=== PATIENT | female | born 1950 | race Caucasian/White ===

== ENCOUNTER 2018-08-14 08:06 | Emergency (ER) | payer OTHER ==
[2018-08-14 09:07] LABS: Absolute Lymphocytes (CBC) 2.6 K/uL (0.7-4.9); Absolute Monocytes 0.5 K/uL (0.1-1.3); Absolute Neutrophil 5.2 K/uL (1.8-8.0); Basophils % 0.8 % (0-1.3); Eosinophils % 4.7 % (0-4.4); Hematocrit 38.8 % (36.0-45.0); Lymphocytes % 29.8 % (15.3-44.8); MPV 7.7 fL (7.6-11.3); Monocytes % 5.3 % (3.3-12.3); RBC Red Blood Cell Count 4.51 M/uL (3.86-4.86)
[2018-08-14 09:25] LABS: ALT/SGPT 25 U/L (12-78); AST/SGOT 13 U/L (15-37); Albumin 3.3 g/dL (3.4-5.0); Alkaline Phosphatase 85 U/L (45-117); BUN Blood Urea Nitrogen 19 mg/dL (7-18); Bicarbonate 30 mmol/L (21-32); Bilirubin Direct 0.1 mg/dL (0-0.2); Bilirubin Total 0.4 mg/dL (0.2-1.0); CKMB Creatine Kinase MB < 1.0 ng/mL (0.3-3.6); Creatine Phosphokinase 64 U/L (26-192); Glucose Level 139 mg/dL (74-106); Lipase 150 U/L (73-393); Magnesium 1.8 mg/dL (1.8-2.4); Potassium 3.4 mmol/L (3.5-5.1); Protein, Total 7.6 g/dL (6.4-8.2); Sodium Level 138 mmol/L (136-145); Troponin (Emerg Dept Use Only) < 0.02 ng/mL (0.0-0.045)
[2018-08-14] MEDS ORDERED: NA CHLORIDE 0.9% 1,000 ML ONE (09:26)
[2018-08-14] MEDS ORDERED: PANTOPRAZOLE 40 MG INJ ONE (09:26)
[2018-08-14] MEDS ORDERED: ONDANSETRON 4 MG/2 ML VIAL ONE (09:26)
--- NOTE | 2018-08-14 10:05 | ER ---
Nurse's Notes [facility] Name: Fela Ayoub Age: 67 yrs Sex: Female : 1950 Arrival Date: 08/14/2018 Time: 08:07 Bed 5 Private MD: Diagnosis: Vasovagal syncope Presentation: 08/14 08:36 Presenting complaint: Patient states: had labs drawn, had 4 episodes of vomiting and iw diarrhea, hx of heart stents. Transition of care: patient was not received from another setting of care. Onset of symptoms was August 14, 2018. Risk Assessment: Do you want to hurt yourself or someone else? Patient reports no desire to harm self or others. Initial Sepsis Screen: Does the patient meet any 2 criteria? No. Patient's initial sepsis screen is negative. Does the patient have a suspected source of infection? No. Patient's initial sepsis screen is negative. Care prior to arrival: None. 08:36 Method Of Arrival: Wheelchair iw 08:36 Acuity: ALE 3 iw Historical: - Allergies: 08:45 Plavix; iw - Home Meds: 10:23 ozempic 0.25 weekly [Active]; basaglar kwik pen 6 BID [Active]; metoprolol tartrate 100 sv mg Oral tab 1 tab 2 times per day [Active]; irbesartan 300 mg oral tab 1 tab once daily [Active]; hydrochlorothiazide 25 mg Oral tab 2 tabs once daily [Active]; pravastatin 40 mg oral tab 1 tab once daily [Active]; amlodipine oral [Active]; - PMHx: 10:23 Diabetes - IDDM; Hypertension; High Cholesterol; sv - PSHx: 10:23 cardiac stent; Cholecystectomy; Hysterectomy; Hemorrhoidectomy; ; sv - Immunization history:: Adult Immunizations up to date. - Ebola Screening: : Patient negative for fever greater than or equal to 101.5 degrees Fahrenheit, and additional compatible Ebola Virus Disease symptoms Patient denies exposure to infectious person Patient denies travel to an Ebola-affected area in the 21 days before illness onset No symptoms or risks identified at this time. - Social history:: Smoking status: Patient/guardian denies using tobacco. Screenin:45 Abuse screen: Denies threats or abuse. Denies injuries from another. Nutritional sv screening: No deficits noted. Tuberculosis screening: No symptoms or risk factors identified. Fall Risk None identified. Assessment: 08:45 General: Appears in no apparent distress. uncomfortable, well groomed, well developed, sv Behavior is cooperative, anxious. Pain: Denies pain. Neuro: Level of Consciousness is awake, alert, obeys commands, Oriented to person, place, time, situation, Moves all extremities. Full function Gait is steady, Speech is normal, Facial symmetry appears normal, Denies syncope. Cardiovascular: Denies chest pain, lightheadedness, shortness of breath, Patient's skin is warm and dry. Rhythm is sinus rhythm. Respiratory: Airway is patent Respiratory effort is even, unlabored, Respiratory pattern is regular, symmetrical, Denies shortness of breath. GI: Reports diarrhea, indigestion, nausea, vomiting, incontinence of stool. Derm: Skin is pink, warm \T\ dry. 09:40 Reassessment: Patient appears in no apparent distress at this time. No changes from sv previously documented assessment. Patient and/or family updated on plan of care and expected duration. Pain level reassessed. Patient is alert, oriented x 3, equal unlabored respirations, skin warm/dry/pink. 11:50 Reassessment: Patient appears in no apparent distress at this time. No changes from sv previously documented assessment. Patient and/or family updated on plan of care and expected duration. Pain level reassessed. Patient is alert, oriented x 3, equal unlabored respirations, skin warm/dry/pink. 12:00 Reassessment: Dr Jurado at bedside speaking with pt and family. sv Vital Signs: 08:45 BP 166 / 69; Pulse 77; Resp 16; Pulse Ox 98% on R/A; Pain 0/10; iw 09:48 BP 141 / 64; Pulse 75; Resp 18; Temp 97.8(TE); Pulse Ox 97% on R/A; mh5 10:41 BP 134 / 54; Pulse 75; Resp 16; Pulse Ox 96% on R/A; sv 11:25 BP 129 / 46; Pulse 77; Resp 16; Temp 97.9(TE); Pulse Ox 99% on R/A; mh5 12:05 BP 133 / 56; Pulse 75; Resp 17; Temp 97.9(TE); Pulse Ox 95% on R/A; mh5 ED Course: 08:07 Patient arrived in ED. rg4 08:31 Josiah Hall, RN is Primary Nurse. hj 08:34 Angel Rosenbaum MD is Attending Physician. tw4 08:39 Debra Abdullahi, [place] is Primary Nurse. sv 08:40 EKG done, by networking technology instructor. reviewed by Angel Rosenbaum MD. sm3 08:42 Triage completed. iw 08:45 Initial lab(s) drawn, by me, sent to lab. Inserted saline lock: 20 gauge in left sv antecubital area, using aseptic technique. Blood collected. Flushed left antecubital with 5 ml normal saline. 08:45 Arm band placed on. iw 08:45 Patient has correct armband on for positive identification. Placed in gown. Bed in low sv position. Call light in reach. Side rails up X 1. Adult w/ patient. research associate on. Pulse ox on. NIBP on. Door closed. Warm blanket given. Pillow given. Head of bed elevated. 10:02 Jose Manuel Koroma MD is Hospitalizing Provider. tw4 10:07 Basic Metabolic Panel Sent. sv 10:07 CBC with Diff Sent. sv 10:07 Ckmb Sent. sv 10:26 Awaiting bed assignment. sv 12:45 No provider procedures requiring assistance completed. IV discontinued, intact, ae4 bleeding controlled, No redness/swelling at site. Pressure dressing applied. Administered Medications: 09:40 Drug: ProTONIX 40 mg Route: IVP; Site: left antecubital; sv 10:30 Follow up: Response: No adverse reaction; Marked relief of symptoms sv 09:40 Drug: NS 0.9% 1000 ml Route: IV; Rate: 1 bolus; Site: left antecubital; sv 09:40 Drug: Zofran 4 mg Route: IVP; Site: left antecubital; sv 10:30 Follow up: Response: No adverse reaction; Marked relief of symptoms sv Point of Care Testing: Blood Glucose: 08:45 Blood Glucose: 154 mg/dL; sv Ranges: Outcome: 10:03 Decision to Hospitalize by Provider. tw4 12:25 Discharge ordered by . tw4 12:45 Discharged to home ambulatory, with significant other. ae4 12:45 Condition: stable 12:45 Discharge instructions given to patient, Instructed on discharge instructions, follow up and referral plans. medication usage, Demonstrated understanding of instructions, Prescriptions given X 1. 12:47 Patient left the ED. ae4 Signatures: Debra Abdullahi, RN Geovanna Stevens RN RN iw Joaquin, Henry, RN RN hj Garcia, Rubi 4 Lindy Sneed 5 Angel oRsenbaum MD MD tw4 Manju Jimenez 3 Cabrera Live RN RN ae4
--- NOTE | 2018-08-14 10:05 | EDPHYS ---
Physician Documentation [facility] Name: Fela Ayoub Age: 67 yrs Sex: Female : 1950 Arrival Date: 08/14/2018 Time: 08:07 Bed 5 Private MD: ED Physician Angel Rosenbaum HPI: 08/14 16:08 This 67 yrs old Female presents to ER via Wheelchair with complaints of tw4 Syncope, Nausea/Vomiting/Diarrhea. 16:08 The patient has experienced near-syncope. Onset: The symptoms/episode began/occurred tw4 just prior to arrival. Duration: This was a single episode. Context: the episode(s) was witnessed, by family. Associated injury: The patient did not suffer any apparent associated injury. Associated signs and symptoms: The patient has no apparent associated signs or symptoms. Current symptoms: Currently, the patient is not experiencing any symptoms. The patient has not experienced similar symptoms in the past. Historical: - Allergies: 08:45 Plavix; iw - Home Meds: 10:23 ozempic 0.25 weekly [Active]; basaglar kwik pen 6 BID [Active]; metoprolol tartrate 100 sv mg Oral tab 1 tab 2 times per day [Active]; irbesartan 300 mg oral tab 1 tab once daily [Active]; hydrochlorothiazide 25 mg Oral tab 2 tabs once daily [Active]; pravastatin 40 mg oral tab 1 tab once daily [Active]; amlodipine oral [Active]; - PMHx: 10:23 Diabetes - IDDM; Hypertension; High Cholesterol; sv - PSHx: 10:23 cardiac stent; Cholecystectomy; Hysterectomy; Hemorrhoidectomy; ; sv - Immunization history:: Adult Immunizations up to date. - Ebola Screening: : Patient negative for fever greater than or equal to 101.5 degrees Fahrenheit, and additional compatible Ebola Virus Disease symptoms Patient denies exposure to infectious person Patient denies travel to an Ebola-affected area in the 21 days before illness onset No symptoms or risks identified at this time. - Social history:: Smoking status: Patient/guardian denies using tobacco. ROS: 16:08 Constitutional: Negative for fever, chills, and weight loss, Eyes: Negative for injury, tw4 pain, redness, and discharge, Cardiovascular: Negative for chest pain, palpitations, and edema, Respiratory: Negative for shortness of breath, cough, wheezing, and pleuritic chest pain, Back: Negative for injury and pain, MS/Extremity: Negative for injury and deformity, Skin: Negative for injury, rash, and discoloration. 16:08 Abdomen/GI: Positive for nausea, vomiting, and diarrhea, nausea. 16:08 Neuro: Positive for near syncope. Exam: 16:08 Constitutional: This is a well developed, well nourished patient who is awake, alert, tw4 and in no acute distress. Head/Face: Normocephalic, atraumatic. Chest/axilla: Normal chest wall appearance and motion. Nontender with no deformity. No lesions are appreciated. Cardiovascular: Regular rate and rhythm with a normal S1 and S2. No gallops, murmurs, or rubs. Normal PMI, no JVD. No pulse deficits. Respiratory: Lungs have equal breath sounds bilaterally, clear to auscultation and percussion. No rales, rhonchi or wheezes noted. No increased work of breathing, no retractions or nasal flaring. Abdomen/GI: Soft, non-tender, with normal bowel sounds. No distension or tympany. No guarding or rebound. No evidence of tenderness throughout. Back: No spinal tenderness. No costovertebral tenderness. Full range of motion. MS/ Extremity: Pulses equal, no cyanosis. Neurovascular intact. Full, normal range of motion. Neuro: Awake and alert, GCS 15, oriented to person, place, time, and situation. Cranial nerves II-XII grossly intact. Motor strength 5/5 in all extremities. Sensory grossly intact. Cerebellar exam normal. Normal gait. Vital Signs: 08:45 BP 166 / 69; Pulse 77; Resp 16; Pulse Ox 98% on R/A; Pain 0/10; iw 09:48 BP 141 / 64; Pulse 75; Resp 18; Temp 97.8(TE); Pulse Ox 97% on R/A; mh5 10:41 BP 134 / 54; Pulse 75; Resp 16; Pulse Ox 96% on R/A; sv 11:25 BP 129 / 46; Pulse 77; Resp 16; Temp 97.9(TE); Pulse Ox 99% on R/A; mh5 12:05 BP 133 / 56; Pulse 75; Resp 17; Temp 97.9(TE); Pulse Ox 95% on R/A; mh5 MDM: 08:34 Patient medically screened. tw4 16:08 Differential Diagnosis: aortic aneurysm, cardiac arrhythmia, emotional response, tw4 idiopathic syncope. Data reviewed: vital signs, nurses notes. Data interpreted: Pulse oximetry:. Counseling: I had a detailed discussion with the patient and/or guardian regarding: the historical points, exam findings, and any diagnostic results supporting the discharge/admit diagnosis. Physician consultation: Reginaldo Jurado MD regarding admission, and will see patient in the [facility]. Special discussion: I discussed with the patient/guardian in detail that at this point there is no indication for admission to the hospital. It is understood, however, that if the symptoms persist or worsen the patient needs to return immediately for re-evaluation. 08/14 08:36 Order name: Basic Metabolic Panel tw4 08/14 08:36 Order name: CBC with Diff tw4 08/14 08:36 Order name: Ckmb tw4 08/14 08:36 Order name: CPK tw4 08/14 08:36 Order name: Hepatic Function tw4 08/14 08:36 Order name: Lipase tw4 08/14 08:36 Order name: Magnesium tw4 08/14 08:36 Order name: Protime (+inr) tw4 08/14 08:36 Order name: Ptt, Activated tw4 08/14 08:36 Order name: Troponin (emerg Dept Use Only) tw4 08/14 08:39 Order name: Basic Metabolic Panel; Complete Time: 11:07 EDWV 08/14 08:39 Order name: CBC with Automated Diff EDWV 08/14 08:39 Order name: CKMB Creatine Kinase MB EDWV 08/14 10:03 Order name: Glucose, Ancillary Testing EDWV 08/14 08:36 Order name: EKG; Complete Time: 08:39 tw4 08/14 08:36 Order name: Cardiac monitoring; Complete Time: 10:06 tw4 08/14 08:36 Order name: EKG - Nurse/Tech; Complete Time: 10:06 4 08/14 08:36 Order name: IV Saline Lock; Complete Time: 10:06 08/14 08:36 Order name: Labs collected and sent; Complete Time: 10:06 4 08/14 08:36 Order name: NPO; Complete Time: 10: tw4 08/14 08:36 Order name: O2 Per Protocol; Complete Time: 10:4 08/14 08:36 Order name: O2 Sat Monitoring; Complete Time: 10: tw4 Administered Medications: 09:40 Drug: ProTONIX 40 mg Route: IVP; Site: left antecubital; sv 10:30 Follow up: Response: No adverse reaction; Marked relief of symptoms sv 09:40 Drug: NS 0.9% 1000 ml Route: IV; Rate: 1 bolus; Site: left antecubital; sv 09:40 Drug: Zofran 4 mg Route: IVP; Site: left antecubital; sv 10:30 Follow up: Response: No adverse reaction; Marked relief of symptoms sv Point of Care Testing: Blood Glucose: 08:45 Blood Glucose: 154 mg/dL; sv Ranges: Critical Glucose Levels:Adult <50 mg/dl or >400 mg/dl <40 mg/dl or >180 mg/dl Disposition: 08/14/18 12:25 Discharged to Home. Impression: Vasovagal syncope. - Condition is Stable. - Discharge Instructions: Gastritis, Adult, Vasovagal Syncope, Adult. - Prescriptions for Protonix 40 mg Oral Tablet - take 1 tablet by ORAL route once daily; 30 tablet. - Medication Reconciliation Form, Thank You Letter, Antibiotic Education, Prescription Opioid Use form. - Follow up: Private Physician; When: Upon discharge from the Emergency Department; Reason: If symptoms return, Recheck today's complaints, Continuance of care. - Problem is new. - Symptoms have improved. Signatures: Dispatcher [employer] [facility] Lorrie Mayes Stephanie, RN [place] Geovanna Peterson, [place] VAN iw Angel Rosenbaum MD MD tw4 Cabrera Live RN RN ae4 Corrections: (The following items were deleted from the chart) 08:58 08:38 Head Brain Wo [id number].BRZ ordered. [facility] 11:51 10:03 Hospitalization Ordered by Jose Manuel Koroma MD for Inpatient Admission. Preliminary tw4 diagnosis is Chest pain, unspecified. Bed requested for Telemetry/MedSurg (Inpatient). Status is Inpatient Admission. Condition is Stable. Problem is new. Symptoms have improved. UTI on Admission? No. tw4 11:51 11:51 08/14/2018 10:03 Hospitalization Ordered by Jose Manuel Koroma MD for Inpatient tw4 Admission. Preliminary diagnosis is Chest pain, unspecified; vasovagal syncope. Bed requested for Telemetry/MedSurg (Inpatient). Status is Inpatient Admission. Condition is Stable. Problem is new. Symptoms have improved. UTI on Admission? No. tw4 11:55 11:51 08/14/2018 10:03 Hospitalization Ordered by Jose Manuel Koroma MD for Observation. bd Preliminary diagnosis is Chest pain, unspecified; vasovagal syncope. Bed requested for Telemetry/MedSurg (observation). Status is Observation. Condition is Stable. Problem is new. Symptoms have improved. UTI on Admission? No. tw4 12:24 11:55 08/14/2018 10:03 Hospitalization Ordered by Jose Manuel Koroma MD for Observation. tw4 Preliminary diagnosis is Chest pain, unspecified; vasovagal syncope. Bed requested for Telemetry/MedSurg (observation). Status is Observation. Condition is Stable. Problem is new. Symptoms have improved. UTI on Admission? No. bd 12:47 12:25 08/14/2018 12:25 Discharged to Home. Impression: Vasovagal syncope. Condition is ae4 Stable. Forms are Medication Reconciliation Form, Thank You Letter, Antibiotic Education, Prescription Opioid Use. Follow up: Private Physician; When: Upon discharge from the Emergency Department; Reason: If symptoms return, Recheck today's complaints, Continuance of care. Problem is new. Symptoms have improved. tw4
[2018-08-14 10:15] LABS: Protime INR 0.94
--- NOTE | 2018-08-14 12:03 | EKG ---
Test Date: 2018-08-14 Test Time: 08:38:16 Scientific Aide: RAMESH MEASUREMENT RESULTS: Intervals: Rate: 77 SD: 218 QRSD: 102 QT: 408 QTc: 461 [place]: P: 50 SD: 218 QRS: -11 T: -3 INTERPRETIVE STATEMENTS: Sinus rhythm with 1st degree AV block Otherwise normal ECG No previous ECG available for comparison Electronically Signed On 08-14-18 12:02:05 CDT by Reginaldo Jurado
--- NOTE | 2018-08-14 17:27 | CON ---
Date of Consultation: 08/14/[address] Koroma service on 08/14/2018. I saw the patient on 08/14/2018. History Of Present Illness: Ms. Ayoub is a 67-year-old woman. She is well known to our practice. Dr. Begum had sent her for blood work today. While she was getting the blood work, she developed severe nausea and vomiting and had chest pain after that and had a syncopal episode. She has been re cently taking medication for UTI. She also had her diabetes medicine doubled specifically medicine gemini Villanueva by Dr. Madden. She had not had any symptoms prior to this episode today as far as chest pain is concerned. She does have a history of coronary artery disease status post LAD stent. In , she had a 50% LAD stenosis, 40% diagonal stenosis. 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 Past Medical History: Include dyslipidemia, hypertension, diabetes, and coronary artery disease as s tated earlier. Allergies: SHE IS ALLERGIC TO PLAVIX. Review of Systems: Negative. Social History: Negative. Family History: Noncontributory. Medications: At home include Norvasc, hydrochlorothiazide, Pravachol, Ozempic, metoprolol, irbesarta n. Physical Examination: General: Ms. Ayoub was pleasant, in no acute distress. Vital Signs: Stable, afebrile. HEENT: Negative. Neck: Supple without any bruit, lymphadenopathy, JVD, or thyromegaly. Chest: Clear to auscultation and percussion. Cardiac exam: Revealed a regular rhythm and rate. No murmurs, gallops, or rubs. Abdomen: Benign. Extremities: Revealed no clubbing, cyanosis, or edema. Diagnostic Data: Her potassium was 3.4. Glucose was 139. EKG was normal. Troponin was negative. Impression And Plan: Atypical chest pain, most likely gastroesophageal reflux disease in nature. I think her nausea and vomiting may have exacerbated the chest pain and certainly the syncope is vasova gal reaction. Her low potassium may have contributed to this. She also has had a UTI recently, whic h may have contributed. She also had doubled her diabetes medicine yesterday. I do not think we are dealing with any acute coronary syndrome. Her troponin is negative. Her EKG is negative. Her bloo d pressure is well controlled. Her dyslipidemia is well controlled. There is blood work that is pen ding. Her diabetes is fairly well controlled. I think Ms. Ayoub can go home today. We do not ne ed to do any more extensive cardiac workup at this point. However, she will come to see me next week in the office and if she has any more chest pain, we may have to reconsider a heart catheterization. Her last investigation as far as her coronaries was in 2016. JOHANN/KENIA Voice ID: [id number] Report ID: [id number]
--- NOTE | 2018-08-14 20:43 | HP ---
Date of Admission: 08/14/2018 Code Status: Full. History Of Present Illness: The patient is a 67-year-old female with past medical history of coronary artery disease, diabetes, hypertension, obesity, who was in her usual state of health until day of admission. The patient had come in for lab draw, ordered by Dr. Begum. After the lab draw, the patient had sudden onset of nausea, vomiting, dizziness, threw up 4 times and had sudden onset of chest pain, which was substernal, nonradiating, sharp. The patient felt woozy, had a near syncopal episode, however, did not lose consciousness completely. The patient's symptoms were constant, moderate, progressively worsening. She was referred to the ER from the lab, and her workup there revealed normal EKG, cardiac enzymes. Initial troponin level was negative. She did have low potassium level and her hemoglobin levels were normal. The patient was then referred for admission for chest pain and near syncopal episode. When seen in the ER, she was awake, alert, oriented x3. Chest pain had improved with treatment. Past Medical History: Coronary artery disease status post stent, diabetes mellitus type 2, hypertension, hyperlipidemia, obesity. Surgical History: Cardiac stent in the LAD. Allergies: TO PLAVIX. Medications: List reviewed. Family History: The patient denies any premature coronary artery disease in the family. Social History: The patient denies any tobacco use, alcohol use, or illicit drug use. The patient is , independent in her activities of daily living. Review of Systems: Ten-point system reviewed, negative except as per HPI. Physical Examination: Vital Signs: Blood pressure 166/69, pulse 77, respirations 16, pulse ox 98% on room air, temperature 97.8. General: Awake, alert, oriented x3, in some mild distress, morbidly obese female. HEENT: Normocephalic, atraumatic. PERRLA. EOMI. Dry mucous membranes. Oropharynx is clear. Conjunctivae anicteric. Neck: Supple. No JVD. Trachea midline. CV: S1, S2. Regular rate and rhythm. No murmurs. Respiratory: Moving air well bilaterally. No wheezing or stridor. No use of accessory muscles. Gastrointestinal: Abdomen is soft, nontender, nondistended. Positive bowel sounds. No guarding or rigidity. Extremities: No clubbing, cyanosis, or edema. No calf tenderness. Neuro: Cranial nerves 2-12 intact grossly. No focal neurological deficits. Speech is normal. Skin: No rashes. Normal skin turgor. Psych: Mood is okay. Affect is full. Insight and judgment are good. Laboratory Data: WBC 8.7, H and H 13.4 and 38.8, platelets 364, neutrophils 59% . INR 0.94. Sodium 138, potassium 3.4, chloride 102, CO2 30, BUN 19, creatinine 0.64, glucose 139, calcium 8.8, magnesium 1.8. Rapid troponin level less than 0.02. Assessment And Plan: A 67-year-old female with: 1. Unstable angina. The patient has multiple risk factors including previous coronary artery disease status post stent with blockage in her diagonal that is not amenable to stenting, diabetes, hypertension, hyperlipidemia, obesity. The patient has a heart score of 6. Initial cardiac enzyme and EKG are negative. We will rule out ACS. Cardiology has been consulted by Dr. Rosenbaum in the ER. He spoke with Dr. Begum in his office. I will reach out to Dr. Jurado, who is on-call. We will obtain echocardiogram if it has not been done in the past 6 months. We will start on chest pain guidelines. 2. Near syncopal episode, likely related to dehydration versus possible vasovagal episode while the patient had labs drawn. We will continue to monitor. No further episodes. 3. Morbid obesity. 4. Diabetes mellitus type 2, insulin requiring. We will continue sliding scale insulin and monitor blood glucose levels. 5. Essential hypertension. We will resume home medications as appropriate. 6. Mixed hyperlipidemia. Continue statin. 7. Coronary artery disease status post stent, [place] artery and [place] heart, with angina. We will continue on aspirin. Plan: Admit the patient to Med-Surg, place on observation. ADDENDUM: Patient was evaluated by Dr. Jurado. She is pain free, negative troponin and no acute changes on EKG. He recommended out patient follow up in his office - appt is for Monday08/20/18. Dr. Jurado recommends discharge. ER contacted. Patient being DC home with close outpt f/up. She understands to return to ER for worsening condition. /KENIA Voice ID: [id number] LANE
== END 2018-08-14 12:47 | disposition home or self-care (01) ==
LOC: ER 08:06 → ERHOLD 10:56 → UNDOADMOB 10:56 → ER 12:47
DX: R55 Syncope and collapse (principal); I10 Essential (primary) hypertension; E11.9 Type 2 diabetes mellitus without complications; E78.00 Pure hypercholesterolemia, unspecified; Z88.8 Allergy status to other drugs, medicaments and biological substances; Z95.818 Presence of other cardiac implants and grafts
CPT/HCPCS: 93005; 85025; 80048; 36415; 83735; 82550; 85610; 82962; 80076; 85730; 84484; 82553; 83690; 96375; 96374; 99284; C9113; J7030; J2405

== ENCOUNTER 2018-08-28 06:16 | Day surgery (SDC) | payer OTHER ==
--- NOTE | 2018-08-27 13:56 | RAD REPORT ---
EXAM DESCRIPTION: RAD - Chest Pa And Lat (2 Views) - 08/27/2018 1:51 pm CLINICAL HISTORY: preop Chest pain. COMPARISON: No comparisons FINDINGS: The lungs are clear. The heart is normal in size. No displaced fractures. IMPRESSION: No acute or concerning finding suspected.
[2018-08-28] MEDS ORDERED: HEPA 1000U/500MLS 1,000 UNIT/500 ML BAG IV ONE (06:52)
[2018-08-28] MEDS ORDERED: LIDOCAINE 1% MPF 30 ML VIAL ONE (06:52)
[2018-08-28] MEDS ORDERED: NA CHLORIDE 0.9% 500 ML ONE (06:52)
[2018-08-28] MEDS ORDERED: MIDAZOLAM HCL 2 MG/2 ML INJ ONE ×2 (07:40→07:46)
[2018-08-28] MEDS ORDERED: FENTANYL CITR 100 MCG/2 ML ONE (07:41)
[2018-08-28] MEDS ORDERED: ATROPINE SULF 1 MG/10 ML SYR IV ONE (07:41)
[2018-08-28] MEDS ORDERED: NA CHLORIDE 0.9% 0 ML ONE (07:41)
[2018-08-28] MEDS ORDERED: METHYLPREDNISOLONE 125 MG INJ ONE (07:43)
--- NOTE | 2018-08-28 12:05 | OP ---
Date of Procedure: 08/28/2018 Surgeon: Reginaldo Jurado MD Lamp Cleaner: Kvng. Procedures: Left heart catheterization, selective coronary arteriogram. Indication: Unstable angina. History Of Present Illness: Ms. Ayoub is a 67-year-old woman who has had a history of coronary ar angelique disease and stent before in the LAD, admitted today as an outpatient, was given 3 mg of Versed f or sedation, she was given fentanyl as well, was given Solu-Medrol 125 for allergy to the dye. She w as prepped and draped in the routine sterile fashion. A 6-Khmer sheath introduced in the right comm on femoral artery. Angiography there was normal. Angio-Seal was used to close the case. She was fo und using Gerson catheter to have diffuse disease throughout. She had a 90% distal posterolateral a rtery stenosis off the RCA. She had a 50% first OM. She had a long small ramus branch with multiple stenosis of 50%-70% each. Her LAD proximal had a 50% in-stent restenosis. There was a 90% ostial d iagonal lesion. There were no complications. Blood Loss: 5 cc. Postoperative Diagnosis: Moderate to severe CAD. Plan: Plan is for medical therapy. Anesthesia: Total conscious sedation was 30 minutes. The patient will be treated medically. We will see her in the office in the next 2 weeks. She will go home today. JOHANN/KENIA Voice ID: [id number] Report ID: [id number]
== END 2018-08-28 10:22 | disposition home or self-care (01) ==
LOC: CCL 06:16
DX: T82.855A Stenosis of coronary artery stent, initial encounter (principal); I25.110 Atherosclerotic heart disease of native coronary artery with unstable angina pectoris; I10 Essential (primary) hypertension; E78.2 Mixed hyperlipidemia; E11.9 Type 2 diabetes mellitus without complications; Z95.5 Presence of coronary angioplasty implant and graft; Z79.82 Long term (current) use of aspirin; Z79.4 Long term (current) use of insulin; Z79.899 Other long term (current) drug therapy; E66.9 Obesity, unspecified; Z68.41 Body mass index [BMI] 40.0-44.9, adult
CPT/HCPCS: 82962; 71046; 93454; C1893; C1760; J2250 ×2; J3010; J2930; J0583

== ENCOUNTER 2019-03-21 07:21 | Day surgery (SDC) | payer OTHER ==
--- NOTE | 2019-03-20 16:02 | RAD REPORT ---
EXAM DESCRIPTION: Tori Price (2 Views)03/20/2019 3:47 pm CLINICAL HISTORY: Hypertension/preop exam for cardiac catheterization COMPARISON: August 2018 FINDINGS: The lungs appear clear of acute infiltrate. The heart is normal size IMPRESSION: No acute abnormalities displayed
[2019-03-20 16:11] LABS: Absolute Lymphocytes (CBC) 3.3 K/uL (0.7-4.9); Hematocrit 36.5 % (36.0-45.0); Lymphocytes % 32.1 % (15.3-44.8); MPV 7.7 fL (7.6-11.3); RBC Red Blood Cell Count 4.21 M/uL (3.86-4.86)
[2019-03-20 16:34] LABS: Potassium 3.7 mmol/L (3.5-5.1)
[2019-03-20 16:48] LABS: Protime INR 0.93
[2019-03-21] MEDS ORDERED: HEPA 1000U/500MLS 1,000 UNIT/500 ML BAG IV ONE (08:29)
[2019-03-21] MEDS ORDERED: MIDAZOLAM HCL 2 MG/2 ML INJ ONE ×2 (09:09→09:38)
[2019-03-21] MEDS ORDERED: FENTANYL CITR 100 MCG/2 ML ONE ×2 (09:09→09:38)
[2019-03-21] MEDS ORDERED: ATROPINE SULF 1 MG/10 ML SYR IV ONE (09:10)
[2019-03-21] MEDS ORDERED: NA CHLORIDE 0.9% 50 ML ONE (09:10)
[2019-03-21] MEDS ORDERED: METHYLPREDNISOLONE 125 MG INJ ONE (09:38)
[2019-03-21] MEDS ORDERED: NITROGLYCERIN 100 MCG/ML SYR (for cath lab use only) IV ONE (09:51)
[2019-03-21] MEDS ORDERED: NITROGLYCERIN/D5W 25 MG/250 ML BTL IV ONE (09:51)
[2019-03-21] MEDS ORDERED: NA CHLORIDE 0.9% 0 ML ONE (09:55)
[2019-03-21] MEDS ORDERED: PRASUGREL (EFFIENT) 10 MG TAB ONE (10:25)
[2019-03-21] MEDS ORDERED: ASPIRIN 325 MG TAB ONE (10:28)
--- NOTE | 2019-03-21 11:01 | EKG ---
Test Date: 2019-03-20 Test Time: 15:33:24 Underwriting Analyst: ROSS MEASUREMENT RESULTS: Intervals: Rate: 65 CA: 254 QRSD: 102 QT: 406 QTc: 422 [place]: P: 58 CA: 254 QRS: -6 T: -2 INTERPRETIVE STATEMENTS: Sinus rhythm with 1st degree AV block Nonspecific ST and T wave abnormality Abnormal ECG Compared to ECG 08/14/2018 08:38:16 ST (T wave) deviation now present Electronically Signed On 03-21-19 10:58:27 DIRECTOR FACILITIES MAINTENANCE by Reginaldo Jurado
[2019-03-21] MEDS ORDERED: NITROGLYCERIN 0.4 MG/TAB SL PRN (14:00)
[2019-03-21] MEDS ORDERED: ACETAMINOPHEN 325 MG TABLET PO PRN (14:00)
[2019-03-21] MEDS ORDERED: NA CHLORIDE 0.9% 1,000 ML IV SCH (14:00)
[2019-03-21 14:22] VITALS: BMI 40.1
[2019-03-21 16:40] VITALS: O2SAT 97
[2019-03-21] MEDS ORDERED: D50W 25 GM/50 ML SYRINGE/VIAL IV PRN (17:19)
[2019-03-21] MEDS ORDERED: GLUCAGON 1 MG/VIAL IM PRN (17:19)
[2019-03-21] MEDS: INSULIN -REGULAR HUMAN 50 UNIT/0.5 ML ML SQ SCH ×2 (18:34→22:06)
[2019-03-21] MEDS ORDERED: INSULIN GLARGINE 60 UNIT SQ SCH (21:00)
[2019-03-21] MEDS ORDERED: MORPHINE 10 MG/ML VIAL IV PRN (21:47)
[2019-03-21] MEDS ORDERED: DIAZEPAM 5 MG TABLET PO PRN (21:48)
[2019-03-21] MEDS ORDERED: ATORVASTATIN 80 MG TAB PO SCH (22:00)
[2019-03-21] MEDS: METOPROLOL TAR 50 MG TAB PO SCH (22:05)
[2019-03-21] MEDS: INSULIN GLARGINE 100 UNITS/ML SQ SCH (22:06)
--- NOTE | 2019-03-21 23:42 | OP ---
Date of Procedure: 03/21/2019 Surgeon: Reginaldo Jurado MD Sheet Metal Welder: 1. Sofia Dutton. 2. Lorenzo Coleman. Patient will be staying overnight and she will be going home in the morning. Procedures: Left heart catheterization, selective coronary arteriogram, primary stent of the first O M, and primary stent of the ramus. History: Ms. Ayoub is 68, has had documented coronary artery disease in the past. Has had an LAD stent in the past. Over the last few months the catheterization was done, but I decided to treat he r medically. At that time she had what appeared to be a 40% to 50% LAD stenosis and 99% diagonal hernando nosis. She had what I thought was moderate disease of the ramus and the OM. She continued, however, to have chest pain with minimal exertion. I decided to bring her back to the label coder. Description Of Procedure: She was prepped and draped in the routine sterile fashion. Given Versed a nd fentanyl for sedation. A 6-Libyan sheath introduced in the right common femoral artery. She had an Angio-Seal to close the case. Angiography there was normal. A 6-Libyan Gerson catheter left and right were used respectively in the left main and the right main. Her RCA was normal. She had dist al diffuse disease in the PDA. She had about what appeared to be a 70% to 80% stenosis in the first obtuse marginal, about 70% to 80% stenosis in the ramus, 99% in the first diagonal, 40% LAD stenosis within an old stent. I decided for symptoms release to stent and the ramus. An XB LAD 3.5 guide wit h side hole was used to cannulate the left main. Initially the cougar wire was used to cross the OM lesion. A 2.5 x 12 Synergy stent was placed at 12 atmospheres with 0% residual. Following that, the cougar wire was placed in the ramus. A 2.25 x 12 Synergy stent was placed at 12 atmospheres with 0% residual. Patient tolerated the procedure well. Complications: There were no complications. Blood Loss: 5 mL. Final Diagnosis: Coronary artery disease status post successful stent of the ramus and OM. Anesthesia: Total conscious sedation was 45 minutes. Patient received Angiomax and Effient and aspi rin during the procedure. She also received Solu-Medrol and prednisone prior to the procedure leonela meier of iodine allergies. When she goes home, she will be on her home medications plus Effient 10 mg da marci. JOHANN/KENIA Voice ID: [id number] Report ID: [id number]
[2019-03-22 04:25] LABS: Absolute Lymphocytes (CBC) 1.8 K/uL (0.7-4.9); Basophils % 0.1 % (0-1.3); Hematocrit 32.8 % (36.0-45.0); Lymphocytes % 12.8 % (15.3-44.8); MPV 8.1 fL (7.6-11.3); RBC Red Blood Cell Count 3.76 M/uL (3.86-4.86)
[2019-03-22 04:45] LABS: Potassium 3.7 mmol/L (3.5-5.1)
[2019-03-22] MEDS ORDERED: MORPHINE 4 MG/ML SYR IV PRN (07:23)
[2019-03-22] MEDS: INSULIN -REGULAR HUMAN 50 UNIT/0.5 ML ML SQ SCH (08:10)
--- NOTE | 2019-03-22 08:11 | EKG ---
Test Date: 2019-03-20 Test Time: 15:33:56 Boat Diesel Motor Mechanic: ROSS MEASUREMENT RESULTS: Intervals: Rate: 65 WI: 254 QRSD: 102 QT: 422 QTc: 438 [place]: P: 59 WI: 254 QRS: -7 T: -6 INTERPRETIVE STATEMENTS: Sinus rhythm with 1st degree AV block Nonspecific ST abnormality Abnormal ECG Compared to ECG 03/20/2019 15:33:24 No significant changes Electronically Signed On 03-22-19 08:07:41 MARKET DEVELOPMENT EXECUTIVE by Reginaldo Jurado
[2019-03-22] MEDS ORDERED: AMLODIPINE 10 MG TAB PO SCH (09:00)
[2019-03-22] MEDS ORDERED: ASPIRIN 325 MG TAB PO SCH (09:00)
[2019-03-22] MEDS ORDERED: ASPIRIN EC 81 MG TAB PO SCH (09:00)
[2019-03-22] MEDS ORDERED: PRASUGREL (EFFIENT) 10 MG TAB PO SCH (09:00)
[2019-03-22] MEDS ORDERED: hydroCHLOROthiazide 25 MG TAB PO SCH (09:00)
[2019-03-22] MEDS ORDERED: IRBESARTAN 150 MG TAB PO SCH (09:00)
[2019-03-22 09:31] VITALS: BP 122/58; TEMP 97
[2019-03-22] MEDS: INSULIN GLARGINE 100 UNITS/ML SQ SCH (10:06)
[2019-03-22] MEDS: METOPROLOL TAR 50 MG TAB PO SCH (10:08)
--- NOTE | 2019-03-22 15:41 | PN ---
Date of Progress Note: 03/22/2019 Ms. Ayoub was admitted as an outpatient to the skill [facility] yesterday for unstable angina and coronary artery disease. She underwent a primary stent of her OM and her ramus. Overnight, she had no groin complication. Her telemetry stayed normal. Her chest was clear. She had no edema. She had good d istal pulses. She had no chest pain. We will plan to send her home with oral medications except pradip t at this time, she will be on Lipitor 80 mg daily instead of the pravastatin. I will also put her o n Effient as she is allergic to Plavix. Her sugar is still poorly controlled. She is on medium scal e insulin. She got Solu-Medrol yesterday for iodine allergy and I am sure that has exacerbated her b lood glucose. She is to start her metformin tomorrow as she will hold it for 48 hours after the cath eterization. Hopefully, her sugar will be better controlled. We will keep an eye on that as an outp atient. She can go home today. JOHANN/KENIA Voice ID: [id number] Report ID: [id number]
== END 2019-03-22 12:41 | disposition home or self-care (01) ==
LOC: CCL 07:21 → 4TH 10:56 → CCL 03-22 12:41
DX: I25.110 Atherosclerotic heart disease of native coronary artery with unstable angina pectoris (principal); I10 Essential (primary) hypertension; E78.5 Hyperlipidemia, unspecified; E11.9 Type 2 diabetes mellitus without complications; E66.9 Obesity, unspecified; Z95.5 Presence of coronary angioplasty implant and graft; Z88.8 Allergy status to other drugs, medicaments and biological substances
CPT/HCPCS: 93005 ×2; 85025 ×2; 80048 ×2; 36415 ×2; 85610; 80061; 82947 ×6; 85347 ×2; 85730; 71046; 93454; C1893; C1725; C9601; C9600; J2250 ×2; J3010 ×2; J0583; J2930; J1815; J7040

== ENCOUNTER 2020-10-20 10:46 | Inpatient (IN) | payer OTHER ==
[2020-10-20 13:19] LABS: Absolute Lymphocytes (CBC) 2.4 K/uL (0.7-4.9); Basophils % 0.1 % (0-1.3); Hematocrit 35.8 % (36.0-45.0); Lymphocytes % 30.6 % (15.3-44.8); MPV 7.8 fL (7.6-11.3); RBC Red Blood Cell Count 4.22 M/uL (3.86-4.86)
[2020-10-20 13:28] LABS: Protime INR 0.87
--- NOTE | 2020-10-20 13:43 | RAD REPORT ---
EXAM DESCRIPTION: RAD - Chest Single View - 10/20/2020 1:39 pm CLINICAL HISTORY: CHEST PAIN COMPARISON: Chest Pa And Lat (2 Views) dated 03/20/2019; Chest Pa And Lat (2 Views) dated 08/27/2018 FINDINGS: No evidence of edema or pneumonia. The heart size is within normal limits.No acute osseous abnormality. No significant pleural effusions or pneumothorax. IMPRESSION: No acute cardiopulmonary disease.
[2020-10-20 13:48] LABS: ALT/SGPT 26 U/L (12-78); AST/SGOT 12 U/L (15-37); Albumin 3.4 g/dL (3.4-5.0); Alkaline Phosphatase 61 U/L (45-117); BUN Blood Urea Nitrogen 24 mg/dL (7-18); Bicarbonate 28 mmol/L (21-32); Bilirubin Direct 0.1 mg/dL (0-0.2); Bilirubin Total 0.5 mg/dL (0.2-1.0); Glucose Level 168 mg/dL (74-106); Magnesium 1.7 mg/dL (1.8-2.4); NT PRO-BNP 190 pg/mL (<125); Potassium 4.1 mmol/L (3.5-5.1); Protein, Total 7.2 g/dL (6.4-8.2); Sodium Level 138 mmol/L (136-145); Troponin (Emerg Dept Use Only) < 0.02 ng/mL (0.0-0.045)
[2020-10-20] MEDS ORDERED: MAGNESIUM SULFATE 1 gm IVPB 0 GM/0 ML BAG IV ONE (14:32)
[2020-10-20] MEDS ORDERED: MAGNESIUM SULFATE 1 gm IVPB 1 GM/100 ML BAG IV ONE (14:33)
--- NOTE | 2020-10-20 15:01 | EDPHYS ---
Physician Documentation [facility] Name: Fela Ayoub Age: 69 yrs Sex: Female : 1950 Arrival Date: 10/20/2020 Time: 10:47 Bed 16 Private MD: Sahil Howard V ED Physician Paulina Hensley HPI: 10/20 14:33 This 69 yrs old Female presents to ER via Ambulatory with complaints of Chest jr8 Pain. 14:33 The patient or guardian reports chest pain that is located primarily in the substernal jr8 area. Onset: acutely, today. The pain does not radiate. Associated signs and symptoms: Pertinent positives: shortness of breath. The chest pain is described as a pressure, stabbing. Duration: The patient or guardian reports multiple episodes, that wax and wane. Modifying factors: The symptoms are alleviated by rest, the symptoms are aggravated by activity. Severity of pain: At its worst the pain was mild in the emergency department the pain is unchanged. The patient has experienced similar episodes in the past, a few times. The patient has not recently seen a physician. This is a 69-year-old female patient that presented to the emergency room for ongoing intermittent chest pain over the last 24 hours. Stated that she has had this a couple times in the past and ended up having to have stents and or cleaning with restenting secondary to atherosclerotic changes. Patient stated that the pain in her chest that she has been experiencing is similar to what she has had in the past and is also noted to have increased chest pain with exertion at this point.. Historical: - Allergies: 11:58 Plavix; jl7 11:58 Iodine; jl7 - Home Meds: 11:58 hydrochlorothiazide 25 mg Oral tab 1 tab once daily [Active]; irbesartan 300 mg Oral jl7 tab 1 tab once daily [Active]; metoprolol tartrate 100 mg Oral tab 1 tab 3 times per day [Active]; pravastatin 40 mg Oral tab 1 tab once daily [Active]; basaglar kwik pen 6 BID [Active]; Radiation [Active]; - PMHx: 11:58 Diabetes - IDDM; High Cholesterol; Hypertension; squamous cell carcinoma; jl7 - PSHx: 12:01 Total abdominal hysterectomy; Cholecystectomy; section; Coronary artery bypass jl7 graft; cardiac stents; - Immunization history:: Adult Immunizations up to date, Client reports receiving the 2nd dose of the Covid vaccine, Moderna. - Social history:: Smoking status: Patient denies any tobacco usage or history of. ROS: 14:33 Eyes: Negative for injury, pain, redness, and discharge, ENT: Negative for injury, jr8 pain, and discharge, Neck: Negative for injury, pain, and swelling, Respiratory: Negative for shortness of breath, cough, wheezing, and pleuritic chest pain, Abdomen/GI: Negative for abdominal pain, nausea, vomiting, diarrhea, and constipation, Back: Negative for injury and pain, MS/Extremity: Negative for injury and deformity, Skin: Negative for injury, rash, and discoloration, Neuro: Negative for headache, weakness, numbness, tingling, and seizure. 14:33 Cardiovascular: Positive for chest pain, palpitations, Negative for edema, orthopnea, paroxysmal nocturnal dyspnea. Exam: 14:33 Constitutional: This is a well developed, well nourished patient who is awake, alert, jr8 and in no acute distress. Neck: Trachea midline, no thyromegaly or masses palpated, and no cervical lymphadenopathy. Supple, full range of motion without nuchal rigidity, or vertebral point tenderness. No Meningismus. Chest/axilla: Normal chest wall appearance and motion. Nontender with no deformity. No lesions are appreciated. Cardiovascular: Regular rate and rhythm with a normal S1 and S2. No gallops, murmurs, or rubs. Normal PMI, no JVD. No pulse deficits. Respiratory: Lungs have equal breath sounds bilaterally, clear to auscultation and percussion. No rales, rhonchi or wheezes noted. No increased work of breathing, no retractions or nasal flaring. Abdomen/GI: Soft, non-tender, with normal bowel sounds. No distension or tympany. No guarding or rebound. No evidence of tenderness throughout. Skin: Warm, dry with normal turgor. Normal color with no rashes, no lesions, and no evidence of cellulitis. MS/ Extremity: Pulses equal, no cyanosis. Neurovascular intact. Full, normal range of motion. Neuro: Awake and alert, GCS 15, oriented to person, place, time, and situation. Cranial nerves II-XII grossly intact. Motor strength 5/5 in all extremities. Sensory grossly intact. Cerebellar exam normal. Normal gait. Vital Signs: 11:54 BP 177 / 65; Pulse 61; Resp 17; Temp 98; Pulse Ox 97% ; Weight 104.33 kg; Height 5 ft. jl7 3 in. (160.02 cm); Pain 0/10; 15:00 BP 144 / 49; Pulse 63; Resp 17; Pulse Ox 99% on R/A; hb 11:54 Body Mass Index 40.74 (104.33 kg, 160.02 cm) jl7 MDM: 13:44 Patient medically screened. jr8 14:33 The patient was given aspirin in the Emergency Department. Data reviewed: vital signs, [facility] nurses notes, lab test result(s), EKG, radiologic studies, plain films. Data interpreted: Pulse oximetry: on room air is 97 %. Interpretation: normal. Counseling: I had a detailed discussion with the patient and/or guardian regarding: the historical points, exam findings, and any diagnostic results supporting the discharge/admit diagnosis, lab results, radiology results, the need for further work-up and treatment in the hospital. 14:57 ED course: Discussed case with Dr. Howard given her story and the previous encounters jr8 she has had resulting in stenting or restenting. Dr. Howard is good with admitting problems and will consult cardiology.. 10/20 12:18 Order name: Basic Metabolic Panel [facility] 10/20 12:18 Order name: CBC with Diff; Complete Time: 13:[address] [facility] 10/20 12:18 Order name: LFT's; Complete Time: 13:[address] [facility] 10/20 12:18 Order name: Magnesium; Complete Time: 13:[address] [facility] 10/20 12:18 Order name: NT PRO-BNP; Complete Time: 13:[address] [facility] 10/20 12:18 Order name: PT-INR; Complete Time: 13:[address] [facility] 10/20 12:18 Order name: Troponin (emerg Dept Use Only); Complete Time: 13:[address] [facility] 10/20 12:18 Order name: Basic Metabolic Panel; Complete Time: 13:54 EDMN 10/20 16:00 Order name: COVID-19 : Document "Date of Symptom Onset" if Symptomatic. hb 10/20 17:58 Order name: SARS-COV-2 RT PCR; Complete Time: 18:24 EDMS 10/20 18:51 Order name: Troponin I; Complete Time: 06:11 EDMS 10/20 22:17 Order name: Glucose, Ancillary Testing; Complete Time: 06:11 EDMS 10/20 22:37 Order name: LDL, Direct; Complete Time: 06:11 EDMS 10/20 12:18 Order name: XRAY Chest (1 view); Complete Time: 13:54 jl7 10/20 22:40 Order name: Troponin I; Complete Time: 06:11 EDMS 10/20 23:16 Order name: Hemoglobin A1c; Complete Time: 06:11 EDMS 10/21 02:46 Order name: CBC with Automated Diff; Complete Time: 06:11 EDMS 10/21 03:09 Order name: Basic Metabolic Panel; Complete Time: 06:11 EDMS 10/21 04:02 Order name: CBC Smear Scan; Complete Time: 06:11 EDMS 10/21 07:45 Order name: D-Dimer; Complete Time: 08:18 EDMS 10/21 10:10 Order name: Glucose, Ancillary Testing; Complete Time: 10:28 EDMS 10/21 16:25 Order name: Glucose, Ancillary Testing; Complete Time: 16:41 EDMS 10/21 20:29 Order name: Glucose, Ancillary Testing EDMS 10/22 08:54 Order name: Glucose, Ancillary Testing EDMS 10/22 11:13 Order name: Glucose, Ancillary Testing EDMS 10/22 12:22 Order name: RAD EDMS 10/22 12:22 Order name: NM EDMS 10/20 12:18 Order name: EKG; Complete Time: 12:18 7 10/20 12:18 Order name: Cardiac monitoring; Complete Time: 14:48 7 10/20 12:18 Order name: EKG - Nurse/Tech; Complete Time: 12:18 jl7 10/20 12:18 Order name: IV Saline Lock; Complete Time: 14:48 7 10/20 12:18 Order name: Labs collected and sent; Complete Time: 14:48 7 10/20 12:18 Order name: O2 Per Protocol; Complete Time: 12:18 7 10/20 12:18 Order name: O2 Sat Monitoring; Complete Time: 12:18 7 10/20 16:01 Order name: Diet Regular; Complete Time: 16:01 hb Administered Medications: 14:48 Drug: Magnesium Sulfate 1 grams Route: IVPB; Infused Over: 1 hrs; Site: left hb antecubital; 22:01 Follow up: IV Status: Completed infusion bs2 15:40 Drug: Aspirin 325 mg Route: PO; 10/21 05:24 Follow up: Response: No adverse reaction bs2 10/20 15:40 Drug: Pepcid (famotidine) 20 mg Route: IVP; Site: left antecubital; 10/21 05:23 Follow up: Response: No adverse reaction bs2 Disposition: 10/23 07:32 Co-signature as Attending Physician, Paulina Hensley I agree with the assessment and plan sp3 of care. Disposition Summary: 10/20/20 15:01 Hospitalization Ordered Hospitalization Status: Observation jr8 Provider: Sahil Howard Condition: Stable jr8 Problem: new jr8 Symptoms: have improved jr8 Bed/Room Type: Standard [facility] Location: [facility] ER HOLD(10/20/20 16:05) Room Assignment: ERHOLD-(10/20/20 16:05) bd Diagnosis - Chest pain, unspecified jr8 Forms: - Medication Reconciliation Form jr8 - SBAR form jr8 Signatures: Dispatcher [employer] EDMS Lorrie Mayes bd Jean Pierre Parra PA PA jr8 Shanti Mason RN RN Libia Abdi RN RN jl7 Paulina Hensley sp3 Monika Marquez RN bs2 Corrections: (The following items were deleted from the chart) 10/20 16:05 15:01 Telemetry/MedSurg (observation) jr8 bd 16:05 15:01 jr8 bd 16:51 16:01 CORONAVIRUS ordered. EDMS EDMS
--- NOTE | 2020-10-20 15:01 | ER ---
Nurse's Notes [facility] Name: Fela Ayoub Age: 69 yrs Sex: Female : 1950 Arrival Date: 10/20/2020 Time: 10:47 Bed 16 Private MD: Sahil Howard V Diagnosis: Chest pain, unspecified Presentation: 10/20 10:50 Chief complaint: Patient states: Intermittent, non-radiating chest pain with shortness jl7 of breath, started at 1045, lasting 2-3 minutes, symptoms resolved, had a chemical stress test 1 week ago and was told everything is good. Coronavirus screen: Client denies travel out of the [place] in the last 14 days. At this time, the client does not indicate any symptoms associated with coronavirus-19. Ebola Screen: No symptoms or risks identified at this time. Initial Sepsis Screen: Does the patient meet any 2 criteria? No. Patient's initial sepsis screen is negative. Does the patient have a suspected source of infection? No. Patient's initial sepsis screen is negative. Risk Assessment: Do you want to hurt yourself or someone else? Patient reports no desire to harm self or others. Onset of symptoms was October 20, 2020 at 10:45. 11:54 Method Of Arrival: Ambulatory jl7 11:54 Acuity: ALE 2 jl7 Triage Assessment: 11:58 General: Appears in no apparent distress. uncomfortable, Behavior is calm, cooperative, jl7 appropriate for age. Pain: Denies pain. Complains of pain in mid-sternal area Pain does not radiate. Pain currently is 0 out of 10 on a pain scale. at worst was 10 out of 10 on a pain scale. Quality of pain is described as sharp, throbbing, Pain began suddenly, Is intermittent. Cardiovascular: Patient's skin is warm and dry. Respiratory: Derm: Skin is pink, warm \\T\\ dry. Historical: - Allergies: 11:58 Plavix; jl7 11:58 Iodine; jl7 - Home Meds: 11:58 hydrochlorothiazide 25 mg Oral tab 1 tab once daily [Active]; irbesartan 300 mg Oral jl7 tab 1 tab once daily [Active]; metoprolol tartrate 100 mg Oral tab 1 tab 3 times per day [Active]; pravastatin 40 mg Oral tab 1 tab once daily [Active]; basaglar kwik pen 6 BID [Active]; Radiation [Active]; - PMHx: 11:58 Diabetes - IDDM; High Cholesterol; Hypertension; squamous cell carcinoma; jl7 - PSHx: 12:01 Total abdominal hysterectomy; Cholecystectomy; section; Coronary artery bypass jl7 graft; cardiac stents; - Immunization history:: Adult Immunizations up to date, Client reports receiving the 2nd dose of the Covid vaccine, Moderna. - Social history:: Smoking status: Patient denies any tobacco usage or history of. Screenin:00 Abuse screen: Denies threats or abuse. Denies injuries from another. Nutritional hb screening: No deficits noted. Tuberculosis screening: No symptoms or risk factors identified. Fall Risk None identified. Assessment: 14:00 General: Appears in no apparent distress. Behavior is calm, cooperative. Pain: Pain hb currently is 4 out of 10 on a pain scale. Neuro: Level of Consciousness is awake, alert, obeys commands, Oriented to person, place, time, situation. Cardiovascular: Reports chest pain, Patient's skin is warm and dry. Respiratory: Respiratory effort is even, unlabored, Respiratory pattern is regular, symmetrical. GI: No signs and/or symptoms were reported involving the gastrointestinal system. : No signs and/or symptoms were reported regarding the genitourinary system. EENT: No signs and/or symptoms were reported regarding the EENT system. Derm: Skin is pink, warm \\T\\ dry. Musculoskeletal: No signs and/or symptoms reported regarding the musculoskeletal system. 15:00 Reassessment: Patient appears in no apparent distress at this time. Patient and/or hb family updated on plan of care and expected duration. Pain level reassessed. Patient is alert, oriented x 3, equal unlabored respirations, skin warm/dry/pink. 16:00 Reassessment: Patient appears in no apparent distress at this time. Patient and/or hb family updated on plan of care and expected duration. Pain level reassessed. Patient is alert, oriented x 3, equal unlabored respirations, skin warm/dry/pink. Vital Signs: 11:54 BP 177 / 65; Pulse 61; Resp 17; Temp 98; Pulse Ox 97% ; Weight 104.33 kg; Height 5 ft. jl7 3 in. (160.02 cm); Pain 0/10; 15:00 BP 144 / 49; Pulse 63; Resp 17; Pulse Ox 99% on R/A; hb 11:54 Body Mass Index 40.74 (104.33 kg, 160.02 cm) 7 ED Course: 10:47 Patient arrived in ED. am2 10:47 Sahil Howard MD is Private Physician. am2 10:55 Arm band placed on right wrist. EKG completed in triage. Results shown to . jl7 11:05 EKG done, by ED staff, reviewed by Jean Pierre BAJWA. 3 11:58 Triage completed. jl7 13:09 Initial lab(s) drawn, by nh, sent to lab. Inserted saline lock: 20 gauge in right kj1 antecubital area, using aseptic technique. Blood collected. 13:39 XRAY Chest (1 view) In Process Unspecified. EDMS 13:44 Jean Pierre Parra PA is PHCP. jr8 13:44 Paulina Hensley is Attending Physician. jr8 14:00 Shanti Mason, RN is Primary Nurse. hb 14:49 Inserted saline lock: 22 gauge in left antecubital area, using aseptic technique. hb 14:58 Sahil Howard MD is Hospitalizing Provider. jr8 15:00 Patient maintains SpO2 saturation greater than 95% on room air. hb 15:00 Patient has correct armband on for positive identification. Placed in gown. Bed in low hb position. Call light in reach. Side rails up X 1. court recording monitor on. Pulse ox on. NIBP on. 16:42 No provider procedures requiring assistance completed. Patient admitted, IV remains in hb place. 10/21 05:22 COVID-19 : Document "Date of Symptom Onset" if Symptomatic. Sent. bs2 Administered Medications: 10/20 14:48 Drug: Magnesium Sulfate 1 grams Route: IVPB; Infused Over: 1 hrs; Site: left hb antecubital; 22:01 Follow up: IV Status: Completed infusion bs2 15:40 Drug: Aspirin 325 mg Route: PO; 10/21 05:24 Follow up: Response: No adverse reaction bs2 10/20 15:40 Drug: Pepcid (famotidine) 20 mg Route: IVP; Site: left antecubital; 10/21 05:23 Follow up: Response: No adverse reaction bs2 Outcome: 10/20 15:01 Decision to Hospitalize by Provider. jr8 16:42 Admitted to ER Hold. Please see [facility] for further documentation. hb 16:42 Condition: stable 16:42 Instructed on the need for admit, Demonstrated understanding of instructions. 10/22 14:53 Patient left the ED. Signatures: Dispatcher [employer] EDAZ Zora Lin RN RN Jean Pierre Parra PA PA jr8 Shanti Mason RN RN Libia Abdi RN RN jl7 Kala Glaser Danyelle Herrera 3 Tammy Martínez [id number] Monika Marquez RN RN bs2
[2020-10-20] MEDS ORDERED: ASPIRIN 81 MG CHEWABLE TABLET ONE (16:17)
[2020-10-20] MEDS ORDERED: ACETAMINOPHEN 500 MG TAB PO PRN (17:36)
[2020-10-20] MEDS ORDERED: D50W 25 GM/50 ML SYRINGE IV PRN (17:36)
[2020-10-20] MEDS ORDERED: ONDANSETRON 4 MG/2 ML VIAL IV PRN (17:36)
[2020-10-20] MEDS ORDERED: GLUCAGON 1 MG/VIAL IM PRN (17:36)
[2020-10-20 17:43] VITALS: BMI 40.7
[2020-10-20] MEDS: INSULIN -REGULAR HUMAN 50 UNIT/0.5 ML ML SQ SCH (21:00)
--- NOTE | 2020-10-20 21:31 | P.HP ---
Certification for Inpatient Patient admitted to: Observation With expected LOS: <2 Midnights Practitioner: I am a practitioner with admitting privileges, knowledge of patient current condition, hospital course, and medical plan of care. Services: Services provided to patient in accordance with Admission requirements found in Title 42 Section 412.3 of the Code of Federal Regulations Patient History Date of Service: 10/20/20 Reason for admission: CHEST PAIN History of Present Illness: BAKARI IS A DIABETIC WITH CAD WHO JUST HAD A STRESS TEST A FEW WEEKS AGO THAT WAS NORMAL COMES WITH CHEST PAIN ON EXERSION AND IS HAVING MORE PAIN LASTING 5 MIN OR SO A FEW HOURS AFTER ADMISSION. Allergies clopidogrel [From Plavix] Allergy (Verified 03/20/19 15:24) Rash iodine Allergy (Verified 03/20/19 15:24) Rash Home medications list reviewed: Yes Home Medications: Amlodipine [Norvasc*] 10 mg PO DAILY 03/21/19 Aspirin 325 mg PO DAILY 03/21/19 Insulin Glargine,Hum.rec.anlog [Basaglar Kwikpen U-100] 60 unit SQ BID 03/21/19 Irbesartan [Avapro] 300 mg PO DAILY 03/21/19 Metformin ER [Glucophage ER*] 1,000 mg PO BID 03/21/19 Metoprolol Tartrate [Lopressor] 100 mg PO BID 03/21/19 hydroCHLOROthiazide [Hydrochlorothiazide] 1 tab PO BID 03/21/19 Atorvastatin Calcium [Lipitor] 80 mg PO DAILY #30 tablet 03/22/19 Prasugrel Hydrochloride [Effient] 10 mg PO DAILY #30 tab 03/22/19 - Past Medical/Surgical History Diabetic: Yes -: hypertension -: skin cancer -: diabetes -: dyslipidemia -: CAD -: 2 heart stents 2001 -: hysterectomy -: hemorrhoidectomy -: right breast tumor removal -: - Social History Smoking Status: Never smoker Alcohol use: No CD- Drugs: No Caffeine use: Yes Review of Systems 10-point ROS is otherwise unremarkable Physical Examination - Physical Exam General: Mild distress, Obese HEENT: Atraumatic, PERRLA, Mucous membr. moist/pink, EOMI, Sclerae nonicteric Neck: Supple, 2+ carotid pulse no bruit, No LAD, Without JVD or thyroid abnormality Respiratory: Clear to auscultation bilaterally, Normal air movement Cardiovascular: Regular rate/rhythm, Normal S1 S2 Gastrointestinal: Normal bowel sounds, No tenderness Musculoskeletal: No tenderness Integumentary: No rashes Neurological: Normal gait, Normal speech, Normal strength at 5/5 x4 extr, Normal tone, Normal affect Lymphatics: No axilla or inguinal lymphadenopathy - Studies Laboratory Data (last 24 hrs) 10/20/20 13:09: PT 10.0, INR 0.87 10/20/20 13:09: WBC 8.00, Hgb 11.8 L, Hct 35.8 L, Plt Count 344 10/20/20 13:09: Sodium 138, Potassium 4.1, BUN 24 H, Creatinine 0.70, Glucose 168 H, Magnesium 1.7 L, Total Bilirubin 0.5, AST 12 L, ALT 26, Alkaline Phosphatase 61 Assessment and Plan - Problems (Diagnosis) (1) Atypical chest pain Current Visit: Yes Status: Acute Plan: SO FAR CARDIAC ENZ ARE NG. START LOVENOX ASPIRIN CONSULT CARDIOLOGY. (2) Coronary artery disease due to type 2 diabetes mellitus Current Visit: Yes Status: Chronic Plan: SHE HAS BEEN GIVEN SAMPLES OF RYBELSUS LATELY. SHE ENDS UP IN ER AFTER FIRST VISIT AT OFFICE. SHE SAYS SHE HAS HAD STENTS EVEN AFTER NORMAL STRESS TEST. (3) HTN (hypertension) Current Visit: Yes Status: Chronic - Advance Directives Does patient have a Living Will: No Does patient have a Durable POA for Healthcare: No
[2020-10-20] MEDS ORDERED: ACETAMINOPHEN 500 MG TAB ONE (23:16)
[2020-10-21 02:46] LABS: Absolute Lymphocytes (CBC) 3.5 K/uL (0.7-4.9); Basophils % 1.3 % (0-1.3); Hematocrit 34.8 % (36.0-45.0); Lymphocytes % 34.4 % (15.3-44.8); MPV 8.3 fL (7.6-11.3); RBC Red Blood Cell Count 4.16 M/uL (3.86-4.86)
[2020-10-21 02:57] LABS: BUN Blood Urea Nitrogen 20 mg/dL (7-18); Bicarbonate 31 mmol/L (21-32); Glucose Level 146 mg/dL (74-106); Sodium Level 139 mmol/L (136-145)
[2020-10-21 04:01] LABS: Blood Morphology Comment NOT SEEN (NOT SEEN); Platelet Estimate ADEQ; White Blood Cell Scan OK (OK)
[2020-10-21] MEDS: INSULIN -REGULAR HUMAN 50 UNIT/0.5 ML ML SQ SCH ×4 (07:30→20:27)
[2020-10-21] MEDS: METFORMIN ER 500 MG TAB PO SCH ×2 (08:00→17:00)
[2020-10-21] MEDS ORDERED: AMLODIPINE 10 MG TAB ONE (08:03)
[2020-10-21] MEDS ORDERED: INSULIN GLARGINE 100 UNITS/ML SQ ONE ×2 (08:03→20:31)
[2020-10-21] MEDS ORDERED: METOPROLOL TAR 50 MG TAB ONE ×2 (08:03→20:31)
[2020-10-21] MEDS ORDERED: PRASUGREL (EFFIENT) 10 MG TAB ONE (08:04)
[2020-10-21] MEDS ORDERED: hydroCHLOROthiazide 25 MG TAB ONE ×2 (08:04→16:54)
[2020-10-21] MEDS ORDERED: ENOXAPARIN 100 MG/ML SYR SQ ONE ×2 (08:04→20:31)
[2020-10-21] MEDS ORDERED: METFORMIN HCL 500 MG TAB ONE (08:04)
[2020-10-21] MEDS: hydroCHLOROthiazide 25 MG TAB PO SCH ×2 (09:00→17:00)
[2020-10-21] MEDS: METOPROLOL TAR 50 MG TAB PO SCH ×2 (09:00→20:26)
[2020-10-21] MEDS: ATORVASTATIN 20 MG TAB PO SCH (09:00)
[2020-10-21] MEDS ORDERED: IRBESARTAN 150 MG TAB PO SCH (09:00)
[2020-10-21] MEDS: INSULIN GLARGINE 100 UNITS/ML SQ SCH ×2 (09:00→20:26)
[2020-10-21] MEDS: ENOXAPARIN 100 MG/ML SYR SQ SCH ×2 (09:00→20:26)
[2020-10-21] MEDS ORDERED: ASPIRIN 325 MG TAB PO SCH ×2 (09:00)
[2020-10-21] MEDS: AMLODIPINE 10 MG TAB PO SCH ×2 (09:00)
[2020-10-21] MEDS: PRASUGREL (EFFIENT) 10 MG TAB PO SCH (09:00)
--- NOTE | 2020-10-21 16:29 | EKG ---
Test Date: 2020-10-20 Test Time: 11:00:11 Special Education Science Teacher: MONA MEASUREMENT RESULTS: Intervals: Rate: 69 SC: 270 QRSD: 94 QT: 410 QTc: 439 [place]: P: 62 SC: 270 QRS: 21 T: 7 INTERPRETIVE STATEMENTS: Sinus rhythm with marked sinus arrhythmia with 1st degree AV block Nonspecific ST abnormality Abnormal ECG Compared to ECG 03/20/2019 15:33:56 No significant changes Electronically Signed On 10-21-20 16:24:25 CDT by Reginaldo Jurado
[2020-10-21] MEDS ORDERED: INSULIN -REGULAR HUMAN 50 UNIT/0.5 ML ML ONE ×2 (16:52→20:36)
--- NOTE | 2020-10-21 20:12 | P.PN ---
Subjective Date of Service: 10/21/20 Chief Complaint: CHEST PAIN Subjective: No new changes SHE CONTINUES TO HAVE MILD PAIN. NO DYSPNEA, NO FEVER. I CALLED DR. RING. HE WILL DO CATH IN AM. Review of Systems 10-point ROS is otherwise unremarkable Physical Examination - Vital Signs Blood Pressure: 144/54 Pulse: 62 Respirations: 19 Pulse Ox (%): 99 - Physical Exam General: Oriented x3, Mild distress, Obese HEENT: Atraumatic, PERRLA, EOMI Neck: Supple, JVD not distended Respiratory: Clear to auscultation bilaterally, Normal air movement Cardiovascular: Regular rate/rhythm, Normal S1 S2 Gastrointestinal: Normal bowel sounds, No tenderness Musculoskeletal: No tenderness Integumentary: No rashes Neurological: Normal speech, Normal tone, Normal affect Lymphatics: No axilla or inguinal lymphadenopathy - Studies Medications List Reviewed: Yes Assessment And Plan - Current Problems (Diagnosis) (1) Atypical chest pain Current Visit: Yes Status: Acute Plan: SO FAR CARDIAC ENZ ARE NG. START LOVENOX ASPIRIN CONSULT CARDIOLOGY. (2) Coronary artery disease due to type 2 diabetes mellitus Current Visit: Yes Status: Chronic Plan: SHE HAS BEEN GIVEN SAMPLES OF RYBELSUS LATELY. SHE ENDS UP IN ER AFTER FIRST VISIT AT OFFICE. SHE SAYS SHE HAS HAD STENTS EVEN AFTER NORMAL STRESS TEST. (3) HTN (hypertension) Current Visit: Yes Status: Chronic (4) Hypoxia Current Visit: Yes Status: Acute Plan: MILD D DIMER IS IN 500S. RISK PROFILE, MODERATE VQ SCAN IN AM.
[2020-10-21] MEDS ORDERED: ACETAMINOPHEN 500 MG TAB ONE (21:59)
[2020-10-22] MEDS: INSULIN -REGULAR HUMAN 50 UNIT/0.5 ML ML SQ SCH ×2 (07:30→11:15)
[2020-10-22] MEDS: METFORMIN ER 500 MG TAB PO SCH (08:00)
[2020-10-22] MEDS ORDERED: NA CHLORIDE 0.9% 500 ML ONE (08:35)
[2020-10-22] MEDS ORDERED: MIDAZOLAM HCL 2 MG/2 ML INJ ONE ×2 (08:55→09:36)
[2020-10-22] MEDS ORDERED: FENTANYL CITR 100 MCG/2 ML ONE (08:56)
[2020-10-22] MEDS ORDERED: HEPA 1000U/500MLS 1,000 UNIT/500 ML BAG IV ONE (08:56)
[2020-10-22] MEDS ORDERED: NA CHLORIDE 0.9% 0 ML ONE (08:56)
[2020-10-22] MEDS ORDERED: LIDOCAINE 1% 20 ML MDV ONE (08:56)
[2020-10-22] MEDS ORDERED: ATROPINE SULF 1 MG/10 ML SYR IV ONE (08:56)
[2020-10-22] MEDS: METOPROLOL TAR 50 MG TAB PO SCH (09:00)
[2020-10-22] MEDS: PRASUGREL (EFFIENT) 10 MG TAB PO SCH (09:00)
[2020-10-22] MEDS: hydroCHLOROthiazide 25 MG TAB PO SCH (09:00)
[2020-10-22] MEDS: AMLODIPINE 10 MG TAB PO SCH (09:00)
[2020-10-22] MEDS ORDERED: METHYLPREDNISOLONE 125 MG INJ ONE (09:33)
[2020-10-22] MEDS ORDERED: HYDRALAZINE HCL 20 MG/ML VIAL ONE (09:39)
[2020-10-22 10:54] VITALS: BP 141/68
[2020-10-22 10:56] VITALS: TEMP 98.7; O2SAT 99
--- NOTE | 2020-10-22 11:19 | OP ---
Date of Procedure: 10/22/2020 Surgeon: Reginaldo Jurado MD The patient admitted to the hospital on 10/20/2020, brought to the cardiac cath tech on 10/22/2020 because of history of CAD, and unstable angina. Procedure In Detail: She was prepped and draped in routine sterile fashion. Given Versed and fentan yl for sedation. She was also given IV hydralazine 10 mg because of hypertension. She was given Cassie u-Medrol IV because of possible allergy to Solu-Medrol. She had a 6-Slovak sheath introduced in the right common femoral artery successfully using the Seldinger technique. Angiography there was normal . Angio-Seal was used to close the case. Gerson catheter left and right were used to do the diagno stic catheterization. The JR4 cannulated the right main. RCA was normal. She had a 70% to 80% very distal PDA stenosis. A small vessel 1 mm in size. Diffuse plaquing in the posterolateral wall. Sh e was codominant. The JL-4 cannulated the left main. The left main was normal. Circumflex was norm al with a patent proximal circumflex stent. Ramus was patent with a mid stent. LAD proximal had a p atent stent. She had a 90% diagonal stenosis, the diagonal came across where the stent is. There we re no complications. Blood Loss: 5 mL. Postoperative Diagnosis: Moderate to severe coronary artery disease, hypertension. Plan: Plan is for medical therapy. I would consider putting her on Ranexa 500 mg b.i.d. Total cons cious sedation was 45 minutes. Dock Manager was myself and assistant professor of music was Mr. Mohan Matt. I will discuss the case with the patient, with Dr. Howard and with her family. I think there is a V/Q scan ordered to rule out pulmonary embolus by Dr. Howard. After that, she can probably go home as far as I am concern ed. JOHANN/KENIA Voice ID: [id number] Report ID: [id number]
--- NOTE | 2020-10-22 12:21 | RAD REPORT ---
EXAM DESCRIPTION: Troi Single View10/22/2020 12:02 pm CLINICAL HISTORY: Chest pain COMPARISON: October 20, 2020 FINDINGS: The lungs appear clear of acute infiltrate. The heart is normal size IMPRESSION: No acute abnormalities displayed
--- NOTE | 2020-10-22 12:22 | RAD REPORT ---
EXAM DESCRIPTION: NM - Vent Perfusion VQ Scan - 10/22/2020 12:11 pm CLINICAL HISTORY: Chest pain COMPARISON: October 22, 2020 chest x-ray TECHNIQUE: 17.4 Mci Xe133 was administered by inhalation. First breath, equilibrium, and washout images of the lungs obtained 7.3 millicuries Technetium-99 MAA was administered intravenously. Anterior, posterior, lateral and ob lique views of the lungs were taken. FINDINGS: The lungs demonstrate relatively homogeneous radiotracer activity on ventilation and perfu arvin sequences. No mismatched segmental or lobar perfusion defects are seen. IMPRESSION: No evidence of a pulmonary embolus
--- NOTE | 2020-10-22 12:34 | CON ---
Date of Consultation: 10/21/2020 Reason For Consultation: Shortness of breath, chest pain, unstable angina. History Of Present Illness: Ms. Ayoub is a 69-year-old woman known to me from previous office vis its and admissions. She has a history of coronary artery disease, status post multiple stents in the past in the circumflex, LAD and ramus. Had come into my office with chest pain and hypertension. R ecently, I increased her beta-cullen. She had a stress test that was negative, but continued to hav e chest pain, shortness of breath, hypoxia, and was admitted to the hospital for further evaluation a nd treatment. She denied PND, orthopnea, pedal edema, palpitations, or syncope. She was hypoxic whe n she came in. She was hypertensive when she came in at 177/65, very anxious. Allergies: IODINE AND PLAVIX. Review of Systems: Negative. Social History: Negative. Family History: Negative. Past Medical History: Include diabetes, hypertension, cholesterol, obesity. She has had a total hys terectomy, cholecystectomy, , cardiac stents. Medicines: At home include hydrochlorothiazide, irbesartan, pravastatin, metoprolol and insulin. Physical Examination: Vital Signs: Blood pressure is 177/65, pulse is 61, O2 saturation was 97% when I saw her on 2 L of n pallavi cannula, but she was hypoxic entirely her route. HEENT: Negative. Neck: Supple with no bruit. Chest: Clear to auscultation and percussion. Cardiac: Revealed a regular rhythm and rate. No murmurs, gallops, or rubs. Abdomen: Benign. Extremities: Revealed no clubbing, cyanosis, or edema. Diagnostic Data: She had a chest x-ray that was normal. Her EKG shows sinus rhythm with first-degre e AV block. Her laboratory evaluation are positive for a D-dimer of 548. Her glucose was 282. Impression And Plan: Symptoms atypical, but still worrisome considering her history of coronary maricruz ry disease. She has a normal EKG, normal troponin, normal BNP. She has elevated D-dimer. Dr. Howard plan to do a V/Q scan on her. She has allergies to iodine and Plavix and I will keep that in mind. I think heart catheterization is indicated to redefine her coronary anatomy. Her last catheterizati on was in March of 2019. The patient understands the risk and the benefits of the procedure. She agreed to proceed. The case was discussed with Dr. Howard and the family. I agree with her present r jose guadalupe. She is on Effient right now, metformin, irbesartan, beta cullen, Lovenox, and hydrochloroth iazide. We will hold the metformin for 48 hours after the catheterization. Her blood pressure is po cami controlled and we may have to make some adjustment to her blood pressure regimen down the road. Her diabetes is fairly well controlled. She has dyslipidemia for which she takes Pravachol and will continue that for now. JOHANN/KENIA Voice ID: [id number] Report ID: [id number]
[2020-10-22] MEDS: ATORVASTATIN 20 MG TAB PO SCH (12:47)
[2020-10-22] MEDS ORDERED: ATORVASTATIN 20 MG TAB ONE (12:57)
[2020-10-22] MEDS ORDERED: METOPROLOL TAR 50 MG TAB ONE (12:58)
[2020-10-22] MEDS ORDERED: PRASUGREL (EFFIENT) 10 MG TAB ONE (12:58)
[2020-10-22] MEDS ORDERED: hydroCHLOROthiazide 25 MG TAB ONE (12:58)
[2020-10-22] MEDS ORDERED: AMLODIPINE 10 MG TAB ONE (12:58)
== END 2020-10-22 14:48 | disposition home or self-care (01) | DRG 287 ==
LOC: ER 10:46 → ERHOLD 16:33 → OBSVTOIN 10-22 07:42
PROVIDERS: ADMIT Internal Medicine; ATTEND Internal Medicine
PROC: B201YZZ Plain Radiography of Multiple Coronary Arteries using Other Contrast (ICD-10-PCS; principal; 2020-10-22)
DX: I25.110 Atherosclerotic heart disease of native coronary artery with unstable angina pectoris (principal); Z68.41 Body mass index [BMI] 40.0-44.9, adult; E11.9 Type 2 diabetes mellitus without complications; I10 Essential (primary) hypertension; E66.9 Obesity, unspecified; R09.02 Hypoxemia; Z95.5 Presence of coronary angioplasty implant and graft; Z20.822 Contact with and (suspected) exposure to COVID-19
CPT/HCPCS: 36415; 71045; 78582; 80048; 80076; 82947; 83036; 83735; 83880; 84484; 85025; 85379; 85610; 93005; 93454; 96365; 96366; 96375; 99285; A9540; A9558; C1760; C1893; G0378; J0360; J0583; J1644; J1650; J1815; J2250; J2930; J3010; J3475; J7040; U0003

== ENCOUNTER 2021-01-03 15:56 | Emergency (ER) | payer OTHER ==
--- NOTE | 2021-01-03 17:31 | RAD REPORT ---
EXAM DESCRIPTION: RAD - Humerus Right - 01/03/2021 5:03 pm CLINICAL HISTORY: fall;Pain COMPARISON: No comparisons FINDINGS: Proximal humerus fracture is present at surgical neck with no significant distraction or a ngulation deformity. There is no dislocation or periosteal reaction noted. No pathologic changes seen . Mild degenerative changes present at the acromion and greater tuberosity. Acromial humeral joint sp pierre is normal with no abnormal soft tissue calcifications. Remainder of the humerus is intact. Partially imaged elbow joint is unremarkable. IMPRESSION: Proximal right humerus fracture as detailed.
--- NOTE | 2021-01-03 17:34 | RAD REPORT ---
EXAM DESCRIPTION: RAD - Clavicle Right - 01/03/2021 5:03 pm CLINICAL HISTORY: PAIN COMPARISON: No comparisons FINDINGS: No fracture is identified. AC joint and SC joint show no acute finding. Mild degenerative changes are present at the AC joint without inferiorly directed spurring. Acromial humeral joint spac e is normal with no soft tissue calcification. Proximal right humerus fracture is present at the surgical neck. This is further detailed on separate right humerus report. IMPRESSION: Negative right clavicle examination.
--- NOTE | 2021-01-03 17:43 | RAD REPORT ---
EXAM DESCRIPTION: CT - Head C Spine Cap Wo Con - 01/03/2021 5:23 pm CLINICAL HISTORY: fall;Pain COMPARISON: No comparisons TECHNIQUE: Axial [address] head images were obtained. Axial [address] cervical spine images were obtain ed with sagittal and coronal reconstruction images reviewed. Axial 5 mm images of the chest, abdomen and pelvis were obtained. All CT scans are performed using dose optimization technique as appropriate and may include automated exposure control or mA/KV adjustment according to patient size. FINDINGS: No intracranial hemorrhage, mass or edema. No midline shift or abnormal fluid collection. Mild atrophy changes are present with ventricles in proportion. Chronic ischemic changes identifiable in the cerebral white matter and in the brainstem. Focal infarction changes are present in the right periventricular white matter near the frontal horn and in the deep posterior left frontal lobe periv entricular white matter. Mastoid air cells and paranasal sinuses are clear. No skull fracture. Cervical bodies are normal in height and alignment. No fracture or acute bone finding.C4-5 and C5-6 s ignificant disc space narrowing. Endplate spurring and uncovertebral joint hypertrophy changes cause significant bilateral foraminal stenosis at C4-5 and more mild foraminal stenosis at C6-7.No preverte bral soft tissue thickening or paraspinal mass.Central canal detail is inherently limited on CT imagi ng. CT chest shows no pneumothorax, pulmonary contusion or pleural fluid collection. 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 This is a normal anatomic variant. Dense aortic calcifications. Calcified lala and mediastin al calcifications are present. No mediastinal hematoma and the aorta and pulmonary arteries are unrem arkable. No chest will mass or abnormal axillary finding. No displaced rib fracture or other signific ant bony finding. CT abdomen and pelvis show no injury to solid abdominal viscera. Cholecystectomy clips are present. N o biliary tree dilatation. 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 Uterus is absent. Ovaries are absent or atrophic. No bowel injury or significant finding. No free air, free fl uid or abnormal stranding. No hernia, mass or bulky lymphadenopathy. No urinary bladder abnormality. Fat only left inguinal hernia is present. Disc and bone degenerative changes are present. Facet joint degenerative changes are present in the l ower lumbar spine. Thoracic and lumbar vertebrae maintain normal height. Bridging ossification spans multiple levels of the thoracic spine. IMPRESSION: No acute CT Head finding. Atrophy, chronic ischemic change and old infarctions are ident ifiable. Cervical spine degenerative changes are present acute finding. No acute traumatic injuries to the chest. Nondisplaced right humerus surgical neck fracture present. No acute traumatic injury to the abdomen or pelvis.
[2021-01-03] MEDS ORDERED: MORPHINE 4 MG/ML SYR ONE ×2 (17:58→20:12)
[2021-01-03] MEDS ORDERED: ONDANSETRON 4 MG/2 ML VIAL ONE (17:58)
--- NOTE | 2021-01-03 18:07 | ER ---
Nurse's Notes [facility] Name: Fela Ayoub Age: 70 yrs Sex: Female : 1950 Arrival Date: 01/03/2021 Time: 15:57 Bed 3 Private MD: Diagnosis: 2-part nondisplaced fracture of surgical neck of right humerus, initial encounter for closed fracture;Fall (on) (from) other stairs and steps, initial encounter Presentation: 01/03 16:15 Chief complaint: Patient states: was standing on a step stool, it slipped out from iw under her, fell in front of her stove, hit chin, cheek on stove, fell onto tile floor on right side, pain to right shoulder, back, neck , had a hard time getting off the floor, denies LOC , fell from approx 1 foot. Care prior to arrival: None. Mechanism of Injury: Fall step stool. Trauma event details: Injury occurred in the [facility]. 16:15 Acuity: ALE 3 iw 16:15 Method Of Arrival: Wheelchair iw 16:18 Coronavirus screen: At this time, the client does not indicate any symptoms associated iw with coronavirus-19. Ebola Screen: Patient negative for fever greater than or equal to 101.5 degrees Fahrenheit, and additional compatible Ebola Virus Disease symptoms Patient denies exposure to infectious person. Patient denies travel to an Ebola-affected area in the 21 days before illness onset. No symptoms or risks identified at this time. Initial Sepsis Screen: Does the patient meet any 2 criteria? No. Patient's initial sepsis screen is negative. Does the patient have a suspected source of infection? No. Patient's initial sepsis screen is negative. Risk Assessment: Do you want to hurt yourself or someone else? Patient reports no desire to harm self or others. Onset of symptoms was January 03, 2021. Trauma Activation: Not Applicable Physician: ED Physician; Name: ; Notified At: ; Arrived At: Physician: General Surgeon; Name: ; Notified At: ; Arrived At: Physician: Radiology; Name: ; Notified At: ; Arrived At: Physician: Respiratory; Name: ; Notified At: ; Arrived At: Physician: Lab; Name: ; Notified At: ; Arrived At: Historical: - Allergies: 16:19 Iodine; iw 16:19 Plavix; iw 16:19 Hydrocodone-Acetaminophen; hallucination; iw - Home Meds: 16:19 amlodipine oral [Active]; basaglar kwik pen 6 BID [Active]; hydrochlorothiazide 25 mg iw Oral tab 1 tab once daily [Active]; irbesartan 300 mg Oral tab 1 tab once daily [Active]; metoprolol tartrate 100 mg Oral tab 1 tab 3 times per day [Active]; ozempic 0.25 weekly [Active]; pravastatin 40 mg Oral tab 1 tab once daily [Active]; radiation [Active]; - PMHx: 17:00 Diabetes - IDDM; High Cholesterol; Hypertension; squamous cell carcinoma; aa5 - PSHx: 16:19 cardiac stents; section; Cholecystectomy; Coronary artery bypass graft; Total iw abdominal hysterectomy; - Immunization history:: Adult Immunizations unknown, . - Social history:: Smoking status: unknown. Screenin:00 Abuse screen: Denies threats or abuse. Nutritional screening: No deficits noted. aa5 Tuberculosis screening: No symptoms or risk factors identified. Fall Risk None identified. Assessment: 17:00 General: Appears uncomfortable, Behavior is calm, cooperative. Pain: Complains of pain aa5 in right shoulder, back, and neck Pain currently is 10 out of 10 on a pain scale. Quality of pain is described as sharp, shooting, Pain began just TECHNOLOGY INTERN post fall Is continuous, Aggravated by repositioning, Noted to be resistant to movement. Neuro: Level of Consciousness is awake, alert, obeys commands, Oriented to person, place, time, situation. Cardiovascular: Heart tones S1 S2 present Rhythm is regular. Respiratory: Airway is patent Respiratory effort is even, unlabored, Respiratory pattern is regular, symmetrical. GI: Abdomen is round non-distended. : No signs and/or symptoms were reported regarding the genitourinary system. EENT: No signs and/or symptoms were reported regarding the EENT system. Derm: Skin is pink, warm \T\ dry. Musculoskeletal: Reports pain in right shoulder. 17:00 Reassessment: C-collar noted, it was applied by PA. aa5 17:00 Reassessment: x-ray at bedside . aa5 17:09 Reassessment: Pt to CT via stretcher. aa5 17:55 Reassessment: C-collar removed by PA. PA at bedside updating pt about results and POC. aa5 18:00 Reassessment: Patient is alert, oriented x 3, equal unlabored respirations, skin aa5 warm/dry/pink. 18:59 Reassessment: D/C ON HOLD PENDING RETURN OF FAMILY FOR TRANSPORT. bp Vital Signs: 16:18 BP 180 / 61; Pulse 69; Resp 16; Pulse Ox 98% on R/A; Weight 104.33 kg; Height 5 ft. 3 iw in. (160.02 cm); Pain 10/10; 18:00 BP 185 / 67; Pulse 63; Resp 16 S; Pulse Ox 96% on R/A; aa5 16:18 Body Mass Index 40.74 (104.33 kg, 160.02 cm) iw ED Course: 15:57 Patient arrived in ED. as 16:18 Triage completed. iw 16:24 Ladarius Wells PA is PHCP. cp 16:24 Andrey Esqueda MD is Attending Physician. cp 16:59 Kerrie Holland, RN is Primary Nurse. aa5 17:00 Patient has correct armband on for positive identification. Bed in low position. Call aa5 light in reach. Side rails up X2. Adult w/ patient. Pulse ox on. NIBP on. 17:00 Arm band placed on. aa5 17:03 XRAY Humerus RIGHT In Process Unspecified. EDMS 17:03 XRAY Clavicle RIGHT In Process Unspecified. EDMS 17:05 Inserted saline lock: 20 gauge in left antecubital area, using aseptic technique. aa5 17:23 CT Traumagram (Head C Spine CAP wo con) In Process Unspecified. EDMS 18:05 Kavon San MD is Referral Physician. cp 19:30 Primary Nurse role handed off by Kerrie Holland, RN mw2 19:34 Monika Marquez, [place] is Primary Nurse. bs2 19:34 No provider procedures requiring assistance completed. IV discontinued, intact, bs2 bleeding controlled, No redness/swelling at site. Administered Medications: 17:05 Drug: Zofran (Ondansetron) 4 mg Route: IVP; Site: left antecubital; aa5 17:09 Follow up: Response: No adverse reaction aa5 17:07 Drug: morphine 4 mg Route: IVP; Site: left antecubital; aa5 17:09 Follow up: Response: No adverse reaction aa5 19:05 Drug: morphine 4 mg Route: IVP; Site: left antecubital; bs2 19:34 Follow up: Response: No adverse reaction bs2 Outcome: 18:07 Discharge ordered by . cp 19:34 Discharged to home ambulatory, via wheelchair, with family. bs2 19:34 Condition: improved 19:34 Discharge instructions given to patient, family, Instructed on discharge instructions, follow up and referral plans. medication usage, Demonstrated understanding of instructions, follow-up care, medications, Prescriptions given X 1. 19:35 Patient left the ED. bs2 Signatures: Dispatcher [employer] EDMS Vivienne Sneed as Geovanna Peterson RN RN iw Kerrie Holland RN RN aa5 Ladarius Wells PA PA cp Peltier, Brian, RN RN bp Roselia Mijares 2 Monika Marquez RN RN bs2 Corrections: (The following items were deleted from the chart) 16:18 16:15 Chief complaint: Patient states: was standing on a step stool, it slipped out iw from under her, fell in front of her stove, hit chin, cheek on stove, fell onto tile floor on right side, pain to right shoulder, back, neck , had a hard time getting off the floor, denies LOC iw 19:22 18:59 Patient left the ED. iw aa5
--- NOTE | 2021-01-03 18:07 | EDPHYS ---
Physician Documentation [facility] Name: Fela Ayoub Age: 70 yrs Sex: Female : 1950 Arrival Date: 01/03/2021 Time: 15:57 Bed 3 Private MD: ED Physician Andrey Esqueda HPI: 01/03 16:50 This 70 yrs old Female presents to ER via Wheelchair with complaints of Fall cp Injury, Shoulder Pain, Back Pain, Neck Pain, <24hrs Old. 16:50 Patient reports she was standing on a step stool in the kitchen, when she lost her cp balance fell forward striking the stove and then falling to the floor. Patient denies any loss of consciousness but comes in complaining of pain to right shoulder right side of chest. Patient reports step stool was approximately 1 foot off the ground. 16:50 Onset: The symptoms/episode began/occurred just prior to arrival. cp Historical: - Allergies: 16:19 Iodine; iw 16:19 Plavix; iw 16:19 Hydrocodone-Acetaminophen; hallucination; iw - Home Meds: 16:19 amlodipine oral [Active]; basaglar kwik pen 6 BID [Active]; hydrochlorothiazide 25 mg iw Oral tab 1 tab once daily [Active]; irbesartan 300 mg Oral tab 1 tab once daily [Active]; metoprolol tartrate 100 mg Oral tab 1 tab 3 times per day [Active]; ozempic 0.25 weekly [Active]; pravastatin 40 mg Oral tab 1 tab once daily [Active]; radiation [Active]; - PMHx: 17:00 Diabetes - IDDM; High Cholesterol; Hypertension; squamous cell carcinoma; aa5 - PSHx: 16:19 cardiac stents; section; Cholecystectomy; Coronary artery bypass graft; Total iw abdominal hysterectomy; - Immunization history:: Adult Immunizations unknown, . - Social history:: Smoking status: unknown. ROS: 17:00 MS/extremity: Positive for injury or acute deformity, decreased range of motion, pain, cp of the right shoulder, Negative for paresthesias. 17:00 Constitutional: Negative for body aches, chills, fever, poor PO intake. cp 17:00 Neck: Positive for pain with movement, pain at rest. 17:00 Cardiovascular: Negative for chest pain, palpitations. 17:00 Back: Positive for pain at rest, pain with movement. 17:00 Neuro: Negative for altered mental status, loss of consciousness, syncope. 17:00 All other systems are negative. cp Exam: 18:00 Head/Face: Normocephalic, atraumatic. cp 18:00 Constitutional: The patient appears in no acute distress, alert, awake, non-diaphoretic, non-toxic, well developed, well nourished, obese, uncomfortable. 18:00 Eyes: Periorbital structures: appear normal, Conjunctiva: normal, no exudate, no injection, Sclera: no appreciated abnormality, Lids and lashes: appear normal, bilaterally. 18:00 ENT: External ear(s): are unremarkable, Nose: is normal, Mouth: Lips: moist, Oral mucosa: moist, Posterior pharynx: Airway: no evidence of obstruction, patent. 18:00 Neck: External neck: tenderness, that is mild, right lateral neck, C-spine: C-collar placed in ED. 18:00 Chest/axilla: Inspection: normal, Palpation: crepitus, is not appreciated, tenderness, that is moderate, of the right lateral posterior chest and right lateral anterior chest. 18:00 Cardiovascular: Rate: normal, Rhythm: regular, Edema: is not appreciated, JVD: is not appreciated. 18:00 Respiratory: the patient does not display signs of respiratory distress, Respirations: normal, no use of accessory muscles, no retractions, labored breathing, is not present, Breath sounds: are clear throughout, no decreased breath sounds, no stridor, no wheezing. 18:00 Abdomen/GI: Inspection: obese Bowel sounds: active, all quadrants, Palpation: soft, in all quadrants, mild abdominal tenderness, in the posterior aspect of right lateral abdomen and anterior aspect of right lateral abdomen, rebound tenderness, is not appreciated, involuntary guarding, is not appreciated. 18:00 Back: pain, that is mild, of the thoracic area, Straight leg raises: of both lower extremities does not illicit pain. 18:00 Musculoskeletal/extremity: Extremities: grossly normal except: noted in the right shoulder: decreased ROM, pain, tenderness, ROM: limited passive range of motion, in the right shoulder, limited passive range of motion due to pain, in the right shoulder, Pulses: noted to be 2+ in the right radial artery and left radial artery. 18:00 Neuro: Orientation: to person, place \T\ time. Mentation: is normal, Motor: moves all fours, strength is normal, Sensation: no obvious gross deficits. Vital Signs: 16:18 BP 180 / 61; Pulse 69; Resp 16; Pulse Ox 98% on R/A; Weight 104.33 kg; Height 5 ft. 3 iw in. (160.02 cm); Pain 10/10; 18:00 BP 185 / 67; Pulse 63; Resp 16 S; Pulse Ox 96% on R/A; aa5 16:18 Body Mass Index 40.74 (104.33 kg, 160.02 cm) iw MDM: 16:44 Patient medically screened. cp 18:00 Differential diagnosis: closed head injury, contusion, fracture, multiple trauma. cp 18:06 Data reviewed: vital signs, nurses notes, radiologic studies, CT scan, plain films. cp 18:06 Test interpretation: by ED physician or midlevel provider: plain radiologic studies. cp Counseling: I had a detailed discussion with the patient and/or guardian regarding: the historical points, exam findings, and any diagnostic results supporting the discharge/admit diagnosis, radiology results, the need for outpatient follow up, for definitive care, a orthopedic surgeon, to return to the emergency department if symptoms worsen or persist or if there are any questions or concerns that arise at home. Response to treatment: VSS. Pain improved. Shoulder placed in immobilizer. Will discharge to home for continued monitoring. 01/03 16:45 Order name: XRAY Humerus RIGHT; Complete Time: 18:05 cp 01/03 16:45 Order name: XRAY Clavicle RIGHT; Complete Time: 18:05 cp 01/03 17:05 Order name: CT Traumagram (Head C Spine CAP wo con); Complete Time: 18:05 cp 01/03 16:46 Order name: IV; Complete Time: 17:09 cp 01/03 18:03 Order name: Shoulder Immobilizer; Complete Time: 18:56 cp Administered Medications: 17:05 Drug: Zofran (Ondansetron) 4 mg Route: IVP; Site: left antecubital; aa5 17:09 Follow up: Response: No adverse reaction aa5 17:07 Drug: morphine 4 mg Route: IVP; Site: left antecubital; aa5 17:09 Follow up: Response: No adverse reaction aa5 19:05 Drug: morphine 4 mg Route: IVP; Site: left antecubital; bs2 19:34 Follow up: Response: No adverse reaction bs2 Disposition: 18:20 Chart complete. cp 01/04 06:32 Co-signature as Attending Physician, Andrey Esqueda MD I agree with the assessment and kdr plan of care. Disposition Summary: 01/03/21 18:07 Discharge Ordered Location: Home cp Problem: new cp Symptoms: have improved cp Condition: Stable cp Diagnosis - 2-part nondisplaced fracture of surgical neck of right humerus, initial encounter cp for closed fracture - Fall (on) (from) other stairs and steps, initial encounter cp Followup: cp - With: Kavon San MD - When: 2 - 3 days - Reason: right proximal humerus fracture Discharge Instructions: - Discharge Summary Sheet cp - Fall Prevention in the Home, Adult cp - Humerus Fracture Treated With Immobilization cp Forms: - Medication Reconciliation Form cp - Thank You Letter cp - Antibiotic Education cp - Prescription Opioid Use cp Prescriptions: - Naprosyn 500 mg Oral Tablet - take 1 tablet by ORAL route 2 times per day take with food; 20 tablet; Refills: cp 0, Product Selection Permitted - Ultracet 37.5-325 mg Oral Tablet - take 1 tablet by ORAL route every 6 hours - for up to 5 days; do not exceed 8 cp tablets per day.; 20 tablet; Refills: 0, Product Selection Permitted Signatures: Dispatcher [employer] EDAndrey Stokes MD MD [facility] Geovanna Peterson RN RN Kerrie Holland RN RN aa5 Ladarius Wells PA PA cp Monika Marquez RN RN bs2 Corrections: (The following items were deleted from the chart) 01/03 17:10 16:46 Head C Spine MPR Wo Con+CT.RAD.BRZ ordered. EDMS EDMS
[2021-01-03 19:47] VITALS: BP 185/67; O2SAT 96
== END 2021-01-03 19:35 | disposition home or self-care (01) ==
LOC: ER 15:56
DX: S42.224A 2-part nondisplaced fracture of surgical neck of right humerus, initial encounter for closed fracture (principal); W17.89XA Other fall from one level to another, initial encounter; Y92.000 Kitchen of unspecified non-institutional (private) residence as the place of occurrence of the external cause; I10 Essential (primary) hypertension; E11.9 Type 2 diabetes mellitus without complications; Z95.1 Presence of aortocoronary bypass graft; Z88.5 Allergy status to narcotic agent; Z88.8 Allergy status to other drugs, medicaments and biological substances; Z91.048 Other nonmedicinal substance allergy status
CPT/HCPCS: 70450; 71250; 72125; 73060; 73000; 96375; 96374; 99284; J2405

== ENCOUNTER 2021-01-05 16:22 | Emergency (ER) | payer OTHER ==
[~2021-01-05 16:22] MED LIST: ALTEPLASE 100 MG/100 ML VIAL (For stroke) IV SCH; LABETALOL 20 MG/4ML SYRINGE IV SCH; NA CHLORIDE 0.9% IV SCH; NICARDIPINE HCL IV SCH; ONDANSETRON 4 MG/2 ML VIAL IV SCH
--- NOTE | 2021-01-05 16:59 | RAD REPORT ---
EXAM DESCRIPTION: CT - Ct Stroke Brain Wo Cont - 01/05/2021 4:53 pm CLINICAL HISTORY: r/o stroke Headache, drowsiness, CVA symptomology COMPARISON: HEAD BRAIN W O CONTRAST dated 07/16/2008; Head C Spine Cap Wo Con dated 01/03/2021 TECHNIQUE: All CT scans are performed using dose optimization technique as appropriate and may inclu de automated exposure control or mA/KV adjustment according to patient size. FINDINGS: No intracranial hemorrhage, hydrocephalus or extra-axial fluid collection.Mild generalized brain atrophy is seen with moderate periventricular and deep white matter chronic microvascular isch emia.Area of diminished density is seen adjacent to the left frontal horn measuring 16 mm likely pete te infarction. The paranasal sinuses and mastoids are clear. The calvarium is intact. IMPRESSION: No acute intracranial abnormality. The findings were discussed with Zack Harris in the ER on 01/05/2021 at 4:45 p.m. by telephone.
[2021-01-05 17:09] LABS: Basophils % 0.3 % (0-1.3); Hematocrit 38.4 % (36.0-45.0); Lymphocytes % 16.1 % (15.3-44.8); MPV 7.8 fL (7.6-11.3); RBC Red Blood Cell Count 4.56 M/uL (3.86-4.86)
[2021-01-05 17:10] LABS: Absolute Lymphocytes (CBC) 1.8 K/uL (0.7-4.9)
[2021-01-05 17:12] LABS: Protime INR 1.03
--- NOTE | 2021-01-05 17:29 | ER ---
Nurse's Notes [facility] Name: Fela Ayoub Age: 70 yrs Sex: Female : 1950 Arrival Date: 01/05/2021 Time: 16:23 Bed 8 Private MD: Sahil Howard V Diagnosis: Cerebral infarction, unspecified;Aphasia following cerebral infarction;Essential (primary) hypertension;Obesity due to excess calories Presentation: 01/05 16:57 Acuity: ALE 2 iw 18:47 Coronavirus screen: Vaccine status: Patient reports receiving the 2nd dose of the covid jt3 vaccine. Ebola Screen: Patient negative for fever greater than or equal to 101.5 degrees Fahrenheit, and additional compatible Ebola Virus Disease symptoms Patient denies exposure to infectious person. Patient denies travel to an Ebola-affected area in the 21 days before illness onset. An acute neurological deficit is present. The charge nurse has been notified. Initial Sepsis Screen: Does the patient meet any 2 criteria? No. Patient's initial sepsis screen is negative. Does the patient have a suspected source of infection? No. Patient's initial sepsis screen is negative. Risk Assessment: Do you want to hurt yourself or someone else? Patient reports no desire to harm self or others. Onset of symptoms was January 05, 2021 at 15:30. 18:47 Method Of Arrival: Ambulatory jt3 18:49 Onset of symptoms was January 05, 2021. jt3 18:49 Chief complaint: Spouse and/or significant other states: Slurred speech and expressive jt3 aphasia. Triage Assessment: 18:47 The onset of the patients symptoms was January 05, 2021 at 15:30. General: Appears jt3 distressed, Behavior is cooperative, restless. Historical: - Allergies: 18:31 Hydrocodone-Acetaminophen; hallucination; jt3 18:31 Plavix; jt3 18:31 Iodine; jt3 - Home Meds: 18:31 amlodipine oral [Active]; pravastatin 40 mg Oral tab 1 tab once daily [Active]; ozempic jt3 0.25 weekly [Active]; metoprolol tartrate 100 mg Oral tab 1 tab 3 times per day [Active]; irbesartan 300 mg Oral tab 1 tab once daily [Active]; hydrochlorothiazide 25 mg Oral tab 1 tab once daily [Active]; eddie shetty pen 6 BID [Active]; - PMHx: 18:31 Diabetes - IDDM; High Cholesterol; Hypertension; squamous cell carcinoma; jt3 - Immunization history:: Adult Immunizations up to date. - Family history:: not pertinent. - Social history:: Smoking status: unknown. Screenin:31 Abuse screen: Denies threats or abuse. Denies injuries from another. Nutritional jt3 screening: No deficits noted. Tuberculosis screening: No symptoms or risk factors identified. Fall Risk None identified. Assessment: 16:40 VAN Scoring: Arm Drift: Patients demonstrates NO arm weakness. Patient is VAN Negative. jt3 Visual Disturbance: No visual disturbance noted. Aphasia: Expressive aphasia noted. Provider notified of +VAN scoring. Neglect: No neglect noted. The patient has not been NPO before screening. The patient is alert, and able to follow commands. The patient exhibits slurred or garbled speech. The patient is exhibiting difficulty speaking. The patient does not exhibit difficulty understanding words. The patient is able to swallow own secretions with no drooling or need for suction. N/A N/A-did not test due to severity of situation and priorities of decreasing blood pressure and starting TPA. The patient failed the bedside swallow screening. The patient will be kept NPO until cleared by Speech Therapy or Physician. Provider notified of bedside swallow screening results: Ladarius Alonso MD. T-PA (Activase) Screening: Indications: Definite evidence of stroke, ischemic, embolic, or hypertensive: Yes. Treatment will start within 4.5 hours onset of symptoms: Yes. No evidence of intracranial hemorrhage or CT of head and no evidence of peripheral hemorrhage or recent CVA: Yes. Consent for thrombolytic therapy: Yes. Pain: Complains of pain in right arm Pain does not radiate. Pain currently is 6 out of 10 on a pain scale. Quality of pain is described as throbbing, Pain began 2-3 days ago. Neuro: Reports reports pt. at 3:30pm not being able to get words out correctly. Per , the patient was not making any sense. Pt. unable to state her name or age. Initial NIH of 4 for 1-LOC questions, 1-Best language, 2-Dysarthria. Airway patent on arrival. . 18:43 Reassessment: TPA was delayed due to the patient's blood pressure being greater than jt3 200. Please see blood pressure trends and medications given to lower blood pressure. Labatolol and Nicardipine was given to achieve a blood pressure below 185. Patient was life flighted to [facility]. Vital Signs: 16:57 BP 220 / 94; Pulse 76; Resp 16; Pulse Ox 98% on R/A; iw 17:04 BP 218 / 74; Pulse 77; jt3 17:15 BP 216 / 82; Pulse 75; jt3 17:20 BP 230 / 120; jt3 17:35 BP 206 / 76; Pulse 84; jt3 17:45 BP 179 / 96; jt3 NIH Stroke Scale Scores: 16:40 NIHSS Score: 4 jt3 17:27 NIHSS Score: 3 agueda ED Course: 16:23 Patient arrived in ED. am2 16:23 Sahil Howard MD is Private Physician. am2 16:42 Ladarius Alonso MD is Attending Physician. agueda 16:53 CT Stroke Brain w/o Contrast In Process Unspecified. EDMS 16:57 Triage completed. iw 17:16 Pato Lo, RN is Primary Nurse. jt3 17:34 XRAY Chest (1 view) In Process Unspecified. EDMS 18:31 Patient has correct armband on for positive identification. Bed in low position. Call jt3 light in reach. Side rails up X2. 18:31 No provider procedures requiring assistance completed. Inserted saline lock: 18 gauge jt3 in right in left antecubital area, using aseptic technique. EJ, using aseptic technique. 18:47 Arm band placed on right wrist. jt3 Administered Medications: 17:15 Drug: Labetalol 10 mg Route: IVP; Infused Over: 2 mins; Site: left antecubital; jd3 17:20 Drug: Labetalol 10 mg Route: IVP; Infused Over: 2 mins; Site: left antecubital; jd3 17:30 Drug: Zofran (Ondansetron) 4 mg Route: IVP; Site: left antecubital; jd3 17:35 Drug: Labetalol 20 mg Route: IVP; Infused Over: 2 mins; Site: left antecubital; jt3 17:40 Drug: Cardene (niCARdipine) 5 mg/hr Route: IV; Rate: per protocol; Site: left jt3 antecubital; 17:53 Drug: ACTIvase (alteplase) {Co-Signature: jd3 (Raymond Abrams RN).} Route: IV jt3 Thrombolytics; Rate: calculated rate; Infused Over: 60 mins; 18:19 Not Given (Not given due to mixing TPA and pulling blood pressure medications. ): foLIC jt3 Acid 1 mg IVPB once 18:20 Not Given (Mixing TPA and getting medications to lower BP): Pepcid (famotidine) 20 mg jt3 IVP once; dilute with 10 mL 0.9% NaCl; give over 2 minutes 18:20 Not Given (Hemodynamic Parameters): NS 0.9% 1000 ml IV at 1 bolus Per protocol; 1000 mL jt3 bolus Point of Care Testing: Blood Glucose: 18:47 Blood Glucose: 134 mg/dL; jt3 Ranges: Outcome: 17:29 ER care complete, transfer ordered by MD. agueda 18:24 Patient left the ED. mh5 18:43 Transferred by helicopter to [facility]. jt3 18:43 Condition: stable 18:43 Instructed on the need for transfer, RN to RN report given to CARLOTA Abebe at [facility]. NIH Stroke Scale - NIH Stroke Score Date: 01/05/2021 Time: 16:40 Total Score = 4 1a. Level of Consciousness (LOC) - 0(Alert) 1b. Level of Consciousness (LOC) (Month \T\ Age) - 1(One) 1c. LOC Commands (Open \T\ Closes Eyes/Patient Access Manager) - 0(Both) 2. Best Gaze (Lateral Gaze Paresis) - 0(Normal) 3. Visual Field Loss - 0(No visual loss) 4. Facial Palsy - 0(Normal) 5a. Left Arm: Motor (10-second hold) - 0(No drift) 5b. Right Arm: Motor (10-second hold) - 0(No drift) 6a. Left Leg: Motor (5-second hold - always test supine) - 0(No drift) 6b. Right Leg: Motor (5-second hold - always test supine) - 0(No drift) 7. Limb Ataxia (finger/nose \T\ heel/crow - test with eyes open) - 0(Absent) 8. Sensory Loss (pinprick arms/legs/face) - 0(Normal) 9. Best Language: Aphasia (description/naming/reading) - 1(Mild to moderate aphasia) 10. Dysarthria (speech clarity - read or repeat words) - 2(Severe) 11. Extinction and Inattention (visual/tactile/auditory/spatial/personal) - 0(No abnormality) Initials: alexander NIH Stroke Scale - NIH Stroke Score Date: 01/05/2021 Time: 17:27 Total Score = 3 1a. Level of Consciousness (LOC) - 0(Alert) 1b. Level of Consciousness (LOC) (Month \T\ Age) - 1(One) 1c. LOC Commands (Open \T\ Closes Eyes/Patient Access Manager) - 0(Both) 2. Best Gaze (Lateral Gaze Paresis) - 0(Normal) 3. Visual Field Loss - 0(No visual loss) 4. Facial Palsy - 0(Normal) 5a. Left Arm: Motor (10-second hold) - 0(No drift) 5b. Right Arm: Motor (10-second hold) - 0(No drift) 6a. Left Leg: Motor (5-second hold - always test supine) - 0(No drift) 6b. Right Leg: Motor (5-second hold - always test supine) - 0(No drift) 7. Limb Ataxia (finger/nose \T\ heel/crow - test with eyes open) - 0(Absent) 8. Sensory Loss (pinprick arms/legs/face) - 0(Normal) 9. Best Language: Aphasia (description/naming/reading) - 1(Mild to moderate aphasia) 10. Dysarthria (speech clarity - read or repeat words) - 1(Mild to Moderate) 11. Extinction and Inattention (visual/tactile/auditory/spatial/personal) - 0(No abnormality) Initials: agueda Signatures: Dispatcher [employer] EDLadarius Arzola MD MD cha Williams, Irene, Lindy Thomas RN Kala Chaudhry Jonathon, RN RN jd3 Pato Lo RN RN jt3 Raymond Abrams RN jd3 Corrections: (The following items were deleted from the chart) 18:22 18:21 Labetalol 20 mg IVP in left antecubital over 2 mins jt3 jt3
--- NOTE | 2021-01-05 17:30 | EDPHYS ---
Physician Documentation [facility] Name: Fela Ayoub Age: 70 yrs Sex: Female : 1950 Arrival Date: 01/05/2021 Time: 16:23 Bed 8 Private MD: Sahil Howard V ED Physician Ladarius Alonso HPI: 01/05 16:53 This 70 yrs old Female presents to ER via Unassigned with complaints of S/S agueda of Possible Stroke. 16:53 The patient's problem is reported as a facial droop, on left, dysphasia, slurred agueda speech, slow speech, expressive aphasia. Onset: The symptoms/episode began/occurred just prior to arrival. Duration: This was a single incident, The episode is continuous. Context: the episode(s) was witnessed, by family, . The symptoms are alleviated by nothing. The symptoms are aggravated by nothing. Associated signs and symptoms: The patient has no apparent associated signs or symptoms. Severity of symptoms: At their worst the symptoms were mild in the emergency department the symptoms are unchanged. Patient's baseline: Neuro: alert and fully oriented. The patient has not experienced similar symptoms in the past. Historical: - Allergies: 18:31 Hydrocodone-Acetaminophen; hallucination; jt3 18:31 Plavix; jt3 18:31 Iodine; jt3 - Home Meds: 18:31 amlodipine oral [Active]; pravastatin 40 mg Oral tab 1 tab once daily [Active]; ozempic jt3 0.25 weekly [Active]; metoprolol tartrate 100 mg Oral tab 1 tab 3 times per day [Active]; irbesartan 300 mg Oral tab 1 tab once daily [Active]; hydrochlorothiazide 25 mg Oral tab 1 tab once daily [Active]; basaglar kwik pen 6 BID [Active]; - PMHx: 18:31 Diabetes - IDDM; High Cholesterol; Hypertension; squamous cell carcinoma; jt3 - Immunization history:: Adult Immunizations up to date. - Family history:: not pertinent. - Social history:: Smoking status: unknown. ROS: 16:53 Constitutional: Negative for fever, chills, and weight loss, Eyes: Negative for injury, agueda pain, redness, and discharge, ENT: Negative for injury, pain, and discharge, Neck: Negative for injury, pain, and swelling, Cardiovascular: Negative for chest pain, palpitations, and edema, Respiratory: Negative for shortness of breath, cough, wheezing, and pleuritic chest pain, Abdomen/GI: Negative for abdominal pain, nausea, vomiting, diarrhea, and constipation, Back: Negative for injury and pain, : Negative for injury, bleeding, discharge, and swelling, MS/Extremity: Negative for injury and deformity, Skin: Negative for injury, rash, and discoloration, Psych: Negative for depression, anxiety, suicide ideation, homicidal ideation, and hallucinations, Allergy/Immunology: Negative for hives, rash, and allergies, Endocrine: Negative for neck swelling, polydipsia, polyuria, polyphagia, and marked weight changes. 16:53 Neuro: Positive for altered mental status, headache, speech changes. Exam: 16:53 Radiologist reports: negative agueda 16:53 Constitutional: This is a well developed, well nourished patient who is awake, alert, and in no acute distress. Eyes: Pupils equal round and reactive to light, extra-ocular motions intact. Lids and lashes normal. Conjunctiva and sclera are non-icteric and not injected. Cornea within normal limits. Periorbital areas with no swelling, redness, or edema. ENT: Nares patent. No nasal discharge, no septal abnormalities noted. Tympanic membranes are normal and external auditory canals are clear. Oropharynx with no redness, swelling, or masses, exudates, or evidence of obstruction, uvula midline. Mucous membranes moist. Neck: Trachea midline, no thyromegaly or masses palpated, and no cervical lymphadenopathy. Supple, full range of motion without nuchal rigidity, or vertebral point tenderness. No Meningismus. Chest/axilla: Normal chest wall appearance and motion. Nontender with no deformity. No lesions are appreciated. Cardiovascular: Regular rate and rhythm with a normal S1 and S2. No gallops, murmurs, or rubs. Normal PMI, no JVD. No pulse deficits. Respiratory: Lungs have equal breath sounds bilaterally, clear to auscultation and percussion. No rales, rhonchi or wheezes noted. No increased work of breathing, no retractions or nasal flaring. Abdomen/GI: Soft, non-tender, with normal bowel sounds. No distension or tympany. No guarding or rebound. No evidence of tenderness throughout. Back: No spinal tenderness. No costovertebral tenderness. Full range of motion. Female : Normal external genitalia. Skin: Warm, dry with normal turgor. Normal color with no rashes, no lesions, and no evidence of cellulitis. MS/ Extremity: Pulses equal, no cyanosis. Neurovascular intact. Full, normal range of motion. Psych: Awake, alert, with orientation to person, place and time. Behavior, mood, and affect are within normal limits. 16:53 Neuro: Orientation: unable to test, Mentation: slow to respond, confused, Memory: unable to test, Cranial nerves: facial droop noted on left, Cerebellar function: unable to test, Motor: moves all fours, strength is 5/5 in all extremities, Sensation: no obvious gross deficits, no acute changes, Gait: not tested. Babinski testing is normal, seizure activity, is not displayed by the patient. 17:26 ECG was reviewed by the Attending Physician. agueda Vital Signs: 16:57 BP 220 / 94; Pulse 76; Resp 16; Pulse Ox 98% on R/A; iw 17:04 BP 218 / 74; Pulse 77; jt3 17:15 BP 216 / 82; Pulse 75; jt3 17:20 BP 230 / 120; jt3 17:35 BP 206 / 76; Pulse 84; jt3 17:45 BP 179 / 96; jt3 NIH Stroke Scale Scores: 16:40 NIHSS Score: 4 jt3 17:27 NIHSS Score: 3 agueda Procedures: 18:09 Peripheral line: by aseptic technique a peripheral line was placed in the right [facility] external jugular vein. MDM: 16:42 Patient medically screened. agueda 17:25 Differential diagnosis: CVA, TIA. Data reviewed: vital signs, nurses notes, lab test agueda result(s), EKG, radiologic studies, CT scan, plain films. Data interpreted: vehicle monitor technician: rate is 76 beats/min, rhythm is regular, Pulse oximetry: on room air is 98 %. Test interpretation: by ED physician or midlevel provider: ECG, plain radiologic studies. Counseling: I had a detailed discussion with the patient and/or guardian regarding: the historical points, exam findings, and any diagnostic results supporting the discharge/admit diagnosis, the presence of at least one elevated blood pressure reading (>120/80) during this emergency department visit, lab results, the need for outpatient follow up, the need to transfer to another facility, for higher level of care, [facility] does not immediately have the required specialist. 01/05 16:52 Order name: Basic Metabolic Panel [facility] 01/05 16:52 Order name: CBC with Diff; Complete Time: 17:24 [facility] 01/05 16:52 Order name: LFT's [facility] 01/05 16:52 Order name: Magnesium [facility] 01/05 16:52 Order name: NT PRO-BNP [facility] 01/05 16:52 Order name: PT-INR; Complete Time: 17:24 [facility] 01/05 16:46 Order name: CT Stroke Brain w/o Contrast; Complete Time: 17:24 01/05 16:52 Order name: Troponin (emerg Dept Use Only) [facility] 01/05 16:52 Order name: XRAY Chest (1 view) [facility] 01/05 16:59 Order name: Glucose, Ancillary Testing; Complete Time: 17:24 EDMS 01/05 17:00 Order name: COVID-19 SARS RT PCR (Document "Date of Onset" if Symptomatic) 01/05 17:00 Order name: SARS-COV-2 RT PCR (Document "Date of Onset" if Symptomatic) [facility] 01/05 16:52 Order name: EKG; Complete Time: 16:53 [facility] 01/05 16:52 Order name: Cardiac monitoring; Complete Time: 17:24 [facility] 01/05 16:52 Order name: EKG - Nurse/Tech; Complete Time: 17:24 [facility] 01/05 16:52 Order name: IV Saline Lock; Complete Time: 17:24 [facility] 01/05 16:52 Order name: Labs collected and sent; Complete Time: 17:25 [facility] 01/05 16:52 Order name: O2 Per Protocol; Complete Time: 17:25 [facility] 01/05 16:52 Order name: O2 Sat Monitoring; Complete Time: 17:25 [facility] 01/05 16:52 Order name: Urine Dipstick-Ancillary (obtain specimen) [facility] 01/05 17:24 Order name: IV - Large Bore; Complete Time: 17:25 [facility] EC:26 Rate is 83 beats/min. Rhythm is regular. QRS [place] is Normal. ME interval is prolonged agueda at 230 msec. QRS interval is normal. QT interval is normal. No Q waves. T waves are Normal. No ST changes noted. Clinical impression: NSR w/ Non-specific ST/T Changes, 1st degree heart block, and No evidence of ischemia. Interpreted by me. Reviewed by me. Administered Medications: 17:15 Drug: Labetalol 10 mg Route: IVP; Infused Over: 2 mins; Site: left antecubital; jd3 17:20 Drug: Labetalol 10 mg Route: IVP; Infused Over: 2 mins; Site: left antecubital; jd3 17:30 Drug: Zofran (Ondansetron) 4 mg Route: IVP; Site: left antecubital; jd3 17:35 Drug: Labetalol 20 mg Route: IVP; Infused Over: 2 mins; Site: left antecubital; jt3 17:40 Drug: Cardene (niCARdipine) 5 mg/hr Route: IV; Rate: per protocol; Site: left jt3 antecubital; 17:53 Drug: ACTIvase (alteplase) {Co-Signature: jd3 (Raymond Abrams RN).} Route: IV jt3 Thrombolytics; Rate: calculated rate; Infused Over: 60 mins; 18:19 Not Given (Not given due to mixing TPA and pulling blood pressure medications. ): foLIC jt3 Acid 1 mg IVPB once 18:20 Not Given (Mixing TPA and getting medications to lower BP): Pepcid (famotidine) 20 mg jt3 IVP once; dilute with 10 mL 0.9% NaCl; give over 2 minutes 18:20 Not Given (Hemodynamic Parameters): NS 0.9% 1000 ml IV at 1 bolus Per protocol; 1000 mL jt3 bolus Point of Care Testing: Blood Glucose: 18:47 Blood Glucose: 134 mg/dL; jt3 Ranges: Critical Glucose Levels:Adult <50 mg/dl or >400 mg/dl <40 mg/dl or >180 mg/dl Disposition Summary: 01/05/21 17:29 Transfer Ordered Transfer Location: [facility] agueda Reason: Higher level of care agueda Condition: Serious agueda Problem: new agueda Symptoms: have improved agueda Accepting Physician: to [facility], [facility](01/05/21 18:24) [email or web address] Diagnosis - Cerebral infarction, unspecified agueda - Aphasia following cerebral infarction agueda - Essential (primary) hypertension agueda - Obesity due to excess calories agueda Forms: - Medication Reconciliation Form agueda - SBAR form agueda Critical care time excluding procedures: 18:10 Critical care time: Bedside Care: 45 minutes, Consultation: 15 minutes, Family agueda Intervention: 10 minutes. Total time: 70 minutes NIH Stroke Scale - NIH Stroke Score Date: 01/05/2021 Time: 16:40 Total Score = 4 1a. Level of Consciousness (LOC) - 0(Alert) 1b. Level of Consciousness (LOC) (Month \\T\\ Age) - 1(One) 1c. LOC Commands (Open \\T\\ Closes Eyes/Cab Driver) - 0(Both) 2. Best Gaze (Lateral Gaze Paresis) - 0(Normal) 3. Visual Field Loss - 0(No visual loss) 4. Facial Palsy - 0(Normal) 5a. Left Arm: Motor (10-second hold) - 0(No drift) 5b. Right Arm: Motor (10-second hold) - 0(No drift) 6a. Left Leg: Motor (5-second hold - always test supine) - 0(No drift) 6b. Right Leg: Motor (5-second hold - always test supine) - 0(No drift) 7. Limb Ataxia (finger/nose \\T\\ heel/crow - test with eyes open) - 0(Absent) 8. Sensory Loss (pinprick arms/legs/face) - 0(Normal) 9. Best Language: Aphasia (description/naming/reading) - 1(Mild to moderate aphasia) 10. Dysarthria (speech clarity - read or repeat words) - 2(Severe) 11. Extinction and Inattention (visual/tactile/auditory/spatial/personal) - 0(No abnormality) Initials: jt3 NIH Stroke Scale - NIH Stroke Score Date: 01/05/2021 Time: 17:27 Total Score = 3 1a. Level of Consciousness (LOC) - 0(Alert) 1b. Level of Consciousness (LOC) (Month \\T\\ Age) - 1(One) 1c. LOC Commands (Open \\T\\ Closes Eyes/Cab Driver) - 0(Both) 2. Best Gaze (Lateral Gaze Paresis) - 0(Normal) 3. Visual Field Loss - 0(No visual loss) 4. Facial Palsy - 0(Normal) 5a. Left Arm: Motor (10-second hold) - 0(No drift) 5b. Right Arm: Motor (10-second hold) - 0(No drift) 6a. Left Leg: Motor (5-second hold - always test supine) - 0(No drift) 6b. Right Leg: Motor (5-second hold - always test supine) - 0(No drift) 7. Limb Ataxia (finger/nose \\T\\ heel/crow - test with eyes open) - 0(Absent) 8. Sensory Loss (pinprick arms/legs/face) - 0(Normal) 9. Best Language: Aphasia (description/naming/reading) - 1(Mild to moderate aphasia) 10. Dysarthria (speech clarity - read or repeat words) - 1(Mild to Moderate) 11. Extinction and Inattention (visual/tactile/auditory/spatial/personal) - 0(No abnormality) Initials: agueda Signatures: Dispatcher [employer] EDLadarius Arzola MD MD cha Martinez, [facility] Raymond Abrams RN RN jd3 Pato Lo RN RN jt3 Raymond Abrams RN jd3 Corrections: (The following items were deleted from the chart) 18:24 17:29 to [facility], [facility]
[2021-01-05 17:35] LABS: ALT/SGPT 28 U/L (12-78); AST/SGOT 12 U/L (15-37); Albumin 3.4 g/dL (3.4-5.0); Alkaline Phosphatase 73 U/L (45-117); BUN Blood Urea Nitrogen 18 mg/dL (7-18); Bicarbonate 29 mmol/L (21-32); Bilirubin Direct 0.2 mg/dL (0-0.2); Bilirubin Total 0.7 mg/dL (0.2-1.0); Glucose Level 138 mg/dL (74-106); Magnesium 1.7 mg/dL (1.8-2.4); NT PRO-BNP 243 pg/mL (<125); Potassium 3.3 mmol/L (3.5-5.1); Protein, Total 8.1 g/dL (6.4-8.2); Sodium Level 135 mmol/L (136-145); Troponin (Emerg Dept Use Only) < 0.02 ng/mL (0.0-0.045)
--- NOTE | 2021-01-05 18:38 | RAD REPORT ---
EXAM DESCRIPTION: RAD - Chest Single View - 01/05/2021 5:34 pm CLINICAL HISTORY: COUGH Chest pain. COMPARISON: Chest Single View dated 10/22/2020; Chest Single View dated 10/20/2020; Chest Pa And Lat ( 2 Views) dated 03/20/2019; Chest Pa And Lat (2 Views) dated 08/27/2018 FINDINGS: Portable technique limits examination quality. The lungs are grossly clear. The heart is normal in size. No displaced fractures. IMPRESSION: No acute intrathoracic process suspected.
[2021-01-05 18:45] VITALS: BP 220/94; O2SAT 98
--- NOTE | 2021-01-06 13:13 | EKG ---
Test Date: 2021-01-05 Test Time: 16:45:45 Protective Services Social Worker: MIN MEASUREMENT RESULTS: Intervals: Rate: 83 SC: 230 QRSD: 104 QT: 390 QTc: 458 [place]: P: 52 SC: 230 QRS: -5 T: 31 INTERPRETIVE STATEMENTS: Sinus rhythm with 1st degree AV block Nonspecific ST abnormality Abnormal ECG Compared to ECG 10/20/2020 11:00:11 Sinus arrhythmia no longer present ST (T wave) deviation still present Electronically Signed On 01-06-21 13:10:28 CDT by Reginaldo Jurado
--- OUTSIDE RECORDS SUMMARY | 2021-01-16 08:25 | XMS REPORT | Continuity of Care Document ---
:1950 Author Organization [facility] t Address [address] [place] [address] Care Team Providers Name Role Phone LITO Attending Clinician Unavailable FELIBERTO MILLER Attending Clinician Unavailable FELIBERTO MILLER Admitting Clinician Unavailable Payers Payer Name Policy Type Policy Number Effective Date Expiration Date S ledy MEDICARE A B [id number] 2013 00:00:00 GENERIC MEDICARE [id number] 2020 SUPPLEMENT 00:00:00 Problems This patient has no known problems. Allergies, Adverse Reactions, Alerts Allergy Allergy Status Severity Reaction(s) Onset Inactive Treating Comm ents Source Name Type Date Date Clinician NO KNOWN Allergy Active [facility] Medications This patient has no known medications. Vital Signs Vital Name Observation Time Observation Value Comments Source WEIGHT 2021-01-05 19:30:00 102.513 kg HEIGHT 2021-01-05 19:30:00 160 cm WEIGHT 2021-01-05 19:30:00 102.513 kg HEIGHT 2021-01-05 19:30:00 160 cm Procedures This patient has no known procedures. Encounters Start End Encounter Admission Attending Care Care Encounter Source Date/Time Date/Time Type Type Clinicians Facility Department ID 2021-01-05 2021-01-12 Inpatient ER SHARATH MORSE [facility] Neuro ICU [id number] [facility] 18:51:00 12:41:00 Results Test Description Test Time Test Comments Results Result Comments Source POCT-GLUCOSE METER 2021-01-12 08:55:56 Test Item Value Reference Range Interpretation Comme nts POC-GLUCOSE METER (BEAKER) 290 mg/dL 70-110 H : TESTED AT [facility] 67[address] MP (test code = 1538) [place], [address]: Suggestion Clerk/Techni kenzie ID = [id number] for Nadiya Alonso [id number] 05:19:28 Test Item Value Reference Range Interpretation Comments MAGNESIUM (BEAKER) (test code = 1.6 mg/dL 1.6-2.6 627) Suggestion Clerk ID - CONOR [id number] 05:19:28 Test Item Value Reference Range Interpretation Comments PHOSPHORUS (BEAKER) (test code = 4.0 mg/dL 2.3-4.7 604) Suggestion Clerk ID - CONOR LBASIC METABOLIC [id number] 05:19:27 Test Item Value Reference Range Interpretation Comments SODIUM (BEAKER) 133 meq/L 136-145 L (test code = 381) POTASSIUM (BEAKER) 3.7 meq/L 3.5-5.1 (test code = 379) CHLORIDE (BEAKER) 95 meq/L 98-107 L (test code = 382) CO2 (BEAKER) (test 26 meq/L 22-29 code = 355) BLOOD UREA NITROGEN 24 mg/dL 7-21 H (BEAKER) (test code = 354) CREATININE (BEAKER) 0.70 mg/dL 0.57-1.25 (test code = 358) GLUCOSE RANDOM 224 mg/dL 70-105 H (BEAKER) (test code = 652) CALCIUM (BEAKER) 9.1 mg/dL 8.4-10.2 (test code = 697) EGFR (BEAKER) (test 82 mL/min/1.73 ESTIMA JEREMIAH GFR IS code = 1092) sq m NOT ACCURATE CREATININE CLEARANCE IN PREDICTING GLOMERULAR FILTRATION RATE . ESTIMATED GFR I S NOT APPLICABLE FOR DIALYSIS PATIEN TS. Suggestion Clerk ID - CONOR LCBC W/PLT COUNT & AUTO [id number] 05:09:03 Test Item Value Reference Range Interpretation Comments WHITE BLOOD CELL COUNT (BEAKER) 12.0 K/ L 3.5-10.5 H (test code = 775) RED BLOOD CELL COUNT (BEAKER) 4.47 M/ L 3.93-5.22 (test code = 761) HEMOGLOBIN (BEAKER) (test code = 12.7 GM/DL 11.2-15.7 410) HEMATOCRIT (BEAKER) (test code = 38.6 % 34.1-44.9 411) MEAN CORPUSCULAR VOLUME (BEAKER) 86.4 fL 79.4-94.8 (test code = 753) MEAN CORPUSCULAR HEMOGLOBIN 28.4 pg 25.6-32.2 (BEAKER) (test code = 751) MEAN CORPUSCULAR HEMOGLOBIN CONC 32.9 GM/DL 32.2-35.5 (BEAKER) (test code = 752) RED CELL DISTRIBUTION WIDTH 14.4 % 11.7-14.4 (BEAKER) (test code = 412) PLATELET COUNT (BEAKER) (test 339 K/CU MM 150-450 code = 756) MEAN PLATELET VOLUME (BEAKER) 9.7 fL 9.4-12.3 (test code = 754) NUCLEATED RED BLOOD CELLS 0 /100 WBC 0-0 (BEAKER) (test code = 413) NEUTROPHILS RELATIVE PERCENT 68 % (BEAKER) (test code = 429) LYMPHOCYTES RELATIVE PERCENT 21 % (BEAKER) (test code = 430) MONOCYTES RELATIVE PERCENT 6 % (BEAKER) (test code = 431) EOSINOPHILS RELATIVE PERCENT 3 % (BEAKER) (test code = 432) BASOPHILS RELATIVE PERCENT 1 % (BEAKER) (test code = 437) NEUTROPHILS ABSOLUTE COUNT 8.09 K/ L 1.56-6.13 H (BEAKER) (test code = 670) LYMPHOCYTES ABSOLUTE COUNT 2.55 K/ L 1.18-3.74 (BEAKER) (test code = 414) MONOCYTES ABSOLUTE COUNT (BEAKER) 0.77 K/ L 0.24-0.36 H (test code = 415) EOSINOPHILS ABSOLUTE COUNT 0.38 K/ L 0.04-0.36 H (BEAKER) (test code = 416) BASOPHILS ABSOLUTE COUNT (BEAKER) 0.08 K/ L 0.01-0.08 (test code = 417) IMMATURE GRANULOCYTES-RELATIVE 1 % 0-1 PERCENT (BEAKER) (test code = 2801) POCT-GLUCOSE [id number] 23:33:30 Test Item Value Reference Range Interpretation Comments POC-GLUCOSE METER 118 mg/dL 70-110 H : TESTED A T [facility] 6720 (BEAKER) (test code = [facility], 1538) [address]: Suggestion Clerk/Techni kenzie ID = [id number] for Kenia Stover POCT-GLUCOSE [id number] 16:42:37 Test Item Value Reference Range Interpretation Comments POC-GLUCOSE METER 179 mg/dL 70-110 H : TESTED A T [facility] 6720 (BEAKER) (test code = [facility], 1538) [address]: Suggestion Clerk/Techni kenzie ID = [id number] for An rayshawn, Nadiya POCT-GLUCOSE [id number] 12:48:21 Test Item Value Reference Range Interpretation Comments POC-GLUCOSE METER 414 mg/dL 70-110 HH : TESTED A T [facility] 6720 (BEAKER) (test code = [facility], 1538) [address]: Suggestion Clerk/Techni kenzie ID = [id number] for An rayshawn, Nadiya POCT-GLUCOSE [id number] 07:23:54 Test Item Value Reference Range Interpretation Comments POC-GLUCOSE METER 307 mg/dL 70-110 H : TESTED A T [facility] 6720 (BEAKER) (test code = [facility], 1538) [address]: Suggestion Clerk/Techni kenzie ID = [id number] for Sae field (contract)Ivone [id number] 05:34:22 Test Item Value Reference Range Interpretation Comments MAGNESIUM (BEAKER) (test code = 1.7 mg/dL 1.6-2.6 627) Suggestion Clerk ID - TRISH [id number] 05:34:22 Test Item Value Reference Range Interpretation Comments PHOSPHORUS (BEAKER) (test code = 3.6 mg/dL 2.3-4.7 604) Suggestion Clerk ID - TRISH MBASIC METABOLIC [id number] 05:34:21 Test Item Value Reference Range Interpretation Comments SODIUM (BEAKER) 134 meq/L 136-145 L (test code = 381) POTASSIUM (BEAKER) 4.0 meq/L 3.5-5.1 (test code = 379) CHLORIDE (BEAKER) 96 meq/L 98-107 L (test code = 382) CO2 (BEAKER) (test 26 meq/L 22-29 code = 355) BLOOD UREA NITROGEN 24 mg/dL 7-21 H (BEAKER) (test code = 354) CREATININE (BEAKER) 0.64 mg/dL 0.57-1.25 (test code = 358) GLUCOSE RANDOM 308 mg/dL 70-105 H (BEAKER) (test code = 652) CALCIUM (BEAKER) 9.2 mg/dL 8.4-10.2 (test code = 697) EGFR (BEAKER) (test 91 mL/min/1.73 ESTIMA JEREMIAH GFR IS code = 1092) sq m NOT ACCURATE CREATININE CLEARANCE IN PREDICTING GLOMERULAR FILTRATION RATE . ESTIMATED GFR I S NOT APPLICABLE FOR DIALYSIS PATIEN TS. Suggestion Clerk ID - TRISH MCBC W/PLT COUNT & AUTO [id number] 04:48:58 Test Item Value Reference Range Interpretation Comments WHITE BLOOD CELL COUNT (BEAKER) 10.7 K/ L 3.5-10.5 H (test code = 775) RED BLOOD CELL COUNT (BEAKER) 4.18 M/ L 3.93-5.22 (test code = 761) HEMOGLOBIN (BEAKER) (test code = 12.1 GM/DL 11.2-15.7 410) HEMATOCRIT (BEAKER) (test code = 35.9 % 34.1-44.9 411) MEAN CORPUSCULAR VOLUME (BEAKER) 85.9 fL 79.4-94.8 (test code = 753) MEAN CORPUSCULAR HEMOGLOBIN 28.9 pg 25.6-32.2 (BEAKER) (test code = 751) MEAN CORPUSCULAR HEMOGLOBIN CONC 33.7 GM/DL 32.2-35.5 (BEAKER) (test code = 752) RED CELL DISTRIBUTION WIDTH 14.1 % 11.7-14.4 (BEAKER) (test code = 412) PLATELET COUNT (BEAKER) (test 319 K/CU MM 150-450 code = 756) MEAN PLATELET VOLUME (BEAKER) 9.9 fL 9.4-12.3 (test code = 754) NUCLEATED RED BLOOD CELLS 0 /100 WBC 0-0 (BEAKER) (test code = 413) NEUTROPHILS RELATIVE PERCENT 63 % (BEAKER) (test code = 429) LYMPHOCYTES RELATIVE PERCENT 25 % (BEAKER) (test code = 430) MONOCYTES RELATIVE PERCENT 8 % (BEAKER) (test code = 431) EOSINOPHILS RELATIVE PERCENT 4 % (BEAKER) (test code = 432) BASOPHILS RELATIVE PERCENT 1 % (BEAKER) (test code = 437) NEUTROPHILS ABSOLUTE COUNT 6.70 K/ L 1.56-6.13 H (BEAKER) (test code = 670) LYMPHOCYTES ABSOLUTE COUNT 2.61 K/ L 1.18-3.74 (BEAKER) (test code = 414) MONOCYTES ABSOLUTE COUNT (BEAKER) 0.82 K/ L 0.24-0.36 H (test code = 415) EOSINOPHILS ABSOLUTE COUNT 0.38 K/ L 0.04-0.36 H (BEAKER) (test code = 416) BASOPHILS ABSOLUTE COUNT (BEAKER) 0.09 K/ L 0.01-0.08 H (test code = 417) IMMATURE GRANULOCYTES-RELATIVE 1 % 0-1 PERCENT (BEAKER) (test code = 2801) POCT-GLUCOSE [id number] 21:55:36 Test Item Value Reference Range Interpretation Comments POC-GLUCOSE METER 308 mg/dL 70-110 H : TESTED A T [facility] 6720 (BEAKER) (test code = [facility], [facility]) [address]: Suggestion Clerk/Techni kenzie ID = [id number] for Fang Tracey POCT-GLUCOSE [id number] 16:47:18 Test Item Value Reference Range Interpretation Comments POC-GLUCOSE METER 349 mg/dL 70-110 H : TESTED A T [facility] 6720 (BEAKER) (test code = [facility], [facility]) [address]: Suggestion Clerk/Techni kenzie ID = [id number] for MIKE COLMENARESL POCT-GLUCOSE [id number] 12:07:39 Test Item Value Reference Range Interpretation Comments POC-GLUCOSE METER 429 mg/dL 70-110 HH : TESTED A T [facility] 6720 (BEAKER) (test code = [facility], 1538) [address]: Suggestion Clerk/Techni kenzie ID = [id number] for CAMI MATHUR POCT-GLUCOSE [id number] 09:13:52 Test Item Value Reference Range Interpretation Comments POC-GLUCOSE METER 357 mg/dL 70-110 H : TESTED A T [facility] 6720 (BEAKER) (test code = [facility], 1538) [address]: Suggestion Clerk/Techni kenzie ID = [id number] for CAMI MATHUR [id number] 08:01:34 Test Item Value Reference Range Interpretation Comments PHOSPHORUS (BEAKER) (test code = 3.4 mg/dL 2.3-4.7 604) Suggestion Clerk ID - CONOR [id number] 07:20:33 Test Item Value Reference Range Interpretation Comments MAGNESIUM (BEAKER) (test code = 1.9 mg/dL 1.6-2.6 627) Suggestion Clerk ID - CONOR LBASIC METABOLIC [id number] 07:20:32 Test Item Value Reference Range Interpretation Comments SODIUM (BEAKER) 132 meq/L 136-145 L (test code = 381) POTASSIUM (BEAKER) 4.1 meq/L 3.5-5.1 (test code = 379) CHLORIDE (BEAKER) 94 meq/L 98-107 L (test code = 382) CO2 (BEAKER) (test 25 meq/L 22-29 code = 355) BLOOD UREA NITROGEN 24 mg/dL 7-21 H (BEAKER) (test code = 354) CREATININE (BEAKER) 0.77 mg/dL 0.57-1.25 (test code = 358) GLUCOSE RANDOM 379 mg/dL 70-105 H (BEAKER) (test code = 652) CALCIUM (BEAKER) 9.2 mg/dL 8.4-10.2 (test code = 697) EGFR (BEAKER) (test 74 mL/min/1.73 ESTIMA JEREMIAH GFR IS code = 1092) sq m NOT ACCURATE CREATININE CLEARANCE IN PREDICTING GLOMERULAR FILTRATION RATE . ESTIMATED GFR I S NOT APPLICABLE FOR DIALYSIS PATIEN TS. Suggestion Clerk ID - CONOR LCBC W/PLT COUNT & AUTO [id number] 07:02:47 Test Item Value Reference Range Interpretation Comments WHITE BLOOD CELL COUNT (BEAKER) 11.9 K/ L 3.5-10.5 H (test code = 775) RED BLOOD CELL COUNT (BEAKER) 4.31 M/ L 3.93-5.22 (test code = 761) HEMOGLOBIN (BEAKER) (test code = 12.3 GM/DL 11.2-15.7 410) HEMATOCRIT (BEAKER) (test code = 36.8 % 34.1-44.9 411) MEAN CORPUSCULAR VOLUME (BEAKER) 85.4 fL 79.4-94.8 (test code = 753) MEAN CORPUSCULAR HEMOGLOBIN 28.5 pg 25.6-32.2 (BEAKER) (test code = 751) MEAN CORPUSCULAR HEMOGLOBIN CONC 33.4 GM/DL 32.2-35.5 (BEAKER) (test code = 752) RED CELL DISTRIBUTION WIDTH 14.0 % 11.7-14.4 (BEAKER) (test code = 412) PLATELET COUNT (BEAKER) (test 350 K/CU MM 150-450 code = 756) MEAN PLATELET VOLUME (BEAKER) 9.6 fL 9.4-12.3 (test code = 754) NUCLEATED RED BLOOD CELLS 0 /100 WBC 0-0 (BEAKER) (test code = 413) NEUTROPHILS RELATIVE PERCENT 71 % (BEAKER) (test code = 429) LYMPHOCYTES RELATIVE PERCENT 19 % (BEAKER) (test code = 430) MONOCYTES RELATIVE PERCENT 7 % (BEAKER) (test code = 431) EOSINOPHILS RELATIVE PERCENT 3 % (BEAKER) (test code = 432) BASOPHILS RELATIVE PERCENT 1 % (BEAKER) (test code = 437) NEUTROPHILS ABSOLUTE COUNT 8.42 K/ L 1.56-6.13 H (BEAKER) (test code = 670) LYMPHOCYTES ABSOLUTE COUNT 2.22 K/ L 1.18-3.74 (BEAKER) (test code = 414) MONOCYTES ABSOLUTE COUNT (BEAKER) 0.81 K/ L 0.24-0.36 H (test code = 415) EOSINOPHILS ABSOLUTE COUNT 0.31 K/ L 0.04-0.36 (BEAKER) (test code = 416) BASOPHILS ABSOLUTE COUNT (BEAKER) 0.09 K/ L 0.01-0.08 H (test code = 417) IMMATURE GRANULOCYTES-RELATIVE 1 % 0-1 PERCENT (BEAKER) (test code = 2801) POCT-GLUCOSE [id number] 00:19:20 Test Item Value Reference Range Interpretation Comments POC-GLUCOSE METER 390 mg/dL 70-110 H : TESTED Julissa Mckeon [facility] 6720 (BEAKER) (test code = [place], 1538) [address]: Suggestion Clerk/Techni kenzie ID = [id number] for Fang Tracey POCT-GLUCOSE [id number] 18:02:03 Test Item Value Reference Range Interpretation Comments POC-GLUCOSE METER 390 mg/dL 70-110 H : TESTED A T [facility] 6720 (RADHA) (test code = [place] [facility], 1538) [address]: Suggestion Clerk/Techni kenzie ID = [id number] for CAMI MATHUR POCT-GLUCOSE [id number] 13:25:11 Test Item Value Reference Range Interpretation Comments POC-GLUCOSE METER 449 mg/dL 70-110 HH : Notified RN/MD: (RADHA) (test code = TESTED AT [facility] 6720 1538) [facility], [address]: Suggestion Clerk/Techni kenzie ID = [id number] for CAMI MATHUR POCT-GLUCOSE [id number] 08:48:27 Test Item Value Reference Range Interpretation Comments POC-GLUCOSE METER 347 mg/dL 70-110 H : Notified RN/MD: (RADHA) (test code = TESTED AT [place] [address] 1538) [facility], [address]: Suggestion Clerk/Techni kenzie ID = [id number] for CAMI MATHUR CBC W/PLT COUNT & AUTO [id number] 07:45:14 Test Item Value Reference Range Interpretation Comments WHITE BLOOD CELL COUNT (BEAKER) 11.6 K/ L 3.5-10.5 H (test code = 775) RED BLOOD CELL COUNT (BEAKER) 4.41 M/ L 3.93-5.22 (test code = 761) HEMOGLOBIN (BEAKER) (test code = 12.6 GM/DL 11.2-15.7 410) HEMATOCRIT (BEAKER) (test code = 39.3 % 34.1-44.9 411) MEAN CORPUSCULAR VOLUME (BEAKER) 89.1 fL 79.4-94.8 (test code = 753) MEAN CORPUSCULAR HEMOGLOBIN 28.6 pg 25.6-32.2 (BEAKER) (test code = 751) MEAN CORPUSCULAR HEMOGLOBIN CONC 32.1 GM/DL 32.2-35.5 L (BEAKER) (test code = 752) RED CELL DISTRIBUTION WIDTH 14.2 % 11.7-14.4 (BEAKER) (test code = 412) PLATELET COUNT (BEAKER) (test 273 K/CU MM 150-450 code = 756) MEAN PLATELET VOLUME (BEAKER) 10.4 fL 9.4-12.3 (test code = 754) NUCLEATED RED BLOOD CELLS 0 /100 WBC 0-0 (BEAKER) (test code = 413) NEUTROPHILS RELATIVE PERCENT 69 % (BEAKER) (test code = 429) LYMPHOCYTES RELATIVE PERCENT 17 % (BEAKER) (test code = 430) MONOCYTES RELATIVE PERCENT 8 % (BEAKER) (test code = 431) EOSINOPHILS RELATIVE PERCENT 4 % (BEAKER) (test code = 432) BASOPHILS RELATIVE PERCENT 1 % (BEAKER) (test code = 437) NEUTROPHILS ABSOLUTE COUNT 7.98 K/ L 1.56-6.13 H (BEAKER) (test code = 670) LYMPHOCYTES ABSOLUTE COUNT 2.00 K/ L 1.18-3.74 (BEAKER) (test code = 414) MONOCYTES ABSOLUTE COUNT (BEAKER) 0.91 K/ L 0.24-0.36 H (test code = 415) EOSINOPHILS ABSOLUTE COUNT 0.46 K/ L 0.04-0.36 H (BEAKER) (test code = 416) BASOPHILS ABSOLUTE COUNT (BEAKER) 0.12 K/ L 0.01-0.08 H (test code = 417) IMMATURE GRANULOCYTES-RELATIVE 1 % 0-1 PERCENT (BEAKER) (test code = 2801) BASIC METABOLIC [id number] 07:42:41 Test Item Value Reference Range Interpretation Comments SODIUM (BEAKER) 132 meq/L 136-145 L (test code = 381) POTASSIUM (BEAKER) 4.4 meq/L 3.5-5.1 Specimen slightly (test code = 379) hemolyzed CHLORIDE (BEAKER) 94 meq/L 98-107 L (test code = 382) CO2 (BEAKER) (test 22 meq/L 22-29 code = 355) BLOOD UREA NITROGEN 20 mg/dL 7-21 (BEAKER) (test code = 354) CREATININE (BEAKER) 0.68 mg/dL 0.57-1.25 Specimen slightly (test code = 358) hemolyzed GLUCOSE RANDOM 320 mg/dL 70-105 H (BEAKER) (test code = 652) CALCIUM (BEAKER) 9.4 mg/dL 8.4-10.2 (test code = 697) EGFR (BEAKER) (test 85 mL/min/1.73 ESTIMA JEREMIAH GFR IS code = 1092) sq m NOT ACCURATE CREATININE CLEARANCE IN PREDICTING GLOMERULAR FILTRATION RATE . ESTIMATED GFR I S NOT APPLICABLE FOR DIALYSIS PATIEN TS. Suggestion Clerk ID - RAÚL [id number] 07:42:40 Test Item Value Reference Range Interpretation Comments MAGNESIUM (BEAKER) 1.7 mg/dL 1.6-2.6 Specimen slightly (test code = 627) hemolyzed Suggestion Clerk ID - RAÚL [id number] 07:42:40 Test Item Value Reference Range Interpretation Comments PHOSPHORUS (BEAKER) 3.6 mg/dL 2.3-4.7 Specimen slightly (test code = 604) hemolyzed Suggestion Clerk ID Carmenza OLSEN WPOCT-GLUCOSE [id number] 21:45:21 Test Item Value Reference Range Interpretation Comments POC-GLUCOSE METER 331 mg/dL 70-110 H : TESTED A T [facility] 6720 (BEAKER) (test code = [facility], 153) [address]: Suggestion Clerk/Techni kenzie ID = [id number] for Homar Russo POCT-GLUCOSE [id number] 17:30:00 Test Item Value Reference Range Interpretation Comments POC-GLUCOSE METER 299 mg/dL 70-110 H : TESTED A T [facility] 6720 (BEAKER) (test code = [facility], 153) [address]: Suggestion Clerk/Techni kenzie ID = [id number] for An derson, Nadiya POCT-GLUCOSE [id number] 13:29:42 Test Item Value Reference Range Interpretation Comments POC-GLUCOSE METER 352 mg/dL 70-110 H : TESTED A T [facility] 6720 (BEAKER) (test code = [facility], 1538) [address]: Suggestion Clerk/Techni kenzie ID = [id number] for Maxine Mixon POCT-GLUCOSE [id number] 08:55:09 Test Item Value Reference Range Interpretation Comments POC-GLUCOSE METER 304 mg/dL 70-110 H : TESTED A T [facility] 6720 (BEAKER) (test code = [facility], 153) [address]: Suggestion Clerk/Techni kenzie ID = [id number] for An derson, Nadiya CBC W/PLT COUNT & AUTO [id number] 07:29:43 Test Item Value Reference Range Interpretation Comments WHITE BLOOD CELL COUNT (BEAKER) 9.2 K/ L 3.5-10.5 (test code = 775) RED BLOOD CELL COUNT (BEAKER) 3.65 M/ L 3.93-5.22 L (test code = 761) HEMOGLOBIN (BEAKER) (test code = 10.5 GM/DL 11.2-15.7 L 410) HEMATOCRIT (BEAKER) (test code = 31.9 % 34.1-44.9 L 411) MEAN CORPUSCULAR VOLUME (BEAKER) 87.4 fL 79.4-94.8 (test code = 753) MEAN CORPUSCULAR HEMOGLOBIN 28.8 pg 25.6-32.2 (BEAKER) (test code = 751) MEAN CORPUSCULAR HEMOGLOBIN CONC 32.9 GM/DL 32.2-35.5 (BEAKER) (test code = 752) RED CELL DISTRIBUTION WIDTH 13.8 % 11.7-14.4 (BEAKER) (test code = 412) PLATELET COUNT (BEAKER) (test 223 K/CU MM 150-450 code = 756) MEAN PLATELET VOLUME (BEAKER) 9.6 fL 9.4-12.3 (test code = 754) NUCLEATED RED BLOOD CELLS 0 /100 WBC 0-0 (BEAKER) (test code = 413) NEUTROPHILS RELATIVE PERCENT 69 % (BEAKER) (test code = 429) LYMPHOCYTES RELATIVE PERCENT 19 % (BEAKER) (test code = 430) MONOCYTES RELATIVE PERCENT 8 % (BEAKER) (test code = 431) EOSINOPHILS RELATIVE PERCENT 4 % (BEAKER) (test code = 432) BASOPHILS RELATIVE PERCENT 1 % (BEAKER) (test code = 437) NEUTROPHILS ABSOLUTE COUNT 6.32 K/ L 1.56-6.13 H (BEAKER) (test code = 670) LYMPHOCYTES ABSOLUTE COUNT 1.76 K/ L 1.18-3.74 (BEAKER) (test code = 414) MONOCYTES ABSOLUTE COUNT (BEAKER) 0.69 K/ L 0.24-0.36 H (test code = 415) EOSINOPHILS ABSOLUTE COUNT 0.32 K/ L 0.04-0.36 (BEAKER) (test code = 416) BASOPHILS ABSOLUTE COUNT (BEAKER) 0.08 K/ L 0.01-0.08 (test code = 417) IMMATURE GRANULOCYTES-RELATIVE 0 % 0-1 PERCENT (BEAKER) (test code = 2801) BASIC METABOLIC [id number] 05:34:55 Test Item Value Reference Range Interpretation Comments SODIUM (BEAKER) 130 meq/L 136-145 L (test code = 381) POTASSIUM (BEAKER) 4.6 meq/L 3.5-5.1 Specimen slightly (test code = 379) hemolyzed CHLORIDE (BEAKER) 93 meq/L 98-107 L (test code = 382) CO2 (BEAKER) (test 23 meq/L 22-29 code = 355) BLOOD UREA NITROGEN 17 mg/dL 7-21 (BEAKER) (test code = 354) CREATININE (BEAKER) 0.67 mg/dL 0.57-1.25 Specimen slightly (test code = 358) hemolyzed GLUCOSE RANDOM 298 mg/dL 70-105 H (BEAKER) (test code = 652) CALCIUM (BEAKER) 9.3 mg/dL 8.4-10.2 (test code = 697) EGFR (BEAKER) (test 87 mL/min/1.73 ESTIMA JEREMIAH GFR IS code = 1092) sq m NOT ACCURATE CREATININE CLEARANCE IN PREDICTING GLOMERULAR FILTRATION RATE . ESTIMATED GFR I S NOT APPLICABLE FOR DIALYSIS PATIEN TS. Suggestion Clerk ID - RAÚL [id number] 05:34:54 Test Item Value Reference Range Interpretation Comments MAGNESIUM (BEAKER) 1.5 mg/dL 1.6-2.6 L Specimen slightly (test code = 627) hemolyzed Suggestion Clerk ID - RAÚL [id number] 05:34:54 Test Item Value Reference Range Interpretation Comments PHOSPHORUS (BEAKER) 3.2 mg/dL 2.3-4.7 Specimen slightly (test code = 604) hemolyzed Suggestion Clerk ID Carmenza OLSEN WSARS-COV2/RT-PCR ([facility])2021-01-08 00:23:58 Test Item Value Reference Range Interpretation Comments SARS-COV2/RT-PCR (test Negative Not Detected, Negative, code = 4645674) See external report for linked test SARS-COV-2 PERFORMING LAB [facility] (test code = 7240223) Negative result for this test determines that SARS-CoV-2 RNA was not present in the specimen above the Limit of Detection (LOD). However, Negative results do not preclude SARS-CoV-2 infection and should not be used as the sole basis for treatment or patient management decisions. Negative results mustbe combined with clinical observations, patient history, and epidemiological information. A false negative result may occur if a specimen is improperly collected, transported or handled. A false negative result should be considered if patient's recent exposures or clinical presentation indicate that COVID-19 (SARS-CoV-2) is likely and diagnostic tests for other causes of illness are negative. Re-testing should be considered in cases of suspected false negatives.The limit of detection for this assay is 800 copies/mL.This SARS CoV-2 test is a real-time RT-PCR test intended for the qualitative detection of nucleic acid from SARS-CoV-2 in a nasopharyngeal swab specimen collected from individuals susp ected of COVID-19 by their healthcare provider.This test has not been Food and Drug Administration (FDA) cleared or approved. This is a modified version of an approved Emergency Use Authorization (EUA) and is in the process of review by the FDA. Once authorized by the FDA, the issued EUA will be effective until the declaration that circumstances exist justifying the authorization of the emergency use of in vitro diagnostic tests for detection and/or diagnosis of COVID-19 is terminated under Section 564(b)(2) of the Act or the EUA is revoked under Section 564(g) of the Act.Fact Sheet for Healthcare Providers:https://www.[employer]/sites/default/files/product/documents/Fact_Shee r_QD_Gkugkafcb_Ctzq_OWBQ-WlD-9.pdfFact Sheet for Healthcare Patients:https://www.[employer]/sites/default/files/product/ documents/Fbhe_Qsbyz_Kzllwofo_Oztc_OAAJ-ZjK-8.pdfPerforming Laboratory:[facility], [place] [id number] METER 2021-01-07 20:55:22 Test Item Value Reference Range Interpretation Comments POC-GLUCOSE METER 307 mg/dL 70-110 H : TESTED A T [facility] 67[address] (RADHA) (test code = [place], 1538) [address]: Suggestion Clerk/Techni kenzie ID = [id number] for Holland hamlin (contract)Geraldo POCT-GLUCOSE [id number] 18:16:42 Test Item Value Reference Range Interpretation Comments POC-GLUCOSE METER 343 mg/dL 70-110 H : TESTED A T [facility] 67[address] (BEAKER) (test code = [place] Wil[place] [facility], 1538) [address]: Suggestion Clerk/Techni kenzie ID = [id number] for BOY FISCHER POCT-GLUCOSE [id number] 11:38:09 Test Item Value Reference Range Interpretation Comments POC-GLUCOSE METER 307 mg/dL 70-110 H : TESTED A T [facility] 67[address] (BEAKER) (test code [facility], = 1538) [address]: Suggestion Clerk/Techni kenzie ID = [id number] for Kostas-Lefty s Marie POCT-GLUCOSE [id number] 08:02:28 Test Item Value Reference Range Interpretation Comments POC-GLUCOSE METER 237 mg/dL 70-110 H : TESTED A T [facility] 6720 (BEAKER) (test code [facility], = 1538) [address]: Suggestion Clerk/Techni kenzie ID = [id number] for Kostas-Marshallga s, Marie [id number] 03:44:24 Test Item Value Reference Range Interpretation Comments PHOSPHORUS (BEAKER) (test code = 3.9 mg/dL 2.3-4.7 604) Suggestion Clerk ID - TRISH MBASIC METABOLIC [id number] 03:44:23 Test Item Value Reference Range Interpretation Comments SODIUM (BEAKER) 136 meq/L 136-145 (test code = 381) POTASSIUM (BEAKER) 4.1 meq/L 3.5-5.1 (test code = 379) CHLORIDE (BEAKER) 97 meq/L 98-107 L (test code = 382) CO2 (BEAKER) (test 28 meq/L 22-29 code = 355) BLOOD UREA NITROGEN 14 mg/dL 7-21 (BEAKER) (test code = 354) CREATININE (BEAKER) 0.71 mg/dL 0.57-1.25 (test code = 358) GLUCOSE RANDOM 213 mg/dL 70-105 H (BEAKER) (test code = 652) CALCIUM (BEAKER) 9.4 mg/dL 8.4-10.2 (test code = 697) EGFR (BEAKER) (test 81 mL/min/1.73 ESTIMA JEREMIAH GFR IS code = 1092) sq m NOT ACCURATE CREATININE CLEARANCE IN PREDICTING GLOMERULAR FILTRATION RATE . ESTIMATED GFR I S NOT APPLICABLE FOR DIALYSIS PATIEN TS. Suggestion Clerk ID - TRISH [id number] 03:44:23 Test Item Value Reference Range Interpretation Comments MAGNESIUM (BEAKER) (test code = 1.7 mg/dL 1.6-2.6 627) Suggestion Clerk ID - TRISH MCBC W/PLT COUNT & AUTO [id number] 03:27:18 Test Item Value Reference Range Interpretation Comments WHITE BLOOD CELL COUNT (BEAKER) 10.4 K/ L 3.5-10.5 (test code = 775) RED BLOOD CELL COUNT (BEAKER) 4.04 M/ L 3.93-5.22 (test code = 761) HEMOGLOBIN (BEAKER) (test code = 11.4 GM/DL 11.2-15.7 410) HEMATOCRIT (BEAKER) (test code = 35.9 % 34.1-44.9 411) MEAN CORPUSCULAR VOLUME (BEAKER) 88.9 fL 79.4-94.8 (test code = 753) MEAN CORPUSCULAR HEMOGLOBIN 28.2 pg 25.6-32.2 (BEAKER) (test code = 751) MEAN CORPUSCULAR HEMOGLOBIN CONC 31.8 GM/DL 32.2-35.5 L (BEAKER) (test code = 752) RED CELL DISTRIBUTION WIDTH 14.1 % 11.7-14.4 (BEAKER) (test code = 412) PLATELET COUNT (BEAKER) (test 298 K/CU MM 150-450 code = 756) MEAN PLATELET VOLUME (BEAKER) 9.7 fL 9.4-12.3 (test code = 754) NUCLEATED RED BLOOD CELLS 0 /100 WBC 0-0 (BEAKER) (test code = 413) NEUTROPHILS RELATIVE PERCENT 67 % (BEAKER) (test code = 429) LYMPHOCYTES RELATIVE PERCENT 20 % (BEAKER) (test code = 430) MONOCYTES RELATIVE PERCENT 8 % (BEAKER) (test code = 431) EOSINOPHILS RELATIVE PERCENT 3 % (BEAKER) (test code = 432) BASOPHILS RELATIVE PERCENT 1 % (BEAKER) (test code = 437) NEUTROPHILS ABSOLUTE COUNT 7.00 K/ L 1.56-6.13 H (BEAKER) (test code = 670) LYMPHOCYTES ABSOLUTE COUNT 2.11 K/ L 1.18-3.74 (BEAKER) (test code = 414) MONOCYTES ABSOLUTE COUNT (BEAKER) 0.83 K/ L 0.24-0.36 H (test code = 415) EOSINOPHILS ABSOLUTE COUNT 0.33 K/ L 0.04-0.36 (BEAKER) (test code = 416) BASOPHILS ABSOLUTE COUNT (BEAKER) 0.07 K/ L 0.01-0.08 (test code = 417) IMMATURE GRANULOCYTES-RELATIVE 0 % 0-1 PERCENT (BEAKER) (test code = 2801) POCT-GLUCOSE [id number] 03:23:46 Test Item Value Reference Range Interpretation Comments POC-GLUCOSE METER 180 mg/dL 70-110 H : TESTED A T [facility] 6720 (BEAKER) (test code = [facility], 1538) 77727: Suggestion Clerk/Techni kenzie ID = [id number] for NICOLE POWERS POCT-GLUCOSE [id number] 22:13:28 Test Item Value Reference Range Interpretation Comments POC-GLUCOSE METER 187 mg/dL 70-110 H : TESTED A T [facility] 6720 (BEAKER) (test code = [facility], 1538) 41618: Suggestion Clerk/Techni kenzie ID = [id number] for Oneyda Salas MR, BRAIN, WITHOUT [id number] 20:05:00Reason for exam:->Ischemic Stroke EvaluationNAT[facility]IDAD [facility]ENTERName: ELANABAKARI : 1950 Sex: FFINAL REPORT MR, BRAIN, WITHOUT CONTRAST INDICATION: Unlisted Reason for ExamIschemic Stroke Evaluation TECHNIQUE: Multiplanar, multisequence MR imaging of the brain was obtained. COMPARISON: None FINDINGS:Brain parenchyma is normal in morphology. 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 Midline structures are normally developed. No restricted diffusion to suggest recent ischemic insult. No abnormal susceptibility. Scattered T2/FLAIR hyperintense foci within the periventricular and subcortical white matter are nonspecific, however, statistically represent chronic microvascular ischemic changes. No hydrocephalus. Orbits are within normal l imits. No obstructive paranasal sinus disease. IMPRESSION: No acute intracranial findings Signed: Dara Wyatt MDReport Verified Date/Time: 01/06/2021 20:05:22 URINALYSIS W/ REFLEX URINE [id number] 14:32:30 Test Item Value Reference Range Interpretation Comments COLOR (BEAKER) (test code = 470) Yellow CLARITY (BEAKER) (test code = Hazy 469) SPECIFIC GRAVITY UA (BEAKER) 1.026 1.001-1.035 (test code = 468) PH UA (BEAKER) (test code = 467) 5.5 5.0-8.0 PROTEIN UA (BEAKER) (test code = 20 mg/dL Negative A 464) GLUCOSE UA (BEAKER) (test code = >1000 mg/dL Negative A 365) KETONES UA (BEAKER) (test code = 60 mg/dL Negative A 371) BILIRUBIN UA (BEAKER) (test code Negative Negative = 462) BLOOD UA (BEAKER) (test code = Large Negative A 461) NITRITE UA (BEAKER) (test code = Positive Negative A 465) LEUKOCYTE ESTERASE UA (BEAKER) Large Negative A (test code = 466) UROBILINOGEN UA (BEAKER) (test 0.2 mg/dL 0.2-1.0 code = 463) RBC UA (BEAKER) (test code = 519) 11 /HPF WBC UA (BEAKER) (test code = 520) 92 /HPF BACTERIA (BEAKER) (test code = Rare 517) MUCUS (BEAKER) (test code = 1574) Rare SQUAMOUS EPITHELIAL (BEAKER) 1 /HPF (test code = 516) CRYSTALS, URINE (BEAKER) (test None Seen code = 1521) SOURCE(BEAKER) (test code = 2795) Suggestion Clerk ID - [auto]Suggestion Clerk ID - [id number] 13:15:40 Test Item Value Reference Range Interpretation Comments RPR SCREEN (BEAKER) (test code = Nonreactive Nonreactive 420) POCT-GLUCOSE [id number] 12:47:57 Test Item Value Reference Range Interpretation Comments POC-GLUCOSE METER 244 mg/dL 70-110 H : TESTED A T [facility] 6720 (BEAKER) (test code = [facility], 1538) 10087: Suggestion Clerk/Techni kenzie ID = [id number] for Ar duanerong Latesa POCT-GLUCOSE [id number] 07:15:12 Test Item Value Reference Range Interpretation Comments POC-GLUCOSE METER 142 mg/dL 70-110 H : TESTED A T [facility] 6720 (BEAKER) (test code = [facility], 1538) 50230: Suggestion Clerk/Techni kenzie ID = [id number] for Inge Booker CT, BRAIN, WITHOUT [id number] 07:11:00Unlisted Reason for Exam - Click Yes and Enter Reason Below->No [facility] : 1950 Sex: FFINAL REPORT CT, CAROTID, ANGIO, CT, CTANGIO BRAIN, CT, BRAIN, WITHOUT CONTRASTBRAIN CT WITHOUT CONTRAST INDICATION: Neuro deficit, acute, stroke suspected COMPARISON: None TECHNIQUE:Rapid acquisition spiral images were obtained between the aortic arch and the cranial vertex during intravenous contrast infusion to reconstruct axial images and angiographic 3D maximum inte nsity projections (MIP). 3-D volumetric reformatted images were created at a dedicated workstation. Precontrast images of the brain were also obtained. Stenosis evaluation reported in compliance with NASCET criteria. DOSE REDUCTION: Dose modulation, iterative reconstruction, and/or weight-based adjustment of the mA/kV was utilized to reduce the radiation dose to as low as reasonably achievable. FINDINGS:CT BRAIN:Mild volume loss is present. Remote ischemic changes are noted in the anterior left cabrales radiata. Chronic white matter changes are present bilaterally, likely microvascular given patient's demographics. No midline shift or hydrocephalus. There is no visible lundberg-white disruption. Osseous structures are intact. CTA BRAIN:Circumferential calcifications are present in the intracranial internal carotid arteries at the petrous and cavernous segments. Middle cerebral and anterior cerebral artery branches are normally perfused. Anterior communicating artery is atretic. The basilar artery isintact. Posterior circulation is unimpaired. 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 Great vessel origins are patent. Vertebral artery origins are patent. Left vertebral artery is dominant. There is no flow limitation in the major cervical vessels. Minimal atherosclerotic disease is present at the bifurcations but without focal narrowing. Nonvascular findings:No acute findings within the limits of arterial phase imaging. IMPRESSION: Chronic involutional and ischemic changes without discernible acute intracranial abnormality. No flow limiting stenosis or major branch occlusion in the intracranial circulation. Signed: JR Figueroa Robert MDReport Verified Date/Time: 01/06/2021 07:11:22 Reading Location: [address] Neuro Reading Room [facility] [id number] 07:11:00Unlisted Reason for Exam - Click Yes and Enter Reason Below->No [facility] : 1950 Sex: FFINAL REPORT CT, CAROTID, ANGIO, CT, CTANGIO BRAIN, CT, BRAIN, WITHOUT CONTRASTBRAIN CT WITHOUT CONTRAST INDICATION: Neuro deficit, acute, stroke suspected COMPARISON: None TECHNIQUE:Rapid acquisition spiral images were obtained between the aortic arch and the cranial vertex during intravenous contrast infusion to reconstruct axial images and angiographic 3D maximum inte nsity projections (MIP). 3-D volumetric reformatted images were created at a dedicated workstation. Precontrast images of the brain were also obtained. Stenosis evaluation reported in compliance with NASCET criteria. DOSE REDUCTION: Dose modulation, iterative reconstruction, and/or weight-based adjustment of the mA/kV was utilized to reduce the radiation dose to as low as reasonably achievable. FINDINGS:CT BRAIN:Mild volume loss is present. Remote ischemic changes are noted in the anterior left cabrales radiata. Chronic white matter changes are present bilaterally, likely microvascular given patient's demographics. No midline shift or hydrocephalus. There is no visible lundberg-white disruption. Osseous structures are intact. CTA BRAIN:Circumferential calcifications are present in the intracranial internal carotid arteries at the petrous and cavernous segments. Middle cerebral and anterior cerebral artery branches are normally perfused. Anterior communicating artery is atretic. The basilar artery isintact. Posterior circulation is unimpaired. 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 Great vessel origins are patent. Vertebral artery origins are patent. Left vertebral artery is dominant. There is no flow limitation in the major cervical vessels. Minimal atherosclerotic disease is present at the bifurcations but without focal narrowing. Nonvascular findings:No acute findings within the limits of arterial phase imaging. IMPRESSION: Chronic involutional and ischemic changes without discernible acute intracranial abnormality. No flow limiting stenosis or major branch occlusion in the intracranial circulation. Signed: JR Figueroa Robert MDReport Verified Date/Time: 01/06/2021 07:11:22 Reading Location: [facility] B[facility] C013V Neuro Reading Room CT, CAROTID, [id number] 07:11:00Unlisted Reason for Exam - Click Yes and Enter Reason Below->No [facility]: [facility]AK[facility]I HU[facility]RON : 1950 Sex: FFINAL REPORT CT, CAROTID, ANGIO, CT, CTANGIO BRAIN, CT, BRAIN, WITHOUT CONTRASTBRAIN CT WITHOUT CONTRAST INDICATION: Neuro deficit, acute, stroke suspected COMPARISON: None TECHNIQUE:Rapid acquisition spiral images were obtained between the aortic arch and the cranial vertex during intravenous contrast infusion to reconstruct axial images and angiographic 3D maximum inte nsity projections (MIP). 3-D volumetric reformatted images were created at a dedicated workstation. Precontrast images of the brain were also obtained. Stenosis evaluation reported in compliance with NASCET criteria. DOSE REDUCTION: Dose modulation, iterative reconstruction, and/or weight-based adjustment of the mA/kV was utilized to reduce the radiation dose to as low as reasonably achievable. FINDINGS:CT BRAIN:Mild volume loss is present. Remote ischemic changes are noted in the anterior left cabrales radiata. Chronic white matter changes are present bilaterally, likely microvascular given patient's demographics. No midline shift or hydrocephalus. There is no visible lundberg-white disruption. Osseous structures are intact. CTA BRAIN:Circumferential calcifications are present in the intracranial internal carotid arteries at the petrous and cavernous segments. Middle cerebral and anterior cerebral artery branches are normally perfused. Anterior communicating artery is atretic. The basilar artery isintact. Posterior circulation is unimpaired. 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 Great vessel origins are patent. Vertebral artery origins are patent. Left vertebral artery is dominant. There is no flow limitation in the major cervical vessels. Minimal atherosclerotic disease is present at the bifurcations but without focal narrowing. Nonvascular findings:No acute findings within the limits of arterial phase imaging. IMPRESSION: Chronic involutional and ischemic changes without discernible acute intracranial abnormality. No flow limiting stenosis or major branch occlusion in the intracranial circulation. Signed: JR Henry, Adriana WESLEYeport Verified Date/Time: 01/06/2021 07:11:22 Reading Location: [facility] C013V Neuro Reading Room CALCIUM, [id number] 06:41:59 Test Item Value Reference Range Interpretation Comments CALCIUM IONIZED (BEAKER) (test 1.14 mmol/L 1.12-1.27 code = 698) PH, BLOOD (BEAKER) (test code = 7.43 1810) BASIC METABOLIC [id number] 05:42:30 Test Item Value Reference Range Interpretation Comments SODIUM (BEAKER) 134 meq/L 136-145 L (test code = 381) POTASSIUM (BEAKER) 3.9 meq/L 3.5-5.1 Specimen slightly (test code = 379) hemolyzed CHLORIDE (BEAKER) 97 meq/L 98-107 L (test code = 382) CO2 (BEAKER) (test 24 meq/L 22-29 code = 355) BLOOD UREA NITROGEN 16 mg/dL 7-21 (BEAKER) (test code = 354) CREATININE (BEAKER) 0.66 mg/dL 0.57-1.25 Specimen slightly (test code = 358) hemolyzed GLUCOSE RANDOM 173 mg/dL 70-105 H (BEAKER) (test code = 652) CALCIUM (BEAKER) 9.0 mg/dL 8.4-10.2 (test code = 697) EGFR (BEAKER) (test 88 mL/min/1.73 ESTIMA JEREMIAH GFR IS code = 1092) sq m NOT ACCURATE CREATININE CLEARANCE IN PREDICTING GLOMERULAR FILTRATION RATE . ESTIMATED GFR I S NOT APPLICABLE FOR DIALYSIS PATIEN TS. Suggestion Clerk ID - TRISH MLIPID [id number] 05:42:30 Test Item Value Reference Range Interpretation Comments TRIGLYCERIDES (BEAKER) 123 mg/dL Speci men slightly (test code = 540) hemolyzed CHOLESTEROL (BEAKER) 101 mg/dL Specime n slightly (test code = 631) hemolyzed HDL CHOLESTEROL (BEAKER) 41 mg/dL (test code = 976) LDL CHOLESTEROL 35 mg/dL CALCULATED (BEAKER) (test code = 633) Triglyceride Reference Range: Low Risk <150 Borderline 150-199 High Risk 200-499 Very High Risk >=500Cholesterol Reference Range: Low Risk <200 Borderline 200-239 High Risk >240HDL Cholesterol Reference Range: Low Risk >=60 High Risk <40LDL Cholesterol Reference Range: Optimal <100 Near Optimal 100-129 Borderline 130-159 High 160-189 Very High >=190 Suggestion Clerk ID - TRISH [id number] 05:42:29 Test Item Value Reference Range Interpretation Comments MAGNESIUM (BEAKER) 2.4 mg/dL 1.6-2.6 Specimen slightly (test code = 627) hemolyzed Suggestion Clerk ID - TRISH [id number] 05:42:29 Test Item Value Reference Range Interpretation Comments PHOSPHORUS (BEAKER) 4.5 mg/dL 2.3-4.7 Specimen slightly (test code = 604) hemolyzed Suggestion Clerk ID - TRISH MCBC W/PLT COUNT & AUTO [id number] 05:01:08 Test Item Value Reference Range Interpretation Comments WHITE BLOOD CELL COUNT (BEAKER) 12.4 K/ L 3.5-10.5 H (test code = 775) RED BLOOD CELL COUNT (BEAKER) 3.92 M/ L 3.93-5.22 L (test code = 761) HEMOGLOBIN (BEAKER) (test code = 11.2 GM/DL 11.2-15.7 410) HEMATOCRIT (BEAKER) (test code = 34.1 % 34.1-44.9 411) MEAN CORPUSCULAR VOLUME (BEAKER) 87.0 fL 79.4-94.8 (test code = 753) MEAN CORPUSCULAR HEMOGLOBIN 28.6 pg 25.6-32.2 (BEAKER) (test code = 751) MEAN CORPUSCULAR HEMOGLOBIN CONC 32.8 GM/DL 32.2-35.5 (BEAKER) (test code = 752) RED CELL DISTRIBUTION WIDTH 13.7 % 11.7-14.4 (BEAKER) (test code = 412) PLATELET COUNT (BEAKER) (test 287 K/CU MM 150-450 code = 756) MEAN PLATELET VOLUME (BEAKER) 9.7 fL 9.4-12.3 (test code = 754) NUCLEATED RED BLOOD CELLS 0 /100 WBC 0-0 (BEAKER) (test code = 413) NEUTROPHILS RELATIVE PERCENT 76 % (BEAKER) (test code = 429) LYMPHOCYTES RELATIVE PERCENT 15 % (BEAKER) (test code = 430) MONOCYTES RELATIVE PERCENT 7 % (BEAKER) (test code = 431) EOSINOPHILS RELATIVE PERCENT 2 % (BEAKER) (test code = 432) BASOPHILS RELATIVE PERCENT 0 % (BEAKER) (test code = 437) NEUTROPHILS ABSOLUTE COUNT 9.38 K/ L 1.56-6.13 H (BEAKER) (test code = 670) LYMPHOCYTES ABSOLUTE COUNT 1.87 K/ L 1.18-3.74 (BEAKER) (test code = 414) MONOCYTES ABSOLUTE COUNT (BEAKER) 0.85 K/ L 0.24-0.36 H (test code = 415) EOSINOPHILS ABSOLUTE COUNT 0.19 K/ L 0.04-0.36 (BEAKER) (test code = 416) BASOPHILS ABSOLUTE COUNT (BEAKER) 0.05 K/ L 0.01-0.08 (test code = 417) IMMATURE GRANULOCYTES-RELATIVE 1 % 0-1 PERCENT (BEAKER) (test code = 2801) RAD, SHOULDER, COMPLETE (MIN 2 VIEWS), [id number] 03:48:00Reason for exam:- >R shoulder fracture [facility] : 1950 Sex: FFINAL REPORT CLINICAL HISTORY: Right shoulder fracture COMPARISON: None. FINDINGS: 2 images of the right shoulder are submitted. The examination is limited by patient body habitus and nonstandard projection. There is a subtle, minimally displaced fracture of the lateral humeral head. The humeral head appears inferiorly subluxed related to the bony glenoid, possibly secondary to an associated shoulder joint effusion. Dislocation should be excluded clinically. This can be evaluated with CT of the shoulder, as indicated. There is no radiopaque foreign body. The visualized right lung is clear. Signed: Noel Esparza MDReport Verified Date/Time: 01/06/2021 03:48:41 E lectronically signed by: NOEL ESPARZA M.D. on 01/06/2021 03:48 AMMAGNESIUM 2021-01-06 01:47:26 Test Item Value Reference Range Interpretation Comments MAGNESIUM (BEAKER) 1.7 mg/dL 1.6-2.6 Specimen slightly (test code = 627) hemolyzed Suggestion Clerk ID - TRISH [id number] 01:47:26 Test Item Value Reference Range Interpretation Comments POTASSIUM (BEAKER) 4.2 meq/L 3.5-5.1 Specimen slightly (test code = 379) hemolyzed Suggestion Clerk ID - TRISH MPOCT-GLUCOSE [id number] 22:16:03 Test Item Value Reference Range Interpretation Comments POC-GLUCOSE METER 215 mg/dL 70-110 H : TESTED A T [facility] 6720 (BEAKER) (test code = [place], 1538) [address]: Suggestion Clerk/Techni kenzie ID = [id number] for Andrei dash Inge TSH/FREE T4 IF [id number] 20:35:33 Test Item Value Reference Range Interpretation Comments THYROID STIMULATING HORMONE 1.104 uIU/mL 0.350-4.940 (BEAKER) (test code = 772) Suggestion Clerk ID - ADMINVITAMIN B12 AND [id number] 20:35:33 Test Item Value Reference Range Interpretation Comments VITAMIN B12 756 pg/mL 213-816 (BEAKER) (test code = 774) FOLATE (BEAKER) 13.50 ng/mL See_Comment [Automated message] (test code = 362) The system which generated this result transmitted ref erence range: >=7.00. The reference range was not used to interpr et this result as normal/abnormal . Suggestion Clerk ID - ADMINHEMOGLOBIN [id number] 20:20:55 Test Item Value Reference Range Interpretation Comments HEMOGLOBIN A1C (BEAKER) (test code = 9.0 % 4.3-6.1 H 368) HIGH SENSITIVITY TROPONIN [id number] 20:05:30 Test Item Value Reference Range Interpretation Comments HIGH SENSITIVITY < pg/ml See_Comment [Automated message] TROPONIN I (test code = The system which [id number]) generated this result transmitted ref erence range: <=17. Th e reference range was not used to interpr et this result as normal/abnormal . Suggestion Clerk ID - ADMINThe CAR LO[employer]ER STAT High Sensitivity Troponin-I results should be used in conjunction with other diagnostic information such as ECG, clinical observations and information, and patientsymptoms to aid in the diagnosis of MO. [id number] 20:01:52 Test Item Value Reference Range Interpretation Comments PHOSPHORUS (BEAKER) (test code = 7.2 mg/dL 2.3-4.7 H 604) Suggestion Clerk ID - [id number] 20:01:51 Test Item Value Reference Range Interpretation Comments MAGNESIUM (BEAKER) (test code = 1.1 mg/dL 1.6-2.6 L 627) Suggestion Clerk ID - ADMINBASIC METABOLIC [id number] 20:01:50 Test Item Value Reference Range Interpretation Comments SODIUM (BEAKER) 133 meq/L 136-145 L (test code = 381) POTASSIUM (BEAKER) 3.1 meq/L 3.5-5.1 L (test code = 379) CHLORIDE (BEAKER) 96 meq/L 98-107 L (test code = 382) CO2 (BEAKER) (test 24 meq/L 22-29 code = 355) BLOOD UREA NITROGEN 15 mg/dL 7-21 (BEAKER) (test code = 354) CREATININE (BEAKER) 0.63 mg/dL 0.57-1.25 (test code = 358) GLUCOSE RANDOM 164 mg/dL 70-105 H (BEAKER) (test code = 652) CALCIUM (BEAKER) 8.4 mg/dL 8.4-10.2 (test code = 697) EGFR (BEAKER) (test 93 mL/min/1.73 ESTIMA JEREMIAH GFR IS code = 1092) sq m NOT ACCURATE CREATININE CLEARANCE IN PREDICTING GLOMERULAR FILTRATION RATE . ESTIMATED GFR I S NOT APPLICABLE FOR DIALYSIS PATIEN TS. Suggestion Clerk ID - ADMINCBC W/PLT COUNT & AUTO [id number] 19:37:16 Test Item Value Reference Range Interpretation Comments WHITE BLOOD CELL COUNT (BEAKER) 17.7 K/ L 3.5-10.5 H (test code = 775) RED BLOOD CELL COUNT (BEAKER) 4.26 M/ L 3.93-5.22 (test code = 761) HEMOGLOBIN (BEAKER) (test code = 12.3 GM/DL 11.2-15.7 410) HEMATOCRIT (BEAKER) (test code = 36.9 % 34.1-44.9 411) MEAN CORPUSCULAR VOLUME (BEAKER) 86.6 fL 79.4-94.8 (test code = 753) MEAN CORPUSCULAR HEMOGLOBIN 28.9 pg 25.6-32.2 (BEAKER) (test code = 751) MEAN CORPUSCULAR HEMOGLOBIN CONC 33.3 GM/DL 32.2-35.5 (BEAKER) (test code = 752) RED CELL DISTRIBUTION WIDTH 13.4 % 11.7-14.4 (BEAKER) (test code = 412) PLATELET COUNT (BEAKER) (test 285 K/CU MM 150-450 code = 756) MEAN PLATELET VOLUME (BEAKER) 9.6 fL 9.4-12.3 (test code = 754) NUCLEATED RED BLOOD CELLS 0 /100 WBC 0-0 (BEAKER) (test code = 413) NEUTROPHILS RELATIVE PERCENT 87 % (BEAKER) (test code = 429) LYMPHOCYTES RELATIVE PERCENT 7 % (BEAKER) (test code = 430) MONOCYTES RELATIVE PERCENT 4 % (BEAKER) (test code = 431) EOSINOPHILS RELATIVE PERCENT 1 % (BEAKER) (test code = 432) BASOPHILS RELATIVE PERCENT 0 % (BEAKER) (test code = 437) NEUTROPHILS ABSOLUTE COUNT 15.45 K/ L 1.56-6.13 H (BEAKER) (test code = 670) LYMPHOCYTES ABSOLUTE COUNT 1.19 K/ L 1.18-3.74 (BEAKER) (test code = 414) MONOCYTES ABSOLUTE COUNT (BEAKER) 0.78 K/ L 0.24-0.36 H (test code = 415) EOSINOPHILS ABSOLUTE COUNT 0.15 K/ L 0.04-0.36 (BEAKER) (test code = 416) BASOPHILS ABSOLUTE COUNT (BEAKER) 0.05 K/ L 0.01-0.08 (test code = 417) IMMATURE GRANULOCYTES-RELATIVE 1 % 0-1 PERCENT (BEAKER) (test code = 2801)
== END 2021-01-05 18:24 | disposition short-term general hospital (02) ==
LOC: ER 16:22
PROC: 05HP33Z Insertion of Infusion Device into Right External Jugular Vein, Percutaneous Approach (ICD-10-PCS; principal; 2021-01-05)
DX: I63.9 Cerebral infarction, unspecified (principal); R47.01 Aphasia; I10 Essential (primary) hypertension; R29.704 NIHSS score 4; E66.09 Other obesity due to excess calories; E11.8 Type 2 diabetes mellitus with unspecified complications; Z20.822 Contact with and (suspected) exposure to COVID-19; Z88.5 Allergy status to narcotic agent; Z88.8 Allergy status to other drugs, medicaments and biological substances; Z91.048 Other nonmedicinal substance allergy status
CPT/HCPCS: 92977; 93005; 85025; 80048; 36415; 83735; 85610; 82947; 80076; 84484; 83880; 70450; 71045; 96375; 96374; 99285; 36569; U0003; J2997; J7050; J2405

== ENCOUNTER 2021-01-12 08:43 | Inpatient (IN) | payer OTHER ==
--- NOTE | 2021-01-12 11:45 | R.PREADM ---
PRE-ADMISSION SCREENING FORM SCREENING DATE AND TIME 01/12/2021 08:54 (SAFETY SPEC) ANTICIPATED REHAB ADMISSION DATE 01/14/2021 REFERRING FACILITY [facility] REFERRAL DATE AND TIME 01/12/2021 08:54 (SAFETY SPEC) REFERRAL ROOM# 22T Previous Rehabilitation(s): No. 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 Lauren Mathews REFERRING PHYSICIAN Dr. Reza Avelar REHAB FACILITY [facility] CLINICAL LIAISON Wen Christianson PHYSICIAN REVIEWER Dr. Prince Ivey M.D. MR# [id number] NAME FELA AYOUB ADDRESS [address] [place] [address] [address] [place] [address] PHONE [facility] [id number] DATE OF 1950 AGE 70 SSN# [id number] GENDER female MARITAL STATUS RACE white ADMIT FROM 02 - [facility] PRE-HOSPITAL LIVING SETTING 01 - Home (private home/apt. board/care, assisted living, usp, transitional living) HOME TYPE AND DETAILS Type of home: single family house # of steps to enter the residence: 2 # of steps within the residence: 0 # of levels in the residence: 1 PRE-HOSPITAL LIVING WITH Family/Relatives FAMILY SUPPORT Yes FAMILY SUPPORT DETAILS Pt lives with her . PRIMARY FAMILY CONTACT NAME Linwood Jaeger PRIMARY FAMILY CONTACT PHONE PRIMARY FAMILY CONTACT RELATIONSHIP Spouse PHONE PRIMARY FAMILY CONTACT ON ADM.? no IS PRIMARY FAMILY CONTACT AUTH. REP.? no 1ST EMERGENCY CONTACT Linwood Jaeger 1ST CONTACT PHONE 1ST CONTACT RELATIONSHIP Spouse PHONE 1ST CONTACT ON ADM. no IS 1ST CONTACT AUTH. REP.? no 2ND EMERGENCY CONTACT Joao Jaeger 2ND CONTACT PHONE 2ND CONTACT RELATIONSHIP Daughter PHONE 2ND CONTACT ON ADM.? no PATIENT EMPLOYMENT STATUS Retired (for age) PATIENT EMPLOYER No Employer PAYOR INFORMATION: 1ST PAYOR NAME Medicare 1ST PAYOR PHONE [phone] 1ST PAYOR 2ND PAYOR NAME [facility] MEDICARE SUP 2ND PAYOR PHONE [phone] 2ND PAYOR INJURY/ILLNESS DUE TO ACCIDENT? No ANOTHER [employer]IANCE PARTY RESPONSIBLE? No PRIMARY REHAB/ACUTE DIAGNOSIS: L CVA ONSET DATE 01/05/2021 REHAB IMPAIRMENT CATEGORY (CARLOS): 01 Stroke (STR) MEETS 60% rule AFFECTED EXTREMITIES: RLE and RUE PRIMARY DIAGNOSIS-RELATED SURGERIES: No surgeries related to the primary diagnosis were performed. INTERVENTIONS: - CVA/TIA Neuro checks Medications Spasticity/Flaccidity management VS - R Shoulder Fx Educate on proper WB status as per doctors orders to prevent worsening fx. - Hypertension Medications - Diabetes Mellitus Diabetes Management education RISK FOR COMPLICATIONS: - Aspiration Clinical staff will monitor for coughing, drooling, congestion Nursing will monitor patient swallowing during meals Speech will evaluate swallowing and dysphagia - Fx Educate on prevention of worsening R shoulder fx - CVA Monitor signs and symptoms of stroke - UTI Monitor for frequency, burning, discomfort, or incontinence - DVT Routine checks/assessments of pt JEREMIAH hose; sequential compression device as needed/prescribed - Skin Breakdown Nursing will assess skin daily using assessment tool and will place on Skin Breakdown Precautions as Indicated per protocol - Pain Clinical staff will assess patient's pain level every shift per protocol to monitor for pain manageme nt effectiveness Educate patient on pain management strategies Medications will be given and the pain level reassessed. Clinical Staff may employ other methods such as: massage, distraction, decrease stimulus, etc. as needed - Falls Educated pt on fall prevention strategies to reduce/eliminate fall risk Patient will be evaluated for Fall Precautions and will be placed on Fall Precautions as indicated pe r protocol. - Impaired Safety Educate patient on safety awareness strategies. Educate patient on safety hazards - Bleeding Monitor lab values - Limb Ischemia Assess circulation each shift Report any changes to MD Carmenza Dinh Monitor lab values - Anxiety Clinical staff will take time to explain any procedures, POC, and course of current tx. SUMMARY OF ACUTE HOSPITALIZATION: On 01/05/2021 Pt. presented to [facility] with sudden onse t of right-side weakness. Pt. is a 70 yo white female. On 01/05/2021 she was admitted to [facility] with diagnosi s L CVA. Her impairment category is Stroke 01 - Right Body (Left Brain) (01.2). Pre-morbidly, Pt. was independent/mod-I in Locomotion, Safety Awareness, Social Cognition, Balance, T ransfers Control, Sphincter Control, Self-Care, Communication, and Endurance; and she had good Locomo tion, Safety Awareness, Balance, Social Cognition, Transfers Control, Sphincter Control, Self-Care, C ommunication, and Endurance. Currently, she has deficits of Locomotion, Safety Awareness, Social Cognition, Balance, Transfers Con trol, Self-Care, Communication, and Endurance. Pt. is now referred to [facility] for acute in-patient rehabilitation in order to maximize patient's functional independence in activities of daily living, strength, ROM, and mobi lity. Patient has realistic goal of being discharged at assistance level Sup-IND to reside at Home with Fa shelby/Relatives. Mrs. Fela Ayoub is a 70 yo white female that lives at home with her . Mrs. Chahal reports being independent with all tasks without AD/E prior to hospitalization. Mrs. Chahal sought medical a ttention at [facility] with a recent R shoulder fx (Monday) and after she started experiencing diffic ulty with speech (inability to say what she wanted to say and dysarthria), R facial droop, and confu arvin on the afternoon of 01/05/2021. When Mrs. Chahal was taken to the OSH by her she was hype rtensive at 220/94, BG 138, and NIHSS recorded 3. Mrs. Chahal received tPA at 6 p.m. and then transfe rred to [facility]. Upon arrival to the medical morven, Mrs. Chahal was hypertensi ve to 190's and the NIHSS was 0. Mrs. Chahal endorsed numbness in her feet (chronic) and blurred vis ion in both eyes. Mrs. Chahal's diagnostic imaging resulted negative for a stroke, likely due to tPA provided. Mrs. Chahal has a PMH of: DMII, HTN, anxiety, blurred vision, and B neuropathy, hypercholes terolemia, and squamous cell carcinoma. Mrs. Chahal requires intensive acute inpatient rehab approach to reduce caregiver burden from of 80 yo with his own physical ailments, maximize independen ce and safety for patient. Mrs. Chhaal was previously independent with all task and is now requiring assistance to get in/out of bed, stand, walk, and perform self care tasks. Without intensive acute re hab approach, Mrs. Chahal's residual stroke deficits may become permanent and/or worsen. Mrs. Chahal will benefit from skilled acute inpatient rehab to prevent contractures/flaccidity and relearn to car e for herself at her PLOF. Mrs. Chahal is currently working with PT and OT. Both disciplines report nomi rudd continues to present with confusion and mild word finding deficits along with impulsive and un safe behaviors during session requiring continuous cuing. Mrs. Chahal barriers to progress are R shou lder fracture with NWB status, lack of safety awareness, pain, and impulsivity. OT and PT report linda ent to have decreased balance, decreased strength, decreased transfers, decreased ambulation, decreas ed functional mobility, decreased activity tolerance, pain, cognitive deficits, and decreased safety. Withan interdisciplinary approach by acute IRF, pt. demonstrates great potentialand motivation to g et stronger, safer, and more independent to return toPLOF. Pt demonstrates a strong need sravanthi inten sive team: rehab doctor, nurse, social media coordinator, and therapist to meetfunctional and medical goals. It is reasonable and necessary for the patient tocome to acute IRF to safely dc. Pt is medically stable but in need of 24 hournursing, doctor supervision, and oversight while receiving active and ongoingin tensive (OT/PT/ST). The patient is reasonably expected to participate in 3hours of therapy a day/15 h ours a week. COVID-19 screening performed. Patient denies a new onset of fever, cough,difficulty ghulam athing, sore throat, body aches and non-allergy nasal congestionin the past 24 hours. Patient denies travel outside of [place] in the past 14days. Patient denies any contact with someone who has a confirm ed diagnosis ofor is under investigation for COVID-19 in the past 14 days. Patient has beentested neg ative for COVID- 19. PAST MEDICAL HISTORY DM HTN Blurry Vision B Neuropathy Ischemic Stroke (HCC) Right Humeral Head Fracture UTI Anxiety KARTHIK hypercholestrolemia squamous cell carcinoma PAST SURGICAL HISTORY: No surgical history on patient's chart/file MEDICATION ALLERGIES: No Known Drug Allergies (NKDA) ENVIRONMENTAL ALLERGIES: None Known - Substance Allergies None Known - Other Allergies None Known CODE STATUS: Full code WEIGHT/HEIGHT/BMI: WEIGHT 226 lbs HEIGHT 5' 3" BMI 40 DIET: - Diet Type Regular - Diet - Solid Texture Regular - Diet - Liquid Texture Regular - Tube Feed N/A SKIN DIAGRAM: Right Humeral Head Fracture on Right shoulder;Treatment - Adhere to WB precautions; utilize arm sling as ordered by . Right Humeral Head Fracture on Right shoulder; Treatment - Adhere to WB precautions; utilize arm slin g as ordered by . REVIEW OF SYSTEMS: - Gen Alert and awake Lying in bed No apparent distress Oriented to: person, time, and place - Vital Signs Temperature: 97.6 F SBP/DBP: 162/66 Pulse: 94 Resp: 21 Vital signs stable, afebrile - CVS RRR VITAL SIGNS Temperature: 97.6 F SBP/DBP: 162/66 Pulse: 94 Resp: 21 Vital signs stable, afebrile Vitals recorded by nursing on 01/07/2021 at 4:33 pm. MEDICATIONS/TREATMENT: Other- See attached MAR (Medication Administration Record). CURRENT SPHINCTER CONTROL: Pre-hospital bladder status: unspecified # of bladder accidents in the last 7 days prior to screenin Pre-hospital bowel status: unspecified # of bowel accidents in the last 7 days prior to screenin Last Bowel Movement Date: 01/12/2021 CURRENT LOCOMOTION STATUS: distance walked 10 feet with BANANA RIPENING ROOM SUPERVISOR DETAILED CURRENT FUNCTIONAL STATUS: - Bladder accident frequency: 7-Ind - No accidents in the past 7 days - Bowel accident frequency: 7-Ind - No accidents in the past 7 days - Walking score based on distance walked: 0(N/A) score based on distance walked: 1(<=50ft) - Wheelchair score based on distance traveled: 0(N/A) QI SCORES: - Self-Care A. Eating 88-Not attempted due to medical condition or safety concerns B. Oral hygiene 03-Partial/moderate assistance C. Toileting hygiene 03-Partial/moderate assistance E. Shower/bathe self 88-Not attempted due to medical condition or safety concerns F. Upper body dressing 02-Substantial/maximal assistance G. Lower body dressing 02-Substantial/maximal assistance H. Putting on/taking off footwear 02-Substantial/maximal assistance - Mobility A. Roll left and right 03-Partial/moderate assistance B. Sit to lying 03-Partial/moderate assistance C. Lying to sitting on side of bed 03-Partial/moderate assistance D. Sit to stand 03-Partial/moderate assistance E. Chair/[id number] transfer 03-Partial/moderate assistance F. Toilet transfer 03-Partial/moderate assistance G. Car transfer 88-Not attempted due to medical condition or safety concerns I. Walk 10 feet 03-Partial/moderate assistance J. Walk 50 feet with two turns 88-Not attempted due to medical condition or safety concerns K. Walk 150 feet 88-Not attempted due to medical condition or safety concerns L. Walking 10 feet on uneven surfaces 88-Not attempted due to medical condition or safety concerns M. 1 step (curb) 88-Not attempted due to medical condition or safety concerns N. 4 steps 88-Not attempted due to medical condition or safety concerns O. 12 steps 88-Not attempted due to medical condition or safety concerns P. Picking up object 88-Not attempted due to medical condition or safety concerns R. Wheel 50 feet with two turns S. Wheel 150 feet - Bladder and Bowel Bladder continence Bowel continence - Endurance Fair - Balance Fair - Safety Awareness Fair CURRENT FUNC. DEFICITS: Mobility, Endurance, Balance, Safety Awareness, and Self-Care CURRENT / PREVIOUS ASSISTIVE DEVICES: arm sling HISTORY OF FALLS. HAS THE PATIENT HAD TWO OR MORE FALLS IN THE PAST YEAR OR ANY FALL WITH INJURY IN T HE PAST YEAR?: Yes PRIOR SURGERY. DID THE PATIENT HAVE MAJOR SURGERY DURING THE 100 DAYS PRIOR TO ADMISSION?: Unknown THERAPY NOTES FROM ACUTE CARE: Attached. SPECIAL NEEDS: - Safety Concerns Fall precautions needed due to Poor balance Skin breakdown precautions needed due to skin breakdown risk Weight Bearing PRECAUTIONS: - Weight Bearing Precaution NWB RUE - Fall Precaution Bed alarm TABS alarm Wheel chair alarm PATIENT NEEDS ACTIVE AND ONGOING THERAPEUTIC INTERVENTION OF MULTIPLE THERAPY DISCIPLINES, INCLUDING: - Dietary and Nutrition Adequate Nutrition. Nutritional Education. Nutritional Supplements. - Occupational Therapy Cognitive Retraining. ADL Training. Adaptive Equipment. Community Reintegration. Eating. Evaluate and Treat. Household Tasks. Indep. ADL's- Higher Level Functioning. Patient/Family Education. Safety Aspen reness. Transfer Training. UE Strengthening. - Speech Therapy Cognitive Training. Expressive Language Skills. Memory Strategies. Receptive Language Skills. Speech Intelligibility Training. - Physical Therapy Balance Training. Evaluate and Treat. Gait Training. LE ROM. LE Strengthening. Medical Equipment Asse ssment and Evaluation. Mobility Training. Modalities Training. Patient/Family Education. Safety Aware ness. Transfer Training. PATIENT NEEDS CLOSE MEDICAL SUPERVISION BY A REHABILITATION PHYSICIAN FOR: Coordination of Treatment Team Diabetes Management Medical and Co-Morbidity Management Pain Management medication management PATIENT REQUIRES 24X7 REHAB NURSING FOR MEDICAL AND FUNCTIONAL MGT. OF THE FOLLOWING DEFICITS: Disease Management Medication Management Patient/Family Education Providing Safe Environment Skin Integrity Ambulation Cognition Pain Management Swallowing Transfers PATIENT REQUIRES INTENSIVE, COORDINATED INTERDISCIPLINARY APPROACH TO REHAB: Arranging Home Equipment/Services Discharge Planning Family Intervention/Training Vp Ancillary/Case Management PATIENT REHAB POTENTIAL: Juliane AYOUB is able and expected to receive 3 hours of individualized therapy daily on at least 5 of every 7 days Juliane AYOUB'dejon prognosis for significant practical improvement within a reasonable period of time appe ars Good Expected level of measurable improvement will be of a practical value to Juliane AYOUB's functional cap acity or adaptations to impairments Has a viable Discharge Plan Medically appropriate; condition is sufficiently stable to participate in intensive rehab program DISCHARGE PLAN: - Estimated Length of Stay (days) 17. - Consensus on plan Discharge plan has been discussed with primary caregiver. Patient/Family is in agreement with the edilma n. Primary caregiver is in agreement with the plan. - Patient/Family Goals Return home independently. - Planned Living Setting Upon Discharge Home, to live with Family/Relatives. Transitional Living. RECOMMENDED CARE LEVEL: IRF RECOMMENDATION DETAILS: Recommended Admission to Comprehensive Rehabilitation Program to Increase Functional [place] SCREENER'S COMPLETENESS CONFIRMATION: - Screening Confirmation The patient data collection on this preadmission screening form is finished PHYSICIANS REVIEW AND ADMISSION DETERMINATION Admit - Based on my review of the Pre-Admission Screening results, in my medical judgment and experie nce, I concur with the findings and recommend admission to [facility], as this patient requires an IRF level of care. SIGNATURE PANEL: Stone Polisher Machine - [electronically] signed by Rachael Ghosh on 01/12/2021 at 10:18 (SAFETY SPEC) Stone Polisher Machine - [electronically] signed by Fer Mack PT on 01/12/2021 at 10:47 (SAFETY SPEC) Physician Reviewer - [electronically] signed by Dr. Prince Ivey M.D. on 01/12/2021 at 11:44 (SAFETY SPEC )
[2021-01-12] MEDS ORDERED: GLUCAGON 1 MG/VIAL IM PRN ×3 (13:44→14:04)
[2021-01-12] MEDS ORDERED: D50W 25 GM/50 ML SYRINGE IV PRN ×3 (13:44→14:04)
[2021-01-12] MEDS ORDERED: BISACODYL E.C. 5 MG TAB PO PRN (13:47)
[2021-01-12] MEDS ORDERED: BISACODYL 10 MG RECTAL SUPP PR PRN (13:49)
[2021-01-12] MEDS ORDERED: METOPROLOL TAR 50 MG TAB PO SCH (14:00)
[2021-01-12] MEDS ORDERED: INSULIN LISPRO 100 UNIT/1 ML SQ SCH (14:00)
[2021-01-12] MEDS ORDERED: DOCUSATE NA/SENNA CONC 1 TAB PO PRN (14:03)
[2021-01-12] MEDS ORDERED: ACETAMINOPHEN 500 MG TAB PO PRN (14:06)
[2021-01-12] MEDS ORDERED: INFLUENZA VACCINE (for 6+ mo) 0.5 ML DOSE IMVAC ONE (16:00)
[2021-01-12] MEDS: INSULIN LISPRO 100 UNIT/1 ML SQ SCH (17:00)
[2021-01-12] MEDS: INSULIN -REGULAR HUMAN 50 UNIT/0.5 ML ML SQ SCH ×2 (17:01→19:34)
[2021-01-12] MEDS: METOPROLOL TAR 50 MG TAB PO SCH (17:02)
[2021-01-12] MEDS: METFORMIN ER 500 MG TAB PO SCH (17:02)
[2021-01-12 17:58] LABS: Urine Appearance CLEAR (Clear); Urine Bilirubin NEGATIVE (Negative); Urine Blood NEGATIVE (Negative); Urine Color YELLOW (Yellow); Urine Glucose 3+ (Negative); Urine Protein NEGATIVE (Negative); Urine Urobilinogen 0.2 mg/dL (0.2-1.0); Urine pH 5.5 (5.0-7.0)
[2021-01-12 18:55] LABS: Urine Bacteria <20 /HPF (<20); Urine RBC <5 /HPF (NONE SEEN)
[2021-01-12 18:56] LABS: Urine Mucus LIGHT /HPF (NONE SEEN)
[2021-01-12] MEDS: INSULIN GLARGINE 100 UNITS/ML SQ SCH (19:33)
[2021-01-12] MEDS: NAPROXEN 250 MG TAB PO SCH (19:34)
[2021-01-12] MEDS: ATORVASTATIN 80 MG TAB PO SCH (19:35)
[2021-01-12] MEDS: CIPROFLOXACIN HCL 500 MG TAB PO SCH (19:35)
[2021-01-12] MEDS: MELATONIN 3 MG TABLET PO SCH (19:35)
[2021-01-12] MEDS: HYDROCODONE/APAP 5/325 MG TAB PO PRN (19:35)
[2021-01-12] MEDS: GABAPENTIN 100 MG CAP PO SCH (19:35)
[2021-01-12] MEDS: NYSTATIN PWDR 100000 UNIT/GM TOP SCH (19:36)
--- NOTE | 2021-01-12 19:36 | R.HP ---
HISTORY AND PHYSICAL FACILITY: 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 board/care, assisted living, custodial, transitional living) PRE-HOSPITAL LIVING WITH Family/Relatives ENCOUNTER PHYSICIAN: Dr. Prince Ivey M.D. REFERRING DOCTOR: Dr. 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 HISTORY OF PRESENT ILLNESS (HPI): On 01/05/2021 Pt. presented to [facility] with sudden onse t of right-side weakness. Pt. is a 70 yo white female. On 01/05/2021 she was admitted to [facility] with diagnosi s L CVA, uncontrolled diabetes mellitus. Her impairment category is Stroke 01 - Right Body (Left Brain) (01.2). Pre-morbidly, Pt. was independent/mod-I in Locomotion, Safety Awareness, Social Cognition, Balance, T ransfers Control, Sphincter Control, Self-Care, Communication, and Endurance; and she had good Locomo tion, Safety Awareness, Balance, Social Cognition, Transfers Control, Sphincter Control, Self-Care, C ommunication, and Endurance. Currently, she has deficits of Locomotion, Safety Awareness, Social Cognition, Balance, Transfers Con trol, Self-Care, Communication, and Endurance. Pt. is now referred to [facility] for acute in-patient rehabilitation in order to maximize patient's functional independence in activities of daily living, strength, ROM, and mobi lity. Patient has realistic goal of being discharged at assistance level Sup-IND to reside at Home with Fa shelby/Relatives. Mrs. Fela Ayoub is a 70 yo white female that lives at home with her . Mrs. Chahal reports being independent with all tasks without AD/E prior to hospitalization. Mrs. Chahal sought medical a ttention at [facility] with a recent R shoulder fx (Monday) and after she started experiencing diffic ulty with speech (inability to say what she wanted to say and dysarthria), R facial droop, and confu arvin on the afternoon of 01/05/2021. When Mrs. Chahal was taken to the OSH by her she was hype rtensive at 220/94, BG 138, and NIHSS recorded 3. Mrs. Chahal received tPA at 6 p.m. and then transfe rred to [facility]. [facility] arrival to the [facility], Mrs. Chahal was hypertensi ve to 190's and the NIHSS was 0. Mrs. Chahal endorsed numbness in her feet (chronic) and blurred vis ion in both eyes. Mrs. Chahal's diagnostic imaging resulted negative for a stroke, likely due to tPA provided. Mrs. Chahal has a PMH of: DMII, HTN, anxiety, blurred vision, and B neuropathy, hypercholes terolemia, and squamous cell carcinoma. Mrs. Chahal requires intensive acute inpatient rehab approach to reduce caregiver burden from of 80 yo with his own physical ailments, maximize independen ce and safety for patient. Mrs. Chahal was previously independent with all task and is now requiring assistance to get in/out of bed, stand, walk, and perform self care tasks. Without intensive acute re hab approach, Mrs. Chahal's residual stroke deficits may become permanent and/or worsen. Mrs. Chahal will benefit from skilled acute inpatient rehab to prevent contractures/flaccidity and relearn to car e for herself at her PLOF. Mrs. Chahal is currently working with PT and OT. Both disciplines report p atient continues to present with confusion and mild word finding deficits along with impulsive and un safe behaviors during session requiring continuous cuing. Mrs. Chahal barriers to progress are R shou lder fracture with NWB status, lack of safety awareness, pain, and impulsivity. OT and PT report linda ent to have decreased balance, decreased strength, decreased transfers, decreased ambulation, decreas ed functional mobility, decreased activity tolerance, pain, cognitive deficits, and decreased safety. Withan interdisciplinary approach by acute IRF, pt. demonstrates great potentialand motivation to g et stronger, safer, and more independent to return toPLOF. Pt demonstrates a strong need sravanthi inten sive team: rehab doctor, nurse, social media executive, and therapist to meetfunctional and medical goals. It is reasonable and necessary for the patient tocome to acute IRF to safely dc. Pt is medically stable but in need of 24 hournursing, doctor supervision, and oversight while receiving active and ongoingin tensive (OT/PT/ST). The patient is reasonably expected to participate in 3hours of therapy a day/15 h ours a week. COVID-19 screening performed. Patient denies a new onset of fever, cough,difficulty ghulam athing, sore throat, body aches and non-allergy nasal congestionin the past 24 hours. Patient denies travel outside of [place] in the past 14days. Patient denies any contact with someone who has a confirm ed diagnosis ofor is under investigation for COVID-19 in the past 14 days. Patient has beentested neg ative for COVID- 19. MEDICATION ALLERGIES: No Known Drug Allergies (NKDA) ENVIRONMENTAL ALLERGIES: None Known - Substance Allergies None Known - Other Allergies None Known PAST MEDICAL HISTORY: DM HTN Blurry Vision B Neuropathy Ischemic Stroke (HCC) Right Humeral Head Fracture UTI Anxiety KARTHIK hypercholestrolemia squamous cell carcinoma PAST SURGICAL HISTORY: No surgical history on patient's chart/file SOCIAL HISTORY: - Home Living Family/Relatives REVIEW OF SYSTEMS: - Gen No Chills Fatigue No Fever - Eyes No Double Vision No itchiness - ENMT No Difficulty Swallowing - CVS No Chest Discomfort No Chest Pain No Fatigue No Weight Gain - Resp No Cough No Shortness of Breath - GI Continent No Abdominal Pain No Constipation No Diarrhea - Continent No Kidney Pain No Painful Urination No Urinary Urgency - MSK Joint Pain Muscle Cramps Stiffness - Skin No Itching No Rash No Suspicious Lesions - Neuro Coordination Difficulty No Difficulty with Concentration No Memory Loss No Seizures Weakness - Psych No Anxiety No Depression No HIV Exposure No Persistent Infections No Seasonal Allergies - Endo No Cold/Heat Intolerance No Excessive Hunger No Excessive Thirst No Excessive Urination PHYSICAL EXAM - Gen Alert and awake Lying in bed No apparent distress Oriented to: person, time, and place - Skin No skin breakdown. Normacephalic - Eyes No abnormalities - ENMT No abnormalities - Neck No abnormalities No cervical adenopathy - CVS RRR - Chest No abnormalities - Abd Soft - GI Non distended Deferred - No abnormalities - Ext Mild right upper extremity hyperemia and edema. - MSK Mild to moderate right upper and lower extremity weakness - Neuro Mild to moderate right upper and lower extremity weakness - Psych No abnormalities VITAL SIGNS Temperature: 97.6 F SBP/DBP: 141/62 Pulse: 67 Resp: 16 NURSING: - Shower allowing shower - Bladder care per protocol - Skin care per protocol PRECAUTIONS: - Weight Bearing Precaution NWB RUE - Fall Precaution Bed alarm TABS alarm Wheel chair alarm ACTIVITIES OOB only with supervision QI SCORES: - Self-Care A. Eating 88-Not attempted due to medical condition or safety concerns B. Oral hygiene 03-Partial/moderate assistance C. Toileting hygiene 03-Partial/moderate assistance E. Shower/bathe self 88-Not attempted due to medical condition or safety concerns F. Upper body dressing 02-Substantial/maximal assistance G. Lower body dressing 02-Substantial/maximal assistance H. Putting on/taking off footwear 02-Substantial/maximal assistance - Mobility A. Roll left and right 03-Partial/moderate assistance B. Sit to lying 03-Partial/moderate assistance C. Lying to sitting on side of bed 03-Partial/moderate assistance D. Sit to stand 03-Partial/moderate assistance E. Chair/rjp-xo-[id number] transfer 03-Partial/moderate assistance F. Toilet transfer 03-Partial/moderate assistance G. Car transfer 88-Not attempted due to medical condition or safety concerns I. Walk 10 feet 03-Partial/moderate assistance J. Walk 50 feet with two turns 88-Not attempted due to medical condition or safety concerns K. Walk 150 feet 88-Not attempted due to medical condition or safety concerns L. Walking 10 feet on uneven surfaces 88-Not attempted due to medical condition or safety concerns M. 1 step (curb) 88-Not attempted due to medical condition or safety concerns N. 4 steps 88-Not attempted due to medical condition or safety concerns O. 12 steps 88-Not attempted due to medical condition or safety concerns P. Picking up object 88-Not attempted due to medical condition or safety concerns R. Wheel 50 feet with two turns S. Wheel 150 feet - Bladder and Bowel Bladder continence Bowel continence - Endurance Fair - Balance Fair - Safety Awareness Fair CURRENT [facility]. DEFICITS: Mobility, Endurance, Balance, Safety Awareness, and Self-Care MEDICATIONS: - Other See attached MAR (Medication Administration Record) ASSESSMENT: On 01/05/2021 Pt. presented to [facility] with sudden onse t of right-side weakness.Pt. is a 70 yo white female.On 01/05/2021 she was admitted to [facility] with diagnosis L CVA, uncontrolled diabetes mellitus.Her impa irment category is Stroke 01 - Right Body (Left Brain) (01.2).Pre-morbidly, Pt. was independent/mod- I in Locomotion, Safety Awareness, Social Cognition, Balance, Transfers Control, Sphincter Control, S elf-Care, Communication, and Endurance; and she had good Locomotion, Safety Awareness, Balance, Socia l Cognition, Transfers Control, Sphincter Control, Self-Care, Communication, and Endurance.Currently, she has deficits of Locomotion, Safety Awareness, Social Cognition, Balance, Transfers Control, Self -Care, Communication, and Endurance.Pt. is now referred to [facility] for acut e in-patient rehabilitation in order to maximize patient's functional independence in activities of d aily living, strength, ROM, and mobility.- Rehab Goal Patient has realistic goal of being discharged at assistance level Sup-IND to reside at Home with Fa shelby/Relatives. Mrs. Fela Ayoub is a 70 yo white female that lives at home with her . Mrs. Chahal reports being independent with all tasks without AD/E prior to hospitalization. Mrs. Chahal sought medical a ttention at [facility] with a recent R shoulder fx (Monday) and after she started experiencing diffic ulty with speech (inability to say what she wanted to say and dysarthria), R facial droop, and confu arvin on the afternoon of 01/05/2021. When Mrs. Chahal was taken to the OSH by her she was hype rtensive at 220/94, BG 138, and NIHSS recorded 3. Mrs. Chahal received tPA at 6 p.m. and then transfe rred to [facility]. Upon arrival to the medical center, Mrs. Chahal was hypertensi ve to 190's and the NIHSS was 0. Mrs. Chahal endorsed numbness in her feet (chronic) and blurred vis ion in both eyes. Mrs. Chahal's diagnostic imaging resulted negative for a stroke, likely due to tPA provided. Mrs. Chahal has a PMH of: DMII, HTN, anxiety, blurred vision, and B neuropathy, hypercholes terolemia, and squamous cell carcinoma. Mrs. Chahal requires intensive acute inpatient rehab approach to reduce caregiver burden from of 80 yo with his own physical ailments, maximize independen ce and safety for patient. Mrs. Chahal was previously independent with all task and is now requiring assistance to get in/out of bed, stand, walk, and perform self care tasks. Without intensive acute re hab approach, Mrs. Cabraless residual stroke deficits may become permanent and/or worsen. Mrs. Chahal will benefit from skilled acute inpatient rehab to prevent contractures/flaccidity and relearn to car e for herself at her PLOF. Mrs. hCahal is currently working with PT and OT. Both disciplines report p blaire continues to present with confusion and mild word finding deficits along with impulsive and un safe behaviors during session requiring continuous cuing. Mrs. Chahal barriers to progress are R shou lder fracture with NWB status, lack of safety awareness, pain, and impulsivity. OT and PT report linda ent to have decreased balance, decreased strength, decreased transfers, decreased ambulation, decreas ed functional mobility, decreased activity tolerance, pain, cognitive deficits, and decreased safety. Withan interdisciplinary approach by acute IRF, pt. demonstrates great potentialand motivation to g et stronger, safer, and more independent to return toPLOF. Pt demonstrates a strong need sravanthi inten sive team: rehab doctor, nurse, social media executive, and therapist to meetfunctional and medical goals. It is reasonable and necessary for the patient tocome to acute IRF to safely dc. Pt is medically stable but in need of 24 hournursing, doctor supervision, and oversight while receiving active and ongoingin tensive (OT/PT/ST). The patient is reasonably expected to participate in 3hours of therapy a day/15 h ours a week. COVID-19 screening performed. Patient denies a new onset of fever, cough,difficulty ghulam athing, sore throat, body aches and non-allergy nasal congestionin the past 24 hours. Patient denies travel outside of [place] in the past 14days. Patient denies any contact with someone who has a confirm ed diagnosis ofor is under investigation for COVID-19 in the past 14 days. Patient has beentested neg ative for COVID- 19.REHAB PLAN: for Dementia, TBI, Stroke, or others - Physical Therapy Weakness - to improve, our physical therapists will perform initial evaluation of pt's status upon a dmission and devise an individualized program for Aquatic Therapy, Neuromuscular Reeducation, and Str engthening Poor balance - to improve, our physical therapists will perform initial evaluation of pt's status up on admission and devise an individualized program for Balance Training Inability to transfer - to improve, our physical therapists will perform initial evaluation of pt's status upon admission and devise an individualized program for Bed mobility Need in caregiver upon discharge - to improve, our physical therapists will perform initial evaluati on of pt's status upon admission and devise an individualized program for Caregiver Training Poor endurance - to improve, our physical therapists will perform initial evaluation of pt's status upon admission and devise an individualized program for Endurance Training Gait dysfunction - to improve, our physical therapists will perform initial evaluation of pt's statu s upon admission and devise an individualized program for Gait Training, and Wheel Chair mobility Need for home safety evaluation - to improve, our physical therapists will perform initial evaluatio n of pt's status upon admission and devise an individualized program for Home Evaluation New precaution - to improve, our physical therapists will perform initial evaluation of pt's status upon admission and devise an individualized program for Patient precaution education Edema - to improve, our physical therapists will perform initial evaluation of pt's status upon admi ssion and devise an individualized program for Elevation Training, and Lymphedema Therapy - Occupational Therapy Weakness - to improve, our occupation therapists will perform initial evaluation of pt's status upon admission and devise an individualized program for Aquatic Therapy, Balance, Endurance, UE ROM, and UE strengthening ADL deficits - to improve, our occupation therapists will perform initial evaluation of pt's status upon admission and devise an individualized program for Bathing, Bed mobility, Community Reintegratio n, Cooking, Dressing, Eating, Fine Motor Skills, Grooming, Homemaking, Kitchen Mobility, Laundry, Pat ient Education, Safety Awareness, Splinting - Positioning, Transfers(Toilet, Tub, Shower), and Wheel Chair Management Need for spiritual care coordinator - to improve, our occupation therapists will perform initial evaluation of pt's status upon admission and devise an individualized program for Caregiver Training Cognitive deficits - to improve, our occupation therapists will perform initial evaluation of pt's s tatus upon admission and devise an individualized program for Cognition - orientation - Balance for Weakness - Bed mobility for ADL deficits - Cognition - orientation for Dementia - Dressing Status: for ADL deficits - Eating for ADL deficits - Grooming Status: for ADL deficits - Toilet Transfer for ADL deficits Status: - Bed to Chair Transfer sbt Status: for ADL deficits - Tub Transfer for ADL deficits Status: - Hygiene for ADL deficits - Shower Transfer for ADL deficits Status: - Wheel Chair to Bed Transfer Status: for ADL deficits MEDICAL PLAN: - Diet Type Start Regular - Diet - Liquid Texture Start Regular - Tube Feed Start N/A - Bladder care per protocol - Weight Bearing Precaution NWB RUE WBAT right LE - Fall Precaution Bed alarm TABS alarm Wheel chair alarm - Skin care per protocol - Other See attached MAR (Medication Administration Record) - Diet - Solid Texture Regular - Shower shower DISCHARGE PLAN: - Estimated Length of Stay (days) 17. - Consensus on plan Discharge plan has been discussed with primary caregiver. Patient/Family is in agreement with the edilma n. Primary caregiver is in agreement with the plan. - Patient/Family Goals Return home independently. - Planned Living Setting Upon Discharge Home, to live with Family/Relatives. Transitional Living. 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
--- NOTE | 2021-01-12 19:37 | PAPE ---
POST ADMISSION PHYSICIAN EVALUATION PATIENT: [facility] MR# [id number] REFERRING DOCTOR Dr. 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 Prince Ivey M.D. ADMISSION DIAGNOSIS: L CVA, uncontrolled diabetes mellitus ONSET DATE 01/05/2021 POST-ADMISSION FUNCTIONAL/MEDICAL STATUS: - Bladder Same accident frequency: 7-Ind - No accidents in the past 7 days - Bowel Same accident frequency: 7-Ind - No accidents in the past 7 days - Walking Same score based on distance walked: 0(N/A) Same score based on distance walked: 1(<=50ft) - Wheelchair Same score based on distance traveled: 0(N/A) STATUS CHANGE EVALUATION: No change in Functional or Medical Status is identified compared with Pre-Admission screening. PATIENT NEEDS CLOSE MEDICAL SUPERVISION BY A REHABILITATION PHYSICIAN FOR: Coordination of Treatment Team Diabetes Management Medical and Co-Morbidity Management Pain Management medication management PATIENT REQUIRES 24X7 REHAB NURSING FOR MEDICAL AND FUNCTIONAL MGT. OF THE FOLLOWING DEFICITS: Disease Management Medication Management Patient/Family Education Providing Safe Environment Skin Integrity Ambulation Cognition Pain Management Swallowing Transfers PATIENT REQUIRES INTENSIVE, COORDINATED INTERDISCIPLINARY APPROACH TO REHAB: Arranging Home Equipment/Services Discharge Planning Family Intervention/Training Automotive Service Consultant/Case Management LIST OF IDENTIFIED AND POTENTIAL PROBLEMS: Alteration in leisure activities Bladder, Incontinence Bowel, Incontinence Falls, Actual or Potential Infection, Actual or Potential Mobility Impaired Pain, Alteration in Comfort Self Care Deficit Skin Integrity, Actual or Potential Urinary Tract Infection (UTI), Actual or Potential RISK FOR COMPLICATIONS - Aspiration Clinical staff will monitor for coughing, drooling, congestion. Nursing will monitor patient swallowi ng during meals. Speech will evaluate swallowing and dysphagia. - Fx Educate on prevention of worsening R shoulder fx. - CVA Monitor signs and symptoms of stroke. - UTI Monitor for frequency, burning, discomfort, or incontinence. - DVT Routine checks/assessments of pt. JEREMIAH hose; sequential compression device as needed/prescribed. - Skin Breakdown Nursing will assess skin daily using assessment tool and will place on Skin Breakdown Precautions as Indicated per protocol. - Pain Clinical staff will assess patient's pain level every shift per protocol to monitor for pain manageme nt effectiveness. Educate patient on pain management strategies. Medications will be given and the pa in level reassessed. Clinical Staff may employ other methods such as: massage, distraction, decrease stimulus, etc. as needed. - Falls Educated pt on fall prevention strategies to reduce/eliminate fall risk. Patient will be evaluated fo r Fall Precautions and will be placed on Fall Precautions as indicated per protocol. - Impaired Safety Educate patient on safety awareness strategies. Educate patient on safety hazards. - Bleeding Monitor lab values. - Limb Ischemia Assess circulation each shift. Report any changes to MD. - Sespsis Monitor lab values. - Anxiety Clinical staff will take time to explain any procedures, POC, and course of current tx. INTERVENTIONS - CVA/TIA Neuro checks. Medications. Spasticity/Flaccidity management. VS. - R Shoulder Fx Educate on proper WB status as per doctors orders to prevent worsening fx. - Hypertension Medications. - Diabetes Mellitus Diabetes Management education. PATIENT COULD BE AT RISK FOR COMPLICATIONS FROM ADVERSE MEDICAL CONDITIONS DUE TO HIS/HER COMORBIDITI ES AND THE RIGORS OF THE INTENSIVE REHABILLITATION PROGRAM. METHODS OR INTERVENTIONS TO AVOID COMPLIC ATIONS INCLUDE: - Bleeding Stroke patients assessed for lethargy or change in status. - Infection Clinical staff to assess and manage the signs and symptoms of infection including fever, redness, war mth, etc. - Urinary Tract Infection - Aspiration Clinical staff will assess and manage coughing, drooling, congestion. - Falls Patient will be evaluated for Fall Precautions and will be placed on Fall Precautions as indicated pe r protocol. - Skin Breakdown Nursing will assess skin daily using assessment tool and will place on Skin Breakdown Precautions as indicated per protocol. - Pain Clinical staff may employ non-medication methods such as massage, distraction, decrease stimulus, etc . as needed. Clinical staff will assess patient's pain level every shift per protocol to assess and e nsure pain management effectiveness. Medications will be given and the pain level re-assessed. PRELIMINARY PLAN OF CARE: - Physical Therapy Patient needs Physical Therapy for a daily minimum of 1.5 hours at least 5 out of 7 days, to improve: Mobility, Strengthening, Transfers, Stretching, ROM, Endurance, Ability to manage stairs, Gait, and Balance. - Speech Therapy Patient needs Speech Therapy for a daily minimum of 0.5 hours at least 5 out of 7 days, to improve: S wallowing, Cognition, Language Skills, and Compensatory Strategies. - Rehabilitation Nursing Patient requires 24x7 Rehabilitation Nursing for: Pain Issues, Identifying and preventing risk factor s, Monitoring and reporting current medical conditions, Assisting with ambulation and transfer, Guillermina ting with all ADL-s, Teaching patients about disease process and medications, Family teaching, Provid ing safe environment, Bowel and Bladder Issues, Skin Integrity, and Medication Management. Patient needs Automotive Service Consultant and/or Case Management for: Discharge Planning, Arranging Home Equipmen t or Services, and Family Interventions. - Dietary and Nutrition Services Patient needs Dietary and Nutrition Services for: Adequate Nutrition, Nutritional Supplements, and Nu tritional Education. - Occupational Therapy Patient needs Occupational Therapy for a daily minimum of 1.5 hours at least 5 out of 7 days, to impr ove Activities of Daily Living, including: Eating, Grooming, Bathing, Dressing, Toileting, Toilet Tra nsfers, Community Reintegration, Higher functional activities, Adaptive Equipment, Splinting, Househo ld Tasks, and Other activities as determined. QI SCORES: - Self-Care A. Eating 88-Not attempted due to medical condition or safety concerns B. Oral hygiene 03-Partial/moderate assistance C. Toileting hygiene 03-Partial/moderate assistance E. Shower/bathe self 88-Not attempted due to medical condition or safety concerns F. Upper body dressing 02-Substantial/maximal assistance G. Lower body dressing 02-Substantial/maximal assistance H. Putting on/taking off footwear 02-Substantial/maximal assistance - Mobility A. Roll left and right 03-Partial/moderate assistance B. Sit to lying 03-Partial/moderate assistance C. Lying to sitting on side of bed 03-Partial/moderate assistance D. Sit to stand 03-Partial/moderate assistance E. Chair/[id number]-[id number] transfer 03-Partial/moderate assistance F. Toilet transfer 03-Partial/moderate assistance G. Car transfer 88-Not attempted due to medical condition or safety concerns I. Walk 10 feet 03-Partial/moderate assistance J. Walk 50 feet with two turns 88-Not attempted due to medical condition or safety concerns K. Walk 150 feet 88-Not attempted due to medical condition or safety concerns L. Walking 10 feet on uneven surfaces 88-Not attempted due to medical condition or safety concerns M. 1 step (curb) 88-Not attempted due to medical condition or safety concerns N. 4 steps 88-Not attempted due to medical condition or safety concerns O. 12 steps 88-Not attempted due to medical condition or safety concerns P. Picking up object 88-Not attempted due to medical condition or safety concerns R. Wheel 50 feet with two turns S. Wheel 150 feet - Bladder and Bowel Bladder continence Bowel continence - Endurance Fair - Balance Fair - Safety Awareness Fair POTENTIAL FUNCTIONAL GOALS FOR PATIENT TO ACHIEVE BY DISCHARGE: - Safety Precaution Patient will remain free from falls or injury at time of discharge. - Bed Mobility Patient will perform bed mobility at 4-Marilyn level of assistance. - Transfers Patient will complete transfers from bed to chair at 4-Marilyn level of assistance. - Mobility Patient will ambulate 150 ft with 4-Marilyn level of assistance with RW. PATIENT REHAB POTENTIAL Juliane HUITRON is able and expected to receive 3 hours of individualized therapy daily on at least 5 of every 7 days Juliane LAYTONTASIA's prognosis for significant practical improvement within a reasonable period of time appe ars Good Expected level of measurable improvement will be of a practical value to Juliane CALINTASIA's functional cap acity or adaptations to impairments Has a viable Discharge Plan Medically appropriate; condition is sufficiently stable to participate in intensive rehab program DISCHARGE PLAN: - Estimated Length of Stay (days) 17. - Consensus on plan Discharge plan has been discussed with primary caregiver. Patient/Family is in agreement with the edilma n. Primary caregiver is in agreement with the plan. - Patient/Family Goals Return home independently. - Planned Living Setting Upon Discharge Home, to live with Family/Relatives. Transitional Living. CONCLUSION ON REHABILITATION NECESSITY: I have evaluated patient's pre-admission functional status and, comparing it to the patient's post-ad mission functional status now, I conclude that the pre-admission assessment was accurate. Patient's c ondition on admission supports the medical necessity of admission to IR[facility]. It is safe to proceed with patient's therapy program. 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
[2021-01-13 04:58] LABS: Absolute Lymphocytes (CBC) 2.8 K/uL (0.7-4.9); Basophils % 0.8 % (0-1.3); Hematocrit 35.4 % (36.0-45.0); Lymphocytes % 30.1 % (15.3-44.8); RBC Red Blood Cell Count 4.12 M/uL (3.86-4.86)
[2021-01-13 05:14] LABS: Albumin 2.7 g/dL (3.4-5.0); Magnesium 1.9 mg/dL (1.8-2.4); Potassium 3.4 mmol/L (3.5-5.1); Prealbumin 17.6 mg/dL (20-40)
[2021-01-13] MEDS ORDERED: BISACODYL 10 MG RECTAL SUPP PR PRN (06:19)
[2021-01-13] MEDS: ENOXAPARIN 40 MG/0.4 ML SQ SCH (07:01)
[2021-01-13] MEDS: INSULIN -REGULAR HUMAN 50 UNIT/0.5 ML ML SQ SCH ×4 (07:30→19:22)
[2021-01-13] MEDS: INSULIN LISPRO 100 UNIT/1 ML SQ SCH ×3 (08:03→17:03)
[2021-01-13] MEDS: INSULIN GLARGINE 100 UNITS/ML SQ SCH ×2 (08:03→19:22)
[2021-01-13] MEDS: NIFEDIPINE XL 90 MG TABLET PO SCH (08:09)
[2021-01-13] MEDS: NAPROXEN 250 MG TAB PO SCH ×2 (08:09→17:02)
[2021-01-13] MEDS: METFORMIN ER 500 MG TAB PO SCH ×2 (08:10→17:02)
[2021-01-13] MEDS: METOPROLOL TAR 50 MG TAB PO SCH ×3 (08:10→17:09)
[2021-01-13] MEDS: hydroCHLOROthiazide 25 MG TAB PO SCH (08:11)
[2021-01-13] MEDS: IRBESARTAN 150 MG TAB PO SCH (08:11)
[2021-01-13] MEDS: GABAPENTIN 100 MG CAP PO SCH ×2 (08:12→19:23)
[2021-01-13] MEDS: CIPROFLOXACIN HCL 500 MG TAB PO SCH ×2 (08:12→19:23)
[2021-01-13] MEDS: NYSTATIN PWDR 100000 UNIT/GM TOP SCH ×2 (10:16→19:23)
[2021-01-13] MEDS: HYDROCODONE/APAP 5/325 MG TAB PO PRN (13:07)
[2021-01-13] MEDS: DOCUSATE NA/SENNA CONC 1 TAB PO SCH (19:22)
[2021-01-13] MEDS: MELATONIN 3 MG TABLET PO SCH (19:23)
[2021-01-13] MEDS: ATORVASTATIN 80 MG TAB PO SCH (19:23)
[2021-01-13] MEDS: CRANBERRY FRUIT EXTRACT 400 MG CAP PO SCH (19:23)
--- NOTE | 2021-01-13 21:37 | R.PN ---
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 SUBJECTIVE: Pt denied any depression. Pt denied any Shortness of Breath. WBC 9.4, Hgb 11.8, Plt 319, K 3.4, Glucose 119 to 365, prealbumin 17.6, UA: 1+ esterase, 3+ketones, C OVID-19 is negative. Ambulated 250' without and assistive device, 200' with a left hemiwalker, with contact guard assistan ce. VITAL SIGNS Temperature: 97.9 F SBP/DBP: 114/47 Pulse: 75 Resp: 16 MEDICATION ALLERGIES: No Known Drug Allergies (NKDA) ENVIRONMENTAL ALLERGIES: None Known - Substance Allergies None Known - Other Allergies None Known NURSING: - Shower allowing shower - Bladder care per protocol - Skin care per protocol PRECAUTIONS: - Weight Bearing Precaution NWB RUE - Fall Precaution Bed alarm TABS alarm Wheel chair alarm ACTIVITIES OOB only with supervision THERAPIES: - Dietary and Nutrition Adequate Nutrition. Nutritional Education. Nutritional Supplements. - Occupational Therapy Cognitive Retraining. ADL Training. Adaptive Equipment. Community Reintegration. Eating. Evaluate and Treat. Household Tasks. Indep. ADL's- Higher Level Functioning. Patient/Family Education. Safety Aspen reness. Transfer Training. UE Strengthening. - Speech Therapy Cognitive Training. Expressive Language Skills. Memory Strategies. Receptive Language Skills. Speech Intelligibility Training. - Physical Therapy Balance Training. Evaluate and Treat. Gait Training. LE ROM. LE Strengthening. Medical Equipment Asse ssment and Evaluation. Mobility Training. Modalities Training. Patient/Family Education. Safety Aware ness. Transfer Training. PHYSICAL EXAM - Gen Alert and awake Lying in bed No apparent distress Oriented to: person, time, and place - Skin No skin breakdown. Normacephalic - Eyes No abnormalities - ENMT No abnormalities - Neck No abnormalities No cervical adenopathy - CVS RRR - Chest No abnormalities - Abd Soft - GI Non distended Deferred - No abnormalities - Ext Mild right upper extremity hyperemia and edema. - MSK Mild to moderate right upper and lower extremity weakness - Neuro Mild to moderate right upper and lower extremity weakness - Psych No abnormalities ASSESSMENT: On 01/05/2021 Pt. presented to [facility] with sudden onse t of right-side weakness.Pt. is a 70 yo white female.On 01/05/2021 she was admitted to [facility] with diagnosis L CVA, uncontrolled diabetes mellitus.Her impa irment category is Stroke 01 - Right Body (Left Brain) (01.2).Pre-morbidly, Pt. was independent/mod- I in Locomotion, Safety Awareness, Social Cognition, Balance, Transfers Control, Sphincter Control, S elf-Care, Communication, and Endurance; and she had good Locomotion, Safety Awareness, Balance, Socia l Cognition, Transfers Control, Sphincter Control, Self-Care, Communication, and Endurance.Currently, she has deficits of Locomotion, Safety Awareness, Social Cognition, Balance, Transfers Control, Self -Care, Communication, and Endurance.Pt. is now referred to [facility] for acut e in-patient rehabilitation in order to maximize patient's functional independence in activities of d aily living, strength, ROM, and mobility.- Rehab Goal Patient has realistic goal of being discharged at assistance level Sup-IND to reside at Home with Fa shelby/Relatives. MDM/PLAN: - Physical Therapy Weakness - to improve, our physical therapists will perform initial evaluation of pt's status upon ad mission and devise an individualized program for Aquatic Therapy, Neuromuscular Reeducation, and Stre ngthening Poor balance - to improve, our physical therapists will perform initial evaluation of pt's status upo n admission and devise an individualized program for Balance Training Inability to transfer - to improve, our physical therapists will perform initial evaluation of pt's s tatus upon admission and devise an individualized program for Bed mobility Need in caregiver upon discharge - to improve, our physical therapists will perform initial evaluatio n of pt's status upon admission and devise an individualized program for Caregiver Training Poor endurance - to improve, our physical therapists will perform initial evaluation of pt's status u eleuterio admission and devise an individualized program for Endurance Training Gait dysfunction - to improve, our physical therapists will perform initial evaluation of pt's status upon admission and devise an individualized program for Gait Training, and Wheel Chair mobility Need for home safety evaluation - to improve, our physical therapists will perform initial evaluation of pt's status upon admission and devise an individualized program for Home Evaluation New precaution - to improve, our physical therapists will perform initial evaluation of pt's status u eleuterio admission and devise an individualized program for Patient precaution education Edema - to improve, our physical therapists will perform initial evaluation of pt's status upon admis arvin and devise an individualized program for Elevation Training, and Lymphedema Therapy - Occupational Therapy Weakness - to improve, our occupation therapists will perform initial evaluation of pt's status upon admission and devise an individualized program for Aquatic Therapy, Balance, Endurance, UE ROM, and U E strengthening ADL deficits - to improve, our occupation therapists will perform initial evaluation of pt's status u eleuterio admission and devise an individualized program for Bathing, Bed mobility, Community Reintegration , Cooking, Dressing, Eating, Fine Motor Skills, Grooming, Homemaking, Kitchen Mobility, Laundry, Laurel ent Education, Safety Awareness, Splinting - Positioning, Transfers(Toilet, Tub, Shower), and Wheel C hair Management Need for neonatal intensive care nurse - to improve, our occupation therapists will perform initial evaluation of pt's s tatus upon admission and devise an individualized program for Caregiver Training Cognitive deficits - to improve, our occupation therapists will perform initial evaluation of pt's st atus upon admission and devise an individualized program for Cognition - orientation - Other See attached MAR (Medication Administration Record) - Diet Type Continue Regular - Diet - Liquid Texture Continue Regular - Tube Feed Continue N/A - Bladder care per protocol - Weight Bearing Precaution NWB RUE WBAT right LE - Fall Precaution Bed alarm TABS alarm Wheel chair alarm - Skin care per protocol - Diet - Solid Texture Continue Regular - Shower allowing shower for Dementia, TBI, Stroke, or others - Balance for Weakness - Bed mobility for ADL deficits - Cognition - orientation for Dementia - Dressing Status: indep for ADL deficits - Eating for ADL deficits - Grooming Status: indep for ADL deficits - Toilet Transfer for ADL deficits Status: indep - Bed to Chair Transfer sbt Status: indep for ADL deficits - Tub Transfer for ADL deficits Status: indep - Hygiene for ADL deficits - Shower Transfer for ADL deficits Status: indep - Wheel Chair to Bed Transfer Status: indep for ADL deficits FUNCTIONAL STATUS: UPDATED AT WEEKLY TEAM CONFERENCE - Bladder Same accident frequency: 7-Ind - No accidents in the past 7 days - Bowel Same accident frequency: 7-Ind - No accidents in the past 7 days - Walking Same score based on distance walked: 0(N/A) Same score based on distance walked: 1(<=50ft) - Wheelchair Same score based on distance traveled: 0(N/A) FUNCTIONAL STATUS: - Self-Care A. Eating Ind B. Grooming Tamara C. Bathing Marilyn D. Dressing - Upper Marilyn E. Dressing - Lower modA F. Toileting sup - Sphincter Control G. Bladder control Marilyn H. Bowel control Marilyn - Transfers Control I. Bed/Chair/Wheelchair sup J. Toilet sup K. Tub/Shower sup - Locomotion L. Walk/Wheelchair (B) Marilyn M. Stairs modA - Communication N. Comprehension (B) sup O. Expression (B) sup - Social Cognition P. Social Interaction Tamara Q. Problem Solving Tamara R. Memory Tamara - Endurance Good - Balance Good - Safety Awareness Good QI SCORES: - Self-Care A. Eating 88-Not attempted due to medical condition or safety concerns B. Oral hygiene 03-Partial/moderate assistance C. Toileting hygiene 03-Partial/moderate assistance E. Shower/bathe self 88-Not attempted due to medical condition or safety concerns F. Upper body dressing 02-Substantial/maximal assistance G. Lower body dressing 02-Substantial/maximal assistance H. Putting on/taking off footwear 02-Substantial/maximal assistance - Mobility A. Roll left and right 03-Partial/moderate assistance B. Sit to lying 03-Partial/moderate assistance C. Lying to sitting on side of bed 03-Partial/moderate assistance D. Sit to stand 03-Partial/moderate assistance E. Chair/bik-kg-ojemq transfer 03-Partial/moderate assistance F. Toilet transfer 03-Partial/moderate assistance G. Car transfer 88-Not attempted due to medical condition or safety concerns I. Walk 10 feet 03-Partial/moderate assistance J. Walk 50 feet with two turns 88-Not attempted due to medical condition or safety concerns K. Walk 150 feet 88-Not attempted due to medical condition or safety concerns L. Walking 10 feet on uneven surfaces 88-Not attempted due to medical condition or safety concerns M. 1 step (curb) 88-Not attempted due to medical condition or safety concerns N. 4 steps 88-Not attempted due to medical condition or safety concerns O. 12 steps 88-Not attempted due to medical condition or safety concerns P. Picking up object 88-Not attempted due to medical condition or safety concerns R. Wheel 50 feet with two turns S. Wheel 150 feet - Bladder and Bowel Bladder continence Bowel continence - Endurance Fair - Balance Fair - Safety Awareness Fair CURRENT REPLACED BY [facility]. 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
[2021-01-14] MEDS: HYDROCODONE/APAP 5/325 MG TAB PO PRN ×2 (01:00→09:06)
[2021-01-14 04:53] LABS: Absolute Lymphocytes (CBC) 2.5 K/uL (0.7-4.9); Basophils % 0.6 % (0-1.3); Hematocrit 33.9 % (36.0-45.0); Lymphocytes % 21.6 % (15.3-44.8); MPV 7.8 fL (7.6-11.3); RBC Red Blood Cell Count 4.01 M/uL (3.86-4.86)
[2021-01-14 05:17] LABS: Albumin 2.7 g/dL (3.4-5.0); Magnesium 1.6 mg/dL (1.8-2.4); Prealbumin 18.7 mg/dL (20-40)
[2021-01-14] MEDS: INSULIN -REGULAR HUMAN 50 UNIT/0.5 ML ML SQ SCH ×4 (07:30→20:53)
[2021-01-14] MEDS: ENOXAPARIN 40 MG/0.4 ML SQ SCH (08:36)
[2021-01-14] MEDS: GABAPENTIN 100 MG CAP PO SCH ×2 (08:37→20:42)
[2021-01-14] MEDS: METFORMIN ER 500 MG TAB PO SCH ×2 (08:38→17:01)
[2021-01-14] MEDS: NAPROXEN 250 MG TAB PO SCH ×2 (08:39→17:02)
[2021-01-14] MEDS: INSULIN LISPRO 100 UNIT/1 ML SQ SCH ×3 (08:41→17:04)
[2021-01-14] MEDS: INSULIN GLARGINE 100 UNITS/ML SQ SCH ×2 (08:42→20:41)
[2021-01-14] MEDS: DOCUSATE NA/SENNA CONC 1 TAB PO SCH ×2 (08:43→20:00)
[2021-01-14] MEDS: POTASSIUM CL SA 10 MEQ TAB PO SCH (08:43)
[2021-01-14] MEDS: IRBESARTAN 150 MG TAB PO SCH (08:44)
[2021-01-14] MEDS: METOPROLOL TAR 50 MG TAB PO SCH ×2 (08:45→17:00)
[2021-01-14] MEDS: CRANBERRY FRUIT EXTRACT 400 MG CAP PO SCH ×2 (08:45→20:42)
[2021-01-14] MEDS: CIPROFLOXACIN HCL 500 MG TAB PO SCH ×2 (08:46→20:42)
[2021-01-14] MEDS: hydroCHLOROthiazide 25 MG TAB PO SCH (08:46)
[2021-01-14] MEDS: NYSTATIN PWDR 100000 UNIT/GM TOP SCH ×2 (08:47→20:43)
[2021-01-14] MEDS: NIFEDIPINE XL 90 MG TABLET PO SCH (08:47)
[2021-01-14] MEDS ORDERED: MAGNESIUM CITRATE 300 ML BOT PO ONE (13:06)
--- NOTE | 2021-01-14 16:35 | R.PN ---
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 SUBJECTIVE: Pt denied any depression. Pt denied any Shortness of Breath. WBC 11.5, Hgb 11.6, Plt 319, K 3.4, Glucose 150 to 251, prealbumin 18.7, UA: 1+ esterase, 3+ketones, COVID-19 is negative. Ambulated 600' without an assistive device, with contact guard assistance. Cognition exercises done with 88% to 98% accuracy. VITAL SIGNS Temperature: 97.9 F SBP/DBP: 142/59 Pulse: 80 Resp: 16 MEDICATION ALLERGIES: No Known Drug Allergies (NKDA) ENVIRONMENTAL ALLERGIES: None Known - Substance Allergies None Known - Other Allergies None Known NURSING: - Shower allowing shower - Bladder care per protocol - Skin care per protocol PRECAUTIONS: - Weight Bearing Precaution NWB RUE - Fall Precaution Bed alarm TABS alarm Wheel chair alarm ACTIVITIES OOB only with supervision THERAPIES: - Dietary and Nutrition Adequate Nutrition. Nutritional Education. Nutritional Supplements. - Occupational Therapy Cognitive Retraining. ADL Training. Adaptive Equipment. Community Reintegration. Eating. Evaluate and Treat. Household Tasks. Indep. ADL's- Higher Level Functioning. Patient/Family Education. Safety Aspen reness. Transfer Training. UE Strengthening. - Speech Therapy Cognitive Training. Expressive Language Skills. Memory Strategies. Receptive Language Skills. Speech Intelligibility Training. - Physical Therapy Balance Training. Evaluate and Treat. Gait Training. LE ROM. LE Strengthening. Medical Equipment Asse ssment and Evaluation. Mobility Training. Modalities Training. Patient/Family Education. Safety Aware ness. Transfer Training. PHYSICAL EXAM - Gen Alert and awake Lying in bed No apparent distress Oriented to: person, time, and place - Skin No skin breakdown. Normacephalic - Eyes No abnormalities - ENMT No abnormalities - Neck No abnormalities No cervical adenopathy - CVS RRR - Chest No abnormalities - Abd Soft - GI Non distended Deferred - No abnormalities - Ext Mild right upper extremity hyperemia and edema. - MSK Mild to moderate right upper and lower extremity weakness - Neuro Mild to moderate right upper and lower extremity weakness - Psych No abnormalities ASSESSMENT: On 01/05/2021 Pt. presented to [facility] with sudden onse t of right-side weakness.Pt. is a 70 yo white female.On 01/05/2021 she was admitted to [facility] with diagnosis L CVA, uncontrolled diabetes mellitus.Her impa irment category is Stroke 01 - Right Body (Left Brain) (01.2).Pre-morbidly, Pt. was independent/mod- I in Locomotion, Safety Awareness, Social Cognition, Balance, Transfers Control, Sphincter Control, S elf-Care, Communication, and Endurance; and she had good Locomotion, Safety Awareness, Balance, Socia l Cognition, Transfers Control, Sphincter Control, Self-Care, Communication, and Endurance.Currently, she has deficits of Locomotion, Safety Awareness, Social Cognition, Balance, Transfers Control, Self -Care, Communication, and Endurance.Pt. is now referred to [facility] for acut e in-patient rehabilitation in order to maximize patient's functional independence in activities of d aily living, strength, ROM, and mobility.- Rehab Goal Patient has realistic goal of being discharged at assistance level Sup-IND to reside at Home with Fa shelby/Relatives. MDM/PLAN: - Physical Therapy Weakness - to improve, our physical therapists will perform initial evaluation of pt's status upon a dmission and devise an individualized program for Aquatic Therapy, Neuromuscular Reeducation, and Str engthening Poor balance - to improve, our physical therapists will perform initial evaluation of pt's status up on admission and devise an individualized program for Balance Training Inability to transfer - to improve, our physical therapists will perform initial evaluation of pt's status upon admission and devise an individualized program for Bed mobility Need in caregiver upon discharge - to improve, our physical therapists will perform initial evaluati on of pt's status upon admission and devise an individualized program for Caregiver Training Poor endurance - to improve, our physical therapists will perform initial evaluation of pt's status upon admission and devise an individualized program for Endurance Training Gait dysfunction - to improve, our physical therapists will perform initial evaluation of pt's statu s upon admission and devise an individualized program for Gait Training, and Wheel Chair mobility Need for home safety evaluation - to improve, our physical therapists will perform initial evaluatio n of pt's status upon admission and devise an individualized program for Home Evaluation New precaution - to improve, our physical therapists will perform initial evaluation of pt's status upon admission and devise an individualized program for Patient precaution education Edema - to improve, our physical therapists will perform initial evaluation of pt's status upon admi ssion and devise an individualized program for Elevation Training, and Lymphedema Therapy - Occupational Therapy Weakness - to improve, our occupation therapists will perform initial evaluation of pt's status upon admission and devise an individualized program for Aquatic Therapy, Balance, Endurance, UE ROM, and UE strengthening ADL deficits - to improve, our occupation therapists will perform initial evaluation of pt's status upon admission and devise an individualized program for Bathing, Bed mobility, Community Reintegratio n, Cooking, Dressing, Eating, Fine Motor Skills, Grooming, Homemaking, Kitchen Mobility, Laundry, Pat ient Education, Safety Awareness, Splinting - Positioning, Transfers(Toilet, Tub, Shower), and Wheel Chair Management Need for rn transitional care - to improve, our occupation therapists will perform initial evaluation of pt's status upon admission and devise an individualized program for Caregiver Training Cognitive deficits - to improve, our occupation therapists will perform initial evaluation of pt's s tatus upon admission and devise an individualized program for Cognition - orientation - Other See attached MAR (Medication Administration Record) - Diet Type Continue Regular - Diet - Liquid Texture Continue Regular - Tube Feed Continue N/A - Bladder care per protocol - Weight Bearing Precaution NWB RUE WBAT right LE - Fall Precaution Bed alarm TABS alarm Wheel chair alarm - Skin care per protocol - Diet - Solid Texture Continue Regular - Shower allowing shower for Dementia, TBI, Stroke, or others - Balance for Weakness - Bed mobility for ADL deficits - Cognition - orientation for Dementia - Dressing Status: indep for ADL deficits - Eating for ADL deficits - Grooming Status: indep for ADL deficits - Toilet Transfer for ADL deficits Status: indep - Bed to Chair Transfer sbt Status: indep for ADL deficits - Tub Transfer for ADL deficits Status: indep - Hygiene for ADL deficits - Shower Transfer for ADL deficits Status: indep - Wheel Chair to Bed Transfer Status: indep for ADL deficits FUNCTIONAL STATUS: UPDATED AT WEEKLY TEAM CONFERENCE - Bladder Same accident frequency: 7-Ind - No accidents in the past 7 days - Bowel Same accident frequency: 7-Ind - No accidents in the past 7 days - Walking Same score based on distance walked: 0(N/A) Same score based on distance walked: 1(<=50ft) - Wheelchair Same score based on distance traveled: 0(N/A) FUNCTIONAL STATUS: - Self-Care A. Eating Ind B. Grooming Tamara C. Bathing Marilyn D. Dressing - Upper Marilyn E. Dressing - Lower modA F. Toileting sup - Sphincter Control G. Bladder control Marilyn H. Bowel control Marilyn - Transfers Control I. Bed/Chair/Wheelchair sup J. Toilet sup K. Tub/Shower sup - Locomotion L. Walk/Wheelchair (B) Marilyn M. Stairs modA - Communication N. Comprehension (B) sup O. Expression (B) sup - Social Cognition P. Social Interaction Tamara Q. Problem Solving Tamraa R. Memory Tamara - Endurance Good - Balance Good - Safety Awareness Good QI SCORES: - Self-Care A. Eating 88-Not attempted due to medical condition or safety concerns B. Oral hygiene 03-Partial/moderate assistance C. Toileting hygiene 03-Partial/moderate assistance E. Shower/bathe self 88-Not attempted due to medical condition or safety concerns F. Upper body dressing 02-Substantial/maximal assistance G. Lower body dressing 02-Substantial/maximal assistance H. Putting on/taking off footwear 02-Substantial/maximal assistance - Mobility A. Roll left and right 03-Partial/moderate assistance B. Sit to lying 03-Partial/moderate assistance C. Lying to sitting on side of bed 03-Partial/moderate assistance D. Sit to stand 03-Partial/moderate assistance E. Chair/[id number] transfer 03-Partial/moderate assistance F. Toilet transfer 03-Partial/moderate assistance G. Car transfer 88-Not attempted due to medical condition or safety concerns I. Walk 10 feet 03-Partial/moderate assistance J. Walk 50 feet with two turns 88-Not attempted due to medical condition or safety concerns K. Walk 150 feet 88-Not attempted due to medical condition or safety concerns L. Walking 10 feet on uneven surfaces 88-Not attempted due to medical condition or safety concerns M. 1 step (curb) 88-Not attempted due to medical condition or safety concerns N. 4 steps 88-Not attempted due to medical condition or safety concerns O. 12 steps 88-Not attempted due to medical condition or safety concerns P. Picking up object 88-Not attempted due to medical condition or safety concerns R. Wheel 50 feet with two turns S. Wheel 150 feet - Bladder and Bowel Bladder continence Bowel continence - Endurance Fair - Balance Fair - Safety Awareness Fair CURRENT [facility]. 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
[2021-01-14] MEDS: TRAZODONE 50 MG TABLET PO SCH (20:41)
[2021-01-14] MEDS: MAGNESIUM OXIDE 400 MG TAB PO SCH (20:42)
[2021-01-14] MEDS: ATORVASTATIN 80 MG TAB PO SCH (20:42)
[2021-01-14] MEDS: MELATONIN 3 MG TABLET PO SCH (20:43)
[2021-01-14] MEDS: ENSURE HIGH PROTEIN 237 ML CAN PO SCH (20:44)
[2021-01-15] MEDS: INSULIN -REGULAR HUMAN 50 UNIT/0.5 ML ML SQ SCH ×4 (07:28→20:09)
[2021-01-15] MEDS: CALCIUM CARB 500MG/VIT D 200 IU TAB PO SCH (07:53)
[2021-01-15] MEDS: NYSTATIN PWDR 100000 UNIT/GM TOP SCH ×2 (07:53→20:07)
[2021-01-15] MEDS: POTASSIUM CL SA 10 MEQ TAB PO SCH (07:53)
[2021-01-15] MEDS: ENOXAPARIN 40 MG/0.4 ML SQ SCH (07:53)
[2021-01-15] MEDS: MAGNESIUM OXIDE 400 MG TAB PO SCH ×2 (07:54→20:06)
[2021-01-15] MEDS: hydroCHLOROthiazide 25 MG TAB PO SCH (07:54)
[2021-01-15] MEDS: CIPROFLOXACIN HCL 500 MG TAB PO SCH (07:54)
[2021-01-15] MEDS: DOCUSATE NA/SENNA CONC 1 TAB PO SCH ×2 (07:54→20:08)
[2021-01-15] MEDS: IRBESARTAN 150 MG TAB PO SCH (07:55)
[2021-01-15] MEDS: GABAPENTIN 100 MG CAP PO SCH ×2 (07:55→20:07)
[2021-01-15] MEDS: CRANBERRY FRUIT EXTRACT 400 MG CAP PO SCH ×2 (07:55→20:06)
[2021-01-15] MEDS: METFORMIN ER 500 MG TAB PO SCH ×2 (07:55→16:58)
[2021-01-15] MEDS: NIFEDIPINE XL 90 MG TABLET PO SCH (07:56)
[2021-01-15] MEDS: INSULIN LISPRO 100 UNIT/1 ML SQ SCH ×3 (07:57→17:00)
[2021-01-15] MEDS: INSULIN GLARGINE 100 UNITS/ML SQ SCH ×2 (07:58→20:06)
[2021-01-15] MEDS: METOPROLOL TAR 50 MG TAB PO SCH ×2 (07:58→16:57)
[2021-01-15] MEDS: NAPROXEN 250 MG TAB PO SCH ×2 (08:00→16:58)
[2021-01-15] MEDS: ENSURE HIGH PROTEIN 237 ML CAN PO SCH ×2 (08:00→20:06)
--- NOTE | 2021-01-15 10:02 | P.RH.PN ---
Estimated Length of Stay: 11 Expected Discharge Date: 01/23/21 Discharge Disposition Plan: Home Family Support: Yes Half-Way Goal: Mobility, Transfers, Self Care Vital Signs: Last Vital Signs Temp 96.8 F 01/15/21 07:14 Pulse 92 H 01/15/21 07:58 Resp 16 01/15/21 07:14 BP 135/64 01/15/21 07:58 Pulse Ox 97 01/15/21 07:14 Laboratory: Laboratory Last Values WBC 11.50 K/uL (4.3-10.9) H D 01/14/21 04:36 RBC 4.01 M/uL (3.86-4.86) 01/14/21 04:36 Hgb 11.6 g/dL (12.0-15.0) L 01/14/21 04:36 Hct 33.9 % (36.0-45.0) L 01/14/21 04:36 MCV 84.5 fL (80-100) 01/14/21 04:36 MCH 28.9 pg (27.0-35.0) 01/14/21 04:36 MCHC 34.3 g/dL (32.0-36.0) 01/14/21 04:36 RDW 14.8 % (12.1-15.2) 01/14/21 04:36 Plt Count 341 K/uL (152-406) 01/14/21 04:36 MPV 7.8 fL (7.6-11.3) 01/14/21 04:36 Neutrophils % 68.1 % (41.7-73.7) 01/14/21 04:36 Lymphocytes % 21.6 % (15.3-44.8) 01/14/21 04:36 Monocytes % 6.3 % (3.3-12.3) 01/14/21 04:36 Eosinophils % 3.4 % (0-4.4) 01/14/21 04:36 Basophils % 0.6 % (0-1.3) 01/14/21 04:36 Absolute Neutrophils 7.8 K/uL (1.8-8.0) 01/14/21 04:36 Absolute Lymphocytes 2.5 K/uL (0.7-4.9) 01/14/21 04:36 Absolute Monocytes 0.7 K/uL (0.1-1.3) 01/14/21 04:36 Absolute Eosinophils 0.4 K/uL (0-0.5) 01/14/21 04:36 Absolute Basophils 0.1 K/uL (0-0.5) 01/14/21 04:36 Sodium 133 mmol/L (136-145) L 01/14/21 04:36 Potassium 4.0 mmol/L (3.5-5.1) 01/14/21 04:36 Chloride 98 mmol/L (98-107) 01/14/21 04:36 Carbon Dioxide 26 mmol/L (21-32) 01/14/21 04:36 BUN 49 mg/dL (7-18) H D 01/14/21 04:36 Creatinine 1.10 mg/dL (0.55-1.3) 01/14/21 04:36 Estimated GFR 49 mL/min (=/>90) L 01/14/21 04:36 Glucose 150 mg/dL (74-106) H 01/14/21 04:36 POC Glucose 222 mg/dL (65-120) H 01/15/21 07:26 Calcium 8.4 mg/dL (8.5-10.1) L 01/14/21 04:36 Magnesium 1.6 mg/dL (1.8-2.4) L 01/14/21 04:36 Albumin 2.7 g/dL (3.4-5.0) L 01/14/21 04:36 Prealbumin 18.7 mg/dL (20-40) L 01/14/21 04:36 Urine Color Yellow (Yellow) 01/12/21 17:05 Urine Appearance Clear (Clear) 01/12/21 17:05 Urine pH 5.5 (5.0-7.0) 01/12/21 17:05 Ur Specific [place] 1.020 (1.005-1.030) 01/12/21 17:05 Glucose (UA)(Auto) 3+ (Negative) H 01/12/21 17:05 Urine Ketones 1+ (Negative) H 01/12/21 17:05 Urine Blood Negative (Negative) 01/12/21 17:05 Urine Nitrite Negative (Negative) 01/12/21 17:05 Urine Bilirubin Negative (Negative) 01/12/21 17:05 Urine Urobilinogen 0.2 mg/dL (0.2-1.0) 01/12/21 17:05 Ur Leukocyte Esterase 1+ (Negative) H 01/12/21 17:05 Urine RBC <5 /HPF (NONE SEEN) 01/12/21 17:05 Urine WBC <5 /HPF (<5) 01/12/21 17:05 Ur Squamous Epith Cells <5 /HPF (NONE SEEN) 01/12/21 17:05 Urine Bacteria <20 /HPF (<20) 01/12/21 17:05 Urine Mucus Light /HPF (NONE SEEN) 01/12/21 17:05 Urine Culture Reflexed Not needed 01/12/21 17:05 Urine Total Protein Negative (Negative) 01/12/21 17:05 SARS-CoV-2 Rap RNA(RT-PCR) Negative (NEGATIVE) 01/12/21 15:20 Weight: 220 lb Left Arm Skin Alteration: Bruising Skin Temperature: Cool Skin Color: Normal Skin Tone Skin Turgor: Normal Skin Tone: Elastic Wound Present: No Physician Update: Labs reviewed and are stable. She is making good overal progress with all therapy. MOCA 18/20, poor memory, attention and problem solving. Gets flustered easily. She had a good BM yesterday. Labs reviewed and are stable. Walking 250' without an assistive device and contact guard. Easily distracted and may lose balance. Up and down 5 steps without and assistive device and contact guard. Also contact guard with transfers. Functional Improvement: Patient has only been in rehab a few days, however demonstrates good work ethic, and shows progress w/ following instructions well, and retaining information. Patient tends to become easily distracted. 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 Please see the Rehabilitation Signature page for all necessary signatures.
[2021-01-15] MEDS: HYDROCODONE/APAP 5/325 MG TAB PO PRN (14:57)
[2021-01-15] MEDS: MELATONIN 3 MG TABLET PO SCH (20:08)
[2021-01-15] MEDS: ATORVASTATIN 80 MG TAB PO SCH (20:08)
[2021-01-15] MEDS: TRAZODONE 50 MG TABLET PO SCH (20:08)
[2021-01-16] MEDS: HYDROCODONE/APAP 5/325 MG TAB PO PRN (02:36)
[2021-01-16] MEDS: ENOXAPARIN 40 MG/0.4 ML SQ SCH (06:52)
[2021-01-16] MEDS: NYSTATIN PWDR 100000 UNIT/GM TOP SCH ×2 (06:56→19:39)
[2021-01-16] MEDS: INSULIN -REGULAR HUMAN 50 UNIT/0.5 ML ML SQ SCH ×4 (07:10→20:50)
[2021-01-16] MEDS: INSULIN GLARGINE 100 UNITS/ML SQ SCH ×2 (08:20→19:37)
[2021-01-16] MEDS: INSULIN LISPRO 100 UNIT/1 ML SQ SCH ×3 (08:21→16:12)
[2021-01-16] MEDS: NIFEDIPINE XL 90 MG TABLET PO SCH (08:23)
[2021-01-16] MEDS: POTASSIUM CL SA 10 MEQ TAB PO SCH (08:24)
[2021-01-16] MEDS: hydroCHLOROthiazide 25 MG TAB PO SCH (08:24)
[2021-01-16] MEDS: ENSURE HIGH PROTEIN 237 ML CAN PO SCH ×2 (08:25→19:38)
[2021-01-16] MEDS: IRBESARTAN 150 MG TAB PO SCH (08:25)
[2021-01-16] MEDS: CRANBERRY FRUIT EXTRACT 400 MG CAP PO SCH ×2 (08:25→19:37)
[2021-01-16] MEDS: NAPROXEN 250 MG TAB PO SCH ×2 (08:26→17:22)
[2021-01-16] MEDS: DOCUSATE NA/SENNA CONC 1 TAB PO SCH ×2 (08:26→19:40)
[2021-01-16] MEDS: MAGNESIUM OXIDE 400 MG TAB PO SCH ×2 (08:27→19:38)
[2021-01-16] MEDS: GABAPENTIN 100 MG CAP PO SCH ×2 (08:27→19:39)
[2021-01-16] MEDS: METFORMIN ER 500 MG TAB PO SCH ×2 (08:28→17:22)
[2021-01-16] MEDS: CALCIUM CARB 500MG/VIT D 200 IU TAB PO SCH (08:28)
[2021-01-16] MEDS: METOPROLOL TAR 50 MG TAB PO SCH ×2 (08:28→16:34)
[2021-01-16] MEDS: ONDANSETRON 4 MG (ODT) TAB PO PRN (12:30)
--- OUTSIDE RECORDS SUMMARY | 2021-01-16 18:14 | XMS REPORT | Continuity of Care Document ---
:1950 Author Organization [facility] t Address [address] [place] [address] Care Team Providers Name Role Phone LITO Attending Clinician Unavailable FELIBERTO MILLER Attending Clinician Unavailable FELIEBRTO MILLER Admitting Clinician Unavailable Payers Payer Name Policy Type Policy Number Effective Date Expiration Date S ledy MEDICARE A B [id number] 2013 00:00:00 GENERIC MEDICARE [id number] 2020 SUPPLEMENT 00:00:00 Problems This patient has no known problems. Allergies, Adverse Reactions, Alerts Allergy Allergy Status Severity Reaction(s) Onset Inactive Treating Comm ents Source Name Type Date Date Clinician NO KNOWN Allergy Active [facility] Medications This patient has no [...] ID 2021-01-05 2021-01-12 Inpatient ER SHARATH MORSE [facility] Neuro ICU [id number] [facility] 18:51:00 12:41:00 Results Test Description Test Time Test Comments Results Result Comments Source POCT-GLUCOSE METER 2021-01-12 08:55:56 Test Item Value Reference Range Interpretation Comme nts POC-GLUCOSE METER (BEAKER) 290 mg/dL 70-110 H : TESTED AT [facility] 6720 MP (test code = 1538) [place], [address]: Remote Control Mirror Installer/Techni kenzie ID = [id number] for Nadiya Alonso [id number] 05:19:28 Test Item Value Reference Range Interpretation Comments MAGNESIUM (BEAKER) (test code = 1.6 mg/dL 1.6-2.6 627) Remote Control Mirror Installer ID - CONOR [id number] 05:19:28 Test Item Value Reference Range Interpretation Comments PHOSPHORUS (BEAKER) (test code = 4.0 mg/dL 2.3-4.7 604) Remote Control Mirror Installer ID - CONOR LBASIC METABOLIC [id number] 05:19:27 Test Item Value Reference Range Interpretation [...] S NOT APPLICABLE FOR DIALYSIS PATIEN TS. Remote Control Mirror Installer ID - CONOR LCBC W/PLT COUNT & AUTO [id number] 05:09:03 Test Item Value Reference Range Interpretation [...] PERCENT (BEAKER) (test code = 2801) POCT-GLUCOSE [id number] 23:33:30 Test Item Value Reference Range Interpretation Comments POC-GLUCOSE METER 118 mg/dL 70-110 H : TESTED A T [facility] 6720 (BEAKER) (test code = [facility], 1538) [address]: Remote Control Mirror Installer/Techni kenzie ID = [id number] for Kenia Stover POCT-GLUCOSE [id number] 16:42:37 Test Item Value Reference Range Interpretation Comments POC-GLUCOSE METER 179 mg/dL 70-110 H : TESTED A T [facility] 6720 (BEAKER) (test code = [facility], 1538) [address]: Remote Control Mirror Installer/Techni kenzie ID = [id number] for An rayshawn, Nadiya POCT-GLUCOSE [id number] 12:48:21 Test Item Value Reference Range Interpretation Comments POC-GLUCOSE METER 414 mg/dL 70-110 HH : TESTED A T [facility] 6720 (BEAKER) (test code = [facility], 1538) [address]: Remote Control Mirror Installer/Techni kenzie ID = [id number] for An rayshawn, Nadiya POCT-GLUCOSE [id number] 07:23:54 Test Item Value Reference Range Interpretation Comments POC-GLUCOSE METER 307 mg/dL 70-110 H : TESTED A T [facility] 6720 (BEAKER) (test code = [facility], 1538) [address]: Remote Control Mirror Installer/Techni kenzie ID = [id number] for Sae field (contract)Ivone [id number] 05:34:22 Test Item Value Reference Range Interpretation Comments MAGNESIUM (BEAKER) (test code = 1.7 mg/dL 1.6-2.6 627) Remote Control Mirror Installer ID - TRISH [id number] 05:34:22 Test Item Value Reference Range Interpretation Comments PHOSPHORUS (BEAKER) (test code = 3.6 mg/dL 2.3-4.7 604) Remote Control Mirror Installer ID - TRISH MBASIC METABOLIC [id number] 05:34:21 Test Item Value Reference Range Interpretation [...] S NOT APPLICABLE FOR DIALYSIS PATIEN TS. Remote Control Mirror Installer ID - TRISH MCBC W/PLT COUNT & AUTO [id number] 04:48:58 Test Item Value Reference Range Interpretation [...] PERCENT (BEAKER) (test code = 2801) POCT-GLUCOSE [id number] 21:55:36 Test Item Value Reference Range Interpretation Comments POC-GLUCOSE METER 308 mg/dL 70-110 H : TESTED A T [facility] 6720 (BEAKER) (test code = [facility], [facility]8) [address]: Remote Control Mirror Installer/Techni kenzie ID = [id number] for Fang Tracey POCT-GLUCOSE [id number] 16:47:18 Test Item Value Reference Range Interpretation Comments POC-GLUCOSE METER 349 mg/dL 70-110 H : TESTED A T [facility] 6720 (BEAKER) (test code = [facility], [facility]8) [address]: Remote Control Mirror Installer/Techni kenzie ID = [id number] for MIKE COLMENARESL POCT-GLUCOSE [id number] 12:07:39 Test Item Value Reference Range Interpretation Comments POC-GLUCOSE METER 429 mg/dL 70-110 HH : TESTED A T [facility] 6720 (BEAKER) (test code = [facility], 1538) [address]: Remote Control Mirror Installer/Techni kenzie ID = [id number] for CAMI MATHUR POCT-GLUCOSE [id number] 09:13:52 Test Item Value Reference Range Interpretation Comments POC-GLUCOSE METER 357 mg/dL 70-110 H : TESTED A T [facility] 6720 (BEAKER) (test code = [facility], 1538) 10[address]: Remote Control Mirror Installer/Techni kenzie ID = [id number] for CAMI MATHUR [id number] 08:01:34 Test Item Value Reference Range Interpretation Comments PHOSPHORUS (BEAKER) (test code = 3.4 mg/dL 2.3-4.7 604) Remote Control Mirror Installer ID - CONOR [id number] 07:20:33 Test Item Value Reference Range Interpretation Comments MAGNESIUM (BEAKER) (test code = 1.9 mg/dL 1.6-2.6 627) Remote Control Mirror Installer ID - CONOR LBASIC METABOLIC [id number] 07:20:32 Test Item Value Reference Range Interpretation [...] S NOT APPLICABLE FOR DIALYSIS PATIEN TS. Remote Control Mirror Installer ID - CONOR LCBC W/PLT COUNT & AUTO [id number] 07:02:47 Test Item Value Reference Range Interpretation [...] PERCENT (BEAKER) (test code = 2801) POCT-GLUCOSE [id number] 00:19:20 Test Item Value Reference Range Interpretation Comments POC-GLUCOSE METER 390 mg/dL 70-110 H : TESTED Julissa Mckeon [facility] 6720 (BEAKER) (test code = [facility] [place], 1538) [address]: Remote Control Mirror Installer/Techni kenzie ID = [id number] for Fang Tracey POCT-GLUCOSE [id number] 18:02:03 Test Item Value Reference Range Interpretation Comments POC-GLUCOSE METER 390 mg/dL 70-110 H : TESTED A T [facility] 6720 (RADHA) (test code = [facility] [place] [facility], 1538) [address]: Remote Control Mirror Installer/Techni kenzie ID = [id number] for CAMI MATHUR POCT-GLUCOSE [id number] 13:25:11 Test Item Value Reference Range Interpretation Comments POC-GLUCOSE METER 449 mg/dL 70-110 HH : Notified RN/MD: (RADHA) (test code = TESTED AT [facility] 6720 1538) [facility], [address]: Remote Control Mirror Installer/Techni kenzie ID = [id number] for CAMI MATHUR POCT-GLUCOSE [id number] 08:48:27 Test Item Value Reference Range Interpretation Comments POC-GLUCOSE METER 347 mg/dL 70-110 H : Notified RN/MD: (RADHA) (test code = TESTED AT [place] [address] 1538) [facility], [address]: Remote Control Mirror Installer/Techni kenzie ID = [id number] for CAMI MATHUR CBC W/PLT COUNT & AUTO [id number] 07:45:14 Test Item Value Reference Range Interpretation [...] (BEAKER) (test code = 2801) BASIC METABOLIC [id number] 07:42:41 Test Item Value Reference Range Interpretation [...] S NOT APPLICABLE FOR DIALYSIS PATIEN TS. Remote Control Mirror Installer ID - RAÚL [id number] 07:42:40 Test Item Value Reference Range Interpretation Comments MAGNESIUM (BEAKER) 1.7 mg/dL 1.6-2.6 Specimen slightly (test code = 627) hemolyzed Remote Control Mirror Installer ID - RAÚL [id number] 07:42:40 Test Item Value Reference Range Interpretation Comments PHOSPHORUS (BEAKER) 3.6 mg/dL 2.3-4.7 Specimen slightly (test code = 604) hemolyzed Remote Control Mirror Installer ID Carmenza OLSEN WPOCT-GLUCOSE [id number] 21:45:21 Test Item Value Reference Range Interpretation Comments POC-GLUCOSE METER 331 mg/dL 70-110 H : TESTED A T [facility] 6720 (BEAKER) (test code = [facility], 153) [address]: Remote Control Mirror Installer/Techni kenzie ID = [id number] for Homar Russo POCT-GLUCOSE [id number] 17:30:00 Test Item Value Reference Range Interpretation Comments POC-GLUCOSE METER 299 mg/dL 70-110 H : TESTED A T [facility] 6720 (BEAKER) (test code = [facility], 153) [address]: Remote Control Mirror Installer/Techni kenzie ID = [id number] for An derson, Nadiya POCT-GLUCOSE [id number] 13:29:42 Test Item Value Reference Range Interpretation Comments POC-GLUCOSE METER 352 mg/dL 70-110 H : TESTED A T [facility] 6720 (BEAKER) (test code = [facility], 1538) [address]: Remote Control Mirror Installer/Techni kenzie ID = [id number] for Maxine Mixon POCT-GLUCOSE [id number] 08:55:09 Test Item Value Reference Range Interpretation Comments POC-GLUCOSE METER 304 mg/dL 70-110 H : TESTED A T [facility] 6720 (BEAKER) (test code = [facility], 153) [address]: Remote Control Mirror Installer/Techni kenzie ID = [id number] for An derson, Nadiya CBC W/PLT COUNT & AUTO [id number] 07:29:43 Test Item Value Reference Range Interpretation [...] (BEAKER) (test code = 2801) BASIC METABOLIC [id number] 05:34:55 Test Item Value Reference Range Interpretation [...] S NOT APPLICABLE FOR DIALYSIS PATIEN TS. Remote Control Mirror Installer ID - RAÚL [id number] 05:34:54 Test Item Value Reference Range Interpretation Comments MAGNESIUM (BEAKER) 1.5 mg/dL 1.6-2.6 L Specimen slightly (test code = 627) hemolyzed Remote Control Mirror Installer ID - RAÚL [id number] 05:34:54 Test Item Value Reference Range Interpretation Comments PHOSPHORUS (BEAKER) 3.2 mg/dL 2.3-4.7 Specimen slightly (test code = 604) hemolyzed Remote Control Mirror Installer ID Carmenza OLSEN WSARS-COV2/RT-PCR ([facility])2021-01-08 00:23:58 Test Item Value Reference Range Interpretation Comments SARS-COV2/RT-PCR (test Negative Not Detected, Negative, code = 3591751) See external report for linked test SARS-COV-[address] [facility] ROSENDO (test code = 0946555) Negative result for this test determines that [...] 564(g) of the Act.Fact Sheet for Healthcare Providers:https://www.[employer].avocadostore/sites/default/files/product/documents/Fact_Shee z_US_Wezcdouhe_Mgxz_KTWI-ZaS-6.pdfFact Sheet for Healthcare Patients:https://www.[employer].avocadostore/sites/default/files/product/ documents/Mqrb_Mblkf_Kqbfzlti_Xjnp_SAZT-NdN-4.pdfPerforming Laboratory:[facility], [place] [address]LMIX-MIXMYAO METER 2021-01-07 20:55:22 Test Item Value Reference Range Interpretation Comments POC-GLUCOSE METER 307 mg/dL 70-110 H : TESTED A T [facility] 6720 (RADHA) (test code = [facility], 1538) [address]: Remote Control Mirror Installer/Techni kenzie ID = [id number] for Holland hamlin (contract)Geraldo POCT-GLUCOSE [id number] 18:16:42 Test Item Value Reference Range Interpretation Comments POC-GLUCOSE METER 343 mg/dL 70-110 H : TESTED A T [facility] 6720 (BEAKER) (test code = K[facility] Wil[place] [facility], 1538) [address]: Remote Control Mirror Installer/Techni kenzie ID = [id number] for BOY FISCHER POCT-GLUCOSE [id number] 11:38:09 Test Item Value Reference Range Interpretation Comments POC-GLUCOSE METER 307 mg/dL 70-110 H : TESTED A T [facility] 6720 (BEAKER) (test code [facility], = 1538) [address]: Remote Control Mirror Installer/Techni kenzie ID = [id number] for Kostas-Lefty s Marie POCT-GLUCOSE [id number] 08:02:28 Test Item Value Reference Range Interpretation Comments POC-GLUCOSE METER 237 mg/dL 70-110 H : TESTED A T [facility] 6720 (BEAKER) (test code [facility], = 1538) [address]: Remote Control Mirror Installer/Techni kenzie ID = [id number] for Kostas-Marshallga s, Marie [id number] 03:44:24 Test Item Value Reference Range Interpretation Comments PHOSPHORUS (BEAKER) (test code = 3.9 mg/dL 2.3-4.7 604) Remote Control Mirror Installer ID - TRISH MBASIC METABOLIC [id number] 03:44:23 Test Item Value Reference Range Interpretation [...] S NOT APPLICABLE FOR DIALYSIS PATIEN TS. Remote Control Mirror Installer ID - TRISH [id number] 03:44:23 Test Item Value Reference Range Interpretation Comments MAGNESIUM (BEAKER) (test code = 1.7 mg/dL 1.6-2.6 627) Remote Control Mirror Installer ID - TRISH MCBC W/PLT COUNT & AUTO [id number] 03:27:18 Test Item Value Reference Range Interpretation [...] PERCENT (BEAKER) (test code = 2801) POCT-GLUCOSE [id number] 03:23:46 Test Item Value Reference Range Interpretation Comments POC-GLUCOSE METER 180 mg/dL 70-110 H : TESTED A T [facility] 6720 (BEAKER) (test code = [facility], 1538) [address]: Remote Control Mirror Installer/Techni kenzie ID = [id number] for NICOLE POWERS POCT-GLUCOSE [id number] 22:13:28 Test Item Value Reference Range Interpretation Comments POC-GLUCOSE METER 187 mg/dL 70-110 H : TESTED A T [facility] 6720 (BEAKER) (test code = [facility], 1538) [address]: Remote Control Mirror Installer/Techni kenzie ID = [id number] for Oneyda Salas MR, BRAIN, WITHOUT [id number] 20:05:00Reason for exam:->Ischemic Stroke EvaluationKA[facility]: ELANABAKARI : 1950 Sex: FFINAL [...] Date/Time: 01/06/2021 20:05:22 URINALYSIS W/ REFLEX URINE [id number] 14:32:30 Test Item Value Reference Range Interpretation [...] = 1521) SOURCE(BEAKER) (test code = 2795) Remote Control Mirror Installer ID - [auto]Remote Control Mirror Installer ID - [id number] 13:15:40 Test Item Value Reference Range Interpretation Comments RPR SCREEN (BEAKER) (test code = Nonreactive Nonreactive 420) POCT-GLUCOSE [id number] 12:47:57 Test Item Value Reference Range Interpretation Comments POC-GLUCOSE METER 244 mg/dL 70-110 H : TESTED A T [facility] 6720 (BEAKER) (test code = [facility] Chung [facility], 1538) [address]: Remote Control Mirror Installer/Techni kenzie ID = [id number] for Ar duanerong Latesa POCT-GLUCOSE [id number] 07:15:12 Test Item Value Reference Range Interpretation Comments POC-GLUCOSE METER 142 mg/dL 70-110 H : TESTED A T [facility] 6720 (BEAKER) (test code = [facility], 1538) [address]: Remote Control Mirror Installer/Techni kenzie ID = [id number] for Inge Booker CT, BRAIN, WITHOUT [id number] 07:11:00Unlisted Reason for Exam - Click Yes and Enter Reason Below->No [facility]I HUITRON : 1950 Sex: [...] MDReport Verified Date/Time: 01/06/2021 07:11:22 Reading Location: [address] Neuro Reading Room [facility] [id number] 07:11:00Unlisted Reason for Exam - Click Yes and Enter Reason Below->No [facility] HU[facility]RON : 1950 Sex: [...] MDReport Verified Date/Time: 01/06/2021 07:11:22 Reading Location: [facility] B1 C[address]V Neuro Reading Room CT, CAROTID, [id number] 07:11:00Unlisted Reason for Exam - Click Yes and Enter Reason Below->No [facility] : 1950 Sex: FFINAL [...] WESLEYeport Verified Date/Time: 01/06/2021 07:11:22 Reading Location: [facility] C013V Neuro Reading Room CALCIUM, [id number] 06:41:59 Test Item Value Reference Range Interpretation Comments CALCIUM IONIZED (BEAKER) (test 1.14 mmol/L 1.12-1.27 code = 698) PH, BLOOD (BEAKER) (test code = 7.43 1810) BASIC METABOLIC [id number] 05:42:30 Test Item Value Reference Range Interpretation [...] S NOT APPLICABLE FOR DIALYSIS PATIEN TS. Remote Control Mirror Installer ID - TRISH MLIPID [id number] 05:42:30 Test Item Value Reference Range Interpretation [...] Borderline 130-159 High 160-189 Very High >=190 Remote Control Mirror Installer ID - TRISH [id number] 05:42:29 Test Item Value Reference Range Interpretation Comments MAGNESIUM (BEAKER) 2.4 mg/dL 1.6-2.6 Specimen slightly (test code = 627) hemolyzed Remote Control Mirror Installer ID - TRISH [id number] 05:42:29 Test Item Value Reference Range Interpretation Comments PHOSPHORUS (BEAKER) 4.5 mg/dL 2.3-4.7 Specimen slightly (test code = 604) hemolyzed Remote Control Mirror Installer ID - TRISH MCBC W/PLT COUNT & AUTO [id number] 05:01:08 Test Item Value Reference Range Interpretation [...] 2801) RAD, SHOULDER, COMPLETE (MIN 2 VIEWS), [id number] 03:48:00Reason for exam:- >R shoulder fracture [facility] HU[facility]RON : 1950 Sex: [...] Specimen slightly (test code = 627) hemolyzed Remote Control Mirror Installer ID - TRISH [id number] 01:47:26 Test Item Value Reference Range Interpretation Comments POTASSIUM (BEAKER) 4.2 meq/L 3.5-5.1 Specimen slightly (test code = 379) hemolyzed Remote Control Mirror Installer ID - TRISH MPOCT-GLUCOSE [id number] 22:16:03 Test Item Value Reference Range Interpretation Comments POC-GLUCOSE METER 215 mg/dL 70-110 H : TESTED A T [facility] 6720 (BEAKER) (test code = [facility] [place], 1538) [address]: Remote Control Mirror Installer/Techni kenzie ID = [id number] for Andrei dash Inge TSH/FREE T4 IF [id number] 20:35:33 Test Item Value Reference Range Interpretation Comments THYROID STIMULATING HORMONE 1.104 uIU/mL 0.350-4.940 (BEAKER) (test code = 772) Remote Control Mirror Installer ID - ADMINVITAMIN B12 AND [id number] 20:35:33 Test Item Value Reference Range Interpretation Comments VITAMIN B12 756 pg/mL 213-816 (BEAKER) (test code = 774) FOLATE (BEAKER) 13.50 ng/mL See_Comment [Automated message] (test code = 362) The system which generated this result transmitted ref erence range: >=7.00. The reference range was not used to interpr et this result as normal/abnormal . Remote Control Mirror Installer ID - ADMINHEMOGLOBIN [id number] 20:20:55 Test Item Value Reference Range Interpretation Comments HEMOGLOBIN A1C (BEAKER) (test code = 9.0 % 4.3-6.1 H 368) HIGH SENSITIVITY TROPONIN [id number] 20:05:30 Test Item Value Reference Range Interpretation Comments HIGH SENSITIVITY < pg/ml See_Comment [Automated message] TROPONIN I (test code = The system which [id number]) generated this result transmitted ref erence range: <=17. Th e reference range was not used to interpr et this result as normal/abnormal . Remote Control Mirror Installer ID - ADMINThe TITLE ONE KINDERGARTEN TEACHER STAT High Sensitivity Troponin-I results should be used in conjunction with other diagnostic information such as ECG, clinical observations and information, and patientsymptoms to aid in the diagnosis of [place]. [id number] 20:01:52 Test Item Value Reference Range Interpretation Comments PHOSPHORUS (BEAKER) (test code = 7.2 mg/dL 2.3-4.7 H 604) Remote Control Mirror Installer ID - [id number] 20:01:51 Test Item Value Reference Range Interpretation Comments MAGNESIUM (BEAKER) (test code = 1.1 mg/dL 1.6-2.6 L 627) Remote Control Mirror Installer ID - ADMINBASIC METABOLIC [id number] 20:01:50 Test Item Value Reference Range Interpretation [...] S NOT APPLICABLE FOR DIALYSIS PATIEN TS. Remote Control Mirror Installer ID - ADMINCBC W/PLT COUNT & AUTO [id number] 19:37:16 Test Item Value Reference Range Interpretation [...]
[2021-01-16] MEDS: TRAZODONE 50 MG TABLET PO SCH (20:48)
[2021-01-16] MEDS: ATORVASTATIN 80 MG TAB PO SCH (20:48)
[2021-01-16] MEDS: MELATONIN 3 MG TABLET PO SCH (20:50)
[2021-01-17] MEDS: HYDROCODONE/APAP 10/325 TAB PO PRN (01:27)
[2021-01-17] MEDS: PANTOPRAZOLE 40MG TABLET PO SCH (07:03)
[2021-01-17] MEDS: INSULIN -REGULAR HUMAN 50 UNIT/0.5 ML ML SQ SCH ×4 (07:30→19:55)
[2021-01-17] MEDS: INSULIN LISPRO 100 UNIT/1 ML SQ SCH ×3 (07:53→16:33)
[2021-01-17] MEDS: INSULIN GLARGINE 100 UNITS/ML SQ SCH ×2 (07:54→19:55)
[2021-01-17] MEDS: ENSURE HIGH PROTEIN 237 ML CAN PO SCH ×2 (08:00→19:49)
[2021-01-17] MEDS: NYSTATIN PWDR 100000 UNIT/GM TOP SCH ×2 (08:42→19:49)
[2021-01-17] MEDS: CALCIUM CARB 500MG/VIT D 200 IU TAB PO SCH (08:42)
[2021-01-17] MEDS: NAPROXEN 250 MG TAB PO SCH ×2 (08:42→16:35)
[2021-01-17] MEDS: IRBESARTAN 150 MG TAB PO SCH (08:43)
[2021-01-17] MEDS: CRANBERRY FRUIT EXTRACT 400 MG CAP PO SCH ×2 (08:43→19:47)
[2021-01-17] MEDS: DOCUSATE NA/SENNA CONC 1 TAB PO SCH ×2 (08:44→19:49)
[2021-01-17] MEDS: POTASSIUM CL SA 10 MEQ TAB PO SCH (08:44)
[2021-01-17] MEDS: hydroCHLOROthiazide 25 MG TAB PO SCH (08:44)
[2021-01-17] MEDS: ENOXAPARIN 40 MG/0.4 ML SQ SCH (08:44)
[2021-01-17] MEDS: METFORMIN ER 500 MG TAB PO SCH ×2 (08:44→16:36)
[2021-01-17] MEDS: METOPROLOL TAR 50 MG TAB PO SCH ×2 (08:45→16:33)
[2021-01-17] MEDS: MAGNESIUM OXIDE 400 MG TAB PO SCH ×2 (08:45→19:49)
[2021-01-17] MEDS: GABAPENTIN 100 MG CAP PO SCH ×2 (08:45→19:48)
[2021-01-17] MEDS: HYDROCODONE/APAP 5/325 MG TAB PO PRN ×2 (08:45→19:48)
[2021-01-17] MEDS: NIFEDIPINE XL 90 MG TABLET PO SCH (08:46)
[2021-01-17] MEDS: CALCIUM CARBONATE CHEW 500MG TAB PO PRN (08:57)
[2021-01-17] MEDS: ONDANSETRON 4 MG (ODT) TAB PO PRN (08:57)
[2021-01-17] MEDS: ATORVASTATIN 80 MG TAB PO SCH (19:48)
[2021-01-17] MEDS: MELATONIN 3 MG TABLET PO SCH (19:48)
[2021-01-17] MEDS: TRAZODONE 50 MG TABLET PO SCH (19:48)
[2021-01-18 04:10] LABS: Absolute Lymphocytes (CBC) 2.3 K/uL (0.7-4.9); Basophils % 0.8 % (0-1.3); Hematocrit 34.5 % (36.0-45.0); MPV 7.5 fL (7.6-11.3); RBC Red Blood Cell Count 4.06 M/uL (3.86-4.86)
[2021-01-18 04:33] LABS: Albumin 2.8 g/dL (3.4-5.0); Magnesium 1.8 mg/dL (1.8-2.4); Potassium 4.3 mmol/L (3.5-5.1); Prealbumin 24.1 mg/dL (20-40)
[2021-01-18] MEDS: PANTOPRAZOLE 40MG TABLET PO SCH (06:35)
[2021-01-18] MEDS: INSULIN -REGULAR HUMAN 50 UNIT/0.5 ML ML SQ SCH ×4 (06:47→20:31)
[2021-01-18] MEDS: ONDANSETRON 4 MG (ODT) TAB PO PRN (07:04)
[2021-01-18] MEDS: ENOXAPARIN 40 MG/0.4 ML SQ SCH (07:04)
[2021-01-18] MEDS: CALCIUM CARBONATE CHEW 500MG TAB PO PRN (07:04)
[2021-01-18] MEDS: DOCUSATE NA/SENNA CONC 1 TAB PO SCH ×3 (08:00→20:00)
[2021-01-18] MEDS: ENSURE HIGH PROTEIN 237 ML CAN PO SCH ×3 (08:00→20:30)
[2021-01-18] MEDS: hydroCHLOROthiazide 25 MG TAB PO SCH (08:04)
[2021-01-18] MEDS: GABAPENTIN 100 MG CAP PO SCH ×2 (08:04→20:34)
[2021-01-18] MEDS: METFORMIN ER 500 MG TAB PO SCH ×2 (08:05→17:00)
[2021-01-18] MEDS: METOPROLOL TAR 50 MG TAB PO SCH ×2 (08:05→16:15)
[2021-01-18] MEDS: POTASSIUM CL SA 10 MEQ TAB PO SCH (08:06)
[2021-01-18] MEDS: INSULIN GLARGINE 100 UNITS/ML SQ SCH ×2 (08:06→20:35)
[2021-01-18] MEDS: INSULIN LISPRO 100 UNIT/1 ML SQ SCH ×3 (08:06→20:00)
[2021-01-18] MEDS: NYSTATIN PWDR 100000 UNIT/GM TOP SCH ×2 (08:07→20:33)
[2021-01-18] MEDS: MAGNESIUM OXIDE 400 MG TAB PO SCH ×2 (08:07→20:34)
[2021-01-18] MEDS: CRANBERRY FRUIT EXTRACT 400 MG CAP PO SCH ×2 (08:07→20:34)
[2021-01-18] MEDS: CALCIUM CARB 500MG/VIT D 200 IU TAB PO SCH (08:08)
[2021-01-18] MEDS: NIFEDIPINE XL 90 MG TABLET PO SCH (08:08)
[2021-01-18] MEDS: IRBESARTAN 150 MG TAB PO SCH (08:08)
[2021-01-18] MEDS: NAPROXEN 250 MG TAB PO SCH ×2 (08:09→16:14)
[2021-01-18] MEDS: ZINC OXIDE 40% 30 GM TUBE TOP PRN (13:06)
[2021-01-18] MEDS: HYDROCODONE/APAP 5/325 MG TAB PO PRN (14:01)
--- NOTE | 2021-01-18 17:56 | R.PN ---
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 SUBJECTIVE: Pt denied any depression. Pt denied any Shortness of Breath. WBC 8.3, Hgb 11.6, Plt 336, K 4.3, Glucose 85 to 231, prealbumin 24.1, UA: 1+ esterase, 3+ketones, C OVID-19 is negative. Ambulated 1000' without an assistive device, with supervision. Cognition exercises done with 88% to 98% accuracy. VITAL SIGNS Temperature: 97.7 F SBP/DBP: 126/53 Pulse: 80 Resp: 16 MEDICATION ALLERGIES: No Known Drug Allergies (NKDA) ENVIRONMENTAL ALLERGIES: None Known - Substance Allergies None Known - Other Allergies None Known NURSING: - Shower allowing shower - Bladder care per protocol - Skin care per protocol PRECAUTIONS: - Weight Bearing Precaution NWB RUE - Fall Precaution Bed alarm TABS alarm Wheel chair alarm ACTIVITIES OOB only with supervision THERAPIES: - Dietary and Nutrition Adequate Nutrition. Nutritional Education. Nutritional Supplements. - Occupational Therapy Cognitive Retraining. ADL Training. Adaptive Equipment. Community Reintegration. Eating. Evaluate and Treat. Household Tasks. Indep. ADL's- Higher Level Functioning. Patient/Family Education. Safety Aspen reness. Transfer Training. UE Strengthening. - Speech Therapy Cognitive Training. Expressive Language Skills. Memory Strategies. Receptive Language Skills. Speech Intelligibility Training. - Physical Therapy Balance Training. Evaluate and Treat. Gait Training. LE ROM. LE Strengthening. Medical Equipment Asse ssment and Evaluation. Mobility Training. Modalities Training. Patient/Family Education. Safety Aware ness. Transfer Training. PHYSICAL EXAM - Gen Alert and awake Lying in bed No apparent distress Oriented to: person, time, and place - Skin No skin breakdown. Normacephalic - Eyes No abnormalities - ENMT No abnormalities - Neck No abnormalities No cervical adenopathy - CVS RRR - Chest No abnormalities - Abd Soft - GI Non distended Deferred - No abnormalities - Ext Mild right upper extremity hyperemia and edema. - MSK Mild to moderate right upper and lower extremity weakness - Neuro Mild to moderate right upper and lower extremity weakness - Psych No abnormalities ASSESSMENT: On 01/05/2021 Pt. presented to [facility] with sudden onse t of right-side weakness.Pt. is a 70 yo white female.On 01/05/2021 she was admitted to [facility] with diagnosis L CVA, uncontrolled diabetes mellitus.Her impa irment category is Stroke 01 - Right Body (Left Brain) (01.2).Pre-morbidly, Pt. was independent/mod- I in Locomotion, Safety Awareness, Social Cognition, Balance, Transfers Control, Sphincter Control, S elf-Care, Communication, and Endurance; and she had good Locomotion, Safety Awareness, Balance, Socia l Cognition, Transfers Control, Sphincter Control, Self-Care, Communication, and Endurance.Currently, she has deficits of Locomotion, Safety Awareness, Social Cognition, Balance, Transfers Control, Self -Care, Communication, and Endurance.Pt. is now referred to [facility] for acut e in-patient rehabilitation in order to maximize patient's functional independence in activities of d aily living, strength, ROM, and mobility.- Rehab Goal Patient has realistic goal of being discharged at assistance level Sup-IND to reside at Home with Fa shelby/Relatives. MDM/PLAN: - Physical Therapy Weakness - to improve, our physical therapists will perform initial evaluation of pt's status upon a dmission and devise an individualized program for Aquatic Therapy, Neuromuscular Reeducation, and Str engthening Poor balance - to improve, our physical therapists will perform initial evaluation of pt's status up on admission and devise an individualized program for Balance Training Inability to transfer - to improve, our physical therapists will perform initial evaluation of pt's status upon admission and devise an individualized program for Bed mobility Need in caregiver upon discharge - to improve, our physical therapists will perform initial evaluati on of pt's status upon admission and devise an individualized program for Caregiver Training Poor endurance - to improve, our physical therapists will perform initial evaluation of pt's status upon admission and devise an individualized program for Endurance Training Gait dysfunction - to improve, our physical therapists will perform initial evaluation of pt's statu s upon admission and devise an individualized program for Gait Training, and Wheel Chair mobility Need for home safety evaluation - to improve, our physical therapists will perform initial evaluatio n of pt's status upon admission and devise an individualized program for Home Evaluation New precaution - to improve, our physical therapists will perform initial evaluation of pt's status upon admission and devise an individualized program for Patient precaution education Edema - to improve, our physical therapists will perform initial evaluation of pt's status upon admi ssion and devise an individualized program for Elevation Training, and Lymphedema Therapy - Occupational Therapy Weakness - to improve, our occupation therapists will perform initial evaluation of pt's status upon admission and devise an individualized program for Aquatic Therapy, Balance, Endurance, UE ROM, and UE strengthening ADL deficits - to improve, our occupation therapists will perform initial evaluation of pt's status upon admission and devise an individualized program for Bathing, Bed mobility, Community Reintegratio n, Cooking, Dressing, Eating, Fine Motor Skills, Grooming, Homemaking, Kitchen Mobility, Laundry, Pat ient Education, Safety Awareness, Splinting - Positioning, Transfers(Toilet, Tub, Shower), and Wheel Chair Management Need for care process manager - to improve, our occupation therapists will perform initial evaluation of pt's status upon admission and devise an individualized program for Caregiver Training Cognitive deficits - to improve, our occupation therapists will perform initial evaluation of pt's s tatus upon admission and devise an individualized program for Cognition - orientation - Other See attached MAR (Medication Administration Record) - Diet Type Continue Regular - Diet - Liquid Texture Continue Regular - Tube Feed Continue N/A - Bladder care per protocol - Weight Bearing Precaution NWB RUE WBAT right LE - Fall Precaution Bed alarm TABS alarm Wheel chair alarm - Skin care per protocol - Diet - Solid Texture Continue Regular - Shower allowing shower for Dementia, TBI, Stroke, or others - Balance for Weakness - Bed mobility for ADL deficits - Cognition - orientation for Dementia - Dressing Status: indep for ADL deficits - Eating for ADL deficits - Grooming Status: indep for ADL deficits - Toilet Transfer for ADL deficits Status: indep - Bed to Chair Transfer sbt Status: indep for ADL deficits - Tub Transfer for ADL deficits Status: indep - Hygiene for ADL deficits - Shower Transfer for ADL deficits Status: indep - Wheel Chair to Bed Transfer Status: indep for ADL deficits FUNCTIONAL STATUS: UPDATED AT WEEKLY TEAM CONFERENCE - Bladder Same accident frequency: 7-Ind - No accidents in the past 7 days - Bowel Same accident frequency: 7-Ind - No accidents in the past 7 days - Walking Same score based on distance walked: 0(N/A) Same score based on distance walked: 1(<=50ft) - Wheelchair Same score based on distance traveled: 0(N/A) FUNCTIONAL STATUS: - Self-Care A. Eating Ind B. Grooming Tamara C. Bathing Marilyn D. Dressing - Upper Marilyn E. Dressing - Lower modA F. Toileting sup - Sphincter Control G. Bladder control Marilyn H. Bowel control Marilyn - Transfers Control I. Bed/Chair/Wheelchair sup J. Toilet sup K. Tub/Shower sup - Locomotion L. Walk/Wheelchair (B) Marilyn M. Stairs modA - Communication N. Comprehension (B) sup O. Expression (B) sup - Social Cognition P. Social Interaction Tamara Q. Problem Solving Tamara R. Memory Tamara - Endurance Good - Balance Good - Safety Awareness Good QI SCORES: - Self-Care A. Eating 88-Not attempted due to medical condition or safety concerns B. Oral hygiene 03-Partial/moderate assistance C. Toileting hygiene 03-Partial/moderate assistance E. Shower/bathe self 88-Not attempted due to medical condition or safety concerns F. Upper body dressing 02-Substantial/maximal assistance G. Lower body dressing 02-Substantial/maximal assistance H. Putting on/taking off footwear 02-Substantial/maximal assistance - Mobility A. Roll left and right 03-Partial/moderate assistance B. Sit to lying 03-Partial/moderate assistance C. Lying to sitting on side of bed 03-Partial/moderate assistance D. Sit to stand 03-Partial/moderate assistance E. Chair/[id number] transfer 03-Partial/moderate assistance F. Toilet transfer 03-Partial/moderate assistance G. Car transfer 88-Not attempted due to medical condition or safety concerns I. Walk 10 feet 03-Partial/moderate assistance J. Walk 50 feet with two turns 88-Not attempted due to medical condition or safety concerns K. Walk 150 feet 88-Not attempted due to medical condition or safety concerns L. Walking 10 feet on uneven surfaces 88-Not attempted due to medical condition or safety concerns M. 1 step (curb) 88-Not attempted due to medical condition or safety concerns N. 4 steps 88-Not attempted due to medical condition or safety concerns O. 12 steps 88-Not attempted due to medical condition or safety concerns P. Picking up object 88-Not attempted due to medical condition or safety concerns R. Wheel 50 feet with two turns S. Wheel 150 feet - Bladder and Bowel Bladder continence Bowel continence - Endurance Fair - Balance Fair - Safety Awareness Fair [facility]RENT [facility]. 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
[2021-01-18] MEDS: ATORVASTATIN 80 MG TAB PO SCH (20:34)
[2021-01-18] MEDS: TRAZODONE 50 MG TABLET PO SCH (20:34)
[2021-01-18] MEDS: MELATONIN 3 MG TABLET PO SCH (20:34)
[2021-01-18] MEDS: HYDROCODONE/APAP 10/325 TAB PO PRN (22:21)
[2021-01-19] MEDS: PANTOPRAZOLE 40MG TABLET PO SCH (04:34)
[2021-01-19] MEDS: ONDANSETRON 4 MG (ODT) TAB PO PRN (06:37)
[2021-01-19] MEDS: CALCIUM CARBONATE CHEW 500MG TAB PO PRN ×2 (06:37→16:52)
[2021-01-19] MEDS: ENOXAPARIN 40 MG/0.4 ML SQ SCH (07:29)
[2021-01-19] MEDS: INSULIN -REGULAR HUMAN 50 UNIT/0.5 ML ML SQ SCH ×4 (07:30→20:09)
[2021-01-19] MEDS: NYSTATIN PWDR 100000 UNIT/GM TOP SCH ×2 (08:00→20:16)
[2021-01-19] MEDS: ENSURE HIGH PROTEIN 237 ML CAN PO SCH ×2 (08:00→20:00)
[2021-01-19] MEDS: ZINC OXIDE 40% 30 GM TUBE TOP PRN (08:38)
[2021-01-19] MEDS: CALCIUM CARB 500MG/VIT D 200 IU TAB PO SCH (08:39)
[2021-01-19] MEDS: HYDROCODONE/APAP 5/325 MG TAB PO PRN (08:39)
[2021-01-19] MEDS: MAGNESIUM OXIDE 400 MG TAB PO SCH ×2 (08:39→20:14)
[2021-01-19] MEDS: DOCUSATE NA/SENNA CONC 1 TAB PO SCH ×2 (08:39→20:13)
[2021-01-19] MEDS: IRBESARTAN 150 MG TAB PO SCH (08:39)
[2021-01-19] MEDS: GABAPENTIN 100 MG CAP PO SCH ×2 (08:39→20:13)
[2021-01-19] MEDS: POTASSIUM CL SA 10 MEQ TAB PO SCH (08:39)
[2021-01-19] MEDS: hydroCHLOROthiazide 25 MG TAB PO SCH (08:40)
[2021-01-19] MEDS: NAPROXEN 250 MG TAB PO SCH ×2 (08:40→16:34)
[2021-01-19] MEDS: CRANBERRY FRUIT EXTRACT 400 MG CAP PO SCH ×2 (08:41→20:13)
[2021-01-19] MEDS: NIFEDIPINE XL 90 MG TABLET PO SCH (08:42)
[2021-01-19] MEDS: METOPROLOL TAR 50 MG TAB PO SCH ×2 (08:42→16:35)
[2021-01-19] MEDS: METFORMIN ER 500 MG TAB PO SCH ×2 (08:43→16:34)
[2021-01-19] MEDS: INSULIN GLARGINE 100 UNITS/ML SQ SCH ×2 (08:43→20:14)
[2021-01-19] MEDS: INSULIN LISPRO 100 UNIT/1 ML SQ SCH ×2 (08:43→20:15)
--- NOTE | 2021-01-19 17:58 | R.PN ---
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 SUBJECTIVE: Pt denied any depression. Pt denied any Shortness of Breath. WBC 8.3, Hgb 11.6, Plt 336, K 4.3, Glucose 150 to 297, prealbumin 24.1, UA: 1+ esterase, 3+ketones, COVID-19 is negative. Ambulated 2250' without an assistive device, with modified independence. Up and down 15 steps with s upervision. Cognition exercises done with 88% to 98% accuracy. VITAL SIGNS Temperature: 97.8 F SBP/DBP: 120/62 Pulse: 76 Resp: 16 MEDICATION ALLERGIES: No Known Drug Allergies (NKDA) ENVIRONMENTAL ALLERGIES: None Known - Substance Allergies None Known - Other Allergies None Known NURSING: - Shower allowing shower - Bladder care per protocol - Skin care per protocol PRECAUTIONS: - Weight Bearing Precaution NWB RUE - Fall Precaution Bed alarm TABS alarm Wheel chair alarm ACTIVITIES OOB only with supervision THERAPIES: - Dietary and Nutrition Adequate Nutrition. Nutritional Education. Nutritional Supplements. - Occupational Therapy Cognitive Retraining. ADL Training. Adaptive Equipment. Community Reintegration. Eating. Evaluate and Treat. Household Tasks. Indep. ADL's- Higher Level Functioning. Patient/Family Education. Safety Aspen reness. Transfer Training. UE Strengthening. - Speech Therapy Cognitive Training. Expressive Language Skills. Memory Strategies. Receptive Language Skills. Speech Intelligibility Training. - Physical Therapy Balance Training. Evaluate and Treat. Gait Training. LE ROM. LE Strengthening. Medical Equipment Asse ssment and Evaluation. Mobility Training. Modalities Training. Patient/Family Education. Safety Aware ness. Transfer Training. PHYSICAL EXAM - Gen Alert and awake Lying in bed No apparent distress Oriented to: person, time, and place - Skin No skin breakdown. Normacephalic - Eyes No abnormalities - ENMT No abnormalities - Neck No abnormalities No cervical adenopathy - CVS RRR - Chest No abnormalities - Abd Soft - GI Non distended Deferred - No abnormalities - Ext Mild right upper extremity hyperemia and edema. - MSK Mild to moderate right upper and lower extremity weakness - Neuro Mild to moderate right upper and lower extremity weakness - Psych No abnormalities ASSESSMENT: On 01/05/2021 Pt. presented to [facility] with sudden onse t of right-side weakness.Pt. is a 70 yo white female.On 01/05/2021 she was admitted to [facility] with diagnosis L CVA, uncontrolled diabetes mellitus.Her impa irment category is Stroke 01 - Right Body (Left Brain) (01.2).Pre-morbidly, Pt. was independent/mod- I in Locomotion, Safety Awareness, Social Cognition, Balance, Transfers Control, Sphincter Control, S elf-Care, Communication, and Endurance; and she had good Locomotion, Safety Awareness, Balance, Socia l Cognition, Transfers Control, Sphincter Control, Self-Care, Communication, and Endurance.Currently, she has deficits of Locomotion, Safety Awareness, Social Cognition, Balance, Transfers Control, Self -Care, Communication, and Endurance.Pt. is now referred to [facility] for acut e in-patient rehabilitation in order to maximize patient's functional independence in activities of d aily living, strength, ROM, and mobility.- Rehab Goal Patient has realistic goal of being discharged at assistance level Sup-IND to reside at Home with Fa shelby/Relatives. MDM/PLAN: - Physical Therapy Weakness - to improve, our physical therapists will perform initial evaluation of pt's status upon a dmission and devise an individualized program for Aquatic Therapy, Neuromuscular Reeducation, and Str engthening Poor balance - to improve, our physical therapists will perform initial evaluation of pt's status up on admission and devise an individualized program for Balance Training Inability to transfer - to improve, our physical therapists will perform initial evaluation of pt's status upon admission and devise an individualized program for Bed mobility Need in caregiver upon discharge - to improve, our physical therapists will perform initial evaluati on of pt's status upon admission and devise an individualized program for Caregiver Training Poor endurance - to improve, our physical therapists will perform initial evaluation of pt's status upon admission and devise an individualized program for Endurance Training Gait dysfunction - to improve, our physical therapists will perform initial evaluation of pt's statu s upon admission and devise an individualized program for Gait Training, and Wheel Chair mobility Need for home safety evaluation - to improve, our physical therapists will perform initial evaluatio n of pt's status upon admission and devise an individualized program for Home Evaluation New precaution - to improve, our physical therapists will perform initial evaluation of pt's status upon admission and devise an individualized program for Patient precaution education Edema - to improve, our physical therapists will perform initial evaluation of pt's status upon admi ssion and devise an individualized program for Elevation Training, and Lymphedema Therapy - Occupational Therapy Weakness - to improve, our occupation therapists will perform initial evaluation of pt's status upon admission and devise an individualized program for Aquatic Therapy, Balance, Endurance, UE ROM, and UE strengthening ADL deficits - to improve, our occupation therapists will perform initial evaluation of pt's status upon admission and devise an individualized program for Bathing, Bed mobility, Community Reintegratio n, Cooking, Dressing, Eating, Fine Motor Skills, Grooming, Homemaking, Kitchen Mobility, Laundry, Pat ient Education, Safety Awareness, Splinting - Positioning, Transfers(Toilet, Tub, Shower), and Wheel Chair Management Need for medicare insurance specialist - to improve, our occupation therapists will perform initial evaluation of pt's status upon admission and devise an individualized program for Caregiver Training Cognitive deficits - to improve, our occupation therapists will perform initial evaluation of pt's s tatus upon admission and devise an individualized program for Cognition - orientation - Other See attached MAR (Medication Administration Record) - Diet Type Continue Regular - Diet - Liquid Texture Continue Regular - Tube Feed Continue N/A - Bladder care per protocol - Weight Bearing Precaution NWB RUE WBAT right LE - Fall Precaution Bed alarm TABS alarm Wheel chair alarm - Skin care per protocol - Diet - Solid Texture Continue Regular - Shower allowing shower for Dementia, TBI, Stroke, or others - Balance for Weakness - Bed mobility for ADL deficits - Cognition - orientation for Dementia - Dressing Status: indep for ADL deficits - Eating for ADL deficits - Grooming Status: indep for ADL deficits - Toilet Transfer for ADL deficits Status: indep - Bed to Chair Transfer sbt Status: indep for ADL deficits - Tub Transfer for ADL deficits Status: indep - Hygiene for ADL deficits - Shower Transfer for ADL deficits Status: indep - Wheel Chair to Bed Transfer Status: indep for ADL deficits FUNCTIONAL STATUS: UPDATED AT WEEKLY TEAM CONFERENCE - Bladder Same accident frequency: 7-Ind - No accidents in the past 7 days - Bowel Same accident frequency: 7-Ind - No accidents in the past 7 days - Walking Same score based on distance walked: 0(N/A) Same score based on distance walked: 1(<=50ft) - Wheelchair Same score based on distance traveled: 0(N/A) FUNCTIONAL STATUS: - Self-Care A. Eating Ind B. Grooming Tamara C. Bathing Marilyn D. Dressing - Upper Marilyn E. Dressing - Lower modA F. Toileting sup - Sphincter Control G. Bladder control Marilyn H. Bowel control Marilyn - Transfers Control I. Bed/Chair/Wheelchair sup J. Toilet sup K. Tub/Shower sup - Locomotion L. Walk/Wheelchair (B) Marilyn M. Stairs modA - Communication N. Comprehension (B) sup O. Expression (B) sup - Social Cognition P. Social Interaction Tamara Q. Problem Solving Tamara R. Memory Tamara - Endurance Good - Balance Good - Safety Awareness Good QI SCORES: - Self-Care A. Eating 88-Not attempted due to medical condition or safety concerns B. Oral hygiene 03-Partial/moderate assistance C. Toileting hygiene 03-Partial/moderate assistance E. Shower/bathe self 88-Not attempted due to medical condition or safety concerns F. Upper body dressing 02-Substantial/maximal assistance G. Lower body dressing 02-Substantial/maximal assistance H. Putting on/taking off footwear 02-Substantial/maximal assistance - Mobility A. Roll left and right 03-Partial/moderate assistance B. Sit to lying 03-Partial/moderate assistance C. Lying to sitting on side of bed 03-Partial/moderate assistance D. Sit to stand 03-Partial/moderate assistance E. Chair/[id number] transfer 03-Partial/moderate assistance F. Toilet transfer 03-Partial/moderate assistance G. Car transfer 88-Not attempted due to medical condition or safety concerns I. Walk 10 feet 03-Partial/moderate assistance J. Walk 50 feet with two turns 88-Not attempted due to medical condition or safety concerns K. Walk 150 feet 88-Not attempted due to medical condition or safety concerns L. Walking 10 feet on uneven surfaces 88-Not attempted due to medical condition or safety concerns M. 1 step (curb) 88-Not attempted due to medical condition or safety concerns N. 4 steps 88-Not attempted due to medical condition or safety concerns O. 12 steps 88-Not attempted due to medical condition or safety concerns P. Picking up object 88-Not attempted due to medical condition or safety concerns R. Wheel 50 feet with two turns S. Wheel 150 feet - Bladder and Bowel Bladder continence Bowel continence - Endurance Fair - Balance Fair - Safety Awareness Fair CURRENT [facility]. 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
[2021-01-19] MEDS: ATORVASTATIN 80 MG TAB PO SCH (20:13)
[2021-01-19] MEDS: MELATONIN 3 MG TABLET PO SCH (20:14)
[2021-01-19] MEDS: TRAZODONE 50 MG TABLET PO SCH (20:14)
[2021-01-20] MEDS: ONDANSETRON 4 MG (ODT) TAB PO PRN (03:49)
[2021-01-20] MEDS: ENOXAPARIN 40 MG/0.4 ML SQ SCH (06:49)
[2021-01-20] MEDS: PANTOPRAZOLE 40MG TABLET PO SCH (06:49)
[2021-01-20] MEDS: NYSTATIN PWDR 100000 UNIT/GM TOP SCH ×2 (07:25→19:16)
[2021-01-20] MEDS: ZINC OXIDE 40% 30 GM TUBE TOP PRN (07:26)
[2021-01-20] MEDS: INSULIN -REGULAR HUMAN 50 UNIT/0.5 ML ML SQ SCH ×4 (07:30→19:53)
[2021-01-20] MEDS: ENSURE HIGH PROTEIN 237 ML CAN PO SCH ×2 (08:00→19:17)
[2021-01-20] MEDS: POTASSIUM CL SA 10 MEQ TAB PO SCH (08:05)
[2021-01-20] MEDS: IRBESARTAN 150 MG TAB PO SCH (08:05)
[2021-01-20] MEDS: MAGNESIUM OXIDE 400 MG TAB PO SCH ×2 (08:06→19:16)
[2021-01-20] MEDS: NAPROXEN 250 MG TAB PO SCH ×2 (08:06→17:10)
[2021-01-20] MEDS: hydroCHLOROthiazide 25 MG TAB PO SCH (08:06)
[2021-01-20] MEDS: CRANBERRY FRUIT EXTRACT 400 MG CAP PO SCH ×2 (08:06→19:16)
[2021-01-20] MEDS: METFORMIN ER 500 MG TAB PO SCH ×2 (08:07→17:10)
[2021-01-20] MEDS: METOPROLOL TAR 50 MG TAB PO SCH ×2 (08:07→16:38)
[2021-01-20] MEDS: CALCIUM CARB 500MG/VIT D 200 IU TAB PO SCH (08:07)
[2021-01-20] MEDS: GABAPENTIN 100 MG CAP PO SCH ×2 (08:07→19:17)
[2021-01-20] MEDS: NIFEDIPINE XL 90 MG TABLET PO SCH (08:07)
[2021-01-20] MEDS: DOCUSATE NA/SENNA CONC 1 TAB PO SCH ×2 (08:07→19:15)
[2021-01-20] MEDS: INSULIN GLARGINE 100 UNITS/ML SQ SCH ×2 (08:09→19:53)
[2021-01-20] MEDS: INSULIN LISPRO 100 UNIT/1 ML SQ SCH ×2 (08:10→19:52)
[2021-01-20] MEDS: FORMULATION-R RECTAL 57GM PR PRN (11:39)
--- NOTE | 2021-01-20 17:38 | R.PN ---
PROGRESS NOTES ENCOUNTER DATE AND TIME: 01/20/2021 17:33 ([employer]) NAME BAKARI HUITRON DATE OF : 1950 DATE OF ADMISSION: 01/12/2021 13:20 ([employer]) L CVA, uncontrolled diabetes mellitusCHIEF COMPLAINT: Stroke with right sided residual weakness. SUBJECTIVE: Pt denied any depression. Pt denied any Shortness of Breath. WBC 8.3, Hgb 11.6, Plt 336, K 4.3, Glucose 104 to 237, prealbumin 24.1, UA: 1+ esterase, 3+ketones, COVID-19 is negative. Ambulated 1750' without an assistive device, with modified independence. Up and down 20 steps with i ndependence. Cognition exercises done with 88% to 98% accuracy. VITAL SIGNS Temperature: 97.2 F SBP/DBP: 145/53 Pulse: 84 Resp: 16 MEDICATION ALLERGIES: No Known Drug Allergies (NKDA) ENVIRONMENTAL ALLERGIES: None Known - Substance Allergies None Known - Other Allergies None Known NURSING: - Shower allowing shower - Bladder care per protocol - Skin care per protocol PRECAUTIONS: - Weight Bearing Precaution NWB RUE - Fall Precaution Bed alarm TABS alarm Wheel chair alarm ACTIVITIES OOB only with supervision THERAPIES: - Dietary and Nutrition Adequate Nutrition. Nutritional Education. Nutritional Supplements. - Occupational Therapy Cognitive Retraining. ADL Training. Adaptive Equipment. Community Reintegration. Eating. Evaluate and Treat. Household Tasks. Indep. ADL's- Higher Level Functioning. Patient/Family Education. Safety Aspen reness. Transfer Training. UE Strengthening. - Speech Therapy Cognitive Training. Expressive Language Skills. Memory Strategies. Receptive Language Skills. Speech Intelligibility Training. - Physical Therapy Balance Training. Evaluate and Treat. Gait Training. LE ROM. LE Strengthening. Medical Equipment Asse ssment and Evaluation. Mobility Training. Modalities Training. Patient/Family Education. Safety Aware ness. Transfer Training. PHYSICAL EXAM - Gen Alert and awake Lying in bed No apparent distress Oriented to: person, time, and place - Skin No skin breakdown. Normacephalic - Eyes No abnormalities - ENMT No abnormalities - Neck No abnormalities No cervical adenopathy - CVS RRR - Chest No abnormalities - Abd Soft - GI Non distended Deferred - No abnormalities - Ext Mild right upper extremity hyperemia and edema. - MSK Mild to moderate right upper and lower extremity weakness - Neuro Mild to moderate right upper and lower extremity weakness - Psych No abnormalities ASSESSMENT: On 01/05/2021 Pt. presented to [facility] with sudden onse t of right-side weakness.Pt. is a 70 yo white female.On 01/05/2021 she was admitted to [facility] with diagnosis L CVA, uncontrolled diabetes mellitus.Her impa irment category is Stroke 01 - Right Body (Left Brain) (01.2).Pre-morbidly, Pt. was independent/mod- I in Locomotion, Safety Awareness, Social Cognition, Balance, Transfers Control, Sphincter Control, S elf-Care, Communication, and Endurance; and she had good Locomotion, Safety Awareness, Balance, Socia l Cognition, Transfers Control, Sphincter Control, Self-Care, Communication, and Endurance.Currently, she has deficits of Locomotion, Safety Awareness, Social Cognition, Balance, Transfers Control, Self -Care, Communication, and Endurance.Pt. is now referred to [facility] for acut e in-patient rehabilitation in order to maximize patient's functional independence in activities of d aily living, strength, ROM, and mobility.- Rehab Goal Patient has realistic goal of being discharged at assistance level Sup-IND to reside at Home with Fa shelby/Relatives. MDM/PLAN: - Physical Therapy Weakness - to improve, our physical therapists will perform initial evaluation of pt's status upon a dmission and devise an individualized program for Aquatic Therapy, Neuromuscular Reeducation, and Str engthening Poor balance - to improve, our physical therapists will perform initial evaluation of pt's status up on admission and devise an individualized program for Balance Training Inability to transfer - to improve, our physical therapists will perform initial evaluation of pt's status upon admission and devise an individualized program for Bed mobility Need in caregiver upon discharge - to improve, our physical therapists will perform initial evaluati on of pt's status upon admission and devise an individualized program for Caregiver Training Poor endurance - to improve, our physical therapists will perform initial evaluation of pt's status upon admission and devise an individualized program for Endurance Training Gait dysfunction - to improve, our physical therapists will perform initial evaluation of pt's statu s upon admission and devise an individualized program for Gait Training, and Wheel Chair mobility Need for home safety evaluation - to improve, our physical therapists will perform initial evaluatio n of pt's status upon admission and devise an individualized program for Home Evaluation New precaution - to improve, our physical therapists will perform initial evaluation of pt's status upon admission and devise an individualized program for Patient precaution education Edema - to improve, our physical therapists will perform initial evaluation of pt's status upon admi ssion and devise an individualized program for Elevation Training, and Lymphedema Therapy - Occupational Therapy Weakness - to improve, our occupation therapists will perform initial evaluation of pt's status upon admission and devise an individualized program for Aquatic Therapy, Balance, Endurance, UE ROM, and UE strengthening ADL deficits - to improve, our occupation therapists will perform initial evaluation of pt's status upon admission and devise an individualized program for Bathing, Bed mobility, Community Reintegratio n, Cooking, Dressing, Eating, Fine Motor Skills, Grooming, Homemaking, Kitchen Mobility, Laundry, Pat ient Education, Safety Awareness, Splinting - Positioning, Transfers(Toilet, Tub, Shower), and Wheel Chair Management Need for health care administrator - to improve, our occupation therapists will perform initial evaluation of pt's status upon admission and devise an individualized program for Caregiver Training Cognitive deficits - to improve, our occupation therapists will perform initial evaluation of pt's s tatus upon admission and devise an individualized program for Cognition - orientation - Other See attached MAR (Medication Administration Record) - Diet Type Continue Regular - Diet - Liquid Texture Continue Regular - Tube Feed Continue N/A - Bladder care per protocol - Weight Bearing Precaution NWB RUE WBAT right LE - Fall Precaution Bed alarm TABS alarm Wheel chair alarm - Skin care per protocol - Diet - Solid Texture Continue Regular - Shower allowing shower for Dementia, TBI, Stroke, or others - Balance for Weakness - Bed mobility for ADL deficits - Cognition - orientation for Dementia - Dressing Status: indep for ADL deficits - Eating for ADL deficits - Grooming Status: indep for ADL deficits - Toilet Transfer for ADL deficits Status: indep - Bed to Chair Transfer sbt Status: indep for ADL deficits - Tub Transfer for ADL deficits Status: indep - Hygiene for ADL deficits - Shower Transfer for ADL deficits Status: indep - Wheel Chair to Bed Transfer Status: indep for ADL deficits FUNCTIONAL STATUS: UPDATED AT WEEKLY TEAM CONFERENCE - Bladder Same accident frequency: 7-Ind - No accidents in the past 7 days - Bowel Same accident frequency: 7-Ind - No accidents in the past 7 days - Walking Same score based on distance walked: 0(N/A) Same score based on distance walked: 1(<=50ft) - Wheelchair Same score based on distance traveled: 0(N/A) FUNCTIONAL STATUS: - Self-Care A. Eating Ind B. Grooming Tamara C. Bathing Marilyn D. Dressing - Upper Marilyn E. Dressing - Lower modA F. Toileting sup - Sphincter Control G. Bladder control Marilyn H. Bowel control Marilyn - Transfers Control I. Bed/Chair/Wheelchair sup J. Toilet sup K. Tub/Shower sup - Locomotion L. Walk/Wheelchair (B) Marilyn M. Stairs modA - Communication N. Comprehension (B) sup O. Expression (B) sup - Social Cognition P. Social Interaction Tamara Q. Problem Solving Tamara R. Memory Tamara - Endurance Good - Balance Good - Safety Awareness Good QI SCORES: - Self-Care A. Eating 88-Not attempted due to medical condition or safety concerns B. Oral hygiene 03-Partial/moderate assistance C. Toileting hygiene 03-Partial/moderate assistance E. Shower/bathe self 88-Not attempted due to medical condition or safety concerns F. Upper body dressing 02-Substantial/maximal assistance G. Lower body dressing 02-Substantial/maximal assistance H. Putting on/taking off footwear 02-Substantial/maximal assistance - Mobility A. Roll left and right 03-Partial/moderate assistance B. Sit to lying 03-Partial/moderate assistance C. Lying to sitting on side of bed 03-Partial/moderate assistance D. Sit to stand 03-Partial/moderate assistance E. Chair/[id number] transfer 03-Partial/moderate assistance F. Toilet transfer 03-Partial/moderate assistance G. Car transfer 88-Not attempted due to medical condition or safety concerns I. Walk 10 feet 03-Partial/moderate assistance J. Walk 50 feet with two turns 88-Not attempted due to medical condition or safety concerns K. Walk 150 feet 88-Not attempted due to medical condition or safety concerns L. Walking 10 feet on uneven surfaces 88-Not attempted due to medical condition or safety concerns M. 1 step (curb) 88-Not attempted due to medical condition or safety concerns N. 4 steps 88-Not attempted due to medical condition or safety concerns O. 12 steps 88-Not attempted due to medical condition or safety concerns P. Picking up object 88-Not attempted due to medical condition or safety concerns R. Wheel 50 feet with two turns S. Wheel 150 feet - Bladder and Bowel Bladder continence Bowel continence - Endurance Fair - Balance Fair - Safety Awareness Fair CURRENT [facility]. DEFICITS: Mobility, Endurance, Balance, Safety Awareness, and Self-Care SIGNATURE PANEL: ([employer])
[2021-01-20] MEDS: MELATONIN 3 MG TABLET PO SCH (19:15)
[2021-01-20] MEDS: ATORVASTATIN 80 MG TAB PO SCH (19:16)
[2021-01-20] MEDS: TRAZODONE 50 MG TABLET PO SCH (19:17)
[2021-01-20] MEDS: HYDROCODONE/APAP 10/325 TAB PO PRN (21:42)
[2021-01-21 06:07] LABS: Absolute Lymphocytes (CBC) 2.2 K/uL (0.7-4.9); Basophils % 1.2 % (0-1.3); Hematocrit 32.3 % (36.0-45.0); Lymphocytes % 33.5 % (15.3-44.8); MPV 7.5 fL (7.6-11.3); RBC Red Blood Cell Count 3.82 M/uL (3.86-4.86)
[2021-01-21 06:22] LABS: Albumin 2.8 g/dL (3.4-5.0); Magnesium 1.9 mg/dL (1.8-2.4); Potassium 4.2 mmol/L (3.5-5.1); Prealbumin 28.5 mg/dL (20-40)
[2021-01-21] MEDS: PANTOPRAZOLE 40MG TABLET PO SCH (07:30)
[2021-01-21] MEDS: INSULIN -REGULAR HUMAN 50 UNIT/0.5 ML ML SQ SCH ×4 (07:30→19:14)
[2021-01-21] MEDS: INSULIN GLARGINE 100 UNITS/ML SQ SCH ×2 (07:40→19:14)
[2021-01-21] MEDS: INSULIN LISPRO 100 UNIT/1 ML SQ SCH ×2 (07:41→19:14)
[2021-01-21] MEDS: NIFEDIPINE XL 90 MG TABLET PO SCH (07:49)
[2021-01-21] MEDS: NYSTATIN PWDR 100000 UNIT/GM TOP SCH ×2 (07:50→19:14)
[2021-01-21] MEDS: ZINC OXIDE 40% 30 GM TUBE TOP PRN (07:50)
[2021-01-21] MEDS: POTASSIUM CL SA 10 MEQ TAB PO SCH (07:51)
[2021-01-21] MEDS: METFORMIN ER 500 MG TAB PO SCH ×2 (07:51→16:09)
[2021-01-21] MEDS: GABAPENTIN 100 MG CAP PO SCH ×2 (07:51→19:13)
[2021-01-21] MEDS: MAGNESIUM OXIDE 400 MG TAB PO SCH ×2 (07:51→19:13)
[2021-01-21] MEDS: DOCUSATE NA/SENNA CONC 1 TAB PO SCH ×2 (07:51→19:12)
[2021-01-21] MEDS: IRBESARTAN 150 MG TAB PO SCH (07:51)
[2021-01-21] MEDS: ENOXAPARIN 40 MG/0.4 ML SQ SCH (07:51)
[2021-01-21] MEDS: NAPROXEN 250 MG TAB PO SCH ×2 (07:52→16:11)
[2021-01-21] MEDS: CALCIUM CARB 500MG/VIT D 200 IU TAB PO SCH (07:52)
[2021-01-21] MEDS: hydroCHLOROthiazide 25 MG TAB PO SCH (07:53)
[2021-01-21] MEDS: METOPROLOL TAR 50 MG TAB PO SCH ×2 (07:53→16:10)
[2021-01-21] MEDS: CRANBERRY FRUIT EXTRACT 400 MG CAP PO SCH ×2 (07:53→19:13)
[2021-01-21] MEDS: ENSURE HIGH PROTEIN 237 ML CAN PO SCH ×2 (07:53→19:14)
[2021-01-21] MEDS: HYDROCODONE/APAP 5/325 MG TAB PO PRN (12:00)
--- NOTE | 2021-01-21 17:53 | R.PN ---
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 SUBJECTIVE: Pt denied any depression. Pt denied any Shortness of Breath. WBC 6.5 Hgb 11.0, Plt 336, K 4.2, Glucose 130 to 189, prealbumin 28.5, UA: 1+ esterase, 3+ketones, COVID-19 is negative. Ambulated 1500' without an assistive device and independence. Up and down 15 steps with independence . Cognition exercises done with 83% to 100% accuracy. VITAL SIGNS Temperature: 97.6 F SBP/DBP: 138/53 Pulse: 72 Resp: 16 MEDICATION ALLERGIES: No Known Drug Allergies (NKDA) ENVIRONMENTAL ALLERGIES: None Known - Substance Allergies None Known - Other Allergies None Known NURSING: - Shower allowing shower - Bladder care per protocol - Skin care per protocol PRECAUTIONS: - Weight Bearing Precaution NWB RUE - Fall Precaution Bed alarm TABS alarm Wheel chair alarm ACTIVITIES OOB only with supervision THERAPIES: - Dietary and Nutrition Adequate Nutrition. Nutritional Education. Nutritional Supplements. - Occupational Therapy Cognitive Retraining. ADL Training. Adaptive Equipment. Community Reintegration. Eating. Evaluate and Treat. Household Tasks. Indep. ADL's- Higher Level Functioning. Patient/Family Education. Safety Aspen reness. Transfer Training. UE Strengthening. - Speech Therapy Cognitive Training. Expressive Language Skills. Memory Strategies. Receptive Language Skills. Speech Intelligibility Training. - Physical Therapy Balance Training. Evaluate and Treat. Gait Training. LE ROM. LE Strengthening. Medical Equipment Asse ssment and Evaluation. Mobility Training. Modalities Training. Patient/Family Education. Safety Aware ness. Transfer Training. PHYSICAL EXAM - Gen Alert and awake Lying in bed No apparent distress Oriented to: person, time, and place - Skin No skin breakdown. Normacephalic - Eyes No abnormalities - ENMT No abnormalities - Neck No abnormalities No cervical adenopathy - CVS RRR - Chest No abnormalities - Abd Soft - GI Non distended Deferred - No abnormalities - Ext Mild right upper extremity hyperemia and edema. - MSK Mild to moderate right upper and lower extremity weakness - Neuro Mild to moderate right upper and lower extremity weakness - Psych No abnormalities ASSESSMENT: On 01/05/2021 Pt. presented to [facility] with sudden onse t of right-side weakness.Pt. is a 70 yo white female.On 01/05/2021 she was admitted to [facility] with diagnosis L CVA, uncontrolled diabetes mellitus.Her impa irment category is Stroke 01 - Right Body (Left Brain) (01.2).Pre-morbidly, Pt. was independent/mod- I in Locomotion, Safety Awareness, Social Cognition, Balance, Transfers Control, Sphincter Control, S elf-Care, Communication, and Endurance; and she had good Locomotion, Safety Awareness, Balance, Socia l Cognition, Transfers Control, Sphincter Control, Self-Care, Communication, and Endurance.Currently, she has deficits of Locomotion, Safety Awareness, Social Cognition, Balance, Transfers Control, Self -Care, Communication, and Endurance.Pt. is now referred to [facility] for acut e in-patient rehabilitation in order to maximize patient's functional independence in activities of d aily living, strength, ROM, and mobility.- Rehab Goal Patient has realistic goal of being discharged at assistance level Sup-IND to reside at Home with Fa shelby/Relatives. MDM/PLAN: - Physical Therapy Weakness - to improve, our physical therapists will perform initial evaluation of pt's status upon a dmission and devise an individualized program for Aquatic Therapy, Neuromuscular Reeducation, and Str engthening Poor balance - to improve, our physical therapists will perform initial evaluation of pt's status up on admission and devise an individualized program for Balance Training Inability to transfer - to improve, our physical therapists will perform initial evaluation of pt's status upon admission and devise an individualized program for Bed mobility Need in caregiver upon discharge - to improve, our physical therapists will perform initial evaluati on of pt's status upon admission and devise an individualized program for Caregiver Training Poor endurance - to improve, our physical therapists will perform initial evaluation of pt's status upon admission and devise an individualized program for Endurance Training Gait dysfunction - to improve, our physical therapists will perform initial evaluation of pt's statu s upon admission and devise an individualized program for Gait Training, and Wheel Chair mobility Need for home safety evaluation - to improve, our physical therapists will perform initial evaluatio n of pt's status upon admission and devise an individualized program for Home Evaluation New precaution - to improve, our physical therapists will perform initial evaluation of pt's status upon admission and devise an individualized program for Patient precaution education Edema - to improve, our physical therapists will perform initial evaluation of pt's status upon admi ssion and devise an individualized program for Elevation Training, and Lymphedema Therapy - Occupational Therapy Weakness - to improve, our occupation therapists will perform initial evaluation of pt's status upon admission and devise an individualized program for Aquatic Therapy, Balance, Endurance, UE ROM, and UE strengthening ADL deficits - to improve, our occupation therapists will perform initial evaluation of pt's status upon admission and devise an individualized program for Bathing, Bed mobility, Community Reintegratio n, Cooking, Dressing, Eating, Fine Motor Skills, Grooming, Homemaking, Kitchen Mobility, Laundry, Pat ient Education, Safety Awareness, Splinting - Positioning, Transfers(Toilet, Tub, Shower), and Wheel Chair Management Need for student career development specialist - to improve, our occupation therapists will perform initial evaluation of pt's status upon admission and devise an individualized program for Caregiver Training Cognitive deficits - to improve, our occupation therapists will perform initial evaluation of pt's s tatus upon admission and devise an individualized program for Cognition - orientation - Other See attached MAR (Medication Administration Record) - Diet Type Continue Regular - Diet - Liquid Texture Continue Regular - Tube Feed Continue N/A - Bladder care per protocol - Weight Bearing Precaution NWB RUE WBAT right LE - Fall Precaution Bed alarm TABS alarm Wheel chair alarm - Skin care per protocol - Diet - Solid Texture Continue Regular - Shower allowing shower for Dementia, TBI, Stroke, or others - Balance for Weakness - Bed mobility for ADL deficits - Cognition - orientation for Dementia - Dressing Status: indep for ADL deficits - Eating for ADL deficits - Grooming Status: indep for ADL deficits - Toilet Transfer for ADL deficits Status: indep - Bed to Chair Transfer sbt Status: indep for ADL deficits - Tub Transfer for ADL deficits Status: indep - Hygiene for ADL deficits - Shower Transfer for ADL deficits Status: indep - Wheel Chair to Bed Transfer Status: indep for ADL deficits FUNCTIONAL STATUS: UPDATED AT WEEKLY TEAM CONFERENCE - Bladder Same accident frequency: 7-Ind - No accidents in the past 7 days - Bowel Same accident frequency: 7-Ind - No accidents in the past 7 days - Walking Same score based on distance walked: 0(N/A) Same score based on distance walked: 1(<=50ft) - Wheelchair Same score based on distance traveled: 0(N/A) FUNCTIONAL STATUS: - Self-Care A. Eating Ind B. Grooming Tamara C. Bathing Marilyn D. Dressing - Upper Marilyn E. Dressing - Lower modA F. Toileting sup - Sphincter Control G. Bladder control Marilyn H. Bowel control Marilyn - Transfers Control I. Bed/Chair/Wheelchair sup J. Toilet sup K. Tub/Shower sup - Locomotion L. Walk/Wheelchair (B) Marilyn M. Stairs modA - Communication N. Comprehension (B) sup O. Expression (B) sup - Social Cognition P. Social Interaction Tamara Q. Problem Solving Tamara R. Memory Tamara - Endurance Good - Balance Good - Safety Awareness Good QI SCORES: - Self-Care A. Eating 88-Not attempted due to medical condition or safety concerns B. Oral hygiene 03-Partial/moderate assistance C. Toileting hygiene 03-Partial/moderate assistance E. Shower/bathe self 88-Not attempted due to medical condition or safety concerns F. Upper body dressing 02-Substantial/maximal assistance G. Lower body dressing 02-Substantial/maximal assistance H. Putting on/taking off footwear 02-Substantial/maximal assistance - Mobility A. Roll left and right 03-Partial/moderate assistance B. Sit to lying 03-Partial/moderate assistance C. Lying to sitting on side of bed 03-Partial/moderate assistance D. Sit to stand 03-Partial/moderate assistance E. Chair/[id number] transfer 03-Partial/moderate assistance F. Toilet transfer 03-Partial/moderate assistance G. Car transfer 88-Not attempted due to medical condition or safety concerns I. Walk 10 feet 03-Partial/moderate assistance J. Walk 50 feet with two turns 88-Not attempted due to medical condition or safety concerns K. Walk 150 feet 88-Not attempted due to medical condition or safety concerns L. Walking 10 feet on uneven surfaces 88-Not attempted due to medical condition or safety concerns M. 1 step (curb) 88-Not attempted due to medical condition or safety concerns N. 4 steps 88-Not attempted due to medical condition or safety concerns O. 12 steps 88-Not attempted due to medical condition or safety concerns P. Picking up object 88-Not attempted due to medical condition or safety concerns R. Wheel 50 feet with two turns S. Wheel 150 feet - Bladder and Bowel Bladder continence Bowel continence - Endurance Fair - Balance Fair - Safety Awareness Fair CURRENT [facility]. 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
[2021-01-21] MEDS: MELATONIN 3 MG TABLET PO SCH (19:13)
[2021-01-21] MEDS: ATORVASTATIN 80 MG TAB PO SCH (19:13)
[2021-01-21] MEDS: TRAZODONE 50 MG TABLET PO SCH (19:13)
[2021-01-22] MEDS: ENOXAPARIN 40 MG/0.4 ML SQ SCH (06:39)
[2021-01-22] MEDS: PANTOPRAZOLE 40MG TABLET PO SCH (06:39)
[2021-01-22] MEDS: NYSTATIN PWDR 100000 UNIT/GM TOP SCH ×2 (07:20→20:00)
[2021-01-22] MEDS: ZINC OXIDE 40% 30 GM TUBE TOP PRN (07:21)
[2021-01-22] MEDS: INSULIN -REGULAR HUMAN 50 UNIT/0.5 ML ML SQ SCH ×4 (07:30→20:37)
[2021-01-22] MEDS: ENSURE HIGH PROTEIN 237 ML CAN PO SCH ×2 (08:00→20:34)
[2021-01-22] MEDS: INSULIN GLARGINE 100 UNITS/ML SQ SCH ×2 (08:11→20:33)
[2021-01-22] MEDS: INSULIN LISPRO 100 UNIT/1 ML SQ SCH ×2 (08:12→20:35)
[2021-01-22] MEDS: DOCUSATE NA/SENNA CONC 1 TAB PO SCH ×2 (08:15→20:33)
[2021-01-22] MEDS: NIFEDIPINE XL 90 MG TABLET PO SCH (08:16)
[2021-01-22] MEDS: hydroCHLOROthiazide 25 MG TAB PO SCH (08:16)
[2021-01-22] MEDS: FORMULATION-R RECTAL 57GM PR PRN (08:16)
[2021-01-22] MEDS: MAGNESIUM OXIDE 400 MG TAB PO SCH ×2 (08:16→20:35)
[2021-01-22] MEDS: METFORMIN ER 500 MG TAB PO SCH ×2 (08:17→17:00)
[2021-01-22] MEDS: NAPROXEN 250 MG TAB PO SCH ×2 (08:17→17:03)
[2021-01-22] MEDS: CRANBERRY FRUIT EXTRACT 400 MG CAP PO SCH ×2 (08:18→20:34)
[2021-01-22] MEDS: CALCIUM CARB 500MG/VIT D 200 IU TAB PO SCH (08:18)
[2021-01-22] MEDS: POTASSIUM CL SA 10 MEQ TAB PO SCH (08:18)
[2021-01-22] MEDS: GABAPENTIN 100 MG CAP PO SCH ×2 (08:19→20:35)
[2021-01-22] MEDS: IRBESARTAN 150 MG TAB PO SCH (08:19)
[2021-01-22] MEDS: METOPROLOL TAR 50 MG TAB PO SCH ×2 (08:19→17:00)
--- NOTE | 2021-01-22 10:02 | P.RH.PN ---
Vital Signs: Last Vital Signs Temp 96.8 F 01/22/21 07:08 Pulse 72 01/22/21 08:19 Resp 18 01/22/21 07:08 BP 149/75 H 01/22/21 08:19 Pulse Ox 100 01/22/21 07:08 Laboratory: Laboratory Last Values WBC 6.50 K/uL (4.3-10.9) D 01/21/21 05:46 RBC 3.82 M/uL (3.86-4.86) L 01/21/21 05:46 Hgb 11.0 g/dL (12.0-15.0) L 01/21/21 05:46 Hct 32.3 % (36.0-45.0) L 01/21/21 05:46 MCV 84.6 fL (80-100) 01/21/21 05:46 MCH 28.8 pg (27.0-35.0) 01/21/21 05:46 MCHC 34.1 g/dL (32.0-36.0) 01/21/21 05:46 RDW 15.1 % (12.1-15.2) 01/21/21 05:46 Plt Count 374 K/uL (152-406) 01/21/21 05:46 MPV 7.5 fL (7.6-11.3) L 01/21/21 05:46 Neutrophils % 51.4 % (41.7-73.7) 01/21/21 05:46 Lymphocytes % 33.5 % (15.3-44.8) 01/21/21 05:46 Monocytes % 7.9 % (3.3-12.3) 01/21/21 05:46 Eosinophils % 6.0 % (0-4.4) H 01/21/21 05:46 Basophils % 1.2 % (0-1.3) 01/21/21 05:46 Absolute Neutrophils 3.3 K/uL (1.8-8.0) 01/21/21 05:46 Absolute Lymphocytes 2.2 K/uL (0.7-4.9) 01/21/21 05:46 Absolute Monocytes 0.5 K/uL (0.1-1.3) 01/21/21 05:46 Absolute Eosinophils 0.4 K/uL (0-0.5) 01/21/21 05:46 Absolute Basophils 0.1 K/uL (0-0.5) 01/21/21 05:46 Sodium 139 mmol/L (136-145) 01/21/21 05:46 Potassium 4.2 mmol/L (3.5-5.1) 01/21/21 05:46 Chloride 104 mmol/L (98-107) 01/21/21 05:46 Carbon Dioxide 29 mmol/L (21-32) 01/21/21 05:46 BUN 22 mg/dL (7-18) H 01/21/21 05:46 Creatinine 0.70 mg/dL (0.55-1.3) 01/21/21 05:46 Estimated GFR 82 mL/min (=/>90) L 01/21/21 05:46 Glucose 130 mg/dL (74-106) H 01/21/21 05:46 POC Glucose 103 mg/dL (65-120) 01/22/21 06:57 Calcium 8.8 mg/dL (8.5-10.1) 01/21/21 05:46 Magnesium 1.9 mg/dL (1.8-2.4) 01/21/21 05:46 Albumin 2.8 g/dL (3.4-5.0) L 01/21/21 05:46 Prealbumin 28.5 mg/dL (20-40) 01/21/21 05:46 Urine Color Yellow (Yellow) 01/12/21 17:05 Urine Appearance Clear (Clear) 01/12/21 17:05 Urine pH 5.5 (5.0-7.0) 01/12/21 17:05 Ur Specific [place] 1.020 (1.005-1.030) 01/12/21 17:05 Glucose (UA)(Auto) 3+ (Negative) H 01/12/21 17:05 Urine Ketones 1+ (Negative) H 01/12/21 17:05 Urine Blood Negative (Negative) 01/12/21 17:05 Urine Nitrite Negative (Negative) 01/12/21 17:05 Urine Bilirubin Negative (Negative) 01/12/21 17:05 Urine Urobilinogen 0.2 mg/dL (0.2-1.0) 01/12/21 17:05 Ur Leukocyte Esterase 1+ (Negative) H 01/12/21 17:05 Urine RBC <5 /HPF (NONE SEEN) 01/12/21 17:05 Urine WBC <5 /HPF (<5) 01/12/21 17:05 Ur Squamous Epith Cells <5 /HPF (NONE SEEN) 01/12/21 17:05 Urine Bacteria <20 /HPF (<20) 01/12/21 17:05 Urine Mucus Light /HPF (NONE SEEN) 01/12/21 17:05 Urine Culture Reflexed Not needed 01/12/21 17:05 Urine Total Protein Negative (Negative) 01/12/21 17:05 SARS-CoV-2 Rap RNA(RT-PCR) Negative (NEGATIVE) 01/12/21 15:20 Weight: 226 lb 4.8 oz Left Arm Skin Alteration: Bruising Skin Temperature: Cool Skin Color: Normal Skin Tone Skin Turgor: Normal Skin Tone: Elastic Wound Present: No Closed Surgical Incision Present: No Negative Pressure Wound Therapy Present: No Physician Update: She is doing fairly well except for short term memory. She does much better with problem solving. At minimum assistance with ADLs. Walking 1000' without an assistive device. Up and down 15 steps with independence. Labs are reviewed and are stable. 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 desitin cream available for redness at the bottom Functional Improvement: Patient was able to meet all short-term and long-term goals, w/ the exception of a car transfer, due to unavailablity. Patient presents w/ good overall work ethic. Summary: Patient's care plan and senior care goals have been reviewed and revised as necessary. Please see the Rehabilitation Signature page for all necessary signatures.
[2021-01-22] MEDS: TRAZODONE 50 MG TABLET PO SCH (20:36)
[2021-01-22] MEDS: ATORVASTATIN 80 MG TAB PO SCH (20:36)
[2021-01-22] MEDS: MELATONIN 3 MG TABLET PO SCH (20:37)
[2021-01-23] MEDS: PANTOPRAZOLE 40MG TABLET PO SCH (06:48)
[2021-01-23] MEDS: ENOXAPARIN 40 MG/0.4 ML SQ SCH (06:49)
[2021-01-23 07:29] VITALS: BP 157/69; TEMP 97.6
[2021-01-23] MEDS: INSULIN -REGULAR HUMAN 50 UNIT/0.5 ML ML SQ SCH ×2 (07:30→11:41)
[2021-01-23] MEDS: INSULIN LISPRO 100 UNIT/1 ML SQ SCH (07:58)
[2021-01-23] MEDS: INSULIN GLARGINE 100 UNITS/ML SQ SCH (07:59)
[2021-01-23] MEDS: DOCUSATE NA/SENNA CONC 1 TAB PO SCH (08:00)
[2021-01-23] MEDS: CRANBERRY FRUIT EXTRACT 400 MG CAP PO SCH (08:00)
[2021-01-23] MEDS: ENSURE HIGH PROTEIN 237 ML CAN PO SCH (08:00)
[2021-01-23] MEDS: hydroCHLOROthiazide 25 MG TAB PO SCH (08:01)
[2021-01-23] MEDS: METFORMIN ER 500 MG TAB PO SCH (08:01)
[2021-01-23] MEDS: POTASSIUM CL SA 10 MEQ TAB PO SCH (08:01)
[2021-01-23] MEDS: NIFEDIPINE XL 90 MG TABLET PO SCH (08:01)
[2021-01-23] MEDS: NAPROXEN 250 MG TAB PO SCH (08:02)
[2021-01-23] MEDS: METOPROLOL TAR 50 MG TAB PO SCH (08:02)
[2021-01-23] MEDS: IRBESARTAN 150 MG TAB PO SCH (08:03)
[2021-01-23] MEDS: MAGNESIUM OXIDE 400 MG TAB PO SCH (08:03)
[2021-01-23] MEDS: CALCIUM CARB 500MG/VIT D 200 IU TAB PO SCH (08:03)
[2021-01-23] MEDS: GABAPENTIN 100 MG CAP PO SCH (08:03)
[2021-01-23] MEDS: NYSTATIN PWDR 100000 UNIT/GM TOP SCH (08:04)
[2021-01-23] MEDS: ZINC OXIDE 40% 30 GM TUBE TOP PRN (08:04)
== END 2021-01-23 14:00 | disposition home health service (06) | DRG 57 ==
LOC: 5TH 13:30
PROVIDERS: ADMIT Psychiatry & Neurology Neurology with Special Qualifications in Child Neurology; ATTEND Psychiatry & Neurology Neurology with Special Qualifications in Child Neurology
DX: I69.351 Hemiplegia and hemiparesis following cerebral infarction affecting right dominant side (principal); E11.65 Type 2 diabetes mellitus with hyperglycemia; I10 Essential (primary) hypertension; F41.9 Anxiety disorder, unspecified; E78.00 Pure hypercholesterolemia, unspecified; Z20.822 Contact with and (suspected) exposure to COVID-19
CPT/HCPCS: 36415; 80048; 81001; 82040; 82947; 83735; 84134; 85025; 87086; 87088; 92507; 92523; 97110; 97112; 97116; 97127; 97161; 97530; J1650; J1815; U0002; U0003

== ENCOUNTER 2021-02-06 00:49 | Inpatient (IN) | payer OTHER ==
--- OUTSIDE RECORDS SUMMARY | 2021-02-06 01:02 | XMS REPORT | Continuity of Care Document ---
:1950 Author Organization [facility] t Address [address] [place] [address] Care Team Providers Name Role Phone LITO Attending Clinician Unavailable FELIBERTO MILLER Attending Clinician Unavailable FELIBERTO MILLER Admitting Clinician Unavailable Payers Payer Name Policy Type Policy Number Effective Date Expiration Date S ledy MEDICARE A B [id number] 2013 00:00:00 GENERIC MEDICARE [id number] 2020 SUPPLEMENT 00:00:00 Problems This patient has no known problems. Allergies, Adverse Reactions, Alerts Allergy Allergy Status Severity Reaction(s) Onset Inactive Treating Comm ents Source Name Type Date Date Clinician NO KNOWN Allergy Active [facility] Medications This patient has no known medications. [...] Department ID 2021-01-05 2021-01-12 Inpatient ER SHARATH OMRSE [facility] Neuro ICU [id number] [facility] 18:51:00 12:41:00 Results Test Description Test Time Test Comments Results Result Comments Source POCT-GLUCOSE METER 2021-01-12 08:55:56 Test Item Value Reference Range Interpretation Comme nts POC-GLUCOSE METER (BEAKER) 290 mg/dL 70-110 H : TESTED AT [facility] 6720 MP (test code = 1538) [place], [address]: Lozenge Dough Mixer/Techni kenzie ID = [id number] for Nadiya Alonso [id number] 05:19:28 Test Item Value Reference Range Interpretation Comments MAGNESIUM (BEAKER) (test code = 1.6 mg/dL 1.6-2.6 627) Lozenge Dough Mixer ID - CONOR [id number] 05:19:28 Test Item Value Reference Range Interpretation Comments PHOSPHORUS (BEAKER) (test code = 4.0 mg/dL 2.3-4.7 604) Lozenge Dough Mixer ID - CONOR LBASIC METABOLIC [id number] 05:19:27 Test Item Value Reference Range Interpretation [...] S NOT APPLICABLE FOR DIALYSIS PATIEN TS. Lozenge Dough Mixer ID - CONOR LCBC W/PLT COUNT & AUTO [id number] 05:09:03 Test Item Value Reference Range Interpretation [...] PERCENT (BEAKER) (test code = 2801) POCT-GLUCOSE [id number] 23:33:30 Test Item Value Reference Range Interpretation Comments POC-GLUCOSE METER 118 mg/dL 70-110 H : TESTED A T [facility] 6720 (BEAKER) (test code = [facility], 1538) [address]: Lozenge Dough Mixer/Techni kenzie ID = [id number] for Kenia Stover POCT-GLUCOSE [id number] 16:42:37 Test Item Value Reference Range Interpretation Comments POC-GLUCOSE METER 179 mg/dL 70-110 H : TESTED A T [facility] 6720 (BEAKER) (test code = [facility], 1538) [address]: Lozenge Dough Mixer/Techni kenzie ID = [id number] for An rayshawn, Nadiya POCT-GLUCOSE [id number] 12:48:21 Test Item Value Reference Range Interpretation Comments POC-GLUCOSE METER 414 mg/dL 70-110 HH : TESTED A T [facility] 6720 (BEAKER) (test code = [facility], 1538) [address]: Lozenge Dough Mixer/Techni kenzie ID = [id number] for An rayshawn, Nadiya POCT-GLUCOSE [id number] 07:23:54 Test Item Value Reference Range Interpretation Comments POC-GLUCOSE METER 307 mg/dL 70-110 H : TESTED A T [facility] 6720 (BEAKER) (test code = [facility], 1538) [address]: Lozenge Dough Mixer/Techni kenzie ID = [id number] for Sae field (contract)Ivone [id number] 05:34:22 Test Item Value Reference Range Interpretation Comments MAGNESIUM (BEAKER) (test code = 1.7 mg/dL 1.6-2.6 627) Lozenge Dough Mixer ID - TRISH [id number] 05:34:22 Test Item Value Reference Range Interpretation Comments PHOSPHORUS (BEAKER) (test code = 3.6 mg/dL 2.3-4.7 604) Lozenge Dough Mixer ID - TRISH MBASIC METABOLIC [id number] 05:34:21 Test Item Value Reference Range Interpretation [...] S NOT APPLICABLE FOR DIALYSIS PATIEN TS. Lozenge Dough Mixer ID - TRISH MCBC W/PLT COUNT & AUTO [id number] 04:48:58 Test Item Value Reference Range Interpretation [...] PERCENT (BEAKER) (test code = 2801) POCT-GLUCOSE [id number] 21:55:36 Test Item Value Reference Range Interpretation Comments POC-GLUCOSE METER 308 mg/dL 70-110 H : TESTED A T [facility] 6720 (BEAKER) (test code = [facility], [facility]8) [address]: Lozenge Dough Mixer/Techni kenzie ID = [id number] for Fang Tracey POCT-GLUCOSE [id number] 16:47:18 Test Item Value Reference Range Interpretation Comments POC-GLUCOSE METER 349 mg/dL 70-110 H : TESTED A T [facility] 6720 (BEAKER) (test code = [facility], [facility]8) [address]: Lozenge Dough Mixer/Techni kenzie ID = [id number] for MIKE COLMENARESL POCT-GLUCOSE [id number] 12:07:39 Test Item Value Reference Range Interpretation Comments POC-GLUCOSE METER 429 mg/dL 70-110 HH : TESTED A T [facility] 6720 (BEAKER) (test code = [facility], 1538) [address]: Lozenge Dough Mixer/Techni kenzie ID = [id number] for CAMI MATHUR POCT-GLUCOSE [id number] 09:13:52 Test Item Value Reference Range Interpretation Comments POC-GLUCOSE METER 357 mg/dL 70-110 H : TESTED A T [facility] 6720 (BEAKER) (test code = [facility], 1538) [address]: Lozenge Dough Mixer/Techni kenzie ID = [id number] for CAMI MATHUR [id number] 08:01:34 Test Item Value Reference Range Interpretation Comments PHOSPHORUS (BEAKER) (test code = 3.4 mg/dL 2.3-4.7 604) Lozenge Dough Mixer ID - CONOR [id number] 07:20:33 Test Item Value Reference Range Interpretation Comments MAGNESIUM (BEAKER) (test code = 1.9 mg/dL 1.6-2.6 627) Lozenge Dough Mixer ID - CONOR LBASIC METABOLIC [id number] 07:20:32 Test Item Value Reference Range Interpretation [...] S NOT APPLICABLE FOR DIALYSIS PATIEN TS. Lozenge Dough Mixer ID - CONOR LCBC W/PLT COUNT & AUTO [id number] 07:02:47 Test Item Value Reference Range Interpretation [...] PERCENT (BEAKER) (test code = 2801) POCT-GLUCOSE [id number] 00:19:20 Test Item Value Reference Range Interpretation Comments POC-GLUCOSE METER 390 mg/dL 70-110 H : TESTED Julissa Mckeon [facility] 6720 (BEAKER) (test code = [place], 1538) [address]: Lozenge Dough Mixer/Techni kenzie ID = [id number] for Fang Tracey POCT-GLUCOSE [id number] 18:02:03 Test Item Value Reference Range Interpretation Comments POC-GLUCOSE METER 390 mg/dL 70-110 H : TESTED A T [facility] 6720 (RADHA) (test code = [place] [facility], 1538) [address]: Lozenge Dough Mixer/Techni kenzie ID = [id number] for CAMI MATHUR POCT-GLUCOSE [id number] 13:25:11 Test Item Value Reference Range Interpretation Comments POC-GLUCOSE METER 449 mg/dL 70-110 HH : Notified RN/MD: (RADHA) (test code = TESTED AT [facility] 6720 1538) [facility], [address]: Lozenge Dough Mixer/Techni kenzie ID = [id number] for CAMI MATHUR POCT-GLUCOSE [id number] 08:48:27 Test Item Value Reference Range Interpretation Comments POC-GLUCOSE METER 347 mg/dL 70-110 H : Notified RN/MD: (RADHA) (test code = TESTED AT [place] [address] 1538) [facility], [address]: Lozenge Dough Mixer/Techni kenzie ID = [id number] for CAMI MATHUR CBC W/PLT COUNT & AUTO [id number] 07:45:14 Test Item Value Reference Range Interpretation [...] (BEAKER) (test code = 2801) BASIC METABOLIC [id number] 07:42:41 Test Item Value Reference Range Interpretation [...] S NOT APPLICABLE FOR DIALYSIS PATIEN TS. Lozenge Dough Mixer ID - RAÚL [id number] 07:42:40 Test Item Value Reference Range Interpretation Comments MAGNESIUM (BEAKER) 1.7 mg/dL 1.6-2.6 Specimen slightly (test code = 627) hemolyzed Lozenge Dough Mixer ID - RAÚL [id number] 07:42:40 Test Item Value Reference Range Interpretation Comments PHOSPHORUS (BEAKER) 3.6 mg/dL 2.3-4.7 Specimen slightly (test code = 604) hemolyzed Lozenge Dough Mixer ID Carmenza OLSEN WPOCT-GLUCOSE [id number] 21:45:21 Test Item Value Reference Range Interpretation Comments POC-GLUCOSE METER 331 mg/dL 70-110 H : TESTED A T [facility] 6720 (BEAKER) (test code = [facility], 153) [address]: Lozenge Dough Mixer/Techni kenzie ID = [id number] for Homar Russo POCT-GLUCOSE [id number] 17:30:00 Test Item Value Reference Range Interpretation Comments POC-GLUCOSE METER 299 mg/dL 70-110 H : TESTED A T [facility] 6720 (BEAKER) (test code = [facility], 153) [address]: Lozenge Dough Mixer/Techni kenzie ID = [id number] for An derson, Nadiya POCT-GLUCOSE [id number] 13:29:42 Test Item Value Reference Range Interpretation Comments POC-GLUCOSE METER 352 mg/dL 70-110 H : TESTED A T [facility] 6720 (BEAKER) (test code = [facility], 1538) [address]: Lozenge Dough Mixer/Techni kenzie ID = [id number] for Maxine Mixon POCT-GLUCOSE [id number] 08:55:09 Test Item Value Reference Range Interpretation Comments POC-GLUCOSE METER 304 mg/dL 70-110 H : TESTED A T [facility] 6720 (BEAKER) (test code = [facility], 153) [address]: Lozenge Dough Mixer/Techni kenzie ID = [id number] for An derson, Nadiya CBC W/PLT COUNT & AUTO [id number] 07:29:43 Test Item Value Reference Range Interpretation [...] (BEAKER) (test code = 2801) BASIC METABOLIC [id number] 05:34:55 Test Item Value Reference Range Interpretation [...] S NOT APPLICABLE FOR DIALYSIS PATIEN TS. Lozenge Dough Mixer ID - RAÚL [id number] 05:34:54 Test Item Value Reference Range Interpretation Comments MAGNESIUM (BEAKER) 1.5 mg/dL 1.6-2.6 L Specimen slightly (test code = 627) hemolyzed Lozenge Dough Mixer ID - RAÚL [id number] 05:34:54 Test Item Value Reference Range Interpretation Comments PHOSPHORUS (BEAKER) 3.2 mg/dL 2.3-4.7 Specimen slightly (test code = 604) hemolyzed Lozenge Dough Mixer ID Carmenza OLSEN WSARS-COV2/RT-PCR ([facility])2021-01-08 00:23:58 Test Item Value Reference Range Interpretation Comments SARS-COV2/RT-PCR (test Negative Not Detected, Negative, code = 4903461) See external report for linked test SARS-COV-2 PERFORMING LAB [facility] ROSENDO (test code = 3903827) Negative result for this test determines that [...] 564(g) of the Act.Fact Sheet for Healthcare Providers:https://www.[employer]/sites/default/files/product/documents/Fact_Shee z_PY_Emtbanwgj_Ryxm_FVOO-EvH-0.pdfFact Sheet for Healthcare Patients:https://www.[employer]/sites/default/files/product/ documents/Wobt_Qhobq_Cqrlzste_Xdth_HOZW-ZgD-5.pdfPerforming Laboratory:[facility], [place] [address]HJGI-WHJZVQR METER 2021-01-07 20:55:22 Test Item Value Reference Range Interpretation Comments POC-GLUCOSE METER 307 mg/dL 70-110 H : TESTED A T [facility] 6720 (RADHA) (test code = [place], 1538) [address]: Lozenge Dough Mixer/Techni kenzie ID = [id number] for Holland hamlin (contract)Geraldo POCT-GLUCOSE [id number] 18:16:42 Test Item Value Reference Range Interpretation Comments POC-GLUCOSE METER 343 mg/dL 70-110 H : TESTED A T [facility] 6720 (BEAKER) (test code = [place] [facility], 1538) [address]: Lozenge Dough Mixer/Techni kenzie ID = [id number] for BOY FISCHER POCT-GLUCOSE [id number] 11:38:09 Test Item Value Reference Range Interpretation Comments POC-GLUCOSE METER 307 mg/dL 70-110 H : TESTED A T [facility] 6720 (BEAKER) (test code [facility], = 1538) [address]: Lozenge Dough Mixer/Techni kenzie ID = [id number] for Kostas-Lefty s Marie POCT-GLUCOSE [id number] 08:02:28 Test Item Value Reference Range Interpretation Comments POC-GLUCOSE METER 237 mg/dL 70-110 H : TESTED A T [facility] 6720 (BEAKER) (test code [facility], = 1538) [address]: Lozenge Dough Mixer/Techni kenzie ID = [id number] for Kostas-Marshallga s, Marie [id number] 03:44:24 Test Item Value Reference Range Interpretation Comments PHOSPHORUS (BEAKER) (test code = 3.9 mg/dL 2.3-4.7 604) Lozenge Dough Mixer ID - TRISH MBASIC METABOLIC [id number] 03:44:23 Test Item Value Reference Range Interpretation [...] S NOT APPLICABLE FOR DIALYSIS PATIEN TS. Lozenge Dough Mixer ID - TRISH [id number] 03:44:23 Test Item Value Reference Range Interpretation Comments MAGNESIUM (BEAKER) (test code = 1.7 mg/dL 1.6-2.6 627) Lozenge Dough Mixer ID - TRISH MCBC W/PLT COUNT & AUTO [id number] 03:27:18 Test Item Value Reference Range Interpretation [...] PERCENT (BEAKER) (test code = 2801) POCT-GLUCOSE [id number] 03:23:46 Test Item Value Reference Range Interpretation Comments POC-GLUCOSE METER 180 mg/dL 70-110 H : TESTED A T [facility] 6720 (BEAKER) (test code = [facility], 1538) [address]: Lozenge Dough Mixer/Techni kenzie ID = [id number] for NICOLE POWERS POCT-GLUCOSE [id number] 22:13:28 Test Item Value Reference Range Interpretation Comments POC-GLUCOSE METER 187 mg/dL 70-110 H : TESTED A T [facility] 6720 (BEAKER) (test code = [facility], 1538) [address]: Lozenge Dough Mixer/Techni kenzie ID = [id number] for Oneyda Salas MR, BRAIN, WITHOUT [id number] 20:05:00Reason for exam:->Ischemic Stroke EvaluationESTELLE [facility]: [facility]KARI : 1950 Sex: FFINAL REPORT MR, [...] Date/Time: 01/06/2021 20:05:22 URINALYSIS W/ REFLEX URINE [id number] 14:32:30 Test Item Value Reference Range Interpretation [...] = 1521) SOURCE(BEAKER) (test code = 2795) Lozenge Dough Mixer ID - [auto]Lozenge Dough Mixer ID - [id number] 13:15:40 Test Item Value Reference Range Interpretation Comments RPR SCREEN (BEAKER) (test code = Nonreactive Nonreactive 420) POCT-GLUCOSE [id number] 12:47:57 Test Item Value Reference Range Interpretation Comments POC-GLUCOSE METER 244 mg/dL 70-110 H : TESTED A T [facility] 6720 (BEAKER) (test code = [facility] Chung [facility], 1538) [address]: Lozenge Dough Mixer/Techni kenzie ID = [id number] for Ar duanerong Latesa POCT-GLUCOSE [id number] 07:15:12 Test Item Value Reference Range Interpretation Comments POC-GLUCOSE METER 142 mg/dL 70-110 H : TESTED A T [facility] 6720 (BEAKER) (test code = [facility], 1538) [address]: Lozenge Dough Mixer/Techni kenzie ID = [id number] for Inge Booker CT, BRAIN, WITHOUT [id number] 07:11:00Unlisted Reason for Exam - Click Yes and Enter Reason Below->No [facility]RON : 1950 Sex: FFINAL REPORT [...] MDReport Verified Date/Time: 01/06/2021 07:11:22 Reading Location: [address] Neuro Reading Room [facility] [id number] 07:11:00Unlisted Reason for Exam - Click Yes and Enter Reason Below->No [facility] : 1950 Sex: FFINAL REPORT [...] MDReport Verified Date/Time: 01/06/2021 07:11:22 Reading Location: [facility] B1 C013V Neuro Reading Room CT, CAROTID, [id number] 07:11:00Unlisted Reason for Exam - Click Yes and Enter Reason Below->No [facility] CENTERName: BAKARI HUITRON : 1950 Sex: [...] WESLEYeport Verified Date/Time: 01/06/2021 07:11:22 Reading Location: [facility] C013V Neuro Reading Room CALCIUM, [id number] 06:41:59 Test Item Value Reference Range Interpretation Comments CALCIUM IONIZED (BEAKER) (test 1.14 mmol/L 1.12-1.27 code = 698) PH, BLOOD (BEAKER) (test code = 7.43 1810) BASIC METABOLIC [id number] 05:42:30 Test Item Value Reference Range Interpretation [...] S NOT APPLICABLE FOR DIALYSIS PATIEN TS. Lozenge Dough Mixer ID - TRISH MLIPID [id number] 05:42:30 Test Item Value Reference Range Interpretation [...] Borderline 130-159 High 160-189 Very High >=190 Lozenge Dough Mixer ID - TRISH [id number] 05:42:29 Test Item Value Reference Range Interpretation Comments MAGNESIUM (BEAKER) 2.4 mg/dL 1.6-2.6 Specimen slightly (test code = 627) hemolyzed Lozenge Dough Mixer ID - TRISH [id number] 05:42:29 Test Item Value Reference Range Interpretation Comments PHOSPHORUS (BEAKER) 4.5 mg/dL 2.3-4.7 Specimen slightly (test code = 604) hemolyzed Lozenge Dough Mixer ID - TRISH MCBC W/PLT COUNT & AUTO [id number] 05:01:08 Test Item Value Reference Range Interpretation [...] 2801) RAD, SHOULDER, COMPLETE (MIN 2 VIEWS), [id number] 03:48:00Reason for exam:- >R shoulder fracture [facility] : 1950 Sex: FFINAL REPORT [...] Specimen slightly (test code = 627) hemolyzed Lozenge Dough Mixer ID - TRISH [id number] 01:47:26 Test Item Value Reference Range Interpretation Comments POTASSIUM (BEAKER) 4.2 meq/L 3.5-5.1 Specimen slightly (test code = 379) hemolyzed Lozenge Dough Mixer ID - TRISH MPOCT-GLUCOSE [id number] 22:16:03 Test Item Value Reference Range Interpretation Comments POC-GLUCOSE METER 215 mg/dL 70-110 H : TESTED A T [facility] 6720 (BEAKER) (test code = [place], 1538) [address]: Lozenge Dough Mixer/Techni kenzie ID = [id number] for Andrei dash Inge TSH/FREE T4 IF [id number] 20:35:33 Test Item Value Reference Range Interpretation Comments THYROID STIMULATING HORMONE 1.104 uIU/mL 0.350-4.940 (BEAKER) (test code = 772) Lozenge Dough Mixer ID - ADMINVITAMIN B12 AND [id number] 20:35:33 Test Item Value Reference Range Interpretation Comments VITAMIN B12 756 pg/mL 213-816 (BEAKER) (test code = 774) FOLATE (BEAKER) 13.50 ng/mL See_Comment [Automated message] (test code = 362) The system which generated this result transmitted ref erence range: >=7.00. The reference range was not used to interpr et this result as normal/abnormal . Lozenge Dough Mixer ID - ADMINHEMOGLOBIN [id number] 20:20:55 Test Item Value Reference Range Interpretation Comments HEMOGLOBIN A1C (BEAKER) (test code = 9.0 % 4.3-6.1 H 368) HIGH SENSITIVITY TROPONIN [id number] 20:05:30 Test Item Value Reference Range Interpretation Comments HIGH SENSITIVITY < pg/ml See_Comment [Automated message] TROPONIN I (test code = The system which 5051961) generated this result transmitted ref erence range: <=17. Th e reference range was not used to interpr et this result as normal/abnormal . Lozenge Dough Mixer ID - ADMINThe BLADE BONER STAT High Sensitivity Troponin-I results should be used in conjunction with other diagnostic information such as ECG, clinical observations and information, and patientsymptoms to aid in the diagnosis of [place]. [id number] 20:01:52 Test Item Value Reference Range Interpretation Comments PHOSPHORUS (BEAKER) (test code = 7.2 mg/dL 2.3-4.7 H 604) Lozenge Dough Mixer ID - [id number] 20:01:51 Test Item Value Reference Range Interpretation Comments MAGNESIUM (BEAKER) (test code = 1.1 mg/dL 1.6-2.6 L 627) Lozenge Dough Mixer ID - ADMINBASIC METABOLIC [id number] 20:01:50 Test Item Value Reference Range Interpretation [...] S NOT APPLICABLE FOR DIALYSIS PATIEN TS. Lozenge Dough Mixer ID - ADMINCBC W/PLT COUNT & AUTO [id number] 19:37:16 Test Item Value Reference Range Interpretation [...]
[2021-02-06] MEDS ORDERED: ONDANSETRON 4 MG/2 ML VIAL ONE ×2 (02:06→05:29)
[2021-02-06] MEDS ORDERED: FAMOTIDINE 20 MG/2 ML VIAL IV ONE ×2 (02:06→05:30)
[2021-02-06 03:11] LABS: Urine Blood Negative (Negative); Urine Glucose Trace (Negative); Urine Protein Negative (Negative); Urine Specific Gravity 1.025 (1.005-1.030); Urine pH 5.5 (5.0-7.0)
[2021-02-06 03:21] LABS: Protime INR 0.93
[2021-02-06 03:27] LABS: RBC Red Blood Cell Count 4.24 M/uL (3.86-4.86)
[2021-02-06 03:28] LABS: Absolute Lymphocytes (CBC) 1.7 K/uL (0.7-4.9); Basophils % 0.5 % (0-1.3); Hematocrit 35.5 % (36.0-45.0); Lymphocytes % 15.9 % (15.3-44.8); MPV 8.3 fL (7.6-11.3)
[2021-02-06 03:39] LABS: Urine Bacteria 20-50 /HPF (<20); Urine Mucus 3+ /HPF (NONE SEEN); Urine RBC <5 /HPF (NONE SEEN)
[2021-02-06 03:41] LABS: ALT/SGPT 26 U/L (12-78); AST/SGOT 12 U/L (15-37); Alkaline Phosphatase 82 U/L (45-117); BUN Blood Urea Nitrogen 16 mg/dL (7-18); Bicarbonate 25 mmol/L (21-32); Bilirubin Direct 0.2 mg/dL (0-0.2); Bilirubin Total 0.6 mg/dL (0.2-1.0); Glucose Level 171 mg/dL (74-106); Lipase 118 U/L (73-393); NT PRO-BNP 202 pg/mL (<125); Potassium 3.1 mmol/L (3.5-5.1); Protein, Total 7.2 g/dL (6.4-8.2); Sodium Level 124 mmol/L (136-145); Troponin (Emerg Dept Use Only) < 0.02 ng/mL (0.0-0.045)
[2021-02-06 03:45] LABS: Magnesium 1.3 mg/dL (1.8-2.4)
[2021-02-06 03:49] LABS: Blood Morphology Comment NOT SEEN (NOT SEEN); Platelet Estimate ADEQ; Platelets, Giant OCC; White Blood Cell Scan OK (OK)
[2021-02-06] MEDS ORDERED: NA CHLORIDE 0.9% 1,000 ML ONE (05:01)
[2021-02-06] MEDS ORDERED: MAGNESIUM SULFATE 1 gm IVPB 1 GM/100 ML BAG IV ONE (05:02)
--- NOTE | 2021-02-06 05:07 | ER ---
Nurse's Notes [facility] Name: Fela Ayoub Age: 70 yrs Sex: Female : 1950 Arrival Date: 02/06/2021 Time: 00:52 Bed 19 Private MD: Sahil Howard V Diagnosis: Hypo-osmolality and hyponatremia;Nausea;Weakness;Type 1 diabetes mellitus with hyperglycemia;Hypomagnesemia;Hypokalemia Presentation: 02/06 01:23 Chief complaint: Patient states: pt dx w tia last month and since then has been having mr2 trouble controlling her blood pressure. pt co nausea constipation and vomiting x2 days. Coronavirus screen: Vaccine status: Patient reports receiving the 2nd dose of the covid vaccine. Ebola Screen: No symptoms or risks identified at this time. Initial Sepsis Screen: Does the patient meet any 2 criteria? No. Patient's initial sepsis screen is negative. Does the patient have a suspected source of infection? No. Patient's initial sepsis screen is negative. Risk Assessment: Do you want to hurt yourself or someone else? Patient reports no desire to harm self or others. Onset of symptoms was February 04, 2021. 01:23 Method Of Arrival: Ambulatory mr2 01:23 Acuity: ALE 3 mr2 Triage Assessment: :27 General: Appears in no apparent distress. Behavior is calm, cooperative. Pain: Denies mr2 pain. GI: Reports constipation, nausea, vomiting. Historical: - Allergies: : Hydrocodone-Acetaminophen; hallucination; mr2 01:27 Iodine; mr2 :27 Plavix; mr2 - Home Meds: :27 basaglar kwik pen 6 BID [Active]; amlodipine oral [Active]; irbesartan 300 mg Oral tab mr2 1 tab once daily [Active]; hydrochlorothiazide 25 mg Oral tab 1 tab once daily [Active]; metoprolol tartrate 100 mg Oral tab 1 tab 3 times per day [Active]; ozempic 0.25 weekly [Active]; pravastatin 40 mg Oral tab 1 tab once daily [Active]; radiation [Active]; - PMHx: 01:27 Diabetes - IDDM; High Cholesterol; Hypertension; squamous cell carcinoma; mr2 - PSHx: :27 cardiac stents; section; Cholecystectomy; Coronary artery bypass graft; Total mr2 abdominal hysterectomy; - Immunization history:: Adult Immunizations up to date. - Social history:: Smoking status: Patient denies any tobacco usage or history of. Screenin:29 Abuse screen: Denies threats or abuse. Denies injuries from another. Nutritional mr2 screening: No deficits noted. Tuberculosis screening: No symptoms or risk factors identified. Fall Risk None identified. Assessment: 01:28 GI: Abdomen is round non-distended, obese, Last BM was February 05, 2021. mr2 Vital Signs: 01:11 BP 154 / 55; Pulse 63; Resp 17; Temp 98.6; Pulse Ox 99% on R/A; Weight 97.52 kg (R); mw2 Height 5 ft. 3 in. (160.02 cm); 01:11 Body Mass Index 38.09 (97.52 kg, 160.02 cm) mw2 ED Course: 00:52 Patient arrived in ED. es 00:52 Sahil Howard MD is Private Physician. es 00:59 Ladarius Wells PA is PHCP. cp 00:59 Ladarius Alonso MD is Attending Physician. cp 01:10 Quintin Arreaga, CARLOTA is Primary Nurse. mr2 01:27 Triage completed. mr2 01:27 Arm band placed on. mr2 01:29 Patient has correct armband on for positive identification. Bed in low position. Side mr2 rails up X2. Adult w/ patient. 01:46 XRAY Chest (1 view) In Process Unspecified. EDMS 02:32 Abdomen In Process Unspecified. EDMS 03:45 Notified ED physician of a critical lab result(s). Mag of 1.3 Dr Alonso notified. bb 05:05 Sahil Howard MD is Hospitalizing Provider. agueda 05:39 COVID-19 SARS RT PCR (Document "Date of Onset" if Symptomatic) Sent. mr2 08:56 Report given to CARLOTA Lambert. jg9 09:25 EKG done, by ED staff, reviewed by Ladarius Alonso MD. jg9 09:28 No provider procedures requiring assistance completed. Patient admitted, IV remains in ss place. Administered Medications: 05:16 Discontinued: NS 0.9% 1000 ml IV at 75 ml/hr continuous agueda 02:07 Drug: Pepcid (famotidine) 20 mg Route: IVP; Site: left antecubital; mr2 02:08 Drug: Zofran (Ondansetron) 4 mg Route: IVP; Site: left antecubital; mr2 04:58 Drug: NS 0.9% 1000 ml Route: IV; Rate: 75 ml/hr; Site: left antecubital; mr2 04:58 Drug: Magnesium Sulfate 1 grams Route: IVPB; Infused Over: 1 hrs; Site: left mr2 antecubital; 04:59 Drug: NS 0.9% 500 ml Route: IV; Rate: bolus; Site: left antecubital; mr2 05:38 Drug: Potassium Effervescent Tablet 25 mEq Route: PO; mr2 05:38 Drug: NS 0.9% with KCl 20 mEq/L 1000 ml Route: IV; Rate: 100 ml/hr; Site: left mr2 antecubital; 09:24 Follow up: IV Status: Completed infusion; IV converted to saline lock; IV Intake: [id number] 05:38 Drug: Pepcid (famotidine) 20 mg Route: IVP; Site: left antecubital; mr2 Intake: 09:24 IV: 1000ml; Total: 1000ml. jg9 Outcome: 05:06 Decision to Hospitalize by Provider. agueda 09:25 Admitted to Med/surg accompanied by tech, via wheelchair, Report called to CARLOTA Lambert jg9 09:28 Patient left the ED. ss Signatures: Dispatcher [employer] EDLadarius Arzola MD MD cha Salyer, Edna es Ballard, Brenda, RN RN bb Smirch, Shelby, RN RN Ladarius Wells PA PA cp [place]brook, MyKena 2 Quintin Arreaga RN RN mr2 Caitie Cuellar jg9 Corrections: (The following items were deleted from the chart) 01:31 01:23 Chief complaint: Patient states: pt dx w tia last week and since then has been mr2 having trouble controlling her blood pressure. pt co nausea constipation and vomiting x2 days mr2
--- NOTE | 2021-02-06 05:08 | EDPHYS ---
Physician Documentation [facility] Name: Fela Ayoub Age: 70 yrs Sex: Female : 1950 Arrival Date: 02/06/2021 Time: 00:52 Bed 19 Private MD: Sahil Howard V ED Physician Ladarius Alonso HPI: 02/06 01:20 This 70 yrs old Female presents to ER via Ambulatory with complaints of Vomiting, cp Constipation, High Blood Sugar. 01:20 The patient presents to the emergency department with nausea, that is moderate, cp vomiting, that is intermittent. Onset: The symptoms/episode began/occurred 3 day(s) ago. Possible causes: antibiotics, cephalosporin. Associated signs and symptoms: Pertinent positives: constipation, elevated blood glucose, Pertinent negatives: fever, GI bleeding. Severity of symptoms: in the emergency department the symptoms are unchanged despite home interventions. Historical: - Allergies: :27 Hydrocodone-Acetaminophen; hallucination; mr2 :27 Iodine; mr2 :27 Plavix; mr2 - Home Meds: :27 basaglar kwik pen 6 BID [Active]; amlodipine oral [Active]; irbesartan 300 mg Oral tab mr2 1 tab once daily [Active]; hydrochlorothiazide 25 mg Oral tab 1 tab once daily [Active]; metoprolol tartrate 100 mg Oral tab 1 tab 3 times per day [Active]; ozempic 0.25 weekly [Active]; pravastatin 40 mg Oral tab 1 tab once daily [Active]; radiation [Active]; - PMHx: 01:27 Diabetes - IDDM; High Cholesterol; Hypertension; squamous cell carcinoma; mr2 - PSHx: :27 cardiac stents; section; Cholecystectomy; Coronary artery bypass graft; Total mr2 abdominal hysterectomy; - Immunization history:: Adult Immunizations up to date. - Social history:: Smoking status: Patient denies any tobacco usage or history of. ROS: 01:25 Constitutional: Positive for poor PO intake, Negative for body aches, chills, fever. cp 01:25 Eyes: Negative for injury, pain, redness, and discharge. cp 01:25 ENT: Negative for ear pain, sore throat, difficulty swallowing, difficulty handling secretions. 01:25 Cardiovascular: Negative for chest pain, edema, palpitations. 01:25 Respiratory: Negative for cough, shortness of breath, wheezing. 01:25 Abdomen/GI: Positive for nausea and vomiting, constipation, anorexia, Negative for abdominal pain, diarrhea, hematemesis, black/tarry stool, rectal bleeding. 01:25 : Positive for urinary symptoms. 01:25 Neuro: Negative for altered mental status, headache, weakness. 01:25 All other systems are negative. Exam: 01:30 Constitutional: The patient appears in no acute distress, alert, awake, cp non-diaphoretic, non-toxic, well developed, well nourished. 01:30 Head/Face: Normocephalic, atraumatic. cp 01:30 Eyes: Periorbital structures: appear normal, Conjunctiva: normal, no exudate, no injection, Sclera: no appreciated abnormality, Lids and lashes: appear normal, bilaterally. 01:30 ENT: External ear(s): are unremarkable, Nose: is normal, Mouth: Lips: moist, Oral mucosa: moist, Posterior pharynx: Airway: no evidence of obstruction, patent. 01:30 Neck: ROM/movement: is normal, is supple, without pain, no range of motions limitations, no meningismus. 01:30 Chest/axilla: Inspection: normal. 01:30 Cardiovascular: Rate: normal, Rhythm: regular, Edema: is not appreciated, JVD: is not appreciated. 01:30 Respiratory: the patient does not display signs of respiratory distress, Respirations: normal, no use of accessory muscles, no retractions, labored breathing, is not present, Breath sounds: are clear throughout, no decreased breath sounds, no stridor, no wheezing. 01:30 Abdomen/GI: Inspection: abdomen appears normal, Bowel sounds: active, all quadrants, Palpation: abdomen is soft and non-tender, in all quadrants, rebound tenderness, is not appreciated, involuntary guarding, is not appreciated. 01:30 Back: pain, is absent, ROM is normal. 01:30 Neuro: Orientation: to person, place \\T\\ time. Mentation: is normal. Vital Signs: 01:11 BP 154 / 55; Pulse 63; Resp 17; Temp 98.6; Pulse Ox 99% on R/A; Weight 97.52 kg (R); mw2 Height 5 ft. 3 in. (160.02 cm); 01:11 Body Mass Index 38.09 (97.52 kg, 160.02 cm) mw2 MDM: 01:09 Patient medically screened. [facility] 02:00 Differential diagnosis: gastritis, cholecystitis, pancreatitis, diverticulitis, viral cp gastroenteritis, gastroenteritis. 03:30 Transition of care: After a detail discussion of the patient's case, care is cp transferred to Ladarius Alonso MD. 05:17 Data reviewed: vital signs, nurses notes, EMS record, lab test result(s), EKG, agueda radiologic studies, CT scan, plain films. Data interpreted: nuclear monitoring technician: rate is 63 beats/min, rhythm is regular, Pulse oximetry: on room air is 99 %. Test interpretation: by ED physician or midlevel provider: ECG, plain radiologic studies. Counseling: I had a detailed discussion with the patient and/or guardian regarding: the historical points, exam findings, and any diagnostic results supporting the discharge/admit diagnosis, lab results, radiology results, the need for further work-up and treatment in the hospital. 02/06 01:24 Order name: Basic Metabolic Panel; Complete Time: 04:40 cp 02/06 01:24 Order name: CBC with Diff; Complete Time: 04:40 cp 02/06 01:24 Order name: LFT's; Complete Time: 04:40 cp 02/06 01:24 Order name: Magnesium; Complete Time: 04:40 cp 02/06 01:24 Order name: NT PRO-BNP; Complete Time: 04:40 cp 02/06 01:24 Order name: PT-INR; Complete Time: 04:40 cp 02/06 01:24 Order name: Troponin (emerg Dept Use Only); Complete Time: 04:40 cp 02/06 01:24 Order name: Lipase; Complete Time: 04:40 cp 02/06 01:24 Order name: Urine Microscopic Only; Complete Time: 04:40 cp 02/06 02:42 Order name: CREATININE WHOLE BLOOD; Complete Time: 04:40 EDMS 02/06 03:10 Order name: Urine Dipstick-Ancillary; Complete Time: 04:40 EDMS 02/06 03:41 Order name: Urine Culture [facility] 02/06 03:49 Order name: CBC Smear Scan [facility] 02/06 04:44 Order name: Urine Osmolality [facility] 02/06 01:24 Order name: XRAY Chest (1 view); Complete Time: 16:11 cp 02/06 01:24 Order name: EKG; Complete Time: 01:25 cp 02/06 02:19 Order name: Abdomen EDMS 02/06 04:44 Order name: Osmolality, Serum agueda 02/06 04:44 Order name: Urine Sodium Random agueda 02/06 05:27 Order name: COVID-19 SARS RT PCR (Document "Date of Onset" if Symptomatic) bb 02/06 08:03 Order name: SARS-COV-2 RT PCR; Complete Time: 16:11 EDMS 02/06 01:14 Order name: Accucheck Blood Glucose cp 02/06 01:24 Order name: Cardiac monitoring; Complete Time: 06:20 cp 02/06 01:24 Order name: EKG - Nurse/Tech; Complete Time: 06:20 cp 02/06 01:24 Order name: IV Saline Lock; Complete Time: 06:20 cp 02/06 01:24 Order name: Labs collected and sent; Complete Time: 06:20 cp 02/06 01:24 Order name: O2 Per Protocol; Complete Time: 06:21 cp 02/06 01:24 Order name: O2 Sat Monitoring; Complete Time: 06:21 cp 02/06 01:24 Order name: Cath cp 02/06 01:24 Order name: Urine Dipstick-Ancillary (obtain specimen); Complete Time: 03:00 cp Administered Medications: 05:16 Discontinued: NS 0.9% 1000 ml IV at 75 ml/hr continuous agueda 02:07 Drug: Pepcid (famotidine) 20 mg Route: IVP; Site: left antecubital; mr2 02:08 Drug: Zofran (Ondansetron) 4 mg Route: IVP; Site: left antecubital; mr2 04:58 Drug: NS 0.9% 1000 ml Route: IV; Rate: 75 ml/hr; Site: left antecubital; mr2 04:58 Drug: Magnesium Sulfate 1 grams Route: IVPB; Infused Over: 1 hrs; Site: left mr2 antecubital; 04:59 Drug: NS 0.9% 500 ml Route: IV; Rate: bolus; Site: left antecubital; mr2 05:38 Drug: Potassium Effervescent Tablet 25 mEq Route: PO; mr2 05:38 Drug: NS 0.9% with KCl 20 mEq/L 1000 ml Route: IV; Rate: 100 ml/hr; Site: left mr2 antecubital; 09:24 Follow up: IV Status: Completed infusion; IV converted to saline lock; IV Intake: [id number] 05:38 Drug: Pepcid (famotidine) 20 mg Route: IVP; Site: left antecubital; mr2 Disposition: 05:17 Co-signature as Attending Physician, Ladarius Alonso MD I agree with the assessment and agueda plan of care. Disposition Summary: 02/06/21 05:06 Hospitalization Ordered Hospitalization Status: Inpatient Admission agueda Provider: Sahil Howard cha Location: Telemetry/MedSurg (Inpatient) agueda Condition: Fair agueda Problem: new agueda Symptoms: have improved agueda Bed/Room Type: Standard [facility] Room Assignment: 405(02/06/21 08:20) eb Diagnosis - Hypo-osmolality and hyponatremia agueda - Nausea agueda - Weakness agueda - Type 1 diabetes mellitus with hyperglycemia agueda - Hypomagnesemia agueda - Hypokalemia agueda Forms: - Medication Reconciliation Form agueda - SBAR form agueda Signatures: Dispatcher [employer] EDIL Ladarius Alonso MD MD cha Page, Corey, PA PA Sammi Loya Mike, RN RN mr2 Caitie Cuellar [id number] Corrections: (The following items were deleted from the chart) 02:19 01:25 Abdomen Pelvis W Con+CT.RAD.BRZ ordered. [facility] EDMS 08:20 05:06 agueda eb
[2021-02-06] MEDS ORDERED: POTASSIUM 25 MEQ EFFERV TAB ONE (05:29)
[2021-02-06] MEDS ORDERED: KCL 20 MEQ/100 mL IVPB 20 MEQ/100 ML BAG IV ONE (05:30)
[2021-02-06 07:49] VITALS: BMI 38.0
[2021-02-06] MEDS ORDERED: ACETAMINOPHEN 500 MG TAB PO PRN (09:33)
[2021-02-06] MEDS: MAGNESIUM OXIDE 400 MG TAB PO SCH ×2 (09:33→22:04)
[2021-02-06] MEDS ORDERED: NS KCL 20MEQ 20 MEQ/1,000 ML BAG IV SCH (09:33)
[2021-02-06] MEDS ORDERED: ONDANSETRON 4 MG/2 ML VIAL IV PRN (09:33)
[2021-02-06] MEDS ORDERED: ACETAMINOPHEN 325 MG TABLET PO PRN (10:26)
[2021-02-06 10:30] LABS: Troponin I < 0.02 ng/mL (0.0-0.045)
--- NOTE | 2021-02-06 10:44 | RAD REPORT ---
EXAM DESCRIPTION: Tori Single View02/06/2021 1:46 am CLINICAL HISTORY: Vomiting COMPARISON: January 05, 2021 FINDINGS: The lungs appear clear of acute infiltrate. The heart is normal size IMPRESSION: No acute abnormalities displayed
[2021-02-06] MEDS: ASPIRIN EC 81 MG TAB PO SCH (11:14)
[2021-02-06] MEDS ORDERED: HOME MED 1 EA UNK (Insulin Glargine,Hum.Rec.Anlog [Basaglar Kwikpen U-100] 100 UNIT/ML Ins SQ SCH (14:00)
[2021-02-06] MEDS ORDERED: D50W 25 GM/50 ML SYRINGE IV PRN (14:17)
[2021-02-06] MEDS ORDERED: GLUCAGON 1 MG/VIAL IM PRN (14:17)
[2021-02-06] MEDS: NS KCL 20MEQ 20 MEQ/1,000 ML BAG IV SCH (15:00)
[2021-02-06] MEDS: INSULIN -REGULAR HUMAN 50 UNIT/0.5 ML ML SQ SCH ×2 (16:45→22:10)
[2021-02-06] MEDS ORDERED: SODIUM CHLORIDE 0.9% 10ML INJ IV PRN (18:07)
[2021-02-06] MEDS: cloNIDine HCL 0.1 MG TAB PO SCH (18:22)
--- NOTE | 2021-02-06 18:54 | RAD REPORT ---
EXAM DESCRIPTION: CT - Head Brain Wo Cont - 02/06/2021 6:36 pm CLINICAL HISTORY: Alteration of awareness/confusion COMPARISON: January 05, 2021 TECHNIQUE: Computed axial tomography of the head was obtained. IV contrast was not requested. All CT scans are performed using dose optimization technique as appropriate and may include automated exposure control or mA/KV adjustment according to patient size. FINDINGS: An intracranial bleed is not seen . The ventricles are normal in caliber. No extra-axial fluid collection is noted. 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 Mild to moderate low-density areas within periventricular, deep and subcortical white matter likely r epresent ischemic changes secondary to small vessel disease. Fluid within the sinuses/ mastoids is not seen. IMPRESSION: No acute intracranial abnormality is seen. If patient's symptoms persist MRI of the bra in would be recommended.
[2021-02-06] MEDS ORDERED: INSULIN GLARGINE 100 UNIT/ML SQ SCH (20:30)
[2021-02-06] MEDS: PANTOPRAZOLE 40 MG INJ IVP SCH (21:00)
[2021-02-06] MEDS ORDERED: FAMOTIDINE 20 MG TAB PO SCH (21:00)
[2021-02-06] MEDS ORDERED: METFORMIN ER 500 MG TAB PO SCH (21:00)
[2021-02-06] MEDS ORDERED: ATORVASTATIN 80 MG TAB PO SCH (21:00)
[2021-02-06 21:22] LABS: BUN Blood Urea Nitrogen 10 mg/dL (7-18); Bicarbonate 29 mmol/L (21-32); Glucose Level 240 mg/dL (74-106); Magnesium 1.8 mg/dL (1.8-2.4); Potassium 3.6 mmol/L (3.5-5.1); Sodium Level 130 mmol/L (136-145)
[2021-02-06] MEDS ORDERED: THIAMINE 200 MG/2 ML INJ ONE (21:50)
[2021-02-06] MEDS ORDERED: ENOXAPARIN 40 MG/0.4 ML SQ ONE (21:50)
[2021-02-06] MEDS: METOPROLOL TAR 50 MG TAB PO SCH (22:03)
[2021-02-06] MEDS: FAMOTIDINE 20 MG/2 ML VIAL IV SCH (22:05)
[2021-02-06] MEDS: ENOXAPARIN 40 MG/0.4 ML SQ SCH (22:12)
[2021-02-06] MEDS: THIAMINE 200 MG/2 ML INJ IVP SCH (22:13)
[2021-02-07] MEDS: cloNIDine HCL 0.1 MG TAB PO SCH ×2 (01:05→06:42)
[2021-02-07] MEDS: NS KCL 20MEQ 20 MEQ/1,000 ML BAG IV SCH (01:05)
[2021-02-07 06:02] LABS: Absolute Lymphocytes (CBC) 1.5 K/uL (0.7-4.9); Basophils % 1.3 % (0-1.3); Hematocrit 32.1 % (36.0-45.0); Lymphocytes % 24.4 % (15.3-44.8); MPV 7.7 fL (7.6-11.3); RBC Red Blood Cell Count 3.84 M/uL (3.86-4.86)
[2021-02-07 06:22] LABS: BUN Blood Urea Nitrogen 12 mg/dL (7-18); Bicarbonate 27 mmol/L (21-32); Glucose Level 201 mg/dL (74-106); Potassium 3.9 mmol/L (3.5-5.1); Sodium Level 130 mmol/L (136-145)
[2021-02-07] MEDS ORDERED: PANTOPRAZOLE 40MG TABLET PO SCH (06:30)
[2021-02-07] MEDS: INSULIN -REGULAR HUMAN 50 UNIT/0.5 ML ML SQ SCH (07:30)
[2021-02-07] MEDS ORDERED: IRBESARTAN 150 MG TAB PO SCH (09:00)
[2021-02-07] MEDS: DULOXETINE 30 MG CAP PO SCH ×2 (09:00→10:12)
[2021-02-07] MEDS: MAGNESIUM OXIDE 400 MG TAB PO SCH (09:00)
[2021-02-07] MEDS ORDERED: AMLODIPINE 10 MG TAB PO SCH (09:00)
[2021-02-07] MEDS: PANTOPRAZOLE 40 MG INJ IVP SCH (10:09)
[2021-02-07] MEDS: ASPIRIN EC 81 MG TAB PO SCH (10:11)
[2021-02-07] MEDS: METOPROLOL TAR 50 MG TAB PO SCH (10:12)
[2021-02-07] MEDS: ENOXAPARIN 40 MG/0.4 ML SQ SCH (10:13)
[2021-02-07] MEDS: THIAMINE 200 MG/2 ML INJ IVP SCH (10:16)
[2021-02-07] MEDS: FAMOTIDINE 20 MG/2 ML VIAL IV SCH (10:16)
[2021-02-07 10:36] VITALS: O2SAT 97
--- NOTE | 2021-02-07 11:05 | RAD REPORT ---
EXAM DESCRIPTION: CT - Abdomen Pelvis Wo Contrast - 02/06/2021 6:29 am CLINICAL HISTORY: The patient is 70 years old and is Female; nausea/vomiting TECHNIQUE: Axial computed tomography images of the abdomen and pelvis without intravenous contrast. Sagittal and coronal reformatted images were created and reviewed. This CT exam was performed usi ng one or more of the following dose reduction techniques: automated exposure control, adjustment o f the mA and/or kV according to patient size, and/or use of iterative reconstruction technique. COMPARISON: No relevant prior studies available. FINDINGS: LUNG BASES: Unremarkable. No mass. No consolidation. ABDOMEN: LIVER: The liver is enlarged and homogeneous. GALLBLADDER AND BILE DUCTS: No calcified stones. No ductal dilation. PANCREAS: Unremarkable. No ductal dilation. SPLEEN: Unremarkable. ADRENALS: Unremarkable. No mass. KIDNEYS AND URETERS: No obstructing stones. No hydronephrosis. No perinephric fluid. STOMACH AND BOWEL: The stomach is minimally distended with fluid and air. The small bowel is rela tively normal in caliber. Stool is present throughout colon. There is no mucosal thickening or eviden ce of bowel obstruction. PELVIS: APPENDIX: The appendix is normal in caliber without surrounding inflammation. BLADDER: The bladder is well distended. No stones. REPRODUCTIVE: The patient is status post hysterectomy. ABDOMEN and PELVIS: INTRAPERITONEAL SPACE: Unremarkable. No free air. No significant fluid collection. BONES/JOINTS: The bones are osteopenic with minimal degenerative change. There is no acute fractu re. SOFT TISSUES: The soft tissues are normal. VASCULATURE: Atherosclerosis of the vasculature is present. Calcification near the renal vessels on the right is noted. No abdominal aortic aneurysm. LYMPH NODES: Unremarkable. No enlarged lymph nodes. IMPRESSION: No acute findings on this noncontrasted CT of the abdomen and pelvis to explain the linda ent's symptoms. Electronically signed by: Bernie Casanova MD 02/06/2021 3:24 AM GIN POLE OPERATOR Due to temporary technical issues with the PACS/Fluency reporting system, reports are being signed by the in house radiologists without review as a courtesy to insure prompt reporting. The interpreting radiologist is fully responsible for the content of the report.
[2021-02-07] MEDS ORDERED: clonazePAM 0.5 MG TAB PO ONE (12:00)
[2021-02-07 13:04] VITALS: BP 147/65; TEMP 97.3
--- NOTE | 2021-02-07 20:50 | DS ---
Date of Discharge: 02/07/2021 Final Diagnoses: Nausea and hyponatremia. Secondary Diagnoses: Severe anxiety disorder, diabetes mellitus, coronary artery disease secondary t o diabetes, hypertension, high cholesterol, and osteoarthritis. Hospital Course: The patient who is an elderly lady who has severe anxiety and comes in the hospital for nausea. She has been worked up with her nausea symptoms for last 1 week. I explained to her th at more anxiety will create more nausea with acid production. Protonix b.i.d. and Pepcid b.i.d. are not helping at this point. She comes to ER panicking because she is not able to get an appointment w [facility] GI specialist. I explained to her the GI doctors do not work at this hospital on a daily basis, and fortunately, her nausea had recovered with IV Protonix. She is discharged home. While she was b eing discharged, she was having panic attack about her medications. I have stopped her metformin bec ause her magnesium is low. She is having nausea symptom. At this point, she is already on insulin a nd metformin was not necessary. I also stopped it because her magnesium can be a problem to induce a rrhythmia, which is why metformin had been stopped. The same way I stopped hydrochlorothiazide becau se of hyponatremia and hypomagnesemia. She will do without this 2 medications. I have went over shelby ry single medicine with the daughter and the purpose off it. I also added Klonopin 0.25 mg p.o. b.i. d. for her severe generalized anxiety disorder, even though it is a controlled substance for someone like her. It is necessary. RVD/MODL Voice ID: [id number] Report ID: [id number]
--- NOTE | 2021-02-08 11:12 | HP ---
Date of Admission: 02/06/2021 Chief Complaint: The patient was brought to the hospital by her for persistent nausea. History Of Present Illness: The patient is a very anxious lady who has a history of hypertension, hi story of stroke, and persistent anxiety and nausea. The patient has been nauseous for about a week a nd she says she is intolerable, she reports to emergency room. There is no other acute problem. She denies any chest pain, double vision, blurred vision, paralysis, tingling, or numbness. Denies any headaches. According to nurses, this afternoon she has become a little more confused and is not able to recognize the simplest stuff around her like food tray. Past Medical History: Hypertension, high cholesterol, anxiety, depression, panic attacks. She has c oronary artery disease because of diabetes mellitus. She is morbidly obese. High blood pressure, di abetic peripheral neuropathy. Surgical History: As recorded. , breast lump, hysterectomy, cholecystectomy, hemorrhoidect joann, PTCA and cardiac stents in 1992 and in 2019. Allergies: RECORDED. Social History: She has never smoked. Medications: Her list of medication includes amlodipine 10 mg daily, atorvastatin 80 mg daily, Lantu s 40 units in morning and 30 units at night, duloxetine 30 mg once a day, Diflucan 100 mg every other day. She asked for it when she had other antibiotic for UTI. Pepcid 20 mg p.o. b.i.d. as Protonix alone did not work for her symptoms until she gets further testing done, hydrochlorothiazide 25 mg on ce a day, irbesartan 300 mg once a day, metformin 1000 mg p.o. b.i.d., metoprolol 100 mg p.o. b.i.d., pantoprazole 40 mg once a day. Physical Examination: Vital Signs: The patient's blood pressure is 130/70. Chest: Clear. Heart: Regular. Abdomen: No guarding, no rebound, no rigidity. Neurological: The patient seems to be at baseline to me. Continues to be severe and anxious. Voided about everything and reports to emergency room just because she is nauseous. She is supposed to go to a GI doctor. She is not able to get to a GI doctor on her time like next week. They are no t able to give her appointment next week. She ended up to emergency room. Diagnostic Data: On lab examination, sodium is 125, potassium is slightly low at 3.1. Otherwise, th e lab is unremarkable. CT of brain is negative. I ordered this afternoon. Assessment And Plan: 1.Persistent nausea. overedger the IV to IV Protonix 40 mg b.i.d. Consult Gastroenterology on an outpatient basis. She does not have any inpatient diagnosis. 2.Confusion, disorientation, possibly is because of her mainly being so extremely anxious, so I will start her on Klonopin 0.25 mg q.h.s. I will start her on thiamine [address] of brain is negative, and I do not suspect any neurological problems at this point. I also do not suspect any ca rdiological issues given her active nausea as her EKG is normal. Cardiac enzymes are negative and sh e has no coronary symptoms. RVD/MODL Voice ID: [id number]
== END 2021-02-07 13:31 | disposition home or self-care (01) | DRG 641 ==
LOC: ER 00:49 → ERHOLD 05:19 → 4TH 09:00
PROVIDERS: ADMIT Internal Medicine; ATTEND Internal Medicine
DX: E87.1 Hypo-osmolality and hyponatremia (principal); I10 Essential (primary) hypertension; E83.42 Hypomagnesemia; E87.6 Hypokalemia; I25.10 Atherosclerotic heart disease of native coronary artery without angina pectoris; M19.90 Unspecified osteoarthritis, unspecified site; F41.9 Anxiety disorder, unspecified; E10.42 Type 1 diabetes mellitus with diabetic polyneuropathy; E10.65 Type 1 diabetes mellitus with hyperglycemia; Z88.5 Allergy status to narcotic agent; Z88.8 Allergy status to other drugs, medicaments and biological substances; Z91.048 Other nonmedicinal substance allergy status; Z79.899 Other long term (current) drug therapy; Z95.5 Presence of coronary angioplasty implant and graft; Z90.710 Acquired absence of both cervix and uterus; Z90.49 Acquired absence of other specified parts of digestive tract; Z86.73 Personal history of transient ischemic attack (TIA), and cerebral infarction without residual deficits; Z68.38 Body mass index [BMI] 38.0-38.9, adult; Z79.4 Long term (current) use of insulin; Z20.822 Contact with and (suspected) exposure to COVID-19
CPT/HCPCS: 36415; 70450; 71045; 74176; 80048; 80076; 81003; 81015; 82565; 82947; 83690; 83735; 83880; 83930; 83935; 84132; 84300; 84484; 84550; 85025; 85610; 87086; 87088; 93005; 96361; 96374; 96375; 99285; C9113; J1650; J2405; J3411; J3475; J3480; J7030; U0003

== ENCOUNTER 2021-02-23 16:33 | Inpatient (IN) | payer OTHER ==
--- OUTSIDE RECORDS SUMMARY | 2021-02-23 18:23 | XMS REPORT | Continuity of Care Document ---
:1950 Author Organization [facility] t Address [address] [place] [address] Care Team Providers Name Role Phone LITO Attending Clinician Unavailable FELIBERTO MILLER Attending Clinician Unavailable FELIBERTO MILLER Admitting Clinician Unavailable Payers Payer Name Policy Type Policy Number Effective Date Expiration Date S ledy MEDICARE A B [id number] 2013 00:00:00 GENERIC MEDICARE [id number] 2020 SUPPLEMENT 00:00:00 Problems This patient has no known problems. Allergies, Adverse Reactions, Alerts Allergy Allergy Status Severity Reaction(s) Onset Inactive Treating Comm ents Source Name Type Date Date Clinician NO KNOWN Allergy Active [facility] Medications This patient has no known medications. [...] ID 2021-01-05 2021-01-12 Inpatient ER SHARATH MORSE [facility] Neuro ICU [id number] [facility] 18:51:00 12:41:00 Results Test Description Test Time Test Comments Results Result Comments Source POCT-GLUCOSE METER 2021-01-12 08:55:56 Test Item Value Reference Range Interpretation Comme nts POC-GLUCOSE METER (BEAKER) 290 mg/dL 70-110 H : TESTED AT [facility] 6720 MP (test code = 1538) [place], [address]: Knot Cutter/Techni kenzie ID = [id number] for Nadiya Alonso [id number] 05:19:28 Test Item Value Reference Range Interpretation Comments MAGNESIUM (BEAKER) (test code = 1.6 mg/dL 1.6-2.6 627) Knot Cutter ID - CONOR [id number] 05:19:28 Test Item Value Reference Range Interpretation Comments PHOSPHORUS (BEAKER) (test code = 4.0 mg/dL 2.3-4.7 604) Knot Cutter ID - CONOR LBASIC METABOLIC [id number] 05:19:27 Test Item Value Reference Range Interpretation [...] S NOT APPLICABLE FOR DIALYSIS PATIEN TS. Knot Cutter ID - CONOR LCBC W/PLT COUNT & AUTO [id number] 05:09:03 Test Item Value Reference Range Interpretation [...] PERCENT (BEAKER) (test code = 2801) POCT-GLUCOSE [id number] 23:33:30 Test Item Value Reference Range Interpretation Comments POC-GLUCOSE METER 118 mg/dL 70-110 H : TESTED A T [facility] 6720 (BEAKER) (test code = [facility], 1538) [address]: Knot Cutter/Techni kenzie ID = [id number] for Kenia Stover POCT-GLUCOSE [id number] 16:42:37 Test Item Value Reference Range Interpretation Comments POC-GLUCOSE METER 179 mg/dL 70-110 H : TESTED A T [facility] 6720 (BEAKER) (test code = [facility], 1538) [address]: Knot Cutter/Techni kenzie ID = [id number] for An rayshawn, Nadiya POCT-GLUCOSE [id number] 12:48:21 Test Item Value Reference Range Interpretation Comments POC-GLUCOSE METER 414 mg/dL 70-110 HH : TESTED A T [facility] 6720 (BEAKER) (test code = [facility], 1538) [address]: Knot Cutter/Techni kenzie ID = [id number] for An rayshawn, Nadiya POCT-GLUCOSE [id number] 07:23:54 Test Item Value Reference Range Interpretation Comments POC-GLUCOSE METER 307 mg/dL 70-110 H : TESTED A T [facility] 6720 (BEAKER) (test code = [facility], 1538) [address]: Knot Cutter/Techni kenzie ID = [id number] for Sae field (contract)Ivone [id number] 05:34:22 Test Item Value Reference Range Interpretation Comments MAGNESIUM (BEAKER) (test code = 1.7 mg/dL 1.6-2.6 627) Knot Cutter ID - TRISH [id number] 05:34:22 Test Item Value Reference Range Interpretation Comments PHOSPHORUS (BEAKER) (test code = 3.6 mg/dL 2.3-4.7 604) Knot Cutter ID - TRISH MBASIC METABOLIC [id number] 05:34:21 Test Item Value Reference Range Interpretation [...] S NOT APPLICABLE FOR DIALYSIS PATIEN TS. Knot Cutter ID - TRISH MCBC W/PLT COUNT & AUTO [id number] 04:48:58 Test Item Value Reference Range Interpretation [...] PERCENT (BEAKER) (test code = 2801) POCT-GLUCOSE [id number] 21:55:36 Test Item Value Reference Range Interpretation Comments POC-GLUCOSE METER 308 mg/dL 70-110 H : TESTED A T [facility] 6720 (BEAKER) (test code = [facility], [facility]8) [address]: Knot Cutter/Techni kenzie ID = [id number] for Fang Tracey POCT-GLUCOSE [id number] 16:47:18 Test Item Value Reference Range Interpretation Comments POC-GLUCOSE METER 349 mg/dL 70-110 H : TESTED A T [facility] 6720 (BEAKER) (test code = [facility], [facility]8) [address]: Knot Cutter/Techni kenzie ID = [id number] for MIKE COLMENARESL POCT-GLUCOSE [id number] 12:07:39 Test Item Value Reference Range Interpretation Comments POC-GLUCOSE METER 429 mg/dL 70-110 HH : TESTED A T [facility] 6720 (BEAKER) (test code = [facility], 1538) [address]: Knot Cutter/Techni kenzie ID = [id number] for CAMI MATHUR POCT-GLUCOSE [id number] 09:13:52 Test Item Value Reference Range Interpretation Comments POC-GLUCOSE METER 357 mg/dL 70-110 H : TESTED A T [facility] 6720 (BEAKER) (test code = [facility], 1538) 39[address]: Knot Cutter/Techni kenzie ID = [id number] for CAMI MATHUR [id number] 08:01:34 Test Item Value Reference Range Interpretation Comments PHOSPHORUS (BEAKER) (test code = 3.4 mg/dL 2.3-4.7 604) Knot Cutter ID - CONOR [id number] 07:20:33 Test Item Value Reference Range Interpretation Comments MAGNESIUM (BEAKER) (test code = 1.9 mg/dL 1.6-2.6 627) Knot Cutter ID - CONOR LBASIC METABOLIC [id number] 07:20:32 Test Item Value Reference Range Interpretation [...] S NOT APPLICABLE FOR DIALYSIS PATIEN TS. Knot Cutter ID - CONOR LCBC W/PLT COUNT & AUTO [id number] 07:02:47 Test Item Value Reference Range Interpretation [...] PERCENT (BEAKER) (test code = 2801) POCT-GLUCOSE [id number] 00:19:20 Test Item Value Reference Range Interpretation Comments POC-GLUCOSE METER 390 mg/dL 70-110 H : TESTED Julissa Mckeon [facility] 6720 (BEAKER) (test code = [facility] [place], 1538) [address]: Knot Cutter/Techni kenzie ID = [id number] for Fang Tracey POCT-GLUCOSE [id number] 18:02:03 Test Item Value Reference Range Interpretation Comments POC-GLUCOSE METER 390 mg/dL 70-110 H : TESTED A T [facility] 6720 (RADHA) (test code = [facility], 1538) [address]: Knot Cutter/Techni kenzie ID = [id number] for CAMI MATHUR POCT-GLUCOSE [id number] 13:25:11 Test Item Value Reference Range Interpretation Comments POC-GLUCOSE METER 449 mg/dL 70-110 HH : Notified RN/MD: (RADHA) (test code = TESTED AT [facility] 6720 1538) [facility], [address]: Knot Cutter/Techni kenzie ID = [id number] for CAMI MATHUR POCT-GLUCOSE [id number] 08:48:27 Test Item Value Reference Range Interpretation Comments POC-GLUCOSE METER 347 mg/dL 70-110 H : Notified RN/MD: (RADHA) (test code = TESTED AT [place] [address] 1538) [facility], [address]: Knot Cutter/Techni kenzie ID = [id number] for CAMI MATHUR CBC W/PLT COUNT & AUTO [id number] 07:45:14 Test Item Value Reference Range Interpretation [...] (BEAKER) (test code = 2801) BASIC METABOLIC [id number] 07:42:41 Test Item Value Reference Range Interpretation [...] S NOT APPLICABLE FOR DIALYSIS PATIEN TS. Knot Cutter ID - RAÚL [id number] 07:42:40 Test Item Value Reference Range Interpretation Comments MAGNESIUM (BEAKER) 1.7 mg/dL 1.6-2.6 Specimen slightly (test code = 627) hemolyzed Knot Cutter ID - RAÚL [id number] 07:42:40 Test Item Value Reference Range Interpretation Comments PHOSPHORUS (BEAKER) 3.6 mg/dL 2.3-4.7 Specimen slightly (test code = 604) hemolyzed Knot Cutter ID Carmenza OLSEN WPOCT-GLUCOSE [id number] 21:45:21 Test Item Value Reference Range Interpretation Comments POC-GLUCOSE METER 331 mg/dL 70-110 H : TESTED A T [facility] 6720 (BEAKER) (test code = [facility], 153) [address]: Knot Cutter/Techni kenzie ID = [id number] for Homar Russo POCT-GLUCOSE [id number] 17:30:00 Test Item Value Reference Range Interpretation Comments POC-GLUCOSE METER 299 mg/dL 70-110 H : TESTED A T [facility] 6720 (BEAKER) (test code = [facility], 153) [address]: Knot Cutter/Techni kenzie ID = [id number] for An derson, Nadiya POCT-GLUCOSE [id number] 13:29:42 Test Item Value Reference Range Interpretation Comments POC-GLUCOSE METER 352 mg/dL 70-110 H : TESTED A T [facility] 6720 (BEAKER) (test code = [facility], 1538) [address]: Knot Cutter/Techni kenzie ID = [id number] for Maxine Mixon POCT-GLUCOSE [id number] 08:55:09 Test Item Value Reference Range Interpretation Comments POC-GLUCOSE METER 304 mg/dL 70-110 H : TESTED A T [facility] 6720 (BEAKER) (test code = [facility], 153) [address]: Knot Cutter/Techni kenzie ID = [id number] for An derson, Nadiya CBC W/PLT COUNT & AUTO [id number] 07:29:43 Test Item Value Reference Range Interpretation [...] (BEAKER) (test code = 2801) BASIC METABOLIC [id number] 05:34:55 Test Item Value Reference Range Interpretation [...] S NOT APPLICABLE FOR DIALYSIS PATIEN TS. Knot Cutter ID - RAÚL [id number] 05:34:54 Test Item Value Reference Range Interpretation Comments MAGNESIUM (BEAKER) 1.5 mg/dL 1.6-2.6 L Specimen slightly (test code = 627) hemolyzed Knot Cutter ID - RAÚL [id number] 05:34:54 Test Item Value Reference Range Interpretation Comments PHOSPHORUS (BEAKER) 3.2 mg/dL 2.3-4.7 Specimen slightly (test code = 604) hemolyzed Knot Cutter ID Carmenza OLSEN WSARS-COV2/RT-PCR ([facility])2021-01-08 00:23:58 Test Item Value Reference Range Interpretation Comments SARS-COV2/RT-PCR (test Negative Not Detected, Negative, code = 5514377) See external report for linked test SARS-COV-2 PERFORMING LAB [facility] ROSENDO (test code = 6990106) Negative result for this test determines that [...] 564(g) of the Act.Fact Sheet for Healthcare Providers:https://www.[employer]/sites/default/files/product/documents/Fact_Shee g_QO_Jhltolsas_Wutv_LMBU-WmI-0.pdfFact Sheet for Healthcare Patients:https://www.[employer]/sites/default/files/product/ documents/Dyjv_Wjvzn_Pmfvlllf_Cfvf_UORJ-SfB-2.pdfPerforming Laboratory:[facility], [place] [address]DZBC-UTARDCN METER 2021-01-07 20:55:22 Test Item Value Reference Range Interpretation Comments POC-GLUCOSE METER 307 mg/dL 70-110 H : TESTED A T [facility] 6720 (RADHA) (test code = [facility] [place], 1538) [address]: Knot Cutter/Techni kenzie ID = [id number] for Holland hamlin (contract)Geraldo POCT-GLUCOSE [id number] 18:16:42 Test Item Value Reference Range Interpretation Comments POC-GLUCOSE METER 343 mg/dL 70-110 H : TESTED A T [facility] 6720 (BEAKER) (test code = [facility], 1538) [address]: Knot Cutter/Techni kenzie ID = [id number] for BOY FISCHER POCT-GLUCOSE [id number] 11:38:09 Test Item Value Reference Range Interpretation Comments POC-GLUCOSE METER 307 mg/dL 70-110 H : TESTED A T [facility] 6720 (BEAKER) (test code [facility], = 1538) [address]: Knot Cutter/Techni kenzie ID = [id number] for Kostas-Lefty s Marie POCT-GLUCOSE [id number] 08:02:28 Test Item Value Reference Range Interpretation Comments POC-GLUCOSE METER 237 mg/dL 70-110 H : TESTED A T [facility] 6720 (BEAKER) (test code [facility], = 1538) [address]: Knot Cutter/Techni kenzie ID = [id number] for Kostas-Marshallga s, Marie [id number] 03:44:24 Test Item Value Reference Range Interpretation Comments PHOSPHORUS (BEAKER) (test code = 3.9 mg/dL 2.3-4.7 604) Knot Cutter ID - TRISH MBASIC METABOLIC [id number] 03:44:23 Test Item Value Reference Range Interpretation [...] S NOT APPLICABLE FOR DIALYSIS PATIEN TS. Knot Cutter ID - TRISH [id number] 03:44:23 Test Item Value Reference Range Interpretation Comments MAGNESIUM (BEAKER) (test code = 1.7 mg/dL 1.6-2.6 627) Knot Cutter ID - TRISH MCBC W/PLT COUNT & AUTO [id number] 03:27:18 Test Item Value Reference Range Interpretation [...] PERCENT (BEAKER) (test code = 2801) POCT-GLUCOSE [id number] 03:23:46 Test Item Value Reference Range Interpretation Comments POC-GLUCOSE METER 180 mg/dL 70-110 H : TESTED A T [facility] 6720 (BEAKER) (test code = [facility], 1538) [address]: Knot Cutter/Techni kenzie ID = [id number] for NICOLE POWERS POCT-GLUCOSE [id number] 22:13:28 Test Item Value Reference Range Interpretation Comments POC-GLUCOSE METER 187 mg/dL 70-110 H : TESTED A T [facility] 6720 (BEAKER) (test code = [facility], 1538) [address]: Knot Cutter/Techni kenzie ID = [id number] for Oneyda Salas MR, BRAIN, WITHOUT [id number] 20:05:00Reason for exam:->Ischemic Stroke EvaluationHUNTINGTON [facility]ITALName: ELANABAKARI : 1950 Sex: FFINAL REPORT [...] Date/Time: 01/06/2021 20:05:22 URINALYSIS W/ REFLEX URINE [id number] 14:32:30 Test Item Value Reference Range Interpretation [...] = 1521) SOURCE(BEAKER) (test code = 2795) Knot Cutter ID - [auto]Knot Cutter ID - [id number] 13:15:40 Test Item Value Reference Range Interpretation Comments RPR SCREEN (BEAKER) (test code = Nonreactive Nonreactive 420) POCT-GLUCOSE [id number] 12:47:57 Test Item Value Reference Range Interpretation Comments POC-GLUCOSE METER 244 mg/dL 70-110 H : TESTED A T [facility] 6720 (BEAKER) (test code = [facility] Chung [facility], 1538) [address]: Knot Cutter/Techni kenzie ID = [id number] for Ar duanerong Latesa POCT-GLUCOSE [id number] 07:15:12 Test Item Value Reference Range Interpretation Comments POC-GLUCOSE METER 142 mg/dL 70-110 H : TESTED A T [facility] 6720 (BEAKER) (test code = [facility], 1538) [address]: Knot Cutter/Techni kenzie ID = [id number] for Inge Booker CT, BRAIN, WITHOUT [id number] 07:11:00Unlisted Reason for Exam - Click Yes and Enter Reason Below->No [facility] : 1950 Sex: FFINAL [...] MDReport Verified Date/Time: 01/06/2021 07:11:22 Reading Location: [address] Neuro Reading Room [facility] [id number] 07:11:00Unlisted Reason for Exam - Click Yes and Enter Reason Below->No [facility] : 1950 Sex: FFINAL [...] MDReport Verified Date/Time: 01/06/2021 07:11:22 Reading Location: [facility] B1 C013V Neuro Reading Room CT, CAROTID, [id number] 07:11:00Unlisted Reason for Exam - Click Yes and Enter Reason Below->No [facility] : 1950 Sex: [...] WESLEYeport Verified Date/Time: 01/06/2021 07:11:22 Reading Location: [facility] C013V Neuro Reading Room CALCIUM, [id number] 06:41:59 Test Item Value Reference Range Interpretation Comments CALCIUM IONIZED (BEAKER) (test 1.14 mmol/L 1.12-1.27 code = 698) PH, BLOOD (BEAKER) (test code = 7.43 1810) BASIC METABOLIC [id number] 05:42:30 Test Item Value Reference Range Interpretation [...] S NOT APPLICABLE FOR DIALYSIS PATIEN TS. Knot Cutter ID - TRISH MLIPID [id number] 05:42:30 Test Item Value Reference Range Interpretation [...] Borderline 130-159 High 160-189 Very High >=190 Knot Cutter ID - TRISH [id number] 05:42:29 Test Item Value Reference Range Interpretation Comments MAGNESIUM (BEAKER) 2.4 mg/dL 1.6-2.6 Specimen slightly (test code = 627) hemolyzed Knot Cutter ID - TRISH [id number] 05:42:29 Test Item Value Reference Range Interpretation Comments PHOSPHORUS (BEAKER) 4.5 mg/dL 2.3-4.7 Specimen slightly (test code = 604) hemolyzed Knot Cutter ID - TRISH MCBC W/PLT COUNT & AUTO [id number] 05:01:08 Test Item Value Reference Range Interpretation [...] 2801) RAD, SHOULDER, COMPLETE (MIN 2 VIEWS), [id number] 03:48:00Reason for exam:- >R shoulder fracture [facility] : 1950 Sex: FFINAL [...] Specimen slightly (test code = 627) hemolyzed Knot Cutter ID - TRISH [id number] 01:47:26 Test Item Value Reference Range Interpretation Comments POTASSIUM (BEAKER) 4.2 meq/L 3.5-5.1 Specimen slightly (test code = 379) hemolyzed Knot Cutter ID - TRISH MPOCT-GLUCOSE [id number] 22:16:03 Test Item Value Reference Range Interpretation Comments POC-GLUCOSE METER 215 mg/dL 70-110 H : TESTED A T [facility] 6720 (BEAKER) (test code = [facility] [place], 1538) [address]: Knot Cutter/Techni kenzie ID = [id number] for Andrei adsh Inge TSH/FREE T4 IF [id number] 20:35:33 Test Item Value Reference Range Interpretation Comments THYROID STIMULATING HORMONE 1.104 uIU/mL 0.350-4.940 (BEAKER) (test code = 772) Knot Cutter ID - ADMINVITAMIN B12 AND [id number] 20:35:33 Test Item Value Reference Range Interpretation Comments VITAMIN B12 756 pg/mL 213-816 (BEAKER) (test code = 774) FOLATE (BEAKER) 13.50 ng/mL See_Comment [Automated message] (test code = 362) The system which generated this result transmitted ref erence range: >=7.00. The reference range was not used to interpr et this result as normal/abnormal . Knot Cutter ID - ADMINHEMOGLOBIN [id number] 20:20:55 Test Item Value Reference Range Interpretation Comments HEMOGLOBIN A1C (BEAKER) (test code = 9.0 % 4.3-6.1 H 368) HIGH SENSITIVITY TROPONIN [id number] 20:05:30 Test Item Value Reference Range Interpretation Comments HIGH SENSITIVITY < pg/ml See_Comment [Automated message] TROPONIN I (test code = The system which [id number]) generated this result transmitted ref erence range: <=17. Th e reference range was not used to interpr et this result as normal/abnormal . Knot Cutter ID - ADMINThe FIELD SERVICE TECH STAT High Sensitivity Troponin-I results should be used in conjunction with other diagnostic information such as ECG, clinical observations and information, and patientsymptoms to aid in the diagnosis of HI. [id number] 20:01:52 Test Item Value Reference Range Interpretation Comments PHOSPHORUS (BEAKER) (test code = 7.2 mg/dL 2.3-4.7 H 604) Knot Cutter ID - [id number] 20:01:51 Test Item Value Reference Range Interpretation Comments MAGNESIUM (BEAKER) (test code = 1.1 mg/dL 1.6-2.6 L 627) Knot Cutter ID - ADMINBASIC METABOLIC [id number] 20:01:50 Test Item Value Reference Range Interpretation [...] S NOT APPLICABLE FOR DIALYSIS PATIEN TS. Knot Cutter ID - ADMINCBC W/PLT COUNT & AUTO [id number] 19:37:16 Test Item Value Reference Range Interpretation [...]
[2021-02-23] MEDS ORDERED: ACETAMINOPHEN 325 MG TABLET PO PRN (20:38)
[2021-02-23] MEDS ORDERED: GLUCAGON 1 MG/VIAL IM PRN (20:38)
[2021-02-23] MEDS ORDERED: D50W 25 GM/50 ML SYRINGE IV PRN (20:38)
[2021-02-23] MEDS ORDERED: ONDANSETRON 4 MG/2 ML VIAL IV PRN (20:38)
[2021-02-23] MEDS ORDERED: POLYETHYL GLY 3350 17 GM/DOSE PO PRN (20:38)
[2021-02-23] MEDS ORDERED: ALBUTEROL 2.5 MG/3 ML NEB SOL NEB PRN (20:38)
[2021-02-23] MEDS: INSULIN -REGULAR HUMAN 50 UNIT/0.5 ML ML SQ SCH (21:00)
[2021-02-23 21:25] LABS: Absolute Lymphocytes (CBC) 1.9 K/uL (0.7-4.9); Basophils % 0.9 % (0-1.3); Hematocrit 34.6 % (36.0-45.0); Lymphocytes % 27.2 % (15.3-44.8); MPV 7.2 fL (7.6-11.3); RBC Red Blood Cell Count 4.07 M/uL (3.86-4.86)
[2021-02-23 21:34] LABS: Protime INR 1.02
[2021-02-23 22:05] LABS: ALT/SGPT 33 U/L (12-78); AST/SGOT 18 U/L (15-37); Albumin 3.1 g/dL (3.4-5.0); Alkaline Phosphatase 67 U/L (45-117); BUN Blood Urea Nitrogen 13 mg/dL (7-18); Bicarbonate 30 mmol/L (21-32); Bilirubin Direct 0.2 mg/dL (0-0.2); Bilirubin Total 0.5 mg/dL (0.2-1.0); Glucose Level 143 mg/dL (74-106); Magnesium 1.9 mg/dL (1.8-2.4); Phosphorus 3.4 mg/dL (2.5-4.9); Potassium 3.6 mmol/L (3.5-5.1); Sodium Level 135 mmol/L (136-145)
[2021-02-23] MEDS: NACHLORIDE 0.45% 1,000 ML IV SCH (23:09)
[2021-02-23] MEDS: DIPHENHYDRAMINE 25 MG TAB/CAP PO PRN (23:22)
[2021-02-24] MEDS ORDERED: ZIPRASIDONE MESYLA 20 MG/VIAL IM ONE ×2 (01:33→01:36)
[2021-02-24] MEDS ORDERED: WATER FOR INJ,STERILE 10 ML IM PRN (01:33)
[2021-02-24] MEDS ORDERED: WATER FOR INJ,STERILE 10 ML ONE (01:36)
[2021-02-24] MEDS ORDERED: ALBUTEROL 2.5 MG/3 ML NEB SOL NEB SCH (02:00)
[2021-02-24] MEDS ORDERED: IPRATROPIUM BROM 0.5MG/2.5ML NEB SCH (02:00)
[2021-02-24 02:23] LABS: Basophils % 0.7 % (0-1.3); Hematocrit 36.9 % (36.0-45.0); Lymphocytes % 33.5 % (15.3-44.8); MPV 7.3 fL (7.6-11.3); RBC Red Blood Cell Count 4.34 M/uL (3.86-4.86)
[2021-02-24 02:43] LABS: BUN Blood Urea Nitrogen 12 mg/dL (7-18); Bicarbonate 28 mmol/L (21-32); Glucose Level 118 mg/dL (74-106); Potassium 3.5 mmol/L (3.5-5.1); Sodium Level 136 mmol/L (136-145)
[2021-02-24] MEDS ORDERED: CLOPIDOGREL 75 MG TABLET PO ONE (03:06)
[2021-02-24] MEDS ORDERED: ASPIRIN 81 MG CHEWABLE TABLET PO ONE (03:17)
[2021-02-24] MEDS: ENOXAPARIN 40 MG/0.4 ML SQ SCH (03:48)
[2021-02-24 05:25] LABS: Urine Appearance CLOUDY (Clear); Urine Bilirubin NEGATIVE (Negative); Urine Blood NEGATIVE (Negative); Urine Color YELLOW (Yellow); Urine Glucose NEGATIVE (Negative); Urine Protein NEGATIVE (Negative); Urine Specific Gravity 1.015 (1.005-1.030); Urine Urobilinogen 0.2 mg/dL (0.2-1.0); Urine pH 6.5 (5.0-7.0)
[2021-02-24 05:29] LABS: Urine Microscopic Reflex ORDER UMIC
[2021-02-24 05:50] LABS: Urine Bacteria >50 /HPF (<20)
[2021-02-24 05:51] LABS: Urine RBC <5 /HPF (NONE SEEN); Urine Urothelial Cells <5 /HPF (NONE SEEN)
[2021-02-24] MEDS ORDERED: DOCUSATE NA 100 MG CAP PO PRN (07:00)
[2021-02-24] MEDS ORDERED: KCL 20 MEQ/100 mL IVPB 20 MEQ/100 ML BAG IV SCH (07:00)
[2021-02-24] MEDS: INSULIN -REGULAR HUMAN 50 UNIT/0.5 ML ML SQ SCH ×4 (07:30→21:00)
[2021-02-24] MEDS ORDERED: ALBUTEROL 2.5 MG/3 ML NEB SOL NEB PRN (07:33)
[2021-02-24] MEDS ORDERED: IPRATROPIUM BROM 0.5MG/2.5ML NEB PRN (07:33)
[2021-02-24] MEDS ORDERED: INSULIN GLARGINE 100 UNIT/ML SQ SCH ×2 (08:00→20:30)
[2021-02-24] MEDS ORDERED: LORazepam 2 MG/ML VIAL IV ONE (08:08)
--- NOTE | 2021-02-24 08:21 | RAD REPORT ---
EXAM DESCRIPTION: RAD - Chest Single View - 02/23/2021 10:37 pm CLINICAL HISTORY: ams, cva, r/o seizures Chest pain. COMPARISON: Chest Single View dated 02/06/2021; Chest Single View dated 01/05/2021; Chest Single View dated 10/22/2020; Chest Single View dated 10/20/2020 FINDINGS: Portable technique limits examination quality. The lungs are grossly clear. The heart is normal in size. No displaced fractures. IMPRESSION: No acute intrathoracic process suspected.
--- NOTE | 2021-02-24 08:59 | RAD REPORT ---
EXAM DESCRIPTION: MRI - Brain Wo Cont - 02/24/2021 8:25 am CLINICAL HISTORY: AMS, CVA, aphasia, atypical seizures r/o COMPARISON: Ct Stroke Brain Wo Cont dated 02/24/2021 TECHNIQUE: Multi-sequence, multiplanar MR imaging of the brain was performed without contrast. FINDINGS: No intracranial hemorrhage, hydrocephalus or extra-axial fluid collections.Mild generalize d brain atrophy is present with mild periventricular and deep white matter chronic microvascular isch emic changes. No edema or shift of midline structures. No findings to suspect brain mass.Old left per iventricular infarction is present. DWI is negative for acute CVA. Midline structures are normally formed. Mastoid air cells and paranasal sinuses are clear. IMPRESSION: Negative for acute CVA or other acute intracranial abnormality.
[2021-02-24] MEDS: FAMOTIDINE 20 MG TAB PO SCH ×2 (09:00→21:53)
[2021-02-24] MEDS ORDERED: ASPIRIN 81 MG CHEWABLE TABLET PO SCH (09:00)
[2021-02-24] MEDS ORDERED: POLYETHYL GLY 3350 17 GM/DOSE PO PRN (09:00)
[2021-02-24] MEDS ORDERED: INFLUENZA VACCINE (for 6+ mo) 0.5 ML DOSE IMVAC ONE (09:00)
[2021-02-24] MEDS: METOPROLOL TAR 50 MG TAB PO SCH ×2 (10:05→21:53)
[2021-02-24] MEDS: clonazePAM 0.5 MG TAB PO SCH ×2 (10:05→21:53)
[2021-02-24] MEDS: DULOXETINE 30 MG CAP PO SCH (10:05)
[2021-02-24] MEDS: IRBESARTAN 150 MG TAB PO SCH (10:54)
[2021-02-24] MEDS: levETIRAcetam 500 MG TAB PO SCH ×2 (13:39→21:54)
--- NOTE | 2021-02-24 13:42 | RAD REPORT ---
EXAM DESCRIPTION: Abdomen Pelvis Wo Contrast 02/23/2021 10:24 PM SITE CONTROLLER CLINICAL HISTORY: 70 years, Female, difficulty voiding and having bm COMPARISON: 02/06/2021 TECHNIQUE: Multiple transaxial tomograms of the abdomen and pelvis were performed from the lung base s to the symphysis pubis 5 mm slice thickness at 5 mm interval reconstruction, without administration of IV and oral contrast. Multiplanar reformats in the sagittal and coronal plane were generated and reviewed. This exam was performed according to our departmental dose-optimization protocol, which includes auto mated exposure control, adjustment of the mA and/or kV according to patient size and/or use of iterat caesar reconstruction technique. FINDINGS: The lack of IV and oral contrast limits evaluation of solid organs, subtle lesions cannot be exclud ed. The lung bases demonstrate to be clear. Minimal coronary artery calcific lesions. Grossly the unopacified liver, pancreas, spleen and adrenal glands demonstrate to be within normal li mits, no significant focal lesions were identified. Surgical clips within the gallbladder fossa cor respond to previous cholecystectomy. The kidneys demonstrate grossly unremarkable. There is no evidence for nephrolithiasis and/or hydro nephrosis. Again there is a rim calcified structure within the right renal hilum corresponding to a r im calcified aneurysm measuring 1.1 and 0.8 cm on image 37. The ureters displays normal appearance with normal caliber, no hydroureter was seen. Grossly the unopacified stomach, small bowel and large bowel demonstrate to be within normal limits. There is no evidence for bowel dilatation and/or free air. The appendix is normal. There is fecal res idue within the rectum. The urinary bladder demonstrate to be within normal limits. The uterus is absent. There are no adnexa l masses The aorta demonstrate minimal atherosclerotic disease. There is no retroperitoneal lymphad enopathy. There is no evidence for ascites. The bone windows demonstrate grade 1 degenerative spond ylolisthesis at L4/L5. IMPRESSION: No evidence for nephrolithiasis and/or hydronephrosis. 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 Status post cholecystectomy and hysterectomy. Grade 1 degenerative spondylolisthesis at L4/L5. No significant interval change. Electronically signed by: Carmelo Rojas MD 02/23/2021 10:27 PM SITE CONTROLLER Due to temporary technical issues with the PACS/Fluency reporting system, reports are being signed by the in house radiologists without review as a courtesy to insure prompt reporting. The interpreting radiologist is fully responsible for the content of the report.
--- NOTE | 2021-02-24 14:43 | RAD REPORT ---
EXAM DESCRIPTION: ADDENDUM #1 THIS REPORT CONTAINS FINDINGS THAT MAY BE CRITICAL TO PATIENT CARE: Called, telephoned, verbal repo rt was given oral to Del Dutton registered nurse at 3:02 AM PROJECT CONSTRUCTION MANAGER on 02/24/2021. Electronically signed by: Carmelo Rojas MD 02/24/2021 3:07 AM PROJECT CONSTRUCTION MANAGER End of Addendum EXAM DESCRIPTION: Ct Stroke Brain Wo Cont 02/24/2021 2:52 AM PROJECT CONSTRUCTION MANAGER CLINICAL HISTORY: 70 years, Female, slurred speech, right facial drooping COMPARISON: 02/06/2021. FINDINGS: Multiple transaxial tomograms of the brain were obtained from the base of the skull to the vertex without contrast. 2-D multiplanar reformats and the coronal and sagittal plane were performed and reviewed. This exam was performed according to our departmental dose-optimization protocol, which includes auto mated exposure control, adjustment of the mA and/or kV according to patient size and/or use of iterat caesar reconstruction technique. Brain parenchyma demonstrate mild prominence of the sulci and gyri are corresponding to mild cerebral and cerebellar atrophy. There is minimal periventricular white matter changes of microvascular ische hemanth. Again there is a focus of hypodensity within the left basal ganglia-caudate head corresponding t o an old lacunar infarct. There is no midline shift and/or mass effect. There is no evidence for acut e intracranial hemorrhage. Lateral ventricles and cisterns displace normal appearance. No intra o r extra axial fluid collections were seen. The calvarium is intact with no evidence for fracture. The visualized portions of the paranasal sinuses and orbits demonstrate to be clear. IMPRESSION: No evidence for acute intracranial hemorrhage. 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 Minimal periventricular white matter changes of microvascular ischemia. No change in comparison with 02/06/2021. Electronically signed by: Carmelo Rojas MD 02/24/2021 2:55 AM PROJECT CONSTRUCTION MANAGER Due to temporary technical issues with the PACS/Fluency reporting system, reports are being signed by the in house radiologists without review as a courtesy to insure prompt reporting. The interpreting radiologist is fully responsible for the content of the report.
[2021-02-24 15:17] LABS: Urine Appearance CLOUDY (Clear); Urine Bilirubin NEGATIVE (Negative); Urine Blood 1+ (Negative); Urine Color DK YELLOW (Yellow); Urine Glucose NEGATIVE (Negative); Urine Protein NEGATIVE (Negative); Urine pH 6.5 (5.0-7.0)
[2021-02-24 15:39] LABS: Urine Bacteria >50 /HPF (<20); Urine RBC <5 /HPF (NONE SEEN)
--- NOTE | 2021-02-24 17:43 | P.PN ---
Subjective Date of Service: 02/24/21 Chief Complaint: WEAK, FATIGUE, URINARY FREQUENCY Subjective: Improving SHE WALKED 300 FEET. LAST NIGHT NURSES CALLED ME SHE WAS CONFUSED HAD FACIAL TWITCHING AND APHASIA. THEY DID STAT CT THAT WAS NEGATIVE, WE DID MRI TODAY THAT WAS NEGATIVE FOR STROKE. SHE WAS TO DO ST CATH URINE YESTERDAY BUT WANTED TO USE COMMODE INSTEAD SO THE URINE SAMPLE YESTERDAY WAS CONTAMINATED. I ASKED THEM TO DO ST CATH URINE. TALKED TO NURSE A FEW TIMES AND CHARGE NURSE A FEW TIMES. IT WAS DONE BY 5 PM TODAY AND WE STARTED ANTIBIOTICS. I HAD A LONG TALK WITH DAUGHTERS. ONE LIVES HERE AND OTHER ONE LIVES AN HOUR AWAY. MOTHER IS NOT ABLE TO TAKE CARE OF HERSELF. WE USUALLY HAVE ONE DAY IN HOSPITAL FOR OBSERVATION. THERE IS NO INPATIENT DIAGNOSIS. I EXPLAINED THAT TO THE DAUGHTERS BUT THEY WERE NOT RECEPTIVE THE STEP FATHER IS OLD AND FATIGUED AND SO NOT ABLE TO TAKE CARE OF HER. THEY ARE NOT ABLE TO DO SO ALSO DAUGHTERS CAN'T LIVE WITH HER. I HAD COOK SPECIALTY TEAM WORK WITH THE DAUGHTERS. SHE IS DENIED FOR REHAB AND HALF-WAY SHE IS HIGH LEVEL FOR BOTH PER THE HEAD ANESTHESIOLOGIST PHYSICIAN SHAAN. SHE DOES NOT HAVE ANY NEW ISSUES. NURSES CALLED ME FOUR TIMES LAST NIGHT WITH HER SYMPTOMS WHICH ARE NOT THERE ANY LONGER. PER DAUGHTER WHO LIVES IN [place] SINCE THE HEAD INJURY WHEN SHE FELL SHE HAS DECLINED FAST. I EXPLAINED THAT ANY KIND OF CONCUSSION CAN BRING ABOUT THE CHANGES. I ALSO TOLD HER THAT IF ST CATH URINE IS POSITIVE, WE WILL TREAT HER FOR INFECTION AND NOW WE HAVE STARTED ABX. Review of Systems 10-point ROS is otherwise unremarkable General: Weakness, Malaise Neurological: Confusion (at times.) Physical Examination - Vital Signs Temperature: 98.6 F Blood Pressure: 138/65 Pulse: 70 Respirations: 20 Pulse Ox (%): 94 - Physical Exam General: Oriented x3, Oriented x2, Mild distress, Obese HEENT: Atraumatic, PERRLA, EOMI Neck: Supple, JVD not distended Respiratory: Clear to auscultation bilaterally, Normal air movement Cardiovascular: Regular rate/rhythm, Normal S1 S2 Gastrointestinal: Normal bowel sounds, No tenderness Musculoskeletal: No tenderness Integumentary: No rashes Neurological: Normal speech, Normal tone, Normal affect Lymphatics: No axilla or inguinal lymphadenopathy - Studies Laboratory Data (last 24 hrs) 02/24/21 02:16: Sodium 136, Potassium 3.5, BUN 12, Creatinine 0.52 L, Glucose 118 H, Magnesium 2.0 02/24/21 02:16: WBC 9.10 D, Hgb 12.6, Hct 36.9, Plt Count 395 02/23/21 21:12: Sodium 135 L, Potassium 3.6, BUN 13, Creatinine 0.60, Glucose 143 H, Phosphorus 3.4, Magnesium 1.9, Total Bilirubin 0.5, AST 18, ALT 33, Alkaline Phosphatase 67 02/23/21 21:12: PT 11.7, INR 1.02, APTT 25.3 02/23/21 21:12: WBC 7.00, Hgb 11.9 L, Hct 34.6 L, Plt Count 395 Medications List Reviewed: Yes Assessment And Plan - Current Problems (Diagnosis) (1) Altered mental state Current Visit: Yes Status: Chronic Plan: THIS CAN BE FROM UTI. THIS CAN BE ALSO FROM ATYPICAL SEIZURES THAT COME CONFUSION. I TALKED TO DAUGHTERS IN DETAIL. STARTED HER ON ROCEPHIN AND KEPPRA SMALL DOSE. DR. AMBRIZ HER NEUROLOGIST IS OUT OF COUNTRY. ORDER EEG. THERE IS NO OTHER NEURO AVAILABLE. I SUGGEST NURSING BUT FAMILY DOES NOT WANT TO. THEY WILL HAVE TO HIRE HELP AT HOME TO RELIVE HE STEP . SHE SHOULD BE ABLE TO GO HOME IN AM. Qualifiers: Altered mental status type: delirium Qualified Code(s): R41.0 - Disorientation, unspecified (2) Urinary frequency Current Visit: Yes Status: Acute Plan: HPI. (3) UTI (urinary tract infection) Current Visit: Yes Status: Acute Plan: STARTED ABX. SHOULD HELP HER MENTATION. (4) TIA (transient ischemic attack) Current Visit: Yes Status: Acute Plan: LAST NIGHT SYMPTOMS CAN BE FROM TIA OR ATYPICAL SEIZURES. STARTED MEDS TODAY. UTI WILL NOT GIVE YOU FACIAL WEAKNESS AND PARTIAL ANOMIA. SHE IS ON ASPIRIN. THEY ARE SAYING SHE IS ALLERGIC TO PLAVIX. I WILL CHANGE HER TO AGGRENOX.
[2021-02-24] MEDS: CEFTRIAXONE 1,000 MG in NA CHLORIDE 0.9% 50 ML IVPB SCH (18:43)
[2021-02-24] MEDS ORDERED: DIPYRIDAMOLE/ASPIRIN CAP ER PO SCH (21:00)
[2021-02-24] MEDS: ATORVASTATIN 80 MG TAB PO SCH (21:53)
[2021-02-24] MEDS: DIPHENHYDRAMINE 25 MG TAB/CAP PO PRN (21:54)
[2021-02-25 05:38] LABS: Absolute Lymphocytes (CBC) 1.7 K/uL (0.7-4.9); Basophils % 0.9 % (0-1.3); Hematocrit 37.2 % (36.0-45.0); Lymphocytes % 16.3 % (15.3-44.8); MPV 7.5 fL (7.6-11.3); RBC Red Blood Cell Count 4.39 M/uL (3.86-4.86)
[2021-02-25 05:49] LABS: BUN Blood Urea Nitrogen 10 mg/dL (7-18); Bicarbonate 27 mmol/L (21-32); Glucose Level 89 mg/dL (74-106); Potassium 3.6 mmol/L (3.5-5.1); Sodium Level 136 mmol/L (136-145)
[2021-02-25] MEDS: NACHLORIDE 0.45% 1,000 ML IV SCH (06:20)
[2021-02-25] MEDS: INSULIN -REGULAR HUMAN 50 UNIT/0.5 ML ML SQ SCH ×4 (07:30→21:00)
--- NOTE | 2021-02-25 07:50 | RAD REPORT ---
EXAM DESCRIPTION: - CP - 02/25/2021 12:11 am CLINICAL HISTORY: TIA COMPARISON: No comparisons TECHNIQUE: Real-time sonographic evaluation of both carotid systems was performed. Doppler interroga tion was performed with waveform tracing bilaterally. FINDINGS: Normal high resistance waveforms are noted in both external carotid arteries. The common c arotid arteries and internal carotid arteries show normal low resistance waveforms. Hard and soft plaque is seen at the carotid bifurcations. Peak systolic and end diastolic velocity va lues and the ICA/CCA ratios are in the non-hemodynamically significant range. Difficult to evaluate the vertebral arteries due to patient agitation. Both vertebral arteries are gr ossly patent, however. IMPRESSION: Mild atherosclerosis but no hemodynamically significant stenosis.
[2021-02-25] MEDS: INSULIN GLARGINE 100 UNIT/ML SQ SCH (08:30)
[2021-02-25] MEDS ORDERED: CEFTRIAXONE 1000 MG/VIAL ONE (08:36)
[2021-02-25] MEDS ORDERED: NA CHLORIDE 0.9% 50 ML ONE (08:51)
[2021-02-25] MEDS: DULOXETINE 30 MG CAP PO SCH (09:13)
[2021-02-25] MEDS: IRBESARTAN 150 MG TAB PO SCH (09:13)
[2021-02-25] MEDS: levETIRAcetam 500 MG TAB PO SCH ×2 (09:14→22:56)
[2021-02-25] MEDS: clonazePAM 0.5 MG TAB PO SCH ×2 (09:14→23:00)
[2021-02-25] MEDS: FAMOTIDINE 20 MG TAB PO SCH ×2 (09:15→22:56)
[2021-02-25] MEDS: METOPROLOL TAR 50 MG TAB PO SCH ×2 (09:15→22:55)
[2021-02-25] MEDS: CEFTRIAXONE 1,000 MG in NA CHLORIDE 0.9% 50 ML IVPB SCH ×2 (09:17→23:02)
[2021-02-25] MEDS: ENOXAPARIN 40 MG/0.4 ML SQ SCH (09:18)
--- NOTE | 2021-02-25 10:49 | P.PN ---
Subjective Date of Service: 02/25/21 Chief Complaint: WEAK, FATIGUE, URINARY FREQUENCY Subjective: Improving SHE WALKED 300 FEET. LAST NIGHT NURSES CALLED ME SHE WAS CONFUSED HAD FACIAL TWITCHING AND APHASIA. THEY DID STAT CT THAT WAS NEGATIVE, WE DID MRI TODAY THAT WAS NEGATIVE FOR STROKE. SHE WAS TO DO ST CATH URINE YESTERDAY BUT WANTED TO USE COMMODE INSTEAD SO THE URINE SAMPLE YESTERDAY WAS CONTAMINATED. I ASKED THEM TO DO ST CATH URINE. TALKED TO NURSE A FEW TIMES AND CHARGE NURSE A FEW TIMES. IT WAS DONE BY 5 PM TODAY AND WE STARTED ANTIBIOTICS. I HAD A LONG TALK WITH DAUGHTERS. ONE LIVES HERE AND OTHER ONE LIVES AN HOUR AWAY. MOTHER IS NOT ABLE TO TAKE CARE OF HERSELF. WE USUALLY HAVE ONE DAY IN HOSPITAL FOR OBSERVATION. THERE IS NO INPATIENT DIAGNOSIS. I EXPLAINED THAT TO THE DAUGHTERS BUT THEY WERE NOT RECEPTIVE THE STEP FATHER IS OLD AND FATIGUED AND SO NOT ABLE TO TAKE CARE OF HER. THEY ARE NOT ABLE TO DO SO ALSO DAUGHTERS CAN'T LIVE WITH HER. I HAD URGENT CARE TEAM WORK WITH THE DAUGHTERS. SHE IS DENIED FOR REHAB AND [facility] SHE IS HIGH LEVEL FOR BOTH PER THE HEAD SEO INTERN SHAAN. SHE DOES NOT HAVE ANY NEW ISSUES. NURSES CALLED ME FOUR TIMES LAST NIGHT WITH HER SYMPTOMS WHICH ARE NOT THERE ANY LONGER. PER DAUGHTER WHO LIVES IN [place] SINCE THE HEAD INJURY WHEN SHE FELL SHE HAS DECLINED FAST. I EXPLAINED THAT ANY KIND OF CONCUSSION CAN BRING ABOUT THE CHANGES. I ALSO TOLD HER THAT IF ST CATH URINE IS POSITIVE, WE WILL TREAT HER FOR INFECTION AND NOW WE HAVE STARTED ABX. TALKED TO DAUGHTER IN DETAIL AGAIN TODAY. SHE THOUGHT WE ARE TRYING TO THROW AWAY HE MOTHER BUT THAT IS NOT THE CASE. WE ARE TRYING TO FOLLOW MEDICARE RULES OF OBSERVATION. SHE IS STILL ON OBS. TODAY WE TRIED TO WALK HER BUT SHE STAYED UNSTEADY. I WILL HAVE TO KEEP HER HERE UNTIL SHE IS NOT A FALL RISK ANY LONGER. SHE NOW UNDERSTOOD THAT WE ARE PROVIDING THE MOST EXTENSIVE CARE FOR ANYONE SO COMPLICATED LIKE HER MOTHER WITH UTMOST ATTENTION. SHE READ THAT STROKE CAN GIVE YOU URINE AND STOOL ISSUES BUT I EXPLAINED THAT IS ONLY WHEN STROKE AFFECTS THE PARIETAL REGION OF BRAIN AND TRACT THAT GOES TO LUMBAR AREA. Review of Systems 10-point ROS is otherwise unremarkable General: Weakness Physical Examination - Vital Signs Temperature: 97.6 F Blood Pressure: 142/63 Pulse: 73 Respirations: 18 Pulse Ox (%): 92 - Physical Exam General: Oriented x3, Mild distress, Obese HEENT: Atraumatic, PERRLA, EOMI Neck: Supple, JVD not distended Respiratory: Clear to auscultation bilaterally, Normal air movement Cardiovascular: Regular rate/rhythm, Normal S1 S2 Gastrointestinal: Normal bowel sounds, No tenderness Musculoskeletal: No tenderness Integumentary: No rashes Neurological: Normal speech, Normal strength at 5/5 x4 extr, Normal tone, Normal affect, Abnormal gait (UNSTEADY, FALL RISK.) Lymphatics: No axilla or inguinal lymphadenopathy - Studies Laboratory Data (last 24 hrs) 02/25/21 04:59: Sodium 136, Potassium 3.6, BUN 10, Creatinine 0.45 L, Glucose 89, Magnesium 2.0 02/25/21 04:59: WBC 10.20, Hgb 12.8, Hct 37.2, Plt Count 388 Medications List Reviewed: Yes Assessment And Plan - Current Problems (Diagnosis) (1) Altered mental state Current Visit: Yes Status: Chronic Plan: THIS CAN BE FROM UTI. THIS CAN BE ALSO FROM ATYPICAL SEIZURES THAT COME CONFUSION. I TALKED TO DAUGHTERS IN DETAIL. STARTED HER ON ROCEPHIN AND KEPPRA SMALL DOSE. DR. AMBRIZ HER NEUROLOGIST IS OUT OF COUNTRY. ORDER EEG. THERE IS NO OTHER NEURO AVAILABLE. I SUGGEST NURSING BUT FAMILY DOES NOT WANT TO. THEY WILL HAVE TO HIRE HELP AT HOME TO RELIVE HE STEP . SHE SHOULD BE ABLE TO GO HOME IN AM. Qualifiers: Altered mental status type: delirium Qualified Code(s): R41.0 - Disorientation, unspecified (2) Urinary frequency Current Visit: Yes Status: Acute Plan: HPI. (3) UTI (urinary tract infection) Current Visit: Yes Status: Acute Plan: STARTED ABX. SHOULD HELP HER MENTATION. (4) TIA (transient ischemic attack) Current Visit: Yes Status: Acute Plan: LAST NIGHT SYMPTOMS CAN BE FROM TIA OR ATYPICAL SEIZURES. STARTED MEDS TODAY. UTI WILL NOT GIVE YOU FACIAL WEAKNESS AND PARTIAL ANOMIA. SHE IS ON ASPIRIN. THEY ARE SAYING SHE IS ALLERGIC TO PLAVIX. I WILL CHANGE HER TO AGGRENOX. (5) General weakness Current Visit: Yes Status: Acute Plan: NO FOCAL WEAKNESS. UNSTEADY. WEAK. NEEDS PT BUT MEDICARE REFUSED SO FAR.
[2021-02-25] MEDS: DIPYRIDAMOLE/ASPIRIN CAP ER PO SCH ×2 (12:00→22:55)
[2021-02-25] MEDS ORDERED: POTASSIUM CL SA 10 MEQ TAB PO ONE (14:51)
[2021-02-25 18:28] VITALS: O2SAT 97
[2021-02-25] MEDS ORDERED: INSULIN GLARGINE 100 UNIT/ML SQ SCH (20:30)
[2021-02-25 22:43] VITALS: BMI 36.7
[2021-02-25] MEDS: ATORVASTATIN 80 MG TAB PO SCH (22:56)
[2021-02-26 04:10] VITALS: TEMP 97.2
[2021-02-26] MEDS ORDERED: clonazePAM 0.5 MG TAB PO PRN (05:51)
--- NOTE | 2021-02-26 05:53 | P.PN ---
Subjective Date of Service: 02/26/21 Primary Care Provider: Dr. Howard; Neurology-Dr. Ivey Chief Complaint: WEAK, FATIGUE, URINARY FREQUENCY Subjective: Improving, Doing well Physical Examination - Vital Signs Temperature: 97.2 F Blood Pressure: 144/63 Pulse: 57 Respirations: 18 Pulse Ox (%): 95 - Studies Medications List Reviewed: Yes Assessment & Plan Discharge Plan: Home Plan to discharge in: 24 Hours Physician Review Additional Text: COVID: Negative Chest x-ray: COMPARISON: Chest Single View dated 02/06/2021; Chest Single View dated 01/05/2021; Chest Single View dated 10/22/2020; Chest Single View dated 10/20/2020 FINDINGS: Portable technique limits examination quality. The lungs are grossly clear. The heart is normal in size. No displaced fractures. IMPRESSION: No acute intrathoracic process suspected. CT head: COMPARISON: 02/06/2021. FINDINGS: Multiple transaxial tomograms of the brain were obtained from the base of the skull to the vertex without contrast. 2-D multiplanar reformats and the coronal and sagittal plane were performed and reviewed. This exam was performed according to our departmental dose-optimization protocol, which includes automated exposure control, adjustment of the mA and/or kV according to patient size and/or use of iterative reconstruction technique. Brain parenchyma demonstrate mild prominence of the sulci and gyri are corresponding to mild cerebral and cerebellar atrophy. There is minimal periventricular white matter changes of microvascular ischemia. Again there is a focus of hypodensity within the left basal ganglia-caudate head corresponding to an old lacunar infarct. There is no midline shift and/or mass effect. There is no evidence for acute intracranial hemorrhage. Lateral ventricles and cisterns displace normal appearance. No intra or extra axial fluid collections were seen. The calvarium is intact with no evidence for fracture. The visualized portions of the paranasal sinuses and orbits demonstrate to be clear. IMPRESSION: No evidence for acute intracranial hemorrhage. 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 Minimal periventricular white matter changes of microvascular ischemia. No change in comparison with 02/06/2021. CT AB/Pelvis: COMPARISON: 02/06/2021 TECHNIQUE: Multiple transaxial tomograms of the abdomen and pelvis were performed from the lung bases to the symphysis pubis 5 mm slice thickness at 5 mm interval reconstruction, without administration of IV and oral contrast. Multiplanar reformats in the sagittal and coronal plane were generated and reviewed. This exam was performed according to our departmental dose-optimization protocol, which includes automated exposure control, adjustment of the mA and/or kV according to patient size and/or use of iterative reconstruction technique. FINDINGS: The lack of IV and oral contrast limits evaluation of solid organs, subtle lesions cannot be excluded. The lung bases demonstrate to be clear. Minimal coronary artery calcific lesions. Grossly the unopacified liver, pancreas, spleen and adrenal glands demonstrate to be within normal limits, no significant focal lesions were identified. Surgical clips within the gallbladder fossa correspond to previous cholecystectomy. The kidneys demonstrate grossly unremarkable. There is no evidence for nephrolithiasis and/or hydronephrosis. Again there is a rim calcified structure within the right renal hilum corresponding to a rim calcified aneurysm measuring 1.1 and 0.8 cm on image 37. The ureters displays normal appearance with normal caliber, no hydroureter was seen. Grossly the unopacified stomach, small bowel and large bowel demonstrate to be within normal limits. There is no evidence for bowel dilatation and/or free air. The appendix is normal. There is fecal residue within the rectum. The urinary bladder demonstrate to be within normal limits. The uterus is absent. There are no adnexal masses The aorta demonstrate minimal atherosclerotic disease. There is no retroperitoneal lymphadenopathy. There is no evidence for ascites. The bone windows demonstrate grade 1 degenerative spondylolisthesis at L4/L5. IMPRESSION: No evidence for nephrolithiasis and/or hydronephrosis. 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 Status post cholecystectomy and hysterectomy. Grade 1 degenerative spondylolisthesis at L4/L5. No significant interval change. MRI brain: COMPARISON: Ct Stroke Brain Wo Cont dated 02/24/2021 TECHNIQUE: Multi-sequence, multiplanar MR imaging of the brain was performed without contrast. FINDINGS: No intracranial hemorrhage, hydrocephalus or extra-axial fluid collections.Mild generalized brain atrophy is present with mild periventricular and deep white matter chronic microvascular ischemic changes. No edema or shift of midline structures. No findings to suspect brain mass.Old left periventricular infarction is present. DWI is negative for acute CVA. Midline structures are normally formed. Mastoid air cells and paranasal sinuses are clear. IMPRESSION: Negative for acute CVA or other acute intracranial abnormality. Carotid Doppler: COMPARISON: No comparisons TECHNIQUE: Real-time sonographic evaluation of both carotid systems was performed. Doppler interrogation was performed with waveform tracing bilaterally. FINDINGS: Normal high resistance waveforms are noted in both external carotid arteries. The common carotid arteries and internal carotid arteries show normal low resistance waveforms. Hard and soft plaque is seen at the carotid bifurcations. Peak systolic and end diastolic velocity values and the ICA/CCA ratios are in the non-hemodynamically significant range. Difficult to evaluate the vertebral arteries due to patient agitation. Both vertebral arteries are grossly patent, however. IMPRESSION: Mild atherosclerosis but no hemodynamically significant stenosis. Physical Exam: GENERAL: Patient alert, cooperative. VITAL SIGNS: Reviewed HEENT: Head is normocephalic and atraumatic. Extraocular muscles are intact. Pupils are equal, round, and reactive to light and accommodation. Nares appeared normal. Mouth is well hydrated and without lesions. Mucous membranes are moist. NECK: Supple. No carotid bruits. No lymphadenopathy or thyromegaly. LUNGS: Clear to auscultation. No crackles or wheezes are heard. HEART: Regular rate and rhythm, no appreciable gallops, rubs, murmurs or extra heart sounds ABDOMEN: Soft, nontender, and nondistended. Positive bowel sounds. No hepatosplenomegaly was noted. EXTREMITIES: Without any cyanosis, clubbing, rash, lesions or peripheral edema. NEUROLOGIC: The patient is oriented to person, place and time. Strength and sensation are grossly intact. Face is symmetric. SKIN: Normal color, turgor and temperature. No ulcerations or rashes noted. Impression: Toxic encephalopathy secondary to UTI, urine culture positive for Klebsiella pneumoniae History of CVA Hypertension Depression with anxiety Hyperlipidemia Diabetes mellitus type 2 insulin-dependent GERD Plan: Toxic encephalopathy secondary to UTI, urine culture positive for Klebsiella pneumoniae: Patient doing at this time. Will change IV antibiotic therapy to Ceftin 200 mg 1 pill twice daily. Physical therapy to assess ambulation. Patient was having some increased weakness and lethargy with Keppra. Case discussed in detail with neurology. No need for Keppra at this time as altered mental status likely related to UTI. Discontinue Keppra. We will also discontinue Benadryl. Will change Klonopin to as needed. If doing well will discharge home today. Plan of care addressed in detail with family member. History of CVA: Continue aspirin and dipyridamole. We will add folic acid 1 mg daily. No need for Keppra as this was likely causing increased sedation. No seizures identified. Case discussed in detail with neurology who sees the patient as an outpatient. No evidence of seizure. This was discussed in detail with family member. Hypertension: Ibesartan 300 mg daily and metoprolol 100 mg twice daily. Depression with anxiety: Continue Cymbalta 60 mg daily. Will change Klonopin to as needed. Hyperlipidemia: Continue Lipitor 80 mg daily Diabetes mellitus type 2 insulin-dependent: Continue with insulin medicationLantus 40 units in the morning and 30 units at night. GERD: Continue Protonix 40 mg daily. Code Status: Full Code DVT prophylaxis: Lovenox Advanced Care Planning-30 minutes: Home at discharge with home health Time Spent Managing Pts Care (In Minutes): 55
[2021-02-26 06:09] LABS: Absolute Lymphocytes (CBC) 1.4 K/uL (0.7-4.9); Basophils % 0.5 % (0-1.3); Hematocrit 36.2 % (36.0-45.0); Lymphocytes % 14.6 % (15.3-44.8); MPV 7.7 fL (7.6-11.3); RBC Red Blood Cell Count 4.23 M/uL (3.86-4.86)
[2021-02-26 06:22] LABS: BUN Blood Urea Nitrogen 14 mg/dL (7-18); Bicarbonate 28 mmol/L (21-32); Glucose Level 116 mg/dL (74-106); Magnesium 2.1 mg/dL (1.8-2.4); Potassium 3.7 mmol/L (3.5-5.1); Sodium Level 137 mmol/L (136-145)
[2021-02-26] MEDS: INSULIN -REGULAR HUMAN 50 UNIT/0.5 ML ML SQ SCH ×2 (07:30→12:09)
[2021-02-26] MEDS ORDERED: MAGNESIUM OXIDE 400 MG TAB PO ONE (08:15)
--- NOTE | 2021-02-26 08:39 | P.DS ---
Admission Date: 02/25/21 Discharge Date: 02/26/21 Primary Care Provider: Dr. Howard; Neurology-Dr. Ivey Disposition: DC HOME/HOME HEALTH CARE Discharge Condition: FAIR Reason for Admission: WEAK, FATIGUE, URINARY FREQUENCY Consultations: none Procedures: COVID: Negative Chest x-ray: COMPARISON: Chest Single View dated 02/06/2021; Chest Single View dated 01/05/2021; Chest Single View dated 10/22/2020; Chest Single View dated 10/20/2020 FINDINGS: Portable technique limits examination quality. The lungs are grossly clear. The heart is normal in size. No displaced fractures. IMPRESSION: No acute intrathoracic process suspected. CT head: COMPARISON: 02/06/2021. FINDINGS: Multiple transaxial tomograms of the brain were obtained from the base of the skull to the vertex without contrast. 2-D multiplanar reformats and the coronal and sagittal plane were performed and reviewed. This exam was performed according to our departmental dose-optimization protocol, which includes automated exposure control, adjustment of the mA and/or kV according to patient size and/or use of iterative reconstruction technique. Brain parenchyma demonstrate mild prominence of the sulci and gyri are corresponding to mild cerebral and cerebellar atrophy. There is minimal periventricular white matter changes of microvascular ischemia. Again there is a focus of hypodensity within the left basal ganglia-caudate head corresponding to an old lacunar infarct. There is no midline shift and/or mass effect. There is no evidence for acute intracranial hemorrhage. Lateral ventricles and cisterns displace normal appearance. No intra or extra axial fluid collections were seen. The calvarium is intact with no evidence for fracture. The visualized portions of the paranasal sinuses and orbits demonstrate to be clear. IMPRESSION: No evidence for acute intracranial hemorrhage. 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 Minimal periventricular white matter changes of microvascular ischemia. No change in comparison with 02/06/2021. CT AB/Pelvis: COMPARISON: 02/06/2021 TECHNIQUE: Multiple transaxial tomograms of the abdomen and pelvis were performed from the lung bases to the symphysis pubis 5 mm slice thickness at 5 mm interval reconstruction, without administration of IV and oral contrast. Multiplanar reformats in the sagittal and coronal plane were generated and reviewed. This exam was performed according to our departmental dose-optimization protocol, which includes automated exposure control, adjustment of the mA and/or kV according to patient size and/or use of iterative reconstruction technique. FINDINGS: The lack of IV and oral contrast limits evaluation of solid organs, subtle lesions cannot be excluded. The lung bases demonstrate to be clear. Minimal coronary artery calcific lesions. Grossly the unopacified liver, pancreas, spleen and adrenal glands demonstrate to be within normal limits, no significant focal lesions were identified. Surgical clips within the gallbladder fossa correspond to previous cholecystectomy. The kidneys demonstrate grossly unremarkable. There is no evidence for nephrolithiasis and/or hydronephrosis. Again there is a rim calcified structure within the right renal hilum corresponding to a rim calcified aneurysm measuring 1.1 and 0.8 cm on image 37. The ureters displays normal appearance with normal caliber, no hydroureter was seen. Grossly the unopacified stomach, small bowel and large bowel demonstrate to be within normal limits. There is no evidence for bowel dilatation and/or free air. The appendix is normal. There is fecal residue within the rectum. The urinary bladder demonstrate to be within normal limits. The uterus is absent. There are no adnexal masses The aorta demonstrate minimal atherosclerotic disease. There is no retroperitoneal lymphadenopathy. There is no evidence for ascites. The bone windows demonstrate grade 1 degenerative spondylolisthesis at L4/L5. IMPRESSION: No evidence for nephrolithiasis and/or hydronephrosis. 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 Status post cholecystectomy and hysterectomy. Grade 1 degenerative spondylolisthesis at L4/L5. No significant interval change. MRI brain: COMPARISON: Ct Stroke Brain Wo Cont dated 02/24/2021 TECHNIQUE: Multi-sequence, multiplanar MR imaging of the brain was performed without contrast. FINDINGS: No intracranial hemorrhage, hydrocephalus or extra-axial fluid collections.Mild generalized brain atrophy is present with mild periventricular and deep white matter chronic microvascular ischemic changes. No edema or shift of midline structures. No findings to suspect brain mass.Old left periventricular infarction is present. DWI is negative for acute CVA. Midline structures are normally formed. Mastoid air cells and paranasal sinuses are clear. IMPRESSION: Negative for acute CVA or other acute intracranial abnormality. Carotid Doppler: COMPARISON: No comparisons TECHNIQUE: Real-time sonographic evaluation of both carotid systems was performed. Doppler interrogation was performed with waveform tracing bilaterally. FINDINGS: Normal high resistance waveforms are noted in both external carotid arteries. The common carotid arteries and internal carotid arteries show normal low resistance waveforms. Hard and soft plaque is seen at the carotid bifurcations. Peak systolic and end diastolic velocity values and the ICA/CCA ratios are in the non-hemodynamically significant range. Difficult to evaluate the vertebral arteries due to patient agitation. Both vertebral arteries are grossly patent, however. IMPRESSION: Mild atherosclerosis but no hemodynamically significant stenosis. Medical Problem List: Toxic encephalopathy secondary to UTI, urine culture positive for Klebsiella pneumoniae History of CVA with possible early vascular dementia Hypertension Depression with anxiety Hyperlipidemia Diabetes mellitus type 2 insulin-dependent GERD Brief History of Present Illness: 70-year-old female with history of CVA, hypertension, hyperlipidemia, diabetes mellitus type 2, and GERD. Patient presented with confusion and slight tremors. Patient had been recently hospitalized earlier this month for hyponatremia. Patient admitted for further evaluation. Hospital Course: Patient presented with weakness, mild tremor and altered mental status. Patient found to have toxic encephalopathy related to UTI. Patient was treated with IV antibiotic therapy. Urine culture positive for Klebsiella pneumoniae. Extensive work-up also included CT head which showed no evidence of acute stroke. CT abdomen and pelvis showed no acute abdominal abnormality. MRI showed no acute stroke. Chronic ischemic changes and old stroke noted. Keppra was added as there was some suspicion of possible atypical seizure. When this was added increase sedation was noted. Keppra was discontinued. Case discussed in detail with neurology. No need for antiseizure medication at this time. Other medications including Benadryl was discontinued. Her Klonopin was also changed to as needed at a lower dose. At discharge patient ambulating well. At discharge she will continue with UTI treatment Ceftin 250 mg 1 pill twice daily for 3 more days to complete UTI treatment. UTI prevention provided. Patient will continue with home health and physical therapy at discharge. Patient may require caregiver services in the future if needed. Recommend follow-up with PCP in 1 week to follow-up his hospitalization. Patient with history of CVA. CT scan and MRI showed no acute stroke. Chronic ischemic changes identified. As mentioned above Keppra was added during the course of her stay for possible atypical seizure. Case discussed in detail with neurology. Keppra was causing increased sedation. After thorough evaluation, neurology recommended no Keppra. Patient has done well off medication. Patient able to ambulate appropriately. At discharge patient will continue with her current medications of aspirin/dipyridamole daily and folic acid 1 mg daily. No need for Keppra at this time. Patient may have underlying early vascular dementia. This was explained in detail with the daughter. Patient also worked well with physical therapy. Patient was able to ambulate more than 200 feet. Physical therapy recommended home health and physical therapy. Patient will go home with family. Consider caregiver services if needed in the future. Recommend no driving. Recommend follow-up with neurology as an outpatient to further monitor and address. Further recommendations may come from neurology as an outpatient. Continue with CVA prevention medication and precautions. Patient with hypertension. Overall stable. At discharge patient will continue with ibesartan 300 mg daily and metoprolol 100 mg 1 pill twice daily. Recommend to maintain blood pressure less 130/80. Further adjustment can be done by her PCP. Patient with hyperlipidemia. At discharge patient will continue with Lipitor 80 mg daily. Recommend to recheck labCMP and fasting lipid panel in 4 to 6 weeks to monitor progress. Patient with GERD. At discharge patient may continue with Protonix 40 mg daily. Patient with diabetes mellitus type 2 insulin-dependent. At discharge patient will continue with her insulin regimen of Lantus 60 units subcu in the morning and 50 units subcu at night. Recommend to maintain blood sugar less than 140 fasting and less than 200 after meals. Further adjustment in her medication may be required. This can be done with the help of her PCP. Recommend to recheck hemoglobin A1c every 3 months. Recommend follow-up with her PCP to further monitor and adjust. Patient with depression with anxiety. At discharge patient will continue with Cymbalta 60 mg daily. Recommend to take Klonopin 0.25 mg 1 pill twice daily as needed for anxiety or agitation. No further use of Benadryl. Further adjustment can be done by her PCP. Patient may continue with medication for constipation including docusate daily. Plan of care discussed in detail with family and patient. Vital Signs/Physical Exam: Temp Pulse Resp BP Pulse Ox 97.2 F 57 18 144/63 H 95 02/26/21 08:32 02/26/21 08:32 02/26/21 08:32 02/26/21 08:32 02/26/21 08:32 General: Alert, In no apparent distress, Cooperative HEENT: Atraumatic Neck: Supple Respiratory: Clear to auscultation bilaterally, Normal air movement Cardiovascular: Normal pulses, Regular rate/rhythm Gastrointestinal: Normal bowel sounds, No tenderness, No masses, No rebound, No guarding Musculoskeletal: No erythema, No tenderness, No warmth Integumentary: No tenderness/swelling, No erythema, No warmth, No cyanosis Neurological: Normal speech, Normal strength at 5/5 x4 extr, Normal tone, Normal affect Laboratory Data at Discharge: WBC 9.50 K/uL (4.3-10.9) 02/26/21 05:34 Hgb 12.4 g/dL (12.0-15.0) 02/26/21 05:34 Hct 36.2 % (36.0-45.0) 02/26/21 05:34 Plt Count 386 K/uL (152-406) 02/26/21 05:34 PT 11.7 SECONDS (9.5-12.5) 02/23/21 21:12 INR 1.02 02/23/21 21:12 APTT 25.3 SECONDS (24.3-36.9) 02/23/21 21:12 Sodium 137 mmol/L (136-145) 02/26/21 05:34 Potassium 3.7 mmol/L (3.5-5.1) 02/26/21 05:34 BUN 14 mg/dL (7-18) 02/26/21 05:34 Creatinine 0.51 mg/dL (0.55-1.3) L 02/26/21 05:34 Glucose 116 mg/dL (74-106) H 02/26/21 05:34 Phosphorus 3.4 mg/dL (2.5-4.9) 02/23/21 21:12 Magnesium 2.1 mg/dL (1.8-2.4) 02/26/21 05:34 Total Bilirubin 0.5 mg/dL (0.2-1.0) 02/23/21 21:12 AST 18 U/L (15-37) 02/23/21 21:12 ALT 33 U/L (12-78) 02/23/21 21:12 Alkaline Phosphatase 67 U/L (45-117) 02/23/21 21:12 Home Medications: Insulin Glargine,Hum.rec.anlog [Basaglar Kwikpen U-100] 50 unit SQ 30 MIN BEFORE HS 01/16/20 Irbesartan [Avapro] 300 mg PO DAILY 03/21/19 Metoprolol Tartrate [Lopressor] 100 mg PO BID 03/21/19 Atorvastatin Calcium [Lipitor] 80 mg PO BEDTIME 01/12/21 Pantoprazole [Protonix Tab*] 40 mg PO DAILYAC #30 tab 01/23/21 Duloxetine HCl 60 mg PO DAILY 02/06/21 Insulin Glargine,Hum.rec.anlog [Basaglar Kwikpen U-100] 60 units SQ BREAKFAST 02/06/21 Docusate [Colace Cap*] 100 mg PO PRN PRN 02/24/21 Polyethylene Glycol 3350 [Miralax] 17 gm PO PRN PRN 02/24/21 Dipyridamole/Aspirin [Aggrenox 25 mg-200 mg Cap*] 1 cap PO BID #60 cap 02/25/21 clonazePAM [Klonopin*] 0.25 mg PO BID tab 02/25/21 Cefuroxime [Ceftin*] 250 mg PO BID #6 tab 02/26/21 Folic Acid 1 mg PO DAILY #90 tablet 02/26/21 Pantoprazole [Protonix Tab*] 40 mg PO DAILYAC #30 tab 02/26/21 New Medications: Dipyridamole/Aspirin [Aggrenox 25 mg-200 mg Cap*] 1 cap PO BID #60 cap Cefuroxime [Ceftin*] 250 mg PO BID #6 tab Folic Acid 1 mg PO DAILY #90 tablet Pantoprazole [Protonix Tab*] 40 mg PO DAILYAC #30 tab Physician Discharge Instructions: Patient presented with weakness, mild tremor and altered mental status. Patient found to have toxic encephalopathy related to UTI. Patient was treated with IV antibiotic therapy. Urine culture positive for Klebsiella pneumoniae. Extensive work-up also included CT head which showed no evidence of acute stroke. CT abdomen and pelvis showed no acute abdominal abnormality. MRI showed no acute stroke. Chronic ischemic changes and old stroke noted. Keppra was added as there was some suspicion of possible atypical seizure. When this was added increase sedation was noted. Keppra was discontinued. Case discussed in detail with neurology. No need for antiseizure medication at this time. Other medications including Benadryl was discontinued. Her Klonopin was also changed to as needed at a lower dose. At discharge patient ambulating well. At discharge she will continue with UTI treatment Ceftin 250 mg 1 pill twice daily for 3 more days to complete UTI treatment. UTI prevention provided. Patient will continue with home health and physical therapy at discharge. Patient may require caregiver services in the future if needed. Recommend follow-up with PCP in 1 week to follow-up his hospitalization. Patient with history of CVA. CT scan and MRI showed no acute stroke. Chronic ischemic changes identified. As mentioned above Keppra was added during the course of her stay for possible atypical seizure. Case discussed in detail with neurology. Keppra was causing increased sedation. After thorough evaluation, neurology recommended no Keppra. Patient has done well off medication. Patient able to ambulate appropriately. At discharge patient will continue with her current medications of aspirin/dipyridamole daily and folic acid 1 mg daily. No need for Keppra at this time. Patient may have underlying early vascular dementia. This was explained in detail with the daughter. Patient also worked well with physical therapy. Patient was able to ambulate more than 200 feet. Physical therapy recommended home health and physical therapy. Patient will go home with family. Consider caregiver services if needed in the future. Recommend no driving. Recommend follow-up with neurology as an outpatient to further monitor and address. Further recommendations may come from neurology as an outpatient. Continue with CVA prevention medication and precautions. Patient with hypertension. Overall stable. At discharge patient will continue with ibesartan 300 mg daily and metoprolol 100 mg 1 pill twice daily. Recommend to maintain blood pressure less 130/80. Further adjustment can be done by her PCP. Patient with hyperlipidemia. At discharge patient will continue with Lipitor 80 mg daily. Recommend to recheck labCMP and fasting lipid panel in 4 to 6 weeks to monitor progress. Patient with GERD. At discharge patient may continue with Protonix 40 mg daily. Patient with diabetes mellitus type 2 insulin-dependent. At discharge patient will continue with her insulin regimen of Lantus 60 units subcu in the morning and 50 units subcu at night. Recommend to maintain blood sugar less than 140 fasting and less than 200 after meals. Further adjustment in her medication may be required. This can be done with the help of her PCP. Recommend to recheck hemoglobin A1c every 3 months. Recommend follow-up with her PCP to further monitor and adjust. Patient with depression with anxiety. At discharge patient will continue with Cymbalta 60 mg daily. Recommend to take Klonopin 0.25 mg 1 pill twice daily as needed for anxiety or agitation. No further use of Benadryl. Further adjustment can be done by her PCP. Patient may continue with medication for constipation including docusate daily. Plan of care discussed in detail with family and patient. Diet: ADA Activity: Fall precautions Time spent managing pt's care (in minutes): 55
[2021-02-26] MEDS ORDERED: CEFUROXIME 250 MG TAB PO SCH (09:00)
[2021-02-26] MEDS ORDERED: FOLIC ACID 1 MG TABLET PO SCH (09:00)
[2021-02-26] MEDS: DIPYRIDAMOLE/ASPIRIN CAP ER PO SCH (09:51)
[2021-02-26] MEDS: IRBESARTAN 150 MG TAB PO SCH (09:52)
[2021-02-26] MEDS: METOPROLOL TAR 50 MG TAB PO SCH (09:52)
[2021-02-26] MEDS: DULOXETINE 30 MG CAP PO SCH (09:53)
[2021-02-26] MEDS: ENOXAPARIN 40 MG/0.4 ML SQ SCH (09:55)
[2021-02-26] MEDS: INSULIN GLARGINE 100 UNIT/ML SQ SCH (09:55)
[2021-02-26 13:42] VITALS: BP 164/68
[2021-02-27] MEDS ORDERED: PANTOPRAZOLE 40MG TABLET PO SCH (06:30)
--- NOTE | 2021-03-01 15:50 | EEG ---
CHART: [id number] TEST ID#: [id number] DATE OF STUDY: 02/25/2021 THE EEG WAS RECORDED PORTABLE IN THE PATIENT'S ROOM ON A 17 CHANNEL MACHINE. ELECTRODES WERE APPLIED IN THE USUAL MANNER USING THE INTERNATIONAL 10-20 SYSTEM. THE WAKING BACKGROUND RHYTHM IN THIS RECORD CONSISTS OF POORLY DEVELOPED AND POORLY ORGANIZED WAVES OF 7.5 HZ., MAXIMAL IN THE POSTERIOR HEAD REGIONS WHICH ATTENUATE NORMALLY WITH EYE OPENING. MODERATE VOLTAGE 1.5-3 HZ ACTIVITY IS EXPRESSED IN THE FRONTAL REGIONS. LOW VOLTAGE 15-18 HZ ACTIVITY IS DIFFUSELY EXPRESSED. THERE ARE NO FOCAL OR LATERALIZING FEATURES. NO EPILEPTIFORM ACTIVITY APPEARS. SLEEP OCCURRED NATURALLY. IN ADDITION NORMAL SLEEP PATTERNS ARE PRESENT. HYPERVENTILATION WAS NOT PERFORMED. PHOTIC STIMULATION PRODUCED NO DRIVING BILATERALLY. IMPRESSION: THIS IS A MILDLY ABNORMAL EEG DUE TO A MILDLY SLOW BACKGROUND AND POSTERIOR DOMINANT RHYTHM. THESE ARE NON-SPECIFIC FINDINGS INDICATING THE PRESENCE OF A MILD DIFFUSE DISTURBANCE IN CEREBRAL FUNCTION. NO FOCAL, LATERALIZING OR EPILEPTIFORM ACTIVITY OCCURRED DURING THIS STUDY.
== END 2021-02-26 13:52 | disposition home health service (06) | DRG 689 ==
LOC: 2ND 18:20 → OBSVTOIN 02-25 12:26
PROVIDERS: ADMIT Internal Medicine; ATTEND Internal Medicine
DX: N39.0 Urinary tract infection, site not specified (principal); G92.9 Unspecified toxic encephalopathy; R47.01 Aphasia; F41.8 Other specified anxiety disorders; I10 Essential (primary) hypertension; E78.5 Hyperlipidemia, unspecified; F01.50 Vascular dementia, unspecified severity, without behavioral disturbance, psychotic disturbance, mood disturbance, and anxiety; E11.9 Type 2 diabetes mellitus without complications; K21.9 Gastro-esophageal reflux disease without esophagitis; B96.1 Klebsiella pneumoniae [K. pneumoniae] as the cause of diseases classified elsewhere; R35.0 Frequency of micturition; Z86.73 Personal history of transient ischemic attack (TIA), and cerebral infarction without residual deficits; Z79.4 Long term (current) use of insulin; Z79.82 Long term (current) use of aspirin; Z88.8 Allergy status to other drugs, medicaments and biological substances; Z20.822 Contact with and (suspected) exposure to COVID-19
CPT/HCPCS: 36415; 70450; 70551; 71045; 74176; 80048; 80076; 81001; 81003; 81015; 82043; 82306; 82570; 82607; 82947; 83036; 83735; 84100; 84443; 85025; 85610; 85730; 87077; 87086; 87088; 87186; 90471; 92610; 93880; 95819; 97110; 97116; 97161; 97530; G0378; G0379; J1650; J2405; J3480; J3486; Q2035; U0003

== ENCOUNTER 2021-12-02 08:11 | Emergency (ER) | payer OTHER ==
--- OUTSIDE RECORDS SUMMARY | 2021-12-02 08:21 | XMS REPORT | Continuity of Care Document ---
:1950 Author Organization [facility] t Address [address] [place] [address] Care Team Providers Name Role Phone Jaylon Joshi MD Primary Care Physician Rudy Persaud Rahil Attending Clinician Unavailable [id number] Attending Clinician Unavailable JAYLON JOSHI Attending Clinician Unavailable Jaylon Joshi MD Attending Clinician Arielle Guido Attending Clinician SHARATH MATHEWS Attending Clinician Unavailable Nenita Ivy MD Attending Clinician Unavailable Rebecca DURAN, Alex Hill Attending Clinician [phone] Ryan Basurto Attending Clinician Unavailable Eli DURAN, Kranthi Attending Clinician Viola Lane MD Attending Clinician Sharath Mathews MD Attending Clinician NENITA IVY Attending Clinician Unavailable Rudy Persaud Rahil Admitting Clinician Unavailable [id number] Admitting Clinician Unavailable NENITA IVY Admitting Clinician Unavailable Payers Payer Name Policy Type Policy Number Effective Date Expiration Date S ledy [facility] [id number] MEDICARE PART A \T\ [id number] 2013 B 00:00:00 COMMERCIAL [id number] 2013 NON-CONTRACT 00:00:00 GENERIC MEDICARE A B [id number] 2013 00:00:00 GENERIC MEDICARE [id number] 2020 SUPPLEMENT 00:00:00 Problems Condition Condition Condition Status Onset Resolution Last Treating Co mments Source Name Details Category Date Date Treatment Clinician Date Psoriasis Psoriasis Disease Active Uni vers of scalp of scalp 5-12 ity of 00:00: [place] 00 Medical Branch Vitamin D Vitamin D Disease Active Uni vers deficiency deficiency 2-03 it y of 00:00: [place] 00 Medical Branch Diabetes Diabetes Disease Active Unive rs mellitus mellitus 2-03 ity of with with 00:00: [place] gastropare gastropare 00 Me dical sis sis Branch Need for Need for Disease Active Unive rs influenza influenza 1-19 ity of vaccinatio vaccinatio [place] 00 Medical Branch Decreased Decreased Disease Active Uni vers appetite appetite 1-19 ity of 00:00: [place] 00 Medical Branch Essential Essential Disease Active Uni vers hypertensi hypertensi 1-14 it y of on on 00:00: [place] 00 Medical Branch Diabetes Diabetes Disease Active Unive rs mellitus mellitus 1-14 ity of type 2, type 2, 00:00: [place] insulin insulin 00 Medical dependent dependent Bran ch Senile Senile Disease Active Univers osteoporos osteoporos 1-14 it y of is is 00:00: [place] 00 Medical Branch Dyslipidem Dyslipidem Disease Active U nivers ia ia 1-14 ity of 00:00: [place] 00 Medical Branch Diabetic Diabetic Disease Active Unive rs eye exam eye exam 1-14 ity of 00:00: [place] 00 Medical Branch Need for Need for Disease Active Unive rs hepatitis hepatitis 1-14 ity of C C 00:00: [place] screening screening 00 Medi ania test test Branch Obesity Obesity Disease Active Univers (BMI (BMI 1-14 ity of 30-39.9) 30-39.9) 00:00: [place] Medical [facility] Recurrent Recurrent Disease Active Uni vers UTI UTI 1-14 ity of 00:00: [place] Medical [facility] Anxiety Anxiety Disease Active Univers about about 1-14 ity of health health 00:00: [place] [facility] Primary Primary Disease Active Univers insomnia insomnia 1-14 ity of 00:00: [place] [facility] 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 00:00: [place] ganglia ganglia 00 Medical Branch Mild Mild Disease Active Univers depression depression 1-14 it y of 00:00: [place] Medical [facility] Memory Memory Disease Active Univers changes changes 1-14 ity of 00:00: [place] Medical Branch Weakness Weakness Disease Active Unive rs of both of both 1-14 ity of lower lower 00:00: [place] extremitie extremitie 00 Me dical s s Branch Gastroesop Gastroesop Disease Active U nivers hageal hageal 1-14 ity of reflux reflux 00:00: [place] disease disease 00 Medical without without Branch esophagiti esophagiti s s Constipati Constipati Disease Active U nivers on due to on due to 1-14 ity of slow slow 00:00: [place] transit transit 00 Medical Branch HTN HTN Disease Active 2020-[address] [facility] [address] (hypertens (hypertens 1-03 Lisa kes ion) ion) 00:00: [facility] 00 Center T2DM (type T2DM (type Disease Active 2020-[address] 2 diabetes 2 diabetes 1-03 Lisa kes mellitus) mellitus) 00:00: [facility] 00 Center Right Right Disease Active 2020-[address] [facility] humeral humeral -03 [facility] fracture [facility] 00 Center Ischemic Ischemic Disease Active 2020-03 [facility] 00:00: [facility] 00 Center Allergies, Adverse Reactions, Alerts Allergy Allergy Status Severity Reaction(s) Onset Inactive Treating Comm ents Source Name Type Date Date Clinician IODINE DRUG Active Med Rash Univers INGREDI - ity of 00:00: [place] 00 Medical Branch CLOPIDOG DRUG Active Med Rash Univers REL INGREDI - ity of 00:00: [place] 00 Medical Branch Iodine Propensi Active Rash Univers ty to 11-24 ity of adverse 00:00: [place] reaction 00 Medical s to Branch drug Clopidog Propensi Active Rash Univer s rel ty to 11-24 ity of adverse 00:00: [place] reaction 00 Medical s to Branch drug NO KNOWN Allergy Active [facility] Social History Social Habit Start Date Stop Date Quantity Comments Source Exposure to 2021-10-12 2021-10-22 Not sure [facility] SARS-CoV-2 (event) 00:00:00 13:25:00 Medica Branch Tobacco use and 2021-01-07 2021-01-[address] [facility] Lisa kes exposure 00:00:00 00:00:00 [facility] Sex Assigned At [address] [facility] 00:00:00 00:00:00 [facility] Center Smoking Status Start Date Stop Date Source Tobacco smoking consumption [facility] Branch Never smoker [facility] Medications Ordered Filled Start Stop Current Ordering Indication Dosage Frequency Signature Comments Components Source Medication Medication Date Date Medication? Clinician (SIG) Name Name metoprolol 2021- No [id number] 1 tablet Univers tartrate 11-24 with food ity o f 100 mg 15:46: 00:00 [place] tablet 47 :00 Medical Branch metoprolol 2021- No [id number] 1 tablet Univers tartrate 11-24 with food ity o f 100 mg 15:46: 00:00 [place] tablet 47 :00 Medical Branch amLODIPine 2021- No [id number] 1 tablet Univers 10 mg 11-24 ity of tablet 15:46: 00:00 [place] 31 :00 Medical Branch amLODIPine 2021- No [id number] 1 tablet Univers 10 mg 11-24 ity of tablet 15:46: 00:00 [place] 31 :00 Medical Branch acetaminoph Yes Take by Uni vers en (TYLENOL 11-24 mouth. ity of ORAL) 15:02: [place] 18 Medical Branch aspirin 325 2022-0 Yes 1 tablet Un rubi mg tablet -21 ity of 15:02: [place] 18 Medical Branch acetaminoph 2021-0 Yes Take by Uni vers en (TYLENOL - mouth. ity of ORAL) 15:02: [place] 18 Medical Branch aspirin 325 2021-0 Yes 1 tablet Un rubi mg tablet 11-24 ity of 15:02: [place] 18 Medical Branch atorvastati 2021-0 Yes [id number] 80mg Take 1 Univers n 80 mg 9-21 tablet by ity of tablet 00:00: mouth at [place] [address] bedtime. Medical Branch hydroCHLORO 2021-0 Yes [id number] 25mg Take 1 Univers thiazide 25 9-21 tablet by ity of mg tablet 00:00: mouth [place] 00 every Medical morning Branch and evening. metoprolol 2021-0 Yes [id number] 100mg Take 1 Univers succinate 9-21 tablet by ity o f XL 100 mg 00:00: mouth in [facility] s 24 hr 00 the Medical tablet morning Branch and 1 tablet in the evening. irbesartan 2021-0 Yes [id number] 300mg Take 1 Univers 300 mg 9-21 tablet by ity of tablet 00:00: mouth in [place] 00 the Medical morning. Branch aspirin-dip 2021-0 Yes [id number] 1{capsu Take 1 Univers yridamole 9-21 le} capsule by ity of (AGGRENOX) 00:00: mouth in [facility] as 25-200 mg 00 the Medical per 12 hr morning Branch capsule and 1 capsule in the evening. traZODone 2021-0 Yes [id number] 50mg Take 1 U nivers 50 mg 9-21 tablet by ity of tablet 00:00: mouth at [place] [address] bedtime. Medical Branch DULoxetine 2021-0 Yes [id number] 40mg Take 2 Univers 20 mg 9-21 capsules ity of capsule 00:00: by mouth [place] 00 in the Medical morning. Branch atorvastati 2021-0 Yes [id number] 80mg Take 1 Univers n 80 mg 9-21 tablet by ity of tablet 00:00: mouth at [place] [address] bedtime. Medical Branch hydroCHLORO 2021-0 Yes [id number] 25mg Take 1 Univers thiazide 25 9-21 tablet by ity of mg tablet 00:00: mouth [place] 00 every Medical morning Branch and evening. metoprolol 2021-0 Yes [id number] 100mg Take 1 Univers succinate 9-21 tablet by ity o f XL 100 mg 00:00: mouth [facility] 00 the Medical tablet morning Branch and 1 tablet in the evening. irbesartan 0 Yes [id number] 300mg Take 1 Univers 300 mg 9-21 tablet by ity of tablet 00:00: mouth in [place] 00 the Medical morning. Branch aspirin-dip 2021-0 Yes [id number] 1{capsu Take 1 Univers yridamole 9-21 le} capsule by ity of (AGGRENOX) 00:00: mouth in [place] 25-200 mg 00 the Medical per 12 hr morning Branch capsule and 1 capsule in the evening. traZODone Yes [id number] 50mg Take 1 U nivers 50 mg 9-21 tablet by ity of tablet 00:00: mouth at [place] [address] bedtime. Medical Branch DULoxetine 2021- Yes [id number] 40mg Take 2 Univers 20 mg 9-21 capsules ity of capsule 00:00: by mouth [place] 00 in the Medical morning. Branch DULoxetine 0 Yes [id number] 40mg Take 2 Univers 20 mg 9-08 capsules ity of capsule 00:00: by mouth [place] 00 in the Medical morning. Branch DULoxetine 2021-0 2021- No [id number] 40mg Take 2 Univers 20 mg 9-08 09-21 capsules ity of capsule 00:00: 00:00 by mouth [place] 00 :00 in the Medical morning. Branch DULoxetine 2021-0 2021- No [id number] 40mg Take 2 Univers 20 mg 9-08 09-21 capsules ity of capsule 00:00: 00:00 by mouth [place] 00 :00 in the Medical morning. Branch TRAZODONE 2021-0 Yes [id number] 50mg TAKE 1 U nivers 50 mg 9-06 TABLET BY ity of tablet 00:00: MOUTH AT [place] 00 BEDTIME Medical Branch TRAZODONE 2021-0 Yes [id number] 50mg TAKE 1 U nivers 50 mg 9-06 TABLET BY ity of tablet 00:00: MOUTH AT [place] 00 BEDTIME Medical Branch TRAZODONE 2021-0 Yes [id number] 50mg TAKE 1 U nivers 50 mg 9-06 TABLET BY ity of tablet 00:00: MOUTH AT [place] 00 BEDTIME Medical Branch TRAZODONE Yes [id number] 50mg TAKE 1 U nivers 50 mg 11-09 TABLET BY ity of tablet 00:00: MOUTH AT [place] 00 BEDTIME Medical Branch TRAZODONE 0 2021- No [id number] 50mg TAKE 1 Univers 50 mg 11-09 TABLET BY ity of tablet 00:00: 00:00 MOUTH AT [place] 00 :00 BEDTIME [facility] Branch TRAZODONE 0 2021- No [id number] 50mg TAKE 1 Univers 50 mg 11-09 TABLET BY ity of tablet 00:00: 00:00 MOUTH AT [place] 00 :00 BEDTIME [facility] Branch metoprolol Yes [id number] 1 tablet Univers tartrate 8-19 with food ity of 100 mg 14:17: [place] tablet 57 Medical Branch metoprolol Yes [id number] 1 tablet Univers tartrate 8-19 with food ity of 100 mg 14:17: [place] tablet 57 [facility] Branch metoprolol Yes [id number] 1 tablet Univers tartrate 8-19 with food ity of 100 mg 14:17: [place] tablet 57 Medical Branch metoprolol Yes [id number] 1 tablet Univers tartrate 8-19 with food ity of 100 mg 14:17: [place] tablet 57 [facility] Branch metoprolol Yes [id number] 1 tablet Univers tartrate 8-19 with food ity of 100 mg 14:17: [address] Branch aspirin 325 2021-0 Yes 1 tablet Un rubi mg tablet 8-19 ity of 14:17: [address] aspirin 325 2021-0 Yes 1 tablet Un rubi mg tablet 8-19 ity of 14:17: [address] aspirin 325 2021-0 Yes 1 tablet Un rubi mg tablet 8-19 ity of 14:17: [address] aspirin 325 2021-0 Yes 1 tablet Un rubi mg tablet 8-19 ity of 14:17: [address] aspirin 325 2021-0 Yes 1 tablet Un rubi mg tablet 8-19 ity of 14:17: [address] amLODIPine 2021-0 Yes [id number] 1 tablet Univers 10 mg 8-19 ity of tablet 14:17: [place] 54 Medical Branch amLODIPine Yes [id number] 1 tablet Univers 10 mg 8-19 ity of tablet 14:17: [address] Branch amLODIPine Yes [id number] 1 tablet Univers 10 mg 8-19 ity of tablet 14:17: [address] amLODIPine Yes [id number] 1 tablet Univers 10 mg 8-19 ity of tablet 14:17: [address] amLODIPine Yes [id number] 1 tablet Univers 10 mg 8-19 ity of tablet 14:17: [address] IRBESARTAN Yes [id number] Take 1 Univers 300 mg 8-19 tablet by ity of tablet 00:00: mouth once [place] [address] daily [facility] Branch TRAZODONE Yes [id number] 50mg TAKE 1 U nivers 50 mg 8-19 TABLET BY ity of tablet 00:00: MOUTH AT [place] 00 BEDTIME Medical Branch Insulin Yes [id number] INJECT 50 U nivers Glargine 8-19 UNITS ity of (BASAGLAR 00:00: [place] KW[place]PEN 00 USLY IN Medical U-100 THE Branch INSULIN) MORNING 100 unit/mL AND 50 (3 mL) UNITS IN injection THE EVENINGBEF ORE MEALS metformin Yes [id number] 500mg Take 1 U nivers ER 500 mg 8-19 tablet by ity o f 24 hr 00:00: mouth in [place] tablet [address] [facility] Branch and 1 tablet in the evening. Take with meals. insulin Yes [id number] 10U inject 10 U nivers aspart 8-19 Units ity of U-100 00:00: under the [place] (NOVOLOG 00 skin in Medical FLEXPEN the Branch U-100 morning INSULIN) and 10 100 unit/mL Units at (3 mL) noon and injection 10 Units in the evening. inject before meals. E11.65 IRBESARTAN Yes [id number] Take 1 Univers 300 mg 8-19 tablet by ity of tablet 00:00: mouth once [place] [address] daily [facility] Branch Insulin 0 Yes [id number] INJECT 50 U nivers Glargine 8-19 UNITS ity of (BASAGLAR 00:00: [place] 00 USLY IN Medical U-100 THE Branch INSULIN) MORNING 100 unit/mL AND 50 (3 mL) UNITS IN injection THE EVENINGBEF ORE MEALS metformin Yes [id number] 500mg Take 1 U nivers ER 500 mg 8-19 tablet by ity o f 24 hr 00:00: mouth in [place] tablet the [facility] Branch and 1 tablet in the evening. Take with meals. insulin Yes [id number] 10U inject 10 U nivers aspart 8-19 Units ity of U-100 00:00: under the [place] (NOVOLOG 00 skin in [facility] the Branch U-100 morning INSULIN) and 10 100 unit/mL Units at (3 mL) noon and injection 10 Units in the evening. inject before meals. E11.65 IRBESARTAN Yes [id number] Take 1 Univers 300 mg 8-19 tablet by ity of tablet 00:00: mouth once [place] daily [facility] Insulin Yes [id number] INJECT 50 U nivers Glargine 8-19 UNITS ity of (BASAGLAR 00:00: [place] K[place] 00 USLY IN Medical U-100 THE Branch INSULIN) MORNING 100 unit/mL AND 50 (3 mL) UNITS IN injection THE EVENINGBEF ORE MEALS metformin Yes [id number] 500mg Take 1 U nivers ER 500 mg 8-19 tablet by ity o f 24 hr 00:00: mouth in [place] tablet [facility] ER and 1 tablet in the evening. Take with meals. insulin Yes [id number] 10U inject 10 U nivers aspart 8-19 Units ity of U-100 00:00: under the [place] (NOVOLOG 00 skin in [facility] the Branch U-100 morning INSULIN) and 10 100 unit/mL Units at (3 mL) noon and injection 10 Units in the evening. inject before meals. E11.65 IRBESARTAN Yes [id number] Take 1 Univers 300 mg 8-19 tablet by ity of tablet 00:00: mouth once [place] daily [facility] Insulin Yes [id number] INJECT 50 U nivers Glargine 8-19 UNITS ity of (BASAGLAR 00:00: [place] KW[place]PEN 00 USLY IN Medical U-100 THE Branch INSULIN) MORNING 100 unit/mL AND 50 (3 mL) UNITS IN injection THE EVENINGBEF ORE MEALS metformin Yes [id number] 500mg Take 1 U nivers ER 500 mg 8-19 tablet by ity o f 24 hr 00:00: mouth in [place] tablet the [facility] Branch and 1 tablet in the evening. Take with meals. insulin Yes [id number] 10U inject 10 U nivers aspart 8-19 Units ity of U-100 00:00: under the [place] [facility] U-[facility] morning INSULIN) and 10 100 unit/mL Units at (3 mL) noon and injection 10 Units in the evening. inject before meals. E11.65 IRBESARTAN Yes [id number] Take 1 Univers 300 mg 8-19 tablet by ity of tablet 00:00: mouth once [place] 00 daily [facility] Insulin Yes [id number] INJECT 50 U nivers Glargine 8-19 UNITS ity of (BASAGLAR 00:00: [place] K[place] 00 USLY IN [facility] U[address] [place] [address] Branch INSULIN) MORNING 100 unit/mL AND 50 (3 mL) UNITS IN injection THE EVENINGBEF ORE MEALS metformin Yes [id number] 500mg Take 1 U nivers ER 500 mg 8-19 tablet by ity o f 24 hr 00:00: mouth in [place] tablet the [facility] and 1 tablet in the evening. Take with meals. insulin Yes [id number] 10U inject 10 U nivers aspart 8-19 Units ity of U-100 00:00: under the [place] (NOVOLOG 00 skin in [facility] U-100 morning INSULIN) and 10 100 unit/mL Units at (3 mL) noon and injection 10 Units in the evening. inject before meals. E11.65 Insulin Yes [id number] INJECT 50 U nivers Glargine 8-19 UNITS ity of (BASAGLAR 00:00: [place] 00 USLY IN [facility] U-100 [facility] Branch INSULIN) MORNING 100 unit/mL AND 50 (3 mL) UNITS IN injection THE EVENINGBEF ORE MEALS metformin Yes [id number] 500mg Take 1 U nivers ER 500 mg 8-19 tablet by ity o f 24 hr 00:00: mouth in [place] tablet 00 the Medical morning Branch and 1 tablet in the evening. Take with meals. insulin Yes [id number] 10U inject 10 U nivers aspart 8-19 Units ity of U-100 00:00: under the [place] (NOVOLOG 00 skin in Medical FLEXPEN the Branch U-100 morning INSULIN) and 10 100 unit/mL Units at (3 mL) noon and injection 10 Units in the evening. inject before meals. E11.65 Insulin 0 Yes [id number] INJECT 50 U nivers Glargine 8-19 UNITS ity of (BASAGLAR 00:00: [place] 00 USLY IN Medical U-100 THE Branch INSULIN) MORNING 100 unit/mL AND 50 (3 mL) UNITS IN injection THE EVENINGBEF ORE MEALS metformin Yes [id number] 500mg Take 1 U nivers ER 500 mg 8-19 tablet by ity o f 24 hr 00:00: mouth in [place] tablet 00 the [facility] morning Branch and 1 tablet in the evening. Take with meals. insulin Yes [id number] 10U inject 10 U nivers aspart 8-19 Units ity of U-100 00:00: under the [place] (NOVOLOG 00 skin in Medical FLEXPEN the Branch U-100 morning INSULIN) and 10 100 unit/mL Units at (3 mL) noon and injection 10 Units in the evening. inject before meals. E11.65 IRBESARTAN 0 2022- No [id number] Take 1 Univers 300 mg 8-22 11- tablet by ity of tablet 00:00: 00:00 [place] 00 :00 daily Medical Branch IRBESARTAN 2021-0 2- No [id number] Take 1 Univers 300 mg 8-22 11- tablet by ity of tablet 00:00: 00:00 [place] 00 :00 daily Medical Branch TRAZODONE 2021-2021- No [id number] 50mg TAKE 1 Univers 50 mg 8-22 11- TABLET BY ity of tablet 00:00: 00:00 MOUTH AT [place] 00 :00 BEDTIME Medical Branch ergocalcife 0 Yes [id number] Take 1 Univers rol, 8-16 capsule by ity of vitamin d2, 00:00: mouth [place] 1,250 mcg 00 weekly. Medical (50,000 Branch unit) capsule hydroCHLORO 2022-0 Yes [id number] 25mg Take 1 Univers thiazide 25 8-16 tablet by ity of mg tablet 00:00: [place] 00 the Medical morning. Branch DULoxetine 2021-0 Yes [id number] 40mg Take 2 Univers 20 mg 8-16 capsules ity of capsule 00:00: by mouth [place] 00 in the Medical morning. Branch metoprolol 2021-0 Yes [id number] 100mg Take 1 Univers succinate 8-16 tablet by ity o f XL 100 mg 00:00: [place] 24 hr 00 the Medical tablet morning Branch and 1 tablet in the evening. ergocalcife 2022-0 Yes [id number] Take 1 Univers rol, 8-16 capsule by ity of vitamin d2, 00:00: mouth [place] 1,250 mcg 00 weekly. Medical (50,000 Branch unit) capsule hydroCHLORO 2-0 Yes [id number] 25mg Take 1 Univers thiazide 25 8-16 tablet by ity of mg tablet 00:00: [place] 00 the Medical morning. Branch DULoxetine 2021-0 Yes [id number] 40mg Take 2 Univers 20 mg 8-16 capsules ity of capsule 00:00: by mouth [place] 00 in the Medical morning. Branch metoprolol 2021-0 Yes [id number] 100mg Take 1 Univers succinate 8-16 tablet by ity o f XL 100 mg 00:00: [place] 24 [place] 00 the Medical tablet morning Branch and 1 tablet in the evening. ergocalcife 2022-0 Yes [id number] Take 1 Univers rol, 8-16 capsule by ity of vitamin d2, 00:00: mouth [place] 1,250 mcg 00 weekly. Medical (50,000 Branch unit) capsule hydroCHLORO 2-0 Yes [id number] 25mg Take 1 Univers thiazide 25 8-16 tablet by ity of mg tablet 00:00: [place] 00 the Medical morning. Branch DULoxetine 2-0 Yes [id number] 40mg Take 2 Univers 20 mg 8-16 capsules ity of capsule 00:00: by mouth [place] 00 in the Medical morning. Branch metoprolol 2-0 Yes [id number] 100mg Take 1 Univers succinate 8-16 tablet by ity o f XL 100 mg 00:00: [place] 24 [place] 00 the Medical tablet morning Branch and 1 tablet in the evening. ergocalcife 2021-0 Yes [id number] Take 1 Univers rol, 8-16 capsule by ity of vitamin d2, 00:00: mouth [place] 1,250 mcg 00 weekly. Medical (50,000 Branch unit) capsule hydroCHLORO 2021-0 Yes [id number] 25mg Take 1 Univers thiazide 25 8-16 tablet by ity of mg tablet 00:00: [place] 00 the Medical morning. Branch DULoxetine 2021-0 Yes [id number] 40mg Take 2 Univers 20 mg 8-16 capsules ity of capsule 00:00: by mouth [place] 00 in the Medical morning. Branch metoprolol 2021-0 Yes [id number] 100mg Take 1 Univers succinate 8-16 tablet by ity o f XL 100 mg 00:00: [place] 24 [place] 00 the Medical tablet morning Branch and 1 tablet in the evening. ergocalcife 2021-0 Yes [id number] Take 1 Univers rol, 8-16 capsule by ity of vitamin d2, 00:00: mouth [place] 1,250 mcg 00 weekly. Medical (50,000 Branch unit) capsule hydroCHLORO 2021-0 Yes [id number] 25mg Take 1 Univers thiazide 25 8-16 tablet by ity of mg tablet 00:00: [place] 00 the Medical morning. Branch metoprolol 2021-0 Yes [id number] 100mg Take 1 Univers succinate 8-16 tablet by ity o f XL 100 mg 00:00: [place] 24 [place] 00 the Medical tablet morning Branch and 1 tablet in the evening. ergocalcife 2021-0 Yes [id number] Take 1 Univers rol, 8-16 capsule by ity of vitamin d2, 00:00: mouth [place] 1,250 mcg 00 weekly. Medical (50,000 Branch unit) capsule ergocalcife 2021-0 Yes [id number] Take 1 Univers rol, 8-16 capsule by ity of vitamin d2, 00:00: mouth [place] 1,250 mcg 00 weekly. Medical (50,000 Branch unit) capsule hydroCHLORO 2021-0 2021- No [id number] 25mg Take 1 Univers thiazide 25 8-16 09-21 tablet by it y of mg tablet 00:00: 00:00 mouth in [place] 00 :00 the Medical morning. Branch metoprolol 0 2- No [id number] 100mg Take 1 Univers succinate 10-19 tablet by ity of XL 100 mg 00:00: 00:00 mouth in [place] 24 hr 00 :00 the Medical tablet morning Branch and 1 tablet in the evening. hydroCHLORO 2021-0 2- No [id number] 25mg Take 1 Univers thiazide 25 10-19 tablet by it y of mg tablet 00:00: 00:00 mouth in [place] 00 :00 the Medical morning. Branch metoprolol 2021-0 2021- No [id number] 100mg Take 1 Univers succinate 10-19 tablet by ity of XL 100 mg 00:00: 00:00 mouth in [place] 24 hr 00 :00 the Medical tablet morning Branch and 1 tablet in the evening. DULoxetine 2021-2021- No [id number] 40mg Take 2 Univers 20 mg 10-19 capsules ity of capsule 00:00: 00:00 by mouth [place] 00 :00 in the Medical morning. Branch ketoconazol 0 Yes SHAMPOO TO Univers e 2 % 8-11 SCALP ity of shampoo 00:00: DIRECTED [place] [facility] ketoconazol 0 Yes SHAMPOO TO Univers e 2 % 8-11 SCALP ity of shampoo 00:00: DIRECTED [place] [facility] ketoconazol 0 Yes SHAMPOO TO Univers e 2 % 8-11 SCALP ity of shampoo 00:00: DIRECTED [facility] ketoconazol 0 Yes SHAMPOO TO Univers e 2 % 8-11 SCALP ity of shampoo 00:00: DIRECTED [place] [facility] ketoconazol 0 Yes SHAMPOO TO Univers e 2 % 8-11 SCALP ity of shampoo 00:00: DIRECTED [place] [facility] ketoconazol 0 Yes SHAMPOO TO Univers e 2 % 8-11 SCALP ity of shampoo 00:00: DIRECTED [address] ketoconazol 0 Yes SHAMPOO TO Univers e 2 % 8-11 SCALP ity of shampoo 00:00: DIRECTED [place] 00 Medical Branch levoFLOXaci 2022-0 Yes 750mg Take 1 Univers n 750 mg 6-26 tablet by ity of tablet 00:00: mouth [place] 00 every 24 Medical (twenty-fo Branch ur) hours. levoFLOXaci 0 Yes 750mg Take 1 Univers n 750 mg 6-26 tablet by ity of tablet 00:00: mouth [place] 00 every 24 Medical (twenty-fo Branch ur) hours. levoFLOXaci Yes 750mg Take 1 Univers n 750 mg 6-26 tablet by ity of tablet 00:00: mouth [place] 00 every 24 Medical (twenty-fo Branch ur) hours. levoFLOXaci Yes 750mg Take 1 Univers n 750 mg 6-26 tablet by ity of tablet 00:00: mouth [place] 00 every 24 Medical (twenty-fo Branch ur) hours. levoFLOXaci Yes 750mg Take 1 [facility] n 750 mg 6-26 tablet by ity of tablet 00:00: mouth [place] 00 every 24 Medical (twenty-fo Branch ur) hours. levoFLOXaci 2021- No [id number] 750mg Take 1 [facility] n 750 mg 6-26 09-21 tablet by ity o f tablet 00:00: 00:00 mouth [place] 00 :00 every 24 Medical (twenty-fo Branch ur) hours. levoFLOXaci 2021- No [id number] 750mg Take 1 [facility] n 750 mg 6-26 09- tablet by ity o f tablet 00:00: 00:00 mouth [place] 00 :00 every 24 Medical (twenty-fo Branch ur) hours. Insulin 2021- No [id number] INJECT 40 [facility] Glargine 5-23 08-19 UNITS ity of (BASAGLAR 00:00: 00:00 SUBCUTANEO [place] KWIKPEN 00 :00 USLY IN Medical U-100 THE Branch INSULIN) MORNING 100 unit/mL AND 40 (3 mL) UNITS IN injection THE EVENINGBEF ORE MEALS amoxicillin Yes 1{tbl} Take 1 [facility] -clavulanat 5-15 tablet by ity of e 00:00: mouth 2 [place] (AUGMENTIN) 00 (two) Medical 875-125 mg times Branch per tablet daily. amoxicillin Yes 1{tbl} Take 1 [facility] -clavulanat 5-15 tablet by ity of e 00:00: mouth 2 [place] (AUGMENTIN) 00 (two) Medical 875-125 mg times Branch per tablet daily. amoxicillin Yes 1{tbl} Take 1 [facility] -clavulanat 5-15 tablet by ity of e 00:00: mouth 2 [place] (AUGMENTIN) 00 (two) Medical 875-125 mg times Branch per tablet daily. amoxicillin Yes [id number] 1{tbl} Take 1 [facility] -clavulanat 5-15 tablet by ity of e 00:00: mouth 2 [place] (AUGMENTIN) 00 (two) Medical 875-125 mg times Branch per tablet daily. amoxicillin Yes [id number] 1{tbl} Take 1 [facility] -clavulanat 5-15 tablet by ity of e 00:00: mouth 2 [place] (AUGMENTIN) 00 (two) Medical 875-125 mg times Branch per tablet daily. amoxicillin 2021- No [id number] 1{tbl} Take 1 [facility] -clavulanat 5-15 09-21 tablet by it y of e 00:00: 00:00 mouth 2 [place] (AUGMENTIN) 00 :00 (two) Medical 875-125 mg times Branch per tablet daily. amoxicillin 2021- No [id number] 1{tbl} Take 1 [facility] -clavulanat 5-15 09-21 tablet by it y of e 00:00: 00:00 mouth 2 [place] (AUGMENTIN) 00 :00 (two) Medical 875-125 mg times Branch per tablet daily. triamcinolo Yes [id number] Apply to [facility] ne 5-12 area(s) 2 ity of acetonide 00:00: (two) [place] 0.1 % 00 times Medical ointment daily. Branch Apply 2g to affected areas BID. Okay to dispense alternativ e brand covered by insurance Pyrithione Yes [id number] by scalp Univers Zinc 5-12 route ity of (DANDRUFF 00:00: daily. [place] SHAMPOO/CON 00 Apply 2g Medi ania DITIONER) 1 at least Bran ch % Sham 2x/week, leave several min, then rinse triamcinolo 2022-0 Yes [id number] Apply to Univers ne 5-12 area(s) 2 ity of acetonide 00:00: (two) [place] 0.1 % 00 times Medical ointment daily. Branch Apply 2g to affected areas BID. Okay to dispense alternativ e brand covered by insurance Pyrithione 2021-0 Yes [id number] by scalp [facility] Zinc 5-12 route ity of (DANDRUFF 00:00: daily. [place] SHAMPOO/CON 00 Apply 2g Medi ania DITIONER) 1 at least Bran ch % Sham 2x/week, leave several min, then rinse triamcinolo 2022-0 Yes [id number] Apply to Univers ne 5-12 area(s) 2 ity of acetonide 00:00: (two) [place] 0.1 % 00 times Medical ointment daily. Branch Apply 2g to affected areas BID. Okay to dispense alternativ e brand covered by insurance Pyrithione 2021-0 Yes [id number] by scalp Univers Zinc 5-12 route ity of (DANDRUFF 00:00: daily. [place] SHAMPOO/CON 00 Apply 2g Medi ania DITIONER) 1 at least Bran ch % Sham 2x/week, leave several min, then rinse triamcinolo 2-0 Yes [id number] Apply to Univers ne 5-12 area(s) 2 ity of acetonide 00:00: (two) [place] 0.1 % 00 times Medical ointment daily. Branch Apply 2g to affected areas BID. Okay to dispense alternativ e brand covered by insurance Pyrithione 2021-0 Yes [id number] by scalp [facility] Zinc 5-12 route ity of (DANDRUFF 00:00: daily. [place] SHAMPOO/CON 00 Apply 2g Medi ania DITIONER) 1 at least Bran ch % Sham 2x/week, leave several min, then rinse triamcinolo 2022-0 Yes [id number] Apply to Univers ne 5-12 area(s) 2 ity of acetonide 00:00: (two) [place] 0.1 % 00 times Medical ointment daily. Branch Apply 2g to affected areas BID. Okay to dispense alternativ e brand covered by insurance Pyrithione 2021-0 Yes [id number] by scalp [facility] Zinc 5-12 route ity of (DANDRUFF 00:00: daily. [place] SHAMPOO/CON 00 Apply 2g Medi ania DITIONER) 1 at least Bran ch % Sham 2x/week, leave several min, then rinse triamcinolo 2022-0 Yes [id number] Apply to Univers ne 5-12 area(s) 2 ity of acetonide 00:00: (two) [place] 0.1 % 00 times Medical ointment daily. Branch Apply 2g to affected areas BID. Okay to dispense alternativ e brand covered by insurance Pyrithione 0 Yes [id number] by scalp [facility] Zinc 5-12 route ity of (DANDRUFF 00:00: daily. [place] SHAMPOO/CON 00 Apply 2g Medi ania DITIONER) 1 at least Bran ch % Sham 2x/week, leave several min, then rinse triamcinolo 2022-0 Yes [id number] Apply to Univers ne 5-12 area(s) 2 ity of acetonide 00:00: (two) [place] 0.1 % 00 times Medical ointment daily. Branch Apply 2g to affected areas BID. Okay to dispense alternativ e brand covered by insurance Pyrithione 0 Yes [id number] by scalp [facility] Zinc 5-12 route ity of (DANDRUFF 00:00: daily. [place] SHAMPOO/CON 00 Apply 2g Medi ania DITIONER) 1 at least Bran ch % Sham 2x/week, leave several min, then rinse foLIC acid 0 Yes [id number] 1mg Take 1 [facility] 1 mg tablet 4-29 tablet by ity of 00:00: mouth daily. Medical Branch aspirin-dip 2021-0 Yes [id number] 1{capsu Take 1 [facility] yridamole 4-29 le} capsule by ity of (AGGRENOX) 00:00: mouth 2 [place] 25-200 mg 00 (two) Medical per 12 hr times Branch capsule daily. foLIC acid 2021-0 Yes [id number] 1mg Take 1 [facility] 1 mg tablet 4-29 tablet by ity of 00:00: mouth [place] 00 daily. Medical Branch aspirin-dip 2021-0 Yes [id number] 1{capsu Take 1 [facility] yridamole 4-29 le} capsule by ity of (AGGRENOX) 00:00: mouth 2 [place] 25-200 mg 00 (two) Medical per 12 hr times Branch capsule daily. foLIC acid 2021-0 Yes [id number] 1mg Take 1 [facility] 1 mg tablet 4-29 tablet by ity of 00:00: mouth [place] 00 daily. Medical Branch aspirin-dip 2021-0 Yes [id number] 1{capsu Take 1 [facility] yridamole 4-29 le} capsule by ity of (AGGRENOX) 00:00: mouth 2 [place] 25-200 mg 00 (two) Medical per 12 hr times Branch capsule daily. foLIC acid 2021-0 Yes [id number] 1mg Take 1 [facility] 1 mg tablet 4-29 tablet by ity of 00:00: mouth [place] 00 daily. Medical Branch aspirin-dip 2021-0 Yes [id number] 1{capsu Take 1 [facility] yridamole 4-29 le} capsule by ity of (AGGRENOX) 00:00: mouth 2 [place] 25-200 mg 00 (two) Medical per 12 hr times Branch capsule daily. foLIC acid 2021-0 Yes [id number] 1mg Take 1 [facility] 1 mg tablet 4-29 tablet by ity of 00:00: mouth [place] 00 daily. Medical Branch aspirin-dip 2021-0 Yes [id number] 1{capsu Take 1 [facility] yridamole 4-29 le} capsule by ity of (AGGRENOX) 00:00: mouth 2 [place] 25-200 mg 00 (two) Medical per 12 hr times Branch capsule daily. foLIC acid 2021-0 Yes [id number] 1mg Take 1 [facility] 1 mg tablet 4-29 tablet by ity of 00:00: mouth [place] 00 daily. Medical Branch foLIC acid 2021-0 Yes [id number] 1mg Take 1 [facility] 1 mg tablet 4-29 tablet by ity of 00:00: mouth [place] 00 daily. Medical Branch aspirin-dip 2021-0 2021- No [id number] 1{capsu Take 1 [facility] yridamole 4-29 09-21 le} capsule by ity of (AGGRENOX) 00:00: 00:00 mouth 2 [place] 25-200 mg 00 :00 (two) Medical per 12 hr times Branch capsule daily. aspirin-dip 2021-0 2022- No [id number] 1{capsu Take 1 [facility] yridamole 4-29 09-21 le} capsule by ity of (AGGRENOX) 00:00: 00:00 mouth 2 [place] 25-200 mg 00 :00 (two) Medical per 12 hr times Branch capsule daily. insulin 2021- No [id number] 10U inject 10 [facility] aspart 06-08 Units ity of U-100 00:00: 00:00 under the [place] (NOVOLOG 00 :00 skin 3 Medical FLEXPEN (three) Branch U-100 times INSULIN) daily 100 unit/mL before (3 mL) meals. injection E11.65 metformin 2021- No [id number] 500mg Take 1 [facility] ER 500 mg 06-08 tablet by ity of 24 hr 00:00: 00:00 mouth [place] tablet 00 :00 daily with Medical breakfast. Branch sennosides Yes [id number] 8.6mg Take 1 [facility] (SENOKOT) 2-02 tablet by ity o f 8.6 mg 00:00: mouth [place] tablet 00 daily. Medical Branch docusate Yes [id number] 100mg Take 1 Un rubi (COLACE) 2-02 capsule by ity o f 100 mg 00:00: mouth 2 [place] capsule 00 (two) Medical times [place] daily as needed for Constipati on. sennosides Yes [id number] 8.6mg Take 1 [facility] (SENOKOT) 2-02 tablet by ity o f 8.6 mg 00:00: mouth [place] tablet 00 daily. Medical Branch docusate Yes [id number] 100mg Take 1 [facility] rubi (COLACE) 2-02 capsule by ity o f 100 mg 00:00: mouth 2 [place] capsule 00 (two) Medical times [place] daily as needed for Constipati on. sennosides Yes [id number] 8.6mg Take 1 [facility] (SENOKOT) 2-02 tablet by ity o f 8.6 mg 00:00: mouth [place] tablet 00 daily. Medical Branch docusate Yes [id number] 100mg Take 1 Un rubi (COLACE) 2-02 capsule by ity o f 100 mg 00:00: mouth 2 [place] capsule 00 (two) Medical times [place] daily as needed for Constipati on. sennosides Yes [id number] 8.6mg Take 1 [facility] (SENOKOT) 2-02 tablet by ity o f 8.6 mg 00:00: mouth [place] tablet 00 daily. Medical Branch docusate Yes [id number] 100mg Take 1 Un rubi (COLACE) 2-02 capsule by ity o f 100 mg 00:00: mouth 2 [place] capsule 00 (two) Medical times Branch daily as needed for Constipati on. sennosides Yes [id number] 8.6mg Take 1 [facility] (SENOKOT) 2-02 tablet by ity o f 8.6 mg 00:00: mouth [place] tablet 00 daily. Medical Branch docusate Yes [id number] 100mg Take 1 Un rubi (COLACE) 2-02 capsule by ity o f 100 mg 00:00: mouth 2 [place] capsule 00 (two) Medical times Branch daily as needed for Constipati on. sennosides Yes [id number] 8.6mg Take 1 [facility] (SENOKOT) 2-02 tablet by ity o f 8.6 mg 00:00: mouth [place] tablet 00 daily. Medical Branch docusate Yes [id number] 100mg Take 1 Un rubi (COLACE) 2-02 capsule by ity o f 100 mg 00:00: mouth 2 [place] capsule 00 (two) Medical times Branch daily as needed for Constipati on. sennosides Yes [id number] 8.6mg Take 1 [facility] (SENOKOT) 2-02 tablet by ity o f 8.6 mg 00:00: mouth [place] tablet 00 daily. Medical Branch docusate Yes [id number] 100mg Take 1 Un rubi (COLACE) 2-02 capsule by ity o f 100 mg 00:00: mouth 2 [place] capsule 00 (two) Medical times Branch daily as needed for Constipati on. calcium Yes [id number] 500mg Take 1 Uni vers carbonate 2-01 tablet by ity o f (CALCIUM 00:00: mouth [place] 500) 500 mg 00 daily. Medica l calcium Branch (1,250 mg) tablet calcium Yes [id number] 500mg Take 1 [facility] vers carbonate 2-01 tablet by ity o f (CALCIUM 00:00: mouth [place] 500) 500 mg 00 daily. Medica l calcium Branch (1,250 mg) tablet calcium 2022-0 Yes [id number] 500mg Take 1 [facility] vers carbonate 2-01 tablet by ity o f (CALCIUM 00:00: mouth [place] 500) 500 mg 00 daily. Medica l calcium Branch (1,250 mg) tablet calcium 2021-0 Yes [id number] 500mg Take 1 [facility] vers carbonate 2-01 tablet by ity o f (CALCIUM 00:00: mouth [place] 500) 500 mg 00 daily. Medica l calcium Branch (1,250 mg) tablet calcium 2021-0 Yes [id number] 500mg Take 1 [facility] vers carbonate 2-01 tablet by ity o f (CALCIUM 00:00: mouth [place] 500) 500 mg 00 daily. Medica l calcium Branch (1,250 mg) tablet calcium 2021-0 Yes [id number] 500mg Take 1 [facility] vers carbonate 2-01 tablet by ity o f (CALCIUM 00:00: mouth [place] 500) 500 mg 00 daily. Medica l calcium Branch (1,250 mg) tablet calcium 2021-0 Yes [id number] 500mg Take 1 [facility] vers carbonate 2-01 tablet by ity o f (CALCIUM 00:00: mouth [place] 500) 500 mg 00 daily. Medica l calcium Branch (1,250 mg) tablet L.acid/L.ca Yes Take by Uni vers sei/B.bif/B 1-14 mouth. ity of .emperatriz/FOS 10:32: [place] (PROBIOTIC 21 Medical BLEND ORAL) Branch Multivitami Yes Take by Uni vers ns with 1-14 mouth. ity of Fluoride 10:32: [place] (MULTI-LISSETH 21 Medical MIN ORAL) Branch cranberry Yes Take by Unive rs fruit 1-14 mouth. ity of extract 10:32: [place] (CRANBERRY 21 Medical ORAL) Branch acetaminoph Yes Take by Uni vers en (TYLENOL 1-14 mouth. ity of ORAL) 10:32: [place] 21 Medical Branch L.acid/L.ca 0 Yes Take by Uni vers sei/B.bif/B 1-14 mouth. ity of .emperatriz/FOS 10:32: [place] (PROBIOTIC 21 Medical BLEND ORAL) Branch Multivitami Yes Take by Uni vers ns with 1-14 mouth. ity of Fluoride 10:32: [place] (MULTI-LISSETH 21 Medical MIN ORAL) Branch cranberry Yes Take by Univ ers fruit 1-14 mouth. ity of extract 10:32: [place] (CRANBERRY 21 Medical ORAL) Branch acetaminoph Yes Take by Uni vers en (TYLENOL 1-14 mouth. ity of ORAL) 10:32: [place] [address] Medical Branch L.acid/L.ca 0 Yes Take by Uni vers sei/B.bif/B 1-14 mouth. ity of .emperatriz/FOS 10:32: [place] (PROBIOTIC 21 Medical BLEND ORAL) Branch Multivitami Yes Take by Uni vers ns with 1-14 mouth. ity of Fluoride 10:32: [place] (MULTI-LISSETH 21 Medical MIN ORAL) Branch cranberry Yes Take by Unive rs fruit 1-14 mouth. ity of extract 10:32: [place] (CRANBERRY 21 Medical ORAL) Branch acetaminoph Yes Take by Uni vers en (TYLENOL 1-14 mouth. ity of ORAL) 10:32: [place] [address] Medical Branch L.acid/L.ca Yes Take by Uni vers sei/B.bif/B 1-14 mouth. ity of .emperatriz/FOS 10:32: [place] (PROBIOTIC 21 Medical BLEND ORAL) Branch Multivitami Yes Take by Uni vers ns with 1-14 mouth. ity of Fluoride 10:32: [place] (MULTI-LISSETH 21 Medical MIN ORAL) Branch cranberry Yes Take by Unive rs fruit 1-14 mouth. ity of extract 10:32: [place] (CRANBERRY 21 Medical ORAL) Branch acetaminoph Yes Take by Uni vers en (TYLENOL 1-14 mouth. ity of ORAL) 10:32: [place] [address] Medical Branch L.acid/L.ca 0 Yes Take by Uni vers sei/B.bif/B 1-14 mouth. ity of .emperatriz/FOS 10:32: [place] (PROBIOTIC 21 Medical BLEND ORAL) Branch Multivitami Yes Take by Uni vers ns with 1-14 mouth. ity of Fluoride 10:32: [place] (MULTI-LISSETH 21 Medical MIN ORAL) Branch cranberry Yes Take by Unive rs fruit 1-14 mouth. ity of extract 10:32: [place] (CRANBERRY 21 Medical ORAL) Branch acetaminoph Yes Take by Uni vers en (TYLENOL 1-14 mouth. ity of ORAL) 10:32: [place] 21 Medical Branch L.acid/L.ca Yes Take by Uni vers sei/B.bif/B 1-14 mouth. ity of .emperatriz/FOS 10:32: [place] (PROBIOTIC 21 Medical BLEND ORAL) Branch Multivitami Yes Take by Uni vers ns with 1-14 mouth. ity of Fluoride 10:32: [place] (MULTI-LISSETH 21 Medical MIN ORAL) Branch cranberry Yes Take by Unive rs fruit 1-14 mouth. ity of extract 10:32: [place] (CRANBERRY 21 Medical ORAL) Branch L.acid/L.ca Yes Take by Uni vers sei/B.bif/B 1-14 mouth. ity of .emperatriz/FOS 10:32: [place] (PROBIOTIC 21 Medical BLEND ORAL) Branch Multivitami Yes Take by Uni vers ns with 1-14 mouth. ity of Fluoride 10:32: [place] (MULTI-LISSETH 21 Medical MIN ORAL) Branch cranberry Yes Take by Unive rs fruit 1-14 mouth. ity of extract 10:32: [place] (CRANBERRY 21 Medical ORAL) Branch NASONEX 50 0 Yes as needed Un rubi MCG/ACTUATI 1-14 it[facility]ME 0 Yes as needed Unive rs ORAL 1-14 ity of 10:16: [place] [address] Medical Branch NASONEX 50 0 Yes as needed Un rubi MCG/ACTUATI 1-14 ity of ON NASAL 10:16: [place] SPRY 53 Medical Branch PHAZYME 2021-0 Yes as needed Unive rs ORAL 1-14 ity of 10:16: [place] 53 Medical Branch NASONEX 50 2021-0 Yes as needed Un rubi MCG/ACTUATI 1-14 ity of ON NASAL 10:16: [place] SPRY 53 Medical Branch PHAZYME 2021-0 Yes as needed Unive rs ORAL 1-14 ity of 10:16: [place] [address] Medical Branch NASONEX 50 0 Yes as needed Un rubi MCG/ACTUATI 1-14 ity of ON NASAL 10:16: [address] PHAZYME Yes as needed Unive rs ORAL 1-14 ity of 10:16: [address] NASONEX 50 Yes as needed Un rubi MCG/ACTUATI 1-14 ity of ON NASAL 10:16: [address] PHAZYME Yes as needed Unive rs ORAL 1-14 ity of 10:16: [address] NASONEX 50 Yes as needed Un rubi MCG/ACTUATI 1-14 ity of ON NASAL 10:16: [address] PHAZYME Yes as needed Unive rs ORAL 1-14 ity of 10:16: [address] NASONEX 50 Yes as needed Un rubi MCG/ACTUATI 1-14 ity of ON NASAL 10:16: [address] PHAZYME Yes as needed Unive rs ORAL 1-14 ity of 10:16: [address] atorvastati Yes [id number] 80mg Take 1 [facility] n 80 mg 1-14 tablet by ity of tablet 00:00: mouth at [place] [address] bedtime. Medical Branch pantoprazol Yes [id number] 40mg Take 1 [facility] e 40 mg EC 1-14 tablet by ity of tablet 00:00: mouth [place] 00 daily Medical before Branch breakfast. polyethylen Yes [id number] 17g Take 17 g Univers e glycol 1-14 by mouth ity of 3350 00:00: once daily [place] (MIRALAX) 00 as needed Medic al 17 for Branch gram/dose Constipati powder on. Food Yes [id number] 1{can} Take 1 Can U nivers Supplement, 1-14 by mouth 3 it y of Lactose-Shyam 00:00: (three) [place] e (ENSURE 00 times Medical HIGH daily with Branch PROTEIN) meals and liquid at bedtime. atorvastati Yes [id number] 80mg Take 1 [facility] n 80 mg 1-14 tablet by ity of tablet 00:00: mouth at [place] [address] bedtime. Medical Branch pantoprazol Yes [id number] 40mg Take 1 [facility] e 40 mg EC 1-14 tablet by ity of tablet 00:00: mouth [place] 00 daily Medical before Branch breakfast. polyethylen 2021-0 Yes [id number] 17g Take 17 g Univers e glycol 1-14 by mouth ity of 3350 00:00: once daily [place] (MIRALAX) 00 as needed Medic al 17 for Branch gram/dose Constipati powder on. Food Yes [id number] 1{can} Take 1 Can U nivers Supplement, 1-14 by mouth 3 it y of Lactose-Shyam 00:00: (three) [place] (ENSURE 00 times Medical HIGH daily with Branch PROTEIN) meals and liquid at bedtime. atorvastati Yes [id number] 80mg Take 1 [facility] n 80 mg 1-14 tablet by ity of tablet 00:00: mouth at [place] 00 bedtime. Medical Branch pantoprazol Yes [id number] 40mg Take 1 [facility] e 40 mg EC 1-14 tablet by ity of tablet 00:00: mouth [place] 00 daily Medical before Branch breakfast. polyethylen Yes [id number] 17g Take 17 g [facility] e glycol 1-14 by mouth ity of 3350 00:00: once daily [place] (MIRALAX) 00 as needed Medic al 17 for Branch gram/dose Constipati powder on. Food Yes [id number] 1{can} Take 1 Can U nivers Supplement, 1-14 by mouth 3 it y of Lactose-Shyam 00:00: (three) [place] (ENSURE 00 times Medical HIGH daily with Branch PROTEIN) meals and liquid at bedtime. atorvastati Yes [id number] 80mg Take 1 [facility] n 80 mg 1-14 tablet by ity of tablet 00:00: mouth at [place] 00 bedtime. Medical Branch pantoprazol Yes [id number] 40mg Take 1 [facility] e 40 mg EC 1-14 tablet by ity of tablet 00:00: mouth [place] 00 daily Medical before Branch breakfast. polyethylen 2021-0 Yes [id number] 17g Take 17 g [facility] e glycol 1-14 by mouth ity of 3350 00:00: once daily [place] (MIRALAX) 00 as needed Medic al 17 for Branch gram/dose Constipati powder on. Food Yes [id number] 1{can} Take 1 Can U nivers Supplement, 1-14 by mouth 3 it y of Lactose-Shyam 00:00: (three) [place] (ENSURE 00 times Medical HIGH daily with Branch PROTEIN) meals and liquid at bedtime. atorvastati 0 Yes [id number] 80mg Take 1 [facility] n 80 mg 1-14 tablet by ity of tablet 00:00: mouth at [place] 00 bedtime. Medical Branch pantoprazol 0 Yes [id number] 40mg Take 1 [facility] e 40 mg EC 1-14 tablet by ity of tablet 00:00: mouth [place] 00 daily Medical before Branch breakfast. polyethylen 2021-0 Yes [id number] 17g Take 17 g Univers e glycol 1-14 by mouth ity of 3350 00:00: once daily [place] (MIRALAX) 00 as needed Medic al 17 for Branch gram/dose Constipati powder on. Food 0 Yes [id number] 1{can} Take 1 Can U nivers Supplement, 1-14 by mouth 3 it y of Lactose-Shyam 00:00: (three) [place] (ENSURE 00 times Medical HIGH daily with Branch PROTEIN) meals and liquid at bedtime. pantoprazol 0 Yes [id number] 40mg Take 1 [facility] e 40 mg EC 1-14 tablet by ity of tablet 00:00: mouth [place] 00 daily Medical before Branch breakfast. polyethylen 2021-0 Yes [id number] 17g Take 17 g Univers e glycol 1-14 by mouth ity of 3350 00:00: once daily [place] (MIRALAX) 00 as needed Medic al 17 for Branch gram/dose Constipati powder on. Food Yes [id number] 1{can} Take 1 Can U nivers Supplement, 1-14 by mouth 3 it y of Lactose-Shyam 00:00: (three) [place] (ENSURE 00 times Medical HIGH daily with Branch PROTEIN) meals and liquid at bedtime. pantoprazol 2021-0 Yes [id number] 40mg Take 1 [facility] e 40 mg EC 1-14 tablet by ity of tablet 00:00: mouth [place] 00 daily Medical before Branch breakfast. polyethylen 2021-0 Yes [id number] 17g Take 17 g Univers e glycol 1-14 by mouth ity of 3350 00:00: once daily [place] (MIRALAX) 00 as needed Medic al 17 for Branch gram/dose Constipati powder on. Food Yes [id number] 1{can} Take 1 Can U nivers Supplement, -14 by mouth 3 it y of Lactose-Shyam 00:00: (three) [place] as e (ENSURE 00 times Medical HIGH daily with Branch PROTEIN) meals and liquid at bedtime. atorvastati 2021- No [id number] 80mg Take 1 [facility] n 80 mg 03-19 tablet by ity of tablet 00:00: 00:00 mouth at [place] 00 :00 bedtime. Medical Branch atorvastati 2021- No [id number] 80mg Take 1 [facility] n 80 mg 03-19 tablet by ity of tablet 00:00: 00:00 mouth at [place] 00 :00 bedtime. Medical Branch NIFEdipine 2020-03- No 90mg QD Take [address] [facility] (PROCARDIA- 1-10 11-10 tablet (90 L ukes XL) 90 MG 00:00: 23:59 mg total) Me dical (OSM) 24 hr 00 :00 by mouth Cent er tablet daily. metoprolol 2020-03 Yes 100mg Take [address] [facility] tartrate 1-09 mg by [facility] (LOPRESSOR) 12:41: mouth 3 Med ical 100 MG 56 (three) Center tablet times daily with meals. naproxen 2020-03 Yes 500mg Take [address] [facility] (NAPROSYN) 1-09 mg [facility] 500 MG 12:41: mouth 2 Medical tablet 56 (two) Center times daily with breakfast and dinner. ranolazine 2020-03 Yes 500mg Q.5D Take [address] [facility] [address] [facility] (RANEXA) 1-09 mg [facility] 500 MG 12 12:41: mouth 2 Medic al hr tablet 56 (two) Center times daily. irbesartan 2020-03 Yes 300mg QD Take [address] (AVAPRO) 1-09 mg by [facility] 300 MG 12:41: mouth Medical tablet 56 daily. Center atorvastati 2020-03 Yes 80mg QD Take [address] [facility] n (LIPITOR) 1-09 by mouth [facility] 80 MG 12:41: daily. Medical tablet 56 Center hydroCHLORO 2020-03 Yes 50mg QD Take [address] [facility] thiazide 1-09 by mouth [facility] (HYDRODIURI 12:41: daily . Med ical L) 25 MG 56 Center tablet metFORMIN 2020-03 Yes 1000mg Take 1,[address] [facility] (GLUCOPHAGE 1-09 mg by Yoly ) 1000 MG 12:41: mouth 2 Medic al tablet 56 (two) Center times daily with breakfast and dinner. insulin 2020-03- No 6U Q.5D Inject 6 [facility] glargine,hu 03-14 Units [facility] m.rec.anlog 09:13: 00:00 subcutaneo Medical (BASAGLAR 02 :00 usly 2 Center KWIKPEN (two) U-100 times INSULIN daily. SUBQ) insulin 2020-03 Yes 30U Q.5D Inject 30 [facility] glargine - Units [facility] (LANTUS) 00:00: subcutaneo Med ical 100 unit/mL 00 usly 2 Center syringe (two) times daily Use as directed. insulin 2020-03 No 30U Inject [address] [facility] lispro 03-14 Units [facility] (HumaLOG) 00:00: 23:59 subcutaneo M edical 100 unit/mL 00 :00 usly 3 Center injection (three) times daily before meals. bisacodyL 2020-03 No 10mg Take 2 [facility] (DULCOLAX) 03-14 tablets [facility] 5 mg EC 00:00: 23:59 (10 mg Medical tablet 00 :00 total) by Center mouth daily as needed for Constipati on for up to 30 days. HYDROcodone 2020-03 No 1{tbl} Take [address] -acetaminop 03-14 tablet by Lisa mann (NORCO 00:00: 23:59 mouth Medic al 5-325) 00 :00 every 6 Center 5-325 mg (six) per tablet hours as needed for up to 10 days. Max Daily Amount: 4 tablets ciprofloxac 2020-03 No 500mg Q.5D Take [address] [facility] [address] in HCl 03-14 tablet [facility] (CIPRO) 500 00:00: 23:59 (500 mg Me dical MG tablet 00 :00 total) by Cente r mouth 2 (two) times daily for 3 days. bisacodyL 2021-1 2021- No 10mg Place [address] [facility] (DULCOLAX) 03-14 suppositor Lisa kes 10 mg 00:00: 00:00 y (10 mg Medical suppository 00 :00 total) Center rectally daily as needed for up to 10 days. cefTRIAXone 2020-03- No 1g Q24H Inject [address] [facility] (ROCEPHIN) 03-14 intravenou Lisa kes 1 g in 00:00: 00:00 sly daily. Medi ania sodium 00 :00 Center chloride 0.9 % (NS) 100 mL (V2B) IVPB Immunizations Ordered Filled Immunization Date Status Comments [facility] e Immunization Name Name SARS-COV-2 COVID-19 2021-10-25 Completed Unive rsity of MODERNA 0.25ML 00:00:00 [place] Medi ania BOOSTER VACCINE Branch SARS-COV-2 COVID-19 2021-10-25 Completed Unive rsity of MODERNA 0.25ML 00:00:00 [place] Medi ania BOOSTER VACCINE Branch SARS-COV-2 COVID-19 2021-02-03 Completed Unive rsity of MODERNA VACCINE 00:00:00 [place] Med ical Branch SARS-COV-2 COVID-19 2021-02-03 Completed Unive rsity of MODERNA 12+ YRS 00:00:00 [place] Med ical VACCINE Branch SARS-COV-2 COVID-19 2021-02-03 Completed Unive rsity of MODERNA 12+ YRS 00:00:00 [place] Med ical VACCINE Branch SARS-COV-2 COVID-19 2021-02-03 Completed Unive rsity of MODERNA 12+ YRS 00:00:00 [place] [facility] SARS-COV-2 COVID-19 2021-02-03 Completed Unive rsity of MODERNA 12+ YRS 00:00:00 [place] [facility] SARS-COV-2 COVID-19 2021-02-03 Completed Unive rsity of MODERNA 12+ YRS 00:00:00 [place] [facility] SARS-COV-2 COVID-19 2021-02-03 Completed Unive rsity of MODERNA 12+ YRS 00:00:00 [place] [facility] SARS-COV-2 COVID-19 2020-06-02 Completed Unive rsity of MODERNA VACCINE 00:00:00 [place] [facility] SARS-COV-2 COVID-19 2020-06-02 Completed Unive rsity of MODERNA 12+ YRS 00:00:00 [place] [facility] SARS-COV-2 COVID-19 2020-06-02 Completed Unive rsity of MODERNA 12+ YRS 00:00:00 [place] [facility] SARS-COV-2 COVID-19 2020-06-02 Completed Unive rsity of MODERNA 12+ YRS 00:00:00 [place] [facility] SARS-COV-2 COVID-19 2020-06-02 Completed Unive rsity of MODERNA 12+ YRS 00:00:00 [place] [facility] SARS-COV-2 COVID-19 2020-06-02 Completed Unive rsity of MODERNA 12+ YRS 00:00:00 [place] [facility] SARS-COV-2 COVID-19 2020-06-02 Completed Unive rsity of MODERNA 12+ YRS 00:00:00 [place] [facility] SARS-COV-2 COVID-19 2020-05-05 Completed Unive rsity of MODERNA VACCINE 00:00:00 [place] [facility] SARS-COV-2 COVID-19 2020-05-05 Completed Unive rsity of MODERNA 12+ YRS 00:00:00 [place] [facility] SARS-COV-2 COVID-19 2020-05-05 Completed Unive rsity of MODERNA 12+ YRS 00:00:00 [place] [facility] SARS-COV-2 COVID-19 2020-05-05 Completed Unive rsity of MODERNA 12+ YRS 00:00:00 [place] [facility] SARS-COV-2 COVID-19 2020-05-05 Completed Unive rsity of MODERNA 12+ YRS 00:00:00 [place] [facility] SARS-COV-2 COVID-19 2020-05-05 Completed Unive rsity of MODERNA 12+ YRS 00:00:00 [place] [facility] SARS-COV-2 COVID-19 2020-05-05 Completed Unive rsity of MODERNA 12+ YRS 00:00:00 [place] [facility] Vital Signs Vital Name Observation Time Observation Value Comments Source Systolic blood 2021-11-24 20:02:00 173 mm[Hg] Un[facility] [place] [facility] Diastolic blood 2021-11-24 20:02:00 73 mm[Hg] Unive rsity of [facility] Heart rate 2021-11-24 20:02:00 69 /min [facility] [place] [facility] Respiratory rate 2021-11-24 20:02:00 18 /min [facility] ers[facility] [place] [facility] Body height 2021-11-24 20:02:00 160 cm [facility] [place] [facility] Body weight 2021-11-24 20:02:00 100.699 kg [facility] [place] [facility] BMI 2021-11-24 20:02:00 39.33 kg/m2 [facility] Oxygen saturation in 2021-11-24 20:02:00 97 /min University of Arterial blood by [place] [facility] Pulse oximetry Branch Systolic blood 2021-10-22 18:47:00 176 mm[Hg] Univer sity of [facility] Diastolic blood 2021-10-22 18:47:00 71 mm[Hg] Unive rsity of pressure [facility] Heart rate 2021-10-22 18:46:00 66 /min [facility] [place] [facility] Body height 2021-10-22 18:46:00 160 cm [facility] [place] [facility] Body weight 2021-10-22 18:46:00 101.152 kg [facility] BMI 2021-10-22 18:46:00 39.50 kg/m2 [facility] [place] [facility] Oxygen saturation in 2021-10-22 18:46:00 96 /min [facility] Arterial blood by [place] [facility] Pulse oximetry [facility] WEIGHT 2021-01-05 19:30:00 102.513 kg HEIGHT 2021-01-05 19:30:00 160 cm WEIGHT 2021-01-05 19:30:00 102.513 kg HEIGHT 2021-01-05 19:30:00 160 cm WEIGHT 2021-01-05 19:30:00 102.513 kg HEIGHT 2021-01-05 19:30:00 160 cm Systolic blood 2021-01-12 09:08:00 168 mm[Hg] [facility] Diastolic blood 2021-01-12 09:08:00 73 mm[Hg] [facility] Heart rate 2021-01-12 09:08:00 103 /min [facility] Body temperature 2021-01-12 09:08:00 36.06 Caitlin [facility] Respiratory rate 2021-01-12 09:08:00 18 /min [facility] Oxygen saturation in 2021-01-12 09:08:00 95 /min [facility] Arterial blood by Medical Ce nter Pulse oximetry Body height 2021-01-05 19:30:00 160 cm [facility] Body weight 2021-01-05 19:30:00 102.513 kg [facility] BMI 2021-01-05 19:30:00 40.03 kg/m2 [facility] Procedures Procedure Date / Time Performing Clinician Source Performed POCT HEMOGLOBIN A1C 2021-10-22 19:04:00 [facility] HEMOGLOBIN A1C 2021-10-22 18:47:00 [facility] POCT-GLUCOSE METER 2021-01-12 08:44:00 Lito [facility] CBC W/PLT COUNT & AUTO 2021-01-12 04:27:00 Jace Quintero [facility] BASIC METABOLIC PANEL 2021-01-12 04:27:00 Jace Quintero [facility] (7) [place] CBC W/PLT COUNT & AUTO 2021-01-12 04:27:00 Jace Quintero [facility] DIFFERENTIAL Center MAGNESIUM 2021-01-12 04:27:00 Jace Quintero [facility] PHOSPHORUS 2021-01-12 04:27:00 Jace Quintero [facility] POCT-GLUCOSE METER 2021-01-11 23:22:00 Lito [facility] POCT-GLUCOSE METER 2021-01-11 16:30:00 Lito, [facility] POCT-GLUCOSE METER 2021-01-11 12:31:00 Lito, [facility] POCT-GLUCOSE METER 2021-01-11 07:12:00 Lito, [facility] CBC W/PLT COUNT & AUTO 2021-01-11 03:44:00 Jace Quintero [facility] BASIC METABOLIC PANEL 2021-01-11 03:44:00 Jace Quintero [facility] () [place] CBC W/PLT COUNT & AUTO 2021-01-11 03:44:00 Jace Quintero [facility] MAGNESIUM 2021-01-11 03:44:00 Jace Quintero [facility] PHOSPHORUS 2021-01-11 03:44:00 Jace Quintero [facility] POCT-GLUCOSE METER 2021-01-10 21:44:00 Lito, [facility] POCT-GLUCOSE METER 2021-01-10 16:35:00 Lito, [facility] POCT-GLUCOSE METER 2021-01-10 11:52:00 Lito, [facility] POCT-GLUCOSE METER 2021-01-10 09:01:00 Domingo [facility] CBC W/PLT COUNT & AUTO 2021-01-10 06:40:00 Jace Quintero [facility] BASIC METABOLIC PANEL 2021-01-10 06:40:00 Jace Quintero [facility] () [place] CBC W/PLT COUNT & AUTO 2021-01-10 06:40:00 Jace Quintero [facility] Center MAGNESIUM 2021-01-10 06:40:00 Jace Quintero [facility] PHOSPHORUS 2021-01-10 06:40:00 Jace Quintero [facility] POCT-GLUCOSE METER 2021-01-09 20:59:00 Domingo [facility] POCT-GLUCOSE METER 2021-01-09 17:49:00 Abaalvaro [facility] POCT-GLUCOSE METER 2021-01-09 13:12:00 Abaalvaro [facility] POCT-GLUCOSE METER 2021-01-09 08:34:00 Abaalvaro [facility] CBC W/PLT COUNT & AUTO 2021-01-09 06:02:00 Jace Quintero [facility] BASIC METABOLIC PANEL 2021-01-09 06:02:00 Jace Quintero [facility] (7) [place] CBC W/PLT COUNT & AUTO 2021-01-09 06:02:00 Jace Quintero [facility] MAGNESIUM 2021-01-09 06:02:00 Jace Quintero [facility] PHOSPHORUS 2021-01-09 06:02:00 Jace Quintero [facility] POCT-GLUCOSE METER 2021-01-08 21:34:00 Abaalvaro [facility] POCT-GLUCOSE METER 2021-01-08 17:18:00 [facility] POCT-GLUCOSE METER 2021-01-08 13:17:00 Abaalvaro [facility] POCT-GLUCOSE METER 2021-01-08 08:43:00 Domingo [facility] CBC W/PLT COUNT & AUTO 2021-01-08 04:55:00 Jace Quintero [facility] BASIC METABOLIC PANEL 2021-01-08 04:55:00 Jace Quintero [facility] (7) [place] CBC W/PLT COUNT & AUTO 2021-01-08 04:55:00 Jace Quintero [facility] Center MAGNESIUM 2021-01-08 04:55:00 Jace Quintero [facility] PHOSPHORUS 2021-01-08 04:55:00 Jace Quintero [facility] POCT-GLUCOSE METER 2021-01-07 20:44:00 Maria G BenitezMeg [facility] POCT-GLUCOSE METER 2021-01-07 18:02:00 [facility] SARS-COV2/RT-PCR [facility] 2021-01-07 16:21:00 [facility] [place] POCT-GLUCOSE METER 2021-01-07 11:23:00 [facility] POCT-GLUCOSE METER 2021-01-07 07:34:00 Mabel Fernandezfairdealingmarlene [facility] CBC W/PLT COUNT & AUTO 2021-01-07 03:09:00 Shana Zelaya [facility] DIFFERENTIAL [facility] BASIC METABOLIC PANEL 2021-01-07 03:09:00 Jace Quintero [facility] (7) [place] CBC W/PLT COUNT & AUTO 2021-01-07 03:09:00 Jace Quintero [facility] DIFFERENTIAL Center MAGNESIUM 2021-01-07 03:09:00 Jace Quintero [facility] PHOSPHORUS 2021-01-07 03:09:00 Jace Quintero [facility] POCT-GLUCOSE METER 2021-01-06 22:01:00 Alex Fernandez [facility] MR BRAIN WITHOUT IV 2021-01-06 19:32:00 Rosio Hutch[facility] CONTRAST Center POCT-GLUCOSE METER 2021-01-06 18:31:00 Alex Fernandez [facility] Center URINE CULTURE 2021-01-06 13:59:00 Jace Quintero [facility] URINALYSIS W/ REFLEX 2021-01-06 13:59:00 Jace Quintero [facility] URINE CULTURE Center POCT-GLUCOSE METER 2021-01-06 12:36:00 Alex Fernandez [facility] 2D ECHO W/ DOPPLER 2021-01-06 10:38:00 Rosio Hutchinson [facility] (CW/PW/COLOR) Center CT BRAIN WITHOUT IV 2021-01-06 07:07:00 [facility] CONTRAST Center CTA BRAIN 2021-01-06 07:07:00 [facility] CTA CAROTID 2021-01-06 07:07:00 [facility] POCT-GLUCOSE METER 2021-01-06 07:03:00 Nenita Ivy [facility] CALCIUM, IONIZED 2021-01-06 05:51:00 [facility] W/[facility]T [facility] & AUTO 2021-01-06 04:39:00 [facility] BASIC METABOLIC PANEL 2021-01-06 04:39:00 Jace Quintero [facility] (7) Center LIPID PANEL 2021-01-06 04:39:00 Garcia [facility] CBC W/PLT COUNT & AUTO 2021-01-06 04:39:00 Jace Quintero I [facility] MAGNESIUM 2021-01-06 04:39:00 Jace Quintero [facility] PHOSPHORUS 2021-01-06 04:39:00 Jace Quintero [facility] MAGNESIUM 2021-01-06 00:15:00 Jace Quintero [facility] POTASSIUM 2021-01-06 00:15:00 Jace Quintero [facility] POCT-GLUCOSE METER 2021-01-05 22:03:00 Nenita Ivy [facility] XR SHOULDER COMPLETE 2 2021-01-05 21:25:00 Rosio Hutchinson [facility] VIEWS MIN RIGHT Center CBC W/PLT COUNT & AUTO 2021-01-05 19:30:00 [facility]OLIC PANEL 2021-01-05 19:30:00 Jace Quintero [facility] (7) Center CBC W/PLT COUNT & AUTO 2021-01-05 19:30:00 Jace Quintero [facility] DIFFERENTIAL Center MAGNESIUM 2021-01-05 19:30:00 Jace Quintero [facility] PHOSPHORUS 2021-01-05 19:30:00 Jace Quintero [facility] RPR 2021-01-05 19:30:00 [facility] ([place], [place]) VITAMIN B12 AND FOLATE 2021-01-05 19:30:00 [facility] TSH/FREE T4 IF 2021-01-05 19:30:00 [facility] INDICATED [facility] HEMOGLOBIN A1C 2021-01-05 19:30:00 [facility] [place]) HIGH SENSITIVITY 2021-01-05 19:30:00 [facility] [place] [place] TROPONIN [facility] EKG-SCANNED 2021-01-05 00:00:00 Provider, Katie [facility] Scanning [place] Plan of Care Planned Activity Planned Date Details Comments Source Future Scheduled 2021-11-04 INFLUENZA VACCINE (#1) [facility] 00:[facility]00 [code = INFLUENZA Medical Ce nter VACCINE (#1)] Future Scheduled 2021-04-[address] [facility] Test 00:00:00 measurement (procedure) [facility] [code = 91216988] Future Scheduled 2021-03-[address] [facility] 00:00:00 (12+) [code = Medical Center DEPRESSION SCREENING (12+)] Future Scheduled 2021-03-06 FALLS RISK SCREENING [facility] 00:00:00 [code = FALLS RISK Medical C enter SCREENING] Future Scheduled 2014-11-[address] [facility] Test 00:00:00 WELLNESS (YEAR 2 or Medical Center FIRST YEAR if no IPPE) [code = MEDICARE ANNUAL WELLNESS (YEAR 2 or FIRST YEAR if no IPPE)] Future Scheduled 1998 SHINGLES VACCINES ([address] [facility] 00:00:00 2) [code = SHINGLES [facility] VACCINES (1 of 2)] Future Scheduled 1967-11-26 DTAP/TDAP/TD VACCINES [facility] 00:00:00 (1 - Tdap) [code = Medical C enter DTAP/TDAP/TD VACCINES (1 - Tdap)] Future Scheduled 1966 HEPATITIS C SCREENING [facility] 00:00:00 [code = HEPATITIS C Medical Center SCREENING] Future Scheduled 1958 DIABETIC EYE EXAM [code [facility] 00:00:00 = DIABETIC EYE EXAM] Medical Center Future Scheduled [address] [facility] Test 00:00:00 examination Medical Center (regime/therapy) [code = 598137446] Future Scheduled 1958 Urine screening for [facility] 00:00:00 protein (procedure) Medical Center [code = 360449605] Future Scheduled 1954 PNEUMOCOCCAL 65+ YRS ([address] [facility] 00:00:00 - PCV) [code = Medical Cente r PNEUMOCOCCAL 65+ YRS (1 - PCV)] Future Scheduled 1949-05-25 COVID-19 VACCINE (#1) [facility] 00:00:00 [code = COVID-[address] VACCINE (#1)] Future Scheduled 1948 Screening for malignant [facility] 00:00:00 neoplasm of breast Medical C enter (procedure) [code = 792674903] Future Scheduled 1948 CT Colonography (combo) [facility] Test 00:00:00 [code = CT Colonography [facility] (combo)] Future Scheduled 1948 Screening for malignant [facility] Test 00:00:00 neoplasm of colon Medical Ce nter (procedure) [code = 635718835] Future Scheduled 1948 Screening for malignant [facility] Test 00:00:00 neoplasm of colon Medical Ce nter (procedure) [code = 898097372] Future Scheduled 1948 DXA SCAN [code = DXA [facility] 00:00:00 SCAN] [facility] Center Future Scheduled 1948 Screening for malignant [facility] Test 00:00:00 neoplasm of colon Medical Ce nter (procedure) [code = 193713878] Future Scheduled 1948 Screening for malignant [facility] Test 00:00:00 neoplasm of colon Medical Ce nter (procedure) [code = 163608829] Future Scheduled 1948 Sigmoidoscopy [code = [facility] 00:[facility]:00 Sigmoidoscopy] Medical Cente r Encounters Start End Encounter Admission Attending Care Care Encounter Source Date/Time Date/Time Type Type Clinicians Facility Department ID 2021-04-01 Outpatient 3 Hung, [facility] CVA [id number] [facility] 13:35:11 [facility] [place] 2021-04-01 Outpatient 3 [id number] [facility] REF [id number] [facility] 13:35:06 [facility] [place] 2021-04-01 Outpatient 3 [id number] [facility] REF [id number] [facility] 13:34:55 [facility] [place] 2022-02-25 2022-02-25 [facility] [id number] Univers 14:40:00 14:40:00 JAYLON [id number] [facility] 2022-02-25 2022-02-25 Outpatient [facility] [id number] Univers 14:40:00 14:40:00 JAYLON [facility] 2022-02-18 2022-02-18 Outpatient R [facility] [id number] Univers 08:45:00 08:45:00 [id number] [facility] 2022-02-18 2022-02-18 Outpatient [facility] [id number] Univers 08:45:00 08:45:00 JAYLON [facility] 2021-11-24 2021-11-24 [facility] [id number] Univers 14:40:00 15:54:49 JAYLON [facility] 2021-11-24 2021-11-24 [facility] [id number] Univers 14:40:00 15:54:49 Visit Jaylon DOMINGUEZ [id number] i ty of [facility] [id number] [id number] Va prabhu [address] 2021-11-24 2021-11-24 Outpatient R АЛЕКСАНДР [facility] [id number] Univers 14:40:00 14:40:00 JAYLON [id number] ity of [facility] 2021-11-10 2021-11-10 [facility] [id number] Univers 00:00:00 00:00:00 [facility] [id number] it y of [facility] [id number] Daniel as JAIDEN?BLEA [phone] [address] OFFICE [facility] 2021-11-10 2021-11-10 [facility] [id number] Univers 00:00:00 00:00:00 Jaylon DOMINGUEZ [id number] [id number] [id number] [address] 2021-11-10 2021-11-10 [facility] [id number] Univers 00:00:00 00:00:00 Jaylon DOMINGUEZ [id number] [id number] [id number] [address] 2021-11-08 2021-11-08 [facility] [id number] Univers 00:00:00 00:00:00 Jaylon DOMINGUEZ [id number] i [id number] [id number] [address] 2021-10-29 2021-10-29 Outpatient R [facility] [id number] Univers 09:00:00 09:00:00 JAYLON [facility]trip [facility] 2021-10-22 2021-10-22 Office [facility] [id number] Univers 13:30:00 14:35:58 [facility] [id number] it y of [place] [id number] Daniel as JAIDEN?BLEA [phone] Va prabhu LEBLANC [address] [facility] 2021-01-05 2021-01-12 Inpatient ER LITO, SHARATH [facility] Neuro ICU [id number] [facility] 18:51:00 12:41:00 2021-01-05 2021-01-12 Hospital Cata Nenitachicho Moreno [facility] [id number] 18:51:00 12:41:00 Encounter Alex Fernandez, [facility], [address], Viola Lito, Sharath 2021-01-05 2021-01-05 Travel [facility] [id number] [facility] 00:[facility]00 00:00:00 [facility] Results Test Description Test Time Test Comments Results Result Comments Source POCT HEMOGLOBIN A1C TEST 2021-10-22 19:04:00 Test Item Value Reference Range Interpretation Comme nts POCT HBA1C (test code = 4548-4) 7.9 % 4-6 A Lab Interpretation (test code = 03794-7) [facility] [id number] 18:47:00 Test Item Value Reference Range Interpretation Comments POCT HBA1C (test code = 4548-4) 11.3 % 4-6 A Lab Interpretation (test code = Abnormal 07053-9) [facility]-Glucose [id number] 08:55:56 Test Item Value Reference Range Interpretation Comments POC-Glucose Meter (test 290 mg/dL 70-110 H : TE STED AT [facility] code = 6624) [address] [place], 770 30: Hydrogen Plant Operations Manager/Techni kenzie ID = [id number] for Nadiya Alonso Lab Interpretation (test Abnormal code = 20218-7) [facility] [id number] 08:55:56 Test Item Value Reference Range Interpretation Comments POC-GLUCOSE METER 290 mg/dL 70-110 H : TESTED A T [facility] 6720 (BEAKER) (test code = [place], 1538) [address]: Hydrogen Plant Operations Manager/Techni kenzie ID = [id number] for Nadiya Fernando [id number] 05:19:28 Test Item Value Reference Range Interpretation Comments Magnesium (test code = 1.6 mg/dL 1.6-2.6 87748-4) LADARIUS (test code = LADARIUS) Hydrogen Plant Operations Manager ID - CONOR L Lab Interpretation (test Normal code = 84886-8) [facility]2021[facility]09 05:19:28 Test Item Value Reference Range Interpretation Comments Phosphorus (test code = 4.0 mg/dL 2.3-4.7 2777-1) LADARIUS (test code = LADARIUS) Hydrogen Plant Operations Manager ID - CONOR L Lab Interpretation (test Normal code = 38287-2) [facility]21-[facility]-09 05:19:28 Test Item Value Reference Range Interpretation Comments MAGNESIUM (BEAKER) (test code = 1.6 mg/dL 1.6-2.6 627) Hydrogen Plant Operations Manager ID - CONOR [id number] 05:19:28 Test Item Value Reference Range Interpretation Comments PHOSPHORUS (BEAKER) (test code = 4.0 mg/dL 2.3-4.7 604) Hydrogen Plant Operations Manager ID - CONOR LBasic Metabolic [id number] 05:19:27 Test Item Value Reference Range Interpretation Comments Sodium (test code = 133 meq/L 136-145 L 2951-2) Potassium (test code = 3.7 meq/L 3.5-5.1 2823-3) Chloride (test code = 95 meq/L 98-107 L 2075-0) CO2 (test code = 26 meq/L 22-29 8-9) BUN (test code = 24 mg/dL 7-21 H 3094-0) Creatinine (test code 0.70 mg/dL 0.57-1.25 = 2160-0) Glucose (test code = 224 mg/dL 70-105 H 2345-7) Calcium (test code = 9.1 mg/dL 8.4-10.2 37194-1) EGFR (test code = 82 mL/min/1.73 sq m ESTIMHE[place] [address]-7) NOT ACCURATE CREATININE CLEARANCE IN PREDICTING GLOMERULAR FILTRATION RATE . ESTIMATED GFR I S NOT APPLICABLE FOR DIALYSIS PATIENTS. LADARIUS (test code = LADARIUS) Hydrogen Plant Operations Manager ID - PIJ CARLOS L Lab Interpretation Abnormal (test code = 36220-8) [facility] [id number] 05:19:27 Test Item Value Reference Range Interpretation [...] 697) EGFR (BEAKER) (test 82 mL/min/1.73 ESTIMA GIGI GFR IS code = 1092) sq m NOT ACCURATE CREATININE CLEARANCE IN PREDICTING GLOMERULAR FILTRATION RATE . ESTIMATED GFR I S NOT APPLICABLE FOR DIALYSIS PATIEN TS. Hydrogen Plant Operations Manager ID - PIAYA LCBC with platelet count + automated [id number] 05:09:03 Test Item Value Reference Range Interpretation Comments WBC (test code = 6690-2) 12.0 See_Comment H [A utomated message] The system [employer] generated this result transmitted ref erence range: 3.5 - 10 .5 K/L. The refe rence range was not u sed to interpret this result as normal/abnor mal. RBC (test code = 789-8) 4.47 See_Comment [Au tomated message] The system [employer] generated this result transmitted ref erence range: 3.93 - 5 .22 M/L. The refe rence range was not u sed to interpret this result as normal/abnor mal. MCHC (test code = 786-4) 32.9 See_Comment [A utomated message] The system [employer] generated this result transmitted ref erence range: 32.2 - 3 5.5 GM/DL. The refe rence range was not u sed to interpret this result as normal/abnor mal. Hematocrit (test code = 38.6 % 34.1-44.9 4544-3) MCV (test code = 787-2) 86.4 fL 79.4-94.8 MCH (test code = 785-6) 28.4 pg 25.6-32.2 RDW (test code = 788-0) 14.4 % 11.7-14.4 Platelets (test code = 339 See_Comment [Aut omated message] 777-3) The system [employer] generated this result transmitted ref erence range: 150 - 45 0 K/CU MM. The referen ce range was not u sed to interpret this result as normal/abnor mal. MPV (test code = 9.7 fL 9.4-12.3 22015-2) nRBC (test code = 413) 0 See_Comment [Aut omated message] The system [employer] generated this result transmitted ref erence range: 0 - 0 /1 00 WBC. The refere nce range was not u sed to interpret this result as normal/abnor mal. % Neutros (test code = 68 % 429) % Lymphs (test code = 21 % 430) % Monos (test code = 6 % 431) % Eos (test code = 432) 3 % % Baso (test code = 437) 1 % # Neutros (test code = 8.09 See_Comment H [Aut omated message] 670) The system [employer] generated this result transmitted ref erence range: 1.56 - 6 .13 K/L. The refe rence range was not u sed to interpret this result as normal/abnor mal. # Lymphs (test code = 2.55 See_Comment [Auto mated message] 414) The system [employer] generated this result transmitted ref erence range: 1.18 - 3 .74 K/L. The refe rence range was not u sed to interpret this result as normal/abnor mal. # Monos (test code = 0.77 See_Comment H [Autom ated message] 415) The system [employer] generated this result transmitted ref erence range: 0.24 - 0 .36 K/L. The refe rence range was not u sed to interpret this result as normal/abnor mal. # Eos (test code = 416) 0.38 See_Comment H [Au tomated message] The system [employer] generated this result transmitted ref erence range: 0.04 - 0 .36 K/L. The refe rence range was not u sed to interpret this result as normal/abnor mal. # Baso (test code = 417) 0.08 See_Comment [A utomated message] The system [employer] generated this result transmitted ref erence range: 0.01 - 0 .08 K/L. The refe rence range was not u sed to interpret this result as normal/abnor mal. Immature 1 % 0-1 Granulocytes-Relative (test code = 2801) Lab Interpretation (test Abnormal code = 08317-6) [facility] W/PLT COUNT & AUTO [id number] 05:09:03 Test Item Value Reference Range Interpretation [...] PERCENT (BEAKER) (test code = 2801) POCT-GLUCOSE [id number] 23:33:30 Test Item Value Reference Range Interpretation Comments POC-GLUCOSE METER 118 mg/dL 70-110 H : TESTED A T [facility] 6720 (BEAKER) (test code = [facility], [facility]) [address]12: Hydrogen Plant Operations Manager/Techni kenzie ID = [id number] for Kenia Stover POCT-GLUCOSE [id number] 16:42:37 Test Item Value Reference Range Interpretation Comments POC-GLUCOSE METER 179 mg/dL 70-110 H : TESTED A T [facility] 6720 (BEAKER) (test code = [facility], 1538) 10361: Hydrogen Plant Operations Manager/Techni kenzie ID = [id number] for An derson, Nadiya POCT-GLUCOSE [id number] 12:48:21 Test Item Value Reference Range Interpretation Comments POC-GLUCOSE METER 414 mg/dL 70-110 HH : TESTED A T [facility] 6720 (BEAKER) (test code = [facility], 1538) 49610: Hydrogen Plant Operations Manager/Techni kenzie ID = [id number] for An derson, Nadiya POCT-GLUCOSE [id number] 07:23:54 Test Item Value Reference Range Interpretation Comments POC-GLUCOSE METER 307 mg/dL 70-110 H : TESTED A T [facility] 6720 (BEAKER) (test code = [place], 1538) [address]: Hydrogen Plant Operations Manager/Techni kenzie ID = [id number] for Sae field (contract)Ivone [id number] 05:34:22 Test Item Value Reference Range Interpretation Comments MAGNESIUM (BEAKER) (test code = 1.7 mg/dL 1.6-2.6 627) Hydrogen Plant Operations Manager ID - TRISH [id number] 05:34:22 Test Item Value Reference Range Interpretation Comments PHOSPHORUS (BEAKER) (test code = 3.6 mg/dL 2.3-4.7 604) Hydrogen Plant Operations Manager ID - TRISH MBASIC METABOLIC [id number] 05:34:21 Test Item Value Reference Range Interpretation [...] 697) EGFR (BEAKER) (test 91 mL/min/1.73 ESTIMA GIGI GFR IS code = 1092) sq m NOT ACCURATE CREATININE CLEARANCE IN PREDICTING GLOMERULAR FILTRATION RATE . ESTIMATED GFR I S NOT APPLICABLE FOR DIALYSIS PATIEN TS. Hydrogen Plant Operations Manager ID - TRISH MCBC W/PLT COUNT & AUTO [id number] 04:48:58 Test Item Value Reference Range Interpretation [...] PERCENT (BEAKER) (test code = 2801) POCT-GLUCOSE [id number] 21:55:36 Test Item Value Reference Range Interpretation Comments POC-GLUCOSE METER 308 mg/dL 70-110 H : TESTED A T [facility] 6720 (BEAKER) (test code = [facility], 1538) 30016: Hydrogen Plant Operations Manager/Techni kenzie ID = [id number] for Fang Tracey POCT-GLUCOSE [id number] 16:47:18 Test Item Value Reference Range Interpretation Comments POC-GLUCOSE METER 349 mg/dL 70-110 H : TESTED A T [facility] 6720 (BEAKER) (test code = [facility], 1538) 27921: Hydrogen Plant Operations Manager/Techni kenzie ID = [id number] for MIKE COLMENARESL POCT-GLUCOSE [id number] 12:07:39 Test Item Value Reference Range Interpretation Comments POC-GLUCOSE METER 429 mg/dL 70-110 HH : TESTED A T [facility] 6720 (BEAKER) (test code = [facility], 1538) 02921: Hydrogen Plant Operations Manager/Techni kenzie ID = [id number] for GERALDINE GRIFFIN, CAMI POCT-GLUCOSE [id number] 09:13:52 Test Item Value Reference Range Interpretation Comments POC-GLUCOSE METER 357 mg/dL 70-110 H : TESTED A T [facility] 6720 (BEAKER) (test code = [facility], 1538) 31057: Hydrogen Plant Operations Manager/Techni kenzie ID = [id number] for MA RTINEZ, CAMI [id number] 08:01:34 Test Item Value Reference Range Interpretation Comments PHOSPHORUS (BEAKER) (test code = 3.4 mg/dL 2.3-4.7 604) Hydrogen Plant Operations Manager ID - CONOR [id number] 07:20:33 Test Item Value Reference Range Interpretation Comments MAGNESIUM (BEAKER) (test code = 1.9 mg/dL 1.6-2.6 627) Hydrogen Plant Operations Manager ID - CONOR LBASIC METABOLIC [id number] 07:20:32 Test Item Value Reference Range Interpretation [...] 697) EGFR (BEAKER) (test 74 mL/min/1.73 ESTIMA GIGI GFR IS code = 1092) sq m NOT ACCURATE CREATININE CLEARANCE IN PREDICTING GLOMERULAR FILTRATION RATE . ESTIMATED GFR I S NOT APPLICABLE FOR DIALYSIS PATIEN TS. Hydrogen Plant Operations Manager ID - PIAYA LCBC W/PLT COUNT & AUTO [id number] 07:02:47 Test Item Value Reference Range Interpretation [...] 417) IMMATURE GRANULOCYTES-RELATIVE 1 % 0-1 PERCENT (AKER) (test code = 2801) POCT-GLUCOSE [id number] 00:19:20 Test Item Value Reference Range Interpretation Comments POC-GLUCOSE METER 390 mg/dL 70-110 H : [facility] (test code = [facility], [facility]) 51055: Hydrogen Plant Operations Manager/Techni kenzie ID = [id number] for Fagn Tracey POCT-GLUCOSE [id number] 18:02:03 Test Item Value Reference Range Interpretation Comments POC-GLUCOSE METER 390 mg/dL 70-110 H : [facility] ([facility]) (test code = [facility], 153) 59271: Hydrogen Plant Operations Manager/Techni kenzie ID = [id number] for MA RTINEZ, CAMI POCT-GLUCOSE [id number] 13:25:11 Test Item Value Reference Range Interpretation Comments POC-GLUCOSE METER 449 mg/dL 70-110 HH : Notified RN/MD: ([facility]) (test code = TESTED AT [place] [address] 153) [facility], [address]: Hydrogen Plant Operations Manager/Techni kenzie ID = [id number] for MA RTINEZ, CAMI POCT-GLUCOSE [id number] 08:48:27 Test Item Value Reference Range Interpretation Comments POC-GLUCOSE METER 347 mg/dL 70-110 H : Notified RN/MD: ([facility]) (test code = TESTED AT [place] [address] 153) [facility], [address]: Hydrogen Plant Operations Manager/Techni kenzie ID = [id number] for CAMI MATHUR CBC W/PLT COUNT & AUTO [id number] 07:45:14 Test Item Value Reference Range Interpretation [...] (BEAKER) (test code = 2801) BASIC METABOLIC [id number] 07:42:41 Test Item Value Reference Range Interpretation [...] 697) EGFR (BEAKER) (test 85 mL/min/1.73 ESTIMA GIGI GFR IS code = 1092) sq m NOT ACCURATE CREATININE CLEARANCE IN PREDICTING GLOMERULAR FILTRATION RATE . ESTIMATED GFR I S NOT APPLICABLE FOR DIALYSIS PATIEN TS. Hydrogen Plant Operations Manager ID - RAÚL [id number] 07:42:40 Test Item Value Reference Range Interpretation Comments MAGNESIUM (BEAKER) 1.7 mg/dL 1.6-2.6 Specimen slightly (test code = 627) hemolyzed Hydrogen Plant Operations Manager ID - RAÚL [id number] 07:42:40 Test Item Value Reference Range Interpretation Comments PHOSPHORUS (BEAKER) 3.6 mg/dL 2.3-4.7 Specimen slightly (test code = 604) hemolyzed Hydrogen Plant Operations Manager ID - RAÚL WPOCT-GLUCOSE [id number] 21:45:21 Test Item Value Reference Range Interpretation Comments POC-GLUCOSE METER 331 mg/dL 70-110 H : TESTED A T [facility] 6720 (BEAKER) (test code = [place], 1538) [address]: Hydrogen Plant Operations Manager/Techni kenzie ID = [id number] for Homar Russo POCT-GLUCOSE [id number] 17:30:00 Test Item Value Reference Range Interpretation Comments POC-GLUCOSE METER 299 mg/dL 70-110 H : TESTED A T [facility] 6720 (BEAKER) (test code = [facility], 153) 47[address]: Hydrogen Plant Operations Manager/Techni kenzie ID = [id number] for An Nadiya tabares POCT-GLUCOSE [id number] 13:29:42 Test Item Value Reference Range Interpretation Comments POC-GLUCOSE METER 352 mg/dL 70-110 H : TESTED A T [facility] 6720 (BEAKER) (test code = [facility], 1538) 53182: Hydrogen Plant Operations Manager/Techni kenzie ID = [id number] for Maxine Mixon POCT-GLUCOSE [id number] 08:55:09 Test Item Value Reference Range Interpretation Comments POC-GLUCOSE METER 304 mg/dL 70-110 H : TESTED A T [facility] 6720 (BEAKER) (test code = [facility], 153) 69[address]: Hydrogen Plant Operations Manager/Techni kenzie ID = [id number] for An Nadiya tabares CBC W/PLT COUNT & AUTO [id number] 07:29:43 Test Item Value Reference Range Interpretation [...] (BEAKER) (test code = 2801) BASIC METABOLIC [id number] 05:34:55 Test Item Value Reference Range Interpretation [...] 697) EGFR (BEAKER) (test 87 mL/min/1.73 ESTIMA GIGI GFR IS code = 1092) sq m NOT ACCURATE CREATININE CLEARANCE IN PREDICTING GLOMERULAR FILTRATION RATE . ESTIMATED GFR I S NOT APPLICABLE FOR DIALYSIS PATIEN TSAngy Hydrogen Plant Operations Manager ID Carmenza LOSEN [id number] 05:34:54 Test Item Value Reference Range Interpretation Comments MAGNESIUM (BEAKER) 1.5 mg/dL 1.6-2.6 L Specimen slightly (test code = 627) hemolyzed Hydrogen Plant Operations Manager ID - RAÚL [id number] 05:34:54 Test Item Value Reference Range Interpretation Comments PHOSPHORUS (BEAKER) 3.2 mg/dL 2.3-4.7 Specimen slightly (test code = 604) hemolyzed Hydrogen Plant Operations Manager ANA OLSEN WSARS-CoV2/RT-PCR (Asymptomatic ONLY)2021-01-08 00:23:58 Test Item Value Reference Range Interpretation Comments SARS-COV2/RT-PCR Negative Not Detected, (test code = Negative, See 30624-3) external report for linked test SARS-COV-2 [facility] PERFORMING LAB (test code = 20542-4) LADARIUS (test code = Negative result for this LADARIUS) test determines that SARS-CoV-2 RNA was not present in the specimen above the Limit of Detection (LOD). However, Negative results do not preclude SARS-CoV-2 infection and should not be used as the sole basis for treatment or patient management decisions. Negative results must be combined with clinical observations, patient history, and epidemiological information. A false negative result may occur if a specimen is improperly collected, transported or handled. A false negative result should be considered if patient's recent exposures or clinical presentation indicate that COVID-19 (SARS-CoV-2) is likely and diagnostic tests for other causes of illness are negative. Re-testing should be considered in cases of suspected false negatives. The limit of detection for this assay is 800 copies/mL. This SARS CoV-2 test is a real-time RT-PCR test intended for the qualitative detection of nucleic acid from SARS-CoV-2 in a nasopharyngeal swab specimen collected from individuals suspected of COVID-19 by their healthcare provider. This test has not been Food and Drug [...] is revoked under Section 564(g) of the Act. Fact Sheet for Healthcare Providers:https://www.[employer]/sites/default/f tom/product/documents/F act_Sheet_HC_Providers_L khk_PUWE-YsM-1.pdf Fact Sheet for Healthcare Patients:https://www.[employer]/sites/default/fi les/product/documents/Fa ct_Sheet_Patients_Lyra_S ARS-CoV-2.pdf Performing Laboratory:[facility], [place] [address] [place], [place] [address]ARS-COV2/RT-PCR ([facility])2021-01-08 00:23:58 Test Item Value Reference Range Interpretation Comments SARS-COV2/RT-PCR (test Negative Not Detected, Negative, code = 5661188) See external report for linked test SARS-COV-2 PERFORMING LAB [facility] (test code = 3139006) Negative result for this test determines that SARS-CoV-2 RNA was not present in the specimen above the Limit of Detection (LOD). However, Negative results do not preclude SARS-CoV-2 infection and should not be used as the sole basis for treatment or patient management decisions. Negative results must be combined with clinical observations, patient history, and [...] a nasopharyngeal swab specimen collected from individuals suspected of COVID-19 by their healthcare provider.This test [...] justifying the authorization of the emergency use ofin vitro diagnostic tests for detection and/or diagnosis of COVID-19 is terminated under Section 564(b)(2) of the Act or the EUA is revoked under Section 564(g) of the Act.Fact Sheet for Healthcare Prov iders:https://www.[employer]/sites/default/files/product/documents/Fact_Sheet_HC _Qnepwsrsz_Qdvw_YBLJ-VoJ-7.pdfFact Sheet for Healthcare Patients:https://www.[employer]/sites/default/files/product/docume nts/Ilgj_Nedic_Rxllpfhn_Xkjr_QHRP-UlL-2.pdfPerforming Laboratory:[place] [address], [place] [address]ZKMG-FAKSCFX METER 2021-01-07 20:55:22 Test Item Value Reference Range Interpretation Comments POC-GLUCOSE METER 307 mg/dL 70-110 H : TESTED A T [facility] 6720 (BEAKER) (test code = [facility], 1538) [address]: Hydrogen Plant Operations Manager/Techni kenzie ID = [id number] for Holland hamlin (contract)Geraldo POCT-GLUCOSE [id number] 18:16:42 Test Item Value Reference Range Interpretation Comments POC-GLUCOSE METER 343 mg/dL 70-110 H : TESTED A T [facility] 6720 (BEAKER) (test code = [facility] Chung [facility], 1538) [address]: Hydrogen Plant Operations Manager/Techni kenzie ID = [id number] for ESSENCE LI BOY POCT-GLUCOSE [id number] 11:38:09 Test Item Value Reference Range Interpretation Comments POC-GLUCOSE METER 307 mg/dL 70-110 H : TESTED A T [facility] 6720 (BEAKER) (test code [facility], = 1538) 97167: Hydrogen Plant Operations Manager/Techni kenzie ID = [id number] for Marie Cosby POCT-GLUCOSE [id number] 08:02:28 Test Item Value Reference Range Interpretation Comments POC-GLUCOSE METER 237 mg/dL 70-110 H : TESTED A T [facility] 6720 (BEAKER) (test code MP [facility], = 1538) [address]157: Hydrogen Plant Operations Manager/Techni kenzie ID = [id number] for Marie Cosby [id number] 03:44:24 Test Item Value Reference Range Interpretation Comments PHOSPHORUS (BEAKER) (test code = 3.9 mg/dL 2.3-4.7 604) Hydrogen Plant Operations Manager ID - TRISH [id number] 03:44:23 Test Item Value Reference Range Interpretation Comments MAGNESIUM (BEAKER) (test code = 1.7 mg/dL 1.6-2.6 627) Hydrogen Plant Operations Manager ID - TRISH MBASIC METABOLIC [id number] 03:44:23 Test Item Value Reference Range Interpretation [...] 697) EGFR (BEAKER) (test 81 mL/min/1.73 ESTIMA GIGI GFR IS code = 1092) sq m NOT ACCURATE CREATININE CLEARANCE IN PREDICTING GLOMERULAR FILTRATION RATE . ESTIMATED GFR I S NOT APPLICABLE FOR DIALYSIS PATIEN TS. Hydrogen Plant Operations Manager ID - TRISH MCBC W/PLT COUNT & AUTO [id number] 03:27:18 Test Item Value Reference Range Interpretation [...] PERCENT (BEAKER) (test code = 2801) POCT-GLUCOSE [id number] 03:23:46 Test Item Value Reference Range Interpretation Comments POC-GLUCOSE METER 180 mg/dL 70-110 H : TESTED A T [facility] 6720 (RADHA) (test code = [place], 1538) [address]: Hydrogen Plant Operations Manager/Techni kenzie ID = [id number] for NICOLE POWERS POCT-GLUCOSE [id number] 22:13:28 Test Item Value Reference Range Interpretation Comments POC-GLUCOSE METER 187 mg/dL 70-110 H : [facility] (RADHA) (test code = [place], 1538) [address]: Hydrogen Plant Operations Manager/Techni kenzie ID = [id number] for Oneyda Salas MR, BRAIN, WITHOUT [id number] 20:05:00Reason for exam:->Ischemic Stroke EvaluationMOUNT ZION CAMPUSName: BAKARI AYOUB : 1950 Sex: FFINAL REPORT MR, BRAIN, WITHOUT CONTRAST INDICATION: Unlisted Reason for ExamIschemic Stroke Evaluation TECHNIQUE: Multiplanar, multisequence MR imaging of the brain was obtained. COMPARISON: None FINDINGS:Brain parenchyma is normal in morphology. 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 Midline structures are normally developed. No restricted diffusion to s uggest recent ischemic insult. No abnormal susceptibility. Scattered T2/FLAIR hyperintense foci within the periventricular and subcortical white matter are nonspecific, however, statistically representchronic microvascular ischemic changes. No hydrocephalus. Orbits are within normal limits. No obstructive paranasal sinus disease. IMPRESSION: No acute intracranial findings Signed: Cuca Wyatt Verified Date/Time: 01/06/2021 20:05:22 2D Echo W/Doppler(CW/PW/Color)2021-01-06 15:02:04Ejection FractionSLEH ECHO HEARTLAB MKCKESSON [facility]/Microscopic + Reflex to [id number] 14:32:30 Test Item Value Reference Range Interpretation Comments Color, UA (test code Yellow = 5778-6) Clarity, UA (test Hazy code = 5767-9) Specific Fields, UA 1.026 1.001-1.035 (test code = 5811-5) pH, UA (test code = 5.5 5.0-8.0 5803-2) Protein, UA (test 20 mg/dL Negative A code = 95397-1) Glucose, UA (test >1000 mg/dL Negative A code = 365) Ketones, UA (test 60 mg/dL Negative A code = 2514-8) Bilirubin, UA (test Negative Negative code = 38860-4) Blood, UA (test code Large Negative A = 46549-6) Nitrite, UA (test Positive Negative A code = 5802-4) Leukocytes, UA (test Large Negative A code = 5799-2) Urobilinogen, UA 0.2 mg/dL 0.2-1.0 (test code = 64419-7) RBC, UA (test code = 11 See_Comment [Autom ated 57103-8) message] The system which generated this result transmit gigi reference range : /HPF. The reference range was not used to interpret this result as normal/abnormal . WBC, UA (test code = 92 See_Comment [Autom ated 5821-4) message] The system which generated this result transmit gigi reference range : /HPF. The reference range was not used to interpret this result as normal/abnormal . Bacteria, UA (test Rare code = 69687-6) Mucus (test code = Rare 8247-9) Squam Epithel, UA 1 See_Comment [Automate d (test code = 25448-6) messag e] The system which generated this result transmit gigi reference range : /HPF. The reference range was not used to interpret this result as normal/abnormal . Crystals, Urine (test None Seen code = 74716-4) Specimen Source (test code = 2795) LADARIUS (test code = LADARIUS) Hydrogen Plant Operations Manager ID - [auto]Hydrogen Plant Operations Manager ID - tech Lab Interpretation Abnormal (test code = 16852-5) [facility] [id number] 14:32:30 Test Item Value Reference Range Interpretation [...] = 1521) SOURCE(BEAKER) (test code = 2795) Hydrogen Plant Operations Manager ID - [auto]Hydrogen Plant Operations Manager ID - [id number] 13:15:40 Test Item Value Reference Range Interpretation Comments RPR (test code = 43008-3) Nonreactive Nonreactive Lab Interpretation (test code = Normal 61964-6) [facility] 13:15:40 Test Item Value Reference Range Interpretation Comments RPR SCREEN (BEAKER) (test code = Nonreactive Nonreactive 420) POCT-GLUCOSE [id number] 12:47:57 Test Item Value Reference Range Interpretation Comments POC-GLUCOSE METER 244 mg/dL 70-110 H : TESTED A T [facility] 6720 (RADHA) (test code = [place], 1538) [address]: Hydrogen Plant Operations Manager/Techni kenzie ID = [id number] for Waylon Jade POCT-GLUCOSE [id number] 07:15:12 Test Item Value Reference Range Interpretation Comments POC-GLUCOSE METER 142 mg/dL 70-110 H : TESTED A T [facility] 6720 (RADHA) (test code = [place], 1538) [address]: Hydrogen Plant Operations Manager/Techni kenzie ID = [id number] for Inge Booker CT, BRAIN, WITHOUT [id number] 07:11:00Unlisted Reason for Exam - Click Yes and Enter Reason Below->No [facility]Name: [facility]I [facility]YOUB : 1950 Sex: FFINAL REPORT CT, CAROTID, ANGIO, CT, CTANGIO BRAIN, CT, BRAIN, WITHOUT CONTRASTBRAIN CTWITHOUT CONTRAST INDICATION: Neuro deficit, acute, stroke suspected COMPARISON: None TECHNIQUE:Rapidacquisition spiral images were obtained between the aortic arch and the cranial vertex during intravenous contrast infusion to reconstruct axial images and angiographic 3D maximum intensity projections(MIP). 3-D volumetric reformatted images were created at a dedicated workstation. Precontrast imagesof the brain were also obtained. Stenosis evaluation [...] present bilaterally, likely microvascular given patient's demographics. Nomidline shift or hydrocephalus. There is no visible lundberg-white disruption. Osseous structures are intact. CTA BRAIN:Circumferential calcifications are present in the intracranial internal carotid arteries at the petrous and cavernous segments. Middle cerebral and anterior cerebral artery branches are normally perfused. Anterior communicating artery is atretic. The basilar artery is intact. Posterior circulation is unimpaired. 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 Great vessel origins are patent. Vertebral artery origins are patent. Left vertebral artery is dominant. There is no flow limitation in the major cervical vessels. Minimal atherosclerotic disease is present at the bifurcations but without focal narrowing. Nonvascular findings:Noacute findings within the limits of arterial phase imaging. IMPRESSION: Chronic involutional and ischemic changes without discernible acute intracranial abnormality. No flow limiting stenosis or major branch occlusion in the intracranial circulation. Signed: JR Figueroa Robert MDReport Verified Date/Time: 01/06/2021 07:11:22 Reading Location: [address] Neuro Reading Room CT, CTANGIO [id number] 07:11:00Unlisted Reason for Exam - Click Yes and Enter Reason Below->No [facility]Name: BRANDON AYOUBITH : 1950 Sex: FFINAL REPORT CT, CAROTID, ANGIO, CT, CTANGIO BRAIN, CT, BRAIN, WITHOUT CONTRASTBRAIN CTWITHOUT CONTRAST INDICATION: Neuro deficit, acute, stroke suspected COMPARISON: None TECHNIQUE:Rapidacquisition spiral images were obtained between the aortic arch and the cranial vertex during intravenous contrast infusion to reconstruct axial images and angiographic 3D maximum intensity projections(MIP). 3-D volumetric reformatted images were created at a dedicated workstation. Precontrast imagesof the brain were also obtained. Stenosis evaluation [...] present bilaterally, likely microvascular given patient's demographics. Nomidline shift or hydrocephalus. There is no visible lundberg-white disruption. Osseous structures are intact. CTA BRAIN:Circumferential calcifications are present in the intracranial internal carotid arteries at the petrous and cavernous segments. Middle cerebral and anterior cerebral artery branches are normally perfused. Anterior communicating artery is atretic. The basilar artery is intact. Posterior circulation is unimpaired. 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 Great vessel origins are patent. Vertebral artery origins are patent. Left vertebral artery is dominant. There is no flow limitation in the major cervical vessels. Minimal atherosclerotic disease is present at the bifurcations but without focal narrowing. Nonvascular findings:Noacute findings within the limits of arterial phase imaging. IMPRESSION: Chronic involutional and ischemic changes without discernible acute intracranial abnormality. No flow limiting stenosis or major branch occlusion in the intracranial circulation. Signed: JR Figueroa Robert MDReport Verified Date/Time: 01/06/2021 07:11:22 Reading Location: [address] Neuro Reading Room CT, CAROTID, [id number] 07:11:00Unlisted Reason for Exam - Click Yes and Enter Reason Below->No [facility]Name: BAKARI AYOUB : 1950 Sex: FFINAL REPORT CT, CAROTID, ANGIO, CT, CTANGIO BRAIN, CT, BRAIN, WITHOUT CONTRASTBRAIN CTWITHOUT CONTRAST INDICATION: Neuro deficit, acute, stroke suspected COMPARISON: None TECHNIQUE:Rapidacquisition spiral images were obtained between the aortic arch and the cranial vertex during intravenous contrast infusion to reconstruct axial images and angiographic 3D maximum intensity projections(MIP). 3-D volumetric reformatted images were created at a dedicated workstation. Precontrast imagesof the brain were also obtained. Stenosis evaluation [...] present bilaterally, likely microvascular given patient's demographics. Nomidline shift or hydrocephalus. There is no visible lundberg-white disruption. Osseous structures are intact. CTA BRAIN:Circumferential calcifications are present in the intracranial internal carotid arteries at the petrous and cavernous segments. Middle cerebral and anterior cerebral artery branches are normally perfused. Anterior communicating artery is atretic. The basilar artery is intact. Posterior circulation is unimpaired. 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 Great vessel origins are patent. Vertebral artery origins are patent. Left vertebral artery is dominant. There is no flow limitation in the major cervical vessels. Minimal atherosclerotic disease is present at the bifurcations but without focal narrowing. Nonvascular findings:Noacute findings within the limits of arterial phase imaging. IMPRESSION: Chronic involutional and ischemic changes without discernible acute intracranial abnormality. No flow limiting stenosis or major branch occlusion in the intracranial circulation. Signed: JR Figueroa Robert [facility] Verified Date/Time: 01/06/2021 07:11:22 Reading Location: [address] Neuro Reading Room Calcium, [id number] 06:41:59 Test Item Value Reference Range Interpretation Comments Calcium, Ion (test code = 1993-) 1.14 mmol/L 1.12-1.27 pH, Blood (test code = 88405-9) 7.43 [facility] [id number] 06:41:59 Test Item Value Reference Range Interpretation Comments CALCIUM IONIZED (BEAKER) (test 1.14 mmol/L 1.12-1.27 code = 698) PH, BLOOD (BEAKER) (test code = 7.43 1810) Fasting lipid [id number] 05:42:30 Test Item Value Reference Range Interpretation Comments Triglycerides (test 123 mg/dL Specimen code = 2571-8) slightly hemolyzed Cholesterol (test 101 mg/dL Specimen code = 2093-3) slightly hemolyzed HDL (test code = 41 mg/dL 2084-11) LDL Calculated (test 35 mg/dL code = 42800-3) LADARIUS (test code = Triglyceride LADARIUS) Reference Range: Low Risk <150 Borderline 150-199 High Risk 200-499 Very High Risk >=500 Cholesterol Reference Range: Low Risk <200 Borderline 200-239 High Risk >240 HDL Cholesterol Reference Range: Low Risk >=60 High Risk <40 LDL Cholesterol Reference Range: Optimal <100 Near Optimal 100-129 Borderline 130-159 High 160-189 Very High >=190 Hydrogen Plant Operations Manager ANA Aguillon [facility] [id number] 05:42:30 Test Item Value Reference Range Interpretation [...] 697) EGFR (BEAKER) (test 88 mL/min/1.73 ESTIMA GIGI GFR IS code = 1092) sq m NOT ACCURATE CREATININE CLEARANCE IN PREDICTING GLOMERULAR FILTRATION RATE . ESTIMATED GFR I S NOT APPLICABLE FOR DIALYSIS PATIEN TS. Hydrogen Plant Operations Manager ID - TRISH MLIPID [id number] 05:42:30 Test Item Value Reference Range Interpretation Comments TRIGLYCERIDES (BEAKER) 123 mg/dL Speci men slightly (test code = 540) hemolyzed CHOLESTEROL (BEAKER) 101 mg/dL Specime n slightly (test code = 631) hemolyzed HDL CHOLESTEROL (BEAKER) 41 mg/dL (test code = 976) LDL CHOLESTEROL 35 mg/dL CALCULATED (BEAKER) (test code = 633) Triglyceride Reference Range: Low Risk <150 Borderline 150-199 High Risk 200- 499 Very High Risk >=500Cholesterol Reference Range: Low Risk <200 Borderline 200-239 High Risk >240HDL Cholesterol Reference Range: Low Risk >=60 High Risk <40LDL Cholesterol Reference Range: Optimal <100 Near Optimal 100-129 Borderline 130-159 High 160-189 Very High >=190 [employer] Plant Operations Manager ID - TRISH [id number] 05:42:29 Test Item Value Reference Range Interpretation Comments MAGNESIUM (BEAKER) 2.4 mg/dL 1.6-2.6 Specimen slightly (test code = 627) hemolyzed Hydrogen Plant Operations Manager ID - TRISH [id number] 05:42:29 Test Item Value Reference Range Interpretation Comments PHOSPHORUS (BEAKER) 4.5 mg/dL 2.3-4.7 Specimen slightly (test code = 604) hemolyzed Hydro[employer] Plant Operations Manager ID - TRISH MCBC W/PLT COUNT & AUTO [id number] 05:01:08 Test Item Value Reference Range Interpretation [...] 2801) RAD, SHOULDER, COMPLETE (MIN 2 VIEWS), [id number] 03:48:00Reason for exam:- >[facility] 1950 Sex: FFINAL REPORT CLINICAL HISTORY: [...] The visualized right lung is clear. Signed: Lia Esparza [facility] Verified Date/Time: 01/06/2021 03:48:41 [id number] 01:47:26 Test Item Value Reference Range Interpretation Comments Potassium (test code = 4.2 meq/L 3.5-5.1 Speci men 2823-3) slightly hemolyzed LADARIUS (test code = LADARIUS) Hydrogen Plant Operations Manager ID - TRISH M Lab Interpretation Normal (test code = 56454-5) [id number] 01:47:26 Test Item Value Reference Range Interpretation Comments MAGNESIUM (BEAKER) 1.7 mg/dL 1.6-2.6 Specimen slightly (test code = 627) hemolyzed Hydrogen Plant Operations Manager ID - TRISH [id number] 01:47:26 Test Item Value Reference Range Interpretation Comments POTASSIUM (BEAKER) 4.2 meq/L 3.5-5.1 Specimen slightly (test code = 379) hemolyzed Hydrogen Plant Operations Manager ID - TRISH MPOCT-GLUCOSE [id number] 22:16:03 Test Item Value Reference Range Interpretation Comments POC-GLUCOSE METER 215 mg/dL 70-110 H : TESTED A T BSC 6720 (BEAKER) (test code = KIANA HEALY [place], 1538) 73336: Hydrogen Plant Operations Manager/Techni kenzie ID = [id number] for Inge Booker TSH/Free T4 If [id number] 20:35:33 Test Item Value Reference Range Interpretation Comments TSH (test code = 1.104 See_Comment [Automated 27615-6) message] The system which generated this result transmit gigi reference range : 0.350 - 4.940 uIU/mL. The reference range was not used to interpret this result as normal/abnormal . LADARIUS (test code = LADARIUS) Hydrogen Plant Operations Manager ID - ADMIN Lab Interpretation Normal (test code = 12030-6) [facility] HospitalVitamin B12 and [id number] 20:35:33 Test Item Value Reference Range Interpretation Comments Vitamin B12 (test 756 pg/mL 213-816 code = 2132-9) Folate (test code = 13.50 ng/mL See_Comment [Automa gigi 2284-8) message] The system which generated this result transmit gigi reference range : >=7.00. The reference range was not used to interpret this result as normal/abnormal . LADARIUS (test code = LADARIUS) Hydrogen Plant Operations Manager ID - ADMIN Lab Interpretation Normal (test code = 62989-0) [facility] HospitalTSH/FREE T4 IF [id number] 20:35:33 Test Item Value Reference Range Interpretation Comments THYROID STIMULATING HORMONE 1.104 uIU/mL 0.350-4.940 (BEAKER) (test code = 772) Hydro[employer] Plant Operations Manager ID - ADMINVITAMIN B12 AND [id number] 20:35:33 Test Item Value Reference Range Interpretation Comments VITAMIN B12 756 pg/mL 213-816 (BEAKER) (test code = 774) FOLATE (BEAKER) 13.50 ng/mL See_Comment [Automated message] (test code = 362) The system which generated this result transmitted ref erence range: >=7.00. The reference range was not used to interpr et this result as normal/abnormal . Hydrogen Plant Operations Manager ID - ADMINHemoglobin [id number] 20:20:55 Test Item Value Reference Range Interpretation Comments Hemoglobin A1C (test code = 4548-4) 9.0 % 4.3-6.1 H Lab Interpretation (test code = Abnormal 93280-6) [facility] HospitalHEMOGLOBIN [id number] 20:20:55 Test Item Value Reference Range Interpretation Comments HEMOGLOBIN A1C (BEAKER) (test code = 9.0 % 4.3-6.1 H 368) High Sensitivity Troponin I ([facility] Only)2021-01-05 20:05:30 Test Item Value Reference Range Interpretation Comments Troponin I HS (test <4 See_Comment [Automa gigi code = 20963-1) message] The system which generated this result transmitted reference range : <=17 pg/ml. The reference range was not used to interpret this result as normal/abnormal . LADARIUS (test code = Hydrogen Plant Operations Manager ID - LADARIUS) ADMINThe TIMBER TREATMENT PLANT OPERATOR STAT High Sensitivity Troponin-I results should be used in conjunction with other diagnostic information such as ECG, clinical observations and information, and patient symptoms to aid in the diagnosis of [place]. Lab Interpretation Normal (test code = 23085-2) [facility]ENSITIVITY TROPONIN [id number] 20:05:30 Test Item Value Reference Range Interpretation Comments HIGH SENSITIVITY < pg/ml See_Comment [Automated message] TROPONIN I (test code = The system which 3447981) generated this result transmitted ref erence range: <=17. Th e reference range was not used to interpr et this result as normal/abnormal . Hydrogen Plant Operations Manager ID - ADMINThe TIMBER TREATMENT PLANT OPERATOR STAT High Sensitivity Troponin-I results should be used in conjunction with other diagnostic information such as ECG, clinical observations and information, and patientsymptoms to aid in the diagnosis of [place]. [id number] 20:01:52 Test Item Value Reference Range Interpretation Comments PHOSPHORUS (BEAKER) (test code = 7.2 mg/dL 2.3-4.7 H 604) Hydrogen Plant Operations Manager ID - [id number] 20:01:51 Test Item Value Reference Range Interpretation Comments MAGNESIUM (BEAKER) (test code = 1.1 mg/dL 1.6-2.6 L 627) Hydrogen Plant Operations Manager ID - ADMINBASIC METABOLIC [id number] 20:01:50 Test Item Value Reference Range Interpretation [...] 697) EGFR (BEAKER) (test 93 mL/min/1.73 ESTIMA GIGI GFR IS code = 1092) sq m NOT ACCURATE CREATININE CLEARANCE IN PREDICTING GLOMERULAR FILTRATION RATE . ESTIMATED GFR I S NOT APPLICABLE FOR DIALYSIS PATIEN TS. Hydrogen Plant Operations Manager ID - ADMINCBC W/PLT COUNT & AUTO [id number] 19:37:16 Test Item Value Reference Range Interpretation [...] % 0-1 PERCENT (BEAKER) (test code = 2936)
[2021-12-02 08:52] LABS: Protime INR 0.87
[2021-12-02] MEDS ORDERED: ONDANSETRON 4 MG/2 ML VIAL ONE (09:05)
[2021-12-02 09:10] LABS: Absolute Lymphocytes (CBC) 1.6 K/uL (0.7-4.9); Hematocrit 33.9 % (36.0-45.0); MCV 84.5 fL (80-100); MPV 7.5 fL (7.6-11.3); RBC Red Blood Cell Count 4.01 M/uL (3.86-4.86)
--- NOTE | 2021-12-02 09:11 | RAD REPORT ---
EXAM DESCRIPTION: RAD - Chest Single View - 12/02/2021 8:51 am CLINICAL HISTORY: CHEST PAIN COMPARISON: Chest Single View dated 02/23/2021; Chest Single View dated 02/06/2021; Chest Single View dated 01/05/2021; Chest Single View dated 10/22/2020 FINDINGS: Lines: None. Lungs: No evidence of edema or pneumonia. Pleural: No significant pleural effusions or pneumothorax. Cardiac: The heart size is within normal limits. Mediastinum: Within normal limits. Bones: No acute fractures. Other: None IMPRESSION: No acute cardiopulmonary disease.
[2021-12-02 09:29] LABS: ALT/SGPT 24 U/L (12-78); AST/SGOT 10 U/L (15-37); Albumin 2.9 g/dL (3.4-5.0); Alkaline Phosphatase 77 U/L (45-117); BUN Blood Urea Nitrogen 21 mg/dL (7-18); Bicarbonate 32 mmol/L (21-32); Bilirubin Total 0.3 mg/dL (0.2-1.0); Glomerular Filtration Rate 69 ml/min (=/>90); Glucose Level 345 mg/dL (74-106); Magnesium 1.7 mg/dL (1.8-2.4); NT PRO-BNP 88 pg/mL (<125); Potassium 3.7 mmol/L (3.5-5.1); Protein, Total 7.1 g/dL (6.4-8.2); Sodium Level 135 mmol/L (136-145); Troponin High Sensitivity 7.7 pg/mL (<58.9)
[2021-12-02 09:30] LABS: Bilirubin Direct < 0.1 mg/dL (0-0.2)
--- NOTE | 2021-12-02 15:10 | EDPHYS ---
Physician Documentation [facility] Name: Fela Ayoub Age: 71 yrs Sex: Female : 1950 Arrival Date: 12/02/2021 Time: 08:14 Bed 6 Private MD: ED Physician Tejinder Bashir HPI: 12/02 08:27 This 71 yrs old Female presents to ER via Ambulatory with complaints of Chest Pain, pm1 Nausea. 08:27 The patient or guardian reports chest pain that is located primarily in the mid-sternal pm1 area. Onset: this morning, at 06:30. The pain does not radiate. Associated signs and symptoms: Pertinent positives: nausea, palpitations, shortness of breath, vomiting, Pertinent negatives: abdominal pain, diaphoresis, dizziness, headache. The chest pain is described as sharp, stabbing. Duration: The patient or guardian reports a single episode, that is now resolved, that lasted 30 minute(s). Modifying factors: The symptoms are alleviated by nothing. the symptoms are aggravated by nothing. Severity of pain: in the emergency department the pain has resolved. The patient has experienced similar episodes in the past, multiple times, symptoms and presentation are the same except worse today. The patient has not recently seen a physician, has an appointment scheduled, with Dr Jurado today at 1000. Patient was getting breakfast ready at 0630 and she started having nausea, went to the restroom and started dry heaving. Then patient reports chest pain, felt like two area of sharp stabbing chest pain in the middle of her chest that resolved over 30 minutes with shortness of breath. All symptoms resolved except for her current symptom of slight nausea. Historical: - Allergies: 08:30 Hydrocodone-Acetaminophen; hallucination; ss 08:30 Iodine; ss 08:30 Plavix; ss - PMHx: 08:30 Diabetes - IDDM; High Cholesterol; Hypertension; squamous cell carcinoma; ss - PSHx: 08:30 cardiac stents; section; Cholecystectomy; Coronary artery bypass graft; Total ss abdominal hysterectomy; ROS: 08:34 Constitutional: Negative for fever, chills, and weight loss. pm1 08:34 Eyes: Negative for injury, pain, redness, and discharge, ENT: Negative for injury, pain, and discharge. 08:34 Back: Negative for injury and pain, MS/Extremity: Negative for injury and deformity, Skin: Negative for injury, rash, and discoloration, Neuro: Negative for headache, weakness, numbness, tingling, and seizure. 08:34 Cardiovascular: Positive for chest pain, of the mid-sternal area, Negative for edema, palpitations. 08:34 Respiratory: Positive for shortness of breath, Negative for cough. 08:34 Abdomen/GI: Positive for nausea and vomiting, Negative for abdominal pain, diarrhea. 08:34 All other systems are negative. Exam: 08:34 Constitutional: This is a well developed, well nourished patient who is awake, alert, pm1 and in no acute distress. Head/Face: Normocephalic, atraumatic. 08:34 Back: No spinal tenderness. No costovertebral tenderness. Full range of motion. Skin: Warm, dry with normal turgor. Normal color with no rashes, no lesions, and no evidence of cellulitis. MS/ Extremity: Pulses equal, no cyanosis. Neurovascular intact. Full, normal range of motion. 08:34 Chest/axilla: Exam negative for acute changes, Inspection: no acute changes, Palpation: no acute changes. 08:34 Cardiovascular: Exam negative for acute changes, Rate: normal, Rhythm: regular, Pulses: no pulse deficits are appreciated, Heart sounds: normal, normal S1and S2, Edema: is not appreciated. 08:34 Respiratory: Exam negative for acute changes, respiratory distress, shortness of breath, Breath sounds: are clear throughout. 08:34 Abdomen/GI: Exam negative for acute changes, Inspection: abdomen appears normal, Palpation: abdomen is soft and non-tender, in all quadrants. 08:34 Neuro: Exam negative for acute changes, Orientation: is normal, Mentation: is normal, Motor: is normal, moves all fours. Vital Signs: 08:26 BP 169 / 92; Pulse 72; Resp 17; Pulse Ox 99% ; Pain 0/10; ss 13:00 BP 148 / 86; Pulse 77; Resp 17; Pain 0/10; jh6 15:00 BP 156 / 80; Pulse 76; Resp 17; Pulse Ox 99% ; Pain 0/10; jh6 MDM: 08:18 Patient medically screened. pm1 08:54 Data reviewed: vital signs. Data interpreted: Pulse oximetry: on room air is 99 %. pm1 Interpretation: normal. 10:31 Physician consultation: Reginaldo Jurado MD was contacted at 10:31, regarding admission, pm1 consult, patient's condition, impression by Dr. Jurado is gastric and patient can follow up in the office on Monday at 1300. Informed him I will repeat troponin in the ER prior to disposition. 10:54 ED course: Discussed with patient and discussion with Dr. Jurado and plan of pm1 care in ER for repeat troponin prior to disposition. 15:07 Counseling: I had a detailed discussion with the patient and/or guardian regarding: the pm1 historical points, exam findings, and any diagnostic results supporting the discharge/admit diagnosis, lab results, the need for outpatient follow up, to return to the emergency department if symptoms worsen or persist or if there are any questions or concerns that arise at home. 12/02 08:27 Order name: Basic Metabolic Panel; Complete Time: 09:31 pm12/02 08:27 Order name: CBC with Diff; Complete Time: 09:14 12/02 08:27 Order name: LFT's; Complete Time: : pm12/02 08:27 Order name: Magnesium; Complete Time: 09:31 pm12/02 08:27 Order name: NT PRO-BNP; Complete Time: : pm12/02 08:27 Order name: PT-INR; Complete Time: 09:14 12/02 08:27 Order name: Troponin HS; Complete Time: 09:12/02 08:27 Order name: XRAY Chest (1 view); Complete Time: 09:14 12/02 08:27 Order name: EKG; Complete Time: :12/02 08:27 Order name: Cardiac monitoring; Complete Time: 08:34 pm12/02 08:27 Order name: EKG - Nurse/Tech; Complete Time: 08:34 pm12/02 13:12 Order name: Troponin High Sensitivity; Complete Time: 15:07 pm12/02 08:27 Order name: IV Saline Lock; Complete Time: 08:34 pm12/02 08:27 Order name: Labs collected and sent; Complete Time: 08:33 pm12/02 08:27 Order name: O2 Per Protocol; Complete Time: 08:33 pm12/02 08:27 Order name: O2 Sat Monitoring; Complete Time: 08:33 pm1 12/02 08:54 Order name: Labs - recollect needed: please recollect CBC and Basic; Complete Time: em1 09:16 12/02 13:59 Order name: Labs - recollect needed: Recollect Troponin; Complete Time: 15:24 ss EC:31 Rate is 65 beats/min. Rhythm is regular, Normal Sinus Rhythm with 1st degree heart pm1 block. QRS [place] is Normal. QRS interval is normal. QT interval is normal. No Q waves. T waves are Normal. No ST changes noted. Clinical impression: sinus rhythm with 1st degree AV block. Administered Medications: 09:17 Drug: Zofran (Ondansetron) 4 mg Route: IVP; Site: right antecubital; [facility] 15:24 Drug: Magnesium 400 mg Route: PO; [facility] Disposition: 15:52 PA/[facility]'s history reviewed, patient interviewed, and examined. I agree with assessment jr and care plan and confirm the diagnosis (es) above. Attestation: The patient's history, exam findings, diagnostics, and a summary of any interventions or procedures was reviewed in detail with Juanjose Spann NP. Disposition Summary: 12/02/21 15:09 Discharge Ordered Location: Home pm1 Problem: new pm1 Symptoms: have improved pm1 Condition: Stable pm1 Diagnosis - Chest pain, unspecified pm1 Followup: pm1 - With: Emergency Department - When: As needed - Reason: Worsening of condition Followup: pm1 - With: Reginaldo Jurado MD - When: 12/06/2021 - Reason: Recheck today's complaints, Continuance of care, Re-evaluation by your physician Discharge Instructions: - Discharge Summary Sheet pm1 - Nonspecific Chest Pain, Adult pm1 Forms: - Medication Reconciliation Form pm1 - Thank You Letter pm1 - Antibiotic Education pm1 - Prescription Opioid Use pm1 Signatures: Dispatcher [employer] EDMS Malcolm Sneed 1 Zora Lin RN RN ss Marinas, Patrick, NP [facility] pm1 Caitie Oliveros RN RN [facility] Tejinder Bashir MD MD jr
--- NOTE | 2021-12-02 15:10 | ER ---
Nurse's Notes [facility] Name: Fela Ayoub Age: 71 yrs Sex: Female : 1950 Arrival Date: 12/02/2021 Time: 08:14 Bed 6 Private MD: Diagnosis: Chest pain, unspecified Presentation: 12/02 08:26 Chief complaint: Patient states: "I was sitting there making coffee and I got really ss nauseous. I ran to the bathroom and started dry heaving. My chest started hurting. It doesn't hurt anymore, but these episodes having been occurring every few days for the past few months." Pt states that this episode this morning has been the worse yet. Coronavirus screen: Client denies travel out of the [place] in the last 14 days. Ebola Screen: Patient denies exposure to infectious person. Patient denies travel to an Ebola-affected area in the 21 days before illness onset. Initial Sepsis Screen: Does the patient meet any 2 criteria? No. Patient's initial sepsis screen is negative. Does the patient have a suspected source of infection? No. Patient's initial sepsis screen is negative. Risk Assessment: Do you want to hurt yourself or someone else? Patient reports no desire to harm self or others. Onset of symptoms was December 02, 2021. 08:26 Method Of Arrival: Ambulatory 08:26 Acuity: ALE 2 ss Historical: - Allergies: 08:30 Hydrocodone-Acetaminophen; hallucination; ss 08:30 Iodine; ss 08:30 Plavix; ss - PMHx: 08:30 Diabetes - IDDM; High Cholesterol; Hypertension; squamous cell carcinoma; ss - PSHx: 08:30 cardiac stents; section; Cholecystectomy; Coronary artery bypass graft; Total ss abdominal hysterectomy; Screenin:46 Abuse screen: Denies threats or abuse. Denies injuries from another. Nutritional jh6 screening: No deficits noted. Tuberculosis screening: No symptoms or risk factors identified. Fall Risk IV access (20 points). Assessment: 08:46 General: Appears in no apparent distress. Behavior is calm, cooperative. Pain: Denies 6 pain. Complains of pain in anterior aspect of left upper chest, xiphoid area and mid-sternal area Pain does not radiate. Pain currently is 0 out of 10 on a pain scale. at worst was 6 out of 10 on a pain scale. Quality of pain is described as throbbing, Pain began suddenly, 1 hour ago. Is intermittent, episodic. Cardiovascular: No deficits noted. Reports chest pain, nausea, Capillary refill < 3 seconds Clubbing of nail beds is absent JVD is absent Rhythm is regular. 10:00 Reassessment: Patient and/or family updated on plan of care and expected duration. Pain jh6 level reassessed. Patient is alert, oriented x 3, equal unlabored respirations, skin warm/dry/pink. pt resting without pain or complaint. waiting for provider to speak with Dr Brenner. 11:00 Reassessment: No changes from previously documented assessment. Patient and/or family jh6 updated on plan of care and expected duration. Pain level reassessed. Patient is alert, oriented x 3, equal unlabored respirations, skin warm/dry/pink. 12:00 Reassessment: No changes from previously documented assessment. Patient is alert, jh6 oriented x 3, equal unlabored respirations, skin warm/dry/pink. waiting to 1300 to repeat Cardiac Enzymes and if normal pt will be discharged with follow up with Dr Brenner. 13:15 Reassessment: Patient and/or family updated on plan of care and expected duration. Pain jh6 level reassessed. Patient is alert, oriented x 3, equal unlabored respirations, skin warm/dry/pink. blood sent to lab, waiting results. pt resting and was able to eat lunch without nausea or pain in chest. Patient denies pain at this time. 15:43 Reassessment: Patient is alert, oriented x 3, equal unlabored respirations, skin jh6 warm/dry/pink. second set of enzymes negative, waiting for provider to speak with pt. pt having no complaints at this time. Vital Signs: 08:26 BP 169 / 92; Pulse 72; Resp 17; Pulse Ox 99% ; Pain 0/10; ss 13:00 BP 148 / 86; Pulse 77; Resp 17; Pain 0/10; jh6 15:00 BP 156 / 80; Pulse 76; Resp 17; Pulse Ox 99% ; Pain 0/10; jh6 ED Course: 08:14 Patient arrived in ED. rg4 08:16 Juanjose Spann NP is PHCP. pm1 08:16 Tejinder Bashir MD is Attending Physician. pm1 08:17 Caitie Oliveros, RN is Primary Nurse. jh6 08:30 Triage completed. ss 08:30 Arm band placed on right wrist. ss 08:48 Placed in gown. Bed in low position. Call light in reach. Side rails up X 1. Client jh6 placed on continuous cardiac and pulse oximetry monitoring. NIBP monitoring applied. surveillance system monitor on. 08:48 No provider procedures requiring assistance completed. Inserted saline lock: 20 gauge jh6 in left antecubital area, using aseptic technique. Blood collected. 08:53 XRAY Chest (1 view) In Process Unspecified. EDMS 15:08 Reginaldo Jurado MD is Referral Physician. pm1 15:20 IV discontinued, intact, bleeding controlled, No redness/swelling at site. Pressure jh6 dressing applied. Administered Medications: 09:17 Drug: Zofran (Ondansetron) 4 mg Route: IVP; Site: right antecubital; jh6 15:24 Drug: Magnesium 400 mg Route: PO; 6 Medication: 08:49 VIS not applicable for this client. jh6 Outcome: 15:09 Discharge ordered by . pm1 15:20 Discharged to home ambulatory. jh6 15:20 Condition: good 15:20 Discharge instructions given to Instructed on Demonstrated understanding of instructions, follow-up care. 15:45 Patient left the ED. 6 Signatures: Dispatcher [employer] EDDE Zora Lin RN RN Juanjose Spann, UNDERCOAT SPRAYER UNDERCOAT SPRAYER pm1 Shira Dutton rg4 Caitie Oliveros RN RN 6
[2021-12-02] MEDS ORDERED: MAGNESIUM OXIDE 400 MG TAB ONE (15:19)
--- NOTE | 2021-12-03 06:25 | EKG ---
Test Date: 2021-12-02 Test Time: 08:23:54 Adult Manager: MEASUREMENT RESULTS: Intervals: Rate: 65 PA: 236 QRSD: 96 QT: 418 QTc: 434 [place]: P: 43 PA: 236 QRS: 36 T: 6 INTERPRETIVE STATEMENTS: Sinus rhythm with 1st degree AV block Otherwise normal ECG Compared to ECG 02/06/2021 09:03:43 Right-axis deviation no longer present Electronically Signed On 12-03-21 06:24:17 CDT by Reginaldo Jurado
[2021-12-03 19:48] VITALS: O2SAT 99
[2021-12-03 20:04] VITALS: BP 156/80
== END 2021-12-02 15:45 | disposition home or self-care (01) ==
LOC: ER 08:11
DX: R07.89 Other chest pain (principal); R11.2 Nausea with vomiting, unspecified; E11.9 Type 2 diabetes mellitus without complications; I10 Essential (primary) hypertension; Z95.1 Presence of aortocoronary bypass graft; Z95.818 Presence of other cardiac implants and grafts; Z88.5 Allergy status to narcotic agent; Z88.8 Allergy status to other drugs, medicaments and biological substances
CPT/HCPCS: 93005; 85025; 80048; 36415; 83735; 85610; 80076; 84484 ×2; 83880; 71045; 96374; 99284; J2405

== ENCOUNTER → 2023-03-16 | Emergency (ER) | payer OTHER ==
[~2023-03-16] MED LIST changes: -ALTEPLASE 100 MG/100 ML VIAL (For stroke) IV SCH; +FAMOTIDINE 20 MG/2 ML VIAL IV ONE; -LABETALOL 20 MG/4ML SYRINGE IV SCH; +LIDOCAINE 1% 20 ML MDV ONE; -NA CHLORIDE 0.9% IV SCH; -NICARDIPINE HCL IV SCH; +NS 0.9% VIAL 10 ML ONE; -ONDANSETRON 4 MG/2 ML VIAL IV SCH; +ONDANSETRON 4 MG/2 ML VIAL ONE; +POTASSIUM 25 MEQ EFFERV TAB ONE
[2023-03-16 17:25] LABS: Absolute Lymphocytes (CBC) 2.4 K/uL (0.7-4.9); Hematocrit 32.3 % (36.0-45.0); Lymphocytes % 24.6 % (15.3-44.8); MCV 80.7 fL (80-100); MPV 7.1 fL (7.6-11.3); Platelets 464 thou/uL (152-406)
[2023-03-16 17:35] LABS: Potassium 3.2 mEq/L (3.5-5.1)
--- NOTE | 2023-03-16 18:40 | RAD REPORT ---
EXAM DESCRIPTION: CT - [id number] - 03/16/2023 5:56 pm CLINICAL HISTORY: fall COMPARISON: Facial Bones W/ Mpr dated 03/16/2023; Ct Stroke Brain Wo Cont dated 02/24/2021; Brain Wo Cont dated 02/24/2021 TECHNIQUE: Axial thin cut noncontrast CT images of the head were obtained. Axial thin cut noncontrast CT images of the cervical spine were obtained. Multiplanar reformatted images were generated and reviewed. All CT scans are performed using dose optimization technique as appropriate and may include automated exposure control or mA/KV adjustment according to patient size. FINDINGS: CT HEAD WITHOUT CONTRAST: No acute hemorrhage, hydrocephalus or extra-axial collection is identified.Stable left centrum semiov angela focus of hypoattenuation suggestive of a remote infarct. Patchy periventricular deep white matter hypodensities, stable and nonspecific, but most suggestive of chronic small vessel ischemic changes. No areas of brain edema or midline shift. The paranasal sinuses and mastoids are clear.The calvarium is intact. CT CERVICAL SPINE WITHOUT CONTRAST: No fracture or subluxation. Mild multilevel degenerative changes with mild to moderate degrees of nichole ral foraminal narrowing, most notably at C4-5 bilaterally and C5-6 on the left. No prevertebral soft tissues swelling is identified. IMPRESSION: No acute traumatic intracranial or cervical spine findings. Chronic findings as above.
--- NOTE | 2023-03-16 18:43 | RAD REPORT ---
EXAM DESCRIPTION: CT - CTFB CLINICAL HISTORY: fall COMPARISON: No comparisons TECHNIQUE: Axial thin cut noncontrast CT images of the face were obtained with sagittal and coronal reconstruction images. All CT scans are performed using dose optimization technique as appropriate and may include automated exposure control or mA/KV adjustment according to patient size. FINDINGS: No acute facial bone fracture is seen.The mandible is intact. The globes and orbital contents are grossly unremarkable.The paranasal sinuses and mastoids are clear . IMPRESSION: Negative for facial bone fracture.
--- NOTE | 2023-03-16 20:49 | ER ---
Nurse's Notes [facility] Name: Fela Ayoub Age: 72 yrs Sex: Female : 1950 Arrival Date: 03/16/2023 Time: 16:26 Bed 11 Private MD: Diagnosis: Laceration without foreign body of scalp;Hypokalemia;Nausea with vomiting, unspecified;Fall on same level, unspecified Presentation: 03/16 16:42 Chief complaint: Patient states: She was grocery shopping and she fell. Pt states that cm10 she hit her head. Pt has a lac on her head. Pt noted to be vomiting during triage. No LOC, pt states that she is taking blood thinners. Pt only complaining of head pain. Coronavirus screen: Vaccine status: Patient reports receiving the 2nd dose of the covid vaccine. Client denies travel out of the [place] in the last 14 days. Ebola Screen: Patient denies travel to an Ebola-affected area in the 21 days before illness onset. No symptoms or risks identified at this time. Initial Sepsis Screen: Does the patient meet any 2 criteria? No. Patient's initial sepsis screen is negative. Does the patient have a suspected source of infection? No. Patient's initial sepsis screen is negative. Risk Assessment: Do you want to hurt yourself or someone else? Patient reports no desire to harm self or others. Onset of symptoms was March 16, 2023. 16:42 Method Of Arrival: EMS: [facility] cm10 16:42 Acuity: ALE 3 cm10 Triage Assessment: 16:45 General: Appears in no apparent distress. comfortable, Behavior is calm, cooperative. cm10 Pain: Complains of pain in head. EENT: No deficits noted. No signs and/or symptoms were reported regarding the EENT system. Neuro: No deficits noted. Barriga Agitation-Sedation Scale (RASS): 0 - Alert and Calm Level of Consciousness is awake, alert, obeys commands, Oriented to person, place, time, situation. Cardiovascular: No deficits noted. Patient's skin is warm and dry. Respiratory: No deficits noted. Airway is patent Respiratory effort is even, unlabored, Respiratory pattern is regular, symmetrical. GI: No deficits noted. No signs and/or symptoms were reported involving the gastrointestinal system. : No deficits noted. No signs and/or symptoms were reported regarding the genitourinary system. Derm: Wound noted scalp Wound is Laceration. Musculoskeletal: No deficits noted. Range of motion: intact in all extremities. Historical: - Allergies: 16:38 Hydrocodone-Acetaminophen; hallucination; cm10 16:38 Iodine; cm10 16:38 Plavix; cm10 - Home Meds: 17:37 metoprolol tartrate 100 mg oral tablet 1 tab 2 times per day [Active]; metformin 500 mg cm10 oral tablet 2 tabs 2 times per day [Active]; Aggrenox Oral [Active]; Vascepa 1 gram oral capsule 2 caps [Active]; hydrochlorothiazide 25 mg Oral tab 1 tab 2 times per day [Active]; fenofibrate 54 mg oral tablet 1 tab daily [Active]; irbesartan 300 mg Oral tab 1 tab once daily [Active]; atorvastatin 80 mg oral tablet daily [Active]; Protonix 40 mg Oral tablet, delayed release (enteric coated) [Active]; - PMHx: 16:38 Diabetes - IDDM; High Cholesterol; squamous cell carcinoma; Hypertension; cm10 Cerebrovascular accident; - PSHx: 16:38 cardiac stents; section; Cholecystectomy; Coronary artery bypass graft; Total cm10 abdominal hysterectomy; - Immunization history:: Adult Immunizations up to date. - Social history:: Smoking status: Patient denies any tobacco usage or history of. Screenin:43 [facility] ED Fall Risk Assessment (Adult) History of falling in the last 3 months, cm10 including since admission Yes- single mechanical fall (1 pt) Confusion or Disorientation No (0 pts) Intoxicated or Sedated No (0 pts) Impaired Gait No (0 pts) Mobility Assist Device Used No (0 pt) Altered Elimination No (0 pt) Score/Fall Risk Level 0 - 2 = Low Risk Oriented to surroundings, Maintained a safe environment, Hourly rounding (assess needs \T\ fall precautionary measures) done. Abuse screen: Denies threats or abuse. Denies injuries from another. Nutritional screening: No deficits noted. Tuberculosis screening: No symptoms or risk factors identified. Assessment: 17:45 Reassessment: Patient appears in no apparent distress at this time. Patient and/or cm10 family updated on plan of care and expected duration. Pain level reassessed. Patient is alert, oriented x 3, equal unlabored respirations, skin warm/dry/pink. 18:43 Reassessment: Pt assisted to bedside commode. cm10 19:01 Reassessment: C-Collar removed at this time. cm10 Vital Signs: 16:42 BP 167 / 80; Pulse 78; Resp 16; Temp 98.3; Pulse Ox 99% on R/A; Weight 97.52 kg; Height cm10 5 ft. 3 in. ; Pain 4/10; 17:30 BP 141 / 76; Pulse 89; Resp 16; Pulse Ox 98% on R/A; cm10 18:00 BP 154 / 76; Pulse 85; Resp 18; Pulse Ox 99% ; cm10 19:00 BP 127 / 70; cm10 19:30 BP 125 / 69; cm10 20:00 BP 142 / 81; cm10 20:30 BP 146 / 63; Pulse 71; Resp 18; Pulse Ox 99% ; cm10 16:42 Body Mass Index 38.09 (97.52 kg, 160.02 cm) cm10 16:42 Pain Scale: Adult cm10 ED Course: 16:28 Patient arrived in ED. cm10 16:29 Ladarius Wells PA is PHCP. cp 16:29 Paulina Hensley MD is Attending Physician. cp 16:37 Emperatriz Sneed, [place] is Primary Nurse. cm10 16:45 Triage completed. cm10 16:45 Arm band placed on Patient placed in an exam room, on a stretcher, on pulse oximetry. cm10 17:14 Basic Metabolic Panel Sent. cm10 17:14 CBC with Diff Sent. cm10 17:14 Type And Screen Sent. cm10 17:14 Initial lab(s) drawn, by de, sent to lab. T\T\S collected, blood band applied to patient. cm10 Inserted saline lock: 20 gauge in right antecubital area, using aseptic technique. Blood collected. 17:43 Patient has correct armband on for positive identification. Bed in low position. Call cm10 light in reach. Side rails up X2. Provided Education on: ER process and procedures. . Pulse ox on. NIBP on. 17:57 CT Head C Spine In Process Unspecified. EDMS 17:57 CT Facial Bones W/O Con In Process Unspecified. EDMS 20:10 ED physician to see patient. cm10 20:57 No provider procedures requiring assistance completed. IV discontinued, intact, cm10 bleeding controlled, No redness/swelling at site. Pressure dressing applied. Administered Medications: 17:37 Drug: Ondansetron IVP 4 mg IVP once; over 2 minutes Route: IVP; Site: right antecubital;cm10 19:19 Follow up: Response: No adverse reaction cm10 17:37 Drug: Famotidine IVP 20 mg IVP once; dilute with 10 mL 0.9% NaCl; give over 2 minutes cm10 Route: IVP; Site: right antecubital; 19:19 Follow up: Response: No adverse reaction cm10 19:19 CANCELLED (Duplicate Order): hcbhwwagb-yhmlhczofnh-6%: (1:100,000) 10 ml 20 ml cm10 Infiltration once; to bedside 20:03 Drug: Lidocaine Infiltration (1 %) 10 ml 20 ml Infiltration once; to bedside {Note: cm10 given by provider.} Volume: 20 ml; Route: Infiltration; 20:10 Drug: Potassium PO Effervescent Tablet 50 mEq PO once; dissolve in 4 ounces of water or cm10 juice Route: PO; 20:56 Follow up: Response: No adverse reaction cm10 20:36 Drug: Ondansetron IVP 4 mg IVP once; over 2 minutes Route: IVP; Site: right antecubital;cm10 20:56 Follow up: Response: No adverse reaction cm10 Medication: 17:43 VIS not applicable for this client. cm10 Outcome: 20:49 Discharge ordered by . cp 20:57 Discharged to home ambulatory, with family, cm10 20:57 Condition: good cm10 20:57 Discharge instructions given to patient, Instructed on discharge instructions, follow up and referral plans. medication usage, Demonstrated understanding of instructions, follow-up care, medications, Prescriptions given X 1, 20:57 Patient left the ED. cm10 Signatures: Dispatcher [employer] EDMS Ladarius Wells PA PA cp Martinez, Clarissa, RN RN cm10
--- NOTE | 2023-03-16 20:50 | EDPHYS ---
Physician Documentation [facility] Name: Fela Ayoub Age: 72 yrs Sex: Female : 1950 Arrival Date: 03/16/2023 Time: 16:26 Bed 11 Private MD: ED Physician Paulina Hensley HPI: 03/16 17:00 This 72 yrs old Female presents to ER via EMS with complaints of Fall Injury. cp 17:00 Details of fall: The patient fell from an upright position, while walking, and struck a cp tile surface. Onset: The symptoms/episode began/occurred just prior to arrival. Associated injuries: The patient sustained injury to the head, laceration, of the top of head, swelling, tenderness. Severity of symptoms: in the emergency department the symptoms are unchanged, despite EMS interventions. Patient is a 72-year-old female with past medical history significant for diabetes, hypertension, hyperlipidemia who presents to the emergency department after reported trip and fall at a local grocery store. Patient reports she fell forward striking her head against the ground. No reported loss of consciousness but patient presents with vomiting and with complaints of nausea. Historical: - Allergies: 16:38 Hydrocodone-Acetaminophen; hallucination; cm10 16:38 Iodine; cm10 16:38 Plavix; cm10 - Home Meds: 17:37 metoprolol tartrate 100 mg oral tablet 1 tab 2 times per day [Active]; metformin 500 mg cm10 oral tablet 2 tabs 2 times per day [Active]; Aggrenox Oral [Active]; Vascepa 1 gram oral capsule 2 caps [Active]; hydrochlorothiazide 25 mg Oral tab 1 tab 2 times per day [Active]; fenofibrate 54 mg oral tablet 1 tab daily [Active]; irbesartan 300 mg Oral tab 1 tab once daily [Active]; atorvastatin 80 mg oral tablet daily [Active]; Protonix 40 mg Oral tablet, delayed release (enteric coated) [Active]; - PMHx: 16:38 Diabetes - IDDM; High Cholesterol; squamous cell carcinoma; Hypertension; cm10 Cerebrovascular accident; - PSHx: 16:38 cardiac stents; section; Cholecystectomy; Coronary artery bypass graft; Total cm10 abdominal hysterectomy; - Immunization history:: Adult Immunizations up to date. - Social history:: Smoking status: Patient denies any tobacco usage or history of. ROS: 17:05 Skin: Positive for laceration(s), of the top of head, cp 17:05 Constitutional: Negative for fever, cp 17:05 Cardiovascular: Negative for chest pain, 17:05 Abdomen/GI: Positive for nausea and vomiting, Negative for diarrhea, constipation, 17:05 Neuro: Positive for headache, Negative for loss of consciousness, syncope, 17:05 All other systems are negative, Exam: 17:10 Constitutional: The patient appears in no acute distress, alert, awake, non-toxic, well cp developed, well nourished, obese, uncomfortable, 17:10 Head/face: Noted is a laceration(s), that is linear, of the top of head, cp 17:10 Eyes: Periorbital structures: appear normal, Pupils: equal, round, and reactive to light and accomodation, Extraocular movements: intact throughout, Conjunctiva: normal, no exudate, no injection, Lids and lashes: appear normal, bilaterally, 17:10 ENT: External ear(s): are unremarkable, Nose: is normal, Mouth: Lips: moist, Oral mucosa: moist, Posterior pharynx: Airway: no evidence of obstruction, patent, 17:10 Neck: C-spine: vertebral tenderness, is not appreciated, crepitus, is not appreciated, ROM/movement: pain, is not appreciated, limited range of motion, is not appreciated, 17:10 Chest/axilla: Inspection: normal, Palpation: is normal, no crepitus, no tenderness, 17:10 Cardiovascular: Rate: normal, Rhythm: regular, 17:10 Respiratory: the patient does not display signs of respiratory distress, Respirations: normal, no use of accessory muscles, no retractions, labored breathing, is not present, Breath sounds: are clear throughout, no decreased breath sounds, no stridor, no wheezing, 17:10 Abdomen/GI: Inspection: abdomen appears normal, Palpation: abdomen is soft and non-tender, in all quadrants, 17:10 Back: pain, is absent, ROM is normal, vertebral tenderness, is not appreciated, 17:10 Musculoskeletal/extremity: Extremities: all appear grossly normal, with no appreciated pain with palpation, 17:10 Neuro: Orientation: to person, place \T\ time. Mentation: able to follow commands, Motor: moves all fours, strength is normal, Sensation: is normal, Vital Signs: 16:42 BP 167 / 80; Pulse 78; Resp 16; Temp 98.3; Pulse Ox 99% on R/A; Weight 97.52 kg; Height cm10 5 ft. 3 in. ; Pain 4/10; 17:30 BP 141 / 76; Pulse 89; Resp 16; Pulse Ox 98% on R/A; cm10 18:00 BP 154 / 76; Pulse 85; Resp 18; Pulse Ox 99% ; cm10 19:00 BP 127 / 70; cm10 19:30 BP 125 / 69; cm10 20:00 BP 142 / 81; cm10 20:30 BP 146 / 63; Pulse 71; Resp 18; Pulse Ox 99% ; cm10 16:42 Body Mass Index 38.09 (97.52 kg, 160.02 cm) cm10 16:42 Pain Scale: Adult cm10 Laceration: 20:35 Wound Repair of 6cm ( 2.4in ) subcutaneous laceration to scalp. Linear shaped.. Distal cp neuro/vascular/tendon intact. Anesthesia: Wound infiltrated with 10 mls of 1% lidocaine. Wound prep: Simple cleansing by me. Skin closed with 10 1-0 Carlin using staple gun. Dressed with 4x4's. Patient tolerated well. MDM: 16:29 Patient medically screened. 20:48 Data reviewed: vital signs, nurses notes, radiologic studies, CT scan. 20:48 I considered the following discharge prescriptions or medication management in the emergency department Medications were administered in the Emergency Department. See MAR. Care significantly affected by the following chronic conditions: Diabetes, Hypertension, Obesity. Response to treatment: the patient's symptoms have markedly improved after treatment, and as a result, I will discharge patient. Special discussion: Based on the patient's history, exam and DX evaluation, there is no indication for emergent intervention or inpatient TX. It is understood by the patient/guardian that if the SXs persist or worsen they need to return immediately for re-evaluation. 03/16 16:46 Order name: Basic Metabolic Panel; Complete Time: 18:58 03/16 18:58 Interpretation: Normal except: NA 135; K 3.2; GLUC 190; BUN 28; CRE 1.05; GFR 56. 03/16 16:46 Order name: CBC with Diff; Complete Time: 18:58 03/16 16:46 Order name: Type And Screen; Complete Time: 18:58 cp 03/16 16:46 Order name: CT Head C Spine; Complete Time: 18:58 cp 03/16 18:59 Interpretation: Reviewed report. 03/16 16:46 Order name: CT Facial Bones W/O Con; Complete Time: 18:58 cp 03/16 16:46 Order name: C-Collar; Complete Time: 16:56 cp 03/16 16:46 Order name: IV; Complete Time: 17:14 cp 03/16 16:46 Order name: Labs collected and sent; Complete Time: 17:14 cp Administered Medications: 17:37 Drug: Ondansetron IVP 4 mg IVP once; over 2 minutes Route: IVP; Site: right antecubital;cm10 19:19 Follow up: Response: No adverse reaction cm10 17:37 Drug: Famotidine IVP 20 mg IVP once; dilute with 10 mL 0.9% NaCl; give over 2 minutes cm10 Route: IVP; Site: right antecubital; 19:19 Follow up: Response: No adverse reaction cm10 19:19 CANCELLED (Duplicate Order): dttrbfgzp-cnmimaufsnu-7%: (1:100,000) 10 ml 20 ml cm10 Infiltration once; to bedside 20:03 Drug: Lidocaine Infiltration (1 %) 10 ml 20 ml Infiltration once; to bedside {Note: cm10 given by provider.} Volume: 20 ml; Route: Infiltration; 20:10 Drug: Potassium PO Effervescent Tablet 50 mEq PO once; dissolve in 4 ounces of water or cm10 juice Route: PO; 20:56 Follow up: Response: No adverse reaction cm10 20:36 Drug: Ondansetron IVP 4 mg IVP once; over 2 minutes Route: IVP; Site: right antecubital;cm10 20:56 Follow up: Response: No adverse reaction cm10 Disposition Summary: 03/16/23 20:49 Discharge Ordered Notes: Location: Home cp Problem: new cp Symptoms: have improved cp Condition: Stable cp Diagnosis - Laceration without foreign body of scalp cp - Hypokalemia cp - Nausea with vomiting, unspecified cp - Fall on same level, unspecified cp Followup: cp - With: Private Physician - When: 7 - 10 days - Reason: Staple/Suture removal Discharge Instructions: - Discharge Summary Sheet cp - Potassium Content of Foods cp - Head Injury, Adult cp - Laceration Care, Adult cp - Nausea and Vomiting, Adult cp - Hypokalemia cp Forms: - Medication Reconciliation Form cp - Thank You Letter cp - Antibiotic Education cp - Prescription Opioid Use cp - Patient Portal Instructions cp - Leadership Thank You Letter cp Prescriptions: - Zofran 4 mg Oral Tablet - take 1 tablet ORAL route every 12 hours As needed; 20 tablet; Refills: 0, cp Product Selection Permitted Signatures: Dispatcher [employer] EDMS Ladarius Wells PA PA Emperatriz Calabrese RN RN cm10 Corrections: (The following items were deleted from the chart) 19:19 16:58 Lidocaine-Epinephrine Infiltration -1%: (1:100,000) 10 ml 20 ml Infiltration cm10 once; to bedside ordered. cp 19:19 19:19 Lidocaine-Epinephrine Infiltration -1%: (1:100,000) 10 ml 20 ml Infiltration cm10 once; to bedside ordered. cm10
[2023-03-17 02:44] VITALS: TEMP 98.3
[2023-03-17 02:56] VITALS: BP 146/63; O2SAT 99
== END ==
LOC: ER 16:26
PROC: 0HQ0XZZ Repair Scalp Skin, External Approach (ICD-10-PCS; principal; 2023-03-16)
DX: S01.01XA Laceration without foreign body of scalp, initial encounter (principal); E87.6 Hypokalemia; R11.2 Nausea with vomiting, unspecified; W18.30XA Fall on same level, unspecified, initial encounter; E11.9 Type 2 diabetes mellitus without complications; I10 Essential (primary) hypertension; Z95.1 Presence of aortocoronary bypass graft; Z95.818 Presence of other cardiac implants and grafts; Z88.5 Allergy status to narcotic agent; Z88.8 Allergy status to other drugs, medicaments and biological substances; Z91.048 Other nonmedicinal substance allergy status
CPT/HCPCS: 85025; 80048; 36415; 86900; 86850; 86901; 70450; 72125; 70486; 76377; 96375; 96374; 99285; 12002; A4216; J2001; J2405 ×2

== ENCOUNTER → 2023-03-27 | Emergency (ER) | payer OTHER ==
--- NOTE | 2023-03-27 11:09 | EDPHYS ---
Physician Documentation [facility] Name: Fela Ayoub Age: 72 yrs Sex: Female : 1950 Arrival Date: 03/27/2023 Time: 10:29 Bed DX5 Private MD: ED Physician Fernando Avelar HPI: 03/27 11:09 This 72 yrs old Female presents to ER via Ambulatory with complaints of ec2 Suture Removal. 11:09 Patient arrives today for evaluation of her scalp with bartolo. Patient reports that ec2 she had bartolo placed approximately 10 days ago and feels they are ready to be removed. Denies any concerns or issues with the laceration.. Historical: - Allergies: 10:54 Hydrocodone-Acetaminophen; hallucination; ld1 10:54 Iodine; ld1 10:54 Plavix; ld1 - PMHx: 10:54 Hypertension; squamous cell carcinoma; Cerebrovascular accident; Diabetes - IDDM; High ld1 Cholesterol; - PSHx: 10:54 Cholecystectomy; Total abdominal hysterectomy; section; section; ld1 cardiac stents; Coronary artery bypass graft; - Immunization history:: Adult Immunizations up to date. - Social history:: Smoking status: Patient denies any tobacco usage or history of. Patient/guardian denies using alcohol. ROS: 11:09 Constitutional: as per hpi ec2 Exam: 11:09 Constitutional: GEN: NAD Head: atraumatic Eyes: EOMI Ears: External ears are ec2 normal. CV: regular rate LUNGS: no respiratory distress ABD: non-distended SKIN: Well-healed laceration to the scalp with MSK: no evidence of trauma NEURO: moves all extremities equally Vital Signs: 10:55 BP 139 / 78; Pulse 84; Resp 18; Temp 97.9(TE); Pulse Ox 100% on R/A; Weight 93.89 kg; ld1 Height 5 ft. 3 in. ; Pain 0/10; 10:55 Body Mass Index 36.67 (93.89 kg, 160.02 cm) ld1 10:55 Pain Scale: Adult ld1 Procedures: 11:09 Suture/Staple removal: Removed 10 bartolo, from face, site appears well healed, Patient ec2 tolerated well. MDM: 11:08 Patient medically screened. ec2 11:09 Data reviewed: vital signs. ED course: Patient arrives today for scalp laceration ec2 evaluation. I removed the bartolo without issue and will discharge home. Return precautions given.. Administered Medications: No medications were administered Disposition Summary: 03/27/23 11:08 Discharge Ordered Notes: Location: Home ec2 Condition: Stable ec2 Diagnosis - Scalp Laceration/ Open wound of scalp ec2 Followup: ec2 - With: Private Physician - When: - Reason: Recheck today's complaints Discharge Instructions: - Discharge Summary Sheet ec2 - Wound Care, Adult ec2 Forms: - Medication Reconciliation Form ec2 - Thank You Letter ec2 - Antibiotic Education ec2 - Prescription Opioid Use ec2 - Patient Portal Instructions ec2 - Leadership Thank You Letter ec2 Signatures: Michelle Castaneda RN RN ld1 Fernando Avelar MD MD ec2
--- NOTE | 2023-03-27 11:09 | ER ---
Nurse's Notes [facility] Name: Fela Ayoub Age: 72 yrs Sex: Female : 1950 Arrival Date: 03/27/2023 Time: 10:29 Bed DX5 Private MD: Diagnosis: Scalp Laceration/ Open wound of scalp Presentation: 03/27 10:53 Chief complaint: Patient states: bartolo on head removed. 10th day of having bartolo. ld1 Coronavirus screen: At this time, the client does not indicate any symptoms associated with coronavirus-19. Ebola Screen: No symptoms or risks identified at this time. Risk Assessment: Do you want to hurt yourself or someone else? Patient reports no desire to harm self or others. Onset of symptoms was March 27, 2023. 10:53 Method Of Arrival: Ambulatory ld1 10:53 Acuity: ALE 4 ld1 11:00 Initial Sepsis Screen: Does the patient meet any 2 criteria? No. Patient's initial iw sepsis screen is negative. Does the patient have a suspected source of infection? No. Patient's initial sepsis screen is negative. Triage Assessment: 10:54 General: Appears in no apparent distress. comfortable, Behavior is calm, cooperative, ld1 appropriate for age. Pain: Denies pain. EENT: No signs and/or symptoms were reported regarding the EENT system. Neuro: Level of Consciousness is awake, alert, obeys commands, Oriented to person, place, time, situation. Cardiovascular: Capillary refill < 3 seconds Patient's skin is warm and dry. Respiratory: Airway is patent Respiratory effort is even, unlabored. GI: Abdomen is round non-distended. : No signs and/or symptoms were reported regarding the genitourinary system. Derm: No signs and/or symptoms reported regarding the dermatologic system. Musculoskeletal: No signs and/or symptoms reported regarding the musculoskeletal system. Historical: - Allergies: 10:54 Hydrocodone-Acetaminophen; hallucination; ld1 10:54 Iodine; ld1 10:54 Plavix; ld1 - PMHx: 10:54 Hypertension; squamous cell carcinoma; Cerebrovascular accident; Diabetes - IDDM; High ld1 Cholesterol; - PSHx: 10:54 Cholecystectomy; Total abdominal hysterectomy; section; section; ld1 cardiac stents; Coronary artery bypass graft; - Immunization history:: Adult Immunizations up to date. - Social history:: Smoking status: Patient denies any tobacco usage or history of. Patient/guardian denies using alcohol. Screenin:31 [facility] ED Fall Risk Assessment (Adult) Score/Fall Risk Level 0 - 2 = Low Risk. Abuse iw screen: Denies threats or abuse. Denies injuries from another. Nutritional screening: No deficits noted. Tuberculosis screening: No symptoms or risk factors identified. Assessment: 11:00 General: Appears in no apparent distress. Behavior is calm, cooperative. Pain: Denies iw pain. Neuro: Level of Consciousness is awake, alert, obeys commands, Moves all extremities. Full function. Vital Signs: 10:55 BP 139 / 78; Pulse 84; Resp 18; Temp 97.9(TE); Pulse Ox 100% on R/A; Weight 93.89 kg; ld1 Height 5 ft. 3 in. ; Pain 0/10; 10:55 Body Mass Index 36.67 (93.89 kg, 160.02 cm) ld1 10:55 Pain Scale: Adult ld1 ED Course: 10:34 Patient arrived in ED. mr 10:38 Fernando Avelar MD is Attending Physician. ec2 10:54 Triage completed. ld1 10:54 Arm band placed on right wrist. ld1 11:00 Patient has correct armband on for positive identification. iw 11:00 Provided Education on: . iw 11:31 No provider procedures requiring assistance completed. Patient did not have IV access iw during this emergency room visit. 11:32 Geovanna Peterson, RN is Primary Nurse. iw Administered Medications: No medications were administered Medication: 11:00 VIS not applicable for this client. iw Outcome: 11:08 Discharge ordered by . ec2 11:31 Discharged to home ambulatory, with family, iw 11:31 Condition: good 11:31 Discharge instructions given to family, Instructed on discharge instructions, follow up and referral plans. Demonstrated understanding of instructions, follow-up care, 11:32 Patient left the ED. iw Signatures: Cassidy Pennington, Reg Reg mr Geovanna Peterson, [place] RN iw Michelle Castaneda RN RN ld1 Fernando Avelar MD MD ec2
[2023-03-27 12:17] VITALS: BP 139/78; TEMP 97.9; O2SAT 100
== END ==
LOC: ER 10:29
DX: Z48.02 Encounter for removal of sutures (principal)
CPT/HCPCS: 99282

== ENCOUNTER 2023-12-22 13:39 | Emergency (ER) | payer OTHER ==
--- NOTE | 2023-12-22 14:27 | RAD REPORT ---
EXAMINATION: CT HEAD WITHOUT CONTRAST CT CERVICAL SPINE WITHOUT CONTRAST CLINICAL INDICATION: Head and neck injury status post fall. Head and neck pain TECHNIQUE: Axial CT images from the skull base to the vertex without intravenous contrast. Axial CT i mages through the cervical spine were obtained without intravenous contrast. Sagittal and coronal reformatted images were created from the data set. Coronal and sagittal reformatted images were creat ed from the data set. One or more of the following dose reduction techniques were used: Automated exposure control, adjustment of the mA and/or kV according to patient size, and/or iterative reconstr uction. Unless otherwise specified, incidental findings do not require dedicated imaging follow-up. [id number]. Comparison: September 2023 FINDINGS: Intracranial bleed not noted. Ventricles are normal in caliber. No significant hypodensity within the brain Mild to moderate low density within the periventricular cortical white matter likely ischemic changes secondary to small vessel disease. Small old left cerebral infarct. No fluid within the sinuses/mastoids No fracture or dislocation is seen involving the cervical spine. Mild chronic posterior subluxation C4 on C5. IMPRESSION: No acute intracranial abnormality noted A cervical fracture is not seen. If the patient continues to have symptoms to suggest acute [employer]/spinal pathology then MRI would be rec ommended
--- NOTE | 2023-12-22 14:45 | RAD REPORT ---
Exam:Knee Right 3 View HISTORY: Right knee pain FINDINGS: No fracture or dislocation seen
--- NOTE | 2023-12-22 14:46 | RAD REPORT ---
Exam:Hip Right 2 View HISTORY: Right hip pain FINDINGS: No fracture or dislocation seen If the patient continues to have symptoms to suggest an occult fracture then MRI would be recommended
--- NOTE | 2023-12-22 14:49 | RAD REPORT ---
EXAM:Ankle Right 3 View CLINICAL HISTORY: Ankle pain FINDINGS: Mild osteoarthritis right ankle. Large spur extends off the posterior aspect of the calcaneus. It appears detached. It probably is chr onic but should be correlated clinically. Large posterior calcaneal spur No dislocation
--- NOTE | 2023-12-22 15:17 | ER ---
Nurse's Notes [facility] Name: Fela Ayoub Age: 73 yrs Sex: Female : 1950 Arrival Date: 12/22/2023 Time: 13:39 Bed 8 Private MD: Diagnosis: Mechanical fall;Right ankle pain;Closed head injury Presentation: 12/21 14:02 Chief complaint: Patient states: she was getting off of the toilet when her right ankle kc6 gave out. Coronavirus screen: At this time, the client does not indicate any symptoms associated with coronavirus-19. Ebola Screen: No symptoms or risks identified at this time. Initial Sepsis Screen: Does the patient meet any 2 criteria? No. Patient's initial sepsis screen is negative. Does the patient have a suspected source of infection? No. Patient's initial sepsis screen is negative. Risk Assessment: Do you want to hurt yourself or someone else? Patient reports no desire to harm self or others. Onset of symptoms was December 22, 2023. 14:02 Method Of Arrival: EMS: [facility] kc6 14:02 Acuity: ALE 4 kc6 Historical: - Allergies: 14:03 Hydrocodone-Acetaminophen; hallucination; kc6 14:03 Iodine; kc6 14:03 Plavix; kc6 - PMHx: 14:03 Cerebrovascular accident; Diabetes - IDDM; High Cholesterol; Hypertension; squamous kc6 cell carcinoma; Myocardial infarction; - PSHx: 14:03 cardiac stents; section; Cholecystectomy; Coronary artery bypass graft; Total kc6 abdominal hysterectomy; - Immunization history:: Adult Immunizations up to date. - Infectious Disease History:: Denies. - Social history:: Smoking status: Patient denies any tobacco usage or history of. - Family history:: not pertinent. Screenin:04 [facility] ED Fall Risk Assessment (Adult) History of falling in the last 3 months, kc6 including since admission Yes- fall prone (multiple falls) (3 pts) Confusion or Disorientation No (0 pts) Intoxicated or Sedated No (0 pts) Impaired Gait No (0 pts) Mobility Assist Device Used No (0 pt) Altered Elimination No (0 pt) Score/Fall Risk Level 3 or more points = High Risk Oriented to surroundings. Abuse screen: Denies threats or abuse. Denies injuries from another. Nutritional screening: No deficits noted. Tuberculosis screening: No symptoms or risk factors identified. Assessment: 14:04 General: Appears in no apparent distress. comfortable, well groomed, well developed, kc6 Behavior is calm, cooperative, appropriate for age. Pain: Denies pain. Neuro: Level of Consciousness is awake, alert, obeys commands, Oriented to person, place, time, situation, Appropriate for age. Cardiovascular: Capillary refill < 3 seconds. Respiratory: Airway is patent Trachea midline Respiratory effort is even, unlabored, Respiratory pattern is regular, symmetrical. GI: No signs and/or symptoms were reported involving the gastrointestinal system. : No signs and/or symptoms were reported regarding the genitourinary system. EENT: No signs and/or symptoms were reported regarding the EENT system. Derm: No signs and/or symptoms reported regarding the dermatologic system. Skin is intact, is healthy with good turgor, Skin is pink, warm \T\ dry. Musculoskeletal: Circulation, motion, and sensation intact. Capillary refill < 3 seconds, Range of motion: limited in right ankle. 15:02 Reassessment: Patient appears in no apparent distress at this time. No changes from kc6 previously documented assessment. Patient and/or family updated on plan of care and expected duration. Pain level reassessed. Patient is alert, oriented x 3, equal unlabored respirations, skin warm/dry/pink. Vital Signs: 14:02 BP 134 / 66; Pulse 85; Resp 16 S; Temp 98(TE); Pulse Ox 100% on R/A; Weight 90.26 kg kc6 (R); Height 5 ft. 3 in. (R); Pain 0/10; 14:02 Body Mass Index 35.25 (90.26 kg, 160.02 cm) [facility] 14:02 Pain Scale: Adult kc6 ED Course: 13:47 Patient arrived in ED. rt 13:47 Michael Luz MD is Attending Physician. rt 14:02 Christal Dillon RN is Primary Nurse. 6 14:03 Triage completed. kc6 14:03 Arm band placed on. kc6 14:03 Patient has correct armband on for positive identification. Bed in low position. Call [facility] light in reach. Side rails up X2. Adult w/ patient. Pulse ox on. NIBP on. Door closed. Noise minimized. Lights dimmed. Pillow given. 14:03 Patient maintains SpO2 saturation greater than 95% on room air. kc6 14:09 CT Head C Spine In Process Unspecified. EDMS 14:40 Hip Right 2 View XRAY In Process Unspecified. EDMS 14:40 Knee Right 3 View XRAY In Process Unspecified. EDMS 14:40 Ankle Right 3 View XRAY In Process Unspecified. EDMS 15:02 Assisted to bathroom. kc6 15:27 Lan wrap to right ankle. kc6 15:27 No provider procedures requiring assistance completed. Patient did not have IV access kc6 during this emergency room visit. Administered Medications: No medications were administered Medication: 15:28 VIS not applicable for this client. kc6 Outcome: 15:17 Discharge ordered by . rt 15:27 Discharged to home via wheelchair, with significant other, kc6 15:27 Condition: good 15:27 Discharge instructions given to patient, significant other, Instructed on discharge instructions, follow up and referral plans. Demonstrated understanding of instructions, follow-up care, 15:28 Patient left the ED. kc6 Signatures: Dispatcher [employer] Christal Lira, RN RN kc6 Michael Luz MD MD rt
--- NOTE | 2023-12-22 15:17 | EDPHYS ---
Physician Documentation [facility] Name: Fela Ayoub Age: 73 yrs Sex: Female : 1950 Arrival Date: 12/22/2023 Time: 13:39 Bed 8 Private MD: ED Physician Michael Luz HPI: 12/21 14:28 This 73 yrs old Female presents to ER via EMS with complaints of Ankle Injury. rt 14:28 Patient presents to the ED with mechanical fall. Patient states that she was walking, rt when her right ankle gave out, inwardly twisting. She reports pain to her ankle, states that she hit her knee, unclear if she has right hip pain or not at this time. Patient states that she hit her head but did not sustain a loss of consciousness. Denies other acute complaints at this time, symptoms are mild in severity, no other aggravating or alleviating factors.. Historical: - Allergies: 14:03 Hydrocodone-Acetaminophen; hallucination; kc6 14:03 Iodine; kc6 14:03 Plavix; kc6 - PMHx: 14:03 Cerebrovascular accident; Diabetes - IDDM; High Cholesterol; Hypertension; squamous kc6 cell carcinoma; Myocardial infarction; - PSHx: 14:03 cardiac stents; section; Cholecystectomy; Coronary artery bypass graft; Total kc6 abdominal hysterectomy; - Immunization history:: Adult Immunizations up to date. - Infectious Disease History:: Denies. - Social history:: Smoking status: Patient denies any tobacco usage or history of. - Family history:: not pertinent. ROS: 14:28 Constitutional: Negative for fever, chills, and weight loss, Cardiovascular: Negative rt for chest pain, palpitations, and edema, Respiratory: Negative for shortness of breath, cough, wheezing, and pleuritic chest pain, Abdomen/GI: Negative for abdominal pain, nausea, vomiting, diarrhea, and constipation, Skin: Negative for injury, rash, and discoloration, Neuro: Negative for headache, weakness, numbness, tingling, and seizure, 14:28 MS/extremity: Positive for pain, Negative for injury or acute deformity, Exam: 14:28 Constitutional: This is a well developed, well nourished patient who is awake, alert, rt and in no acute distress. Head/Face: Normocephalic, atraumatic. Chest/axilla: Normal chest wall appearance and motion. Nontender with no deformity. No lesions are appreciated. Cardiovascular: Regular rate and rhythm with a normal S1 and S2. No gallops, murmurs, or rubs. Normal PMI, no JVD. No pulse deficits. Respiratory: Lungs have equal breath sounds bilaterally, clear to auscultation and percussion. No rales, rhonchi or wheezes noted. No increased work of breathing, no retractions or nasal flaring. Abdomen/GI: Soft, non-tender, with normal bowel sounds. No distension or tympany. No guarding or rebound. No evidence of tenderness throughout. Skin: Warm, dry with normal turgor. Normal color with no rashes, no lesions, and no evidence of cellulitis. 14:28 Abdomen/GI: 14:28 Musculoskeletal/extremity: Mild swelling, tenderness to right ankle, right knee, no deformities noted.. Vital Signs: 14:02 BP 134 / 66; Pulse 85; Resp 16 S; Temp 98(TE); Pulse Ox 100% on R/A; Weight 90.26 kg kc6 (R); Height 5 ft. 3 in. (R); Pain 0/10; 14:02 Body Mass Index 35.25 (90.26 kg, 160.02 cm) kc6 14:02 Pain Scale: Adult kc6 MDM: 13:47 Medical Screening Exam initiated rt 16:53 Differential diagnosis: fracture, sprain, Intracranial injury. Data reviewed: vital rt signs, nurses notes, radiologic studies. Test considered but Not performed: Other Details Denies syncopal symptoms, labs, EKG not indicated. Care significantly affected by the following chronic conditions: Diabetes. Counseling: I had a detailed discussion with the patient and/or guardian regarding the historical points, exam findings, and any diagnostic results supporting the discharge/admit diagnosis, radiology results, the need for outpatient follow up, to return to the emergency department if symptoms worsen or persist or if there are any questions or concerns that arise at home. Response to treatment: the patient's symptoms have markedly improved after treatment. 12/21 13:49 Order name: CT Head C Spine; Complete Time: 14:57 rt 12/21 13:49 Order name: Hip Right 2 View XRAY; Complete Time: 14:57 rt 12/21 13:49 Order name: Knee Right 3 View XRAY; Complete Time: 14:57 rt 12/21 13:49 Order name: Ankle Right 3 View XRAY; Complete Time: 14:57 rt 12/21 15:16 Order name: Lan Wrap; Complete Time: 15:27 rt Administered Medications: No medications were administered Disposition Summary: 12/22/23 15:17 Discharge Ordered Notes: Location: Home rt Problem: new rt Symptoms: have improved rt Condition: Stable rt Diagnosis - Mechanical fall rt - Right ankle pain rt - Closed head injury rt Followup: rt - With: Private Physician - When: 2 - 3 days - Reason: Discharge Instructions: - Discharge Summary Sheet rt - Fall Prevention in the Home, Adult rt - Ankle Pain rt Forms: - Medication Reconciliation Form rt - Antibiotic Education rt - Prescription Opioid Use rt - Patient Portal Instructions rt - Leadership Thank You Letter rt Signatures: Dispatcher [employer] Christal Lira RN RN kc6 Michael Luz MD MD rt Corrections: (The following items were deleted from the chart) 13:49 13:49 Ankle Right 3 View+RAD.RAD.BRZ ordered. JESSICA LOPEZ
[2023-12-22 16:58] VITALS: BP 134/66; TEMP 98; O2SAT 100
== END 2023-12-22 15:28 | disposition home or self-care (01) ==
LOC: ER 13:39
DX: M25.571 Pain in right ankle and joints of right foot (principal); S09.90XA Unspecified injury of head, initial encounter; W17.89XA Other fall from one level to another, initial encounter; E11.9 Type 2 diabetes mellitus without complications; I10 Essential (primary) hypertension; Z95.1 Presence of aortocoronary bypass graft
CPT/HCPCS: 70450; 72125; 99284

== ENCOUNTER 2024-03-08 08:09 | Inpatient (IN) | payer OTHER ==
[2024-03-08] MEDS ORDERED: ONDANSETRON 4 MG/2 ML VIAL ONE (08:17)
[2024-03-08] MEDS ORDERED: KETAMINE HCL IN 0.9 % NACL 50 MG/5 ML SYRINGE IV ONE ×2 (08:18→10:09)
[2024-03-08 08:39] LABS: Absolute Basophils 0.1 K/uL (0-0.5); Absolute Lymphocytes (CBC) 2.2 K/uL (0.7-4.9); Absolute Monocytes 0.7 K/uL (0.1-1.3); Absolute Neutrophil 6.2 K/uL (1.8-8.0); Basophils % 0.7 % (0-1.3); Eosinophils % 0.2 % (0-4.4); Hematocrit 38.9 % (36.0-45.0); Hemoglobin 13.2 g/dL (12.0-15.0); Lymphocytes % 23.4 % (15.3-44.8); MCV 79.4 fL (80-100); MPV 7.3 fL (7.6-11.3); Monocytes % 8.1 % (3.3-12.3); Neutrophils % 67.6 % (41.7-73.7); Nucleated Red Blood Cells % 0.1 % (0-0); Platelets 429 thou/uL (152-406); Red Cell Distribution Width 16.8 % (12.1-15.2)
[2024-03-08 08:46] LABS: Specific Gravity 1.025 (1.005-1.030); Sqamous Epithelial <5 /HPF (None Seen); Transitional Epithelial <5 /HPF (None Seen); Urine Bacteria <20 /HPF (<20); Urine Bilirubin NEGATIVE (Negative); Urine Blood Trace (Negative); Urine Clarity Extremely Turbid (Clear); Urine Color Yellow (Yellow); Urine Culture Reflex Order NOT NEEDED; Urine Glucose 3+ (Negative); Urine Ketones NEGATIVE (Negative); Urine Microscopic Reflex YN ORDER UMIC; Urine Mucus 2+ /HPF (None Seen); Urine Nitrite NEGATIVE (Negative); Urine Protein 3+ (Negative); Urine RBC <5 /HPF (None Seen); Urine Urobilinogen Normal (Normal)
[2024-03-08 08:56] LABS: Albumin 2.7 g/dL (3.4-5.0); Albumin/Globulin Ratio 0.7 (1.1-1.8); Anion Gap 9.6 mEq/L (5.0-15.0); Bilirubin Total 0.5 mg/dL (0.2-1.0); Globulin 3.8 g/dL (2.3-3.5); Potassium 3.6 mEq/L (3.5-5.1); Protein, Total 6.5 g/dL (6.4-8.2)
[2024-03-08 09:46] LABS: Barbiturates NEGATIVE (NEGATIVE); Benzodiazepines POSITIVE (NEGATIVE); Cocaine NEGATIVE (NEGATIVE); METHAMPHETAM NEGATIVE (NEGATIVE); Methadone NEGATIVE (NEGATIVE); Opiates NEGATIVE (NEGATIVE); Phencyclidine NEGATIVE (NEGATIVE); THC Cannibis NEGATIVE (NEGATIVE)
--- NOTE | 2024-03-08 10:13 | RAD REPORT ---
EXAM: CT Head Brain Wo Cont HISTORY: AMS, recent fall COMPARISON: 02/24/2021 and 12/22/2023 TECHNIQUE: Multiple contiguous axial images were obtained for a CT of the brain without contrast. Sag ittal and coronal reformats were performed. One or more of the following dose reduction techniques were used: Automated exposure control, adjus tment of the mA and kV according to patient size, and iterative reconstruction. Unless otherwise specified, incidental findings do not require dedicated imaging follow-up. FINDINGS: No evidence of hydrocephalus, intracranial hemorrhage, or extra-axial fluid collection. Moderate brain atrophy with moderate periventricular and deep white matter chronic microvascular isc hemic changes, stable. Asymmetric left centrum semiovale foci of hypoattenuation, stable, may relate to remote lacunar infarcts. The calvarium is intact. The visualized paranasal sinuses and mastoid air cells are essentially clear . IMPRESSION: No evidence of acute intracranial abnormality. Stable chronic findings as above.
--- NOTE | 2024-03-08 10:29 | RAD REPORT ---
EXAMINATION: ONE VIEW CHEST XR CLINICAL INDICATION: Female, 73 years old.,COUGH TECHNIQUE: Frontal chest projection is submitted. Examination is limited by patient positioning and t echnique. COMPARISON: 12/02/2021 FINDINGS: The lungs are somewhat hypoinflated and clear. No pneumothorax or sizable effusion. The heart is nor mal in size. Mediastinal contours are unremarkable. IMPRESSION: No acute intrathoracic abnormalities.
[2024-03-08 10:31] LABS: Thyroid Stimulating Hormone 1.13 uIU/mL (0.358-3.740); Troponin High Sensitivity 54.3 pg/mL (<58.9)
--- NOTE | 2024-03-08 11:03 | RAD REPORT ---
EXAMINATION: CT Abdomen Pelvis Wo Contrast CLINICAL INDICATION: Female, 73 years old. abd pain, ams TECHNIQUE: CT abdomen and pelvis was performed, without IV contrast, as per department protocol. Axia l, sagittal and coronal reconstructions were obtained. One or more of the following dose reduction techniques were used: Automated exposure control, adjustment of the mA and kV according to the patien t size, and iterative reconstruction. Unless otherwise specified, incidental findings do not require dedicated imaging follow-up. COMPARISON: 02/23/2021 FINDINGS: The lack of intravenous contrast limits the sensitivity of this exam for evaluation of solid visceral organs, vascular structures, and retroperitoneum. LOWER CHEST: The visualized lung bases are clear. LIVER: Normal in size and contour. No focal lesion. BILIARY SYSTEM: Status post cholecystectomy. SPLEEN: Normal size. No focal lesion. PANCREAS: No mass, ductal dilation, or rex-pancreatic fluid. ADRENALS: Normal; no mass. KIDNEYS AND URETERS: Normal size and contour. No hydronephrosis. 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 URINARY BLADDER: Suboptimally distended, limiting evaluation, without suspicious findings. GASTROINTESTINAL TRACT: No evidence of bowel obstruction, significant free fluid, free air or abscess . APPENDIX: Normal appendix. LYMPH NODES: No lymphadenopathy. MUSCULOSKELETAL: No acute or suspicious osseous abnormality. ADDITIONAL FINDINGS: None. IMPRESSION: No acute or concerning abnormalities in the abdomen or pelvis, with evaluation limited by lack of IV contrast. Stable incidental findings as above.
--- NOTE | 2024-03-08 11:14 | EDPHYS ---
Physician Documentation [facility] Name: Fela Ayoub Age: 73 yrs Sex: Female : 1950 Arrival Date: 03/08/2024 Time: 08:09 Bed 3 Private MD: ED Physician Fernando Avelar HPI: 03/08 08:24 This 73 yrs old Female presents to ER via Unassigned with complaints of ec2 Altered Mental Status. 08:24 Patient with history of frequent UTIs arrives today for altered mental status. Patient ec2 reportedly hypoglycemic and drowsy on arrival with EMS and subsequently gave her D10 with improvement in mental status however patient became combative requiring Versed. Reported recent falls however occurred several days ago. Patient difficult to obtain history from due to altered mental status.. Historical: - Allergies: 08:05 Hydrocodone-Acetaminophen; hallucination; db 08:05 Plavix; db 08:05 Iodine; db - PMHx: 08:05 Cerebrovascular accident; Diabetes - IDDM; High Cholesterol; Hypertension; Myocardial db infarction; squamous cell carcinoma; 08:05 CHRONIC URINARY TRACT INFECTION; db - PSHx: 08:05 cardiac stents; section; Cholecystectomy; Coronary artery bypass graft; Total db abdominal hysterectomy; - Immunization history:: Adult Immunizations unknown. - Infectious Disease History:: Denies. - Social history:: Smoking status: Patient denies any tobacco usage or history of. ROS: 08:24 Constitutional: as per hpi ec2 Exam: 08:24 Constitutional: GEN: NAD Head: atraumatic Eyes: EOMI Ears: External ears are ec2 normal. CV: regular rate LUNGS: no respiratory distress ABD: non-distended, soft, not guarding, not rigid SKIN: no evidence of rashes MSK: no evidence of trauma Vital Signs: 08:05 BP 168 / 136; Pulse 65; Resp 16; Temp 98.8; Pulse Ox 97% ; db 08:38 BP 178 / 73; Pulse 67; Resp 18; Pulse Ox 98% on 2 lpm NC; ph 08:05 PATIENT ROLLING AROUND MOVING. DIFFICULTY OBTAINING BP. db MDM: 08:20 Medical Screening Exam initiated ec2 08:24 Data reviewed: vital signs, nurses notes. ED course: Patient arrives today for some of ec2 his status and hypoglycemia. Examination is revealing for altered individuals otherwise nonfocal. Will obtain lab work, urine studies, CT scan of the head, give the patient ketamine for agitation. Differential includes UTI, intracranial mass, intracranial bleed. . 09:49 ED course: EKG independently reviewed and interpreted by me, shows normal sinus rhythm, ec2 rate of 61, no acute ST segment elevations, intervals are nonactionable.. 11:12 ED course: CT imaging is nonactionable. No acute intra-abdominal process, CT scan of ec2 the head is negative. Lab work is nonactionable. Will admit for altered mental status and further workup. Will give the patient Haldol and Benadryl as well. Patient has PT PCP at [facility] and was sent in no longer sees Dr. Howard and would like inpatient hospitalization with the hospitalist team.. 03/08 08:20 Order name: CBC with Diff; Complete Time: 08:56 ec2 03/08 08:20 Order name: CMP; Complete Time: 09:05 ec2 03/08 08:20 Order name: Lipase; Complete Time: 09:05 ec2 03/08 08:20 Order name: Urinalysis w/ reflexes; Complete Time: 08:56 ec2 03/08 08:34 Order name: Glucose, Ancillary Testing; Complete Time: 08:56 EDMS 03/08 09:20 Order name: AMMONIA; Complete Time: 10:24 ec2 03/08 09:20 Order name: TSH; Complete Time: 10:43 ec2 03/08 09:20 Order name: T4 Free; Complete Time: 10:43 ec2 03/08 09:20 Order name: Troponin High Sensitivity; Complete Time: 10:43 ec2 03/08 09:20 Order name: UDS; Complete Time: 09:56 ec2 03/08 12:29 Order name: Glucose, Ancillary Testing EDMS 03/08 08:21 Order name: CT Head Brain wo Cont; Complete Time: 10:24 ec2 03/08 09:07 Order name: CXR XRAY; Complete Time: 10:43 ec2 03/08 10:17 Order name: Abdomen ; Complete Time: 11:06 EDMS 03/08 08:21 Order name: IV Saline Lock; Complete Time: 08:40 ec2 03/08 08:21 Order name: Labs collected and sent; Complete Time: 08:40 ec2 03/08 09:20 Order name: EKG - Nurse/Tech; Complete Time: 09:58 ec2 Administered Medications: 08:35 Drug: Ketamine IVP 25 mg IVP once Route: IVP; Site: left antecubital; ph 11:29 Follow up: Response: No adverse reaction db 08:36 Drug: Ondansetron IVP 4 mg IVP once; over 2 minutes Route: IVP; Site: left antecubital; ph 08:59 Follow up: Response: No adverse reaction ph 08:36 Drug: NS 0.9% IV 1000 ml IV at 1 bolus Per protocol; to be given as a bolus over 60 ph minutes Route: IV; Rate: 1 bolus; Site: left antecubital; 11:29 Follow up: Response: No adverse reaction; IV Status: Completed infusion; IV Intake: db 1000ml 08:58 Drug: Ketamine IVP 25 mg IVP once Route: IVP; Site: left antecubital; ph 11:29 Follow up: Response: No adverse reaction db 10:12 Drug: Ketamine IVP 25 mg IVP once Route: IVP; Site: left antecubital; ph 11:29 Follow up: Response: No adverse reaction; Anxiety decreased db 11:20 Drug: Haloperidol IVP 5 mg IVP once Route: IVP; Site: left antecubital; db 12:00 Follow up: Response: No adverse reaction ph 11:20 Drug: diphenhydrAMINE IVP 50 mg IVP once Route: IVP; Site: left antecubital; db 12:00 Follow up: Response: No adverse reaction ph Point of Care Testing: Blood Glucose: 08:05 Blood Glucose: 186 mg/dL; db Ranges: Critical Glucose Levels:Adult <50 mg/dl or >400 mg/dl <40 mg/dl or >180 mg/dl Disposition Summary: 03/08/24 11:14 Hospitalization Ordered Notes: Hospitalization Status: Inpatient Admission ec2 Provider: Armani Yeung Location: Telemetry/MedSurg (Inpatient) ec2 Condition: Stable ec2 Problem: an acute exacerbation ec2 Symptoms: are unchanged ec2 Bed/Room Type: Standard ec2 Room Assignment: 209(03/08/24 12:14) nh2 Diagnosis - Altered mental status, unspecified ec2 Forms: - Medication Reconciliation Form ec2 - SBAR form ec2 - Leadership Thank You Letter ec2 Signatures: Dispatcher [employer] EDMS Yuridia Nichols, RN RN Clara Pena RN RN db Fernando Avelar MD MD 2 Derrek Santos Jr Corrections: (The following items were deleted from the chart) 08:21 08:21 CBC+H.LAB.BRZ ordered. EDMS EDMS 08:21 08:21 COMPREHENSIVE METABOLIC PANEL+C.LAB.BRZ ordered. EDMS EDMS 08:21 08:21 LIPASE+C.LAB.BRZ ordered. EDMS EDMS 08:21 08:21 Urinalysis+U.LAB.BRZ ordered. EDMS EDMS 08:21 08:21 Head Brain Wo Cont+CT.RAD.BRZ ordered. EDMS EDMS 08:30 08:05 PMHx: CHRONIC UTI (Total abdominal hysterectomy); db db 09:21 09:20 AMMONIA+C.LAB.BRZ ordered. EDMS EDMS 09:21 09:20 THYROID STIMULAT HORMONE+C.LAB.BRZ ordered. EDMS EDMS 09:21 09:20 T4 FREE+C.LAB.BRZ ordered. EDMS EDMS 09:21 09:20 Troponin High Sensitivity+C.LAB.BRZ ordered. EDMS EDMS 09:21 09:21 URINE DRUG SCREEN+UC.LAB.BRZ ordered. EDMS EDMS 10:04 10:04 Abdomen Pelvis W Con+CT.RAD.BRZ ordered. EDMS EDMS 12:14 11:14 ec2 nh2
--- NOTE | 2024-03-08 11:14 | ER ---
Nurse's Notes [facility] Name: Fela Ayoub Age: 73 yrs Sex: Female : 1950 Arrival Date: 03/08/2024 Time: 08:09 Bed 3 Private MD: Diagnosis: Altered mental status, unspecified Presentation: 03/08 08:05 Chief complaint: EMS states: ALTERED MENTAL STATUS FROM HOME FOUND BY EMS ON THE FLOOR db IN SEVERE PAIN. PUPILS WERE SLUGGISH AND 3 FOR EMS. GLUCOSE WAS 42 THEN GIVEN BAG D10 GLUCOSE RECHECK WAS 183 FOR EMS. PATIENT GIVEN 2.5 MG VERSED, 25 MCG FENTANYL, 1 MG NARCAN AND 500 ML NS BY EMS. HX OF UTI. DX WITH UTI AT [facility] [place] [facility] THIS WEEK PER . Coronavirus screen: Client denies travel out of the [place] in the last 14 days. At this time, the client does not indicate any symptoms associated with coronavirus-19. Ebola Screen: Patient negative for fever greater than or equal to 101.5 degrees Fahrenheit, and additional compatible Ebola Virus Disease symptoms Patient denies exposure to infectious person. Patient denies travel to an Ebola-affected area in the 21 days before illness onset. No symptoms or risks identified at this time. Initial Sepsis Screen: Does the patient meet any 2 criteria? Altered Mental Status. Yes Does the patient have a suspected source of infection? No. Patient's initial sepsis screen is negative. Risk Assessment: Do you want to hurt yourself or someone else? Patient reports no desire to harm self or others. Onset of symptoms was March 08, 2024. 08:05 Method Of Arrival: EMS: [facility] db 08:05 Acuity: ALE 2 db 08:05 Care prior to arrival: Medication(s) given: Normal saline infusion, 500 mL, NARCAN 1 db MG, 2.5 MG VERSED, 25 MCG FENTANYL IV initiated. 20 GA, in the left antecubital area, Glucose check: 42. Triage Assessment: 08:05 General: Appears in no apparent distress. uncomfortable, Behavior is agitated, anxious, db inappropriate for age, restless. Pain: Unable to use pain scale. Patient is disoriented. Neuro: Level of Consciousness is confused, Oriented to none. Respiratory: Airway is patent Respiratory effort is even, unlabored, Respiratory pattern is regular, symmetrical. : white, malodorous. Historical: - Allergies: 08:05 Hydrocodone-Acetaminophen; hallucination; db 08:05 Plavix; db 08:05 Iodine; db - PMHx: 08:05 Cerebrovascular accident; Diabetes - IDDM; High Cholesterol; Hypertension; Myocardial db infarction; squamous cell carcinoma; 08:05 CHRONIC URINARY TRACT INFECTION; db - PSHx: 08:05 cardiac stents; section; Cholecystectomy; Coronary artery bypass graft; Total db abdominal hysterectomy; - Immunization history:: Adult Immunizations unknown. - Infectious Disease History:: Denies. - Social history:: Smoking status: Patient denies any tobacco usage or history of. Screenin:36 [facility] ED Fall Risk Assessment (Adult) History of falling in the last 3 months, ph including since admission Yes- physiologic fall (2 pts) Confusion or Disorientation Yes (5 pts) Intoxicated or Sedated Yes (3 pts) Impaired Gait No (0 pts) Mobility Assist Device Used Yes (1 pt) Altered Elimination Yes (1 pt) Score/Fall Risk Level 3 or more points = High Risk Oriented to surroundings, Maintained a safe environment, Hourly rounding (assess needs \T\ fall precautionary measures) done, Used ambulatory aids as needed (educated on \T\ assisted with), Used gait belt as appropriate. Abuse screen: Denies threats or abuse. Denies injuries from another. Nutritional screening: No deficits noted. Tuberculosis screening: No symptoms or risk factors identified. Assessment: 08:10 Reassessment: SEE TRIAGE FOR INITIAL ASSESSMENT. db 10:12 Reassessment: Patient appears in no apparent distress at this time. No changes from previously documented assessment. Pt taken for abdominal CT. Vital Signs: 08:05 BP 168 / 136; Pulse 65; Resp 16; Temp 98.8; Pulse Ox 97% ; db 08:38 BP 178 / 73; Pulse 67; Resp 18; Pulse Ox 98% on 2 lpm NC; ph 08:05 PATIENT ROLLING AROUND MOVING. DIFFICULTY OBTAINING BP. db ED Course: 08:05 Arm band placed on Patient placed in an exam room. db 08:15 Straight cath inserted, using sterile technique, 14 Fr. Specimen obtained. Returned db cloudy urine. Patient tolerated. Maintain EMS IV. Dressing intact. Good blood return noted. Site clean \T\ dry. Gauge \T\ site: 20 G LAC. Flushed with 10 mL NS. 08:18 Patient arrived in ED. eb 08:20 Fernando Avelar MD is Attending Physician. ec2 08:23 Clara Pena, [place] is Primary Nurse. db 08:28 Triage completed. db 08:36 Urinalysis w/ reflexes Sent. ph 08:36 Lipase Sent. ph 08:36 CMP Sent. ph 08:36 CBC with Diff Sent. ph 08:36 Initial lab(s) drawn, by me, sent to lab. ph 08:37 Patient has correct armband on for positive identification. Client placed on continuous ph cardiac and pulse oximetry monitoring. NIBP monitoring applied. hospital monitor on. Warm blanket given. Pillow given. Verbal reassurance given. 09:09 CT Head Brain wo Cont In Process Unspecified. EDMS 09:39 CXR XRAY In Process Unspecified. EDMS 09:59 Initial lab(s) drawn, Repeat lab(s) drawn. by me, sent to lab. EKG done, by ED staff. kb4 10:17 Abdomen In Process Unspecified. EDMS 11:13 Armani Yeung MD is Hospitalizing Provider. ec2 13:26 No provider procedures requiring assistance completed. Patient admitted, IV remains in ph place. Administered Medications: 08:35 Drug: Ketamine IVP 25 mg IVP once Route: IVP; Site: left antecubital; ph 11:29 Follow up: Response: No adverse reaction db 08:36 Drug: Ondansetron IVP 4 mg IVP once; over 2 minutes Route: IVP; Site: left antecubital; ph 08:59 Follow up: Response: No adverse reaction ph 08:36 Drug: NS 0.9% IV 1000 ml IV at 1 bolus Per protocol; to be given as a bolus over 60 ph minutes Route: IV; Rate: 1 bolus; Site: left antecubital; 11:29 Follow up: Response: No adverse reaction; IV Status: Completed infusion; IV Intake: db 1000ml 08:58 Drug: Ketamine IVP 25 mg IVP once Route: IVP; Site: left antecubital; ph 11:29 Follow up: Response: No adverse reaction db 10:12 Drug: Ketamine IVP 25 mg IVP once Route: IVP; Site: left antecubital; ph 11:29 Follow up: Response: No adverse reaction; Anxiety decreased db 11:20 Drug: Haloperidol IVP 5 mg IVP once Route: IVP; Site: left antecubital; db 12:00 Follow up: Response: No adverse reaction ph 11:20 Drug: diphenhydrAMINE IVP 50 mg IVP once Route: IVP; Site: left antecubital; db 12:00 Follow up: Response: No adverse reaction ph Medication: 08:38 VIS not applicable for this client. ph Point of Care Testing: Blood Glucose: 08:05 Blood Glucose: 186 mg/dL; db Ranges: Intake: 11:29 IV: 1000ml; Total: 1000ml. db Outcome: 11:14 Decision to Hospitalize by Provider. ec2 13:27 Admitted to Med/surg accompanied by tech, family with patient, via stretcher, room 209, ph 13:27 Condition: stable 13:27 Instructed on the need for admit, 13:28 Patient left the ED. ph Signatures: Dispatcher [employer] Yuridia Blanchard RN RN ph Sammi Austin Danielle, RN RN db Fernando Avelar MD MD 2 Maya Bernabe kb4 Corrections: (The following items were deleted from the chart) 08:30 08:05 PMHx: CHRONIC UTI (Total abdominal hysterectomy); db db
[2024-03-08] MEDS ORDERED: HALOPERIDOL LACT 5 MG/ML INJ ONE (11:16)
[2024-03-08] MEDS ORDERED: DIPHENHYDRAMINE 50 MG/ML VIAL ONE (11:16)
[2024-03-08] MEDS ORDERED: ONDANSETRON 4 MG/2 ML VIAL IV PRN (12:43)
[2024-03-08] MEDS ORDERED: ACETAMINOPHEN 500 MG TAB PO PRN (12:43)
[2024-03-08] MEDS: NA CHLORIDE 0.9% 1,000 ML IV SCH (13:40)
--- NOTE | 2024-03-08 13:49 | P.HP ---
Certification for Inpatient Patient admitted to: Inpatient With expected LOS: >2 Midnights Patient will require the following post-hospital care: None Practitioner: I am a practitioner with admitting privileges, knowledge of patient current condition, hospital course, and medical plan of care. Services: Services provided to patient in accordance with Admission requirements found in Title 42 Section 412.3 of the Code of Federal Regulations Patient History Date of Service: 03/08/24 Reason for admission: Hypoglycemia, AMS History of Present Illness: 73-year-old female history of insulin-dependent diabetes, hypertension, hyperlipidemia, CAD, presents to the emergency department chief complaint of altered mental status. reports that she was standing up in the bathroom when she collapsed to the ground/was guided down by him and became verbally unresponsive. Her eyes were open and she was looking around the room would not make eye contact. Upon EMS arrival her blood glucose was checked and it was 42. She was given dextrose and became more alert but was agitated, confused in the ED. Patient was evaluated in the emergency department and her labs were significant for sodium of 130 chloride 97 glucose 191 troponin 54.3 not concerning for urinary tract infection. CT head was negative for acute findings, CT of the abdomen pelvis was also negative for acute findings chest x-ray no acute intrathoracic abnormalities. Patient was seen at an outside hospital emergency department a little less than 2 weeks ago diagnosed with urinary tract infection, given Keflex. She has taken the Keflex and reportedly has only 2 tablets left. She has also been dealing with severe sciatic pain per family and had recently began taking her prescribed oral tramadol for the last 2 to 3 days at home, she was still apparently having a lot of pain and had not been eating much. She is an insulin-dependent diabetic and did not reduce her dose of long-acting insulin she currently takes Tresiba 60 units twice daily at home. This likely explains the hypoglycemia. To obtain imaging patient required IV ketamine which is also contributing to her current AMS. Patient will be admitted for further evaluation and management of hypoglycemia, AMS Allergies clopidogrel [From Plavix] Allergy (Verified 03/20/19 15:24) Rash iodine Allergy (Verified 03/20/19 15:24) Rash Home Medications: Insulin Glargine,Hum.rec.anlog [Basaglar Kwikpen U-100] 50 unit SQ 30 MIN BEFORE HS 03/21/19 Irbesartan [Avapro] 300 mg PO DAILY 03/21/19 Metoprolol Tartrate [Lopressor] 100 mg PO BID 03/21/19 Atorvastatin Calcium [Lipitor] 80 mg PO BEDTIME 01/12/21 Duloxetine HCl 60 mg PO DAILY 02/06/21 Insulin Glargine,Hum.rec.anlog [Basaglar Kwikpen U-100] 60 units SQ BREAKFAST 02/06/21 Docusate [Colace Cap*] 100 mg PO PRN PRN 02/24/21 Polyethylene Glycol 3350 [Miralax] 17 gm PO PRN PRN 02/24/21 Dipyridamole/Aspirin [Aggrenox 25 mg-200 mg Cap*] 1 cap PO BID #60 cap 02/25/21 clonazePAM [Klonopin*] 0.25 mg PO BID tab 02/25/21 Cefuroxime [Ceftin*] 250 mg PO BID #6 tab 02/26/21 Folic Acid 1 mg PO DAILY #90 tablet 02/26/21 Pantoprazole [Protonix Tab*] 40 mg PO DAILYAC #30 tab 02/26/21 - Past Medical/Surgical History Diabetic: Yes -: hypertension -: skin cancer -: diabetesinsulin-dependent -: dyslipidemia -: CAD -: 2 heart stents 2000, 2001 -: hysterectomy -: hemorrhoidectomy -: right breast tumor removal -: Psychosocial/ Personal History: Lives at home with her - Social History Alcohol use: No CD- Drugs: No Caffeine use: No Place of Residence: Home Review of Systems is unable to be obtained Physical Examination - Physical Exam General: Confused, Other (Drowsy) HEENT: Atraumatic, PERRLA, Mucous membr. moist/pink, EOMI Neck: Supple Respiratory: Clear to auscultation bilaterally, Normal air movement Cardiovascular: No edema Capillary refill: <2 Seconds Gastrointestinal: Normal bowel sounds, Non-distended Musculoskeletal: No contractures, No erythema Integumentary: No significant lesion Neurological: Other (Drowsy, confused) - Studies Laboratory Data (last 24 hrs) 03/08/24 03/08/24 08:25 08:25 WBC 9.20 Hgb 13.2 Hct 38.9 Plt Count 429 H Sodium 130 L Potassium 3.6 BUN 27 H Creatinine 0.66 Glucose 191 H Total Bilirubin 0.5 AST 19 ALT 29 Alkaline Phosphatase 51 Lipase 18 Assessment and Plan - Plan Assessment: Metabolic encephalopathy likely secondary to hypoglycemia with possible polypharmacy Diabetes mellitus type 2insulin-dependent with hypoglycemia Poor oral intake Chronic back pain/sciatic pain Hypertension hyperlipidemia History of CAD Plan: Metabolic encephalopathy likely secondary to hypoglycemia with possible polypharmacy Glucose improved, continue to monitor Family reports patient was previously taking gabapentin consistently Recently started taking prescribed tramadol the past 3 days or so prior to admission Had decreased oral intake the past few days as well, was still taking her t ypical 60 units of Tresiba twice daily Hypoglycemic on scene, became more alert with dextrose, increased blood sugar but was confused/agitated Received IV ketamine the ED to facilitate imaging studies CT head negative for acute findings Continue to monitor glucose, try to limit psychoactive medications Daughter does report patient frequently experiences hospital related delirium when admitted especially at night Will attempt redirection, fall precautions in place, bed check ordered PT when patient more alert Diabetes mellitus type 2insulin-dependent with hypoglycemia Poor oral intake Monitor glucose closely Sliding scale insulin when glucose persistently greater than 120 Monitor oral intake N.p.o. for now given mental status Swallow screen then diet when more alert Chronic back pain/sciatic pain Hold tramadol, gabapentin for now Hypertension hyperlipidemia History of CAD Continue home medications when tolerating p.o., meds are verified DVT PPX: Lovenox Code status: Full-family looking into possible DNR paperwork Daughter is MPOA Discharge Plan: Home Plan to discharge in: 72 Hours - Advance Directives Does patient have a Living Will: No Does patient have a Durable POA for Healthcare: No - Code Status/Comfort Care Code Status Assessed: Yes (Full code) Time Spent Managing Pts Care (In Minutes): 65
[2024-03-08] MEDS: D5 0.45 NS 1,000 ML IV SCH ×2 (14:41→19:00)
[2024-03-08] MEDS: MORPHINE 2 MG/ML SYR IV PRN (16:24)
[2024-03-08] MEDS: HYDRALAZINE HCL 20 MG/ML VIAL IV PRN (16:24)
[2024-03-09] MEDS: HYDROMORPHONE HCL 1 MG/ML INJ IV ONE (05:08)
[2024-03-09] MEDS: VALSARTAN 160 MG TAB PO SCH (06:29)
[2024-03-09] MEDS: METOPROLOL XL 50 MG TAB PO SCH (06:29)
[2024-03-09 07:13] LABS: Absolute Lymphocytes (CBC) 2.6 K/uL (0.7-4.9); Absolute Neutrophil 8.8 K/uL (1.8-8.0); Basophils % 0.1 % (0-1.3); Eosinophils % 0.4 % (0-4.4); Hematocrit 39.1 % (36.0-45.0); Lymphocytes % 21.2 % (15.3-44.8); MCH 26.7 pg (27.0-35.0); MCHC 33.2 g/dL (32.0-36.0); MCV 80.4 fL (80-100); MPV 7.8 fL (7.6-11.3); Neutrophils % 70.3 % (41.7-73.7); Nucleated Red Blood Cells % 0.1 % (0-0); Platelets 447 thou/uL (152-406); RBC Red Blood Cell Count 4.86 M/uL (3.86-4.86); Red Cell Distribution Width 16.6 % (12.1-15.2)
[2024-03-09 07:25] LABS: Albumin 2.8 g/dL (3.4-5.0); Albumin/Globulin Ratio 0.8 (1.1-1.8); Anion Gap 12.2 mEq/L (5.0-15.0); Bilirubin Total 0.5 mg/dL (0.2-1.0); Globulin 3.5 g/dL (2.3-3.5); Potassium 3.2 mEq/L (3.5-5.1); Protein, Total 6.3 g/dL (6.4-8.2)
[2024-03-09] MEDS: POTASSIUM CL SA 10 MEQ TAB PO ONE ×2 (08:50→20:58)
[2024-03-09] MEDS: ENOXAPARIN 40 MG/0.4 ML SQ SCH (08:50)
--- NOTE | 2024-03-09 08:57 | P.PN ---
Date of Service: 03/09/24 Subjective: Mental status improving, oriented x 2 Complaints of pain to right hip/back Blood pressure elevated Will start clear liquids, give home medications No acute events overnight ROS: 10 point ROS as noted above, otherwise negative Physical exam GEN: Alert, oriented, NAD HEENT: Normal conjunctiva, sclera anicteric CV: Regular rate and rhythm, no edema Pulm: Nonlabored respirations on room air ABD: Soft, nontender, nondistended MSK: No joint tenderness Integumentary: No rashes Neuro: Normal speech, normal affect Vitals reviewed Assessment: Metabolic encephalopathy likely secondary to hypoglycemia with possible polypharmacy Diabetes mellitus type 2insulin-dependent with hypoglycemia Poor oral intake Chronic back pain/sciatic pain Hypertension hyperlipidemia History of CAD Plan: Metabolic encephalopathy likely secondary to hypoglycemia with possible polyp harmacy Glucose improved, continue to monitor Family reports patient was previously taking gabapentin consistently Recently started taking prescribed tramadol the past 3 days or so prior to admission Had decreased oral intake the past few days as well, was still taking her typical 60 units of Tresiba twice daily Hypoglycemic on scene, became more alert with dextrose, increased blood sugar but was confused/agitated Received IV ketamine the ED to facilitate imaging studies CT head negative for acute findings Continue to monitor glucose, try to limit psychoactive medications Daughter does report patient frequently experiences hospital related delirium when admitted especially at night Will attempt redirection, fall precautions in place, bed check ordered 1/4 patient more alert, tolerating oral intake, medications Complains of right hip pain, back pain review medications and start as appropriate It is possible the tramadol, gabapentin may have contributed to her lethargy/altered mentation, poor oral intake Diabetes mellitus type 2insulin-dependent with hypoglycemia Poor oral intake Monitor glucose closely Sliding scale insulin when glucose persistently greater than 120 Monitor oral intake Patient more alert, clear liquids for now, advance as tolerated Glucose still around 90 Continue to hold long-acting insulin Chronic back pain/sciatic pain Hold tramadol, gabapentin for now Hypertension hyperlipidemia History of CAD Continue home medications when tolerating p.o., meds are verified DVT PPX: Lovenox Code status: Full-family looking into possible DNR paperwork Daughter is KARAN Discharge Plan: Home Plan to discharge in: 72 Hours Time Spent Managing Pts Care (In Minutes): 35
[2024-03-09] MEDS: HYDROCODONE/APAP 5/325 MG TAB PO PRN (11:07)
[2024-03-09] MEDS ORDERED: DOCUSATE NA 100 MG CAP PO PRN ×2 (12:19→12:29)
[2024-03-09] MEDS: hydroCHLOROthiazide 25 MG TAB PO ONE (12:48)
[2024-03-09] MEDS ORDERED: ACETAMINOPHEN 325 MG TABLET PO PRN (13:40)
[2024-03-09] MEDS: LIDOCAINE 4% PATCH TOP SCH (14:05)
[2024-03-09] MEDS: icosapent ethyL 1 GM CAP PO SCH (20:57)
[2024-03-09] MEDS: ATORVASTATIN 80 MG TAB PO SCH (20:57)
[2024-03-09] MEDS: FERROUS SULFATE 325 MG TAB PO SCH (20:57)
[2024-03-09] MEDS: DIPYRIDAMOLE/ASPIRIN CAP ER PO SCH (20:58)
[2024-03-09] MEDS: METOPROLOL XL 100 MG TAB PO SCH (20:58)
[2024-03-10] MEDS: LORazepam 2 MG/ML VIAL IV ONE
[2024-03-10 06:14] VITALS: BMI 35.4
[2024-03-10] MEDS: INSULIN REGULAR (HUMAN) 100 UNIT/ML SQ SCH (07:30)
[2024-03-10] MEDS: SENOSIDES 8.6 MG TAB PO SCH (08:50)
[2024-03-10] MEDS: DULOXETINE 20 MG CAP PO SCH (08:50)
[2024-03-10] MEDS: CALCIUM CARBONATE 500 MG TAB PO SCH (08:50)
[2024-03-10] MEDS: TRAMADOL HCL 50 MG TAB PO PRN (08:50)
[2024-03-10] MEDS: hydroCHLOROthiazide 25 MG TAB PO SCH (08:51)
[2024-03-10 08:52] LABS: Absolute Basophils 0.1 K/uL (0-0.5); Absolute Eosinophils 0.1 K/uL (0-0.5); Absolute Lymphocytes (CBC) 2.1 K/uL (0.7-4.9); Absolute Neutrophil 10.3 K/uL (1.8-8.0); Basophils % 0.5 % (0-1.3); Eosinophils % 0.4 % (0-4.4); Hematocrit 38.9 % (36.0-45.0); Lymphocytes % 15.7 % (15.3-44.8); MCH 26.7 pg (27.0-35.0); MCHC 33.4 g/dL (32.0-36.0); MCV 79.8 fL (80-100); MPV 7.1 fL (7.6-11.3); Monocytes % 7.1 % (3.3-12.3); Neutrophils % 76.3 % (41.7-73.7); Platelets 493 thou/uL (152-406); RBC Red Blood Cell Count 4.87 M/uL (3.86-4.86); Red Cell Distribution Width 17.1 % (12.1-15.2)
--- NOTE | 2024-03-10 08:56 | P.PN ---
Date of Service: 03/10/24 Subjective: Mental status improving, oriented x 2 Complaints of pain to right hip/back Tolerating diet so far No acute events overnight ROS: 10 point ROS as noted above, otherwise negative Physical exam GEN: Alert/drowsy, oriented x2 , NAD HEENT: Normal conjunctiva, sclera anicteric CV: Regular rate and rhythm, no edema Pulm: Nonlabored respirations on room air ABD: Soft, nontender, nondistended MSK: No joint tenderness Integumentary: No rashes Neuro: Normal speech, normal affect Vitals reviewed Assessment: Metabolic encephalopathy likely secondary to hypoglycemia with possible polypharmacy Diabetes mellitus type 2insulin-dependent with hypoglycemia Poor oral intake Chronic back pain/sciatic pain Hypertension hyperlipidemia History of CAD Plan: Metabolic encephalopathy likely secondary to hypoglycemia with possible polypharmacy Glucose improved, continue to monitor Family reports patient was previously taking gabapentin consistently but stopped abruptly 5 days before admission Recently started taking prescribed tramadol the past 3 days or so prior to admission-has taken previously without issue Had decreased oral intake the past few days as well, was still taking her typical 60 units of Tresiba twice elyse CT head negative for acute findings Continue to monitor glucose, try to limit psychoactive medications Daughter does report patient frequently experiences hospital related delirium when admitted especially at night Will attempt redirection, fall precautions in place, bed check ordered / patient more alert, tolerating oral intake, medications Complains of right hip pain, back pain Will try tramadol as she has tolerated this in the past for pain with added lidoderm patch Avoiding gabapentin for now as it was reportedly not effective and daughter wants her off of it Diabetes mellitus type 2insulin-dependent with hypoglycemia Poor oral intake ACHS accucheck, SSI Monitor oral intake Continue to hold long-acting insulin Chronic back pain/sciatic pain Try tramadol as she has tolerated this before Add lidoderm patch Hypertension hyperlipidemia History of CAD Continue home medications when tolerating p.o., meds are verified DVT PPX: Lovenox Code status: Full-family looking into possible DNR paperwork Daughter is MPOA Discharge Plan: Home Plan to discharge in: 72 Hours Time Spent Managing Pts Care (In Minutes): 35
[2024-03-10 09:10] LABS: Albumin 2.9 g/dL (3.4-5.0); Albumin/Globulin Ratio 0.8 (1.1-1.8); Anion Gap 9.9 mEq/L (5.0-15.0); Bilirubin Total 0.7 mg/dL (0.2-1.0); Globulin 3.8 g/dL (2.3-3.5); Potassium 3.9 mEq/L (3.5-5.1); Protein, Total 6.7 g/dL (6.4-8.2)
[2024-03-11 05:36] LABS: Absolute Basophils 0.1 K/uL (0-0.5); Absolute Lymphocytes (CBC) 2.5 K/uL (0.7-4.9); Absolute Monocytes 0.8 K/uL (0.1-1.3); Absolute Neutrophil 6.5 K/uL (1.8-8.0); Basophils % 0.5 % (0-1.3); Eosinophils % 0.5 % (0-4.4); Hematocrit 36.6 % (36.0-45.0); Hemoglobin 12.6 g/dL (12.0-15.0); Lymphocytes % 25.3 % (15.3-44.8); MCH 27.8 pg (27.0-35.0); MCHC 34.5 g/dL (32.0-36.0); MCV 80.5 fL (80-100); MPV 7.1 fL (7.6-11.3); Neutrophils % 65.7 % (41.7-73.7); Nucleated Red Blood Cells % 0.1 % (0-0); Platelets 475 thou/uL (152-406); RBC Red Blood Cell Count 4.55 M/uL (3.86-4.86); Red Cell Distribution Width 17.1 % (12.1-15.2)
[2024-03-11 05:57] LABS: Albumin 2.7 g/dL (3.4-5.0); Albumin/Globulin Ratio 0.8 (1.1-1.8); Anion Gap 11.1 mEq/L (5.0-15.0); Bilirubin Total 0.7 mg/dL (0.2-1.0); Globulin 3.4 g/dL (2.3-3.5); Potassium 4.1 mEq/L (3.5-5.1); Protein, Total 6.1 g/dL (6.4-8.2)
--- NOTE | 2024-03-11 09:47 | P.PN ---
Date of Service: 03/11/24 Subjective: Mental status improving, oriented x 2-3 Was more drowsy yesterday after receiving ativan overnight Avoiding Ativan/IV meds when possible Doing much better today ROS: 10 point ROS as noted above, otherwise negative Physical exam GEN: Alert/drowsy, oriented x2-3 , NAD HEENT: Normal conjunctiva, sclera anicteric CV: Regular rate and rhythm, no edema Pulm: Nonlabored respirations on room air ABD: Soft, nontender, nondistended MSK: No joint tenderness Integumentary: No rashes Neuro: Normal speech, normal affect Vitals reviewed Assessment: Metabolic encephalopathy likely secondary to hypoglycemia with possible polypharmacy Diabetes mellitus type 2insulin-dependent with hypoglycemia Poor oral intake Chronic back pain/sciatic pain Hypertension hyperlipidemia History of CAD Plan: Metabolic encephalopathy likely secondary to hypoglycemia with possible po lypharmacy Glucose improved, continue to monitor Family reports patient was previously taking gabapentin consistently but stopped abruptly 5 days before admission Recently started taking prescribed tramadol the past 3 days or so prior to admission-has taken previously without issue Had decreased oral intake the past few days as well, was still taking her typical 60 units of Tresiba twice daily CT head negative for acute findings Continue to monitor glucose, try to limit psychoactive medications Daughter does report patient frequently experiences hospital related delirium when admitted especially at night Will attempt redirection, fall precautions in place, bed check ordered 03/11 patient more alert, tolerating oral intake, medications Complains of right hip pain, back pain Will try tramadol as she has tolerated this in the past for pain with added lidoderm patch Avoiding gabapentin for now as it was reportedly not effective and daughter wants her off of it States pain is well controlled with tramadol and gabapentin now Diabetes mellitus type 2insulin-dependent with hypoglycemia Poor oral intake ACHS accucheck, SSI Monitor oral intake Continue to hold long-acting insulin Takes tresiba 60 units BID at home as well as tradjent, metformin Tolerating diet, BLG well controlled with sliding scale so far Will need reduced dose of long acting insulin at DC and follow up with PCP Chronic back pain/sciatic pain Try tramadol as she has tolerated this before Add lidoderm patch Tolerating well so far PT consult Hypertension hyperlipidemia History of CAD Continue home medications when tolerating p.o., meds are verified DVT PPX: Lovenox Code status: Full-family looking into possible DNR paperwork Daughter is MPOA Discharge Plan: Home Plan to discharge in: 24-48 Hours Time Spent Managing Pts Care (In Minutes): 35
[2024-03-11 20:24] VITALS: O2SAT 99
[2024-03-12 05:27] LABS: Absolute Basophils 0.1 K/uL (0-0.5); Absolute Eosinophils 0.1 K/uL (0-0.5); Absolute Lymphocytes (CBC) 1.8 K/uL (0.7-4.9); Absolute Monocytes 0.7 K/uL (0.1-1.3); Absolute Neutrophil 6.3 K/uL (1.8-8.0); Basophils % 0.6 % (0-1.3); Eosinophils % 0.6 % (0-4.4); Hematocrit 35.4 % (36.0-45.0); Hemoglobin 12.2 g/dL (12.0-15.0); MCH 27.5 pg (27.0-35.0); MCHC 34.4 g/dL (32.0-36.0); MCV 79.8 fL (80-100); MPV 7.3 fL (7.6-11.3); Monocytes % 7.6 % (3.3-12.3); Neutrophils % 71.2 % (41.7-73.7); Platelets 411 thou/uL (152-406); RBC Red Blood Cell Count 4.44 M/uL (3.86-4.86); Red Cell Distribution Width 16.9 % (12.1-15.2)
[2024-03-12 06:37] LABS: Albumin 2.7 g/dL (3.4-5.0); Albumin/Globulin Ratio 0.7 (1.1-1.8); Bilirubin Total 0.6 mg/dL (0.2-1.0); Globulin 3.7 g/dL (2.3-3.5); Protein, Total 6.4 g/dL (6.4-8.2)
[2024-03-12] MEDS ORDERED: POLYETHYL GLY 3350 17 GM/DOSE PO PRN (10:01)
[2024-03-12] MEDS: HOME MED 1 EA UNK (Irbesartan [Avapro] 300 MG Tablet) PO SCH (10:01)
[2024-03-12] MEDS: HOME MED 1 EA UNK (Insulin Degludec [Tresiba Flextouch U-100] 100 UNIT/ML Insuln.Pen) SQ SCH (10:03)
[2024-03-12] MEDS: PANTOPRAZOLE 40MG TABLET PO SCH (12:16)
[2024-03-12] MEDS: INSULIN GLARGINE 100 UNIT/ML SQ SCH ×2 (14:59→18:00)
--- NOTE | 2024-03-12 17:41 | P.PN ---
Subjective Date of Service: 03/12/24 Chief Complaint: Hypoglycemia, AMS Patient is currently awake, alert and participating in the conversation meaningfully. She reports some dry mouth otherwise no other complaint. Patient seen sitting up in bed, ate breakfast. No reported agitation overnight. Physical Examination - Vital Signs Temperature: 97.3 F Blood Pressure: 120/53 Pulse: 70 Respirations: 16 Pulse Ox (%): 98 Assessment And Plan - Plan Physical examination GEN: Alert, oriented x 3 , NAD HEENT: Normal conjunctiva, sclera anicteric CV: Regular rate and rhythm, no edema Pulm: Clear to auscultation bilaterally, adequate breath sounds bilaterally. ABD: Soft, nontender, nondistended MSK: No joint tenderness Integumentary: No rashes Neuro: Normal speech, normal affect, no focal motor deficit. Vitals reviewed Assessment: Metabolic encephalopathy likely secondary to hypoglycemia with possible polypharmacy Diabetes mellitus type 2insulin-dependent with hypoglycemia Poor oral intake Chronic back pain/sciatic pain Hypertension hyperlipidemia History of CAD Plan: Metabolic encephalopathy likely secondary to hypoglycemia and polypharmacy Glucose improved and now hyperglycemic. AMS resolved, mental status is improved to baseline. Patient ambulated 550 feet with a walker and contact-guard assist. Continue to hold gabapentin Tramadol as needed for pain CT head negative for acute findings Limit psychoactive medications Daughter does report patient frequently experiences hospital related delirium when admitted especially at night Periodic reorientation. Chronic back pain/sciatic pain Patient states tramadol is helping the pain. Continue tramadol and lidoderm patch Tolerating well so far Patient is ambulatory with a walker. Continue PT. Diabetes mellitus type 2insulin-dependent with hypoglycemia Hypoglycemia resolved Patient is now hyperglycemic. She has good oral intake today. Continue ACHS accucheck, SSI. Resume home dose long-acting insulin at half a dose and monitor blood glucose level Continue to hold metformin Hypertension hyperlipidemia History of CAD Continue home medications. DVT PPX: Lovenox Code status: Full code Daughter is MPOA Discharge Plan: Home Plan to discharge in: 24 Hours
[2024-03-12 18:15] LABS: Sqamous Epithelial <5 /HPF (None Seen); Transitional Epithelial <5 /HPF (None Seen); Urine Bacteria <20 /HPF (<20); Urine Culture Reflex Order REFLEXED; Urine Microscopic Reflex YN ORDER UMIC; Urine Mucus Slight /HPF (None Seen); Urine RBC <5 /HPF (None Seen); Urine WBC >50 /HPF (<5); Urine WBC Clump Occasional /HPF (None Seen)
[2024-03-12 18:32] LABS: Specific Gravity 1.011 (1.005-1.030); Urine Bilirubin NEGATIVE (Negative); Urine Blood Negative (Negative); Urine Clarity Extremely Turbid (Clear); Urine Color Light-Yellow (Yellow); Urine Glucose 3+ (Negative); Urine Ketones NEGATIVE (Negative); Urine Nitrite 1+ (Negative); Urine Protein NEGATIVE (Negative); Urine Urobilinogen Normal (Normal); Urine pH 6.5 (5.0-7.0)
[2024-03-12] MEDS: HOME MED 1 EA UNK (Estradiol [Estradiol] 42.5 GM Cream.Appl) VAG SCH (21:00)
[2024-03-13 05:08] LABS: Anion Gap 7.8 mEq/L (5.0-15.0); Potassium 3.8 mEq/L (3.5-5.1)
[2024-03-13 05:09] LABS: Absolute Basophils 0.1 K/uL (0-0.5); Absolute Eosinophils 0.1 K/uL (0-0.5); Absolute Monocytes 0.8 K/uL (0.1-1.3); Absolute Neutrophil 4.3 K/uL (1.8-8.0); Basophils % 0.7 % (0-1.3); Eosinophils % 1.5 % (0-4.4); Hematocrit 35.3 % (36.0-45.0); Hemoglobin 11.8 g/dL (12.0-15.0); Lymphocytes % 27.7 % (15.3-44.8); MCH 27.1 pg (27.0-35.0); MCHC 33.4 g/dL (32.0-36.0); MCV 81.1 fL (80-100); MPV 7.5 fL (7.6-11.3); Neutrophils % 59.1 % (41.7-73.7); Nucleated Red Blood Cells % 0.1 % (0-0); Platelets 423 thou/uL (152-406); RBC Red Blood Cell Count 4.35 M/uL (3.86-4.86); Red Cell Distribution Width 17.1 % (12.1-15.2)
[2024-03-13] MEDS: POTASSIUM 25 MEQ EFFERV TAB PO ONE (05:38)
[2024-03-13] MEDS ORDERED: KCL 20 MEQ/100 mL IVPB 20 MEQ/100 ML BAG IV SCH (07:00)
[2024-03-13] MEDS: HOME MED 1 EA UNK (Fenofibrate,Micronized [Fenofibrate] 134 MG Capsule) PO SCH (09:00)
[2024-03-13] MEDS: [UNRECOGNIZED DRUG - OTHER] PO SCH (09:00)
--- NOTE | 2024-03-13 09:15 | P.DS ---
Admission Date: 03/08/24 Discharge Date: 03/13/24 Disposition: ROUTINE DISCHARGE Discharge Condition: GOOD Reason for Admission: Hypoglycemia, AMS Brief History of Present Illness: Diagnosis HPI Vital Signs/Physical Exam: Temp Pulse Resp BP Pulse Ox 98.6 F 56 16 160/70 H 98 03/13/24 04:00 03/13/24 04:00 03/13/24 04:00 03/13/24 04:00 03/13/24 04:00 Laboratory Data at Discharge: WBC 7.40 thou/uL (4.3-10.9) 03/13/24 04:10 Hgb 11.8 g/dL (12.0-15.0) L 03/13/24 04:10 Hct 35.3 % (36.0-45.0) L 03/13/24 04:10 Plt Count 423 thou/uL (152-406) H 03/13/24 04:10 Sodium 131 mEq/L (136-145) L 03/13/24 04:10 Potassium 3.8 mEq/L (3.5-5.1) 03/13/24 04:10 BUN 23 mg/dL (7-18) H 03/13/24 04:10 Creatinine 0.62 mg/dL (0.55-1.02) 03/13/24 04:10 Glucose 180 mg/dL (74-106) H 03/13/24 04:10 Total Bilirubin 0.6 mg/dL (0.2-1.0) 03/12/24 05:02 AST 13 U/L (15-37) L 03/12/24 05:02 ALT 25 U/L (13-56) 03/12/24 05:02 Alkaline Phosphatase 53 U/L (45-117) 03/12/24 05:02 Lipase 18 U/L (13-75) 03/08/24 08:25 Home Medications: Irbesartan [Avapro] 300 mg PO DAILY 03/21/19 Atorvastatin Calcium [Lipitor] 80 mg PO BEDTIME 01/12/21 Docusate [Colace Cap*] 100 mg PO PRN PRN 02/24/21 Polyethylene Glycol 3350 [Miralax] 17 gm PO PRN PRN 02/24/21 Dipyridamole/Aspirin [Aggrenox 25 mg-200 mg Cap*] 1 cap PO BID #60 cap 02/25/21 Pantoprazole [Protonix Tab*] 40 mg PO DAILYAC #30 tab 02/26/21 Bran/Gum/Fib/Caitlin/Psyl/Kelp/Pec [Fiber 6 Tablet] 1 tab PO DAILY 03/08/24 Calcium Carbonate 500 mg PO DAILY 03/08/24 Duloxetine [Cymbalta *] 40 mg PO DAILY 03/08/24 Ergocalciferol (Vitamin D2) [Vitamin D2] 1,250 mcg PO SEECOM 03/08/24 Fenofibrate,Micronized [Fenofibrate] 1 cap PO DAILY 03/08/24 Ferrous Sulfate [Ferrous Sulfate*] 325 mg PO BID 03/08/24 Gabapentin 100 mg PO BEDTIME PRN 03/08/24 Insulin Degludec [Tresiba Flextouch U-100] 60 units SQ BID 03/08/24 L.acidoph,Paracasei, B.lactis [Probiotic] 1 cap PO DAILY 03/08/24 Metformin ER [Glucophage ER*] 2 tab PO BID 03/08/24 Metoprolol Succinate [Toprol Xl*] 100 mg PO BID 03/08/24 Sennosides 1 tab PO DAILY 03/08/24 Tirzepatide [Mounjaro] 2.5 units SQ SEECOM 03/08/24 Tramadol HCl/Acetaminophen [Tramadol-Acetaminophn 37.5-325] 1 tab PO Q6H PRN 03/08/24 estradioL [Estradiol] 0.5 g VG BEDTIME 03/08/24 icosapent ethyL [Icosapent Ethyl] 2 cap PO BID 03/08/24 Ciprofloxacin HCl [Cipro 500 MG Tablet] 500 mg PO DAILY 5 Days #5 tab 03/13/24 Valsartan [Diovan*] 160 mg PO DAILY 30 Days #30 tab 03/13/24 New Medications: Ciprofloxacin HCl [Cipro 500 MG Tablet] 500 mg PO DAILY 5 Days #5 tab Valsartan [Diovan*] 160 mg PO DAILY 30 Days #30 tab Physician Discharge Instructions: UTI was found on repeat UA, Ciprofloxacin ordered, first dose given prior to discharge. Please check your blood sugar before each meal. If you are not eating, please check your blood sugar and record for your doctor. Please ask your doctor for a plan to adjust your insulin dose when you are not feeling well or when you are not planning to eat. Schedule a follow up with your PCP and/or epic anesthesia analyst who is treating your diabetes for further instructions and management. Continue a diabetic diet. Stay hydrated. Return to the ED if symptoms worsen. Diet: ADA Activity: Ad idalia Followup: NONE,NONE [Primary Care Provider] -
[2024-03-13] MEDS: VITAMIN B COMPLEX 1 CAP PO SCH (09:19)
[2024-03-13] MEDS: LACTOBACILLUS/ACIDOPHILUS TAB PO SCH (09:20)
[2024-03-13] MEDS: CIPROFLOXACIN HCL 500 MG TAB PO ONE (09:20)
[2024-03-13 09:58] VITALS: BP 192/63; TEMP 97.9
--- NOTE | 2024-03-15 14:45 | P.PN ---
Date of Service: 03/15/24 patient's family called to get the correct dosage of cipro-advised them that our last DC instructions stated that patient should take the ciprofloxacin twice daily for 5 days
[2024-03-16] MEDS ORDERED: DRISDOL (VITAMIN D=ERGOCALCIFEROL) 50000 UNIT CAP PO SCH (09:00)
--- NOTE | 2024-03-18 11:23 | EKG ---
Test Date: 2024-03-08 Test Time: 09:45:54 Print Decorator: PH MEASUREMENT RESULTS: Intervals: Rate: 61 MN: 208 QRSD: 94 QT: 454 QTc: 457 [place]: P: 73 MN: 208 QRS: -8 T: 29 INTERPRETIVE STATEMENTS: Normal sinus rhythm Nonspecific ST abnormality Abnormal ECG Compared to ECG 12/02/2021 08:23:54 ST (T wave) deviation now present First degree AV block no longer present Electronically Signed On 03-18-24 11:16:05 [employer] by Marcellus Ruby
== END 2024-03-13 10:06 | disposition home or self-care (01) | DRG 637 ==
LOC: ER 08:09 → ERHOLD 12:13 → 2ND 12:40
PROVIDERS: ADMIT Hospitalist; ATTEND Internal Medicine
DX: E11.649 Type 2 diabetes mellitus with hypoglycemia without coma (principal); G92.8 Other toxic encephalopathy; N39.0 Urinary tract infection, site not specified; I10 Essential (primary) hypertension; G89.29 Other chronic pain; M54.30 Sciatica, unspecified side; E78.00 Pure hypercholesterolemia, unspecified; I25.10 Atherosclerotic heart disease of native coronary artery without angina pectoris; I25.2 Old myocardial infarction; T50.995A Adverse effect of other drugs, medicaments and biological substances, initial encounter; R29.6 Repeated falls; Z91.81 History of falling; Z88.5 Allergy status to narcotic agent; Z88.8 Allergy status to other drugs, medicaments and biological substances; Z95.5 Presence of coronary angioplasty implant and graft; Z95.1 Presence of aortocoronary bypass graft; Z79.4 Long term (current) use of insulin; Z79.82 Long term (current) use of aspirin; Z90.49 Acquired absence of other specified parts of digestive tract; Z86.73 Personal history of transient ischemic attack (TIA), and cerebral infarction without residual deficits; Z79.899 Other long term (current) drug therapy; Z90.710 Acquired absence of both cervix and uterus; Z85.828 Personal history of other malignant neoplasm of skin
CPT/HCPCS: 36415; 51702; 70450; 71045; 74176; 80048; 80053; 80307; 81001; 82140; 82947; 83690; 84132; 84145; 84439; 84443; 84484; 85025; 87077; 87086; 87088; 87186; 93005; 96361; 96374; 96375; 97116; 97161; 97530; 99285; J0360; J1171; J1200; J1630; J1650; J2003; J2270; J2405; J7030; J7799

== ENCOUNTER 2024-03-23 14:18 | Inpatient (IN) | payer OTHER ==
[2024-03-23] MEDS ORDERED: ONDANSETRON 4 MG/2 ML VIAL ONE (16:22)
--- NOTE | 2024-03-23 16:36 | RAD REPORT ---
EXAMINATION: CT stroke WITHOUT CONTRAST CLINICAL INDICATION: Female, 73 years old.STROKE ALERT TECHNIQUE: Axial CT images from the skull base to the vertex without intravenous contrast. Coronal an d sagittal reformatted images were created from the data set. One or more of the following dose reduction techniques were used: Automated exposure control, adjustment of the mA and/or kV according to patient size, and/or iterative reconstruction. Unless otherwise specified, incidental findings do not require dedicated imaging follow-up. [id number]. COMPARISON: 03/08/2024 FINDINGS: INTRACRANIAL: No acute intracranial hemorrhage. No hydrocephalus. No mass effect or midline shift. Se wili chronic small vessel ischemic changes.Remote left frontal cortical infarct and cabrales radiata infarct. VASCULATURE: No visualized abnormalities in the arteries or dural venous sinuses. SCALP/SKULL: No significant soft tissue or osseous abnormalities. SINUSES: The visualized paranasal sinuses and mastoid air cells are predominantly clear. IMPRESSION: No acute intracranial abnormality. THIS REPORT CONTAINS FINDINGS THAT MAY BE CRITICAL TO PATIENT CARE. The emergent findings were commun icated to C Page on 03/23/2024 4:33 PM.
--- NOTE | 2024-03-23 17:02 | RAD REPORT ---
EXAM: Chest Single View HISTORY: slurred speech COMPARISON: 03/08/2024 FINDINGS: LUNGS/PLEURA: The lungs are clear. No pleural effusions or pneumothorax. No pulmonary edema. MEDIASTINUM: The mediastinal silhouette is within normal limits. CARDIAC: The cardiac silhouette is within normal limits. UPPER ABDOMEN: No significant abnormality. BONES: No acute abnormality. LINES/TUBES/OTHER: N/A IMPRESSION: No evidence of acute cardiopulmonary disease.
[2024-03-23 17:10] LABS: Absolute Eosinophils 0.1 K/uL (0-0.5); Absolute Lymphocytes (CBC) 2.3 K/uL (0.7-4.9); Absolute Monocytes 0.6 K/uL (0.1-1.3); Absolute Neutrophil 6.8 K/uL (1.8-8.0); Basophils % 0.5 % (0-1.3); Eosinophils % 0.8 % (0-4.4); Hematocrit 35.3 % (36.0-45.0); Hemoglobin 11.9 g/dL (12.0-15.0); Lymphocytes % 23.9 % (15.3-44.8); MCH 27.3 pg (27.0-35.0); MCHC 33.7 g/dL (32.0-36.0); MCV 81.1 fL (80-100); MPV 7.5 fL (7.6-11.3); Monocytes % 5.7 % (3.3-12.3); Neutrophils % 69.1 % (41.7-73.7); Nucleated Red Blood Cells % 0.1 % (0-0); Platelets 444 thou/uL (152-406); RBC Red Blood Cell Count 4.36 M/uL (3.86-4.86); Red Cell Distribution Width 16.9 % (12.1-15.2)
[2024-03-23] MEDS ORDERED: D10W 250 ML IV ONE (17:14)
[2024-03-23 17:41] LABS: PT Prothrombin Time 11.6 SECONDS (9.4-12.5); PTT, Activated Partial Thromb 27.1 SECONDS (24.3-36.9); Protime INR 1.11
[2024-03-23 17:50] LABS: ALT/SGPT 24 U/L (13-56); AST/SGOT 19 U/L (15-37); Albumin 2.8 g/dL (3.4-5.0); Albumin/Globulin Ratio 0.8 (1.1-1.8); Alkaline Phosphatase 38 U/L (45-117); Anion Gap 11.3 mEq/L (5.0-15.0); BUN Blood Urea Nitrogen 30 mg/dL (7-18); Bicarbonate 27 mEq/L (21-32); Bilirubin Total 0.4 mg/dL (0.2-1.0); Globulin 3.6 g/dL (2.3-3.5); Glomerular Filtration Rate 59 ml/min (=/>90); Glucose Level 92 mg/dL (74-106); Magnesium 1.6 mg/dL (1.6-2.4); Potassium 4.3 mEq/L (3.5-5.1); Protein, Total 6.4 g/dL (6.4-8.2); Sodium Level 132 mEq/L (136-145); Troponin High Sensitivity 7.7 pg/mL (<58.9)
[2024-03-23 17:53] LABS: Bilirubin Direct < 0.2 mg/dL (0-0.2); Bilirubin Indirect, Calculated 0.2 mg/dL (0.2-0.8)
[2024-03-23 18:05] LABS: Specific Gravity 1.016 (1.005-1.030); Sqamous Epithelial <5 /HPF (None Seen); Urine Bacteria <20 /HPF (<20); Urine Bilirubin NEGATIVE (Negative); Urine Blood 1+ (Negative); Urine Clarity Extremely Turbid (Clear); Urine Color Yellow (Yellow); Urine Culture Reflex Order REFLEXED; Urine Glucose NEGATIVE (Negative); Urine Ketones NEGATIVE (Negative); Urine Micro Reflex YN NO BILL MICROSCOPIC; Urine Mucus Slight /HPF (None Seen); Urine Nitrite NEGATIVE (Negative); Urine Protein TRACE (Negative); Urine Urobilinogen Normal (Normal); Urine WBC >50 /HPF (<5); Urine WBC Clump Few /HPF (None Seen); Urine pH 5.5 (5.0-7.0)
--- NOTE | 2024-03-23 18:18 | ER ---
Nurse's Notes [facility] Name: Fela Ayoub Age: 73 yrs Sex: Female : 1950 Arrival Date: 03/23/2024 Time: 14:18 Bed 18 Private MD: Diagnosis: Facial weakness;Other speech disturbances;Weakness;UTI/ Urinary tract infection, site not specified Presentation: 03/23 15:42 Chief complaint: EMS states: toned out for left sided facial droop and slurred speech me1 for about 15 minutes this morning that has sense resolved. Patient herself has no complaints. Dx with UTI 03/08/24 and has completed antibiotics. Coronavirus screen: Vaccine status: Patient reports receiving the 2nd dose of the covid vaccine. Ebola Screen: No symptoms or risks identified at this time. Initial Sepsis Screen: Does the patient meet any 2 criteria?. Risk Assessment: Do you want to hurt yourself or someone else? Patient reports no desire to harm self or others. Onset of symptoms was March 23, 2024 at 13:00. 15:42 Method Of Arrival: EMS: [facility] mo1 15:42 Acuity: ALE 3 me1 15:42 No acute neurological deficit is noted. Initial Sepsis Screen: Does the patient meet me1 any 2 criteria? No. Patient's initial sepsis screen is negative. Does the patient have a suspected source of infection? No. Patient's initial sepsis screen is negative. 17:10 The patients blood glucose was checked before arriving to the hospital and was found to me1 be normal. Triage Assessment: 15:46 The onset of the patients symptoms was March 23, 2024 at 13:06. General: Appears in me1 no apparent distress. comfortable, well groomed, well developed, well nourished, Behavior is calm, cooperative, appropriate for age. Pain: Denies pain. EENT: No signs and/or symptoms were reported regarding the EENT system. Neuro: Level of Consciousness is awake, alert, obeys commands, Oriented to person, place, time, situation, Appropriate for age Reports family reports left sided facial droop and slurred speech. Cardiovascular: Patient's skin is warm and dry. Respiratory: Airway is patent Respiratory effort is even, unlabored, Respiratory pattern is regular, symmetrical. GI: No signs and/or symptoms were reported involving the gastrointestinal system. : No signs and/or symptoms were reported regarding the genitourinary system. Derm: Skin is intact, is healthy with good turgor, Skin is pink, warm \\T\\ dry. Musculoskeletal: No signs and/or symptoms reported regarding the musculoskeletal system. Stroke Activation: Symptom onset > 6 hours Physician: ED Attending; Name: ; Notified At: ; Arrived At: Physician: Mid-Level Provider; Name: ; Notified At: ; Arrived At: Physician: [not used]; Name: ; Notified At: ; Arrived At: Physician: [not used]; Name: ; Notified At: ; Arrived At: Physician: [not used]; Name: ; Notified At: ; Arrived At: Historical: - Allergies: 15:46 Hydrocodone-Acetaminophen; hallucination; me1 15:46 Iodine; me1 15:46 Plavix; me1 - PMHx: 15:46 Cerebrovascular accident; CHRONIC URINARY TRACT INFECTION; Diabetes - IDDM; High me1 Cholesterol; Hypertension; Myocardial infarction; squamous cell carcinoma; - PSHx: 15:46 cardiac stents; section; Cholecystectomy; Coronary artery bypass graft; Total me1 abdominal hysterectomy; - Immunization history:: Adult Immunizations up to date. - Infectious Disease History:: Denies. - Social history:: Smoking status: Patient denies any tobacco usage or history of. Screenin:46 [facility] ED Fall Risk Assessment (Adult) History of falling in the last 3 months, me1 including since admission Yes- fall prone (multiple falls) (3 pts) Confusion or Disorientation No (0 pts) Intoxicated or Sedated No (0 pts) Impaired Gait Yes (1 pt) Mobility Assist Device Used Yes (1 pt) Altered Elimination Yes (1 pt) Score/Fall Risk Level 3 or more points = High Risk Maintained a safe environment, Hourly rounding (assess needs \\T\\ fall precautionary measures) done, Used ambulatory aids as needed (educated on \\T\\ assisted with). Abuse screen: Denies threats or abuse. Nutritional screening: No deficits noted. Tuberculosis screening: No symptoms or risk factors identified. Assessment: 15:46 General: See triage assessment.. me1 16:00 General: EMS called in for a patient who was altered and having an increase in falls, ap3 but had "cleared the Stroke scale". when speaking with the , he stated "we have been dealing with these issues for a while" and was unable to give a specific time frame of patient change in condition. He did report that she was "what I call normal for [place]". Patients daughter came to bedside and reported that the patient was having changes over time, and that they had noticed more of a change in the last "three days or so". Daughter also reported that during breakfast patient was slurring speech. was unable to give accurate time frame of last known "normal". . 16:25 VAN Scoring: Arm Drift: Patients demonstrates NO arm weakness. Patient is VAN Negative. me1 Visual Disturbance: No visual disturbance noted. Aphasia: No aphasia noted. Neglect: No neglect noted. Priti Swallow Protocol 3 oz Water Swallow Challenge:. [place] Swallow Protocol Exclusion Criteria: Unable to remain alert for testing: No NPO for medical/surgical reason by provider order No Head-of-bed restricted <30 degrees Tracheostomy tube present No No thin liquids due to preexisting dysphagia/baseline modified diet thickened liquids No Brief Cognitive Screen What is your name? Normal, Where are you right now? Normal, What year is it? Normal. Oral Mechanism Examination Facial Symmetry: Normal, Motion: Normal, Lip Closure: Normal, Oral Mechanism Result: Normal. Result: PASS MD Notified: Ladarius BAJWA. 16:25 TNKase (Tenecteplase) Screening: Contraindications: Patient reports onset of signs and me1 symptoms of stroke greater than 6 hours ago: Yes. 17:45 Reassessment: Ok per AYDEE Caputo to stop q 15 vitals at this time. me1 Vital Signs: 15:42 BP 101 / 53; Pulse 59; Resp 17; Temp 97.7; Pulse Ox 94% ; Weight 90.72 kg; Height 5 ft. me1 3 in. ; 16:00 BP 113 / 101; Pulse 62; Resp 16; Pulse Ox 97% on R/A; me1 16:15 BP 109 / 54; Pulse 58; Resp 15; Pulse Ox 98% ; me1 16:30 BP 117 / 51; Pulse 57; Resp 13; Pulse Ox 100% ; me1 16:45 BP 112 / 54; Pulse 56; Resp 14; Pulse Ox 98% ; me1 17:00 BP 117 / 56; Pulse 57; Resp 12; Pulse Ox 100% ; me1 17:15 BP 119 / 60; Pulse 61; Resp 19; Pulse Ox 99% ; me1 17:30 BP 116 / 62; Pulse 58; Resp 18; Pulse Ox 99% ; me1 17:45 BP 107 / 55; Pulse 58; Resp 13; Pulse Ox 100% ; me1 18:00 BP 105 / 50; Pulse 59; Resp 16; Pulse Ox 100% ; me1 19:00 BP 101 / 82; Pulse 77; Resp 16; Pulse Ox 98% ; me1 20:00 BP 116 / 49; Pulse 64; Resp 14; Temp 98.4; Pulse Ox 99% ; me1 21:00 BP 116 / 83; Pulse 57; Resp 17; Pulse Ox 100% ; me1 15:42 Body Mass Index 35.43 (90.72 kg, 160.02 cm) me1 NIH Stroke Scale Scores: 16:05 NIHSS Score: 0 cp 16:25 NIHSS Score: 0 mo1 ED Course: 15:38 Patient arrived in ED. me1 15:42 Ladarius Wells PA is PHCP. cp 15:42 Ladarius Alonso MD is Attending Physician. cp 15:46 Triage completed. me1 15:46 Arm band placed on Patient placed in an exam room. me1 15:46 Patient has correct armband on for positive identification. Bed in low position. Call [facility] light in reach. Side rails up X2. Provided Education on: POC. Verbalized understanding.. Client placed on continuous cardiac and pulse oximetry monitoring. NIBP monitoring applied. pvc monitor on. Pulse ox on. NIBP on. 15:46 No provider procedures requiring assistance completed. me1 16:26 CT Stroke Brain w/o Contrast In Process Unspecified. EDMS 16:31 Selena Aguilera, RN is Primary Nurse. me1 16:46 Stroke CXR 1 View In Process Unspecified. EDMS 17:08 Basic Metabolic Panel Sent. me1 17:08 CBC with Diff Sent. me1 17:08 Hepatic Function Sent. me1 17:08 High Sensitivity Troponin Sent. me1 17:08 Magnesium Sent. me1 17:08 Protime (+inr) Sent. me1 17:08 Ptt, Activated Sent. me1 17:08 Maintain EMS IV. Dressing intact. Good blood return noted. Site clean \\T\\ dry. Gauge \\T\\ me 1 site: 20g RAC. Flushed with 10 mL NS. 18:16 Emory Hurtado MD is Hospitalizing Provider. cp 20:17 Patient admitted, IV remains in place. me1 Administered Medications: 16:23 Drug: Ondansetron IVP 4 mg IVP once; over 2 minutes Route: IVP; Site: right antecubital;me1 17:07 Follow up: Response: No adverse reaction; Nausea is decreased me1 17:19 Drug: D10 in Water IVP 125 ml IVP once Route: IVP; Site: right antecubital; me1 17:49 Follow up: Response: No adverse reaction me1 18:29 Drug: foLIC Acid IVPB 1 mg IVPB once Route: IVPB; Site: right antecubital; me1 18:59 Follow up: Response: No adverse reaction; IV Status: Completed infusion me1 18:29 Drug: Aspirin PO 81 mg PO once Route: PO; me1 19:01 Follow up: Response: No adverse reaction me1 19:01 Drug: traMADol PO 50 mg PO once Route: PO; me1 20:27 Follow up: Response: No adverse reaction; Pain is decreased me1 19:08 Drug: Rocephin IV 1 grams IV at calculated rate once; Given slow IV push per pharmacy me1 instructions Route: IV; Rate: calculated rate; Site: right antecubital; 20:27 Follow up: Response: No adverse reaction; IV Status: Completed infusion me1 Medication: 15:46 VIS not applicable for this client. me1 Outcome: 18:18 Decision to Hospitalize by Provider. cp 20:17 Admitted to Med/surg accompanied by tech, via wheelchair, room 232, with chart, Report me1 called to faxed, receipt confirmed with Miller 20:17 Condition: stable 20:17 Instructed on the need for admit, 21:23 Patient left the ED. vc1 NIH Stroke Scale - NIH Stroke Score Date: 03/23/2024 Time: 16:05 Total Score = 0 10. Dysarthria (speech clarity - read or repeat words) - 0(Normal) 11. Extinction and Inattention (visual/tactile/auditory/spatial/personal) - 0(No abnormality) 1a. Level of Consciousness (LOC) - 0(Alert) 1b. Level of Consciousness (LOC) (Month \\T\\ Age) - 0(Both) 1c. LOC Commands (Open \\T\\ Closes Eyes/Medical Staff Coordinator) - 0(Both) 2. Best Gaze (Lateral Gaze Paresis) - 0(Normal) 3. Visual Field Loss - 0(No visual loss) 4. Facial Palsy - 0(Normal) 5a. Left Arm: Motor (10-second hold) - 0(No drift) 5b. Right Arm: Motor (10-second hold) - 0(No drift) 6a. Left Leg: Motor (5-second hold - always test supine) - 0(No drift) 6b. Right Leg: Motor (5-second hold - always test supine) - 0(No drift) 7. Limb Ataxia (finger/nose \\T\\ heel/crow - test with eyes open) - 0(Absent) 8. Sensory Loss (pinprick arms/legs/face) - 0(Normal) 9. Best Language: Aphasia (description/naming/reading) - 0(No aphasia) Initials: cp NIH Stroke Scale - NIH Stroke Score Date: 03/23/2024 Time: 16:25 Total Score = 0 10. Dysarthria (speech clarity - read or repeat words) - 0(Normal) 11. Extinction and Inattention (visual/tactile/auditory/spatial/personal) - 0(No abnormality) 1a. Level of Consciousness (LOC) - 0(Alert) 1b. Level of Consciousness (LOC) (Month \\T\\ Age) - 0(Both) 1c. LOC Commands (Open \\T\\ Closes Eyes/Medical Staff Coordinator) - 0(Both) 2. Best Gaze (Lateral Gaze Paresis) - 0(Normal) 3. Visual Field Loss - 0(No visual loss) 4. Facial Palsy - 0(Normal) 5a. Left Arm: Motor (10-second hold) - 0(No drift) 5b. Right Arm: Motor (10-second hold) - 0(No drift) 6a. Left Leg: Motor (5-second hold - always test supine) - 0(No drift) 6b. Right Leg: Motor (5-second hold - always test supine) - 0(No drift) 7. Limb Ataxia (finger/nose \\T\\ heel/crow - test with eyes open) - 0(Absent) 8. Sensory Loss (pinprick arms/legs/face) - 0(Normal) 9. Best Language: Aphasia (description/naming/reading) - 0(No aphasia) Initials: me1 Signatures: Dispatcher [employer] EDMS Ladarius Wells PA PA cp Prokisch, Amanda RN RN ap3 Charley Christie RN RN vc1 Selena Aguilera, RN RN me1 Corrections: (The following items were deleted from the chart) 15:54 15:42 90.72 kg; Height 5 ft. 3 in.; BMI: 35.4; me1 me1 03/24 08:08 03/23 16:00 General: EMS called in for a patient who was altered and having an ap3 increase in falls, but had "cleared the Stroke scale". when speaking with the , he stated "we have been dealing with these issues for a while" and was unable to give a specific time frame of patient change in condition. He did report that she was "what I call normal for [place]". Patients daughter came to bedside and reported that the patient was having changes over time, and that they had noticed more of a change in the last "three days or so". . ap3
--- NOTE | 2024-03-23 18:18 | EDPHYS ---
Physician Documentation [facility] Name: Fela Ayoub Age: 73 yrs Sex: Female : 1950 Arrival Date: 03/23/2024 Time: 14:18 Bed 18 Private MD: ED Physician Ladarius Alonso HPI: 03/23 15:54 This 73 yrs old Female presents to ER via EMS with complaints of Slurred Speech. cp 15:54 The patient presents to the emergency department with weakness of the entire body, cp generalized weakness, a speech or higher order brain function problem, aphasia, facial droop. Onset: The symptoms/episode began/occurred gradually, since [place]. 15:55 Context: occurred at home. cp 15:55 Patient's baseline: Neuro: alert and fully oriented, Motor: no deficits, Ambulation: cp walks with assist only, Speech: normal, The patient has a previous history of CVA. Current symptoms: altered mental status and general weakness. Historical: - Allergies: 15:46 Hydrocodone-Acetaminophen; hallucination; me1 15:46 Iodine; me1 15:46 Plavix; me1 - PMHx: 15:46 Cerebrovascular accident; CHRONIC URINARY TRACT INFECTION; Diabetes - IDDM; High me1 Cholesterol; Hypertension; Myocardial infarction; squamous cell carcinoma; - PSHx: 15:46 cardiac stents; section; Cholecystectomy; Coronary artery bypass graft; Total me1 abdominal hysterectomy; - Immunization history:: Adult Immunizations up to date. - Infectious Disease History:: Denies. - Social history:: Smoking status: Patient denies any tobacco usage or history of. ROS: 15:57 Neuro: Positive for altered mental status, speech changes, weakness, facial droop, cp Negative for headache, 15:57 Constitutional: Negative for body aches, chills, fever, poor PO intake, cp 15:57 Eyes: Negative for injury, pain, redness, and discharge, cp 15:57 Cardiovascular: Negative for chest pain, palpitations, 15:57 Respiratory: Negative for cough, shortness of breath, wheezing, 15:57 Abdomen/GI: Negative for abdominal pain, nausea, vomiting, and diarrhea, 15:57 : Negative for urinary symptoms, 15:57 All other systems are negative, Exam: 16:05 Constitutional: The patient appears in no acute distress, alert, awake, cp non-diaphoretic, non-toxic, well developed, well nourished, 16:05 Head/Face: Normocephalic, atraumatic. cp 16:05 Eyes: Periorbital structures: appear normal, Pupils: equal, round, and reactive to light and accomodation, Extraocular movements: intact throughout, Conjunctiva: normal, no exudate, no injection, Sclera: no appreciated abnormality, Lids and lashes: appear normal, 16:05 ENT: External ear(s): are unremarkable, Nose: is normal, Mouth: Lips: moist, Oral mucosa: moist, Posterior pharynx: Airway: no evidence of obstruction, patent, 16:05 Chest/axilla: Inspection: normal, 16:05 Cardiovascular: Rate: bradycardic, Rhythm: regular, Edema: is not appreciated, JVD: is not appreciated, 16:05 Respiratory: the patient does not display signs of respiratory distress, Respirations: normal, no use of accessory muscles, no retractions, labored breathing, is not present, Breath sounds: are clear throughout, no decreased breath sounds, no stridor, no wheezing, 16:05 Abdomen/GI: Inspection: abdomen appears normal, Palpation: abdomen is soft and non-tender, in all quadrants, 16:05 Neuro: Orientation: to person, situation, Mentation: able to follow commands, Motor: moves all fours, no focal deficits, 16:55 ECG was reviewed by the Attending Physician. cp Vital Signs: 15:42 BP 101 / 53; Pulse 59; Resp 17; Temp 97.7; Pulse Ox 94% ; Weight 90.72 kg; Height 5 ft. me1 3 in. ; 16:00 BP 113 / 101; Pulse 62; Resp 16; Pulse Ox 97% on R/A; me1 16:15 BP 109 / 54; Pulse 58; Resp 15; Pulse Ox 98% ; me1 16:30 BP 117 / 51; Pulse 57; Resp 13; Pulse Ox 100% ; me1 16:45 BP 112 / 54; Pulse 56; Resp 14; Pulse Ox 98% ; me1 17:00 BP 117 / 56; Pulse 57; Resp 12; Pulse Ox 100% ; me1 17:15 BP 119 / 60; Pulse 61; Resp 19; Pulse Ox 99% ; me1 17:30 BP 116 / 62; Pulse 58; Resp 18; Pulse Ox 99% ; me1 17:45 BP 107 / 55; Pulse 58; Resp 13; Pulse Ox 100% ; me1 18:00 BP 105 / 50; Pulse 59; Resp 16; Pulse Ox 100% ; me1 19:00 BP 101 / 82; Pulse 77; Resp 16; Pulse Ox 98% ; me1 20:00 BP 116 / 49; Pulse 64; Resp 14; Temp 98.4; Pulse Ox 99% ; me1 21:00 BP 116 / 83; Pulse 57; Resp 17; Pulse Ox 100% ; me1 15:42 Body Mass Index 35.43 (90.72 kg, 160.02 cm) me1 NIH Stroke Scale Scores: 16:05 NIHSS Score: 0 cp 16:25 NIHSS Score: 0 ct1 MDM: 15:42 Medical Screening Exam initiated cp 16:31 ED course: patient is not a tnk candidate as specific time of onset of symptoms cp undetermined. 17:41 Management of patient was discussed with the following: Piece Work Checker: DR Ivey who cp will consult. Independent interpretation of the following test(s) in the Emergency Department EKG: See my EKG interpretation above. Historians other than the Patient: Family Member: and daughter. Care significantly affected by the following chronic conditions: Diabetes, Hypertension. 18:20 Data reviewed: vital signs, nurses notes, lab test result(s), EKG, radiologic studies, cp CT scan, plain films. 18:20 Management of patient was discussed with the following: Hospitalist: DR Hurtado who will cp admit after discussion. I considered the following discharge prescriptions or medication management in the emergency department Medications were administered in the Emergency Department. See MAR. Counseling: I had a detailed discussion with the patient and/or guardian regarding the historical points, exam findings, and any diagnostic results supporting the discharge/admit diagnosis, lab results, radiology results, the need for further work-up and treatment in the hospital. Response to treatment: the patient's symptoms have mildly improved after treatment. 03/23 15:57 Order name: Basic Metabolic Panel; Complete Time: 18:07 cp 03/23 15:57 Order name: CBC with Diff; Complete Time: 17:38 cp 03/23 17:39 Interpretation: Normal except: HGB 11.9; HCT 35.3; PLT 444; RDW 16.9; MPV 7.5. cp 03/23 15:57 Order name: Hepatic Function; Complete Time: 18:07 cp 03/23 15:57 Order name: High Sensitivity Troponin; Complete Time: 18:07 cp 03/23 15:57 Order name: Magnesium; Complete Time: 18:07 cp 03/23 15:57 Order name: Protime (+inr); Complete Time: 18:07 cp 03/23 15:57 Order name: Ptt, Activated; Complete Time: 18:07 cp 03/23 15:57 Order name: Urinalysis W/Microscopic; Complete Time: 18:07 cp 03/23 17:15 Order name: Glucose, Ancillary Testing; Complete Time: 17:18 EDMS 03/23 18:09 Order name: Urine Culture EDMS 03/23 19:58 Order name: Urinalysis w/ reflexes EDMS 03/23 19:58 Order name: CBC with Automated Diff EDMS 03/23 19:58 Order name: CBC with Automated Diff EDMS 03/23 19:58 Order name: Comprehensive Metabolic Panel EDMS 03/23 19:58 Order name: Comprehensive Metabolic Panel EDMS 03/23 15:57 Order name: CT Stroke Brain w/o Contrast; Complete Time: 16:43 cp 03/23 16:43 Interpretation: Report reviewed. cp 03/23 15:57 Order name: Stroke CXR 1 View; Complete Time: 17:04 cp 03/23 17:04 Interpretation: Report review. cp 03/23 15:57 Order name: Accucheck; Complete Time: 17:07 cp 03/23 15:57 Order name: Cardiac monitoring; Complete Time: 16:33 cp 03/23 15:57 Order name: EKG - Nurse/Tech; Complete Time: 17:07 cp 03/23 15:57 Order name: IV Saline Lock; Complete Time: 17:08 cp 03/23 15:57 Order name: Labs collected and sent; Complete Time: 17:08 cp 03/23 15:57 Order name: NPO; Complete Time: 16:33 cp 03/23 15:57 Order name: O2 Per Protocol; Complete Time: 16:33 cp 03/23 15:57 Order name: O2 Sat Monitoring; Complete Time: 16:33 cp 03/23 15:57 Order name: Stroke Swallow Screen; Complete Time: 17:08 cp 03/23 15:57 Order name: Cath; Complete Time: 18:09 cp 03/23 16:46 Order name: Labs - recollect needed: recollect all the labs/mislabeled per lab; eb Complete Time: 17:07 EC:55 Rate is 57 beats/min. Rhythm is regular. CA interval is prolonged at 240 msec. QRS cp interval is normal. QT interval is normal. T waves are Inverted in lead aVR. Interpreted by me. Reviewed by me. Administered Medications: 16:23 Drug: Ondansetron IVP 4 mg IVP once; over 2 minutes Route: IVP; Site: right antecubital;me1 17:07 Follow up: Response: No adverse reaction; Nausea is decreased me1 17:19 Drug: D10 in Water IVP 125 ml IVP once Route: IVP; Site: right antecubital; me1 17:49 Follow up: Response: No adverse reaction me1 18:29 Drug: foLIC Acid IVPB 1 mg IVPB once Route: IVPB; Site: right antecubital; me1 18:59 Follow up: Response: No adverse reaction; IV Status: Completed infusion me1 18:29 Drug: Aspirin PO 81 mg PO once Route: PO; me1 19:01 Follow up: Response: No adverse reaction me1 19:01 Drug: traMADol PO 50 mg PO once Route: PO; me1 20:27 Follow up: Response: No adverse reaction; Pain is decreased me1 19:08 Drug: Rocephin IV 1 grams IV at calculated rate once; Given slow IV push per pharmacy me1 instructions Route: IV; Rate: calculated rate; Site: right antecubital; 20:27 Follow up: Response: No adverse reaction; IV Status: Completed infusion me1 Disposition Summary: 03/23/24 18:18 Hospitalization Ordered Notes: Hospitalization Status: Inpatient Admission cp Provider: Emory Hurtado cp Location: Telemetry/MedSurg (Inpatient) cp Condition: Stable cp Problem: new cp Symptoms: have improved cp Bed/Room Type: Standard cp Room Assignment: 232(03/23/24 20:08) hw Diagnosis - Facial weakness cp - Other speech disturbances cp - Weakness cp - UTI/ Urinary tract infection, site not specified cp Forms: - Medication Reconciliation Form cp - SBAR form cp - Leadership Thank You Letter cp NIH Stroke Scale - NIH Stroke Score Date: 03/23/2024 Time: 16:05 Total Score = 0 10. Dysarthria (speech clarity - read or repeat words) - 0(Normal) 11. Extinction and Inattention (visual/tactile/auditory/spatial/personal) - 0(No abnormality) 1a. Level of Consciousness (LOC) - 0(Alert) 1b. Level of Consciousness (LOC) (Month \T\ Age) - 0(Both) 1c. LOC Commands (Open \T\ Closes Eyes/Ski Topper) - 0(Both) 2. Best Gaze (Lateral Gaze Paresis) - 0(Normal) 3. Visual Field Loss - 0(No visual loss) 4. Facial Palsy - 0(Normal) 5a. Left Arm: Motor (10-second hold) - 0(No drift) 5b. Right Arm: Motor (10-second hold) - 0(No drift) 6a. Left Leg: Motor (5-second hold - always test supine) - 0(No drift) 6b. Right Leg: Motor (5-second hold - always test supine) - 0(No drift) 7. Limb Ataxia (finger/nose \T\ heel/crow - test with eyes open) - 0(Absent) 8. Sensory Loss (pinprick arms/legs/face) - 0(Normal) 9. Best Language: Aphasia (description/naming/reading) - 0(No aphasia) Initials: cp NIH Stroke Scale - NIH Stroke Score Date: 03/23/2024 Time: 16:25 Total Score = 0 10. Dysarthria (speech clarity - read or repeat words) - 0(Normal) 11. Extinction and Inattention (visual/tactile/auditory/spatial/personal) - 0(No abnormality) 1a. Level of Consciousness (LOC) - 0(Alert) 1b. Level of Consciousness (LOC) (Month \T\ Age) - 0(Both) 1c. LOC Commands (Open \T\ Closes Eyes/Ski Topper) - 0(Both) 2. Best Gaze (Lateral Gaze Paresis) - 0(Normal) 3. Visual Field Loss - 0(No visual loss) 4. Facial Palsy - 0(Normal) 5a. Left Arm: Motor (10-second hold) - 0(No drift) 5b. Right Arm: Motor (10-second hold) - 0(No drift) 6a. Left Leg: Motor (5-second hold - always test supine) - 0(No drift) 6b. Right Leg: Motor (5-second hold - always test supine) - 0(No drift) 7. Limb Ataxia (finger/nose \T\ heel/crow - test with eyes open) - 0(Absent) 8. Sensory Loss (pinprick arms/legs/face) - 0(Normal) 9. Best Language: Aphasia (description/naming/reading) - 0(No aphasia) Initials: ct1 Addendum: 03/27/2024 07:28 Co-signature as Attending Physician, Ladarius Alonso MD I agree with the [facility] assessment and plan of care. Signatures: Dispatcher [employer] EDMS Ladarius Alonso MD MD [facility] Miki, Jet, PACKING TRACTOR MACHINE OPERATOR-C PACKING TRACTOR MACHINE OPERATOR-Cla1 Ladarius Wells PA PA cp Botello, Elizabeth eb Eddleman, Michelle RN RN me1 iLda Cortes Corrections: (The following items were deleted from the chart) 03/23 15:58 15:57 BASIC METABOLIC PANEL+C.LAB.BRZ ordered. EDMS EDMS 15:58 15:57 CBC+H.LAB.BRZ ordered. EDMS EDMS 15:58 15:57 HEPATIC FUNCTION+C.LAB.BRZ ordered. EDMS EDMS 15:58 15:57 Troponin High Sensitivity+C.LAB.BRZ ordered. EDMS EDMS 15:58 15:57 MAGNESIUM+C.LAB.BRZ ordered. EDMS EDMS 15:58 15:57 PROTIME (+INR)+COAG.LAB.BRZ ordered. EDMS EDMS 15:58 15:57 PTT, ACTIVATED+COAG.LAB.BRZ ordered. EDMS EDMS 15:58 15:57 Urinalysis W/Microscopic+U.LAB.BRZ ordered. EDMS EDMS 15:58 15:58 CT-STROKE BRAIN W/O CONTRAST+CT.RAD.BRZ ordered. EDMS EDMS 15:58 15:58 Chest Single View+RAD.RAD.BRZ ordered. EDMS EDMS 16:33 15:54 The patient presents to the emergency department with weakness of the cp entire body, generalized weakness, cp 20:08 18:18 cp hw
[2024-03-23] MEDS ORDERED: ASPIRIN 81 MG CHEWABLE TABLET ONE (18:19)
[2024-03-23] MEDS ORDERED: FOLIC ACID 5 MG/ML VIAL ONE (18:20)
[2024-03-23] MEDS ORDERED: TRAMADOL HCL 50 MG TAB ONE (18:56)
[2024-03-23] MEDS ORDERED: CEFTRIAXONE 1000 MG/VIAL ONE (19:04)
--- NOTE | 2024-03-23 19:52 | P.HP ---
Certification for Inpatient Patient admitted to: Inpatient With expected LOS: >2 Midnights Practitioner: I am a practitioner with admitting privileges, knowledge of patient current condition, hospital course, and medical plan of care. Services: Services provided to patient in accordance with Admission requirements found in Title 42 Section 412.3 of the Code of Federal Regulations Patient History Date of Service: 03/23/24 Reason for admission: Slurring speech History of Present Illness: 73 yrs old Female with past medical history of CAD, status post stents, CVA, chronic UTI, diabetes, hypertension, hyperlipidemia, history of squamous cell carcinoma presents to ER with complaints of Slurred Speech. She also complains of weakness of the entire body. Patient is a poor historian hence most of the history is obtained from the chart review and also talking to family members at the bedside. She started having some slurring of speech and aphasic and facial droop associated with generalized weakness. Has been going on since . It has been progressively getting worse and was brought to ER She was assessed in the ER and is admitted for further management of possible stroke Allergies clopidogrel [From Plavix] Allergy (Verified 03/20/19 15:24) Rash iodine Allergy (Verified 03/20/19 15:24) Rash Home medications list reviewed: Yes Home Medications: Irbesartan [Avapro] 300 mg PO DAILY 03/21/19 Atorvastatin Calcium [Lipitor] 80 mg PO BEDTIME 01/12/21 Docusate [Colace Cap*] 100 mg PO PRN PRN 02/24/21 Polyethylene Glycol 3350 [Miralax] 17 gm PO PRN PRN 02/24/21 Dipyridamole/Aspirin [Aggrenox 25 mg-200 mg Cap*] 1 cap PO BID #60 cap 02/25/21 Pantoprazole [Protonix Tab*] 40 mg PO DAILYAC #30 tab 02/26/21 Bran/Gum/Fib/Caitlin/Psyl/Kelp/Pec [Fiber 6 Tablet] 1 tab PO DAILY 03/08/24 Calcium Carbonate 500 mg PO DAILY 03/08/24 Duloxetine [Cymbalta *] 40 mg PO DAILY 03/08/24 Ergocalciferol (Vitamin D2) [Vitamin D2] 1,250 mcg PO SEECOM 03/08/24 Fenofibrate,Micronized [Fenofibrate] 1 cap PO DAILY 03/08/24 Ferrous Sulfate [Ferrous Sulfate*] 325 mg PO BID 03/08/24 Gabapentin 100 mg PO BEDTIME PRN 03/08/24 Insulin Degludec [Tresiba Flextouch U-100] 60 units SQ BID 03/08/24 L.acidoph,Paracasei, B.lactis [Probiotic] 1 cap PO DAILY 03/08/24 Metformin ER [Glucophage ER*] 2 tab PO BID 03/08/24 Metoprolol Succinate [Toprol Xl*] 100 mg PO BID 03/08/24 Sennosides 1 tab PO DAILY 03/08/24 Tirzepatide [Mounjaro] 2.5 units SQ SEECOM 03/08/24 Tramadol HCl/Acetaminophen [Tramadol-Acetaminophn 37.5-325] 1 tab PO Q6H PRN 03/08/24 estradioL [Estradiol] 0.5 g VG BEDTIME 03/08/24 icosapent ethyL [Icosapent Ethyl] 2 cap PO BID 03/08/24 Ciprofloxacin HCl [Cipro] 500 mg PO BID #10 tab 03/13/24 Valsartan [Diovan*] 160 mg PO DAILY 30 Days #30 tab 03/13/24 - Past Medical/Surgical History Diabetic: Yes Past Medical History: Reviewed- Non-Contributory -: hypertension -: skin cancer -: diabetesinsulin-dependent -: dyslipidemia -: CAD -: chronic UTIs -: [place] Past Surgical History: Reviewed- Non-Contributory -: 2 heart stents 2000, 2001 -: total hysterectomy -: hemorrhoidectomy -: right breast tumor removal -: -: elo -: CABG Psychosocial/ Personal History: Lives at home with her - Social History Smoking Status: Never smoker Alcohol use: No CD- Drugs: No Caffeine use: No Review of Systems 10-point ROS is otherwise unremarkable Physical Examination - Vital Signs Temperature: 97.7 F Blood Pressure: 102/52 Pulse: 59 Respirations: 18 Pulse Ox (%): 94 - Physical Exam General: Alert, In no apparent distress, Obese HEENT: Atraumatic, Normocephalic Neck: Supple Respiratory: Clear to auscultation bilaterally, Normal air movement Cardiovascular: No edema, Regular rate/rhythm, Normal S1 S2 Capillary refill: <2 Seconds Gastrointestinal: Soft and benign, W/out hepatosplenomegaly Musculoskeletal: No clubbing, No swelling Integumentary: No rashes Neurological: Other (Alert, Awake, non focal ) Lymphatics: No axilla or inguinal lymphadenopathy - Studies Laboratory Data (last 24 hrs) 03/23/24 03/23/24 03/23/24 16:58 16:58 16:58 WBC 9.80 Hgb 11.9 L Hct 35.3 L Plt Count 444 H PT 11.6 INR 1.11 APTT 27.1 Sodium 132 L Potassium 4.3 BUN 30 H Creatinine 0.99 Glucose 92 Magnesium 1.6 Total Bilirubin 0.4 AST 19 ALT 24 Alkaline Phosphatase 38 L Assessment and Plan - Plan Hyponatremia Electrolytes monitor and replace accordingly UTI Started on IV antibiotic Monitor cultures Change antibiotic as per sensitivity Acute encephalopathy possibly due to UTI Monitor neuro vital signs To rule out CVA/TIA No focal weakness Started on aspirin and statin CT findings noted MRI brain ordered Monitor neuro vital signs Monitor under telemetry Hypertension Antihypertensives titrated Continue home medications and titrate as needed Hyperlipidemia Continue statin CKD stage II Monitor renal parameters Electrolytes monitor and replace accordingly Diabetes Insulin sliding scale Accu-Chek before every meal and at bedtime GI/DVT prophylaxis Advanced directive full code Discharge Plan: Home Plan to discharge in: 48 Hours - Advance Directives Does patient have a Living Will: No Does patient have a Durable POA for Healthcare: No - Code Status/Comfort Care Code Status: Full Code Time Spent Managing Pts Care (In Minutes): 49
[2024-03-23 22:35] VITALS: BMI 34.0
[2024-03-23] MEDS ORDERED: GLUCAGON 1 MG/VIAL IM PRN (23:21)
[2024-03-23] MEDS ORDERED: D10W 125 ML IV PRN (23:21)
[2024-03-23] MEDS: NA CHLORIDE 0.9% 1,000 ML IV SCH (23:47)
[2024-03-24] MEDS: LORazepam 2 MG/ML VIAL IV ONE (03:31)
[2024-03-24 04:58] LABS: Absolute Basophils 0.1 K/uL (0-0.5); Absolute Eosinophils 0.1 K/uL (0-0.5); Absolute Lymphocytes (CBC) 2.5 K/uL (0.7-4.9); Absolute Monocytes 0.6 K/uL (0.1-1.3); Absolute Neutrophil 3.9 K/uL (1.8-8.0); Basophils % 1.1 % (0-1.3); Eosinophils % 1.8 % (0-4.4); Hematocrit 33.5 % (36.0-45.0); Hemoglobin 11.5 g/dL (12.0-15.0); Lymphocytes % 34.8 % (15.3-44.8); MCH 27.7 pg (27.0-35.0); MCHC 34.4 g/dL (32.0-36.0); MCV 80.5 fL (80-100); MPV 7.7 fL (7.6-11.3); Monocytes % 8.5 % (3.3-12.3); Neutrophils % 53.8 % (41.7-73.7); Nucleated Red Blood Cells % 0.3 % (0-0); Platelets 334 thou/uL (152-406); RBC Red Blood Cell Count 4.16 M/uL (3.86-4.86)
[2024-03-24 05:07] LABS: Albumin 2.5 g/dL (3.4-5.0); Albumin/Globulin Ratio 0.7 (1.1-1.8); Anion Gap 10.9 mEq/L (5.0-15.0); Bilirubin Total 0.2 mg/dL (0.2-1.0); Globulin 3.5 g/dL (2.3-3.5); Potassium 3.9 mEq/L (3.5-5.1)
[2024-03-24] MEDS: CEFTRIAXONE 1,000 MG in NA CHLORIDE 0.9% 50 ML IVPB SCH (08:49)
[2024-03-24] MEDS: ENOXAPARIN 40 MG/0.4 ML SQ SCH (08:50)
[2024-03-24] MEDS: INSULIN REGULAR (HUMAN) 100 UNIT/ML SQ SCH (10:07)
--- NOTE | 2024-03-24 16:46 | P.PN ---
Subjective Date of Service: 03/24/24 Chief Complaint: Slurring speech Pt unknown to me, appears very confused, agitated, requesting her Review of Systems 10-point ROS is otherwise unremarkable General: As per HPI Eyes: Unremarkable ENT: Unremarkable Respiratory: Unremarkable Cardiovascular: Unremarkable Gastrointestinal: Unremarkable Genitourinary: Unremarkable Musculoskeletal: Unremarkable Integumentary: Unremarkable Neurological: Incoordination, Confusion, As per HPI Lymphatics: Unremarkable Physical Examination - Vital Signs Temperature: 97.8 F Blood Pressure: 106/56 Pulse: 70 Respirations: 20 Pulse Ox (%): 98 - Physical Exam General: Alert, Disheveled, Confused HEENT: Atraumatic, Normocephalic Neck: Supple Respiratory: Clear to auscultation bilaterally, Normal air movement Cardiovascular: No edema, Normal pulses Capillary refill: <2 Seconds Gastrointestinal: Other (BM while I was in room, she was on potty chair and continued to try to stand and put clothes on but had not completed BM) Musculoskeletal: No clubbing, No swelling Integumentary: No rashes Neurological: Normal speech, Abnormal gait, Abnormal sensation, Abnormal affect Lymphatics: No axilla or inguinal lymphadenopathy External genitalia: Deferred Rectal: Deferred - Studies Laboratory Data (last 24 hrs) 03/23/24 03/23/24 03/23/24 16:58 16:58 16:58 WBC 9.80 Hgb 11.9 L Hct 35.3 L Plt Count 444 H PT 11.6 INR 1.11 APTT 27.1 Sodium 132 L Potassium 4.3 BUN 30 H Creatinine 0.99 Glucose 92 Magnesium 1.6 Total Bilirubin 0.4 AST 19 ALT 24 Alkaline Phosphatase 38 L Assessment And Plan - Plan 73 yrs old Female with past medical history of CAD, status post stents, CVA, chronic UTI, diabetes, hypertension, hyperlipidemia, history of squamous cell carcinoma presents to ER with complaints of Slurred Speech. She also complains of weakness of the entire body. Patient is a poor historian hence most of the history is obtained from the chart review and also talking to family members at the bedside. She started having some slurring of speech and aphasic and facial droop associated with generalized weakness. Has been going on since [place]. It has been progressively getting worse and was brought to ER She was assessed in the ER and is admitted for further management of possible stroke Assessment and Plan Hyponatremia 137 Electrolytes monitor and replace accordingly UTI Started on IV antibiotic (prelim culture shows 4+ gm neg rods) Monitor cultures Change antibiotic as per sensitivity Acute encephalopathy possibly due to UTI Monitor neuro vital signs To rule out CVA/TIA No focal weakness Started on aspirin and statin CT findings noted MRI brain ordered Monitor neuro vital signs Monitor under telemetry Hypertension Antihypertensives titrated Continue home medications and titrate as needed Hyperlipidemia Continue statin CKD stage II Monitor renal parameters Electrolytes monitor and replace accordingly Diabetes Insulin sliding scale Accu-Chek before every meal and at bedtime GI/DVT prophylaxis Advanced directive full code Discharge Plan: Home Plan to discharge in: 48 Hours - Advance Directives Does patient have a Living Will: No Does patient have a Durable POA for Healthcare: No - Code Status/Comfort Care Code Status: Full Code Plan to discharge in: Greater than 2 days - Code Status/Comfort Care Code Status Assessed: Yes (Full)
[2024-03-24] MEDS: ACETAMINOPHEN 325 MG TABLET PO PRN (17:13)
[2024-03-25] MEDS: Meropenem 1,000 MG in NA CHLORIDE 0.9% 100 ML IV SCH (07:56)
[2024-03-25] MEDS ORDERED: POLYETHYL GLY 3350 17 GM/DOSE PO PRN (09:01)
[2024-03-25] MEDS: DIPYRIDAMOLE/ASPIRIN CAP ER PO SCH (09:52)
--- NOTE | 2024-03-25 17:20 | RAD REPORT ---
EXAMINATION: MRI BRAIN WITHOUT CONTRAST CLINICAL INDICATION: Female, 73 years old. CVA TECHNIQUE: Multiplanar multisequence MR images of the brain were obtained without intravenous contras t. Unless otherwise specified, incidental findings do not require dedicated imaging follow-up. [id number]. COMPARISON: 02/24/2021, CT head 03/23/2024 FINDINGS: INTRACRANIAL: No acute infarct identified. No significant mass effect or midline shift.No hydrocepha margo. Moderate chronic small vessel ischemic changes.Age advanced cerebral atrophy. Remote left cabrales radiata/basal ganglia infarct. VASCULATURE: Normal signal voids in the larger intracranial arteries and dural venous sinuses. SINUSES: The paranasal sinuses are clear.No mastoid effusions. BONE: The marrow signal pattern is within normal limits. IMPRESSION: No acute intracranial abnormality. Specifically, no evidence of acute infarct.
[2024-03-25] MEDS: ATORVASTATIN 80 MG TAB PO SCH (20:18)
[2024-03-25] MEDS: MELATONIN 3 MG TABLET PO ONE (20:25)
[2024-03-25] MEDS ORDERED: METOPROLOL XL 100 MG TAB PO SCH (21:00)
[2024-03-25] MEDS: DOCUSATE NA 100 MG CAP PO PRN (23:14)
[2024-03-26 05:29] LABS: Absolute Basophils 0.1 K/uL (0-0.5); Absolute Eosinophils 0.1 K/uL (0-0.5); Absolute Lymphocytes (CBC) 1.9 K/uL (0.7-4.9); Absolute Monocytes 0.4 K/uL (0.1-1.3); Absolute Neutrophil 2.2 K/uL (1.8-8.0); Basophils % 1.3 % (0-1.3); Hematocrit 32.4 % (36.0-45.0); Hemoglobin 11.2 g/dL (12.0-15.0); Lymphocytes % 40.6 % (15.3-44.8); MCH 27.6 pg (27.0-35.0); MCHC 34.5 g/dL (32.0-36.0); MPV 7.6 fL (7.6-11.3); Monocytes % 9.1 % (3.3-12.3); Nucleated Red Blood Cells % 0.1 % (0-0); Platelets 277 thou/uL (152-406); RBC Red Blood Cell Count 4.05 M/uL (3.86-4.86); Red Cell Distribution Width 17.1 % (12.1-15.2)
[2024-03-26 05:43] LABS: Anion Gap 7.9 mEq/L (5.0-15.0); Magnesium 1.5 mg/dL (1.6-2.4); Potassium 3.9 mEq/L (3.5-5.1)
[2024-03-26] MEDS: Magnesium Sulfate 2gm IVPB 2 G/50 ML BAG IV ONE (07:29)
--- NOTE | 2024-03-26 08:48 | P.PN ---
Date of Service: 03/25/24 Subjective confused, follows commands Review of Systems 10-point ROS is otherwise unremarkable Physical Examination - Vital Signs Reviewed - Physical Exam General: Alert, Disheveled, Confused HEENT: Atraumatic, Normocephalic Neck: Supple Respiratory: Clear to auscultation bilaterally, Normal air movement Cardiovascular: No edema, Normal pulses Capillary refill: <2 Seconds Gastrointestinal: Positive bowel sounds, soft nontender Musculoskeletal: No clubbing, No swelling Integumentary: No rashes Neurological: Normal speech, Abnormal gait, Abnormal sensation, Abnormal affect Assessment and Plan Metabolic encephalopathy likely secondary to acute cystitis Acute cystitis with hematuria ESBL of the urine Started on IV antibiotic (prelim culture shows 4+ gm neg rods) started on meropenem Monitor cultures Change antibiotic as per sensitivity No focal weakness Started on aspirin and statin CT findings noted MRI brain No acute intracranial abnormality. Specifically, no evidence of acute infarct. Monitor neuro vital signs Monitor under telemetry Hypertension Antihypertensives titrated Continue home medications and titrate as needed Hyperlipidemia Continue statin CKD stage II Monitor renal parameters Electrolytes monitor and replace accordingly Diabetes Insulin sliding scale Accu-Chek before every meal and at bedtime GI/DVT prophylaxis Advanced directive full code Discharge Plan: Home Plan to discharge in: 48 Hours - Advance Directives Does patient have a Living Will: No Does patient have a Durable POA for Healthcare: No - Code Status/Comfort Care Code Status: Full Code Plan to discharge in: Greater than 2 days - Code Status/Comfort Care Code Status Assessed: Yes (Full) Time with patient 30-minute
[2024-03-26] MEDS ORDERED: HOME MED 1 EA UNK (Irbesartan [Avapro] 300 MG Tablet) PO SCH (09:00)
[2024-03-26] MEDS: DULOXETINE 20 MG CAP PO SCH (09:02)
[2024-03-26] MEDS: VALSARTAN 160 MG TAB PO SCH (09:02)
[2024-03-26] MEDS: POTASSIUM CL SA 10 MEQ TAB PO ONE (09:03)
[2024-03-26] MEDS: MINERAL OIL 30 ML UCUP PO ONE (09:41)
[2024-03-26] MEDS: HYDRALAZINE HCL 20 MG/ML VIAL IV PRN (13:34)
--- NOTE | 2024-03-26 15:51 | P.PN ---
Date of Service: 03/26/24 Subjective confused, follows commands, Pending SNF, will need IV antibiotics, for ESBL of the urine Review of Systems 10-point ROS is otherwise unremarkable Physical Examination - Vital Signs Reviewed - Physical Exam General: Alert, oriented x 2, follows commands, afebrile HEENT: Atraumatic, Normocephalic Neck: Supple Respiratory: Clear to auscultation bilaterally, equal, unlabored Cardiovascular: No edema, Normal pulses Capillary refill: <2 Seconds Gastrointestinal: Positive bowel sounds, soft nontender Musculoskeletal: No clubbing, No swelling, generalized weakness Integumentary: No rashes Neurological: Normal speech, Assessment and Plan Metabolic encephalopathy likely secondary to acute cystitis Acute cystitis with hematuria ESBL of the urine Started on IV antibiotic (prelim culture shows 4+ gm neg rods) started on meropenem Monitor cultures Change antibiotic as per sensitivity No focal weakness Started on aspirin and statin CT findings noted MRI brain No acute intracranial abnormality. Specifically, no evidence of acute infarct. Monitor neuro vital signs Monitor under telemetry Hypertension Antihypertensives titrated Continue home medications and titrate as needed Hypertensive urgency Hyperlipidemia Continue statin As needed antihypertensives added CKD stage II Monitor renal parameters Electrolytes monitor and replace accordingly Diabetes Insulin sliding scale Accu-Chek before every meal and at bedtime GI/DVT prophylaxis Advanced directive full code Discharge Plan: Home Plan to discharge in: 48 Hours - Advance Directives Does patient have a Living Will: No Does patient have a Durable POA for Healthcare: No - Code Status/Comfort Care Code Status: Full Code Plan to discharge in: Greater than 2 days Disposition pending SNF - Code Status/Comfort Care Code Status Assessed: Yes (Full) Time with patient 30-minute
[2024-03-27] MEDS: ONDANSETRON 4 MG/2 ML VIAL IV PRN (00:24)
--- NOTE | 2024-03-27 01:12 | RAD REPORT ---
Clinical Indication: ; AMS Comparison: March 23, 2024 TECHNIQUE: CT images were obtained from the foramen magnum to the vertex without the use of intraveno us contrast on a multidetector CT. Coronal and sagittal reformats were performed and provided as separate series. All CT scans at this location are performed using dose optimization techniques as appropriate to perf orm the study. Radiation dose reduction technique was utilized including one or more of the following: Automated exp osure control, adjustment of the mA and/or kV according to patient size and use of iterative reconstruction technique. CT Radiation Dose DLP 865.5 mGy-cm FINDINGS: BRAIN PARENCHYMA: There is generalized brain parenchymal atrophy related to the patient's age. Modera te nonspecific periventricular white matter disease changes are noted. There are no focal mass lesions on this noncontrast head CT. There is no mass effect, midline shift or edema. There are no in tra-axial or extra-axial fluid collections, intraventricular or intraparenchymal hemorrhage. There is no noncontrast CT evidence of a subacute stroke. The pineal, sellar, brainstem, cerebellum and sku ll base regions appear unremarkable. VENTRICLES: The lateral ventricles, third and fourth ventricles appear unremarkable. The basilar cist erns are normal. ORBITS, MASTOIDS AND PARANASAL SINUSES: The visualized orbits and paranasal sinuses are unremarkable. The mastoid air cells are clear. SKULL: There are no calvarial abnormalities seen. If there is further concern for intracranial pathology or acute stroke, MRI of the brain may be perfo rmed for complete assessment. IMPRESSION: 1. No acute intracranial abnormality. 2. Chronic small vessel ischemic changes in the periventricular white matter. Electronically signed by: Linwood Currie MD 03/27/2024 01:05 AM [facility] Due to temporary technical issues with the [employer]ACS/[employer] reporting system, reports are being renee d by the in-house radiologist without review as a courtesy to ensure prompt reporting the interpreting radiologist is fully responsible for the content of the report. Transcribed Date/Time: 03/27/2024 1:12 AM
[2024-03-27 05:24] LABS: Absolute Basophils 0.1 K/uL (0-0.5); Absolute Lymphocytes (CBC) 1.8 K/uL (0.7-4.9); Absolute Monocytes 0.6 K/uL (0.1-1.3); Absolute Neutrophil 7.3 K/uL (1.8-8.0); Basophils % 0.8 % (0-1.3); Eosinophils % 0.3 % (0-4.4); Hematocrit 34.7 % (36.0-45.0); Hemoglobin 12.1 g/dL (12.0-15.0); Lymphocytes % 18.2 % (15.3-44.8); MCH 27.8 pg (27.0-35.0); MCHC 34.9 g/dL (32.0-36.0); MCV 79.8 fL (80-100); MPV 7.9 fL (7.6-11.3); Monocytes % 5.8 % (3.3-12.3); Neutrophils % 74.9 % (41.7-73.7); Platelets 350 thou/uL (152-406); RBC Red Blood Cell Count 4.35 M/uL (3.86-4.86); Red Cell Distribution Width 17.1 % (12.1-15.2)
[2024-03-27 05:40] LABS: Anion Gap 12.7 mEq/L (5.0-15.0); Magnesium 1.5 mg/dL (1.6-2.4); Potassium 3.7 mEq/L (3.5-5.1)
[2024-03-27] MEDS: Magnesium Sulfate 2gm IVPB 2 G/50 ML BAG IV ONE (08:00)
[2024-03-27] MEDS: POTASSIUM CL SA 10 MEQ TAB PO ONE (08:35)
[2024-03-27] MEDS: Mupirocin NASAL 2 APPL/1 GM TUBE NAS SCH (20:44)
[2024-03-28 06:18] LABS: Absolute Basophils 0.1 K/uL (0-0.5); Absolute Eosinophils 0.1 K/uL (0-0.5); Absolute Monocytes 0.5 K/uL (0.1-1.3); Absolute Neutrophil 3.8 K/uL (1.8-8.0); Basophils % 1.2 % (0-1.3); Eosinophils % 1.5 % (0-4.4); Hematocrit 29.6 % (36.0-45.0); Hemoglobin 10.2 g/dL (12.0-15.0); Lymphocytes % 31.5 % (15.3-44.8); MCH 27.6 pg (27.0-35.0); MCHC 34.5 g/dL (32.0-36.0); MPV 7.8 fL (7.6-11.3); Monocytes % 7.9 % (3.3-12.3); Neutrophils % 57.9 % (41.7-73.7); Platelets 288 thou/uL (152-406); Red Cell Distribution Width 17.7 % (12.1-15.2)
[2024-03-28 06:25] LABS: Anion Gap 11.6 mEq/L (5.0-15.0); Magnesium 1.6 mg/dL (1.6-2.4); Potassium 3.6 mEq/L (3.5-5.1)
--- NOTE | 2024-03-28 07:47 | P.PN ---
Date of Service: 03/27/24 Subjective confused, follows commands, Improving, plan to discharge home with home health with IV antibiotic Review of Systems 10-point ROS is otherwise unremarkable Physical Examination - Vital Signs Reviewed - Physical Exam General: Alert, oriented x 3, forgetful HEENT: Atraumatic, Normocephalic Neck: Supple Respiratory: Clear to auscultation bilaterally, equal, unlabored Cardiovascular: No edema, Normal pulses Capillary refill: <2 Seconds Gastrointestinal: Positive bowel sounds, soft nontender Musculoskeletal: No clubbing, No swelling, generalized weakness Integumentary: No rashes Neurological: Normal speech, Assessment and Plan Metabolic encephalopathy likely secondary to acute cystitis improving Acute cystitis with hematuria improving improving ESBL of the urine Started on IV antibiotic (prelim culture shows 4+ gm neg rods) started on meropenem Monitor cultures Change antibiotic as per sensitivity No focal weakness Started on aspirin and statin CT findings noted MRI brain No acute intracranial abnormality. Specifically, no evidence of acute infarct. Monitor neuro vital signs Monitor under telemetry Hypertension Antihypertensives titrated Continue home medications and titrate as needed Hypertensive urgency improving Hyperlipidemia Continue statin As needed antihypertensives added CKD stage II Monitor renal parameters Electrolytes monitor and replace accordingly Diabetes Insulin sliding scale Accu-Chek before every meal and at bedtime GI/DVT prophylaxis Advanced directive full code Discharge Plan: Home Plan to discharge in: 48 Hours - Advance Directives Does patient have a Living Will: No Does patient have a Durable POA for Healthcare: No - Code Status/Comfort Care Code Status: Full Code Plan to discharge in: Greater than 2 days Disposition pending SNF - Code Status/Comfort Care Code Status Assessed: Yes (Full) Time with patient 25-minute
--- NOTE | 2024-03-28 07:52 | P.DS ---
Admission Date: 03/23/24 Discharge Date: 03/28/24 Disposition: DC HOME/HOME HEALTH CARE Discharge Condition: GOOD Reason for Admission: Slurring speech Brief History of Present Illness: 73 yrs old Female with past medical history of CAD, status post stents, CVA, chronic UTI, diabetes, hypertension, hyperlipidemia, history of squamous cell carcinoma presents to ER with complaints of Slurred Speech. She also complains of weakness of the entire body. Patient is a poor historian hence most of the history is obtained from the chart review and also talking to family members at the bedside. She started having some slurring of speech and aphasic and facial droop associated with generalized weakness. Has been going on since . It has been progressively getting worse and was brought to ER she was admitted for UTI, metabolic encephalopathy, hyponatremia. Tolerating diet, stable to discharge home with home health with IV antibiotics for ESBL of the urine - Physical Exam General: Alert, oriented x 2, follows commands, afebrile HEENT: Atraumatic, Normocephalic Neck: Supple Respiratory: Clear to auscultation bilaterally, equal, unlabored Cardiovascular: No edema, Normal pulses Capillary refill: <2 Seconds Gastrointestinal: Positive bowel sounds, soft nontender Musculoskeletal: No clubbing, No swelling, generalized weakness Integumentary: No rashes Neurological: Normal speech, Hospital Course: 73 yrs old Female with past medical history of CAD, status post stents, CVA, chronic UTI, diabetes, hypertension, hyperlipidemia, history of squamous cell carcinoma presents to ER with complaints of Slurred Speech. She also complains of weakness of the entire body. Patient is a poor historian hence most of the history is obtained from the chart review and also talking to family members at the bedside. She started having some slurring of speech and aphasic and facial droop associated with generalized weakness. Has been going on since . It has been progressively getting worse and was brought to ER she was admitted for cmplicated UTI (ESBL Urine) metabolic encephalopathy, hyponatremia. Symptoms improved with IV ABX, Tolerating diet, stable to discharge home with home health with IV antibiotics for ESBL of the urine Discharged home on Invanz 1 g daily for 5 days Discharge home with HHC, PT, SN IV ABX Assessment Metabolic encephalopathy likely secondary to acute cystitis improving-discharged home on Invanz daily for 5 days Acute cystitis with hematuria improving improving ESBL of the urine CT findings noted no acute findings MRI brain No acute intracranial abnormality. Specifically, no evidence of acute infarct. Hypertensive urgency improving discharged home on p.o. antihypertensive Hyperlipidemia resume home meds CKD stage II stable Diabetes resume home meds after discharge GOAL: Clear understanding of disease process INSTRUCTIONS: Physician Discharge Instructions: -Follow-up with PCP in 1 to 2 weeks -Please call Dr. Best at [phone] if any questions regarding hospital stay -Please call nursing station at [phone] if any nursing or medication questions -Return to the emergency room if symptoms worsen Diet: ADA, low sodium Activity: Fall precautions Vital Signs/Physical Exam: Temp Pulse Resp BP Pulse Ox 98.4 F 96 H 18 159/65 H 96 03/28/24 05:08 03/28/24 05:08 03/28/24 05:08 03/28/24 05:08 03/28/24 05:08 Laboratory Data at Discharge: WBC 6.50 thou/uL (4.3-10.9) 03/28/24 05:42 Hgb 10.2 g/dL (12.0-15.0) L D 03/28/24 05:42 Hct 29.6 % (36.0-45.0) L 03/28/24 05:42 Plt Count 288 thou/uL (152-406) 03/28/24 05:42 PT 11.6 SECONDS (9.4-12.5) 03/23/24 16:58 INR 1.11 03/23/24 16:58 APTT 27.1 SECONDS (24.3-36.9) 03/23/24 16:58 Sodium 137 mEq/L (136-145) D 03/28/24 05:42 Potassium 3.6 mEq/L (3.5-5.1) 03/28/24 05:42 BUN 11 mg/dL (7-18) 03/28/24 05:42 Creatinine 0.49 mg/dL (0.55-1.02) L 03/28/24 05:42 Glucose 188 mg/dL (74-106) H 03/28/24 05:42 Magnesium 1.6 mg/dL (1.6-2.4) 03/28/24 05:42 Total Bilirubin 0.2 mg/dL (0.2-1.0) 03/24/24 04:30 AST 15 U/L (15-37) 03/24/24 04:30 ALT 22 U/L (13-56) 03/24/24 04:30 Alkaline Phosphatase 42 U/L (45-117) L 03/24/24 04:30 LDL Cholesterol Direct 43 mg/dL (100-129) L 03/25/24 09:30 Home Medications: Irbesartan [Avapro] 300 mg PO DAILY 03/21/19 Atorvastatin Calcium [Lipitor] 80 mg PO BEDTIME 01/12/21 Docusate [Colace Cap*] 100 mg PO PRN PRN 02/24/21 Polyethylene Glycol 3350 [Miralax] 17 gm PO PRN PRN 02/24/21 Dipyridamole/Aspirin [Aggrenox 25 mg-200 mg Cap*] 1 cap PO BID #60 cap 02/25/21 Duloxetine [Cymbalta *] 40 mg PO DAILY 03/08/24 Ergocalciferol (Vitamin D2) [Vitamin D2] 1,250 mcg PO SEECOM 03/08/24 Insulin Degludec [Tresiba Flextouch U-100] 60 units SQ BID 03/08/24 L.acidoph,Paracasei, B.lactis [Probiotic] 1 cap PO DAILY 03/08/24 Metformin ER [Glucophage ER*] 2 tab PO BID 03/08/24 Metoprolol Succinate [Toprol Xl*] 100 mg PO BID 03/08/24 Tirzepatide [Mounjaro] 2.5 units SQ SEECOM 03/08/24 Physician Discharge Instructions: Home Health referral sent to: [facility] P:[phone] IV antibiotic order sent to: [facility] [id number], [place] [address] P: [phone] Allie: [phone] 73 yrs old Female with past medical history of CAD, status post stents, CVA, chronic UTI, diabetes, hypertension, hyperlipidemia, history of squamous cell ca rcinoma presents to ER with complaints of Slurred Speech. She also complains of weakness of the entire body. Patient is a poor historian hence most of the history is obtained from the chart review and also talking to family members at the bedside. She started having some slurring of speech and aphasic and facial droop associated with generalized weakness. Has been going on since [place]. It has been progressively getting worse and was brought to ER she was admitted for UTI, metabolic encephalopathy, hyponatremia. Tolerating diet, stable to discharge home with home health with IV antibiotics for ESBL of the urine Discharged home on Invanz 1 g daily for 5 days Home [facility] IV ABX, PT, SN Assessment Metabolic encephalopathy likely secondary to acute cystitis improving-discharged home on Invanz daily for 5 days Acute cystitis with hematuria improving improving ESBL of the urine CT findings noted MRI brain No acute intracranial abnormality. Specifically, no evidence of acute infarct. Hypertensive urgency improving discharged home on p.o. antihypertensive Hyperlipidemia resume home meds CKD stage II stable Diabetes resume home meds after discharge GOAL: Clear understanding of disease process INSTRUCTIONS: Physician Discharge Instructions: -Follow-up with PCP in 1 to 2 weeks -Please call Dr. Best at [phone] if any questions regarding hospital stay -Please call nursing station at [phone] if any nursing or medication questions -Return to the emergency room if symptoms worsen Diet: ADA, low sodium Activity: Fall precautions Followup: NONE,NONE [Primary Care Provider] - Time spent managing pt's care (in minutes): 45
[2024-03-28 11:57] VITALS: O2SAT 98
--- NOTE | 2024-03-28 13:09 | EKG ---
Test Date: 2024-03-23 Test Time: 16:48:25 Senior Radiation Therapist: ESTRELLITA MEASUREMENT RESULTS: Intervals: Rate: 57 IA: 240 QRSD: 100 QT: 428 QTc: 416 [place]: P: 64 IA: 240 QRS: -8 T: 32 INTERPRETIVE STATEMENTS: Sinus bradycardia with 1st degree AV block Otherwise normal ECG Compared to ECG 03/08/2024 09:45:54 First degree AV block now present Sinus rhythm no longer present ST (T wave) deviation no longer present Electronically Signed On 03-28-24 13:02:10 CARPET INSPECTOR FINISHED by Marcellus Ruby
[2024-03-28] MEDS ORDERED: ERTAPENEM SODIUM 1 GM VIAL IM SCH (14:48)
[2024-03-28] MEDS: ERTAPENEM NA 1 GM in NA CHLORIDE 0.9% 100 ML IVPB ONE (16:25)
[2024-03-28 16:41] VITALS: BP 159/69; TEMP 97.6
== END 2024-03-28 18:00 | disposition home health service (06) | DRG 689 ==
LOC: ER 14:18 → ERHOLD 19:52 → 2ND 20:26
PROVIDERS: ADMIT Family Medicine; ATTEND Hospitalist
DX: N30.01 Acute cystitis with hematuria (principal); G93.41 Metabolic encephalopathy; E87.1 Hypo-osmolality and hyponatremia; R47.01 Aphasia; Z16.12 Extended spectrum beta lactamase (ESBL) resistance; I16.0 Hypertensive urgency; I12.9 Hypertensive chronic kidney disease with stage 1 through stage 4 chronic kidney disease, or unspecified chronic kidney disease; N18.2 Chronic kidney disease, stage 2 (mild); E11.22 Type 2 diabetes mellitus with diabetic chronic kidney disease; E78.00 Pure hypercholesterolemia, unspecified; I25.10 Atherosclerotic heart disease of native coronary artery without angina pectoris; I25.2 Old myocardial infarction; Z86.73 Personal history of transient ischemic attack (TIA), and cerebral infarction without residual deficits; Z88.5 Allergy status to narcotic agent; Z88.8 Allergy status to other drugs, medicaments and biological substances; Z95.5 Presence of coronary angioplasty implant and graft; Z90.49 Acquired absence of other specified parts of digestive tract; Z95.1 Presence of aortocoronary bypass graft; Z90.710 Acquired absence of both cervix and uterus; Z79.4 Long term (current) use of insulin; Z79.84 Long term (current) use of oral hypoglycemic drugs; Z79.899 Other long term (current) drug therapy; Z85.828 Personal history of other malignant neoplasm of skin
CPT/HCPCS: 36415; 70450; 70551; 71045; 80048; 80053; 80076; 81001; 82947; 83735; 84484; 85025; 85610; 85730; 87077; 87086; 87088; 87186; 92523; 92610; 93005; 94760; 96365; 96367; 96375; 97116; 97161; 99285; J0360; J0696; J1335; J1650; J2185; J2405; J3475; J7030

== ENCOUNTER 2024-05-21 09:09 | Emergency (ER) | payer OTHER ==
[2024-05-21] MEDS ORDERED: ONDANSETRON 4 MG (ODT) TAB ONE (09:59)
--- NOTE | 2024-05-21 10:03 | RAD REPORT ---
EXAM: CT brain without contrast HISTORY: Headache COMPARISON: March 2024 TECHNIQUE: Multiple contiguous axial images were obtained and a CT of the brain without contrast.. Sagittal and coronal reconstruction performed. Automated exposure control, adjustment of the mA and/or kV according to patient size, and/or iterative reconstruction. Unless otherwise specified, incidental f indings do not require dedicated imaging follow-up FINDINGS: An intracranial bleed is not seen Ventricles are normal caliber No extra-axial fluid collection noted Mild to moderate low-density paraventricular, deep and subcortical white matter likely ischemic gutierrez es secondary to small vessel disease. Old lacunar infarct left basal ganglia. No fluid within the visualized sinuses or mastoids noted. IMPRESSION: No acute intracranial abnormality noted. If the patient continues to have symptoms to suggest an acute intracranial abnormality then MRI of th e brain would be recommended.
--- NOTE | 2024-05-21 10:06 | RAD REPORT ---
EXAMINATION: CT MAXILLOFACIAL WITHOUT CONTRAST CLINICAL INDICATION: Facial pain status post fall TECHNIQUE: Axial images were obtained through the facial bones and orbits without intravenous contras t. Sagittal and coronal reconstructions were created from the data. One or more of the following dose reduction techniques were used: Automated exposure control, adjustment of the mA and/or kV accor ding to patient size, and/or iterative reconstruction. Unless otherwise specified, incidental findings do not require dedicated imaging follow-up. COMPARISON: 2023 FINDINGS: Nasal bone chip fracture. No TMJ dislocation. The globes are intact. No fluid within the sinuses. IMPRESSION: Chip fracture nasal bone.
--- NOTE | 2024-05-21 10:35 | RAD REPORT ---
EXAM:Thorax Wo Con CLINICAL INDICATION: Chest pain TECHNIQUE: CT chest performed.. Axial, sagittal and coronal reconstructions were obtained. One or mor e of the following dose reduction techniques were used: Automated exposure control, adjustment of the mA and/or kV according to the patient size, and/or iterative reconstruction. Unless otherwise specified, incidental findings do not require dedicated imaging follow-up. [id number]. COMPARISON: None FINDINGS: No pulmonary contusion. 7 mm ground glass opacity right lower lobe No mediastinal hematoma. No pleural effusion. No pericardial effusion Aberrant right subclavian artery IMPRESSION: No acute traumatic injury involving the chest seen 7 mm groundglass opacity right lower lobe. Per Fleischner recommendations CT chest in 6-12 months rec ommended
[2024-05-21] MEDS ORDERED: LIDOCAINE 1% MPF 5 ML VIAL ONE (11:04)
--- NOTE | 2024-05-21 12:48 | ER ---
Nurse's Notes [facility] Name: Fela Ayoub Age: 73 yrs Sex: Female : 1950 Arrival Date: 05/21/2024 Time: 09:09 Bed 18 Private MD: Diagnosis: Facial Laceration/ Laceration without foreign body of cheek and temporomandibular area Presentation: 05/21 09:12 Chief complaint: EMS states: MECHANICAL FALL AT HOME. Coronavirus screen: At this time, bp the client does not indicate any symptoms associated with coronavirus-19. Ebola Screen: No symptoms or risks identified at this time. Initial Sepsis Screen: Does the patient meet any 2 criteria? No. Patient's initial sepsis screen is negative. Does the patient have a suspected source of infection? No. Patient's initial sepsis screen is negative. Risk Assessment: Do you want to hurt yourself or someone else? Patient reports no desire to harm self or others. Onset of symptoms was May 21, 2024 at 07:00. Care prior to arrival: IV initiated. 20 GA, in the left antecubital area, Glucose check: 189. 09:12 Method Of Arrival: EMS: [facility] bp 09:12 Acuity: ALE 3 bp Triage Assessment: 09:17 General: Appears in no apparent distress. uncomfortable, Behavior is cooperative, bp appropriate for age, anxious. Pain: Complains of pain in face. EENT: No deficits noted. Neuro: Level of Consciousness is awake, alert, obeys commands, Oriented to Appropriate for age. Cardiovascular: No deficits noted. Respiratory: No deficits noted. GI: No signs and/or symptoms were reported involving the gastrointestinal system. : No signs and/or symptoms were reported regarding the genitourinary system. Derm: No deficits noted. Musculoskeletal: No deficits noted. Injury Description: Laceration sustained to nose and mouth. Historical: - Allergies: 09:17 Hydrocodone-Acetaminophen; hallucination; bp 09:17 Iodine; bp 09:17 Plavix; bp - PMHx: 09:17 Cerebrovascular accident; CHRONIC URINARY TRACT INFECTION; Diabetes - IDDM; High bp Cholesterol; Hypertension; Myocardial infarction; squamous cell carcinoma; - PSHx: 09:17 cardiac stents; section; Cholecystectomy; Coronary artery bypass graft; Total bp abdominal hysterectomy; - Immunization history:: Adult Immunizations up to date. - Infectious Disease History:: Denies. - Social history:: Smoking status: Patient denies any tobacco usage or history of. Screenin:22 [facility] ED Fall Risk Assessment (Adult) History of falling in the last 3 months, bp including since admission Yes- single mechanical fall (1 pt) Confusion or Disorientation No (0 pts) Intoxicated or Sedated No (0 pts) Impaired Gait No (0 pts) Mobility Assist Device Used No (0 pt) Altered Elimination No (0 pt) Score/Fall Risk Level 0 - 2 = Low Risk Oriented to surroundings, Maintained a safe environment. Abuse screen: Denies threats or abuse. Denies injuries from another. Nutritional screening: No deficits noted. Tuberculosis screening: No symptoms or risk factors identified. Assessment: 09:20 General: Appears in no apparent distress. uncomfortable, Behavior is cooperative, bp appropriate for age, anxious. 10:01 Reassessment: No changes from previously documented assessment. Patient is alert, bp oriented x 3, equal unlabored respirations, skin warm/dry/pink. 11:06 Reassessment: Patient appears in no apparent distress at this time. Patient is alert, bp oriented x 3, equal unlabored respirations, skin warm/dry/pink. Vital Signs: 09:12 BP 185 / 74; Pulse 86; Resp 16; Temp 98; Pulse Ox 98% ; bp 10:01 BP 173 / 77; Pulse 65; Resp 18; Pulse Ox 98% ; bp 11:05 BP 179 / 66; Pulse 64; Resp 16; Pulse Ox 95% ; bp 13:30 BP 165 / 79; Pulse 67; Resp 16; Pulse Ox 95% ; bp ED Course: 09:12 Patient arrived in ED. bp 09:14 Triage completed. bp 09:16 Gino Hollins MD is Attending Physician. [email or web address] 09:17 Arm band placed on. bp 09:20 Maintain EMS IV. Dressing intact. Good blood return noted. Site clean \T\ dry. Gauge \T\ bp site: 20 LAC. Flushed with 10 mL NS. 09:22 Patient has correct armband on for positive identification. bp 09:50 CT Head Brain wo Cont In Process Unspecified. EDMS 09:52 Facial Bones W/ Mpr In Process Unspecified. EDMS 09:52 Thorax Wo Con In Process Unspecified. EDMS 10:00 Jude Diaz, RN is Primary Nurse. bp 13:31 Assist provider with laceration repair on nose that was 2.5 cm. or less using bp Dermabond. Performed by Gino Hollins MD. IV discontinued, intact, bleeding controlled, No redness/swelling at site. Pressure dressing applied. Administered Medications: 10:00 Drug: Ondansetron PO 4 mg PO once Route: PO; bp 10:56 Follow up: Response: No adverse reaction bp Medication: 13:32 VIS not applicable for this client. bp Outcome: 12:47 Discharge ordered by MD. davalos 13:31 Discharged to home via wheelchair, with family, bp 13:31 Condition: stable 13:31 Discharge instructions given to patient, family, Instructed on discharge instructions, follow up and referral plans. wound care, Demonstrated understanding of instructions, follow-up care, wound care, 13:33 Patient left the ED. bp Signatures: Dispatcher [employer] EDDC Jude Diaz, CARL[place] RN Gino Aguiar MD MD [email or web address]
--- NOTE | 2024-05-21 12:48 | EDPHYS ---
Physician Documentation [facility] Name: Fela Ayoub Age: 73 yrs Sex: Female : 1950 Arrival Date: 05/21/2024 Time: 09:09 Bed 18 Private MD: ED Physician Gino Hollins HPI: 05/21 16:44 This 73 yrs old Female presents to ER via EMS with complaints of Fall Injury. jj9 09:33 73-year-old female comes to the emergency department for evaluation of facial jj9 contusion, the patient was walking down a ramp holding to a rail and lost her balance landing on her face with pain, deformity and laceration to the nose. She denies LOC denies chest, pelvis or any other abnormality.. Historical: - Allergies: 09:17 Hydrocodone-Acetaminophen; hallucination; bp 09:17 Iodine; bp 09:17 Plavix; bp - PMHx: 09:17 Cerebrovascular accident; CHRONIC URINARY TRACT INFECTION; Diabetes - IDDM; High bp Cholesterol; Hypertension; Myocardial infarction; squamous cell carcinoma; - PSHx: 09:17 cardiac stents; section; Cholecystectomy; Coronary artery bypass graft; Total bp abdominal hysterectomy; - Immunization history:: Adult Immunizations up to date. - Infectious Disease History:: Denies. - Social history:: Smoking status: Patient denies any tobacco usage or history of. ROS: 09:34 Constitutional: Negative for fever, chills, and weight loss, Eyes: Negative for injury, jj9 pain, redness, and discharge, ENT: Pain to the nose, swelling to the nose, bleeding Neck: Negative for injury, pain, and swelling, Cardiovascular: Negative for chest pain, palpitations, and edema, Respiratory: Negative for shortness of breath, cough, wheezing, and pleuritic chest pain, Abdomen/GI: Negative for abdominal pain, nausea, vomiting, diarrhea, and constipation, Back: Negative for injury and pain, : Negative for injury, bleeding, discharge, and swelling, MS/Extremity: Negative for injury and deformity, Skin: Negative for injury, rash, and discoloration, Neuro: Negative for headache, weakness, numbness, tingling, and seizure, Psych: Negative for depression, anxiety, suicide ideation, homicidal ideation, and hallucinations, Endocrine: Negative for neck swelling, polydipsia, polyuria, polyphagia, and marked weight changes, Exam: 09:35 ENT: Nasal swelling with dried blood to the nares, small laceration to the right side jj9 of the nose there is upper lip swelling. Neck: Trachea midline, no thyromegaly or masses palpated, and no cervical lymphadenopathy. Supple, full range of motion without nuchal rigidity, or vertebral point tenderness. No Meningismus. Chest/axilla: Normal chest wall appearance and motion. Nontender with no deformity. No lesions are appreciated. Cardiovascular: Regular rate and rhythm with a normal S1 and S2. No gallops, murmurs, or rubs. Normal PMI, no JVD. No pulse deficits. Respiratory: Lungs have equal breath sounds bilaterally, clear to auscultation and percussion. No rales, rhonchi or wheezes noted. No increased work of breathing, no retractions or nasal flaring. Abdomen/GI: Soft, non-tender, with normal bowel sounds. No distension or tympany. No guarding or rebound. No evidence of tenderness throughout. Back: No spinal tenderness. No costovertebral tenderness. Full range of motion. Skin: Warm, dry with normal turgor. Normal color with no rashes, no lesions, and no evidence of cellulitis. MS/ Extremity: Pulses equal, no cyanosis. Neurovascular intact. Full, normal range of motion. Neuro: Awake and alert, GCS 15, oriented to person, place, time, and situation. Cranial nerves II-XII grossly intact. Motor strength 5/5 in all extremities. Sensory grossly intact. Cerebellar exam normal. Normal gait. Vital Signs: 09:12 BP 185 / 74; Pulse 86; Resp 16; Temp 98; Pulse Ox 98% ; bp 10:01 BP 173 / 77; Pulse 65; Resp 18; Pulse Ox 98% ; bp 11:05 BP 179 / 66; Pulse 64; Resp 16; Pulse Ox 95% ; bp 13:30 BP 165 / 79; Pulse 67; Resp 16; Pulse Ox 95% ; bp Laceration: 12:50 Wound Repair of 2cm ( 0.8in ) subcutaneous laceration to nose. Linear shaped.. Distal jj9 neuro/vascular/tendon intact. Anesthesia: none with none. Wound prep: Simple cleansing, Wound irrigation. Skin closed with 1-0 Adhesive skin closure using Dermabond. Patient tolerated well. MDM: 09:17 Medical Screening Exam initiated jj9 12:43 Differential diagnosis: abrasion, closed head injury, contusion, fracture, laceration. jj9 Data reviewed: vital signs, nurses notes. ED course: 73-year-old female comes emergency department after a mechanical fall while going down stairs patient lost her balance and hit the ground with facial laceration to the right nose. She denies LOC, preceding chest pain or shortness of breath. She feels fine other than pain to the right nose. Medications were offered patient declined. CT scan of the head shows no acute intracranial abnormality, CT scan of the maxillofacial bones shows a chip nasal fracture, chest CT shows no acute intrathoracic abnormality lung nodule was seen and CT scan recommended in 6 to 12 months for follow-up. Patient feels fine and ready go home. Small laceration to the right nose repaired at bedside with Dermabond and Steri-Strips. Advised to continue home medications, follow with PCP I will start her on oral antibiotics Augmentin. Follow with PCP and return to the emergency department worsening of symptoms or any other preoperative patient understand and agrees with the plan.. 05/21 09:29 Order name: CT Head Brain wo Cont; Complete Time: 10:16 jj9 05/21 09:34 Order name: Facial Bones W/ Mpr; Complete Time: 10:16 EDMS 05/21 09:46 Order name: Thorax Wo Con; Complete Time: 12:43 EDMS Administered Medications: 10:00 Drug: Ondansetron PO 4 mg PO once Route: PO; bp 10:56 Follow up: Response: No adverse reaction bp Disposition Summary: 05/21/24 12:47 Discharge Ordered Notes: Location: Home jj9 Problem: new jj9 Symptoms: have improved jj9 Condition: Stable jj9 Diagnosis - Facial Laceration/ Laceration without foreign body of cheek and temporomandibular jj9 area Followup: jj9 - With: Private Physician - When: - Reason: Re-evaluation by your physician Discharge Instructions: - Discharge Summary Sheet jj9 - Facial Laceration jj9 - Nasal Fracture, [id number] jj9 Forms: - Medication Reconciliation Form jj9 - Antibiotic Education jj9 - Prescription Opioid Use jj9 - Patient Portal Instructions jj9 - Leadership Thank You Letter jj9 Prescriptions: - Augmentin 500-125 mg Oral tablet - take 1 tablet ORAL route 2 times per day for 10 days; 10 tablet; Refills: 0, jj9 Product Selection Permitted Signatures: Dispatcher [employer] Jude Orta, RN RN Gino Aguiar MD MD jj9 Corrections: (The following items were deleted from the chart) 09:34 09:29 Maxillofacial W/Wo+[email or web address] ordered. JESSICA LOPEZ
[2024-05-21] MEDS ORDERED: DERMABOND SKIN ADHESIVE TOP ONE (12:54)
[2024-05-21 15:49] VITALS: TEMP 98
[2024-05-21 15:52] VITALS: O2SAT 95
[2024-05-21 15:53] VITALS: BP 165/79
== END 2024-05-21 13:33 | disposition home or self-care (01) ==
LOC: ER 09:09
DX: S01.21XA Laceration without foreign body of nose, initial encounter (principal); W10.2XXA Fall (on)(from) incline, initial encounter; Z95.1 Presence of aortocoronary bypass graft
CPT/HCPCS: 70450; 71250; 70486; 76377; 12011; Q0162; J2003